=== PATIENT | male | born 1935 | race Two or more races ===

== ENCOUNTER → 2016-11-05 | Outpatient (CLI) | payer MEDICARE, BC ==
[2016-09-16 08:30] VITALS: BP 146/71
[~2016-11-05] MED LIST: ASPI81TA9 PO; ATOR10TA60 PO; CELE200C PO; DULO60CA44 PO; GLIM4TAB2 PO; INSU100V8 SQ; METF500T4 PO; METO25TA4 PO; MIDO2.5T PO; TAMS0.4C2 PO
== END | disposition home or self-care (01) ==
LOC: LAB 15:57
PROVIDERS: ATTEND Nurse Practitioner Occupational Health
DX: N40.0 Benign prostatic hyperplasia without lower urinary tract symptoms (principal)
CPT/HCPCS: 36415; G0103

== ENCOUNTER 2017-01-03 19:43 | Inpatient (IN) | payer MEDICARE, BC ==
[~2017-01-03] VITALS: Ht 175.3 cm; Wt 64.1 kg
[2017-01-03 21:55] LABS: BASO % 0 % (0-3); EOS % 2 % (0-3); HEMATOCRIT 37.6 % (39.0-53.0); HEMOGLOBIN 12.2 g/dL (13.0-17.5); LYMPH # 1.5 x10^3/uL (1.0-4.8); LYMPH % 16 % (24-48); MEAN CORPUSCULAR HEMOGLOBIN 28 pg (25-35); MEAN CORPUSCULAR HGB CONC 33 g/dL (31-37); MEAN CORPUSCULAR VOLUME 86 fL (79-100); MONO % 10 % (0-9); NEUT % 73 % (31-73); PLATELET COUNT 259 x10^3/uL (140-400); RED BLOOD COUNT 4.36 x10^6/uL (4.30-5.70); RED CELL DISTRIBUTION WIDTH 13.6 % (11.5-14.5); WHITE BLOOD COUNT 9.2 x10^3/uL (4.0-11.0)
[2017-01-03] MEDS ORDERED: IV NORMAL SALINE 500ML BAG 500 ML IV SCH (22:00)
[2017-01-03 22:03] LABS: INR 1.2 (0.8-1.1); PROTHROMBIN TIME PATIENT 14.1 SEC (11.7-14.0)
[2017-01-03 22:05] LABS: CALCIUM 9.5 mg/dL (8.5-10.1); CREATININE 1.5 mg/dL (0.7-1.3); POTASSIUM 4.2 mmol/L (3.5-5.1)
[2017-01-03 22:11] LABS: ALBUMIN 2.9 g/dL (3.4-5.0); ALBUMIN/GLOBULIN RATIO 0.5 (1.0-1.7); DIRECT BILIRUBIN 0.2 mg/dL (0.0-0.2); TOTAL BILIRUBIN 0.8 mg/dL (0.2-1.0); TOTAL PROTEIN 8.4 g/dL (6.4-8.2)
--- NOTE | 2017-01-03 22:28 | RAD ---
PROCEDURE CT ABDOMEN AND PELVIS HISTORY rectal bleed; abd pain TECHNIQUE AXIAL IMAGES THROUGH THE THE ABDOMEN AND PELVIS WERE OBTAINED. NO IV CONTRAST WAS ADMINISTERED. THERE IS SOME CONTRAST AND PART OF THE GASTROINTESTINAL SYSTEM. COMPARISON NONE FINDINGS THE LUNG BASES ARE CLEAR. THE LIVER AND SPLEEN APPEAR UNREMARKABLE. THERE IS CHOLELITHIASIS THE PANCREAS APPEARS UNREMARKABLE. THERE ARE NO ADRENAL MASSES. THERE IS CONSIDERABLE STRANDING SURROUNDING THE LEFT KIDNEY. THE ETIOLOGY IS UNCLEAR. UNDERLYING INFECTION, PYELONEPHRITIS, ACCOUNTING FOR THE APPEARANCE SHOULD BE CONSIDERED. THERE IS NO HYDRONEPHROSIS THERE IS NO HYDROURETER. AN ADDITIONAL FINDING IN THE ABDOMEN IS NOT SEEN. IN THE PELVIS THERE IS SLIGHT THICKENING OF THE URINARY BLADDER. THIS MAY REFLECT A CHRONIC OUTLET OBSTRUCTIVE PROCESS. UNDERLYING CYSTITIS IS NOT EXCLUDED. AN ADDITIONAL FINDING IN THE PELVIS IS NOT SEEN. IMPRESSION Cholelithiasis. Stranding surrounding the left kidney. Infection, pyelonephritis, not excluded. Mild diffuse thickening of the urinary bladder wall suggesting possible chronic outlet obstructive process or cystitis Electronically signed by: Josesito Alvarez (Jan 03, 2017 22:27:15)
[2017-01-03] MEDS ORDERED: IV NORMAL SALINE 500ML BAG 500 ML IV ONE (23:12)
--- NOTE | 2017-01-03 23:15 | PHYS DOC ---
Past Medical History Past Medical History: Diabetes-Type II, Prostatitis, URI, Other Additional Past Medical Histor: enlarged prostate Past Surgical History: Other Additional Past Surgical Histo: R eye sx, Alcohol Use: None Drug Use: None Adult General Chief Complaint Chief Complaint: RECTAL BLEED HPI HPI 81-year-old male presenting the emergency department today to the emergency department with dark black stools for the past few days. He denies abdominal pain. He denies fevers or chills. He is not on anticoagulants. He has a history of type 2 diabetes. Location GI tract. Duration intermittent. Associated with defecation. Review of systems is negative for chest pain shortness of breath fevers chills. He denies nausea or vomiting. All other review of systems is negative unless otherwise noted in history of present illness. Review of Systems Review of Systems SEE ABOVE. Current Medications Current Medications Current Medications Medications (Trade) Dose Ordered Sig/Chay Start Time Stop Time Status Last Admin Dose Admin Sodium Chloride (Iv Sodium Chloride 0.9% 500ml Bag) 500 ml @ 500 mls/hr Q1H 01/03/17 22:00 Allergies Allergies Allergies Coded Allergies Type Severity Reaction Last Updated Verified No Known Drug Allergies 05/31/15 No Physical Exam Physical Exam Constitutional: Well developed, well nourished, no acute distress, non-toxic appearance. HENT: Normocephalic, atraumatic, bilateral external ears normal, oropharynx moist, no oral exudates, nose normal. [] Eyes: PERRLA, EOMI, conjunctiva normal, no discharge. [] Neck: Normal range of motion, no tenderness, supple, no stridor. Cardiovascular:mild tachy heart rate with regular rhythm, no murmur [] Lungs & Thorax: Bilateral breath sounds clear to auscultation Abdomen: Bowel sounds normal, soft, no tenderness, no masses, no pulsatile masses. Rectal exam showed mildly dark stool. Fecal occult testing sent. Skin: Warm, dry, no erythema, no rash. [] Back: No tenderness, no CVA tenderness. Extremities: No tenderness, no cyanosis, no clubbing, ROM intact, no edema. [] Neurologic: Alert and oriented X 3, normal motor function, normal sensory function, no focal deficits noted. [] Psychologic: Affect normal, judgement normal, mood normal. [] Current Patient Data Vital Signs Vital Signs Date Time Temp Pulse Resp B/P Pulse Ox O2 Delivery O2 Flow Rate FiO2 01/03/17 19:43 98.4 113 18 129/66 97 Room Air 98.4 Lab Values Laboratory Tests Test 01/03/17 20:14 White Blood Count 9.2x10^3/uL (4.0-11.0) Red Blood Count 4.36x10^6/uL (4.30-5.70) Hemoglobin 12.2g/dL (13.0-17.5) L Hematocrit 37.6% (39.0-53.0) L Mean Corpuscular Volume 86fL (79-100) Mean Corpuscular Hemoglobin 28pg (25-35) Mean Corpuscular Hemoglobin Concent 33g/dL (31-37) Red Cell Distribution Width 13.6% (11.5-14.5) Platelet Count 259x10^3/uL (140-400) # Neutrophils (%) (Auto) 73% (31-73) Lymphocytes (%) (Auto) 16% (24-48) L Monocytes (%) (Auto) 10% (0-9) H Eosinophils (%) (Auto) 2% (0-3) Basophils (%) (Auto) 0% (0-3) Neutrophils # (Auto) 6.7x10^3uL (1.8-7.7) Lymphocytes # (Auto) 1.5x10^3/uL (1.0-4.8) Monocytes # (Auto) 0.9x10^3/uL (0.0-1.1) Eosinophils # (Auto) 0.2x10^3/uL (0.0-0.7) Basophils # (Auto) 0.0x10^3/uL (0.0-0.2) Prothrombin Time 14.1SEC (11.7-14.0) H Prothrombin Time INR 1.2 (0.8-1.1) H PTT 40SEC (24-38) H Sodium Level 136mmol/L (136-145) Potassium Level 4.2mmol/L (3.5-5.1) Chloride Level 94mmol/L (98-107) L Carbon Dioxide Level 26mmol/L (21-32) Anion Gap 16 (6-14) H Blood Urea Nitrogen 32mg/dL (8-26) H Creatinine 1.5mg/dL (0.7-1.3) H Estimated GFR (Cockcroft-Gault) 45.0 BUN/Creatinine Ratio 21 (6-20) H Glucose Level 332mg/dL (70-99) H Calcium Level 9.5mg/dL (8.5-10.1) Total Bilirubin 0.8mg/dL (0.2-1.0) Direct Bilirubin 0.2mg/dL (0.0-0.2) Aspartate Amino Transferase (AST) 17U/L (15-37) Alanine Aminotransferase (ALT) 16U/L (16-63) Alkaline Phosphatase 152U/L (46-116) H Total Protein 8.4g/dL (6.4-8.2) H Albumin 2.9g/dL (3.4-5.0) L Albumin/Globulin Ratio 0.5 (1.0-1.7) L Laboratory Tests 01/03/17 20:14 Laboratory Tests 01/03/17 20:14 EKG EKG [] Radiology/Procedures Radiology/Procedures [] Course & Med Decision Making Course & Med Decision Making Pertinent Labs and Imaging studies reviewed. (See chart for details) [] 81-year-old male presenting to the emergency department today after having dark stool consistent with blood in his stool. Vital signs showed tachycardia otherwise unremarkable. Physical exam showed nontender abdomen. Blood work sent which showed stable anemia. Coags normal. Chemistry panel shows uremia with elevation in creatinine. Hyperglycemia as well. Otherwise unremarkable. Rectal exam showed dark stool fecal occult blood sent. Patient was given IV fluids protonic sent admitted to our hospital for GI consultation. Dragon Disclaimer Dragon Disclaimer This electronic medical record was generated, in whole or in part, using a voice recognition dictation system. Departure Departure Impression: Primary Impression: Melena Disposition: ADMITTED INPATIENT Condition: STABLE Referrals: LUISITO RUSSELL MD (PCP) ILENE LOMBARDI MD Jan 03, 2017 23:15
[2017-01-03 23:18] LABS: NEG OBC FOB NEG; POS OBC FOB POS
[2017-01-03] MEDS ORDERED: PANTOPRAZOLE IV PUSH 40 MG VIAL. IVP ONE (23:30)
[2017-01-03 23:41] LABS: BILIRUBIN,URINE NEGATIVE (NEG); GLUCOSE,URINE >=1000 mg/dL (NEG); NITRITE,URINE NEGATIVE (NEG); PROTEIN,URINE 30 mg/dL (NEG-TRACE)
[2017-01-03 23:49] LABS: BACTERIA,URINE MANY /HPF (0-FEW); RBC,URINE 20-40 /HPF (0-2); SQUAMOUS EPITHELIAL CELL,UR FEW /LPF; WBC,URINE TNTC /HPF (0-4)
[2017-01-04] VITALS (7 sets, daily range): BP systolic 102–168; BP diastolic 59–76
[2017-01-04] MEDS ORDERED: IV NORMAL SALINE 1000ML BAG 1,000 ML IV ONE (00:15)
[2017-01-04 04:48] LABS: BASO % 1 % (0-3); EOS % 2 % (0-3); HEMATOCRIT 36.5 % (39.0-53.0); HEMOGLOBIN 11.8 g/dL (13.0-17.5); LYMPH # 1.4 x10^3/uL (1.0-4.8); LYMPH % 18 % (24-48); MEAN CORPUSCULAR HEMOGLOBIN 28 pg (25-35); MEAN CORPUSCULAR HGB CONC 32 g/dL (31-37); MEAN CORPUSCULAR VOLUME 86 fL (79-100); MONO % 11 % (0-9); NEUT % 69 % (31-73); PLATELET COUNT 229 x10^3/uL (140-400); RED BLOOD COUNT 4.24 x10^6/uL (4.30-5.70); RED CELL DISTRIBUTION WIDTH 13.6 % (11.5-14.5)
[2017-01-04 05:16] LABS: CALCIUM 8.9 mg/dL (8.5-10.1); CREATININE 1.3 mg/dL (0.7-1.3); GFR 53.1; POTASSIUM 4.2 mmol/L (3.5-5.1)
[2017-01-04] MEDS ORDERED: DEXTROSE 50% 25 GM / 50ML DISP.SYRIN. IV PRN (08:30)
--- NOTE | 2017-01-04 08:44 | PDOC ---
Provider Note Provider Note [id number] RADHA WILL MD Jan 04, 2017 08:44
[2017-01-04] MEDS ORDERED: PANTOPRAZOLE 40 MG TABLET. PO SCH (09:30)
[2017-01-04] MEDS: CEFTRIAXONE SODIUM 1 GM in IV NORMAL SALINE 50ML 50 ML IV SCH (09:34)
[2017-01-04] MEDS: IV 1/2 NORMAL SALINE 1,000 ML IV SCH ×2 (09:35→23:26)
[2017-01-04] MEDS: DULOXETINE HCL 30 MG CAPSULE.DR. PO SCH (09:36)
[2017-01-04] MEDS: METOPROLOL TART IMMED RELEASE 25 MG TABLET PO SCH ×2 (09:40→20:53)
[2017-01-04] MEDS: TAMSULOSIN 0.4 MG CAP.ER.24H. PO SCH (09:40)
--- NOTE | 2017-01-04 10:17 | PDOC2 ---
CONSULT Date of Consult Date of Consult DATE: 01/04/17 TIME: 10:03 Reason for Consult Reason for Consult: "Melena" Referring Physician Referring Physician: ER physician Source Source: Chart review, Patient History of Present Illness Reason for Visit: 81 y/o male we were asked to see for "melena". Patient denies any black stools or overt hematochezia, but does admit to hematuria (urology has been consulted) . Denies abdominal pain, nausea, vomiting, diarrhea or constipation. When we saw him last September, he had been having diarrhea from his metformin; this stopped with stopping the med. Wt/appetite stable. No prior endoscopies of any kind. Denies heartburn, dysphagia, PUD, liver or pancreatic history. On imaging this admission, gallstones noted. No tobacco or alcohol use currently. Per "summary" taking ASA and Celebrex at home. Past Medical History Cardiovascular: CAD (NSTEMI last September), HTN, Hyperlipidemia Psych: Anxiety, Depression Musculoskeletal: Osteoarthritis Renal/: Benign prostatic enlarg., Hematuria Endocrine: Diabetes Past Surgical History Past Surgical History: Tonsillectomy, Other (some surgery on right eye) Family History Family History Non-contributory due to age. Family History: Other Social History No ALCOHOL: none Drugs: None Lives: with Family Current Problem List Problem List Problems Medical Problems: (1) Melena Status: Acute Current Medications Current Medications Current Medications Sodium Chloride (Iv Sodium Chloride 0.9% 500ml Bag) 500 ml @ 500 mls/hr Q1H IV ; Start 01/03/17 at 22:00; Stop 01/03/17 at 23:12; Status DC Pantoprazole Sodium 40 mg 40 mg 1X ONCE IVP Last administered on 01/03/17 23: 20; Start 01/03/17 at 23:30; Stop 01/03/17 at 23:31; Status DC Sodium Chloride 500 ml @ 500 mls/hr 1X ONCE IV Last administered on 01/03/17 22:12; Start 01/03/17 at 23:12; Stop 01/04/17 at 00:11; Status DC Sodium Chloride (Iv Sodium Chloride 0.9% 1000ml Bag) 1,000 ml @ 125 mls/hr 1X ONCE IV Last administered on 01/04/17 00:57; Start 01/04/17 at 00:15; Stop at 08:14; Status DC Metoprolol Tartrate (Lopressor) 25 mg BID PO Last administered on 01/04/17 09: 40; Start 01/04/17 at 09:00 Tamsulosin HCl (Flomax) 0.4 mg DAILY PO Last administered on 01/04/17 09:40; Start 01/04/17 at 09:00 Duloxetine HCl (Cymbalta) 60 mg DAILY PO Last administered on 01/04/17 09:36; Start 01/04/17 at 09:00 Sucralfate (Carafate) 1 gm QIDACHS PO ; Start 01/04/17 at 11:30 Pantoprazole Sodium 40 mg 40 mg DAILYAC PO Last administered on 01/04/17 09:40 ; Start 01/04/17 at 09:30 Ceftriaxone Sodium/Sodium Chloride (Rocephin/Iv Sodium Chloride 0.9% 50ml) 50 ml @ 100 mls/hr Q24H IV Last administered on 01/04/17 09:34; Start 01/04/17 at 08:30 Insulin Aspart (Novolog) 0-9 UNITS TIDWMEALS SQ ; Start 01/04/17 at 12:00 Dextrose 12.5 gm 12.5 gm PRN Q15MIN PRN IV SEE COMMENTS; Start 01/04/17 at 08:30 Sodium Chloride (Iv Sodium Chloride 0.45%) 1,000 ml @ 75 mls/hr [id number] IV Last administered on 01/04/17 09:35; Start 01/04/17 at 08:45 Insulin Detemir (Levemir) 15 units [id number] SQ ; Start 01/04/17 at 12:00 Active Scripts Active Aspirin Ec (Aspirin) 81 Mg Tablet. 324 Mg PO [id number] Atorvastatin Calcium 10 Mg Tablet 10 Mg PO QHS Metoprolol Tartrate 25 Mg Tablet 25 Mg PO BID Midodrine Hcl 2.5 Mg Tablet 2.5 Mg PO [id number] Reported Lantus (Insulin Glargine,Hum.rec.anlog) 100 Unit/1 Ml Vial 1 Unit SQ Glimepiride 4 Mg Tablet 4 Mg PO DAILY Celebrex (Celecoxib) 200 Mg Capsule 200 Mg PO BID 30 Days Duloxetine Hcl 60 Mg Capsule. 60 Mg PO DAILY Tamsulosin Hcl 0.4 Mg Cap.er.24h 0.4 Mg PO DAILY Allergies Allergies: Coded Allergies: No Known Drug Allergies (Unverified , 05/31/15) ROS Review of System Except for hematuria, 10-point review otherwise negative. Physical Exam General: Oriented X3, Cooperative, No acute distress Lungs: Clear to auscultation Heart: Regular rate, Normal S1, Normal S2, No murmurs Abdomen: Normal bowel sounds, Soft, No tenderness, No hepatosplenomegaly, No masses Extremities: No cyanosis, No edema Skin: No significant lesion Neuro: Normal speech, Strength at 5/5 X4 ext, Normal tone, Sensation intact, Cranial nerves 3-12 NL, Reflexes 2+ Psych/Mental Status: Mental status NL, Mood NL MUSCULOSKELETAL: No deformity, No swelling Vitals VITALS Vital Signs Date Time Temp Pulse Resp B/P Pulse Ox O2 Delivery O2 Flow Rate FiO2 01/04/17 09:40 105 139/76 01/04/17 07:00 97.6 18 96 Room Air 97.6 Labs Labs Laboratory Tests Test 01/03/17 20:14 01/03/17 23:00 01/03/17 23:23 01/04/17 03:50 White Blood Count 9.2x10^3/uL (4.0-11.0) 8.0x10^3/uL (4.0-11.0) Red Blood Count 4.36x10^6/uL (4.30-5.70) 4.24x10^6/uL (4.30-5.70) Hemoglobin 12.2g/dL (13.0-17.5) 11.8g/dL (13.0-17.5) Hematocrit 37.6% (39.0-53.0) 36.5% (39.0-53.0) Mean Corpuscular Volume 86fL (79-100) 86fL (79-100) Mean Corpuscular Hemoglobin 28pg (25-35) 28pg (25-35) Mean Corpuscular Hemoglobin Concent 33g/dL (31-37) 32g/dL (31-37) Red Cell Distribution Width 13.6% (11.5-14.5) 13.6% (11.5-14.5) Platelet Count 259x10^3/uL (140-400) 229x10^3/uL (140-400) Neutrophils (%) (Auto) 73% (31-73) 69% (31-73) Lymphocytes (%) (Auto) 16% (24-48) 18% (24-48) Monocytes (%) (Auto) 10% (0-9) 11% (0-9) Eosinophils (%) (Auto) 2% (0-3) 2% (0-3) Basophils (%) (Auto) 0% (0-3) 1% (0-3) Neutrophils # (Auto) 6.7x10^3uL (1.8-7.7) 5.5x10^3uL (1.8-7.7) Lymphocytes # (Auto) 1.5x10^3/uL (1.0-4.8) 1.4x10^3/uL (1.0-4.8) Monocytes # (Auto) 0.9x10^3/uL (0.0-1.1) 0.9x10^3/uL (0.0-1.1) Eosinophils # (Auto) 0.2x10^3/uL (0.0-0.7) 0.2x10^3/uL (0.0-0.7) Basophils # (Auto) 0.0x10^3/uL (0.0-0.2) 0.0x10^3/uL (0.0-0.2) Prothrombin Time 14.1SEC (11.7-14.0) Prothromb Time International Ratio 1.2 (0.8-1.1) Activated Partial Thromboplast Time 40SEC (24-38) Sodium Level 136mmol/L (136-145) 139mmol/L (136-145) Potassium Level 4.2mmol/L (3.5-5.1) 4.2mmol/L (3.5-5.1) Chloride Level 94mmol/L (98-107) 102mmol/L (98-107) Carbon Dioxide Level 26mmol/L (21-32) 26mmol/L (21-32) Anion Gap 16 (6-14) 11 (6-14) Blood Urea Nitrogen 32mg/dL (8-26) 28mg/dL (8-26) Creatinine 1.5mg/dL (0.7-1.3) 1.3mg/dL (0.7-1.3) Estimated GFR (Cockcroft-Gault) 45.0 53.1 BUN/Creatinine Ratio 21 (6-20) Glucose Level 332mg/dL (70-99) 215mg/dL (70-99) Calcium Level 9.5mg/dL (8.5-10.1) 8.9mg/dL (8.5-10.1) Total Bilirubin 0.8mg/dL (0.2-1.0) Direct Bilirubin 0.2mg/dL (0.0-0.2) Aspartate Amino Transf (AST/SGOT) 17U/L (15-37) Alanine Aminotransferase (ALT/SGPT) 16U/L (16-63) Alkaline Phosphatase 152U/L (46-116) Total Protein 8.4g/dL (6.4-8.2) Albumin 2.9g/dL (3.4-5.0) Albumin/Globulin Ratio 0.5 (1.0-1.7) Stool Occult Blood Negative (NEG) Urine Collection Type Unknown Urine Color Yellow Urine Clarity Cloudy Urine pH 5.0 Urine Specific [place] 1.025 Urine Protein 30mg/dL (NEG-TRACE) Urine Glucose (UA) >=1000mg/dL (NEG) Urine Ketones (Stick) 15mg/dL (NEG) Urine Blood Large (NEG) Urine Nitrite Negative (NEG) Urine Bilirubin Negative (NEG) Urine Urobilinogen Dipstick 1.0mg/dL (0.2 mg/dL) Urine Leukocyte Esterase Moderate (NEG) Urine RBC 20-40/HPF (0-2) Urine WBC Tntc/HPF (0-4) Urine Squamous Epithelial Cells Few/LPF Urine Bacteria Many/HPF (0-FEW) Urine Mucus Slight/LPF Test 01/04/17 07:04 Glucose (Fingerstick) 175mg/dL (70-99) Laboratory Tests Test 01/03/17 20:14 01/03/17 23:00 01/03/17 23:23 01/04/17 03:50 White Blood Count 9.2x10^3/uL (4.0-11.0) 8.0x10^3/uL (4.0-11.0) Red Blood Count 4.36x10^6/uL (4.30-5.70) 4.24x10^6/uL (4.30-5.70) Hemoglobin 12.2g/dL (13.0-17.5) 11.8g/dL (13.0-17.5) Hematocrit 37.6% (39.0-53.0) 36.5% (39.0-53.0) Mean Corpuscular Volume 86fL (79-100) 86fL (79-100) Mean Corpuscular Hemoglobin 28pg (25-35) 28pg (25-35) Mean Corpuscular Hemoglobin Concent 33g/dL (31-37) 32g/dL (31-37) Red Cell Distribution Width 13.6% (11.5-14.5) 13.6% (11.5-14.5) Platelet Count 259x10^3/uL (140-400) 229x10^3/uL (140-400) Neutrophils (%) (Auto) 73% (31-73) 69% (31-73) Lymphocytes (%) (Auto) 16% (24-48) 18% (24-48) Monocytes (%) (Auto) 10% (0-9) 11% (0-9) Eosinophils (%) (Auto) 2% (0-3) 2% (0-3) Basophils (%) (Auto) 0% (0-3) 1% (0-3) Neutrophils # (Auto) 6.7x10^3uL (1.8-7.7) 5.5x10^3uL (1.8-7.7) Lymphocytes # (Auto) 1.5x10^3/uL (1.0-4.8) 1.4x10^3/uL (1.0-4.8) Monocytes # (Auto) 0.9x10^3/uL (0.0-1.1) 0.9x10^3/uL (0.0-1.1) Eosinophils # (Auto) 0.2x10^3/uL (0.0-0.7) 0.2x10^3/uL (0.0-0.7) Basophils # (Auto) 0.0x10^3/uL (0.0-0.2) 0.0x10^3/uL (0.0-0.2) Prothrombin Time 14.1SEC (11.7-14.0) Prothromb Time International Ratio 1.2 (0.8-1.1) Activated Partial Thromboplast Time 40SEC (24-38) Sodium Level 136mmol/L (136-145) 139mmol/L (136-145) Potassium Level 4.2mmol/L (3.5-5.1) 4.2mmol/L (3.5-5.1) Chloride Level 94mmol/L (98-107) 102mmol/L (98-107) Carbon Dioxide Level 26mmol/L (21-32) 26mmol/L (21-32) Anion Gap 16 (6-14) 11 (6-14) Blood Urea Nitrogen 32mg/dL (8-26) 28mg/dL (8-26) Creatinine 1.5mg/dL (0.7-1.3) 1.3mg/dL (0.7-1.3) Estimated GFR (Cockcroft-Gault) 45.0 53.1 BUN/Creatinine Ratio 21 (6-20) Glucose Level 332mg/dL (70-99) 215mg/dL (70-99) Calcium Level 9.5mg/dL (8.5-10.1) 8.9mg/dL (8.5-10.1) Total Bilirubin 0.8mg/dL (0.2-1.0) Direct Bilirubin 0.2mg/dL (0.0-0.2) Aspartate Amino Transf (AST/SGOT) 17U/L (15-37) Alanine Aminotransferase (ALT/SGPT) 16U/L (16-63) Alkaline Phosphatase 152U/L (46-116) Total Protein 8.4g/dL (6.4-8.2) Albumin 2.9g/dL (3.4-5.0) Albumin/Globulin Ratio 0.5 (1.0-1.7) Stool Occult Blood Negative (NEG) Urine Collection Type Unknown Urine Color Yellow Urine Clarity Cloudy Urine pH 5.0 Urine Specific [place] 1.025 Urine Protein 30mg/dL (NEG-TRACE) Urine Glucose (UA) >=1000mg/dL (NEG) Urine Ketones (Stick) 15mg/dL (NEG) Urine Blood Large (NEG) Urine Nitrite Negative (NEG) Urine Bilirubin Negative (NEG) Urine Urobilinogen Dipstick 1.0mg/dL (0.2 mg/dL) Urine Leukocyte Esterase Moderate (NEG) Urine RBC 20-40/HPF (0-2) Urine WBC Tntc/HPF (0-4) Urine Squamous Epithelial Cells Few/LPF Urine Bacteria Many/HPF (0-FEW) Urine Mucus Slight/LPF Test 01/04/17 07:04 Glucose (Fingerstick) 175mg/dL (70-99) Hemoglobin stable and about at recent historical levels. BUN/creatinine not markedly elevated. Apparent hyperglobulinemia; has been present for some time. UA c/w UTI. Stool heme negative. Images Images On CT: IMPRESSION Cholelithiasis. Stranding surrounding the left kidney. Infection, pyelonephritis, not excluded. Mild diffuse thickening of the urinary bladder wall suggesting possible chronic outlet obstructive process or cystitis Electronically signed by: Josesito Alvarez (Jan 03, 2017 22:27:15) Have reviewed study and agree. Assessment/Plan Assessment/Plan IMP: 1. "Melena"--patient denies and heme negative stool. While it would be theoretically possible to have heme negative melena, it's not likely. No evidence for any GI bleeding. 2. 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 Urologic opinion surely needed. 3. Apparent hyperglobulinemia. If not previously evaluated, consider SPEP and/or quantitative Ig's. 4. Asymptomatic cholelithiasis. REC: We will stand by, but no indication for GI investigation at this point. Probably does not need any anti-secretory. Thank you for allowing us to assist in the care of this patient. Please call if questions. BENITO BELTRÁN MD Jan 04, 2017 10:17
--- NOTE | 2017-01-04 11:09 | HP ---
ADMIT DATE: 01/04/2017 CHIEF COMPLAINT: Melena. HISTORY OF PRESENT ILLNESS: An 81-year-old male, patient of Dr. Prater, who is a poorly-controlled diabetic and with a history of hypertension. He apparently was doing self-catheterization at home well, but it was not clear who his urologist is. He has noticed some "blood in his urine" lately and also saw some "red stools at home," but the stool was heme negative in the ER. He has been on aspirin for about the last 3 months for peripheral arterial disease, which he takes once or twice a day according to him. He denies nausea, vomiting, dysphagia, heartburn, dysuria, odor in his urine, fever, chills, or other complaints. PAST MEDICAL HISTORY: Documented in the old records, poorly-controlled diabetic with hemoglobin A1c of over 10, apparently is taking only glimepiride at home. MEDICATIONS: Other medications are listed per the chart. SOCIAL HISTORY: Nonsmoker, nondrinker, lives with family who takes care of him. Apparently, he is . FAMILY HISTORY: Unremarkable. REVIEW OF SYSTEMS: No other known problems. OBJECTIVE: ENT: He is nearly edentulous. Otherwise, all within normal limits. His mouth is dry. NECK: Revealed no carotid bruits. NODES: Masses or thyroid enlargement. LUNGS: Clear without tachypnea. CARDIOVASCULAR: Regular rate. No irregular beat or murmur. ABDOMEN: Soft, benign, nontender. Flanks nontender. RECTAL: Deferred. EXTREMITIES: Poor pedal and radial pulses. Skin turgor decreased. NEUROLOGIC: Physiologic, nonfocal, oriented x 4. ASSESSMENT: 1. History of either melena or hematochezia with the patient taking aspirin, most likely source would be aspirin-induced gastritis. He states he had "normal colonoscopy" 2 to 3 years ago at [facility]. 2. Possible hematuria, apparently history of self-catheterization, and he does have evidence of urinary tract infection per the urine tests. 3. Poorly-controlled diabetes mellitus. 4. Peripheral arterial disease. PLAN: Rocephin pending urine culture. We will continue with some IV fluids, add Carafate and Protonix and let him eat. We will certainly hold the aspirin, just follow the evidence of GI bleeding clinically, but his hemoglobin is still around 11.8. We will institute insulin therapy at this point as well to control hyperglycemia and dehydration. RADHA WILL MD DR: VICENTE/vielka JOB#: [id number] / [id number]
[2017-01-04] MEDS ORDERED: SUCRALFATE 1 GM/10 ML ORAL.SUSP. PO SCH (11:30)
[2017-01-04] MEDS: INSULIN ASPART 300 UNITS/3 ML INSULN.PEN SQ SCH ×2 (13:28→17:00)
[2017-01-04] MEDS: INSULIN DETEMIR 300 UNITS/3 ML INSULN.PEN. SQ SCH ×2 (13:29→17:58)
[2017-01-05 03:00] VITALS: BP 107/73
[2017-01-05 05:13] LABS: HEMATOCRIT 32.5 % (39.0-53.0); HEMOGLOBIN 10.6 g/dL (13.0-17.5); RED BLOOD COUNT 3.82 x10^6/uL (4.30-5.70); RED CELL DISTRIBUTION WIDTH 13.6 % (11.5-14.5); WHITE BLOOD COUNT 7.9 x10^3/uL (4.0-11.0)
[2017-01-05 07:00] VITALS: BP 166/89
[2017-01-05] MEDS: INSULIN ASPART 300 UNITS/3 ML INSULN.PEN SQ SCH ×3 (08:00→17:00)
--- NOTE | 2017-01-05 08:15 | PDOC ---
Provider Note Provider Note vss, no temp, exam same - gluc ose better w/ insulin, urine cult pending- hb down a little- cont rocephin pending cult and uro consult RADHA WILL MD Jan 05, 2017 08:15
[2017-01-05] MEDS: METOPROLOL TART IMMED RELEASE 25 MG TABLET PO SCH ×2 (08:44→21:00)
[2017-01-05] MEDS: DULOXETINE HCL 30 MG CAPSULE.DR. PO SCH (08:44)
[2017-01-05] MEDS: TAMSULOSIN 0.4 MG CAP.ER.24H. PO SCH (08:44)
[2017-01-05] MEDS: CEFTRIAXONE SODIUM 1 GM in IV NORMAL SALINE 50ML 50 ML IV SCH (08:45)
--- NOTE | 2017-01-05 09:16 | PDOC ---
SUBJECTIVE Subjective Pt. admitted with UTI OBJECTIVE Objective Pt. with hx. of BPH and urinary retention Vital Signs Vital Signs Date Time Temp Pulse Resp B/P Pulse Ox O2 Delivery O2 Flow Rate FiO2 01/05/17 08:44 91 166/89 01/05/17 07:00 97.9 91 19 166/89 97 Room Air 97.9 01/05/17 03:00 97.5 82 18 107/73 96 Room Air 97.5 01/04/17 23:00 98.6 86 20 102/66 97 Room Air 98.6 01/04/17 20:53 95 108/69 01/04/17 19:18 Room Air 01/04/17 19:00 98.1 95 20 108/69 98 Room Air 98.1 01/04/17 15:00 98.6 96 20 110/60 96 Room Air 98.6 01/04/17 11:00 97.6 101 24 155/59 97 Room Air 97.6 01/04/17 09:40 105 139/76 I & O Intake and Output 01/05/17 07:00 Intake Total 1816 ml Output Total 1000 ml Balance 816 ml Intake Oral 1040 ml IV Total 776 ml Output Urine Total 1000 ml # Voids 2 # Bowel Movements 6 PHYSICAL EXAM Physical Exam UA-pos for UTI On rocephin PVR-500 cc ASSESSMENT/PLAN Assessment/Plan alcaraz continue flomax and proscar F/U in urology office with urology [employer] Sondra Gibbs for voiding trial and to get back on ISC in 1-2 weeks Problems: COMMENT Lab Laboratory Tests Test 01/04/17 12:07 01/04/17 17:54 01/04/17 21:00 01/05/17 05:00 Glucose (Fingerstick) 271mg/dL (70-99) 70mg/dL (70-99) 139mg/dL (70-99) White Blood Count 7.9x10^3/uL (4.0-11.0) Red Blood Count 3.82x10^6/uL (4.30-5.70) Hemoglobin 10.6g/dL (13.0-17.5) Hematocrit 32.5% (39.0-53.0) Mean Corpuscular Volume 85fL (79-100) Mean Corpuscular Hemoglobin 28pg (25-35) Mean Corpuscular Hemoglobin Concent 33g/dL (31-37) Red Cell Distribution Width 13.6% (11.5-14.5) Platelet Count 213x10^3/uL (140-400) Test 01/05/17 07:49 01/05/17 08:20 01/05/17 08:56 Glucose (Fingerstick) 52mg/dL (70-99) 54mg/dL (70-99) 86mg/dL (70-99) CARMEN MORSE MD Jan 05, 2017 09:16
[2017-01-05 10:41] VITALS: BP_SYST 108; BP_SYST 112; BP_DIAS 54; BP_DIAS 55
[2017-01-05] MEDS: IV 1/2 NORMAL SALINE 1,000 ML IV SCH (11:25)
--- NOTE | 2017-01-05 11:27 | PDOC ---
Subjective: Subjective: Pt denies bleeding and pain. Per daughter - saw dark red blood in stool at home prior to admission - tells me no previous colonoscopy, asks about scheduling this. Asks about gallstones. Objective: Objective: Per RN - normal stool yesterday. Vital Signs: Vital Signs Date Time Temp Pulse Resp B/P Pulse Ox O2 Delivery O2 Flow Rate FiO2 01/05/17 10:41 97.6 64 19 108/55 91 Room Air 97.6 Labs: Laboratory Tests Test 01/04/17 12:07 01/04/17 17:54 01/04/17 21:00 01/05/17 07:49 Glucose (Fingerstick) 271mg/dL (70-99) 70mg/dL (70-99) 139mg/dL (70-99) 52mg/dL (70-99) Test 01/05/17 08:20 01/05/17 08:56 Glucose (Fingerstick) 54mg/dL (70-99) 86mg/dL (70-99) PE: GEN: NAD LUNGS: clear anteriorly HEART: S1S2 ABD: S/ND/NT NEURO/PSYCH: A & O 3 OTHER: daughter present A/P: Blood in stool -heme neg in ER, Hgb 12.2 to 10.6 -RN reports normal-colored BM yesterday, daughter saw dark red blood in stool at home -no previous colonoscopy per daughter Cholelithiasis -asymptomatic UTI, urinary retention, hematuria -urology following, plans for Marley -- Will review w/ Dr. Solitario. HAILEE AGUILAR Jan 05, 2017 11:27
[2017-01-05 15:00] VITALS: BP 103/56
[2017-01-05] MEDS: INSULIN DETEMIR 300 UNITS/3 ML INSULN.PEN. SQ SCH (18:00)
[2017-01-05 19:00] VITALS: BP 94/45
[2017-01-05 23:00] VITALS: BP 104/52
[2017-01-06] MEDS: IV 1/2 NORMAL SALINE 1,000 ML IV SCH (00:40)
--- NOTE | 2017-01-06 01:05 | CONS ---
DATE OF CONSULTATION: 01/05/2017 LOCATION: The patient's room 500. HISTORY OF PRESENT ILLNESS: The patient is a very pleasant 81-year-old male with history of BPH, elevated postvoid residuals. He has been on both Proscar and Flomax. He was voiding spontaneously on his own last year and had residual in the 160 mL range, then he started having some increased residuals and was started on intermittent self-catheterization here in the past couple of months by nurse practitioner, Sondra Gibbs of Urology. The patient came in the hospital with urinary tract infection and started on Rocephin. He had a CT scan which showed no hydronephrosis, but some perinephric stranding on the left side. Creatinine 1.3. The patient is able to void. He voided 300 mL, but had 500 mL residual. PHYSICAL EXAMINATION: GENITOURINARY: Testes are descended bilaterally. The patient has hypospadiac meatus. RECTAL: Good sphincter tone. Prostate smooth, nontender, without nodules, overall size 30 grams. The patient had previous cystoscopy, which showed BPH. The patient has a PSA from this past year, was less than 1. We will plan on placing Marley catheter to gravity drainage to ____ urinary tract infection to clear completely and then have the patient continue with his Flomax and Proscar and then follow up with Urology nurse practitioner Sondra Gibbs in the next 1-2 weeks in the office to do voiding trial and get him back on intermittent self-catheterization depending on his residuals. I certainly appreciate being allowed to participate in this patient's care. CARMEN MORSE MD DR: GLENROY/vielka JOB#: [id number] / [id number]
[2017-01-06 03:00] VITALS: BP_SYST 108; BP_SYST 138; BP_DIAS 52; BP_DIAS 55
[2017-01-06 03:02] LABS: HEMOGLOBIN 10.8 g/dL (13.0-17.5); RED BLOOD COUNT 3.87 x10^6/uL (4.30-5.70); RED CELL DISTRIBUTION WIDTH 13.5 % (11.5-14.5); WHITE BLOOD COUNT 6.4 x10^3/uL (4.0-11.0)
[2017-01-06] MEDS: INSULIN DETEMIR 300 UNITS/3 ML INSULN.PEN. SQ SCH ×2 (06:08→17:00)
[2017-01-06 07:10] VITALS: BP 137/71
[2017-01-06] MEDS: INSULIN ASPART 300 UNITS/3 ML INSULN.PEN SQ SCH (08:00)
[2017-01-06] MEDS: TAMSULOSIN 0.4 MG CAP.ER.24H. PO SCH (08:06)
[2017-01-06] MEDS: METOPROLOL TART IMMED RELEASE 25 MG TABLET PO SCH ×2 (08:06→20:52)
[2017-01-06] MEDS: DULOXETINE HCL 30 MG CAPSULE.DR. PO SCH (08:06)
[2017-01-06] MEDS: CEFTRIAXONE SODIUM 1 GM in IV NORMAL SALINE 50ML 50 ML IV SCH (08:07)
--- NOTE | 2017-01-06 08:14 | PDOC ---
Provider Note Provider Note no temp, feels well, has alcaraz in now re retention- glucose better but a little low at times- urine cult pending, gram neg rods so far- will reduce ron regalado iv fluid, cont rocephin for now- endoscopy prn but no more blood seen, hb stable RADHA WILL MD Jan 06, 2017 08:14
--- NOTE | 2017-01-06 08:52 | PDOC ---
SUBJECTIVE Subjective Pt. feeling ok OBJECTIVE Objective alcaraz in place Vital Signs Vital Signs Date Time Temp Pulse Resp B/P Pulse Ox O2 Delivery O2 Flow Rate FiO2 01/06/17 08:06 74 137/71 01/06/17 03:00 96.1 76 20 108/52 95 Room Air 96.1 01/05/17 23:00 97.7 80 20 104/52 96 Room Air 97.7 01/05/17 21:00 57 94/45 01/05/17 20:00 Room Air 01/05/17 19:00 98.8 57 20 94/45 92 Room Air 98.8 01/05/17 15:00 97.8 82 19 103/56 99 Room Air 97.8 01/05/17 10:41 97.6 64 19 108/55 91 Room Air 97.6 01/05/17 10:41 112/54 I & O Intake and Output 01/06/17 07:00 Intake Total 2640 ml Output Total 4350 ml Balance -1710 ml Intake Oral 1690 ml IV Total 950 ml Output Urine Total 4350 ml PHYSICAL EXAM Physical Exam urine yellow-bhaskar in tubing ASSESSMENT/PLAN Assessment/Plan alcaraz flomax abs f/u urology UPSETTER renetta Gibbs in 1-2 weeks for voiding trial Problems: COMMENT Lab Laboratory Tests Test 01/05/17 08:56 01/05/17 11:25 01/05/17 16:19 01/05/17 20:48 Glucose (Fingerstick) 86mg/dL (70-99) 188mg/dL (70-99) 67mg/dL (70-99) 188mg/dL (70-99) Test 01/06/17 02:45 01/06/17 07:11 White Blood Count 6.4x10^3/uL (4.0-11.0) Red Blood Count 3.87x10^6/uL (4.30-5.70) Hemoglobin 10.8g/dL (13.0-17.5) Hematocrit 33.0% (39.0-53.0) Mean Corpuscular Volume 85fL (79-100) Mean Corpuscular Hemoglobin 28pg (25-35) Mean Corpuscular Hemoglobin Concent 33g/dL (31-37) Red Cell Distribution Width 13.5% (11.5-14.5) Platelet Count 203x10^3/uL (140-400) Glucose (Fingerstick) 199mg/dL (70-99) CARMEN MORSE MD Jan 06, 2017 08:52
[2017-01-06 10:12] VITALS: BP_SYST 103; BP_SYST 78; BP_DIAS 43; BP_DIAS 53
--- NOTE | 2017-01-06 11:12 | PDOC ---
Subjective: Subjective: Feeling okay. Had BM this morning, no blood that he saw. Objective: Objective: No bleeding per RN. Per PT had hypotension earlier. Vital Signs: Vital Signs Date Time Temp Pulse Resp B/P Pulse Ox O2 Delivery O2 Flow Rate FiO2 01/06/17 10:12 97.9 80 20 103/53 96 Room Air 97.9 Labs: Laboratory Tests Test 01/05/17 11:25 01/05/17 16:19 01/05/17 20:48 01/06/17 02:45 Glucose (Fingerstick) 188mg/dL 67mg/dL 188mg/dL White Blood Count 6.4x10^3/uL Red Blood Count 3.87x10^6/uL Hemoglobin 10.8g/dL Hematocrit 33.0% Mean Corpuscular Volume 85fL Mean Corpuscular Hemoglobin 28pg Mean Corpuscular Hemoglobin Concent 33g/dL Red Cell Distribution Width 13.5% Platelet Count 203x10^3/uL Test 01/06/17 07:11 Glucose (Fingerstick) 199mg/dL PE: GEN: NAD, up to chair, working w/ PT LUNGS: clear anteriorly HEART: S1S2 ABD: S/ND/NT NEURO/PSYCH: A & O 3 A/P: Blood in stool - no recurrence -heme neg in ER, Hgb stable -no previous colonoscopy per daughter UTI, urinary retention, hematuria -urology following, now w/ Marley -- Consider colonoscopy when urologic issues resolved. HAILEE AGUILAR Jan 06, 2017 11:12
[2017-01-06 14:20] VITALS: BP 107/61
[2017-01-06 19:00] VITALS: BP 144/86
[2017-01-06 23:00] VITALS: BP 122/65
[2017-01-07 03:00] VITALS: BP 125/69
[2017-01-07] MEDS: INSULIN DETEMIR 300 UNITS/3 ML INSULN.PEN. SQ SCH (05:44)
[2017-01-07 07:15] VITALS: BP 142/69
--- NOTE | 2017-01-07 07:58 | DISCH ---
DISCHARGE INSTRUCTIONS Condition on Discharge Condition on Discharge: Stable Activity After Discharge Activity Instructions for Disc: No restrictions Diet after Discharge Diet after Discharge: Diabetic No Calorie Level Follow-Up Follow up with: dr ramos 1 w RADHA WILL MD Jan 07, 2017 07:58
--- NOTE | 2017-01-07 08:02 | PDOC ---
Provider Note Provider Note [id number] RADHA WILL MD Jan 07, 2017 08:02
[2017-01-07] MEDS ORDERED: CIPROFLOXACIN HCL 250 MG TABLET PO ONE (08:15)
[2017-01-07] MEDS: TAMSULOSIN 0.4 MG CAP.ER.24H. PO SCH (08:31)
[2017-01-07 08:32] VITALS: BP 142/69
[2017-01-07] MEDS: METOPROLOL TART IMMED RELEASE 25 MG TABLET PO SCH (08:32)
[2017-01-07] MEDS: DULOXETINE HCL 30 MG CAPSULE.DR. PO SCH (08:32)
--- NOTE | 2017-01-07 09:41 | PDOC ---
Subjective: Subjective: Says DC today, denies bleeding, eating okay. Objective: Vital Signs: Vital Signs Date Time Temp Pulse Resp B/P Pulse Ox O2 Delivery O2 Flow Rate FiO2 01/07/17 08:32 78 142/69 01/07/17 08:11 Room Air 01/07/17 07:15 97.7 18 95 97.7 Labs: Laboratory Tests Test 01/06/17 11:25 01/06/17 16:35 01/06/17 20:51 01/07/17 05:43 Glucose (Fingerstick) 268mg/dL (70-99) 319mg/dL (70-99) 219mg/dL (70-99) 115mg/dL (70-99) Test 01/07/17 07:16 Glucose (Fingerstick) 130mg/dL (70-99) PE: GEN: NAD, sitting on edge of bed getting dressed LUNGS: CTAB HEART: RRR ABD: S/ND/NT NEURO/PSYCH: A & O 3 A/P: Blood in stool - no recurrence -heme neg in ER, Hgb stable -no previous colonoscopy per daughter -- Consider colonoscopy as outpt when urinary issues resolved - d/w daughter. HAILEE AGUILAR Jan 07, 2017 09:41
== END 2017-01-07 09:50 | disposition home or self-care (01) | DRG 378 ==
LOC: ER 19:43 → 5 NORTH 23:46 → OBSVTOIN 01-05 08:00
PROVIDERS: ADMIT Family Medicine; ATTEND Family Medicine
DX: K92.1 Melena (principal); N39.0 Urinary tract infection, site not specified; K80.20 Calculus of gallbladder without cholecystitis without obstruction; E11.65 Type 2 diabetes mellitus with hyperglycemia; E78.5 Hyperlipidemia, unspecified; I10 Essential (primary) hypertension; I25.10 Atherosclerotic heart disease of native coronary artery without angina pectoris; I73.9 Peripheral vascular disease, unspecified; N40.0 Benign prostatic hyperplasia without lower urinary tract symptoms; R31.9 Hematuria, unspecified; F32.9 Major depressive disorder, single episode, unspecified; F41.9 Anxiety disorder, unspecified; M19.90 Unspecified osteoarthritis, unspecified site; Z79.899 Other long term (current) drug therapy; I25.2 Old myocardial infarction; Z79.82 Long term (current) use of aspirin
CPT/HCPCS: 36415; 74176; 80048; 80053; 80076; 81001; 82274; 82947; 85027; 85610; 85730; 86850; 86900; 86901; 87086; 87186; C9113; G0378; G0379; J0696; J1815; J7030; J7040; 97110; 97530; 97535

== ENCOUNTER 2017-02-04 13:13 | Inpatient (IN) | payer MEDICARE, BC ==
[~2017-02-04] VITALS: Ht 175.3 cm; Wt 68.1 kg
[2017-02-04] MEDS ORDERED: ASPI81TA9 PO (14:42)
[2017-02-04 15:00] VITALS: BP 103/45
[2017-02-04 15:57] LABS: BASO # 0.1 x10^3/uL (0.0-0.2); BASO % 1 % (0-3); EOS % 3 % (0-3); HEMATOCRIT 34.3 % (39.0-53.0); HEMOGLOBIN 11.1 g/dL (13.0-17.5); LYMPH # 1.9 x10^3/uL (1.0-4.8); LYMPH % 22 % (24-48); MEAN CORPUSCULAR HEMOGLOBIN 28 pg (25-35); MEAN CORPUSCULAR HGB CONC 32 g/dL (31-37); MEAN CORPUSCULAR VOLUME 85 fL (79-100); MONO % 8 % (0-9); NEUT % 67 % (31-73); PLATELET COUNT 241 x10^3/uL (140-400); RED BLOOD COUNT 4.01 x10^6/uL (4.30-5.70); RED CELL DISTRIBUTION WIDTH 13.7 % (11.5-14.5); WHITE BLOOD COUNT 8.9 x10^3/uL (4.0-11.0)
[2017-02-04] MEDS ORDERED: VANCOMYCIN 1.5 GM in IV NORMAL SALINE 500ML BAG 500 ML IV ONE (16:00)
[2017-02-04 16:12] LABS: ALBUMIN 2.7 g/dL (3.4-5.0); ALBUMIN/GLOBULIN RATIO 0.5 (1.0-1.7); CALCIUM 8.8 mg/dL (8.5-10.1); CREATININE 1.1 mg/dL (0.7-1.3); GFR 64.4; POTASSIUM 3.8 mmol/L (3.5-5.1); TOTAL BILIRUBIN 0.4 mg/dL (0.2-1.0); TOTAL PROTEIN 7.7 g/dL (6.4-8.2)
[2017-02-04] MEDS: PIPERACILLIN/TAZOBACTAM 3.375 GM in IV NORMAL SALINE 50ML 50 ML IV SCH (16:16)
[2017-02-04] MEDS: INSULIN ASPART 300 UNITS/3 ML INSULN.PEN SQ SCH (17:00)
[2017-02-04 17:06] LABS: BILIRUBIN,URINE NEGATIVE (NEG); GLUCOSE,URINE >=1000 mg/dL (NEG); NITRITE,URINE NEGATIVE (NEG); PH,URINE 5.5; PROTEIN,URINE NEGATIVE (NEG-TRACE); UROBILINOGEN,URINE 0.2 mg/dL (0.2 mg/dL)
[2017-02-04 17:08] LABS: BACTERIA,URINE 0 /HPF (0-FEW); RBC,URINE 0 /HPF (0-2); WBC,URINE >40 /HPF (0-4); YEAST,URINE PRESENT /HPF
[2017-02-04] MEDS: VANCOMYCIN PER PHARMACY MC PRN (17:21)
[2017-02-04] MEDS ORDERED: INSULIN ASPART 300 UNITS/3 ML INSULN.PEN SQ ONE (17:45)
[2017-02-04] MEDS: MIDODRINE 2.5 MG TABLET PO SCH (18:03)
[2017-02-04 19:00] VITALS: BP 125/61
[2017-02-04] MEDS ORDERED: CELECOXIB 200 MG CAPSULE PO SCH (21:00)
[2017-02-04] MEDS: INSULIN DETEMIR 300 UNITS/3 ML INSULN.PEN. SQ SCH (21:18)
[2017-02-04] MEDS: CELECOXIB 200 MG CAPSULE. PO SCH (21:19)
[2017-02-04] MEDS: METOPROLOL TART IMMED RELEASE 25 MG TABLET. PO SCH (21:19)
[2017-02-04] MEDS: ATORVASTATIN CALCIUM 10 MG TABLET. PO SCH (21:19)
[2017-02-04 22:58] VITALS: BP 131/70
[2017-02-05] MEDS: PIPERACILLIN/TAZOBACTAM 3.375 GM in IV NORMAL SALINE 50ML 50 ML IV SCH ×4 (00:22→23:47)
[2017-02-05 03:00] VITALS: BP 124/71
[2017-02-05] MEDS: DEXTROSE 50% 25 GM / 50ML DISP.SYRIN. IV PRN (04:58)
[2017-02-05] MEDS ORDERED: CEFAZOLIN 2GM PREMIX 50 ML IV PRN (06:00)
[2017-02-05 06:48] VITALS: BP 115/66
[2017-02-05] MEDS: MIDODRINE 2.5 MG TABLET PO SCH ×3 (06:48→17:01)
[2017-02-05] MEDS: INSULIN ASPART 300 UNITS/3 ML INSULN.PEN SQ SCH ×3 (08:00→17:07)
[2017-02-05] MEDS: TAMSULOSIN 0.4 MG CAP.ER.24H. PO SCH (08:30)
[2017-02-05] MEDS: GLIMEPIRIDE 2 MG TABLET. PO SCH (08:30)
[2017-02-05] MEDS: ASPIRIN ENTERIC COATED 81 MG TABLET.DR. PO SCH (08:30)
[2017-02-05] MEDS: METOPROLOL TART IMMED RELEASE 25 MG TABLET. PO SCH ×2 (08:30→20:54)
[2017-02-05] MEDS: CELECOXIB 200 MG CAPSULE. PO SCH ×2 (08:30→20:55)
[2017-02-05] MEDS: DULOXETINE HCL 30 MG CAPSULE.DR. PO SCH (08:30)
--- NOTE | 2017-02-05 08:36 | PDOC ---
Infectious Disease Note ROS ROS GEN: Denies fevers, chills, sweats HEENT: Denies blurred vision, sore throat CV: Denies chest pain RESP: Denies shortness of air, cough GI: Denies n/v/d NEURO: Denies confusion, dizziness MSK: Denies weakness, joint pain/swelling Vital Sign Vital Signs Vital Signs Date Time Temp Pulse Resp B/P Pulse Ox O2 Delivery O2 Flow Rate FiO2 02/05/17 06:48 96.3 69 16 115/66 98 Room Air 96.3 Physical Exam PHYSICAL EXAM GENERAL: NAD, Alert HEENT: PERRL, OC/OP NECK: Supple, no JVD, no LN LUNGS: Clear HEART: S1S2, no gallop, no murmur ABD: Soft, NT, no organomegaly, no rebound EXT: No edema, no cyanosis TYPESETTING MACHINE TENDER: Alert, oriented x 3, no focal neurologic deficit SKIN: No rash IV: ok Labs Lab Laboratory Tests Test 02/04/17 15:45 02/04/17 15:54 02/04/17 16:07 02/05/17 04:53 White Blood Count 8.9x10^3/uL (4.0-11.0) Red Blood Count 4.01x10^6/uL (4.30-5.70) Hemoglobin 11.1g/dL (13.0-17.5) Hematocrit 34.3% (39.0-53.0) Mean Corpuscular Volume 85fL (79-100) Mean Corpuscular Hemoglobin 28pg (25-35) Mean Corpuscular Hemoglobin Concent 32g/dL (31-37) Red Cell Distribution Width 13.7% (11.5-14.5) Platelet Count 241x10^3/uL (140-400) Neutrophils (%) (Auto) 67% (31-73) Lymphocytes (%) (Auto) 22% (24-48) Monocytes (%) (Auto) 8% (0-9) Eosinophils (%) (Auto) 3% (0-3) Basophils (%) (Auto) 1% (0-3) Neutrophils # (Auto) 6.0x10^3uL (1.8-7.7) Lymphocytes # (Auto) 1.9x10^3/uL (1.0-4.8) Monocytes # (Auto) 0.7x10^3/uL (0.0-1.1) Eosinophils # (Auto) 0.2x10^3/uL (0.0-0.7) Basophils # (Auto) 0.1x10^3/uL (0.0-0.2) Erythrocyte Sedimentation Rate 83 (0-15) Sodium Level 135mmol/L (136-145) Potassium Level 3.8mmol/L (3.5-5.1) Chloride Level 97mmol/L (98-107) Carbon Dioxide Level 30mmol/L (21-32) Anion Gap 8 (6-14) Blood Urea Nitrogen 17mg/dL (8-26) Creatinine 1.1mg/dL (0.7-1.3) Estimated GFR (Cockcroft-Gault) 64.4 BUN/Creatinine Ratio 15 (6-20) Glucose Level 426mg/dL (70-99) Calcium Level 8.8mg/dL (8.5-10.1) Total Bilirubin 0.4mg/dL (0.2-1.0) Aspartate Amino Transf (AST/SGOT) 10U/L (15-37) Alanine Aminotransferase (ALT/SGPT) 12U/L (16-63) Alkaline Phosphatase 138U/L (46-116) Total Protein 7.7g/dL (6.4-8.2) Albumin 2.7g/dL (3.4-5.0) Albumin/Globulin Ratio 0.5 (1.0-1.7) Urine Color Yellow Urine Clarity Clear Urine pH 5.5 Urine Specific [place] >=1.030 Urine Protein Negativemg/dL (NEG-TRACE) Urine Glucose (UA) >=1000mg/dL (NEG) Urine Ketones (Stick) Negativemg/dL (NEG) Urine Blood Negative (NEG) Urine Nitrite Negative (NEG) Urine Bilirubin Negative (NEG) Urine Urobilinogen Dipstick 0.2mg/dL (0.2 mg/dL) Urine Leukocyte Esterase Small (NEG) Urine RBC 0/HPF (0-2) Urine WBC >40/HPF (0-4) Urine Bacteria 0/HPF (0-FEW) Urine Mucus Mod/LPF Urine Yeast Present/HPF Glucose (Fingerstick) 413mg/dL (70-99) 59mg/dL (70-99) Test 02/05/17 05:34 4/6/17 07:24 Glucose (Fingerstick) 161mg/dL (70-99) 151mg/dL (70-99) Objective Assessment Right plantar foot ulcer DM PAD Tinea Plan Plan of Care Cont Vanc/Zosyn Add Fluconazole Right Foot Xray Needs Vascular eval F/u labs/cults Thank you D/w Dr. Prater # [id number] TOYA MAI MD Feb 05, 2017 08:36
[2017-02-05] MEDS: FLUCONAZOLE 100 MG TABLET. PO SCH (09:19)
--- NOTE | 2017-02-05 10:31 | PDOC ---
PROGRESS NOTES Subjective Subjective Pt awake and alert. Denies pain. States he is eating and drinking well with good output. Objective Objective Vital Signs Date Time Temp Pulse Resp B/P Pulse Ox O2 Delivery O2 Flow Rate FiO2 02/05/17 08:30 69 115/66 02/05/17 06:48 96.3 16 98 Room Air 96.3 Intake and Output 02/05/17 07:00 Intake Total 440 ml Output Total 1425 ml Balance -985 ml Intake Oral 390 ml IV Total 50 ml Output Urine Total 1425 ml Plan Plan of Care 1. Right plantar foot ulcer with underlying DM and PAD -ID consulting -cxs pending -Right foot x-ray series pending -Abx: Vanc and Zosyn -Antifungal: Diflucan -Vascular consulted Comment Review of Relevant I have reviewed the following items dayron (where applicable) has been applied. Labs Laboratory Tests Test 02/04/17 15:45 02/04/17 15:54 02/04/17 16:07 02/05/17 04:53 White Blood Count 8.9x10^3/uL (4.0-11.0) Red Blood Count 4.01x10^6/uL (4.30-5.70) Hemoglobin 11.1g/dL (13.0-17.5) Hematocrit 34.3% (39.0-53.0) Mean Corpuscular Volume 85fL (79-100) Mean Corpuscular Hemoglobin 28pg (25-35) Mean Corpuscular Hemoglobin Concent 32g/dL (31-37) Red Cell Distribution Width 13.7% (11.5-14.5) Platelet Count 241x10^3/uL (140-400) Neutrophils (%) (Auto) 67% (31-73) Lymphocytes (%) (Auto) 22% (24-48) Monocytes (%) (Auto) 8% (0-9) Eosinophils (%) (Auto) 3% (0-3) Basophils (%) (Auto) 1% (0-3) Neutrophils # (Auto) 6.0x10^3uL (1.8-7.7) Lymphocytes # (Auto) 1.9x10^3/uL (1.0-4.8) Monocytes # (Auto) 0.7x10^3/uL (0.0-1.1) Eosinophils # (Auto) 0.2x10^3/uL (0.0-0.7) Basophils # (Auto) 0.1x10^3/uL (0.0-0.2) Erythrocyte Sedimentation Rate 83 (0-15) Sodium Level 135mmol/L (136-145) Potassium Level 3.8mmol/L (3.5-5.1) Chloride Level 97mmol/L (98-107) Carbon Dioxide Level 30mmol/L (21-32) Anion Gap 8 (6-14) Blood Urea Nitrogen 17mg/dL (8-26) Creatinine 1.1mg/dL (0.7-1.3) Estimated GFR (Cockcroft-Gault) 64.4 BUN/Creatinine Ratio 15 (6-20) Glucose Level 426mg/dL (70-99) Calcium Level 8.8mg/dL (8.5-10.1) Total Bilirubin 0.4mg/dL (0.2-1.0) Aspartate Amino Transf (AST/SGOT) 10U/L (15-37) Alanine Aminotransferase (ALT/SGPT) 12U/L (16-63) Alkaline Phosphatase 138U/L (46-116) Total Protein 7.7g/dL (6.4-8.2) Albumin 2.7g/dL (3.4-5.0) Albumin/Globulin Ratio 0.5 (1.0-1.7) Urine Color Yellow Urine Clarity Clear Urine pH 5.5 Urine Specific [place] >=1.030 Urine Protein Negativemg/dL (NEG-TRACE) Urine Glucose (UA) >=1000mg/dL (NEG) Urine Ketones (Stick) Negativemg/dL (NEG) Urine Blood Negative (NEG) Urine Nitrite Negative (NEG) Urine Bilirubin Negative (NEG) Urine Urobilinogen Dipstick 0.2mg/dL (0.2 mg/dL) Urine Leukocyte Esterase Small (NEG) Urine RBC 0/HPF (0-2) Urine WBC >40/HPF (0-4) Urine Bacteria 0/HPF (0-FEW) Urine Mucus Mod/LPF Urine Yeast Present/HPF Glucose (Fingerstick) 413mg/dL (70-99) 59mg/dL (70-99) Test 02/05/17 05:34 02/05/17 07:24 Glucose (Fingerstick) 161mg/dL (70-99) 151mg/dL (70-99) Laboratory Tests Test 02/04/17 15:45 02/04/17 15:54 02/04/17 16:07 02/05/17 04:53 White Blood Count 8.9x10^3/uL (4.0-11.0) Red Blood Count 4.01x10^6/uL (4.30-5.70) Hemoglobin 11.1g/dL (13.0-17.5) Hematocrit 34.3% (39.0-53.0) Mean Corpuscular Volume 85fL (79-100) Mean Corpuscular Hemoglobin 28pg (25-35) Mean Corpuscular Hemoglobin Concent 32g/dL (31-37) Red Cell Distribution Width 13.7% (11.5-14.5) Platelet Count 241x10^3/uL (140-400) Neutrophils (%) (Auto) 67% (31-73) Lymphocytes (%) (Auto) 22% (24-48) Monocytes (%) (Auto) 8% (0-9) Eosinophils (%) (Auto) 3% (0-3) Basophils (%) (Auto) 1% (0-3) Neutrophils # (Auto) 6.0x10^3uL (1.8-7.7) Lymphocytes # (Auto) 1.9x10^3/uL (1.0-4.8) Monocytes # (Auto) 0.7x10^3/uL (0.0-1.1) Eosinophils # (Auto) 0.2x10^3/uL (0.0-0.7) Basophils # (Auto) 0.1x10^3/uL (0.0-0.2) Erythrocyte Sedimentation Rate 83 (0-15) Sodium Level 135mmol/L (136-145) Potassium Level 3.8mmol/L (3.5-5.1) Chloride Level 97mmol/L (98-107) Carbon Dioxide Level 30mmol/L (21-32) Anion Gap 8 (6-14) Blood Urea Nitrogen 17mg/dL (8-26) Creatinine 1.1mg/dL (0.7-1.3) Estimated GFR (Cockcroft-Gault) 64.4 BUN/Creatinine Ratio 15 (6-20) Glucose Level 426mg/dL (70-99) Calcium Level 8.8mg/dL (8.5-10.1) Total Bilirubin 0.4mg/dL (0.2-1.0) Aspartate Amino Transf (AST/SGOT) 10U/L (15-37) Alanine Aminotransferase (ALT/SGPT) 12U/L (16-63) Alkaline Phosphatase 138U/L (46-116) Total Protein 7.7g/dL (6.4-8.2) Albumin 2.7g/dL (3.4-5.0) Albumin/Globulin Ratio 0.5 (1.0-1.7) Urine Color Yellow Urine Clarity Clear Urine pH 5.5 Urine Specific [place] >=1.030 Urine Protein Negativemg/dL (NEG-TRACE) Urine Glucose (UA) >=1000mg/dL (NEG) Urine Ketones (Stick) Negativemg/dL (NEG) Urine Blood Negative (NEG) Urine Nitrite Negative (NEG) Urine Bilirubin Negative (NEG) Urine Urobilinogen Dipstick 0.2mg/dL (0.2 mg/dL) Urine Leukocyte Esterase Small (NEG) Urine RBC 0/HPF (0-2) Urine WBC >40/HPF (0-4) Urine Bacteria 0/HPF (0-FEW) Urine Mucus Mod/LPF Urine Yeast Present/HPF Glucose (Fingerstick) 413mg/dL (70-99) 59mg/dL (70-99) Test 02/05/17 05:34 02/05/17 07:24 Glucose (Fingerstick) 161mg/dL (70-99) 151mg/dL (70-99) Medications Current Medications Insulin Aspart (Novolog) 0-5 UNITS TIDWMEALS SQ ; Start 02/04/17 at 17:00 Dextrose (Dextrose 50%-Water Syringe) 12.5 gm PRN Q15MIN PRN IV SEE COMMENTS Last administered on 02/05/17 04:58; Start 02/04/17 at 15:15 Vancomycin HCl 1 each 1 each PRN DAILY PRN MC SEE COMMENTS Last administered on 02/04/17 17:21; Start 02/04/17 at 15:15 Piperacillin Sod/ Tazobactam Sod/ Sodium Chloride (Zosyn/Iv Sodium Chloride 0.9 % 50ml) 50 ml @ 100 mls/hr Q8H IV Last administered on 02/05/17 08:29; Start 02/04/17 at 16:00 Aspirin (Ecotrin) 81 mg DAILY PO Last administered on 02/05/17 08:30; Start 02/05/17 at 09:00 Atorvastatin Calcium (Lipitor) 10 mg QHS PO Last administered on 02/04/17 21:19 ; Start 02/04/17 at 21:00 Celecoxib (Celebrex) 200 mg BID PO ; Start 02/04/17 at 21:00; Stop 02/04/17 at 21: 00; Status DC Metoprolol Tartrate (Lopressor) 25 mg BID PO Last administered on 02/05/17 08: 30; Start 02/04/17 at 21:00 Midodrine (Proamatine) 2.5 mg [id number] PO Last administered on 02/05/17 06:48; Start 02/04/17 at 18:00 Tamsulosin HCl (Flomax) 0.4 mg DAILY PO Last administered on 02/05/17 08:30; Start 02/05/17 at 09:00 Duloxetine HCl (Cymbalta) 60 mg DAILY PO Last administered on 02/05/17 08:30; Start 02/05/17 at 09:00 Glimepiride (Amaryl) 4 mg DAILY PO Last administered on 02/05/17 08:30; Start 02/05/17 at 09:00 Insulin Detemir 20 units 20 units QHS SQ Last administered on 02/04/17 21:18; Start 02/04/17 at 21:00 Vancomycin HCl/ Sodium Chloride (Iv Sodium Chloride 0.9% 500ml Bag) 500 ml @ 250 mls/hr 1X ONCE IV Last administered on 02/04/17 17:14; Start 02/04/17 at 16 :00; Stop 02/04/17 at 17:59; Status DC Celecoxib 200 mg 200 mg BID PO Last administered on 02/05/17 08:30; Start at 21:00 Vancomycin HCl/ Sodium Chloride (Iv Sodium Chloride 0.9% 250ml) 250 ml @ 250 mls/hr Q24H IV ; Start 02/05/17 at 17:00 Vancomycin HCl 1 each 1X ONCE MC ; Start 02/05/17 at 16:30; Stop 02/05/17 at 16: 31 Insulin Aspart 7 units 7 units 1X ONCE SQ Last administered on 02/04/17 18:07 ; Start 02/04/17 at 17:45; Stop 02/04/17 at 17:46; Status DC Cefazolin Sodium/ Dextrose (Ancef 2gm Premix) 50 ml @ 100 mls/hr 1X PREOP PRN IV PRIOR TO PROCEDURE; Start 02/05/17 at 06:00; Stop 02/05/17 at 18:00; Status Cancel Fluconazole (Diflucan) 100 mg DAILY PO Last administered on 02/05/17 09:19; Start 02/05/17 at 09:00 Active Scripts Active Atorvastatin Calcium 10 Mg Tablet 10 Mg PO QHS Metoprolol Tartrate 25 Mg Tablet 25 Mg PO BID Midodrine Hcl 2.5 Mg Tablet 2.5 Mg PO [id number] Reported Aspirin Ec (Aspirin) 81 Mg Tablet. 1 Tab PO DAILY Lantus (Insulin Glargine,Hum.rec.anlog) 100 Unit/1 Ml Vial 20 Unit SQ HS Glimepiride 4 Mg Tablet 4 Mg PO DAILY Celebrex (Celecoxib) 200 Mg Capsule 200 Mg PO BID 30 Days Duloxetine Hcl 60 Mg Capsule. 60 Mg PO DAILY Tamsulosin Hcl 0.4 Mg Cap.er.24h 0.4 Mg PO DAILY Vitals/I & O Vital Sign - Last 24 Hours 02/04/17 02/04/17 02/04/17 02/04/17 15:00 16:25 18:03 19:00 Temp 96.6 98.8 96.6 98.8 Pulse 47 47 95 Resp 14 18 B/P 103/45 103/45 125/61 Pulse Ox 95 98 O2 Delivery Room Air Room Air Room Air 02/04/17 02/04/17 02/04/17 02/05/17 20:00 21:19 22:58 03:00 Temp 98.1 98.6 98.1 98.6 Pulse 89 85 72 Resp 18 18 B/P 119/60 131/70 124/71 Pulse Ox 98 98 O2 Delivery Room Air Room Air Room Air 02/05/17 02/05/17 02/05/17 06:48 06:48 08:30 Temp 96.3 96.3 Pulse 69 69 69 Resp 16 B/P 115/66 115/66 115/66 Pulse Ox 98 O2 Delivery Room Air Intake and Output 02/04/17 02/04/17 02/05/17 15:00 23:00 07:00 Intake Total 390 ml 50 ml Output Total 300 ml 1125 ml Balance 90 ml -1075 ml LUISITO RUSSELL MD Feb 05, 2017 10:31
[2017-02-05 10:40] VITALS: BP 114/76
--- NOTE | 2017-02-05 11:47 | PDOC ---
Provider Note Provider Note Vascular Consult dictated Imp: Necrotic ulcers plantar rt. foot Plan:Debride in OR tomorrow afternoon BENITO MORAES MD Feb 05, 2017 11:47
[2017-02-05 14:35] VITALS: BP 113/66
--- NOTE | 2017-02-05 15:12 | RAD ---
Right foot radiographs History: Ulcer on the bottom of the foot. Comparison: None. Findings: AP and lateral views of the right foot. Small-moderate plantar calcaneal enthesophyte is seen. Arterial calcifications are present. No definite acute fracture or dislocation is identified given limitation of lack of third view. Appearance of the toes raises possibility of hammertoe deformities. No osteolysis to suggest radiographic evidence of osteomyelitis is identified. No radiopaque foreign body is seen. Impression: No definite evidence of osteomyelitis, although radiographic evidence of such would be a relatively late finding.
--- NOTE | 2017-02-05 16:43 | CONS ---
DATE OF CONSULTATION: 02/05/2017 LOCATION: The patient is in room 506. REQUESTING PHYSICIAN: Dr. Prater. REASON FOR CONSULTATION: Diabetic foot ulcer. HISTORY OF PRESENT ILLNESS: The patient is a very pleasant 81-year-old gentleman with, he states, a 4-year history of diabetes that he has known of. He has not changed any shoes recently, but presented to Dr. Prater's office on the secondary to right foot pain. He states this developed over several days. He has not been on any antimicrobials, but on evaluation, he was found to have a right plantar foot ulcer. He has not had any fevers, chills or sweats. No headaches, sore throat, cough or chest pain. Has occasional diarrhea. He has had chronic complications with urinary retention and was admitted with pyelonephritis back in December. Cultures at that time had grown E. coli, was intermediate to cefazolin, but otherwise sensitive. Currently, the patient is sitting upright in bed and eating breakfast. PAST MEDICAL HISTORY: Again is positive for E. coli, UTI, history of BPH, history of pyelonephritis, history of diabetes, urinary retention, hyperlipidemia, peripheral arterial and peripheral vascular disease. History of non-STEMI. PAST SURGICAL HISTORY: Positive for tonsillectomy as well as eye surgery. REVIEW OF SYSTEMS: Otherwise negative except for mentioned above. ALLERGIES: No known drug allergies. SOCIAL HISTORY: Does have a distant history of smoking, but quit 20 years ago. No alcohol. Good family support. FAMILY HISTORY: Positive for congestive heart failure, Parkinson's disease as well as dementia. CURRENT MEDICATIONS: Included vancomycin, Zosyn, Lipitor, Ecotrin, Celebrex, Cymbalta, Amaryl, insulin, ProAmatine, metoprolol. Other meds are available, have been reviewed in the chart. PHYSICAL EXAMINATION: VITAL SIGNS: He has been afebrile since his admission, temperature is 96.3, pulse 69, respirations 16, blood pressure 115/66, satting 98% on room air. CONSTITUTIONAL: He is a pleasant gentleman. He is cooperative, in no acute distress. He is sitting upright in bed. HEENT: Pupils equal and reactive. He is normocephalic. NECK: Supple, no JVD. LUNGS: Clear to auscultation. HEART: S1, S2. ABDOMEN: Soft, nontender, nondistended, positive bowel sounds. Marley is in place. EXTREMITIES: Thin, no clubbing or cyanosis. No gross edema. SKIN: Warm to touch without signs of rash. He has a plantar wound that is scabbed over the first and second metatarsal heads. There is no gross purulence or surrounding erythema. It does not appear to be too deep, but he does have decreased pulses. He has some tenia on his feet NEUROLOGIC: He moves extremities without complications. Affect is appropriate. LABORATORY DATA: White count 8.9, hemoglobin 11.1, platelets of 241, neutrophils 67, lymphs are 22 with sed rate of 83. Glucose this morning was 151. It was 426 at presentation. Creatinine 1.1 with essentially normal liver function study tests. Urinalysis is clean. There are no images. IMPRESSION: 1. Right plantar foot ulcer. 2. Diabetes. 3. Peripheral arterial disease. He has had an ultrasound performed on 09/12/2016, which showed occlusion of the posterior tibial artery and stenosis in the anterior tibial artery with occlusion of the right dorsalis pedis. 4. Tenia. RECOMMENDATIONS: For now, continue the vancomycin and Zosyn. We will add fluconazole p.o. Obtain a right foot x-ray. Consult Vascular Surgery. Follow up on labs and cultures. This was discussed with Dr. Prater. Thank you for allowing me to participate in this patient's care. If you have any questions, please do not hesitate to contact me. TOYA MAI MD DR: ARELIS/vielka JOB#: [id number] / [id number]
[2017-02-05] MEDS ORDERED: VANCOMYCIN 1 GM in IV NORMAL SALINE 250ML 250 ML IV SCH (17:00)
[2017-02-05] MEDS: VANCOMYCIN PER PHARMACY MC PRN (17:41)
[2017-02-05] MEDS: VANCOMYCIN 1 GM in IV NORMAL SALINE 250ML 250 ML IV SCH (17:58)
[2017-02-05 19:00] VITALS: BP 118/40
[2017-02-05] MEDS: ATORVASTATIN CALCIUM 10 MG TABLET. PO SCH (20:54)
[2017-02-05] MEDS: INSULIN DETEMIR 300 UNITS/3 ML INSULN.PEN. SQ SCH (20:59)
[2017-02-05 23:00] VITALS: BP 121/76
[2017-02-06] VITALS (10 sets, daily range): BP systolic 99–134; BP diastolic 51–73
--- NOTE | 2017-02-06 01:46 | CONS ---
DATE OF CONSULTATION: 02/05/2017 REASON FOR CONSULTATION: Ulcers, right foot. HISTORY OF PRESENT ILLNESS: This is an 81-year-old diabetic male who states that he developed some ulcers in his right foot this past week when he was walking in some shoes and left them ____ apparently. He has never had any arterial interventions or any types of vascular procedures. PAST MEDICAL HISTORY: He is a chronic diabetic. MEDICATIONS: Include insulin and aspirin and he is also on an antibiotic at the present time. ALLERGIES: He has no allergies. REVIEW OF SYSTEMS: Again, no history of stroke. No history of claudication or coronary artery disease. I do not think he is a smoker either. PHYSICAL EXAMINATION: GENERAL: Pleasant male in no acute distress. NECK: 2+ carotids, 2+ radial pulses. CARDIOVASCULAR: Heart rate is regular. LUNGS: Nonlabored respirations. ABDOMEN: Flat, soft, nontender. GENITOURINARY: He has got a Marley catheter in place. EXTREMITIES: He has got strong femoral pulses, strong popliteal pulses and dorsalis pedis pulses are also palpable bilaterally. No problems or sores on the left foot. On the right foot, he has got two angry looking necrotic ulcers about nickel size on the plantar aspect of the right forefoot. IMPRESSION: Necrotic pressure ulcers, plantar right foot. PLAN: Debridement in the operating room tomorrow. He should have enough arterial circulation to heal. We will order a half shoe. If it does involve the bone prominence, we may eventually wind up with a transmetatarsal amputation, but hopefully that would not be necessary. Again, we will debride him tomorrow in the operating room. Thanks for allowing us to see him. BENITO MORAES MD DR: MAGED/vielka JOB#: [id number] / [id number]
[2017-02-06] MEDS: VANCOMYCIN 1 GM in IV NORMAL SALINE 250ML 250 ML IV SCH ×2 (05:53→18:41)
[2017-02-06 06:37] LABS: CALCIUM 8.3 mg/dL (8.5-10.1); CREATININE 1.1 mg/dL (0.7-1.3); GFR 64.4; POTASSIUM 4.1 mmol/L (3.5-5.1)
[2017-02-06] MEDS ORDERED: HYDROMORPHONE 2 MG/ML VIAL. IV PRN (07:00)
[2017-02-06] MEDS ORDERED: PROCHLORPERAZINE 10 MG/2 ML VIAL. IV PRN (07:00)
[2017-02-06] MEDS ORDERED: IV RINGERS,LACTATED 1000ML 1,000 ML IV SCH (07:00)
[2017-02-06] MEDS ORDERED: LIDOCAINE 1% 1 ML SYRINGE. ID PRN (07:00)
[2017-02-06] MEDS ORDERED: MORPHINE SULFATE 2 MG/ML DISP.SYRIN. IV PRN (07:00)
[2017-02-06] MEDS ORDERED: LIDOCAINE 1% PF 30 ML VIAL. ONE (07:15)
[2017-02-06] MEDS ORDERED: silver sulfADIAZINE 1% CREAM 25GM TUBE. TP ONE (07:15)
[2017-02-06] MEDS: INSULIN ASPART 300 UNITS/3 ML INSULN.PEN SQ SCH ×3 (08:00→17:08)
[2017-02-06] MEDS: PIPERACILLIN/TAZOBACTAM 3.375 GM in IV NORMAL SALINE 50ML 50 ML IV SCH ×3 (08:08→23:43)
[2017-02-06] MEDS ORDERED: PROPOFOL 20 ML IV ONE (08:32)
[2017-02-06] MEDS ORDERED: FENTANYL PF 100 MCG/2 ML VIAL. ONE (08:32)
[2017-02-06] MEDS ORDERED: ONDANSETRON PF 4 MG/2 ML VIAL. ONE (08:32)
[2017-02-06] MEDS ORDERED: LIDOCAINE 2% 100 MG/5 ML SYRINGE. ONE (08:32)
--- NOTE | 2017-02-06 08:40 | PDOC ---
GENERAL General: vss and afebrile. sugars good. plain films foot without obvious osteomyelitis. for debridement of foot today. continue antibiotics. exam stable. Problems: VITAL SIGNS Vital Signs: Vital Signs Date Time Temp Pulse Resp B/P Pulse Ox O2 Delivery O2 Flow Rate FiO2 02/06/17 08:00 97.5 74 15 134/73 97 Room Air 97.5 I & O I & O Intake and Output 02/06/17 07:00 Intake Total 1420 ml Output Total 3000 ml Balance -1580 ml Intake Oral 1320 ml IV Total 100 ml Output Urine Total 3000 ml # Bowel Movements 4 ALLERGIES Allergies: Allergies Coded Allergies Type Severity Reaction Last Updated Verified No Known Drug Allergies 05/31/15 No MEDS Medications: Current Medications Medications (Trade) Dose Ordered Sig/Chay Start Time Stop Time Status Last Admin Dose Admin Aspirin (Ecotrin) 81 mg DAILY 02/05/17 09:00 02/05/17 08:30 81 MG Atorvastatin Calcium (Lipitor) 10 mg QHS 02/04/17 21:00 02/05/17 20:54 10 MG Cefazolin Sodium/ Dextrose (Ancef 2gm Premix) 50 ml @ 100 mls/hr 1X PREOP PRN 02/05/17 06:00 02/05/17 18:00 Cancel Celecoxib (Celebrex) 200 mg BID 02/04/17 21:00 02/05/17 20:55 200 MG Dextrose (Dextrose 50%-Water Syringe) 12.5 gm PRN Q15MIN PRN 02/04/17 15:15 02/05/17 04:58 12.5 GM Duloxetine HCl (Cymbalta) 60 mg DAILY 02/05/17 09:00 02/05/17 08:30 60 MG Fentanyl Citrate (Fentanyl 2ml Vial) 100 mcg STK-MED ONCE 02/06/17 08:32 02/06/17 08:33 DC Fluconazole (Diflucan) 100 mg DAILY 02/05/17 09:00 02/05/17 09:19 100 MG Glimepiride (Amaryl) 4 mg DAILY 02/05/17 09:00 02/05/17 08:30 4 MG Hydromorphone HCl (Dilaudid) 0.5 mg PRN Q10MIN PRN 02/06/17 07:00 02/07/17 06:59 Insulin Aspart (Novolog) 0-5 UNITS TIDWMEALS 02/04/17 17:00 02/05/17 17:07 2 UNITS Insulin Aspart 7 units 7 units 1X ONCE 02/04/17 17:45 02/04/17 17:46 DC 02/04/17 18:07 7 UNITS Insulin Detemir 20 units 20 units QHS 02/04/17 21:00 02/05/17 20:59 10 UNITS Lactated Ringer's (Iv Lactated Ringers) 1,000 ml @ 0 mls/hr Q0M 02/06/17 07:00 02/06/17 18:59 Lidocaine HCl (Lidocaine HCl 2% Abboject) 100 mg STK-MED ONCE 02/06/17 08:32 02/06/17 08:33 DC Lidocaine HCl 30 ml 30 ml STK-MED ONCE 02/06/17 07:15 02/06/17 07:16 DC Metoprolol Tartrate (Lopressor) 25 mg BID 02/04/17 21:00 02/05/17 20:54 25 MG Midodrine (Proamatine) 2.5 mg [id number] 02/04/17 18:00 02/05/17 15:11 DC 02/05/17 12:14 2.5 MG Midodrine 2.5 mg 2.5 mg TIDWMEALS 02/05/17 17:00 02/05/17 17:01 2.5 MG Morphine Sulfate 1 mg 1 mg PRN Q10MIN PRN 02/06/17 07:00 02/07/17 06:59 Ondansetron HCl (Zofran) 4 mg STK-MED ONCE 02/06/17 08:32 02/06/17 08:33 DC Piperacillin Sod/ Tazobactam Sod/ Sodium Chloride (Zosyn/Iv Sodium Chloride 0.9% 50ml) 50 ml @ 100 mls/hr Q8H 02/04/17 16:00 02/06/17 08:08 100 MLS/HR Prochlorperazine Edisylate (Compazine) 5 mg PACU PRN PRN 02/06/17 07:00 02/07/17 06:59 Propofol (Diprivan) 20 ml @ As Directed STK-MED ONCE 02/06/17 08:32 02/06/17 08:33 DC Silver Sulfadiazine (Silvadene) 25 kimberly STK-MED ONCE 02/06/17 07:15 02/06/17 07:16 DC Tamsulosin HCl (Flomax) 0.4 mg DAILY 02/05/17 09:00 02/05/17 08:30 0.4 MG Vancomycin HCl 1 each 1X ONCE 02/07/17 05:30 02/07/17 05:31 Vancomycin HCl 1 each 1 each PRN DAILY PRN 02/04/17 15:15 02/05/17 17:41 1 EACH Vancomycin HCl/ Sodium Chloride (Iv Sodium Chloride 0.9% 250ml) 250 ml @ 250 mls/hr Q12H 02/05/17 18:00 02/06/17 05:53 250 MLS/HR Vancomycin HCl/ Sodium Chloride (Iv Sodium Chloride 0.9% 500ml Bag) 500 ml @ 250 mls/hr 1X ONCE 02/04/17 16:00 02/04/17 17:59 DC 02/04/17 17:14 250 MLS/HR LAB Lab: Laboratory Tests Test 02/05/17 11:07 02/05/17 16:24 02/05/17 16:30 02/05/17 20:28 Glucose (Fingerstick) 209mg/dL (70-99) 192mg/dL (70-99) 271mg/dL (70-99) Vancomycin Level Trough 7.0mcg/mL (10.0-20.0) Vancomycin Last Dose Date 02/05/17 Vancomycin Last Dose Time 0500 Test 02/06/17 04:29 02/06/17 05:45 02/06/17 07:12 Glucose (Fingerstick) 101mg/dL (70-99) 96mg/dL (70-99) Sodium Level 142mmol/L (136-145) Potassium Level 4.1mmol/L (3.5-5.1) Chloride Level 106mmol/L (98-107) Carbon Dioxide Level 31mmol/L (21-32) Anion Gap 5 (6-14) Blood Urea Nitrogen 23mg/dL (8-26) Creatinine 1.1mg/dL (0.7-1.3) Estimated GFR (Cockcroft-Gault) 64.4 Glucose Level 65mg/dL (70-99) Calcium Level 8.3mg/dL (8.5-10.1) Nutrition Consultation Dietary Evaluation: Recommendations by RD: Increase Calorie Intake, Protein supplementation Comments: continue boost glucose control tid REC MVI, vit c for wound healing Expected Outcomes/Goals: to meet > 75% est nutr needs Malnutrition Findings: Reduced Division Controller Strength: N/A Weight Status: Appropriate Fluid Accumulation (N/A): N/A LUISITO RUSSELL MD Feb 06, 2017 08:40
[2017-02-06] MEDS: METOPROLOL TART IMMED RELEASE 25 MG TABLET. PO SCH ×2 (08:45→21:32)
[2017-02-06] MEDS ORDERED: EPHEDRINE SULFATE 50 MG/ML VIAL. ONE (10:40)
--- NOTE | 2017-02-06 10:41 | PDOC ---
Infectious Disease Note ROS ROS GEN: Denies fevers, chills, sweats HEENT: Denies blurred vision, sore throat CV: Denies chest pain RESP: Denies shortness of air, cough GI: Denies n/v/d NEURO: Denies confusion, dizziness MSK: Denies weakness, joint pain/swelling Vital Sign Vital Signs Vital Signs Date Time Temp Pulse Resp B/P Pulse Ox O2 Delivery O2 Flow Rate FiO2 02/06/17 10:03 97.5 70 18 145/71 94 Room Air 97.5 Physical Exam PHYSICAL EXAM GENERAL: NAD, Alert HEENT: PERRL, OC/OP NECK: Supple, no JVD, no LN LUNGS: Clear HEART: S1S2, no gallop, no murmur ABD: Soft, NT, no organomegaly, no rebound EXT: No edema, no cyanosis BASS FISHER: Alert, oriented x 3, no focal neurologic deficit SKIN: No rash IV: ok Labs Lab Laboratory Tests Test 02/05/17 11:07 02/05/17 16:24 02/05/17 16:30 02/05/17 20:28 Glucose (Fingerstick) 209mg/dL (70-99) 192mg/dL (70-99) 271mg/dL (70-99) Vancomycin Level Trough 7.0mcg/mL (10.0-20.0) Vancomycin Last Dose Date 02/05/17 Vancomycin Last Dose Time 0500 Test 02/06/17 04:29 02/06/17 05:45 02/06/17 07:12 Glucose (Fingerstick) 101mg/dL (70-99) 96mg/dL (70-99) Sodium Level 142mmol/L (136-145) Potassium Level 4.1mmol/L (3.5-5.1) Chloride Level 106mmol/L (98-107) Carbon Dioxide Level 31mmol/L (21-32) Anion Gap 5 (6-14) Blood Urea Nitrogen 23mg/dL (8-26) Creatinine 1.1mg/dL (0.7-1.3) Estimated GFR (Cockcroft-Gault) 64.4 Glucose Level 65mg/dL (70-99) Calcium Level 8.3mg/dL (8.5-10.1) Objective Assessment Right plantar foot ulcer DM PAD Tinea Plan Plan of Care DID NOT SEE in SURGERY Cont Vanc/Zosyn Add Fluconazole Right Foot Xray Needs Vascular eval F/u labs/cults TOYA MAI MD Feb 06, 2017 10:41
--- NOTE | 2017-02-06 11:01 | PDOC ---
BRIEF OPERATIVE NOTE Date: Feb 06, 2017 Pre-Op Diagnosis Right foot ulcers Post-Op Diagnosis same Procedure Performed Debridement right foot ulcers x2, excision subcutaneous tissue, tendon and bone Surgeon Dr. Martins Hadoop Java Developer Rickey Peacock NP Anesthesia Type: MAC, Local Blood Loss minimal Specimens Obtained cultures Findings uclers lateral 3x2x1/2 medial 2x11/2x1 Complications none RICKEY PEACOCK DRILL PRESS OPERATOR NUMERICAL CONTROL Feb 06, 2017 11:01
[2017-02-06] MEDS ORDERED: HYDROCODONE/APAP 5/325MG TABLET. PO PRN (11:15)
--- NOTE | 2017-02-06 11:31 | OP ---
DATE OF SURGERY: 02/06/2017 PREOPERATIVE DIAGNOSIS: Necrotic ulcers, plantar right foot. POSTOPERATIVE DIAGNOSIS: Necrotic ulcers, plantar right foot. PROCEDURE PERFORMED: Excision of necrotic skin, subcutaneous tissue, and on the medial ulcer fascia, tendon, and bone. SURGEON: Oscar Martins MD. DIRECTOR FUNDRAISING: Mally Soliman. ANESTHETIC: 1% lidocaine plus sedation. DESCRIPTION OF PROCEDURE: After adequate preparation and draping, lidocaine was used to infiltrate into the ulcers on the plantar aspect of the right foot. The lateral one appeared to be more superficial. Some purulence was found under the eschar as it was cut off, and this was cultured for both aerobic and anaerobic. The lateral wound was carried down through the skin into the subcutaneous tissue until we got bleeding. Bleeding was controlled with the cautery. There was no marquis prominence on the lateral wound. On the medial wound, the incision was made through the eschar. Cultures were taken. The dissection was continued deep because there was a protruding first metatarsal head there, and once we excised the tendon to the first toe and some fascia, the bone was protruding into the wound, and this was cut back with a rongeur. There was considerable bleeding, controlled with cautery. The wounds were then packed with gauze. Sterile dressings were applied. The patient tolerated the procedure well. Total measurements, lateral wound 3 cm x 2 cm x 1.5 cm, the medial ulcer 2 cm x 1.5 cm x 1 cm deep. He tolerated the procedure well. Minimal blood loss. OSCAR MARTINS MD DR: MAGED/vielka JOB#: [id number] / [id number]
[2017-02-06] MEDS: MIDODRINE 2.5 MG TABLET PO SCH ×3 (12:00→17:06)
[2017-02-06] MEDS: ASPIRIN ENTERIC COATED 81 MG TABLET.DR. PO SCH (12:53)
[2017-02-06] MEDS: DULOXETINE HCL 30 MG CAPSULE.DR. PO SCH (12:53)
[2017-02-06] MEDS: CELECOXIB 200 MG CAPSULE. PO SCH ×2 (12:53→21:31)
[2017-02-06] MEDS: TAMSULOSIN 0.4 MG CAP.ER.24H. PO SCH (12:53)
[2017-02-06] MEDS: GLIMEPIRIDE 2 MG TABLET. PO SCH (12:53)
[2017-02-06] MEDS: FLUCONAZOLE 100 MG TABLET. PO SCH (12:53)
[2017-02-06] MEDS: VANCOMYCIN PER PHARMACY MC PRN ×2 (13:59→18:31)
[2017-02-06] MEDS: ATORVASTATIN CALCIUM 10 MG TABLET. PO SCH (21:31)
--- NOTE | 2017-02-06 22:20 | HP ---
ADMIT DATE: 02/04/2017 CHIEF COMPLAINT AND HISTORY OF PRESENT ILLNESS: This 81-year-old male who is well known to me from followup in the office. The patient was seen in the office on the day of admission with his daughter having found sores on the bottom of his right foot. It had been smelling and stinky and that is how she had actually . He has been having couple of 3 days with loss of appetite, was not getting up and around or getting dressed or shaved and generally not feeling well and it was felt to have diabetic foot infection with severe constitutional symptoms and was admitted for the same. PAST MEDICAL HISTORY: Remarkable for diabetes. He may have some ____ dementia, has a history of some depression, has a history of BPH, hyperlipidemia, some orthostatic hypotension. MEDICATIONS: Brought with the patient, listed on the computer have been addressed. ALLERGIES: HE IS ALLERGIC TO ZETIA AND LIPITOR. SOCIAL HISTORY: He is a nonsmoker, nondrinker, does not use drugs. He is , lives at home alone with his daughter living with him and helps to take care of him. REVIEW OF SYSTEMS: As mentioned above. PHYSICAL EXAMINATION: GENERAL: He is a well-developed, well-nourished male who appears disheveled compared to his normal state of grooming. VITAL SIGNS: Stable. He is afebrile. HEENT: Remarkable for glasses. NECK: Supple without adenopathy or thyromegaly. CHEST: Clear to auscultation and percussion. HEART: Regular rate and rhythm without S3, S4, or murmur. ABDOMEN: Soft, nontender, without hepatosplenomegaly or masses. EXTREMITIES: Reveal 2 open ulcers on the plantar surface of the right foot with some mild drainage and smelling consistent with infection. NEUROLOGIC: He is intact. IMPRESSION: Diabetic foot infection as noted above with other problems above. PLAN: The patient has been admitted, antibiotics have been started. ID and Ortho will be asked to see him and the patient will be monitored, managed and treated appropriately. LUISITO RUSSELL MD DR: CORINNE/vielka JOB#: [id number] / [id number]
[2017-02-06] MEDS: INSULIN DETEMIR 300 UNITS/3 ML INSULN.PEN. SQ SCH (23:07)
[2017-02-07 03:00] VITALS: BP 133/71
[2017-02-07] MEDS: VANCOMYCIN 1 GM in IV NORMAL SALINE 250ML 250 ML IV SCH ×2 (05:58→17:22)
[2017-02-07 07:00] VITALS: BP 133/78
[2017-02-07] MEDS: INSULIN ASPART 300 UNITS/3 ML INSULN.PEN SQ SCH ×3 (08:00→17:24)
[2017-02-07] MEDS: DULOXETINE HCL 30 MG CAPSULE.DR. PO SCH (08:12)
[2017-02-07] MEDS: CELECOXIB 200 MG CAPSULE. PO SCH ×2 (08:12→21:32)
[2017-02-07] MEDS: TAMSULOSIN 0.4 MG CAP.ER.24H. PO SCH (08:12)
[2017-02-07] MEDS: MIDODRINE 2.5 MG TABLET PO SCH ×3 (08:13→17:21)
[2017-02-07] MEDS: FLUCONAZOLE 100 MG TABLET. PO SCH (08:13)
[2017-02-07] MEDS: ASPIRIN ENTERIC COATED 81 MG TABLET.DR. PO SCH (08:14)
[2017-02-07] MEDS: GLIMEPIRIDE 2 MG TABLET. PO SCH (08:14)
[2017-02-07] MEDS: METOPROLOL TART IMMED RELEASE 25 MG TABLET. PO SCH ×2 (08:15→21:34)
[2017-02-07] MEDS: PIPERACILLIN/TAZOBACTAM 3.375 GM in IV NORMAL SALINE 50ML 50 ML IV SCH ×2 (08:15→15:35)
--- NOTE | 2017-02-07 10:00 | PDOC ---
GENERAL General: vss and afebrile. awake and alert. sugars decent. surgery note reviewed. awaiting cultures from same. chest clear and heart regular and foot bandaged. continue antibiotics. Problems: VITAL SIGNS Vital Signs: Vital Signs Date Time Temp Pulse Resp B/P Pulse Ox O2 Delivery O2 Flow Rate FiO2 02/07/17 08:15 70 133/78 02/07/17 08:00 Room Air 02/07/17 07:00 97.5 16 97.5 02/07/17 03:00 93 02/06/17 11:02 10 I & O I & O Intake and Output 02/07/17 07:00 Intake Total 2600 ml Output Total 4375 ml Balance -1775 ml Intake Oral 2100 ml IV Total 500 ml Output Urine Total 4375 ml ALLERGIES Allergies: Allergies Coded Allergies Type Severity Reaction Last Updated Verified No Known Drug Allergies 02/06/17 No MEDS Medications: Current Medications Medications (Trade) Dose Ordered Sig/Chay Start Time Stop Time Status Last Admin Dose Admin Acetaminophen/ Hydrocodone Bitart (Lortab 5/325) 1 tab PRN Q4HRS PRN 02/06/17 11:15 02/06/17 21:34 1 TAB Aspirin (Ecotrin) 81 mg DAILY 02/05/17 09:00 02/07/17 08:14 81 MG Atorvastatin Calcium (Lipitor) 10 mg QHS 02/04/17 21:00 02/06/17 21:31 10 MG Cefazolin Sodium/ Dextrose (Ancef 2gm Premix) 50 ml @ 100 mls/hr 1X PREOP PRN 02/05/17 06:00 02/05/17 18:00 Cancel Celecoxib (Celebrex) 200 mg BID 02/04/17 21:00 02/07/17 08:12 200 MG Dextrose (Dextrose 50%-Water Syringe) 12.5 gm PRN Q15MIN PRN 02/04/17 15:15 02/05/17 04:58 12.5 GM Duloxetine HCl (Cymbalta) 60 mg DAILY 02/05/17 09:00 02/07/17 08:12 60 MG Ephedrine Sulfate (Akovaz) 50 mg STK-MED ONCE 02/06/17 10:40 02/06/17 10:41 DC Fentanyl Citrate (Fentanyl 2ml Vial) 100 mcg STK-MED ONCE 02/06/17 08:32 4/7/17 08:33 DC Fluconazole (Diflucan) 100 mg DAILY 02/05/17 09:00 02/07/17 08:13 100 MG Glimepiride (Amaryl) 4 mg DAILY 02/05/17 09:00 02/07/17 08:14 4 MG Hydromorphone HCl (Dilaudid) 0.5 mg PRN Q10MIN PRN 02/06/17 07:00 02/07/17 06:59 DC Insulin Aspart (Novolog) 0-5 UNITS TIDWMEALS 02/04/17 17:00 02/06/17 17:08 4 UNITS Insulin Aspart 7 units 7 units 1X ONCE 02/04/17 17:45 02/04/17 17:46 DC 02/04/17 18:07 7 UNITS Insulin Detemir 20 units 20 units QHS 02/04/17 21:00 02/06/17 23:07 20 UNITS Lactated Ringer's (Iv Lactated Ringers) 1,000 ml @ 0 mls/hr Q0M 02/06/17 07:00 02/06/17 18:59 DC 02/06/17 10:32 30 MLS/HR Lidocaine HCl (Lidocaine HCl 2% Abboject) 100 mg STK-MED ONCE 02/06/17 08:32 02/06/17 08:33 DC Lidocaine HCl 30 ml 30 ml STK-MED ONCE 02/06/17 07:15 02/06/17 07:16 DC 02/06/17 10:44 4 ML Metoprolol Tartrate (Lopressor) 25 mg BID 02/04/17 21:00 02/07/17 08:15 25 MG Midodrine (Proamatine) 2.5 mg [id number] 02/04/17 18:00 02/05/17 15:11 DC 02/05/17 12:14 2.5 MG Midodrine 2.5 mg 2.5 mg TIDWMEALS 02/05/17 17:00 02/07/17 08:13 2.5 MG Morphine Sulfate 1 mg 1 mg PRN Q10MIN PRN 02/06/17 07:00 02/07/17 06:59 DC Ondansetron HCl (Zofran) 4 mg STK-MED ONCE 02/06/17 08:32 02/06/17 08:33 DC Piperacillin Sod/ Tazobactam Sod/ Sodium Chloride (Zosyn/Iv Sodium Chloride 0.9% 50ml) 50 ml @ 100 mls/hr Q8H 02/04/17 16:00 02/07/17 08:15 100 MLS/HR Prochlorperazine Edisylate (Compazine) 5 mg PACU PRN PRN 02/06/17 07:00 02/07/17 06:59 DC Propofol (Diprivan) 20 ml @ As Directed STK-MED ONCE 02/06/17 08:32 02/06/17 08:33 DC Silver Sulfadiazine (Silvadene) 25 kimberly STK-MED ONCE 02/06/17 07:15 02/06/17 07:16 DC Tamsulosin HCl (Flomax) 0.4 mg DAILY 02/05/17 09:00 02/07/17 08:12 0.4 MG Vancomycin HCl 1 each 1X ONCE 02/06/17 17:30 02/06/17 17:31 DC Vancomycin HCl 1 each 1 each PRN DAILY PRN 02/04/17 15:15 02/06/17 18:31 1 EACH Vancomycin HCl/ Sodium Chloride (Iv Sodium Chloride 0.9% 250ml) 250 ml @ 250 mls/hr Q12H 02/05/17 18:00 02/07/17 05:58 250 MLS/HR Vancomycin HCl/ Sodium Chloride (Iv Sodium Chloride 0.9% 500ml Bag) 500 ml @ 250 mls/hr 1X ONCE 02/04/17 16:00 02/04/17 17:59 DC 02/04/17 17:14 250 MLS/HR LAB Lab: Laboratory Tests Test 02/06/17 11:13 02/06/17 12:26 02/06/17 16:55 02/06/17 17:30 Glucose (Fingerstick) 63mg/dL (70-99) 132mg/dL (70-99) 264mg/dL (70-99) Vancomycin Level Trough 15.3mcg/mL (10.0-20.0) Vancomycin Last Dose Date 02/06/17 Vancomycin Last Dose Time 0555 Test 02/06/17 22:53 02/07/17 07:24 02/07/17 07:58 Glucose (Fingerstick) 236mg/dL (70-99) 57mg/dL (70-99) 65mg/dL (70-99) Nutrition Consultation Dietary Evaluation: Recommendations by RD: Increase Calorie Intake, Protein supplementation Comments: continue boost glucose control tid REC MVI, vit c for wound healing Expected Outcomes/Goals: to meet > 75% est nutr needs Malnutrition Findings: Reduced Cone Cleaner Strength: N/A Weight Status: Appropriate Fluid Accumulation (N/A): N/A LUISITO RUSSELL MD Feb 07, 2017 10:00
[2017-02-07] MEDS: VANCOMYCIN PER PHARMACY MC PRN (10:59)
[2017-02-07 11:00] VITALS: BP 139/64
--- NOTE | 2017-02-07 11:14 | PDOC ---
Provider Note Provider Note AF VSS awake and alert right foot with open wound on the plantar surface is clean A/P s/p right foot debridement - VAC dressing to the foot wound SHIREEN NICOLAS MD Feb 07, 2017 11:14
--- NOTE | 2017-02-07 13:50 | PDOC ---
Infectious Disease Note Subjective Subjective Comfortable, denies pain + loose stools with urgency and incontinence, 1-2 times a day Appetite good ROS ROS GEN: Denies fevers, chills, sweats HEENT: Denies sore throat CV: Denies chest pain RESP: Denies shortness of air, cough GI: Denies n/v NEURO: Denies confusion, dizziness MSK: Denies weakness, joint pain/swelling Vital Sign Vital Signs Vital Signs Date Time Temp Pulse Resp B/P Pulse Ox O2 Delivery O2 Flow Rate FiO2 02/07/17 12:12 66 139/64 02/07/17 11:00 96.6 100 Room Air 96.6 02/07/17 07:00 16 02/06/17 11:02 10 Physical Exam PHYSICAL EXAM GENERAL: Propped up in bed, eating LUNGS: Clear HEART: S1S2, no gallop, no murmur ABD: Soft, NT, BS present : Marley EXT: No edema, no cyanosis. Wound vac in place right plantar foot CONTINUOUS MINING OPERATOR: Alert, oriented x 3, no focal neurologic deficit SKIN: No rash IV: ok Labs Lab Laboratory Tests Test 02/06/17 16:55 02/06/17 17:30 02/06/17 22:53 02/07/17 07:24 Glucose (Fingerstick) 264mg/dL (70-99) 236mg/dL (70-99) 57mg/dL (70-99) Vancomycin Level Trough 15.3mcg/mL (10.0-20.0) Vancomycin Last Dose Date 02/06/17 Vancomycin Last Dose Time 0555 Test 02/07/17 07:58 02/07/17 11:45 Glucose (Fingerstick) 65mg/dL (70-99) 191mg/dL (70-99) Micro Intra-op cultures right foot GRAM STAIN Final WBCS NONE SEEN GRAM POSITIVE COCCI FEW Objective Assessment Right plantar foot ulcer. s/p excision of necrotic skin, subcutaneous tissue, and on the medial ulcer fascia, tendon, and bone. 02/06. Intra-op cx: GPC DM PAD Tinea Plan Plan of Care Cont Vanc, Zosyn and Fluconazole Await GPC ID am labs Attending Co-Sign The patient was seen and interviewed as well as examined at the bedside. The chart was reviewed. The case was discussed. Agree with the plan of care. SANDRA FRANCISCO APPRENTICE EMBALMER Feb 07, 2017 13:50 ARLET ARANDA MD Feb 07, 2017 16:01
[2017-02-07 15:00] VITALS: BP 125/61
[2017-02-07 19:00] VITALS: BP 138/68
[2017-02-07] MEDS: ATORVASTATIN CALCIUM 10 MG TABLET. PO SCH (21:32)
[2017-02-07] MEDS: INSULIN DETEMIR 300 UNITS/3 ML INSULN.PEN. SQ SCH (21:39)
[2017-02-07 23:00] VITALS: BP 146/67
[2017-02-08] MEDS: PIPERACILLIN/TAZOBACTAM 3.375 GM in IV NORMAL SALINE 50ML 50 ML IV SCH ×4 (00:10→17:35)
[2017-02-08 03:22] VITALS: BP 135/65
[2017-02-08 05:33] LABS: BASO % 1 % (0-3); EOS % 6 % (0-3); HEMATOCRIT 28.7 % (39.0-53.0); HEMOGLOBIN 9.3 g/dL (13.0-17.5); LYMPH # 2.1 x10^3/uL (1.0-4.8); LYMPH % 29 % (24-48); MEAN CORPUSCULAR HEMOGLOBIN 28 pg (25-35); MEAN CORPUSCULAR HGB CONC 33 g/dL (31-37); MEAN CORPUSCULAR VOLUME 85 fL (79-100); MONO % 11 % (0-9); NEUT % 53 % (31-73); PLATELET COUNT 210 x10^3/uL (140-400); RED BLOOD COUNT 3.36 x10^6/uL (4.30-5.70); RED CELL DISTRIBUTION WIDTH 13.6 % (11.5-14.5); WHITE BLOOD COUNT 7.2 x10^3/uL (4.0-11.0)
[2017-02-08 06:05] LABS: CALCIUM 8.5 mg/dL (8.5-10.1); CREATININE 0.9 mg/dL (0.7-1.3); GFR 81.2; POTASSIUM 3.9 mmol/L (3.5-5.1)
[2017-02-08] MEDS: VANCOMYCIN 1 GM in IV NORMAL SALINE 250ML 250 ML IV SCH ×2 (06:32→16:26)
[2017-02-08] MEDS: DEXTROSE 50% 25 GM / 50ML DISP.SYRIN. IV PRN ×2 (06:40→06:41)
[2017-02-08 07:37] VITALS: BP 148/73
[2017-02-08] MEDS: INSULIN ASPART 300 UNITS/3 ML INSULN.PEN SQ SCH ×3 (08:00→16:34)
[2017-02-08] MEDS: TAMSULOSIN 0.4 MG CAP.ER.24H. PO SCH (08:23)
[2017-02-08] MEDS: ASPIRIN ENTERIC COATED 81 MG TABLET.DR. PO SCH (08:23)
[2017-02-08] MEDS: FLUCONAZOLE 100 MG TABLET. PO SCH (08:23)
[2017-02-08] MEDS: DULOXETINE HCL 30 MG CAPSULE.DR. PO SCH (08:23)
[2017-02-08] MEDS: METOPROLOL TART IMMED RELEASE 25 MG TABLET. PO SCH ×2 (08:24→21:45)
[2017-02-08] MEDS: GLIMEPIRIDE 2 MG TABLET. PO SCH (08:24)
[2017-02-08] MEDS: MIDODRINE 2.5 MG TABLET PO SCH ×3 (08:24→16:25)
[2017-02-08] MEDS: CELECOXIB 200 MG CAPSULE. PO SCH ×2 (08:25→21:44)
[2017-02-08 11:10] VITALS: BP 144/77
--- NOTE | 2017-02-08 12:06 | PDOC ---
Infectious Disease Note Subjective Subjective dizzy earlier, low glucose Feeling better now Denies pain ROS ROS GEN: Denies fevers, chills, sweats CV: Denies chest pain RESP: Denies shortness of air, cough GI: Denies n/v Vital Sign Vital Signs Vital Signs Date Time Temp Pulse Resp B/P Pulse Ox O2 Delivery O2 Flow Rate FiO2 02/08/17 08:24 67 135/65 02/08/17 08:00 Room Air 02/08/17 07:37 97.5 18 98 97.5 Physical Exam PHYSICAL EXAM GENERAL: reclining in the chair, relaxed appearance LUNGS: Clear HEART: S1S2, no gallop, no murmur ABD: Soft, NT, BS present : Marley EXT: No edema, no cyanosis. Wound vac in place right plantar foot RULING TECHNICIAN: Alert, oriented x 3, no focal neurologic deficit SKIN: No rash IV: ok Labs Lab Laboratory Tests Test 02/07/17 17:03 02/07/17 20:11 02/08/17 05:05 02/08/17 06:36 Glucose (Fingerstick) 248mg/dL (70-99) 291mg/dL (70-99) 41mg/dL (70-99) White Blood Count 7.2x10^3/uL (4.0-11.0) Red Blood Count 3.36x10^6/uL (4.30-5.70) Hemoglobin 9.3g/dL (13.0-17.5) Hematocrit 28.7% (39.0-53.0) Mean Corpuscular Volume 85fL (79-100) Mean Corpuscular Hemoglobin 28pg (25-35) Mean Corpuscular Hemoglobin Concent 33g/dL (31-37) Red Cell Distribution Width 13.6% (11.5-14.5) Platelet Count 210x10^3/uL (140-400) Neutrophils (%) (Auto) 53% (31-73) Lymphocytes (%) (Auto) 29% (24-48) Monocytes (%) (Auto) 11% (0-9) Eosinophils (%) (Auto) 6% (0-3) Basophils (%) (Auto) 1% (0-3) Neutrophils # (Auto) 3.8x10^3uL (1.8-7.7) Lymphocytes # (Auto) 2.1x10^3/uL (1.0-4.8) Monocytes # (Auto) 0.8x10^3/uL (0.0-1.1) Eosinophils # (Auto) 0.4x10^3/uL (0.0-0.7) Basophils # (Auto) 0.0x10^3/uL (0.0-0.2) Sodium Level 142mmol/L (136-145) Potassium Level 3.9mmol/L (3.5-5.1) Chloride Level 107mmol/L (98-107) Carbon Dioxide Level 29mmol/L (21-32) Anion Gap 6 (6-14) Blood Urea Nitrogen 15mg/dL (8-26) Creatinine 0.9mg/dL (0.7-1.3) Estimated GFR (Cockcroft-Gault) 81.2 Glucose Level 85mg/dL (70-99) Calcium Level 8.5mg/dL (8.5-10.1) Test 02/08/17 07:40 Glucose (Fingerstick) 115mg/dL (70-99) Micro Intra-op cultures right foot GRAM STAIN Final WBCS NONE SEEN GRAM POSITIVE COCCI FEW Objective Assessment Right plantar foot ulcer. s/p excision of necrotic skin, subcutaneous tissue, and on the medial ulcer fascia, tendon, and bone. 02/06. Intra-op cx: GPC DM PAD Tinea Plan Plan of Care Cont Vanc, Zosyn and Fluconazole Await GPC ID Attending Co-Sign The patient was seen and interviewed as well as examined at the bedside. The chart was reviewed. The case was discussed. Agree with the plan of care. SANDRA FRANCISCO APRN Feb 08, 2017 12:06 ARLET ARANDA MD Feb 08, 2017 14:37
--- NOTE | 2017-02-08 13:07 | PDOC ---
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 OBJECTIVE Vital Signs Vital Signs Date Time Temp Pulse Resp B/P Pulse Ox O2 Delivery O2 Flow Rate FiO2 02/08/17 12:06 67 135/65 02/08/17 11:10 97.7 66 18 144/77 94 Room Air 97.7 02/08/17 08:24 67 135/65 02/08/17 08:24 67 135/65 02/08/17 08:00 Room Air 02/08/17 07:37 97.5 69 18 148/73 98 Room Air 97.5 02/08/17 03:22 97.7 67 20 135/65 98 Room Air 97.7 02/07/17 23:00 98.1 77 20 146/67 95 Room Air 98.1 02/07/17 21:34 81 144/71 02/07/17 20:00 Room Air 02/07/17 19:00 97.7 78 20 138/68 98 Room Air 97.7 02/07/17 17:21 72 125/61 02/07/17 15:00 97.7 72 125/61 100 Room Air 97.7 I & O Intake and Output 02/08/17 07:00 Intake Total 290 ml Output Total 2850 ml Balance -2560 ml Intake Oral 240 ml IV Total 50 ml Output Urine Total 2850 ml # Bowel Movements 1 PHYSICAL EXAM Physical Exam plantar ulcer covered with wound vac, no erythema or warmness heart RRR abd soft lungs fairly clear ASSESSMENT/PLAN Assessment/Plan 1- hypoglycemia this Am decreased Levemir dose at HS 2- Right plantar foot ulcer. s/p excision of necrotic skin, subcutaneous tissue , and on the medial ulcer fascia, tendon, and bone. 02/06. wound vac in place 3- DM 4-PAD 5- Tinea Dr. Hunt will resume care in AM Problems: COMMENT Lab Laboratory Tests Test 02/07/17 17:03 02/07/17 20:11 02/08/17 05:05 02/08/17 06:36 Glucose (Fingerstick) 248mg/dL (70-99) 291mg/dL (70-99) 41mg/dL (70-99) White Blood Count 7.2x10^3/uL (4.0-11.0) Red Blood Count 3.36x10^6/uL (4.30-5.70) Hemoglobin 9.3g/dL (13.0-17.5) Hematocrit 28.7% (39.0-53.0) Mean Corpuscular Volume 85fL (79-100) Mean Corpuscular Hemoglobin 28pg (25-35) Mean Corpuscular Hemoglobin Concent 33g/dL (31-37) Red Cell Distribution Width 13.6% (11.5-14.5) Platelet Count 210x10^3/uL (140-400) Neutrophils (%) (Auto) 53% (31-73) Lymphocytes (%) (Auto) 29% (24-48) Monocytes (%) (Auto) 11% (0-9) Eosinophils (%) (Auto) 6% (0-3) Basophils (%) (Auto) 1% (0-3) Neutrophils # (Auto) 3.8x10^3uL (1.8-7.7) Lymphocytes # (Auto) 2.1x10^3/uL (1.0-4.8) Monocytes # (Auto) 0.8x10^3/uL (0.0-1.1) Eosinophils # (Auto) 0.4x10^3/uL (0.0-0.7) Basophils # (Auto) 0.0x10^3/uL (0.0-0.2) Sodium Level 142mmol/L (136-145) Potassium Level 3.9mmol/L (3.5-5.1) Chloride Level 107mmol/L (98-107) Carbon Dioxide Level 29mmol/L (21-32) Anion Gap 6 (6-14) Blood Urea Nitrogen 15mg/dL (8-26) Creatinine 0.9mg/dL (0.7-1.3) Estimated GFR (Cockcroft-Gault) 81.2 Glucose Level 85mg/dL (70-99) Calcium Level 8.5mg/dL (8.5-10.1) Test 02/08/17 07:40 02/08/17 11:08 Glucose (Fingerstick) 115mg/dL (70-99) 205mg/dL (70-99) ARTEMIO BRICENO MD Feb 08, 2017 13:07
[2017-02-08 14:34] VITALS: BP 83/65
[2017-02-08] MEDS: VANCOMYCIN PER PHARMACY MC PRN (15:47)
[2017-02-08 19:00] VITALS: BP 124/61
[2017-02-08] MEDS: ATORVASTATIN CALCIUM 10 MG TABLET. PO SCH (21:44)
[2017-02-08] MEDS: INSULIN DETEMIR 300 UNITS/3 ML INSULN.PEN. SQ SCH (21:49)
[2017-02-08 23:00] VITALS: BP 154/78
[2017-02-09] MEDS: PIPERACILLIN/TAZOBACTAM 3.375 GM in IV NORMAL SALINE 50ML 50 ML IV SCH ×2 (00:14→05:41)
[2017-02-09 03:00] VITALS: BP 149/78
[2017-02-09] MEDS: VANCOMYCIN 1 GM in IV NORMAL SALINE 250ML 250 ML IV SCH (06:33)
[2017-02-09 07:00] VITALS: BP 140/74
[2017-02-09] MEDS: INSULIN ASPART 300 UNITS/3 ML INSULN.PEN SQ SCH ×3 (08:00→17:00)
[2017-02-09] MEDS: MIDODRINE 2.5 MG TABLET PO SCH ×3 (08:00→15:50)
[2017-02-09] MEDS: GLIMEPIRIDE 2 MG TABLET. PO SCH (08:44)
[2017-02-09] MEDS: METOPROLOL TART IMMED RELEASE 25 MG TABLET. PO SCH ×2 (08:44→21:01)
[2017-02-09] MEDS: TAMSULOSIN 0.4 MG CAP.ER.24H. PO SCH (08:44)
[2017-02-09] MEDS: ASPIRIN ENTERIC COATED 81 MG TABLET.DR. PO SCH (08:45)
[2017-02-09] MEDS: FLUCONAZOLE 100 MG TABLET. PO SCH (08:45)
[2017-02-09] MEDS: CELECOXIB 200 MG CAPSULE. PO SCH ×2 (08:45→21:01)
[2017-02-09] MEDS: DULOXETINE HCL 30 MG CAPSULE.DR. PO SCH (08:45)
--- NOTE | 2017-02-09 09:10 | PDOC ---
Provider Note Provider Note Vascular S: Patient without complaints AF VSS awake and alert Right foot with wound vac in place, skin edges clean A/P s/p right foot debridement - 1/2 shoe in room, non-weight bearing on forefoot, ambulate with heel touch or 1/2 shoe only -f/u in [facility] weekly RICKEY PEACOCK APRN Feb 09, 2017 09:10
--- NOTE | 2017-02-09 09:12 | PDOC ---
Infectious Disease Note Subjective Subjective feeling good ROS ROS GEN: Denies fevers, chills, sweats HEENT: Denies blurred vision, sore throat CV: Denies chest pain RESP: Denies shortness of air, cough GI: Denies n/v/d NEURO: Denies confusion, dizziness Vital Sign Vital Signs Vital Signs Date Time Temp Pulse Resp B/P Pulse Ox O2 Delivery O2 Flow Rate FiO2 02/09/17 08:44 65 140/74 02/09/17 07:00 97.9 18 98 Room Air 97.9 Physical Exam PHYSICAL EXAM GENERAL: NAD, Alert HEENT: PERRL, OC/OP NECK: Supple, no JVD, no LN LUNGS: Clear HEART: S1S2, no gallop, no murmur ABD: Soft, NT, no organomegaly, no rebound EXT: No edema, no cyanosis 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 s/p excision of necrotic skin, subcutaneous tissue, and on the medial ulcer fascia, tendon, and bone. 02/06. Intra-op cx: GPC DM PAD Tinea Plan Plan of Care change antibiotics to po augmentin wound vac d/c henry d/c ARLET Leiva MD Feb 09, 2017 09:12
[2017-02-09 11:00] VITALS: BP 138/68
[2017-02-09] MEDS: AMOXICILLIN/K CLAV 875/125MG TABLET. PO SCH ×2 (12:07→21:01)
[2017-02-09 15:00] VITALS: BP 159/62
[2017-02-09] MEDS ORDERED: INSULIN ASPART 300 UNITS/3 ML INSULN.PEN SQ ONE (17:30)
[2017-02-09 19:00] VITALS: BP_SYST 101; BP_SYST 152; BP_DIAS 60; BP_DIAS 79
[2017-02-09] MEDS: ATORVASTATIN CALCIUM 10 MG TABLET. PO SCH (21:01)
[2017-02-09] MEDS: INSULIN DETEMIR 300 UNITS/3 ML INSULN.PEN. SQ SCH (21:05)
--- NOTE | 2017-02-09 21:17 | PDOC ---
GENERAL General: vss and afebrile. awake and alert and no severe pain. wound vac in place. snu eval ordered. sugars up and down. continue antibiotics and await final cultures. Problems: VITAL SIGNS Vital Signs: Vital Signs Date Time Temp Pulse Resp B/P Pulse Ox O2 Delivery O2 Flow Rate FiO2 02/09/17 21:01 79 152/79 02/09/17 19:00 98.1 20 97 Room Air 98.1 I & O I & O Intake and Output 02/09/17 07:00 Intake Total 2020 ml Output Total 5975 ml Balance -3955 ml Intake Oral 2020 ml Output Urine Total 5975 ml # Bowel Movements 5 ALLERGIES Allergies: Allergies Coded Allergies Type Severity Reaction Last Updated Verified No Known Drug Allergies 02/06/17 No MEDS Medications: Current Medications Medications (Trade) Dose Ordered Sig/Cahy Start Time Stop Time Status Last Admin Dose Admin Acetaminophen/ Hydrocodone Bitart 1 tab 1 tab PRN Q4HRS PRN 02/06/17 11:15 02/06/17 21:34 1 TAB Amoxicillin/ Clavulanate Potassium (Augmentin 875/ 125mg) 1 tab BID 02/09/17 11:00 02/09/17 21:01 1 TAB Aspirin (Ecotrin) 81 mg DAILY 02/05/17 09:00 02/09/17 08:45 81 MG Atorvastatin Calcium (Lipitor) 10 mg QHS 02/04/17 21:00 02/09/17 21:01 10 MG Cefazolin Sodium/ Dextrose (Ancef 2gm Premix) 50 ml @ 100 mls/hr 1X PREOP PRN 02/05/17 06:00 02/05/17 18:00 Cancel Celecoxib (Celebrex) 200 mg BID 02/04/17 21:00 02/09/17 21:01 200 MG Dextrose (Dextrose 50%-Water Syringe) 12.5 gm PRN Q15MIN PRN 02/04/17 15:15 02/08/17 06:41 12.5 GM Duloxetine HCl (Cymbalta) 60 mg DAILY 02/05/17 09:00 02/09/17 08:45 60 MG Ephedrine Sulfate (Akovaz) 50 mg STK-MED ONCE 02/06/17 10:40 02/06/17 10:41 DC Fentanyl Citrate (Fentanyl 2ml Vial) 100 mcg STK-MED ONCE 02/06/17 08:32 02/06/17 08:33 DC Fluconazole (Diflucan) 100 mg DAILY 02/05/17 09:00 02/09/17 09:13 DC 02/09/17 08:45 100 MG Glimepiride (Amaryl) 4 mg DAILY 02/05/17 09:00 02/09/17 08:44 4 MG Hydromorphone HCl (Dilaudid) 0.5 mg PRN Q10MIN PRN 02/06/17 07:00 02/07/17 06:59 DC Insulin Aspart (Novolog) 7 units ONCE ONCE 02/09/17 17:30 02/09/17 17:31 DC 02/09/17 17:21 7 UNITS Insulin Aspart 7 units 7 units 1X ONCE 02/04/17 17:45 02/04/17 17:46 DC 02/04/17 18:07 7 UNITS Insulin Detemir (Levemir) 15 units QHS 02/08/17 21:00 02/09/17 21:05 15 UNITS Insulin Detemir 20 units 20 units QHS 02/04/17 21:00 02/08/17 13:04 DC 02/07/17 21:39 20 UNITS Lactated Ringer's (Iv Lactated Ringers) 1,000 ml @ 0 mls/hr Q0M 02/06/17 07:00 02/06/17 18:59 DC 02/06/17 10:32 30 MLS/HR Lidocaine HCl (Lidocaine HCl 2% Abboject) 100 mg STK-MED ONCE 02/06/17 08:32 02/06/17 08:33 DC Lidocaine HCl 30 ml 30 ml STK-MED ONCE 02/06/17 07:15 02/06/17 07:16 DC 02/06/17 10:44 4 ML Metoprolol Tartrate (Lopressor) 25 mg BID 02/04/17 21:00 02/09/17 21:01 25 MG Midodrine (Proamatine) 2.5 mg [id number] 02/04/17 18:00 02/05/17 15:11 DC 02/05/17 12:14 2.5 MG Midodrine 2.5 mg 2.5 mg TIDWMEALS 02/05/17 17:00 02/08/17 16:25 2.5 MG Morphine Sulfate 1 mg 1 mg PRN Q10MIN PRN 02/06/17 07:00 02/07/17 06:59 DC Ondansetron HCl (Zofran) 4 mg STK-MED ONCE 02/06/17 08:32 02/06/17 08:33 DC Piperacillin Sod/ Tazobactam Sod/ Sodium Chloride (Zosyn/Iv Sodium Chloride 0.9% 50ml) 50 ml @ 100 mls/hr Q6HRS 02/08/17 00:00 02/09/17 09:13 DC 02/09/17 05:41 100 MLS/HR Prochlorperazine Edisylate (Compazine) 5 mg PACU PRN PRN 02/06/17 07:00 02/07/17 06:59 DC Propofol (Diprivan) 20 ml @ As Directed STK-MED ONCE 02/06/17 08:32 02/06/17 08:33 DC Silver Sulfadiazine (Silvadene) 25 kimberly STK-MED ONCE 02/06/17 07:15 02/06/17 07:16 DC Tamsulosin HCl (Flomax) 0.4 mg DAILY 02/05/17 09:00 02/09/17 08:44 0.4 MG Vancomycin HCl 1 each 1X ONCE 02/06/17 17:30 02/06/17 17:31 DC Vancomycin HCl (Vanco Per Pharmacy) 1 each PRN DAILY PRN 02/04/17 15:15 02/09/17 09:22 DC 02/08/17 15:47 1 EACH Vancomycin HCl/ Sodium Chloride (Iv Sodium Chloride 0.9% 250ml) 250 ml @ 250 mls/hr Q12H 02/05/17 18:00 02/09/17 09:13 DC 02/09/17 06:33 250 MLS/HR Vancomycin HCl/ Sodium Chloride (Iv Sodium Chloride 0.9% 500ml Bag) 500 ml @ 250 mls/hr 1X ONCE 02/04/17 16:00 02/04/17 17:59 DC 02/04/17 17:14 250 MLS/HR LAB Lab: Laboratory Tests Test 02/09/17 04:30 02/09/17 07:28 02/09/17 16:52 02/09/17 20:32 Clostridium difficile Toxin (PCR) Negative (Negative) Glucose (Fingerstick) 91mg/dL (70-99) 385mg/dL (70-99) 264mg/dL (70-99) Nutrition Consultation Dietary Evaluation: Recommendations by RD: Increase Calorie Intake, Protein supplementation Comments: continue boost glucose control tid REC MVI, vit c for wound healing Expected Outcomes/Goals: to meet > 75% est nutr needs Malnutrition Findings: Reduced Methods Specialist Strength: N/A Weight Status: Appropriate Fluid Accumulation (N/A): N/A LUISITO RUSSELL MD Feb 09, 2017 21:17
[2017-02-09 23:00] VITALS: BP 154/68
[2017-02-10 03:05] VITALS: BP 138/66
--- NOTE | 2017-02-10 06:31 | PDOC ---
Provider Note Provider Note POD # 4 Post op rt foot debridement VAC in place Plan: Ambulate with half shoe BENITO MORAES MD Feb 10, 2017 06:31
[2017-02-10 07:00] VITALS: BP 126/67
[2017-02-10] MEDS: INSULIN ASPART 300 UNITS/3 ML INSULN.PEN SQ SCH ×2 (07:46→12:07)
--- NOTE | 2017-02-10 08:11 | PDOC ---
GENERAL General: see discharge summary. Problems: VITAL SIGNS Vital Signs: Vital Signs Date Time Temp Pulse Resp B/P Pulse Ox O2 Delivery O2 Flow Rate FiO2 02/10/17 03:05 97.7 68 20 138/66 97 Room Air 97.7 I & O I & O Intake and Output 02/10/17 07:00 Intake Total 980 ml Output Total 2650 ml Balance -1670 ml Intake Oral 980 ml Output Urine Total 2650 ml # Bowel Movements 1 ALLERGIES Allergies: Allergies Coded Allergies Type Severity Reaction Last Updated Verified No Known Drug Allergies 02/06/17 No MEDS Medications: Current Medications Medications (Trade) Dose Ordered Sig/Chay Start Time Stop Time Status Last Admin Dose Admin Acetaminophen/ Hydrocodone Bitart 1 tab 1 tab PRN Q4HRS PRN 02/06/17 11:15 02/06/17 21:34 1 TAB Amoxicillin/ Clavulanate Potassium (Augmentin 875/ 125mg) 1 tab BID 02/09/17 11:00 02/09/17 21:01 1 TAB Aspirin (Ecotrin) 81 mg DAILY 02/05/17 09:00 02/09/17 08:45 81 MG Atorvastatin Calcium (Lipitor) 10 mg QHS 02/04/17 21:00 02/09/17 21:01 10 MG Cefazolin Sodium/ Dextrose (Ancef 2gm Premix) 50 ml @ 100 mls/hr 1X PREOP PRN 02/05/17 06:00 02/05/17 18:00 Cancel Celecoxib (Celebrex) 200 mg BID 02/04/17 21:00 02/09/17 21:01 200 MG Dextrose (Dextrose 50%-Water Syringe) 12.5 gm PRN Q15MIN PRN 02/04/17 15:15 02/08/17 06:41 12.5 GM Duloxetine HCl (Cymbalta) 60 mg DAILY 02/05/17 09:00 02/09/17 08:45 60 MG Ephedrine Sulfate (Akovaz) 50 mg STK-MED ONCE 02/06/17 10:40 02/06/17 10:41 DC Fentanyl Citrate (Fentanyl 2ml Vial) 100 mcg STK-MED ONCE 02/06/17 08:32 02/06/17 08:33 DC Fluconazole (Diflucan) 100 mg DAILY 02/05/17 09:00 02/09/17 09:13 DC 02/09/17 08:45 100 MG Glimepiride (Amaryl) 4 mg DAILY 02/05/17 09:00 02/09/17 08:44 4 MG Hydromorphone HCl (Dilaudid) 0.5 mg PRN Q10MIN PRN 02/06/17 07:00 02/07/17 06:59 DC Insulin Aspart (Novolog) 7 units ONCE ONCE 02/09/17 17:30 02/09/17 17:31 DC 02/09/17 17:21 7 UNITS Insulin Aspart 7 units 7 units 1X ONCE 02/04/17 17:45 02/04/17 17:46 DC 02/04/17 18:07 7 UNITS Insulin Detemir (Levemir) 15 units QHS 02/08/17 21:00 02/09/17 21:05 15 UNITS Insulin Detemir 20 units 20 units QHS 02/04/17 21:00 02/08/17 13:04 DC 02/07/17 21:39 20 UNITS Lactated Ringer's (Iv Lactated Ringers) 1,000 ml @ 0 mls/hr Q0M 02/06/17 07:00 02/06/17 18:59 DC 02/06/17 10:32 30 MLS/HR Lidocaine HCl (Lidocaine HCl 2% Abboject) 100 mg STK-MED ONCE 02/06/17 08:32 02/06/17 08:33 DC Lidocaine HCl 30 ml 30 ml STK-MED ONCE 02/06/17 07:15 02/06/17 07:16 DC 02/06/17 10:44 4 ML Metoprolol Tartrate (Lopressor) 25 mg BID 02/04/17 21:00 02/09/17 21:01 25 MG Midodrine (Proamatine) 2.5 mg [id number] 02/04/17 18:00 02/05/17 15:11 DC 02/05/17 12:14 2.5 MG Midodrine 2.5 mg 2.5 mg TIDWMEALS 02/05/17 17:00 02/08/17 16:25 2.5 MG Morphine Sulfate 1 mg 1 mg PRN Q10MIN PRN 02/06/17 07:00 02/07/17 06:59 DC Ondansetron HCl (Zofran) 4 mg STK-MED ONCE 02/06/17 08:32 02/06/17 08:33 DC Piperacillin Sod/ Tazobactam Sod/ Sodium Chloride (Zosyn/Iv Sodium Chloride 0.9% 50ml) 50 ml @ 100 mls/hr Q6HRS 02/08/17 00:00 02/09/17 09:13 DC 02/09/17 05:41 100 MLS/HR Prochlorperazine Edisylate (Compazine) 5 mg PACU PRN PRN 02/06/17 07:00 02/07/17 06:59 DC Propofol (Diprivan) 20 ml @ As Directed STK-MED ONCE 02/06/17 08:32 02/06/17 08:33 DC Silver Sulfadiazine (Silvadene) 25 kimberly STK-MED ONCE 02/06/17 07:15 02/06/17 07:16 DC Tamsulosin HCl (Flomax) 0.4 mg DAILY 02/05/17 09:00 02/09/17 08:44 0.4 MG Vancomycin HCl 1 each 1X ONCE 02/06/17 17:30 02/06/17 17:31 DC Vancomycin HCl (Vanco Per Pharmacy) 1 each PRN DAILY PRN 02/04/17 15:15 02/09/17 09:22 DC 02/08/17 15:47 1 EACH Vancomycin HCl/ Sodium Chloride (Iv Sodium Chloride 0.9% 250ml) 250 ml @ 250 mls/hr Q12H 02/05/17 18:00 02/09/17 09:13 DC 02/09/17 06:33 250 MLS/HR Vancomycin HCl/ Sodium Chloride (Iv Sodium Chloride 0.9% 500ml Bag) 500 ml @ 250 mls/hr 1X ONCE 02/04/17 16:00 02/04/17 17:59 DC 02/04/17 17:14 250 MLS/HR LAB Lab: Laboratory Tests Test 02/09/17 11:46 02/09/17 16:52 02/09/17 20:32 02/10/17 07:21 Glucose (Fingerstick) 186mg/dL (70-99) 385mg/dL (70-99) 264mg/dL (70-99) 82mg/dL (70-99) Nutrition Consultation Dietary Evaluation: Recommendations by RD: Increase Calorie Intake, Protein supplementation Comments: continue boost glucose control tid REC MVI, vit c for wound healing Expected Outcomes/Goals: to meet > 75% est nutr needs Malnutrition Findings: Reduced 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
[2017-02-10] MEDS: MIDODRINE 2.5 MG TABLET PO SCH ×2 (08:13→12:05)
[2017-02-10] MEDS: DULOXETINE HCL 30 MG CAPSULE.DR. PO SCH (08:13)
[2017-02-10] MEDS: CELECOXIB 200 MG CAPSULE. PO SCH (08:14)
[2017-02-10] MEDS: AMOXICILLIN/K CLAV 875/125MG TABLET. PO SCH (08:14)
[2017-02-10] MEDS: TAMSULOSIN 0.4 MG CAP.ER.24H. PO SCH (08:14)
[2017-02-10] MEDS: ASPIRIN ENTERIC COATED 81 MG TABLET.DR. PO SCH (08:14)
[2017-02-10] MEDS: GLIMEPIRIDE 2 MG TABLET. PO SCH (08:14)
[2017-02-10] MEDS: METOPROLOL TART IMMED RELEASE 25 MG TABLET. PO SCH (08:15)
[2017-02-10 10:43] VITALS: BP 117/54
--- NOTE | 2017-02-10 11:10 | PDOC ---
Infectious Disease Note Subjective Subjective feeling good ROS ROS GEN: Denies fevers, chills, sweats HEENT: Denies blurred vision, sore throat CV: Denies chest pain RESP: Denies shortness of air, cough GI: Denies n/v/d NEURO: Denies confusion, dizziness MSK: Denies weakness, joint pain/swelling Vital Sign Vital Signs Vital Signs Date Time Temp Pulse Resp B/P Pulse Ox O2 Delivery O2 Flow Rate FiO2 02/10/17 10:43 97.6 69 18 117/54 99 Room Air 97.6 Physical Exam PHYSICAL EXAM GENERAL: NAD, Alert HEENT: PERRL, OC/OP NECK: Supple, no JVD, no LN LUNGS: Clear HEART: S1S2, no gallop, no murmur ABD: Soft, NT, no organomegaly, no rebound EXT: No edema, no cyanosis 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 s/p excision of necrotic skin, subcutaneous tissue, and on the medial ulcer fascia, tendon, and bone. 02/06. Intra-op cx: GPC DM PAD Tinea Plan Plan of Care po augmentin d/c ARLET Peraza MD Feb 10, 2017 11:09
[2017-02-10 12:05] VITALS: BP 117/54
--- NOTE | 2017-02-11 00:03 | DS ---
DATE OF DISCHARGE: 02/10/2017 PRIMARY DIAGNOSES: Diabetic foot infection with right plantar foot ulcers x 2 with excision of necrotic skin, subcutaneous tissue and on the medial ulcer fascial tendon and some bone were resected with intraoperative cultures growing out gram-positive cocci, still was not final ____ by transfer to shelter, diabetes, peripheral arterial disease, tinea, hyperlipidemia, orthostatic hypertension. CHIEF COMPLAINT AND HISTORY OF PRESENT ILLNESS: This 81-year-old male who is well known to me from followup in the office. He was seen in the office on the day of admission with his daughter after she had found sores on the bottom of his right foot. He had been smelling and stinky and that is how she had actually found it. He had been having 2-3 days loss of appetite, was not getting up and around or dressed or shaved and generally is not feeling well. The patient was admitted for the same. SUMMARY OF STAY: The patient was admitted, white count was normal, sed rate was 83. Plain films of the foot show no evidence of osteomyelitis. Surgery was undertaken by Vascular Surgery with debridement of the ulcer as discussed above on the present diagnoses. Sugars were low in the morning, was then elevated during the days and insulin was adjusted throughout the stay. He was actually comfortable, not really needing much in the way of any pain control. ID followed along and thought he was ready to go to shelter on p.o. Augmentin on the day of discharge and this was accomplished. DISPOSITION: The patient is discharged to shelter. DISCHARGE MEDICATIONS: Please see orders regarding medication, activity, etc. We will continue to follow him ____. LUISITO RUSSELL MD DR: CORINNE/vielka JOB#: [id number] / [id number]
== END 2017-02-10 12:58 | DRG 629 ==
LOC: 5 NORTH 13:52
PROVIDERS: ADMIT Family Medicine; ATTEND Family Medicine
PROC: 0QBN0ZZ Excision of Right Metatarsal, Open Approach (ICD-10-PCS; principal; 2017-02-06 11:00)
DX: E11.621 Type 2 diabetes mellitus with foot ulcer (principal); E44.0 Moderate protein-calorie malnutrition; B35.9 Dermatophytosis, unspecified; E11.51 Type 2 diabetes mellitus with diabetic peripheral angiopathy without gangrene; E11.649 Type 2 diabetes mellitus with hypoglycemia without coma; E78.5 Hyperlipidemia, unspecified; L89.90 Pressure ulcer of unspecified site, unspecified stage; L97.519 Non-pressure chronic ulcer of other part of right foot with unspecified severity; N40.1 Benign prostatic hyperplasia with lower urinary tract symptoms; R32 Unspecified urinary incontinence; Z82.0 Family history of epilepsy and other diseases of the nervous system; Z82.49 Family history of ischemic heart disease and other diseases of the circulatory system; Z87.891 Personal history of nicotine dependence; I25.2 Old myocardial infarction; Z68.22 Body mass index [BMI] 22.0-22.9, adult; Z88.8 Allergy status to other drugs, medicaments and biological substances
CPT/HCPCS: 36415; 73620; 80048; 80053; 80202; 81001; 82947; 85027; 85651; 87071; 87075; 87086; 87205; 87324; C1769; J1815; J2405; J2543; J2704; J3010; J3370; J7040; J7042; J7050; J7120; 97605; J7030

== ENCOUNTER 2017-02-13 22:31 | Emergency (ER) | payer MEDICARE, BC ==
[~2017-02-13] VITALS: Ht 175.3 cm; Wt 88.9 kg
[2017-02-13 22:42] VITALS: BP 153/81
[2017-02-13] MEDS ORDERED: LIDOCAINE 2% JELLY 6ML IN APPLICATOR. ONE (23:01)
--- NOTE | 2017-02-14 00:43 | PHYS DOC ---
Past Medical History Past Medical History: Diabetes-Type II, Prostatitis, URI, Other Additional Past Medical Histor: enlarged prostate Past Surgical History: Other Additional Past Surgical Histo: R eye sx, Alcohol Use: None Drug Use: None Adult General Chief Complaint Chief Complaint: URINE CATHETER PROBLEM HPI HPI Patient is a 81 year old gentleman who presents here today secondary his Marley catheter falling out onto the long-term. Patient denies any other complaints at this time. Patient does not know how the Marley catheter fell out. Patient reports he was eating breakfast today when it fell out. Patient reports he has not made any urine throughout the day. Patient reports he feels significant amount of fullness in his suprapubic region. Patient appears upset because he says the nurses at the nursing facility and accusive appointment out and he adamantly denies pulling it out. Patient's physical exam is unremarkable except for some suprapubic fullness to palpation. Patient's other than was soft non-tender otherwise with no rebound or guarding with normal active bowel sounds. Patient not exhibiting any signs or symptoms of be consistent with an acute surgical abdomen. ER hospital course was significant for a 14 Lithuanian coud catheter being inserted. Multiple Tensilon initially been tried. Utilizing a lidocaine Urojet to numb up his urethra was able to pass a 14-fr coud catheter in his urethra. After passing his catheter we obtained clear yellow urine. No clots. No significant hematuria was appreciated. A/P Marley catheter placement. Patient would likely BPH and difficult passage of a Marley catheter. After multiple attempts at catheter was passed. Patient tolerated the procedure well be discharged back to the facility in stable condition. Review of Systems Review of Systems Constitutional: Denies fever or chills [] Eyes: Denies change in visual acuity, redness, or eye pain [] HENT: Denies nasal congestion or sore throat [] All other review systems are negative except as documented in the history of present illness portion. Current Medications Current Medications Current Medications Medications (Trade) Dose Ordered Sig/Chay Start Time Stop Time Status Last Admin Dose Admin Lidocaine HCl (Glydo (Lidocaine) Jelly) 6 kimberly REscour-MED ONCE 02/13/17 23:01 02/13/17 23:02 DC Allergies Allergies Allergies Coded Allergies Type Severity Reaction Last Updated Verified No Known Drug Allergies 02/06/17 No Physical Exam Physical Exam Constitutional: Well developed, well nourished, no acute distress, non-toxic appearance. [] HENT: Normocephalic, atraumatic, b Eyes: PERRLA, EOMI, conjunctiva normal, no discharge. [] Neck: Normal range of motion, no tenderness, Cardiovascular:Heart rate regular rhythm Lungs & Thorax: Bilateral breath sounds clear to auscultation [] Abdomen: Bowel sounds normal, soft, no tenderness, no masses, no pulsatile masses. [] Back: No tenderness, no CVA tenderness. [] . [] Neurologic: Alert and oriented X 3, Psychologic: Affect normal, judgement normal, mood normal. [] Current Patient Data Vital Signs Vital Signs Date Time Temp Pulse Resp B/P Pulse Ox O2 Delivery O2 Flow Rate FiO2 02/13/17 22:42 98.5 85 16 153/81 98 Room Air 98.5 EKG EKG [] Radiology/Procedures Radiology/Procedures [] Course & Med Decision Making Course & Med Decision Making Pertinent Labs and Imaging studies reviewed. (See chart for details) [] Dragon Disclaimer Dragon Disclaimer This electronic medical record was generated, in whole or in part, using a voice recognition dictation system. Departure Departure Impression: Primary Impression: Marley catheter problem Additional Impression: Dislodged Marley catheter Disposition: 05 TRANSFER OTHER Condition: IMPROVED Referrals: LUISITO RUSSELL MD (PCP) Patient Instructions: Marley Catheter Care, Adult Problem Qualifiers ALKA AMADO MD Feb 14, 2017 00:43
[2017-02-14] MEDS ORDERED: CIPROFLOXACIN HCL 250 MG TABLET. PO ONE (01:00)
== END 2017-02-14 01:50 | disposition short-term general hospital (02) ==
LOC: ER 22:31
DX: T83.028A Displacement of other urinary catheter, initial encounter (principal); E11.9 Type 2 diabetes mellitus without complications
CPT/HCPCS: 51702; 99284-25

== ENCOUNTER 2017-03-14 12:08 | Inpatient (IN) | payer MEDICARE, BC ==
[~2017-03-14] VITALS: Ht 176.5 cm; Wt 76.7 kg
[2017-03-14] MEDS ORDERED: IV NORMAL SALINE 1000ML BAG 1,000 ML IV SCH (12:38)
[2017-03-14 12:52] LABS: BASO # 0.1 x10^3/uL (0.0-0.2); BASO % 1 % (0-3); EOS % 3 % (0-3); HEMATOCRIT 31.4 % (39.0-53.0); HEMOGLOBIN 10.5 g/dL (13.0-17.5); LYMPH # 1.4 x10^3/uL (1.0-4.8); LYMPH % 15 % (24-48); MEAN CORPUSCULAR HEMOGLOBIN 28 pg (25-35); MEAN CORPUSCULAR HGB CONC 34 g/dL (31-37); MEAN CORPUSCULAR VOLUME 84 fL (79-100); MONO % 10 % (0-9); NEUT % 72 % (31-73); PLATELET COUNT 181 x10^3/uL (140-400); RED BLOOD COUNT 3.75 x10^6/uL (4.30-5.70); RED CELL DISTRIBUTION WIDTH 14.7 % (11.5-14.5); WHITE BLOOD COUNT 9.2 x10^3/uL (4.0-11.0)
[2017-03-14 12:59] LABS: CALCIUM 8.8 mg/dL (8.5-10.1); GFR 71.9; POTASSIUM 4.3 mmol/L (3.5-5.1)
[2017-03-14 13:03] LABS: INR 1.1 (0.8-1.1); PROTHROMBIN TIME PATIENT 13.5 SEC (11.7-14.0)
[2017-03-14 13:14] LABS: ALBUMIN 3.2 g/dL (3.4-5.0); ALBUMIN/GLOBULIN RATIO 0.6 (1.0-1.7); TOTAL BILIRUBIN 0.5 mg/dL (0.2-1.0); TOTAL PROTEIN 8.2 g/dL (6.4-8.2)
--- NOTE | 2017-03-14 13:34 | RAD ---
EXAM: CHEST 1 VIEW History: Fever COMPARISON: 09/12/2016 TECHNIQUE: Single portable radiograph of the chest FINDINGS: The cardiac silhouette is unremarkable. The lungs are clear bilaterally. The costophrenic sulci are clear and well demarcated. IMPRESSION: No radiographic evidence of an acute cardiopulmonary process.
[2017-03-14 13:43] LABS: BILIRUBIN,URINE NEGATIVE (NEG); GLUCOSE,URINE >=1000 mg/dL (NEG); NITRITE,URINE NEGATIVE (NEG); PROTEIN,URINE NEGATIVE (NEG-TRACE); UROBILINOGEN,URINE 0.2 mg/dL (0.2 mg/dL)
[2017-03-14 14:02] LABS: BACTERIA,URINE 0 /HPF (0-FEW); RBC,URINE OCC /HPF (0-2); WBC,URINE 20-40 /HPF (0-4); YEAST,URINE PRESENT /HPF
--- NOTE | 2017-03-14 14:38 | PHYS DOC ---
Past Medical History Past Medical History: Diabetes-Type II, Prostatitis, URI, Other Additional Past Medical Histor: enlarged prostate Past Surgical History: Other Additional Past Surgical Histo: R eye sx, Alcohol Use: None Drug Use: None Adult General Chief Complaint Chief Complaint: ALTERED MENTAL STATUS HPI HPI Patient is a 81 year old male brought to the ED by his daughter with the complaint of altered mental status. The patient does have dementia but usually is not this altered. The patient had been hospitalized and [facility], discharged 1-1/2 weeks ago to home. He was getting care for a right foot ulcer. There was some delay in getting the wound VAC placed once he got home but he has been getting care of that ulcer. He is on Augmentin for it. Thursday, 4 days ago, he was confused but he had a sugar of 59. He did have a little bit of a fall that day where he was eased down to the floor, he got a bruise on his leg from a but they state he did not hit his head. Then today, he is much less with that than usual, he is not acting like himself at all. He does have an indwelling Marley catheter. They had seen Dr. Barajas in the office and had discussed the possibility of the suprapubic catheter because of UTIs. He has not eaten well today at all, they think he doesn't have a good appetite. Also he has a loose tooth that is bothering him. PCP Urology Dr. Barajas Review of Systems Review of Systems Constitutional: Family Denies fever or chills to their knowledge GI: Family denies vomiting or diarrhea Review of systems is limited because the patient has dementia and altered mental status, above information is from the family Current Medications Current Medications Current Medications Medications (Trade) Dose Ordered Sig/Chay Start Time Stop Time Status Last Admin Dose Admin Sodium Chloride 1,000 ml @ 1,000 mls/hr Q1H 03/14/17 12:38 03/14/17 13:37 DC 03/14/17 13:18 1,000 MLS/HR Allergies Allergies Allergies Coded Allergies Type Severity Reaction Last Updated Verified No Known Drug Allergies 02/06/17 No Physical Exam Physical Exam Constitutional: Elderly 81-year-old man who is alert but not answering questions , cooperative, does not appear to be in distress, is not dyspneic HENT: Normocephalic, atraumatic, bilateral external ears normal, nose normal. [] Eyes: conjunctiva normal, no discharge. [] Neck: Normal range of motion, no stridor. [] Cardiovascular:Heart rate regular rhythm, tachycardic at about 110, no murmur [] Lungs & Thorax: Bilateral breath sounds clear to auscultation [] Abdomen: Bowel sounds normal, soft, no tenderness, no masses, no pulsatile masses. Abdomen is benign Skin: Warm, dry, no erythema, no rash. [] Extremities: Right foot is bandaged and in a postop shoe and has a wound VAC attached, visualized skin does not appear red or swollen Neurologic: Alert, normal motor function, normal sensory function, no focal deficits noted. [] Current Patient Data Vital Signs Vital Signs Date Time Temp Pulse Resp B/P (MAP) Pulse Ox O2 Delivery O2 Flow Rate FiO2 03/14/17 12:20 98.1 108 17 161/84 (109) 97 Room Air 98.1 Lab Values Laboratory Tests Test 03/14/17 11:31 03/14/17 12:23 03/14/17 13:30 White Blood Count 9.2 x10^3/uL (4.0-11.0) Red Blood Count 3.75 x10^6/uL (4.30-5.70) L Hemoglobin 10.5 g/dL (13.0-17.5) L Hematocrit 31.4 % (39.0-53.0) L Mean Corpuscular Volume 84 fL (79-100) Mean Corpuscular Hemoglobin 28 pg (25-35) Mean Corpuscular Hemoglobin Concent 34 g/dL (31-37) Red Cell Distribution Width 14.7 % (11.5-14.5) H Platelet Count 181 x10^3/uL (140-400) Neutrophils (%) (Auto) 72 % (31-73) Lymphocytes (%) (Auto) 15 % (24-48) L Monocytes (%) (Auto) 10 % (0-9) H Eosinophils (%) (Auto) 3 % (0-3) Basophils (%) (Auto) 1 % (0-3) Neutrophils # (Auto) 6.6 x10^3uL (1.8-7.7) Lymphocytes # (Auto) 1.4 x10^3/uL (1.0-4.8) Monocytes # (Auto) 0.9 x10^3/uL (0.0-1.1) Eosinophils # (Auto) 0.2 x10^3/uL (0.0-0.7) Basophils # (Auto) 0.1 x10^3/uL (0.0-0.2) Prothrombin Time 13.5 SEC (11.7-14.0) Prothrombin Time INR 1.1 (0.8-1.1) PTT 32 SEC (24-38) Sodium Level 134 mmol/L (136-145) L Potassium Level 4.3 mmol/L (3.5-5.1) Chloride Level 97 mmol/L (98-107) L Carbon Dioxide Level 28 mmol/L (21-32) Anion Gap 9 (6-14) Blood Urea Nitrogen 17 mg/dL (8-26) Creatinine 1.0 mg/dL (0.7-1.3) Estimated GFR (Cockcroft-Gault) 71.9 BUN/Creatinine Ratio 17 (6-20) Glucose Level 321 mg/dL (70-99) H Lactic Acid Level 2.7 mmol/L (0.4-2.0) H Calcium Level 8.8 mg/dL (8.5-10.1) Total Bilirubin 0.5 mg/dL (0.2-1.0) Aspartate Amino Transferase (AST) 21 U/L (15-37) Alanine Aminotransferase (ALT) 16 U/L (16-63) Alkaline Phosphatase 155 U/L (46-116) H Total Protein 8.2 g/dL (6.4-8.2) Albumin 3.2 g/dL (3.4-5.0) L Albumin/Globulin Ratio 0.6 (1.0-1.7) L Glucose (Fingerstick) 303 mg/dL (70-99) H Urine Collection Type U cath Urine Color Yellow Urine Clarity Clear Urine pH 6.0 Urine Specific [place] 1.020 Urine Protein Negative mg/dL (NEG-TRACE) Urine Glucose (UA) >=1000 mg/dL (NEG) Urine Ketones (Stick) Negative mg/dL (NEG) Urine Blood Small (NEG) Urine Nitrite Negative (NEG) Urine Bilirubin Negative (NEG) Urine Urobilinogen Dipstick 0.2 mg/dL (0.2 mg/dL) Urine Leukocyte Esterase Large (NEG) Urine RBC Occ /HPF (0-2) Urine WBC 20-40 /HPF (0-4) Urine Bacteria 0 /HPF (0-FEW) Urine Yeast Present /HPF Laboratory Tests 03/14/17 11:31 Laboratory Tests 03/14/17 11:31 EKG EKG [] Radiology/Procedures Radiology/Procedures One view portable chest x-ray obtained and read by me. Heart size is normal. Lung angel are clear. No acute cardio pulmonary abnormality [] Course & Med Decision Making Course & Med Decision Making Pertinent Labs and Imaging studies reviewed. (See chart for details) 81-year-old male presents with altered mental status and tachycardia, he is not febrile but I'm concerned that he may be septic. He has a couple of potential sources. He has a wound VAC on an active diabetic foot ulcer on the right foot although the family states that is looking better than it was. He also has an indwelling Marley catheter and the urine does appear to be purulent. Discussed with the family working him up but also admitting him for likely sepsis, there agreeable to that. Chest x-ray is clear, urinalysis does show UTI, culture was ordered. She was given a liter IV fluids for likely sepsis. He remained stable in the emergency department. I discussed the case with who will admit the patient. I wrote bridge orders. He requested a consult with infectious disease about antibiotic choice. I did speak with the infectious disease specialist education program manager and we discussed the case. She recommended IV Vanco and IV Zosyn which I started. [] Dragon Disclaimer Dragon Disclaimer This electronic medical record was generated, in whole or in part, using a voice recognition dictation system. Departure Departure Impression: Primary Impression: Altered mental status Additional Impression: Sepsis Disposition: 09 ADMITTED INPATIENT Admitting Physician: Luisito Prater Condition: GUARDED Referrals: LUISITO PRATER MD (PCP) Problem Qualifiers DEREK RAZA MD March 14, 2017 14:38
--- NOTE | 2017-03-14 14:58 | ACF ---
Admission Forms Criteria MENTAL STATUS CHANGE Clinical Indications for Inpatient Care (Place 'X' for any and all applicable criteria): Ongoing inpatient care may be needed for 1 or more of the following(1)(2)(3)(5)( 6): [X]I. Suspected serious etiology (eg, medical disorder, DEMOLITION HAMMER OPERATOR event) of altered mental status [ ]II. Danger to self or others not manageable at lower level of care [ ]III. Grave disability (eg, inability to perform self care necessary at lower level of care) [ ]IV. Agitation or inappropriate behavior interfering with care for primary condition (eg, attempting to discontinue lines or drains prematurely, unable to cooperate with respiratory care) [ ]V. Delirium [A] [D][E] as described by 1 or more of the following(26): [ ]a) Delirium due to alcohol or sedative [F] withdrawal [ ]b) Delirium of uncertain etiology that has not responded to appropriate empiric treatment [ ]c) Delirium that prevents performance of a life-sustaining function (eg, feeding or hydrating oneself) [ ]. General contraindications and/or Inappropriate clinical situations for Observational Care in patients with Mental Status Change, when ANY ONE of the following is required: [ ]a) Prediction of prolongation of LOS based on ANY ONE of the following may be considered as a contraindication for observational care 2, 3, 4, 5, 6, 7, 8, 9, 10, 11 [ ]i) Age > 65 yrs. [ ]ii) Patient arriving by ambulance [ ]iii) Patient with high acuity [ ]iv) Patient requiring vital sign monitoring [ ]v) Patient on IV medication [ ]b) Systolic blood pressures greater than or equal to 180mmHg 3, 12 [ ]c) Patient with altered mental status including delirium and other alteration of consciousness, (3) [ ]d) Patient whose discharge disposition will be to a group home home or rehabilitation home should not be managed in Emergency Department Observation Unit. CMS rule requires 3 days hospital stay before such placement.3,13 [ ]e) Patient with failure to thrive due to broad array of etiologies 3,16,17 [ ]f) Inability to ambulate 3,14 Extended stay beyond goal length of stay for the primary condition may be needed until ALL of the following are present(3)(5): [ ]a) Underlying medical etiology of mental status change is absent, or has been established and adequately treated [ ]b) Danger to self or others is absent or manageable at lower level of care. [ ]c) Behavior crisis management, including physical or chemical restraints, is not required or available at lower level of car [ ]d) Substance or alcohol withdrawal is absent or manageable at lower level of care. [ ]e) Behavioral symptoms (eg, agitation, somnolence, inappropriate behavior) are absent, or are manageable at lower level of care. The original [facility] content created by [facility] has been revised. The portions of the content which have been revised are identified through the use of italic text or in bold, and [facility] has neither reviewed nor approved the modified material. All other unmodified content is copyright [facility] [employer]. Please see references footnoted in the original [facility] edition 2016 Admission Criteria Met?: Yes CHRISTINE HAAS March 14, 2017 14:58
--- NOTE | 2017-03-14 14:59 | RAD ---
Examination: 2 views of the right foot History: History of right foot ulcer Comparison: 02/05/2017 Findings: The alignment of the tarsal bones grossly appears unremarkable. Mild degenerative changes identified in the tarsometatarsal joints. Moderate degenerative disease identified in the metatarsophalangeal joints and interphalangeal joints. A wound VAC identified in the dorsal aspect of the midfoot. Questionable small ulcer identified in the plantar aspect of the foot, seen on the lateral view at the level of the head of the first metatarsal Impression: 1. Questionable small ulcer identified in the plantar aspect of the foot, seen on the lateral view at the level of the head of the first metatarsal, 2. Degenerative changes right foot
[2017-03-14 15:35] VITALS: BP 170/79
[2017-03-14] MEDS: VANCOMYCIN PER PHARMACY MC PRN (15:55)
[2017-03-14] MEDS ORDERED: VANCOMYCIN 1.5 GM in IV NORMAL SALINE 500ML BAG 500 ML IV ONE (16:00)
[2017-03-14] MEDS ORDERED: DEXTROSE 50% 25 GM / 50ML DISP.SYRIN. IV PRN (17:30)
[2017-03-14] MEDS: MIDODRINE 2.5 MG TABLET PO SCH (17:47)
[2017-03-14] MEDS: INSULIN ASPART 300 UNITS/3 ML INSULN.PEN SQ SCH (17:54)
[2017-03-14 19:00] VITALS: BP 156/84
[2017-03-14] MEDS: PIPERACILLIN/TAZOBACTAM 3.375 GM in IV NORMAL SALINE 50ML 50 ML IV SCH ×2 (19:39→23:41)
[2017-03-14] MEDS: CELECOXIB 200 MG CAPSULE. PO SCH (20:38)
[2017-03-14] MEDS: METOPROLOL TART IMMED RELEASE 25 MG TABLET. PO SCH (20:39)
[2017-03-14] MEDS: ATORVASTATIN CALCIUM 10 MG TABLET. PO SCH (20:39)
[2017-03-14] MEDS: INSULIN DETEMIR 300 UNITS/3 ML INSULN.PEN. SQ SCH (20:44)
[2017-03-14 23:14] VITALS: BP 122/44
[2017-03-15 03:00] VITALS: BP 123/70
[2017-03-15] MEDS: VANCOMYCIN 1.25 GM in IV NORMAL SALINE 250ML 250 ML IV SCH ×2 (04:07→16:19)
[2017-03-15] MEDS: PIPERACILLIN/TAZOBACTAM 3.375 GM in IV NORMAL SALINE 50ML 50 ML IV SCH ×4 (06:06→23:59)
[2017-03-15] MEDS: MIDODRINE 2.5 MG TABLET PO SCH ×3 (06:36→17:32)
[2017-03-15 07:00] VITALS: BP 138/67
[2017-03-15] MEDS: GLIMEPIRIDE 2 MG TABLET. PO SCH (07:54)
[2017-03-15] MEDS: INSULIN ASPART 300 UNITS/3 ML INSULN.PEN SQ SCH ×3 (07:55→16:33)
[2017-03-15] MEDS: METOPROLOL TART IMMED RELEASE 25 MG TABLET. PO SCH ×2 (09:41→20:31)
[2017-03-15] MEDS: DULoxetine HCL 30 MG CAPSULE.DR PO SCH (09:41)
[2017-03-15] MEDS: ASPIRIN ENTERIC COATED 81 MG TABLET.DR. PO SCH (09:41)
[2017-03-15] MEDS: CELECOXIB 200 MG CAPSULE. PO SCH ×2 (09:41→20:31)
[2017-03-15] MEDS: TAMSULOSIN 0.4 MG CAP.ER.24H. PO SCH (09:41)
--- NOTE | 2017-03-15 09:50 | PDOC ---
GENERAL General: see dictated H&P. Problems: VITAL SIGNS Vital Signs: Vital Signs Date Time Temp Pulse Resp B/P (MAP) Pulse Ox O2 Delivery O2 Flow Rate FiO2 03/15/17 09:41 79 138/67 03/15/17 08:00 Room Air 03/15/17 07:00 98.9 16 96 98.9 I & O I & O Intake and Output 03/15/17 07:00 Intake Total 1000 ml Output Total 2150 ml Balance -1150 ml Intake IV Total 1000 ml Output Urine Total 2150 ml ALLERGIES Allergies: Allergies Coded Allergies Type Severity Reaction Last Updated Verified No Known Drug Allergies 02/06/17 No MEDS Medications: Current Medications Medications (Trade) Dose Ordered Sig/Chay Start Time Stop Time Status Last Admin Dose Admin Aspirin (Ecotrin) 81 mg DAILY08 03/15/17 08:00 03/15/17 09:41 81 MG Atorvastatin Calcium (Lipitor) 10 mg QHS 03/14/17 21:00 03/14/17 20:39 10 MG Celecoxib (CeleBREX) 200 mg BID 03/14/17 21:00 03/15/17 09:41 200 MG Dextrose (Dextrose 50%-Water Syringe) 12.5 gm PRN Q15MIN PRN 03/14/17 17:30 Duloxetine HCl (Cymbalta) 60 mg DAILY 03/15/17 09:00 03/15/17 09:41 60 MG Glimepiride (Amaryl) 4 mg DAILY08 03/15/17 08:00 Insulin Aspart (NovoLOG) 0-5 UNITS TIDWMEALS 03/14/17 18:00 03/14/17 17:54 4 UNITS Insulin Detemir (Levemir) 20 units QHS 03/14/17 21:00 03/14/17 20:44 20 UNITS Metoprolol Tartrate (Lopressor) 25 mg BID 03/14/17 21:00 03/15/17 09:41 25 MG Midodrine (Proamatine) 2.5 mg [id number] 03/14/17 18:00 03/15/17 06:36 2.5 MG Piperacillin Sod/ Tazobactam Sod 3.375 gm/Sodium Chloride 50 ml @ 100 mls/hr Q6HRS 03/14/17 16:00 03/15/17 06:06 100 MLS/HR Sodium Chloride 1,000 ml @ 1,000 mls/hr Q1H 03/14/17 12:38 03/14/17 13:37 DC 03/14/17 13:18 1,000 MLS/HR Tamsulosin HCl (Flomax) 0.4 mg DAILY 03/15/17 09:00 03/15/17 09:41 0.4 MG Vancomycin HCl 1 each 1X ONCE 03/16/17 03:30 03/16/17 03:31 Vancomycin HCl (Vanco Per Pharmacy) 1 each PRN DAILY PRN 03/14/17 15:15 03/14/17 15:55 1 EACH Vancomycin HCl 1.25 gm/Sodium Chloride 250 ml @ 167 mls/hr Q12H 03/15/17 04:00 03/15/17 04:07 167 MLS/HR Vancomycin HCl 1.5 gm/Sodium Chloride 500 ml @ 250 mls/hr 1X ONCE 03/14/17 16:00 03/14/17 17:59 DC 03/14/17 16:48 250 MLS/HR LAB Lab: Laboratory Tests Test 03/14/17 11:31 03/14/17 12:23 03/14/17 13:30 03/14/17 16:02 White Blood Count 9.2 x10^3/uL (4.0-11.0) Red Blood Count 3.75 x10^6/uL (4.30-5.70) Hemoglobin 10.5 g/dL (13.0-17.5) Hematocrit 31.4 % (39.0-53.0) Mean Corpuscular Volume 84 fL (79-100) Mean Corpuscular Hemoglobin 28 pg (25-35) Mean Corpuscular Hemoglobin Concent 34 g/dL (31-37) Red Cell Distribution Width 14.7 % (11.5-14.5) Platelet Count 181 x10^3/uL (140-400) Neutrophils (%) (Auto) 72 % (31-73) Lymphocytes (%) (Auto) 15 % (24-48) Monocytes (%) (Auto) 10 % (0-9) Eosinophils (%) (Auto) 3 % (0-3) Basophils (%) (Auto) 1 % (0-3) Neutrophils # (Auto) 6.6 x10^3uL (1.8-7.7) Lymphocytes # (Auto) 1.4 x10^3/uL (1.0-4.8) Monocytes # (Auto) 0.9 x10^3/uL (0.0-1.1) Eosinophils # (Auto) 0.2 x10^3/uL (0.0-0.7) Basophils # (Auto) 0.1 x10^3/uL (0.0-0.2) Erythrocyte Sedimentation Rate 79 (0-15) Prothrombin Time 13.5 SEC (11.7-14.0) Prothromb Time International Ratio 1.1 (0.8-1.1) Activated Partial Thromboplast Time 32 SEC (24-38) Sodium Level 134 mmol/L (136-145) Potassium Level 4.3 mmol/L (3.5-5.1) Chloride Level 97 mmol/L (98-107) Carbon Dioxide Level 28 mmol/L (21-32) Anion Gap 9 (6-14) Blood Urea Nitrogen 17 mg/dL (8-26) Creatinine 1.0 mg/dL (0.7-1.3) Estimated GFR (Cockcroft-Gault) 71.9 BUN/Creatinine Ratio 17 (6-20) Glucose Level 321 mg/dL (70-99) Lactic Acid Level 2.7 mmol/L (0.4-2.0) Calcium Level 8.8 mg/dL (8.5-10.1) Total Bilirubin 0.5 mg/dL (0.2-1.0) Aspartate Amino Transf (AST/SGOT) 21 U/L (15-37) Alanine Aminotransferase (ALT/SGPT) 16 U/L (16-63) Alkaline Phosphatase 155 U/L (46-116) Total Protein 8.2 g/dL (6.4-8.2) Albumin 3.2 g/dL (3.4-5.0) Albumin/Globulin Ratio 0.6 (1.0-1.7) Glucose (Fingerstick) 303 mg/dL (70-99) 258 mg/dL (70-99) Urine Collection Type U cath Urine Color Yellow Urine Clarity Clear Urine pH 6.0 Urine Specific [place] 1.020 Urine Protein Negative mg/dL (NEG-TRACE) Urine Glucose (UA) >=1000 mg/dL (NEG) Urine Ketones (Stick) Negative mg/dL (NEG) Urine Blood Small (NEG) Urine Nitrite Negative (NEG) Urine Bilirubin Negative (NEG) Urine Urobilinogen Dipstick 0.2 mg/dL (0.2 mg/dL) Urine Leukocyte Esterase Large (NEG) Urine RBC Occ /HPF (0-2) Urine WBC 20-40 /HPF (0-4) Urine Bacteria 0 /HPF (0-FEW) Urine Yeast Present /HPF Test 03/14/17 20:33 03/15/17 07:36 03/15/17 07:57 Glucose (Fingerstick) 137 mg/dL (70-99) 49 mg/dL (70-99) 72 mg/dL (70-99) LUISITO RUSSELL MD March 15, 2017 09:50
[2017-03-15 11:00] VITALS: BP 130/72
--- NOTE | 2017-03-15 11:32 | HP ---
ADMIT DATE: 03/14/2017 CHIEF COMPLAINT AND HISTORY OF PRESENT ILLNESS: This is an 81-year-old male who is well known to me from followup in the office. The patient has recently been in [place] with foot ulcers and urinary retention. He has a chronic indwelling Marley since that stay and has been to care home on a wound VAC with foot with improvement and then to home with Home Health, although they were unable somehow to get the wound VAC out for a week after discharge but apparently restarted within the last couple of days prior to this admission. He was found to have altered mental status, weak, confused on the day of admission, brought to the Emergency Room where he was found to have evidence of urinary tract infection and admitted for the same. PAST MEDICAL HISTORY: Remarkable for diabetes with the urinary retention and enlarged prostate. MEDICATIONS: Brought with the patient, listed on the computer and have been addressed. ALLERGIES: He has no known drug allergies. SOCIAL HISTORY: , nonsmoker, nondrinker, does not use drugs. He lives at home with the daughter. FAMILY HISTORY: Noncontributory. REVIEW OF SYSTEMS: As for him stating he just overall does not feel well but nothing specific, but he is obviously not at his baseline mental status with some confusion and much less interactive than his usual. PHYSICAL EXAMINATION: GENERAL: He is a well-developed and well-nourished male, in no acute distress at rest. VITAL SIGNS: Stable. He is afebrile. HEAD, EYES, EARS, NOSE, AND THROAT: Remarkable for glasses. NECK: Supple without adenopathy or thyromegaly. CHEST: Clear to auscultation and percussion. HEART: Regular rate and rhythm without S3, S4, or murmur. ABDOMEN: Soft, nontender without hepatosplenomegaly or masses. EXTREMITIES: Reveal the right foot ulcers x2 with the medial being deeper but both appearing quite healthy and clean without evidence of infection. NEUROLOGIC: Remarkable for the encephalopathic changes. LABORATORY DATA: Initial white count is 9200. Hemoglobin was 10.5. He does have a left shift on his differential. CMP is essentially unremarkable. Lactic acid is slightly elevated to 2.7. Initial blood sugars are 303. Urine does appear consistent with urinary tract infection. IMPRESSION: Encephalopathy likely due to urinary tract infection with probable sepsis with encephalopathy as well as the evidence of urinary tract infection in a patient with multiple other problems listed above. PLAN: The patient has been admitted. IV antibiotics have been started. Infectious Disease will be consulted as well as the Wound Care team, and the patient will be monitored, managed, and treated appropriately. LUISITO RUSSELL MD DR: CORINNE/vielka JOB#: [id number] / [id number]
--- NOTE | 2017-03-15 12:15 | PDOC ---
Infectious Disease Note Vital Sign Vital Signs Vital Signs Date Time Temp Pulse Resp B/P (MAP) Pulse Ox O2 Delivery O2 Flow Rate FiO2 03/15/17 11:00 98.1 70 16 130/72 (91) 95 Room Air 98.1 Labs Lab Laboratory Tests Test 03/14/17 12:23 03/14/17 13:30 03/14/17 16:02 03/14/17 20:33 Glucose (Fingerstick) 303 mg/dL (70-99) 258 mg/dL (70-99) 137 mg/dL (70-99) Urine Collection Type U cath Urine Color Yellow Urine Clarity Clear Urine pH 6.0 Urine Specific [place] 1.020 Urine Protein Negative mg/dL (NEG-TRACE) Urine Glucose (UA) >=1000 mg/dL (NEG) Urine Ketones (Stick) Negative mg/dL (NEG) Urine Blood Small (NEG) Urine Nitrite Negative (NEG) Urine Bilirubin Negative (NEG) Urine Urobilinogen Dipstick 0.2 mg/dL (0.2 mg/dL) Urine Leukocyte Esterase Large (NEG) Urine RBC Occ /HPF (0-2) Urine WBC 20-40 /HPF (0-4) Urine Bacteria 0 /HPF (0-FEW) Urine Yeast Present /HPF Test 03/15/17 07:36 03/15/17 07:57 Glucose (Fingerstick) 49 mg/dL (70-99) 72 mg/dL (70-99) Objective Assessment Acute delirium superimposed on dementia. ?hypoglycemia vs infection Lactic acidosis Urinary retention requiring chronic indwelling Marley. ? CAUTI -Last changed by Dr. Barajas, on the 8th Right plantar ulcers-clean DM with episodes of hypoglycemia Plan Plan of Care Continue vanc and Zosyn Monitor WBC count, renal funtion and temp Await urine and blood culture results Local wound care D/w daughter Thank you [id number] Patient seen and examined. Chart reviewed. Case discussed with FILLER SHREDDER HELPER. Agree with above plan SANDRA FRANCISCO APRN March 15, 2017 12:14 EDI DELGADO MD March 15, 2017 16:01
[2017-03-15] MEDS: VANCOMYCIN PER PHARMACY MC PRN (14:18)
[2017-03-15 15:00] VITALS: BP 126/60
[2017-03-15 19:00] VITALS: BP 91/47
[2017-03-15] MEDS: ATORVASTATIN CALCIUM 10 MG TABLET. PO SCH (20:31)
[2017-03-15] MEDS: INSULIN DETEMIR 300 UNITS/3 ML INSULN.PEN. SQ SCH (20:37)
[2017-03-15 22:55] VITALS: BP 100/53
[2017-03-16 04:22] LABS: BASO % 0 % (0-3); EOS % 3 % (0-3); HEMATOCRIT 27.6 % (39.0-53.0); HEMOGLOBIN 9.4 g/dL (13.0-17.5); LYMPH % 18 % (24-48); MEAN CORPUSCULAR HEMOGLOBIN 28 pg (25-35); MEAN CORPUSCULAR HGB CONC 34 g/dL (31-37); MEAN CORPUSCULAR VOLUME 84 fL (79-100); MONO % 14 % (0-9); NEUT % 65 % (31-73); PLATELET COUNT 147 x10^3/uL (140-400); RED BLOOD COUNT 3.31 x10^6/uL (4.30-5.70); RED CELL DISTRIBUTION WIDTH 15.6 % (11.5-14.5); WHITE BLOOD COUNT 11.3 x10^3/uL (4.0-11.0)
[2017-03-16 04:32] LABS: CALCIUM 8.4 mg/dL (8.5-10.1); CREATININE 1.7 mg/dL (0.7-1.3); POTASSIUM 3.3 mmol/L (3.5-5.1)
[2017-03-16] MEDS ORDERED: VANCOMYCIN 1 GM in IV NORMAL SALINE 250ML 250 ML IV SCH ×2 (05:00→23:00)
[2017-03-16] MEDS: VANCOMYCIN PER PHARMACY MC PRN ×2 (05:37→15:05)
[2017-03-16] MEDS: PIPERACILLIN/TAZOBACTAM 3.375 GM in IV NORMAL SALINE 50ML 50 ML IV SCH ×3 (05:56→17:53)
[2017-03-16] MEDS: MIDODRINE 2.5 MG TABLET PO SCH ×3 (05:59→18:00)
[2017-03-16 07:00] VITALS: BP 142/62
[2017-03-16] MEDS: INSULIN ASPART 300 UNITS/3 ML INSULN.PEN SQ SCH ×3 (08:00→18:00)
[2017-03-16] MEDS: GLIMEPIRIDE 2 MG TABLET. PO SCH (08:12)
[2017-03-16] MEDS: CELECOXIB 200 MG CAPSULE. PO SCH ×2 (08:12→20:59)
[2017-03-16] MEDS: DULoxetine HCL 30 MG CAPSULE.DR PO SCH (08:13)
[2017-03-16] MEDS: TAMSULOSIN 0.4 MG CAP.ER.24H. PO SCH (08:13)
[2017-03-16] MEDS: ASPIRIN ENTERIC COATED 81 MG TABLET.DR. PO SCH (08:13)
[2017-03-16] MEDS: METOPROLOL TART IMMED RELEASE 25 MG TABLET. PO SCH ×2 (08:15→21:00)
--- NOTE | 2017-03-16 09:18 | CONS ---
DATE OF CONSULTATION: 03/15/2017 REFERRING PHYSICIAN: Dr. Bosch REASON FOR CONSULTATION: Urinary tract infection with indwelling Marley. HISTORY OF PRESENT ILLNESS: Last month, this 81-year-old male with a history of peripheral arterial disease and diabetes mellitus type 2 was hospitalized here at [facility] for right foot plantar necrotic ulcers. He had undergone excisional debridement of necrotic skin, subcutaneous tissue, fascia, tendon and bone on 02/06/2017. Intraoperative cultures grew mixed skin beau. [facility] with a wound VAC and Augmentin. According to the patient's daughter, Maegan, his foot wounds were looking good and getting smaller. He was eventually discharged home about a week and a half ago. Initially, he was doing quite well. He was walking with a walker, eating and acting fine. His daughter was very pleased with his ____ EDI DELGADO MD DR: MARIAH/vielka JOB#: [id number] / [id number]
--- NOTE | 2017-03-16 09:20 | CONS ---
DATE OF CONSULTATION: 03/15/2017 ADDENDUM DICTATED BY: Jorge Cote HISTORY OF PRESENT ILLNESS: His daughter was quite pleased with his progress. However, about 4 days ago, he was found lying on the floor between the chair and his bed, yelling, screaming and acting more confused. He had a low glucose reading of 59, which responded to a drink of pop. Since that time, he has been increasingly confused, paranoid as well as complaining of lower back pain. His daughter recalls that he had similar symptoms in the past when he developed a urinary tract infection. He has a history of benign prostate hypertrophy and urinary retention requiring indwelling Marley catheter. He has had frequent urinary tract infections occurring almost monthly. She noticed he was having hot and cold sweats without fever. His urine color was more cloudy than usual. He did not want to eat, drink, or get out of bed. He even refused his coffee something that he enjoyed very much. Recent urinalysis showed WBCs 20-40, leukocyte esterase large, nitrites negative with yeast present. Urine culture is pending. There was a concern for a recurrent UTI and was started on vancomycin and Zosyn. PAST MEDICAL HISTORY: History of E. coli urinary tract infection, benign prostate hypertrophy, urinary retention requiring indwelling Marley catheter, history of pyelonephritis, hyperlipidemia, peripheral arterial and peripheral vascular disease, history of non-STEMI, osteoarthritis, anxiety, depression, tremors, diabetes mellitus type 2 and dementia. PAST SURGICAL HISTORY: Positive for tonsillectomy as well as eye surgery. FAMILY HISTORY: Positive for congestive heart failure, Parkinson's disease and dementia. SOCIAL HISTORY: The patient is a . He is a former smoker who quit about 20 years ago. He lives at home with his daughter who is his primary care provider. ALLERGIES: No known drug allergies. MEDICATIONS: Reviewed on the DEC. Include vancomycin, Zosyn, and recent Augmentin. REVIEW OF SYSTEMS: The patient denies pain. Other review of systems is limited due to confusion. PHYSICAL EXAMINATION: GENERAL: Well-appearing male, propped up in bed, in no apparent distress. VITAL SIGNS: Temperature is 98.1, blood pressure 130/72, heart rate 70, respiratory rate 16, pulse oximetry is 95% on room air. Weight is 162 pounds. HEENT: Pupils equally round. Normal conjunctivae. Oral mucosa is pink and moist. He has missing teeth. NECK: Supple, no adenopathy present. LUNGS: Clear to auscultation. HEART: Normal S1, S2. ABDOMEN: Nondistended. Bowel sounds are present, soft, nontender. GENITOURINARY: He has a Marley in place. EXTREMITIES: No gross edema or cyanosis. SKIN: Without rash. Warm to touch. He has two plantar wounds on the right foot that appear clean without signs of infection. Refer to the chart for pictures. NEUROLOGIC: Alert, cooperative, poor historian. LABORATORY DATA: Recent WBC 9.2, hemoglobin 10.5, platelet count 181,000. Sed rate 79 from 83 on 02/04/2017. Sodium 134, potassium 4.3, creatinine 1.0, BUN 17, lactic acid 2.7, total bilirubin 0.5, AST 21, ALT 16, albumin 3.2 and recent glucose 253. Urinalysis per HPI. Urine and blood cultures are pending. Chest x-ray showed clear lungs. Right foot x-ray shows degenerative changes and a small ulcer identified in the plantar aspect of the foot. IMPRESSION: 1. Acute delirium superimposed on dementia. 2. Lactic acidosis. 3. Urinary retention requiring chronic indwelling Marley, possible catheter associated urinary tract infection present on admission. 4. Right plantar ulcers, status post debridement on 02/06/2017. 5. Diabetes mellitus type 2 with episodes of hypoglycemia. PLAN: Continue the vancomycin and Zosyn for now. Monitor WBC count, renal function and temperature. Await urine and blood culture results. Local wound care. I discussed with the patient's daughter, Maegan. Thank you, Dr. Prater for asking us to participate in this patient's care. Should you have further questions or concerns, please call. EDI DELGADO MD DR: MARIAH/vielka JOB#: [id number] / [id number]
--- NOTE | 2017-03-16 09:33 | PDOC ---
Infectious Disease Note Subjective Subjective States ol. Eating. mild pain in foot ROS ROS GEN: Denies fevers, chills, sweats HEENT: Denies blurred vision, sore throat CV: Denies chest pain RESP: Denies shortness of air, cough GI: Denies n/v/d NEURO: Denies confusion, dizziness MSK: Denies weakness Vital Sign Vital Signs Vital Signs Date Time Temp Pulse Resp B/P (MAP) Pulse Ox O2 Delivery O2 Flow Rate FiO2 03/16/17 08:15 100/53 03/16/17 07:00 97.7 92 20 97 Room Air 97.7 Physical Exam PHYSICAL EXAM GENERAL: Well-appearing male, propped up in bed, in no apparent distress. Eating. HEENT: Pupils equally round. Normal conjunctivae. Oral mucosa is pink and moist. He has missing teeth. NECK: Supple, no adenopathy present. LUNGS: Clear to auscultation. HEART: Normal S1, S2. ABDOMEN: Nondistended. Bowel sounds are present, soft, nontender. GENITOURINARY: He has a Marley in place. EXTREMITIES: No gross edema or cyanosis. SKIN: Without rash. Warm to touch. He has two plantar wounds on the right foot that appear clean without signs of infection. Refer to the chart for pictures. NEUROLOGIC: Alert, cooperative, poor historian. Labs Lab Laboratory Tests Test 03/15/17 11:31 03/15/17 16:26 03/15/17 20:10 03/16/17 03:30 Glucose (Fingerstick) 253 mg/dL (70-99) 255 mg/dL (70-99) 248 mg/dL (70-99) White Blood Count 11.3 x10^3/uL (4.0-11.0) Red Blood Count 3.31 x10^6/uL (4.30-5.70) Hemoglobin 9.4 g/dL (13.0-17.5) Hematocrit 27.6 % (39.0-53.0) Mean Corpuscular Volume 84 fL (79-100) Mean Corpuscular Hemoglobin 28 pg (25-35) Mean Corpuscular Hemoglobin Concent 34 g/dL (31-37) Red Cell Distribution Width 15.6 % (11.5-14.5) Platelet Count 147 x10^3/uL (140-400) Neutrophils (%) (Auto) 65 % (31-73) Lymphocytes (%) (Auto) 18 % (24-48) Monocytes (%) (Auto) 14 % (0-9) Eosinophils (%) (Auto) 3 % (0-3) Basophils (%) (Auto) 0 % (0-3) Neutrophils # (Auto) 7.4 x10^3uL (1.8-7.7) Lymphocytes # (Auto) 2.0 x10^3/uL (1.0-4.8) Monocytes # (Auto) 1.6 x10^3/uL (0.0-1.1) Eosinophils # (Auto) 0.3 x10^3/uL (0.0-0.7) Basophils # (Auto) 0.0 x10^3/uL (0.0-0.2) Sodium Level 133 mmol/L (136-145) Potassium Level 3.3 mmol/L (3.5-5.1) Chloride Level 99 mmol/L (98-107) Carbon Dioxide Level 25 mmol/L (21-32) Anion Gap 9 (6-14) Blood Urea Nitrogen 33 mg/dL (8-26) Creatinine 1.7 mg/dL (0.7-1.3) Estimated GFR (Cockcroft-Gault) 39.0 Glucose Level 191 mg/dL (70-99) Calcium Level 8.4 mg/dL (8.5-10.1) Vancomycin Level Trough 20.8 mcg/mL (10.0-20.0) Vancomycin Last Dose Date Unk Vancomycin Last Dose Time Unk Test 03/16/17 07:46 Glucose (Fingerstick) 82 mg/dL (70-99) Objective Assessment Acute delirium superimposed on dementia. ?hypoglycemia vs infection. Better Mild leukocytosis today ? reactive with hypoglycemia Lactic acidosis Urinary retention requiring chronic indwelling Marley. ? CAUTI -Last changed by Dr. Barajas, on the 8th Right plantar ulcers-clean DM with episodes of hypoglycemia Plan Plan of Care Continue vanc and Zosyn Monitor WBC count, renal function and temp in am Await urine and blood culture results Local wound care TOYA MAI MD March 16, 2017 09:32
[2017-03-16 11:03] VITALS: BP 134/49
[2017-03-16 15:04] VITALS: BP 132/51
--- NOTE | 2017-03-16 17:40 | PDOC ---
GENERAL General: vss and afebrile. more awake and alert today. exam stable. creatinine increased to 1.7. some hypoglycemia. await cultures with plans to follow.wound vac back on foot per wound care team oked. Problems: VITAL SIGNS Vital Signs: Vital Signs Date Time Temp Pulse Resp B/P (MAP) Pulse Ox O2 Delivery O2 Flow Rate FiO2 03/16/17 15:59 92 132/51 03/16/17 15:04 97.7 18 97 Room Air 97.7 I & O I & O Intake and Output 03/16/17 07:00 Intake Total 1640 ml Output Total 1700 ml Balance -60 ml Intake Oral 1290 ml IV Total 350 ml Output Urine Total 1700 ml # Bowel Movements 3 ALLERGIES Allergies: Allergies Coded Allergies Type Severity Reaction Last Updated Verified No Known Drug Allergies 02/06/17 No MEDS Medications: Current Medications Medications (Trade) Dose Ordered Sig/Chay Start Time Stop Time Status Last Admin Dose Admin Aspirin (Ecotrin) 81 mg DAILY08 03/15/17 08:00 03/16/17 08:13 81 MG Atorvastatin Calcium (Lipitor) 10 mg QHS 03/14/17 21:00 03/15/17 20:31 10 MG Celecoxib (CeleBREX) 200 mg BID 03/14/17 21:00 03/16/17 08:12 200 MG Dextrose (Dextrose 50%-Water Syringe) 12.5 gm PRN Q15MIN PRN 03/14/17 17:30 Duloxetine HCl (Cymbalta) 60 mg DAILY 03/15/17 09:00 03/16/17 08:13 60 MG Glimepiride (Amaryl) 4 mg DAILY08 03/15/17 08:00 03/16/17 08:12 4 MG Insulin Aspart (NovoLOG) 0-5 UNITS TIDWMEALS 03/14/17 18:00 03/15/17 16:33 4 UNITS Insulin Detemir (Levemir) 20 units QHS 03/14/17 21:00 03/15/17 20:37 20 UNITS Metoprolol Tartrate (Lopressor) 25 mg BID 03/14/17 21:00 03/15/17 09:41 25 MG Midodrine (Proamatine) 2.5 mg [id number] 03/14/17 18:00 03/16/17 15:59 2.5 MG Piperacillin Sod/ Tazobactam Sod 3.375 gm/Sodium Chloride 50 ml @ 100 mls/hr Q6HRS 03/14/17 16:00 03/16/17 11:56 100 MLS/HR Sodium Chloride 1,000 ml @ 1,000 mls/hr Q1H 03/14/17 12:38 03/14/17 13:37 DC 03/14/17 13:18 1,000 MLS/HR Tamsulosin HCl (Flomax) 0.4 mg DAILY 03/15/17 09:00 03/16/17 08:13 0.4 MG Vancomycin HCl 1 each 1X ONCE 03/17/17 16:30 03/17/17 16:31 Vancomycin HCl (Vanco Per Pharmacy) 1 each PRN DAILY PRN 03/14/17 15:15 03/16/17 15:05 1 EACH Vancomycin HCl 1.25 gm/Sodium Chloride 250 ml @ 167 mls/hr Q12H 03/15/17 04:00 03/16/17 04:46 DC 03/15/17 16:19 167 MLS/HR Vancomycin HCl 1.5 gm/Sodium Chloride 500 ml @ 250 mls/hr 1X ONCE 03/14/17 16:00 03/14/17 17:59 DC 03/14/17 16:48 250 MLS/HR Vancomycin HCl 1 gm/Sodium Chloride 250 ml @ 250 mls/hr Q18H 03/16/17 23:00 LAB Lab: Laboratory Tests Test 03/15/17 20:10 03/16/17 03:30 03/16/17 07:46 03/16/17 10:44 Glucose (Fingerstick) 248 mg/dL (70-99) 82 mg/dL (70-99) 144 mg/dL (70-99) White Blood Count 11.3 x10^3/uL (4.0-11.0) Red Blood Count 3.31 x10^6/uL (4.30-5.70) Hemoglobin 9.4 g/dL (13.0-17.5) Hematocrit 27.6 % (39.0-53.0) Mean Corpuscular Volume 84 fL (79-100) Mean Corpuscular Hemoglobin 28 pg (25-35) Mean Corpuscular Hemoglobin Concent 34 g/dL (31-37) Red Cell Distribution Width 15.6 % (11.5-14.5) Platelet Count 147 x10^3/uL (140-400) Neutrophils (%) (Auto) 65 % (31-73) Lymphocytes (%) (Auto) 18 % (24-48) Monocytes (%) (Auto) 14 % (0-9) Eosinophils (%) (Auto) 3 % (0-3) Basophils (%) (Auto) 0 % (0-3) Neutrophils # (Auto) 7.4 x10^3uL (1.8-7.7) Lymphocytes # (Auto) 2.0 x10^3/uL (1.0-4.8) Monocytes # (Auto) 1.6 x10^3/uL (0.0-1.1) Eosinophils # (Auto) 0.3 x10^3/uL (0.0-0.7) Basophils # (Auto) 0.0 x10^3/uL (0.0-0.2) Sodium Level 133 mmol/L (136-145) Potassium Level 3.3 mmol/L (3.5-5.1) Chloride Level 99 mmol/L (98-107) Carbon Dioxide Level 25 mmol/L (21-32) Anion Gap 9 (6-14) Blood Urea Nitrogen 33 mg/dL (8-26) Creatinine 1.7 mg/dL (0.7-1.3) Estimated GFR (Cockcroft-Gault) 39.0 Glucose Level 191 mg/dL (70-99) Calcium Level 8.4 mg/dL (8.5-10.1) Vancomycin Level Trough 20.8 mcg/mL (10.0-20.0) Vancomycin Last Dose Date Unk Vancomycin Last Dose Time Unk Test 03/16/17 16:44 Glucose (Fingerstick) 230 mg/dL (70-99) LUISITO RUSSELL MD March 16, 2017 17:40
[2017-03-16 19:00] VITALS: BP 106/53
[2017-03-16] MEDS: ATORVASTATIN CALCIUM 10 MG TABLET. PO SCH (20:59)
[2017-03-16] MEDS: INSULIN DETEMIR 300 UNITS/3 ML INSULN.PEN. SQ SCH (21:04)
[2017-03-16 23:00] VITALS: BP 115/60
[2017-03-17] VITALS (7 sets, daily range): BP systolic 116–145; BP diastolic 64–72
[2017-03-17] MEDS: PIPERACILLIN/TAZOBACTAM 3.375 GM in IV NORMAL SALINE 50ML 50 ML IV SCH ×2 (01:25→06:11)
[2017-03-17 04:36] LABS: BASO % 0 % (0-3); EOS % 3 % (0-3); HEMATOCRIT 26.8 % (39.0-53.0); HEMOGLOBIN 9.1 g/dL (13.0-17.5); LYMPH # 1.9 x10^3/uL (1.0-4.8); LYMPH % 19 % (24-48); MEAN CORPUSCULAR HEMOGLOBIN 29 pg (25-35); MEAN CORPUSCULAR HGB CONC 34 g/dL (31-37); MEAN CORPUSCULAR VOLUME 84 fL (79-100); MONO % 17 % (0-9); NEUT % 60 % (31-73); PLATELET COUNT 149 x10^3/uL (140-400); RED CELL DISTRIBUTION WIDTH 14.8 % (11.5-14.5); WHITE BLOOD COUNT 10.1 x10^3/uL (4.0-11.0)
[2017-03-17 05:10] LABS: CALCIUM 8.7 mg/dL (8.5-10.1); CREATININE 1.4 mg/dL (0.7-1.3); GFR 48.8; POTASSIUM 3.7 mmol/L (3.5-5.1)
[2017-03-17] MEDS: MIDODRINE 2.5 MG TABLET PO SCH ×3 (06:17→17:03)
[2017-03-17] MEDS: GLIMEPIRIDE 2 MG TABLET. PO SCH (08:00)
[2017-03-17] MEDS: INSULIN ASPART 300 UNITS/3 ML INSULN.PEN SQ SCH ×3 (08:00→16:49)
--- NOTE | 2017-03-17 08:37 | PDOC ---
Infectious Disease Note Subjective Subjective States dong well and back to normal except for loose stool Eating. Tolerating wound vac ROS ROS GEN: Denies fevers, chills, sweats HEENT: Denies blurred vision, sore throat CV: Denies chest pain RESP: Denies shortness of air, cough GI: Denies n/v/d NEURO: Denies confusion, dizziness MSK: Denies weakness, joint pain/swelling Vital Sign Vital Signs Vital Signs Date Time Temp Pulse Resp B/P (MAP) Pulse Ox O2 Delivery O2 Flow Rate FiO2 03/17/17 06:18 84 126/72 (90) 03/17/17 03:00 97.9 18 97 97.9 03/16/17 20:00 Room Air Physical Exam PHYSICAL EXAM GENERAL: Well-appearing male, propped up in bed, in no apparent distress. Eating. HEENT: Pupils equally round. Normal conjunctivae. Oral mucosa is pink and moist. He has missing teeth. NECK: Supple, no adenopathy present. LUNGS: Clear to auscultation. HEART: Normal S1, S2. ABDOMEN: Nondistended. Bowel sounds are present, soft, nontender. GENITOURINARY: He has a Marley in place. EXTREMITIES: No gross edema or cyanosis. SKIN: Without rash. Warm to touch. He has two plantar wounds on the right foot that appear clean without signs of infection. Vac NEUROLOGIC: Alert, cooperative, poor historian Labs Lab Laboratory Tests Test 03/16/17 10:44 03/16/17 16:44 03/16/17 20:37 03/17/17 04:00 Glucose (Fingerstick) 144 mg/dL (70-99) 230 mg/dL (70-99) 290 mg/dL (70-99) White Blood Count 10.1 x10^3/uL (4.0-11.0) Red Blood Count 3.20 x10^6/uL (4.30-5.70) Hemoglobin 9.1 g/dL (13.0-17.5) Hematocrit 26.8 % (39.0-53.0) Mean Corpuscular Volume 84 fL (79-100) Mean Corpuscular Hemoglobin 29 pg (25-35) Mean Corpuscular Hemoglobin Concent 34 g/dL (31-37) Red Cell Distribution Width 14.8 % (11.5-14.5) Platelet Count 149 x10^3/uL (140-400) Neutrophils (%) (Auto) 60 % (31-73) Lymphocytes (%) (Auto) 19 % (24-48) Monocytes (%) (Auto) 17 % (0-9) Eosinophils (%) (Auto) 3 % (0-3) Basophils (%) (Auto) 0 % (0-3) Neutrophils # (Auto) 6.1 x10^3uL (1.8-7.7) Lymphocytes # (Auto) 1.9 x10^3/uL (1.0-4.8) Monocytes # (Auto) 1.8 x10^3/uL (0.0-1.1) Eosinophils # (Auto) 0.3 x10^3/uL (0.0-0.7) Basophils # (Auto) 0.0 x10^3/uL (0.0-0.2) Sodium Level 139 mmol/L (136-145) Potassium Level 3.7 mmol/L (3.5-5.1) Chloride Level 104 mmol/L (98-107) Carbon Dioxide Level 26 mmol/L (21-32) Anion Gap 9 (6-14) Blood Urea Nitrogen 31 mg/dL (8-26) Creatinine 1.4 mg/dL (0.7-1.3) Estimated GFR (Cockcroft-Gault) 48.8 Glucose Level 130 mg/dL (70-99) Calcium Level 8.7 mg/dL (8.5-10.1) Test 03/17/17 07:52 Glucose (Fingerstick) 49 mg/dL (70-99) Objective Assessment Acute delirium superimposed on dementia. ?hypoglycemia vs infection. Better Mild leukocytosis today ? reactive with hypoglycemia Lactic acidosis Urinary retention requiring chronic indwelling Marley. ? CAUTI -Last changed by Dr. Barajas, on the . yeast in urine Right plantar ulcers-clean DM with episodes of hypoglycemia Plan Plan of Care Discontinue vanc and Zosyn Augmentin/Fluconazole Probiotics Monitor WBC count, renal function and temp in am Local wound care/vac D/w TOYA Coley MD March 17, 2017 08:37
--- NOTE | 2017-03-17 08:45 | PDOC ---
GENERAL General: vss and afebrile. about at mental baseline today. exam stable. ID managing antimicrobials. wound vac on foot. continue same. sugars labile which is his baseline. Problems: VITAL SIGNS Vital Signs: Vital Signs Date Time Temp Pulse Resp B/P (MAP) Pulse Ox O2 Delivery O2 Flow Rate FiO2 03/17/17 07:00 97.7 90 18 145/64 (91) 97 Room Air 97.7 I & O I & O Intake and Output 03/17/17 07:00 Intake Total 2120 ml Output Total 3300 ml Balance -1180 ml Intake Oral 1770 ml IV Total 350 ml Output Urine Total 3300 ml # Bowel Movements 5 ALLERGIES Allergies: Allergies Coded Allergies Type Severity Reaction Last Updated Verified No Known Drug Allergies 02/06/17 No MEDS Medications: Current Medications Medications (Trade) Dose Ordered Sig/Chay Start Time Stop Time Status Last Admin Dose Admin Amoxicillin/ Clavulanate Potassium (Augmentin 500/ 125mg) 1 tab BID 03/17/17 09:00 UNV Aspirin (Ecotrin) 81 mg DAILY08 03/15/17 08:00 03/16/17 08:13 81 MG Atorvastatin Calcium (Lipitor) 10 mg QHS 03/14/17 21:00 03/16/17 20:59 10 MG Celecoxib (CeleBREX) 200 mg BID 03/14/17 21:00 03/16/17 20:59 200 MG Dextrose (Dextrose 50%-Water Syringe) 12.5 gm PRN Q15MIN PRN 03/14/17 17:30 Duloxetine HCl (Cymbalta) 60 mg DAILY 03/15/17 09:00 03/16/17 08:13 60 MG Fluconazole (Diflucan) 100 mg DAILY 03/17/17 09:00 UNV Glimepiride (Amaryl) 4 mg DAILY08 03/15/17 08:00 03/16/17 08:12 4 MG Insulin Aspart (NovoLOG) 0-5 UNITS TIDWMEALS 03/14/17 18:00 03/16/17 18:00 3 UNITS Insulin Detemir (Levemir) 20 units QHS 03/14/17 21:00 03/16/17 21:04 20 UNITS Lactobacillus Acidophilus (Bacid, Emperatriz-Bid) 1 tab TIDWMEALS 03/17/17 12:00 UNV Metoprolol Tartrate (Lopressor) 25 mg BID 03/14/17 21:00 03/15/17 09:41 25 MG Midodrine (Proamatine) 2.5 mg [id number] 03/14/17 18:00 03/16/17 15:59 2.5 MG Piperacillin Sod/ Tazobactam Sod 3.375 gm/Sodium Chloride 50 ml @ 100 mls/hr Q6HRS 03/14/17 16:00 03/17/17 08:43 DC 03/17/17 06:11 100 MLS/HR Sodium Chloride 1,000 ml @ 1,000 mls/hr Q1H 03/14/17 12:38 03/14/17 13:37 DC 03/14/17 13:18 1,000 MLS/HR Tamsulosin HCl (Flomax) 0.4 mg DAILY 03/15/17 09:00 03/16/17 08:13 0.4 MG Vancomycin HCl 1 each 1X ONCE 03/17/17 16:30 03/17/17 16:31 Cancel Vancomycin HCl (Vanco Per Pharmacy) 1 each PRN DAILY PRN 03/14/17 15:15 03/17/17 08:37 DC 03/16/17 15:05 1 EACH Vancomycin HCl 1.25 gm/Sodium Chloride 250 ml @ 167 mls/hr Q12H 03/15/17 04:00 03/16/17 04:46 DC 03/15/17 16:19 167 MLS/HR Vancomycin HCl 1.5 gm/Sodium Chloride 500 ml @ 250 mls/hr 1X ONCE 03/14/17 16:00 03/14/17 17:59 DC 03/14/17 16:48 250 MLS/HR Vancomycin HCl 1 gm/Sodium Chloride 250 ml @ 250 mls/hr Q18H 03/16/17 23:00 03/17/17 08:37 DC 03/16/17 23:57 250 MLS/HR LAB Lab: Laboratory Tests Test 03/16/17 10:44 03/16/17 16:44 03/16/17 20:37 03/17/17 04:00 Glucose (Fingerstick) 144 mg/dL (70-99) 230 mg/dL (70-99) 290 mg/dL (70-99) White Blood Count 10.1 x10^3/uL (4.0-11.0) Red Blood Count 3.20 x10^6/uL (4.30-5.70) Hemoglobin 9.1 g/dL (13.0-17.5) Hematocrit 26.8 % (39.0-53.0) Mean Corpuscular Volume 84 fL (79-100) Mean Corpuscular Hemoglobin 29 pg (25-35) Mean Corpuscular Hemoglobin Concent 34 g/dL (31-37) Red Cell Distribution Width 14.8 % (11.5-14.5) Platelet Count 149 x10^3/uL (140-400) Neutrophils (%) (Auto) 60 % (31-73) Lymphocytes (%) (Auto) 19 % (24-48) Monocytes (%) (Auto) 17 % (0-9) Eosinophils (%) (Auto) 3 % (0-3) Basophils (%) (Auto) 0 % (0-3) Neutrophils # (Auto) 6.1 x10^3uL (1.8-7.7) Lymphocytes # (Auto) 1.9 x10^3/uL (1.0-4.8) Monocytes # (Auto) 1.8 x10^3/uL (0.0-1.1) Eosinophils # (Auto) 0.3 x10^3/uL (0.0-0.7) Basophils # (Auto) 0.0 x10^3/uL (0.0-0.2) Sodium Level 139 mmol/L (136-145) Potassium Level 3.7 mmol/L (3.5-5.1) Chloride Level 104 mmol/L (98-107) Carbon Dioxide Level 26 mmol/L (21-32) Anion Gap 9 (6-14) Blood Urea Nitrogen 31 mg/dL (8-26) Creatinine 1.4 mg/dL (0.7-1.3) Estimated GFR (Cockcroft-Gault) 48.8 Glucose Level 130 mg/dL (70-99) Calcium Level 8.7 mg/dL (8.5-10.1) Test 03/17/17 07:52 Glucose (Fingerstick) 49 mg/dL (70-99) LUISITO RUSSELL MD March 17, 2017 08:45
[2017-03-17] MEDS: FLUCONAZOLE 100 MG TABLET. PO SCH (09:24)
[2017-03-17] MEDS: CELECOXIB 200 MG CAPSULE. PO SCH ×2 (09:25→21:23)
[2017-03-17] MEDS: METOPROLOL TART IMMED RELEASE 25 MG TABLET. PO SCH ×2 (09:25→21:26)
[2017-03-17] MEDS: TAMSULOSIN 0.4 MG CAP.ER.24H. PO SCH (09:25)
[2017-03-17] MEDS: DULoxetine HCL 30 MG CAPSULE.DR PO SCH (09:25)
[2017-03-17] MEDS: AMOXICILLIN/K CLAV 500/125MG TABLET. PO SCH ×2 (09:25→21:22)
[2017-03-17] MEDS: ASPIRIN ENTERIC COATED 81 MG TABLET.DR. PO SCH (09:25)
[2017-03-17] MEDS: LACTOBACILLUS ACIDOPH & BULGAR 1 TABLET. PO SCH ×2 (12:23→17:03)
[2017-03-17] MEDS: ATORVASTATIN CALCIUM 10 MG TABLET. PO SCH (21:22)
[2017-03-17] MEDS: INSULIN DETEMIR 300 UNITS/3 ML INSULN.PEN. SQ SCH (21:24)
[2017-03-18] VITALS (7 sets, daily range): BP systolic 120–131; BP diastolic 59–73
[2017-03-18 04:57] LABS: BASO % 0 % (0-3); EOS % 3 % (0-3); HEMOGLOBIN 9.1 g/dL (13.0-17.5); LYMPH # 2.5 x10^3/uL (1.0-4.8); LYMPH % 25 % (24-48); MEAN CORPUSCULAR HEMOGLOBIN 28 pg (25-35); MEAN CORPUSCULAR HGB CONC 33 g/dL (31-37); MEAN CORPUSCULAR VOLUME 85 fL (79-100); MONO % 18 % (0-9); NEUT % 53 % (31-73); PLATELET COUNT 173 x10^3/uL (140-400); WHITE BLOOD COUNT 9.8 x10^3/uL (4.0-11.0)
[2017-03-18 05:12] LABS: CALCIUM 8.7 mg/dL (8.5-10.1); GFR 71.9; POTASSIUM 3.3 mmol/L (3.5-5.1)
[2017-03-18] MEDS: MIDODRINE 2.5 MG TABLET PO SCH ×3 (06:19→17:09)
[2017-03-18 07:01] LABS: % EOS 2 % (0-5)
[2017-03-18 07:02] LABS: PLT ESTIMATE ADEQUATE (ADEQUATE)
[2017-03-18] MEDS: INSULIN ASPART 300 UNITS/3 ML INSULN.PEN SQ SCH ×3 (08:00→17:00)
[2017-03-18] MEDS: FLUCONAZOLE 100 MG TABLET. PO SCH (08:51)
[2017-03-18] MEDS: LACTOBACILLUS ACIDOPH & BULGAR 1 TABLET. PO SCH ×3 (08:51→17:09)
[2017-03-18] MEDS: AMOXICILLIN/K CLAV 500/125MG TABLET. PO SCH ×2 (08:51→21:54)
[2017-03-18] MEDS: ASPIRIN ENTERIC COATED 81 MG TABLET.DR. PO SCH (08:51)
[2017-03-18] MEDS: CELECOXIB 200 MG CAPSULE. PO SCH ×2 (08:51→21:54)
[2017-03-18] MEDS: METOPROLOL TART IMMED RELEASE 25 MG TABLET. PO SCH ×2 (08:52→21:54)
[2017-03-18] MEDS: DULoxetine HCL 30 MG CAPSULE.DR PO SCH (08:52)
[2017-03-18] MEDS: TAMSULOSIN 0.4 MG CAP.ER.24H. PO SCH (08:52)
[2017-03-18] MEDS: GLIMEPIRIDE 2 MG TABLET. PO SCH (08:52)
--- NOTE | 2017-03-18 08:53 | PDOC ---
Infectious Disease Note Subjective Subjective States dong well and back to normal Stools are better ROS ROS GEN: Denies fevers, chills, sweats HEENT: Denies blurred vision, sore throat CV: Denies chest pain RESP: Denies shortness of air, cough GI: Denies n/v/d NEURO: Denies confusion, dizziness MSK: Denies weakness, joint pain/swelling Vital Sign Vital Signs Vital Signs Date Time Temp Pulse Resp B/P (MAP) Pulse Ox O2 Delivery O2 Flow Rate FiO2 03/18/17 06:19 88 128/73 03/18/17 03:00 98.2 16 96 98.2 03/17/17 20:00 Room Air Physical Exam PHYSICAL EXAM GENERAL: Well-appearing male, propped up on side of bed, in no apparent distress. Getting ready to eat HEENT: Pupils equally round. Normal conjunctivae. Oral mucosa is pink and moist. He has missing teeth. NECK: Supple, no adenopathy present. LUNGS: Clear to auscultation. HEART: Normal S1, S2. ABDOMEN: Nondistended. Bowel sounds are present, soft, nontender. GENITOURINARY: He has a Marley in place. EXTREMITIES: No gross edema or cyanosis. SKIN: Without rash. Warm to touch. He has Vac to foot and is clean NEUROLOGIC: Alert, cooperative, poor historian Labs Lab Laboratory Tests Test 03/17/17 10:52 03/17/17 16:12 03/17/17 21:16 03/18/17 04:00 Glucose (Fingerstick) 141 mg/dL (70-99) 144 mg/dL (70-99) 178 mg/dL (70-99) White Blood Count 9.8 x10^3/uL (4.0-11.0) Red Blood Count 3.30 x10^6/uL (4.30-5.70) Hemoglobin 9.1 g/dL (13.0-17.5) Hematocrit 28.0 % (39.0-53.0) Mean Corpuscular Volume 85 fL (79-100) Mean Corpuscular Hemoglobin 28 pg (25-35) Mean Corpuscular Hemoglobin Concent 33 g/dL (31-37) Red Cell Distribution Width 15.0 % (11.5-14.5) Platelet Count 173 x10^3/uL (140-400) Neutrophils (%) (Auto) 53 % (31-73) Lymphocytes (%) (Auto) 25 % (24-48) Monocytes (%) (Auto) 18 % (0-9) Eosinophils (%) (Auto) 3 % (0-3) Basophils (%) (Auto) 0 % (0-3) Neutrophils # (Auto) 5.2 x10^3uL (1.8-7.7) Lymphocytes # (Auto) 2.5 x10^3/uL (1.0-4.8) Monocytes # (Auto) 1.8 x10^3/uL (0.0-1.1) Eosinophils # (Auto) 0.3 x10^3/uL (0.0-0.7) Basophils # (Auto) 0.0 x10^3/uL (0.0-0.2) Segmented Neutrophils % 41 % (35-66) Band Neutrophils % 7 % (0-9) Lymphocytes % 34 % (24-48) Monocytes % 16 % (0-10) Eosinophils % 2 % (0-5) Platelet Estimate Adequate (ADEQUATE) Sodium Level 138 mmol/L (136-145) Potassium Level 3.3 mmol/L (3.5-5.1) Chloride Level 104 mmol/L (98-107) Carbon Dioxide Level 27 mmol/L (21-32) Anion Gap 7 (6-14) Blood Urea Nitrogen 22 mg/dL (8-26) Creatinine 1.0 mg/dL (0.7-1.3) Estimated GFR (Cockcroft-Gault) 71.9 Glucose Level 49 mg/dL (70-99) Calcium Level 8.7 mg/dL (8.5-10.1) Test 03/18/17 04:16 03/18/17 04:28 03/18/17 04:59 03/18/17 07:55 Glucose (Fingerstick) 49 mg/dL (70-99) 53 mg/dL (70-99) 93 mg/dL (70-99) 141 mg/dL (70-99) Objective Assessment Acute delirium superimposed on dementia. ?hypoglycemia vs infection. Better Mild leukocytosis today ? reactive with hypoglycemia Lactic acidosis Urinary retention requiring chronic indwelling Marley. ? CAUTI -Last changed by Dr. Barajas, on the . yeast in urine Right plantar ulcers-clean DM with episodes of hypoglycemia Plan Plan of Care Cont Augmentin/Fluconazole for 6 more days Probiotics Ok to d/c home TOYA MAI MD March 18, 2017 08:53
--- NOTE | 2017-03-18 16:58 | PDOC ---
GENERAL General: vss and afebrile. much more lucid when I saw this am but just got call from daughter saying he was more confused this pm. ID help appreciated and plans noted. creatinine back down to 1.0 with ARF resolved. K+ 3.3. hypoglycemic again this am and will decrease dose long acting insulin a little. Snu eval if appropriate. Problems: VITAL SIGNS Vital Signs: Vital Signs Date Time Temp Pulse Resp B/P (MAP) Pulse Ox O2 Delivery O2 Flow Rate FiO2 03/18/17 13:37 80 131/69 03/18/17 09:44 97.8 20 99 Room Air 97.8 I & O I & O Intake and Output 03/18/17 07:00 Intake Total 740 ml Output Total 1250 ml Balance -510 ml Intake Oral 740 ml Output Urine Total 1250 ml # Voids 1 # Bowel Movements 5 ALLERGIES Allergies: Allergies Coded Allergies Type Severity Reaction Last Updated Verified No Known Drug Allergies 02/06/17 No MEDS Medications: Current Medications Medications (Trade) Dose Ordered Sig/Chay Start Time Stop Time Status Last Admin Dose Admin Amoxicillin/ Clavulanate Potassium (Augmentin 500/ 125mg) 1 tab BID 03/17/17 09:00 03/18/17 08:51 1 TAB Aspirin (Ecotrin) 81 mg DAILY08 03/15/17 08:00 03/18/17 08:51 81 MG Atorvastatin Calcium (Lipitor) 10 mg QHS 03/14/17 21:00 03/17/17 21:22 10 MG Celecoxib (CeleBREX) 200 mg BID 03/14/17 21:00 03/18/17 08:51 200 MG Dextrose (Dextrose 50%-Water Syringe) 12.5 gm PRN Q15MIN PRN 03/14/17 17:30 Duloxetine HCl (Cymbalta) 60 mg DAILY 03/15/17 09:00 03/18/17 08:52 60 MG Fluconazole (Diflucan) 100 mg DAILY 03/17/17 09:00 03/18/17 08:51 100 MG Glimepiride (Amaryl) 4 mg DAILY08 03/15/17 08:00 03/18/17 08:52 4 MG Insulin Aspart (NovoLOG) 0-5 UNITS TIDWMEALS 03/14/17 18:00 03/16/17 18:00 3 UNITS Insulin Detemir (Levemir) 20 units QHS 03/14/17 21:00 03/17/17 21:24 20 UNITS Lactobacillus Acidophilus (Bacid, Emperatriz-Bid) 1 tab TIDWMEALS 03/17/17 12:00 03/18/17 13:37 1 TAB Metoprolol Tartrate (Lopressor) 25 mg BID 03/14/17 21:00 03/18/17 08:52 25 MG Midodrine (Proamatine) 2.5 mg [id number] 03/14/17 18:00 03/18/17 13:37 2.5 MG Piperacillin Sod/ Tazobactam Sod 3.375 gm/Sodium Chloride 50 ml @ 100 mls/hr Q6HRS 03/14/17 16:00 03/17/17 08:43 DC 03/17/17 06:11 100 MLS/HR Sodium Chloride 1,000 ml @ 1,000 mls/hr Q1H 03/14/17 12:38 03/14/17 13:37 DC 03/14/17 13:18 1,000 MLS/HR Tamsulosin HCl (Flomax) 0.4 mg DAILY 03/15/17 09:00 03/18/17 08:52 0.4 MG Vancomycin HCl 1 each 1X ONCE 03/17/17 16:30 03/17/17 16:31 Cancel Vancomycin HCl (Vanco Per Pharmacy) 1 each PRN DAILY PRN 03/14/17 15:15 03/17/17 08:37 DC 03/16/17 15:05 1 EACH Vancomycin HCl 1.25 gm/Sodium Chloride 250 ml @ 167 mls/hr Q12H 03/15/17 04:00 03/16/17 04:46 DC 03/15/17 16:19 167 MLS/HR Vancomycin HCl 1.5 gm/Sodium Chloride 500 ml @ 250 mls/hr 1X ONCE 03/14/17 16:00 03/14/17 17:59 DC 03/14/17 16:48 250 MLS/HR Vancomycin HCl 1 gm/Sodium Chloride 250 ml @ 250 mls/hr Q18H 03/16/17 23:00 03/17/17 08:37 DC 03/16/17 23:57 250 MLS/HR LAB Lab: Laboratory Tests Test 03/17/17 21:16 03/18/17 04:00 03/18/17 04:16 03/18/17 04:28 Glucose (Fingerstick) 178 mg/dL (70-99) 49 mg/dL (70-99) 53 mg/dL (70-99) White Blood Count 9.8 x10^3/uL (4.0-11.0) Red Blood Count 3.30 x10^6/uL (4.30-5.70) Hemoglobin 9.1 g/dL (13.0-17.5) Hematocrit 28.0 % (39.0-53.0) Mean Corpuscular Volume 85 fL (79-100) Mean Corpuscular Hemoglobin 28 pg (25-35) Mean Corpuscular Hemoglobin Concent 33 g/dL (31-37) Red Cell Distribution Width 15.0 % (11.5-14.5) Platelet Count 173 x10^3/uL (140-400) Neutrophils (%) (Auto) 53 % (31-73) Lymphocytes (%) (Auto) 25 % (24-48) Monocytes (%) (Auto) 18 % (0-9) Eosinophils (%) (Auto) 3 % (0-3) Basophils (%) (Auto) 0 % (0-3) Neutrophils # (Auto) 5.2 x10^3uL (1.8-7.7) Lymphocytes # (Auto) 2.5 x10^3/uL (1.0-4.8) Monocytes # (Auto) 1.8 x10^3/uL (0.0-1.1) Eosinophils # (Auto) 0.3 x10^3/uL (0.0-0.7) Basophils # (Auto) 0.0 x10^3/uL (0.0-0.2) Segmented Neutrophils % 41 % (35-66) Band Neutrophils % 7 % (0-9) Lymphocytes % 34 % (24-48) Monocytes % 16 % (0-10) Eosinophils % 2 % (0-5) Platelet Estimate Adequate (ADEQUATE) Sodium Level 138 mmol/L (136-145) Potassium Level 3.3 mmol/L (3.5-5.1) Chloride Level 104 mmol/L (98-107) Carbon Dioxide Level 27 mmol/L (21-32) Anion Gap 7 (6-14) Blood Urea Nitrogen 22 mg/dL (8-26) Creatinine 1.0 mg/dL (0.7-1.3) Estimated GFR (Cockcroft-Gault) 71.9 Glucose Level 49 mg/dL (70-99) Calcium Level 8.7 mg/dL (8.5-10.1) Test 03/18/17 04:59 03/18/17 07:55 03/18/17 11:27 Glucose (Fingerstick) 93 mg/dL (70-99) 141 mg/dL (70-99) 126 mg/dL (70-99) LUISITO RUSSELL MD March 18, 2017 16:58
[2017-03-18] MEDS: ATORVASTATIN CALCIUM 10 MG TABLET. PO SCH (21:54)
[2017-03-18] MEDS: INSULIN DETEMIR 300 UNITS/3 ML INSULN.PEN. SQ SCH (22:07)
[2017-03-19 07:00] VITALS: BP 131/69
[2017-03-19] MEDS: INSULIN ASPART 300 UNITS/3 ML INSULN.PEN SQ SCH ×3 (08:00→16:46)
[2017-03-19] MEDS: TAMSULOSIN 0.4 MG CAP.ER.24H. PO SCH (08:23)
[2017-03-19] MEDS: AMOXICILLIN/K CLAV 500/125MG TABLET. PO SCH ×2 (08:23→20:49)
[2017-03-19] MEDS: METOPROLOL TART IMMED RELEASE 25 MG TABLET. PO SCH ×2 (08:24→20:50)
[2017-03-19] MEDS: GLIMEPIRIDE 2 MG TABLET. PO SCH (08:24)
[2017-03-19] MEDS: FLUCONAZOLE 100 MG TABLET. PO SCH (08:24)
[2017-03-19] MEDS: ASPIRIN ENTERIC COATED 81 MG TABLET.DR. PO SCH (08:24)
[2017-03-19] MEDS: DULoxetine HCL 30 MG CAPSULE.DR PO SCH (08:24)
[2017-03-19] MEDS: CELECOXIB 200 MG CAPSULE. PO SCH ×2 (08:24→20:49)
[2017-03-19] MEDS: MIDODRINE 2.5 MG TABLET PO SCH ×3 (08:25→17:42)
[2017-03-19] MEDS: LACTOBACILLUS ACIDOPH & BULGAR 1 TABLET. PO SCH ×3 (08:25→16:42)
[2017-03-19 11:00] VITALS: BP 114/60
--- NOTE | 2017-03-19 14:57 | PDOC ---
GENERAL General: vss and afebrile. awake and alert and not at his baseline this am with some confusion. sugars better with adjustment of insulin. ESR>70. exam stable. believe he is better served at snu at ut with wound care needed, weakness, and confusion. Problems: VITAL SIGNS Vital Signs: Vital Signs Date Time Temp Pulse Resp B/P (MAP) Pulse Ox O2 Delivery O2 Flow Rate FiO2 03/19/17 11:47 79 131/69 03/19/17 11:00 97.4 20 97 97.4 03/19/17 07:00 Room Air I & O I & O Intake and Output 03/19/17 07:00 Intake Total 440 ml Output Total 900 ml Balance -460 ml Intake Oral 440 ml Output Urine Total 900 ml # Bowel Movements 3 ALLERGIES Allergies: Allergies Coded Allergies Type Severity Reaction Last Updated Verified No Known Drug Allergies 02/06/17 No MEDS Medications: Current Medications Medications (Trade) Dose Ordered Sig/Chay Start Time Stop Time Status Last Admin Dose Admin Amoxicillin/ Clavulanate Potassium (Augmentin 500/ 125mg) 1 tab BID 03/17/17 09:00 03/19/17 08:23 1 TAB Aspirin (Ecotrin) 81 mg DAILY08 03/15/17 08:00 03/19/17 08:24 81 MG Atorvastatin Calcium (Lipitor) 10 mg QHS 03/14/17 21:00 03/18/17 21:54 10 MG Celecoxib (CeleBREX) 200 mg BID 03/14/17 21:00 03/19/17 08:24 200 MG Dextrose (Dextrose 50%-Water Syringe) 12.5 gm PRN Q15MIN PRN 03/14/17 17:30 Duloxetine HCl (Cymbalta) 60 mg DAILY 03/15/17 09:00 03/19/17 08:24 60 MG Fluconazole (Diflucan) 100 mg DAILY 03/17/17 09:00 03/19/17 08:24 100 MG Glimepiride (Amaryl) 4 mg DAILY08 03/15/17 08:00 03/19/17 08:24 4 MG Insulin Aspart (NovoLOG) 0-5 UNITS TIDWMEALS 03/14/17 18:00 03/19/17 11:53 3 UNITS Insulin Detemir (Levemir) 15 units QHS 03/18/17 21:00 03/18/17 22:07 15 UNITS Lactobacillus Acidophilus (Bacid, Emperatriz-Bid) 1 tab TIDWMEALS 03/17/17 12:00 03/19/17 11:46 1 TAB Metoprolol Tartrate (Lopressor) 25 mg BID 03/14/17 21:00 03/19/17 08:24 25 MG Midodrine (Proamatine) 2.5 mg [id number] 03/14/17 18:00 03/19/17 11:47 2.5 MG Piperacillin Sod/ Tazobactam Sod 3.375 gm/Sodium Chloride 50 ml @ 100 mls/hr Q6HRS 03/14/17 16:00 03/17/17 08:43 DC 03/17/17 06:11 100 MLS/HR Sodium Chloride 1,000 ml @ 1,000 mls/hr Q1H 03/14/17 12:38 03/14/17 13:37 DC 03/14/17 13:18 1,000 MLS/HR Tamsulosin HCl (Flomax) 0.4 mg DAILY 03/15/17 09:00 03/19/17 08:23 0.4 MG Vancomycin HCl 1 each 1X ONCE 03/17/17 16:30 03/17/17 16:31 Cancel Vancomycin HCl (Vanco Per Pharmacy) 1 each PRN DAILY PRN 03/14/17 15:15 03/17/17 08:37 DC 03/16/17 15:05 1 EACH Vancomycin HCl 1.25 gm/Sodium Chloride 250 ml @ 167 mls/hr Q12H 03/15/17 04:00 03/16/17 04:46 DC 03/15/17 16:19 167 MLS/HR Vancomycin HCl 1.5 gm/Sodium Chloride 500 ml @ 250 mls/hr 1X ONCE 03/14/17 16:00 03/14/17 17:59 DC 03/14/17 16:48 250 MLS/HR Vancomycin HCl 1 gm/Sodium Chloride 250 ml @ 250 mls/hr Q18H 03/16/17 23:00 03/17/17 08:37 DC 03/16/17 23:57 250 MLS/HR LAB Lab: Laboratory Tests Test 03/18/17 17:01 03/18/17 20:35 03/19/17 07:08 5/18/17 11:13 Glucose (Fingerstick) 140 mg/dL (70-99) 209 mg/dL (70-99) 111 mg/dL (70-99) 233 mg/dL (70-99) Test 03/19/17 11:18 Glucose (Fingerstick) 240 mg/dL (70-99) LUISITO RUSSELL MD March 19, 2017 14:57
[2017-03-19 15:00] VITALS: BP 116/70
[2017-03-19 19:00] VITALS: BP 129/75
[2017-03-19] MEDS: ATORVASTATIN CALCIUM 10 MG TABLET. PO SCH (20:49)
[2017-03-19] MEDS: INSULIN DETEMIR 300 UNITS/3 ML INSULN.PEN. SQ SCH (20:54)
[2017-03-19 22:50] VITALS: BP 132/69
[2017-03-20 02:46] VITALS: BP 140/75
[2017-03-20] MEDS: MIDODRINE 2.5 MG TABLET PO SCH ×3 (05:55→18:14)
[2017-03-20 07:00] VITALS: BP 115/64
[2017-03-20] MEDS: INSULIN ASPART 300 UNITS/3 ML INSULN.PEN SQ SCH ×3 (08:00→17:50)
--- NOTE | 2017-03-20 08:20 | PDOC ---
GENERAL General: vss and afebrile. hypoglycemia again this am with decreased insulin doses. chest clear and heart regular. still not mentally at baseline but better. foot with wound vac in place. therapy eval today with snu later if approved. otherwise same. Problems: VITAL SIGNS Vital Signs: Vital Signs Date Time Temp Pulse Resp B/P (MAP) Pulse Ox O2 Delivery O2 Flow Rate FiO2 03/20/17 05:55 75 119/81 03/20/17 02:46 98.7 16 96 Room Air 98.7 I & O I & O Intake and Output 03/20/17 07:00 Intake Total 2400 ml Output Total 2700 ml Balance -300 ml Intake Oral 2400 ml Output Urine Total 2700 ml # Bowel Movements 3 ALLERGIES Allergies: Allergies Coded Allergies Type Severity Reaction Last Updated Verified No Known Drug Allergies 02/06/17 No MEDS Medications: Current Medications Medications (Trade) Dose Ordered Sig/Chay Start Time Stop Time Status Last Admin Dose Admin Amoxicillin/ Clavulanate Potassium (Augmentin 500/ 125mg) 1 tab BID 03/17/17 09:00 03/19/17 20:49 1 TAB Aspirin (Ecotrin) 81 mg DAILY08 03/15/17 08:00 03/19/17 08:24 81 MG Atorvastatin Calcium (Lipitor) 10 mg QHS 03/14/17 21:00 03/19/17 20:49 10 MG Celecoxib (CeleBREX) 200 mg BID 03/14/17 21:00 03/19/17 20:49 200 MG Dextrose (Dextrose 50%-Water Syringe) 12.5 gm PRN Q15MIN PRN 03/14/17 17:30 Duloxetine HCl (Cymbalta) 60 mg DAILY 03/15/17 09:00 03/19/17 08:24 60 MG Fluconazole (Diflucan) 100 mg DAILY 03/17/17 09:00 03/19/17 08:24 100 MG Glimepiride (Amaryl) 4 mg DAILY08 03/15/17 08:00 03/19/17 08:24 4 MG Insulin Aspart (NovoLOG) 0-5 UNITS TIDWMEALS 03/14/17 18:00 03/19/17 16:46 2 UNITS Insulin Detemir (Levemir) 15 units QHS 03/18/17 21:00 03/19/17 20:54 15 UNITS Lactobacillus Acidophilus (Bacid, Emperatriz-Bid) 1 tab TIDWMEALS 03/17/17 12:00 03/19/17 16:42 1 TAB Metoprolol Tartrate (Lopressor) 25 mg BID 03/14/17 21:00 03/19/17 20:50 25 MG Midodrine (Proamatine) 2.5 mg [id number] 03/14/17 18:00 03/20/17 05:55 2.5 MG Piperacillin Sod/ Tazobactam Sod 3.375 gm/Sodium Chloride 50 ml @ 100 mls/hr Q6HRS 03/14/17 16:00 03/17/17 08:43 DC 03/17/17 06:11 100 MLS/HR Sodium Chloride 1,000 ml @ 1,000 mls/hr Q1H 03/14/17 12:38 03/14/17 13:37 DC 03/14/17 13:18 1,000 MLS/HR Tamsulosin HCl (Flomax) 0.4 mg DAILY 03/15/17 09:00 03/19/17 08:23 0.4 MG Vancomycin HCl 1 each 1X ONCE 03/17/17 16:30 03/17/17 16:31 Cancel Vancomycin HCl (Vanco Per Pharmacy) 1 each PRN DAILY PRN 03/14/17 15:15 03/17/17 08:37 DC 03/16/17 15:05 1 EACH Vancomycin HCl 1.25 gm/Sodium Chloride 250 ml @ 167 mls/hr Q12H 03/15/17 04:00 03/16/17 04:46 DC 03/15/17 16:19 167 MLS/HR Vancomycin HCl 1.5 gm/Sodium Chloride 500 ml @ 250 mls/hr 1X ONCE 03/14/17 16:00 03/14/17 17:59 DC 03/14/17 16:48 250 MLS/HR Vancomycin HCl 1 gm/Sodium Chloride 250 ml @ 250 mls/hr Q18H 03/16/17 23:00 03/17/17 08:37 DC 03/16/17 23:57 250 MLS/HR LAB Lab: Laboratory Tests Test 03/19/17 11:13 03/19/17 11:18 03/19/17 16:05 03/19/17 20:42 Glucose (Fingerstick) 233 mg/dL (70-99) 240 mg/dL (70-99) 180 mg/dL (70-99) 238 mg/dL (70-99) Test 03/20/17 05:47 03/20/17 06:23 03/20/17 06:55 Glucose (Fingerstick) 36 mg/dL (70-99) 52 mg/dL (70-99) 108 mg/dL (70-99) LUISITO RUSSELL MD March 20, 2017 08:20
[2017-03-20] MEDS: CELECOXIB 200 MG CAPSULE. PO SCH ×2 (09:57→22:02)
[2017-03-20] MEDS: DULoxetine HCL 30 MG CAPSULE.DR PO SCH (09:58)
[2017-03-20] MEDS: METOPROLOL TART IMMED RELEASE 25 MG TABLET. PO SCH ×2 (09:58→22:03)
[2017-03-20] MEDS: LACTOBACILLUS ACIDOPH & BULGAR 1 TABLET. PO SCH ×3 (09:58→17:46)
[2017-03-20] MEDS: ASPIRIN ENTERIC COATED 81 MG TABLET.DR. PO SCH (09:58)
[2017-03-20] MEDS: TAMSULOSIN 0.4 MG CAP.ER.24H. PO SCH (09:58)
[2017-03-20] MEDS: GLIMEPIRIDE 2 MG TABLET. PO SCH (09:59)
[2017-03-20] MEDS: FLUCONAZOLE 100 MG TABLET. PO SCH (09:59)
[2017-03-20] MEDS: AMOXICILLIN/K CLAV 500/125MG TABLET. PO SCH ×2 (09:59→22:02)
[2017-03-20 11:00] VITALS: BP 126/70
[2017-03-20 14:59] VITALS: BP 134/72
[2017-03-20 19:00] VITALS: BP 129/72
[2017-03-20] MEDS: ATORVASTATIN CALCIUM 10 MG TABLET. PO SCH (22:02)
[2017-03-20] MEDS: INSULIN DETEMIR 300 UNITS/3 ML INSULN.PEN. SQ SCH (22:07)
[2017-03-20 23:00] VITALS: BP 139/76
[2017-03-21 03:00] VITALS: BP 129/73
[2017-03-21] MEDS: MIDODRINE 2.5 MG TABLET PO SCH ×3 (06:45→17:13)
[2017-03-21 07:00] VITALS: BP 140/76
[2017-03-21] MEDS ORDERED: IV DEXTROSE 5% 250 ML IV ONE (07:45)
[2017-03-21] MEDS: INSULIN ASPART 300 UNITS/3 ML INSULN.PEN SQ SCH ×3 (08:00→17:14)
[2017-03-21] MEDS: AMOXICILLIN/K CLAV 500/125MG TABLET. PO SCH (09:35)
[2017-03-21] MEDS: LACTOBACILLUS ACIDOPH & BULGAR 1 TABLET. PO SCH ×3 (09:35→17:13)
[2017-03-21] MEDS: FLUCONAZOLE 100 MG TABLET. PO SCH (09:35)
[2017-03-21] MEDS: ASPIRIN ENTERIC COATED 81 MG TABLET.DR. PO SCH (09:35)
[2017-03-21] MEDS: CELECOXIB 200 MG CAPSULE. PO SCH ×2 (09:36→20:38)
[2017-03-21] MEDS: GLIMEPIRIDE 2 MG TABLET. PO SCH (09:36)
[2017-03-21] MEDS: TAMSULOSIN 0.4 MG CAP.ER.24H. PO SCH (09:36)
[2017-03-21] MEDS: DULoxetine HCL 30 MG CAPSULE.DR PO SCH (09:36)
[2017-03-21] MEDS: METOPROLOL TART IMMED RELEASE 25 MG TABLET. PO SCH ×3 (09:37→21:00)
[2017-03-21 11:00] VITALS: BP 130/74
--- NOTE | 2017-03-21 11:16 | PDOC ---
SUBJECTIVE Subjective having diarrhea , suspect C.Diff sample was sent off, more hypoglycemia this AM will stop glimipiride OBJECTIVE Vital Signs Vital Signs Date Time Temp Pulse Resp B/P (MAP) Pulse Ox O2 Delivery O2 Flow Rate FiO2 03/21/17 09:37 77 140/76 03/21/17 08:00 Room Air 03/21/17 07:00 98.2 77 22 140/76 (97) 96 Room Air 98.2 03/21/17 06:45 95 129/73 03/21/17 03:00 98.1 95 21 129/73 (91) 95 Room Air 98.1 03/20/17 23:00 98.4 96 17 139/76 (97) 97 Room Air 98.4 03/20/17 22:03 88 129/72 03/20/17 20:12 Room Air 03/20/17 19:00 98.4 88 17 129/72 (91) 96 Room Air 98.4 03/20/17 18:14 91 142/69 03/20/17 14:59 98.4 76 22 134/72 (92) 98 Room Air 98.4 03/20/17 12:29 72 126/70 I & O Intake and Output 03/21/17 07:00 Intake Total 2880 ml Output Total 1450 ml Balance 1430 ml Intake Oral 2880 ml Output Urine Total 1450 ml # Voids 2 # Bowel Movements 3 PHYSICAL EXAM Physical Exam lungs clear heart RRR abd soft ext no edema alcaraz in place ASSESSMENT/PLAN Assessment/Plan 1- Diarrhea possible c.diff agg flagyl , stop Augmentin, sample pending 2-hypogl;ycemia will D/C glimipiride check kidney function again 3-Acute delirium superimposed on dementia. Better 4- Urinary retention requiring chronic indwelling Alcaraz. ? CAUTI -Last changed by Dr. Barajas, on the . yeast in urine 5- Right plantar ulcers-clean wound vac in place discussed care with RN Problems: COMMENT Lab Laboratory Tests Test 03/20/17 16:52 03/20/17 21:13 03/21/17 07:20 03/21/17 07:21 Glucose (Fingerstick) 232 mg/dL (70-99) 255 mg/dL (70-99) 28 mg/dL (70-99) 32 mg/dL (70-99) Test 03/21/17 07:32 03/21/17 07:46 03/21/17 08:14 03/21/17 08:28 Glucose (Fingerstick) 32 mg/dL (70-99) 44 mg/dL (70-99) 75 mg/dL (70-99) 102 mg/dL (70-99) ARTEMIO BRICENO MD March 21, 2017 11:15
[2017-03-21] MEDS: metroNIDAZOLE 500 MG TABLET PO SCH ×2 (11:45→20:37)
[2017-03-21 15:00] VITALS: BP 138/79
[2017-03-21 19:49] VITALS: BP 124/23
[2017-03-21] MEDS: ATORVASTATIN CALCIUM 10 MG TABLET. PO SCH (20:37)
[2017-03-21] MEDS: INSULIN DETEMIR 300 UNITS/3 ML INSULN.PEN. SQ SCH (20:49)
[2017-03-21 23:13] VITALS: BP 128/72
[2017-03-22 03:17] VITALS: BP 105/53
[2017-03-22 05:17] LABS: HEMATOCRIT 26.6 % (39.0-53.0); HEMOGLOBIN 8.6 g/dL (13.0-17.5); RED BLOOD COUNT 3.2 x10^6/uL (4.30-5.70); RED CELL DISTRIBUTION WIDTH 15.2 % (11.5-14.5); WHITE BLOOD COUNT 13.6 x10^3/uL (4.0-11.0)
[2017-03-22 05:31] LABS: CALCIUM 8.4 mg/dL (8.5-10.1); CREATININE 0.9 mg/dL (0.7-1.3); GFR 81.2
[2017-03-22] MEDS: metroNIDAZOLE 500 MG TABLET PO SCH ×3 (06:22→21:51)
[2017-03-22] MEDS: MIDODRINE 2.5 MG TABLET PO SCH ×3 (06:23→17:30)
[2017-03-22 07:00] VITALS: BP 116/66
[2017-03-22] MEDS: INSULIN ASPART 300 UNITS/3 ML INSULN.PEN SQ SCH ×3 (08:00→17:29)
[2017-03-22] MEDS: ASPIRIN ENTERIC COATED 81 MG TABLET.DR. PO SCH (08:54)
[2017-03-22] MEDS: LACTOBACILLUS ACIDOPH & BULGAR 1 TABLET. PO SCH ×3 (08:54→17:28)
[2017-03-22] MEDS: DULoxetine HCL 30 MG CAPSULE.DR PO SCH (08:54)
[2017-03-22] MEDS: FLUCONAZOLE 100 MG TABLET. PO SCH (08:54)
[2017-03-22] MEDS: CELECOXIB 200 MG CAPSULE. PO SCH ×2 (08:54→21:51)
[2017-03-22] MEDS: TAMSULOSIN 0.4 MG CAP.ER.24H. PO SCH (08:56)
[2017-03-22] MEDS: METOPROLOL TART IMMED RELEASE 25 MG TABLET. PO SCH ×2 (08:56→21:51)
[2017-03-22 11:00] VITALS: BP 120/60
--- NOTE | 2017-03-22 12:31 | PDOC ---
SUBJECTIVE Subjective feels better BS better, C.Diff + on Tx OBJECTIVE Vital Signs Vital Signs Date Time Temp Pulse Resp B/P (MAP) Pulse Ox O2 Delivery O2 Flow Rate FiO2 03/22/17 12:12 120/60 03/22/17 11:00 98.4 90 16 120/60 (80) 98 Room Air 98.4 03/22/17 08:56 95 116/60 03/22/17 08:00 Room Air 03/22/17 07:00 98.4 95 16 116/66 (83) 99 Room Air 98.4 03/22/17 06:23 88 105/53 03/22/17 03:17 98.2 88 18 105/53 (70) 96 Room Air 98.2 03/21/17 23:13 97.5 89 18 128/72 (90) 99 Room Air 97.5 03/21/17 20:05 Room Air 03/21/17 19:49 97.9 80 18 124/23 (56) 96 Room Air 97.9 03/21/17 17:13 138/79 03/21/17 15:00 98.0 86 20 138/79 (98) 95 Room Air 98.0 I & O Intake and Output 03/22/17 07:00 Intake Total 2600 ml Output Total 2000 ml Balance 600 ml Intake Oral 2600 ml Output Urine Total 2000 ml # Bowel Movements 5 PHYSICAL EXAM Physical Exam not much change ASSESSMENT/PLAN Assessment/Plan 1- c.diff colitis on flagyl , stopped ABx 2-hypoglycemia better after D/C glimipiride 3-Acute delirium superimposed on dementia. Better 4- Urinary retention requiring chronic indwelling Marley. ? CAUTI -Last changed by Dr. Barajas, on the . yeast in urine on Diflucan 5- Right plantar ulcers-clean , wound vac in place continue plans Problems: COMMENT Lab Laboratory Tests Test 03/21/17 16:59 03/21/17 20:26 03/22/17 04:35 03/22/17 07:10 Glucose (Fingerstick) 397 mg/dL (70-99) 350 mg/dL (70-99) 66 mg/dL (70-99) White Blood Count 13.6 x10^3/uL (4.0-11.0) Red Blood Count 3.20 x10^6/uL (4.30-5.70) Hemoglobin 8.6 g/dL (13.0-17.5) Hematocrit 26.6 % (39.0-53.0) Mean Corpuscular Volume 83 fL (79-100) Mean Corpuscular Hemoglobin 27 pg (25-35) Mean Corpuscular Hemoglobin Concent 32 g/dL (31-37) Red Cell Distribution Width 15.2 % (11.5-14.5) Platelet Count 262 x10^3/uL (140-400) Sodium Level 139 mmol/L (136-145) Potassium Level 4.0 mmol/L (3.5-5.1) Chloride Level 105 mmol/L (98-107) Carbon Dioxide Level 28 mmol/L (21-32) Anion Gap 6 (6-14) Blood Urea Nitrogen 20 mg/dL (8-26) Creatinine 0.9 mg/dL (0.7-1.3) Estimated GFR (Cockcroft-Gault) 81.2 Glucose Level 114 mg/dL (70-99) Calcium Level 8.4 mg/dL (8.5-10.1) Test 03/22/17 08:11 03/22/17 11:17 Glucose (Fingerstick) 108 mg/dL (70-99) 215 mg/dL (70-99) ARTEMIO BRICENO MD March 22, 2017 12:31
[2017-03-22 15:00] VITALS: BP 124/80
[2017-03-22 19:30] VITALS: BP 135/63
[2017-03-22] MEDS: ATORVASTATIN CALCIUM 10 MG TABLET. PO SCH (21:50)
[2017-03-22] MEDS: INSULIN DETEMIR 300 UNITS/3 ML INSULN.PEN. SQ SCH (21:55)
[2017-03-22 23:00] VITALS: BP 134/75
[2017-03-23 04:03] LABS: HEMATOCRIT 26.5 % (39.0-53.0); HEMOGLOBIN 8.4 g/dL (13.0-17.5); RED BLOOD COUNT 3.16 x10^6/uL (4.30-5.70); RED CELL DISTRIBUTION WIDTH 15.1 % (11.5-14.5); WHITE BLOOD COUNT 12.6 x10^3/uL (4.0-11.0)
[2017-03-23 04:40] LABS: CALCIUM 8.4 mg/dL (8.5-10.1); CREATININE 1.1 mg/dL (0.7-1.3); GFR 64.4; POTASSIUM 4.4 mmol/L (3.5-5.1)
[2017-03-23] MEDS: metroNIDAZOLE 500 MG TABLET PO SCH (05:54)
[2017-03-23] MEDS: MIDODRINE 2.5 MG TABLET PO SCH ×2 (05:54→12:44)
[2017-03-23 07:00] VITALS: BP 107/67
[2017-03-23] MEDS: TAMSULOSIN 0.4 MG CAP.ER.24H. PO SCH (08:56)
[2017-03-23] MEDS: CELECOXIB 200 MG CAPSULE. PO SCH (08:56)
[2017-03-23] MEDS: ASPIRIN ENTERIC COATED 81 MG TABLET.DR. PO SCH (08:56)
[2017-03-23] MEDS: LACTOBACILLUS ACIDOPH & BULGAR 1 TABLET. PO SCH ×3 (08:56→16:29)
[2017-03-23] MEDS: DULoxetine HCL 30 MG CAPSULE.DR PO SCH (08:56)
[2017-03-23] MEDS: FLUCONAZOLE 100 MG TABLET. PO SCH (08:56)
[2017-03-23] MEDS: METOPROLOL TART IMMED RELEASE 25 MG TABLET. PO SCH (08:57)
[2017-03-23] MEDS: INSULIN ASPART 300 UNITS/3 ML INSULN.PEN SQ SCH ×2 (09:03→12:51)
--- NOTE | 2017-03-23 10:07 | PDOC ---
Infectious Disease Note Subjective Subjective States doing well and back to normal Stools are better ROS ROS GEN: Denies fevers, chills, sweats HEENT: Denies blurred vision, sore throat CV: Denies chest pain RESP: Denies shortness of air, cough GI: Denies n/v/ NEURO: Denies confusion, dizziness MSK: Denies weakness, joint pain/swelling Vital Sign Vital Signs Vital Signs Date Time Temp Pulse Resp B/P (MAP) Pulse Ox O2 Delivery O2 Flow Rate FiO2 03/23/17 08:57 87 107/67 03/23/17 07:00 97.6 18 99 Room Air 97.6 Physical Exam PHYSICAL EXAM GENERAL: NAD, Alert HEENT: PERRL, OC/OP NECK: Supple, no JVD, no LN LUNGS: Clear HEART: S1S2, no gallop, no murmur ABD: Soft, NT, no organomegaly, no rebound EXT: No edema, no cyanosis WELCOME HOSTESS: Alert, oriented x 3, no focal neurologic deficit SKIN: No rash IV: ok Labs Lab Laboratory Tests Test 03/22/17 11:17 03/22/17 16:14 03/22/17 21:17 03/23/17 03:22 Glucose (Fingerstick) 215 mg/dL (70-99) 218 mg/dL (70-99) 325 mg/dL (70-99) Sodium Level 136 mmol/L (136-145) Potassium Level 4.4 mmol/L (3.5-5.1) Chloride Level 102 mmol/L (98-107) Carbon Dioxide Level 27 mmol/L (21-32) Anion Gap 7 (6-14) Blood Urea Nitrogen 22 mg/dL (8-26) Creatinine 1.1 mg/dL (0.7-1.3) Estimated GFR (Cockcroft-Gault) 64.4 Glucose Level 268 mg/dL (70-99) Calcium Level 8.4 mg/dL (8.5-10.1) Test 03/23/17 03:38 03/23/17 07:34 White Blood Count 12.6 x10^3/uL (4.0-11.0) Red Blood Count 3.16 x10^6/uL (4.30-5.70) Hemoglobin 8.4 g/dL (13.0-17.5) Hematocrit 26.5 % (39.0-53.0) Mean Corpuscular Volume 84 fL (79-100) Mean Corpuscular Hemoglobin 27 pg (25-35) Mean Corpuscular Hemoglobin Concent 32 g/dL (31-37) Red Cell Distribution Width 15.1 % (11.5-14.5) Platelet Count 279 x10^3/uL (140-400) Glucose (Fingerstick) 168 mg/dL (70-99) Objective Assessment Acute delirium superimposed on dementia. ?hypoglycemia vs infection. Better Mild leukocytosis today ? reactive with hypoglycemia Lactic acidosis Urinary retention requiring chronic indwelling Marley. ? CAUTI -Last changed by Dr. Barajas, on the . yeast in urine Right plantar ulcers-clean DM with episodes of hypoglycemia C diff Plan Plan of Care change flagyl to po vanco f/u with us in 2-3 wks, on vanco, since he had c diff before, to discuss options mean while ku to decide on catheter ok to d/c to [facility] MD March 23, 2017 10:07
[2017-03-23 10:41] VITALS: BP 108/74
[2017-03-23] MEDS: VANCOMYCIN 125 MG/2.5 ML ORAL SOLUTION. PO SCH ×2 (12:43→16:29)
[2017-03-23 14:48] VITALS: BP 109/50
[2017-03-23] MEDS ORDERED: ACID1TAB14 PO (16:20)
--- NOTE | 2017-03-23 20:00 | PDOC ---
GENERAL General: see discharge summary. Problems: VITAL SIGNS Vital Signs: Vital Signs Date Time Temp Pulse Resp B/P (MAP) Pulse Ox O2 Delivery O2 Flow Rate FiO2 03/23/17 14:48 97.8 64 18 109/50 (69) 96 Room Air 97.8 I & O I & O Intake and Output 03/23/17 07:00 Intake Total 1680 ml Output Total 1602 ml Balance 78 ml Intake Oral 1680 ml Output Urine Total 1600 ml Stool Total 2 ml # Voids 2 # Bowel Movements 3 ALLERGIES Allergies: Allergies Coded Allergies Type Severity Reaction Last Updated Verified No Known Drug Allergies 02/06/17 No MEDS Medications: Current Medications Medications (Trade) Dose Ordered Sig/Chay Start Time Stop Time Status Last Admin Dose Admin Amoxicillin/ Clavulanate Potassium (Augmentin 500/ 125mg) 1 tab BID 03/17/17 09:00 03/21/17 11:12 DC 03/21/17 09:35 1 TAB Aspirin (Ecotrin) 81 mg DAILY08 03/15/17 08:00 03/23/17 17:40 DC 03/23/17 08:56 81 MG Atorvastatin Calcium (Lipitor) 10 mg QHS 03/14/17 21:00 03/23/17 17:40 DC 03/22/17 21:50 10 MG Celecoxib (CeleBREX) 200 mg BID 03/14/17 21:00 03/23/17 17:40 DC 03/23/17 08:56 200 MG Dextrose 250 ml @ 1,000 mls/hr 1X ONCE 03/21/17 07:45 03/21/17 07:59 DC Dextrose (Dextrose 50%-Water Syringe) 12.5 gm PRN Q15MIN PRN 03/14/17 17:30 03/23/17 17:40 DC Duloxetine HCl (Cymbalta) 60 mg DAILY 03/15/17 09:00 03/23/17 17:40 DC 03/23/17 08:56 60 MG Fluconazole (Diflucan) 100 mg DAILY 03/17/17 09:00 03/23/17 17:40 DC 03/23/17 08:56 100 MG Glimepiride (Amaryl) 4 mg DAILY08 03/15/17 08:00 03/21/17 10:49 DC 03/21/17 09:36 4 MG Insulin Aspart (NovoLOG) 0-5 UNITS TIDWMEALS 03/14/17 18:00 03/23/17 17:40 DC 03/23/17 12:51 3 UNITS Insulin Detemir (Levemir) 15 units QHS 03/18/17 21:00 03/23/17 17:40 DC 03/22/17 21:55 15 UNITS Lactobacillus Acidophilus (Bacid, Emperatriz-Bid) 1 tab TIDWMEALS 03/17/17 12:00 03/23/17 17:40 DC 03/23/17 16:29 1 TAB Metoprolol Tartrate (Lopressor) 25 mg BID 03/14/17 21:00 03/23/17 17:40 DC 03/23/17 08:57 25 MG Metronidazole (Flagyl) 500 mg Q8HRS 03/21/17 12:00 03/23/17 10:08 DC 03/23/17 05:54 500 MG Midodrine (Proamatine) 2.5 mg [id number] 03/14/17 18:00 03/23/17 17:40 DC 03/23/17 12:44 2.5 MG Piperacillin Sod/ Tazobactam Sod 3.375 gm/Sodium Chloride 50 ml @ 100 mls/hr Q6HRS 03/14/17 16:00 03/17/17 08:43 DC 03/17/17 06:11 100 MLS/HR Sodium Chloride 1,000 ml @ 1,000 mls/hr Q1H 03/14/17 12:38 03/14/17 13:37 DC 03/14/17 13:18 1,000 MLS/HR Tamsulosin HCl (Flomax) 0.4 mg DAILY 03/15/17 09:00 03/23/17 17:40 DC 03/23/17 08:56 0.4 MG Vancomycin HCl 125 mg [id number] 03/23/17 11:00 03/23/17 17:40 DC 03/23/17 16:29 125 MG Vancomycin HCl (Vanco Per Pharmacy) 1 each PRN DAILY PRN 03/14/17 15:15 03/17/17 08:37 DC 03/16/17 15:05 1 EACH Vancomycin HCl 1.25 gm/Sodium Chloride 250 ml @ 167 mls/hr Q12H 03/15/17 04:00 03/16/17 04:46 DC 03/15/17 16:19 167 MLS/HR Vancomycin HCl 1.5 gm/Sodium Chloride 500 ml @ 250 mls/hr 1X ONCE 03/14/17 16:00 03/14/17 17:59 DC 03/14/17 16:48 250 MLS/HR Vancomycin HCl 1 gm/Sodium Chloride 250 ml @ 250 mls/hr Q18H 03/16/17 23:00 03/17/17 08:37 DC 03/16/17 23:57 250 MLS/HR LAB Lab: Laboratory Tests Test 03/22/17 21:17 03/23/17 03:22 03/23/17 03:38 03/23/17 07:34 Glucose (Fingerstick) 325 mg/dL (70-99) 168 mg/dL (70-99) Sodium Level 136 mmol/L (136-145) Potassium Level 4.4 mmol/L (3.5-5.1) Chloride Level 102 mmol/L (98-107) Carbon Dioxide Level 27 mmol/L (21-32) Anion Gap 7 (6-14) Blood Urea Nitrogen 22 mg/dL (8-26) Creatinine 1.1 mg/dL (0.7-1.3) Estimated GFR (Cockcroft-Gault) 64.4 Glucose Level 268 mg/dL (70-99) Calcium Level 8.4 mg/dL (8.5-10.1) White Blood Count 12.6 x10^3/uL (4.0-11.0) Red Blood Count 3.16 x10^6/uL (4.30-5.70) Hemoglobin 8.4 g/dL (13.0-17.5) Hematocrit 26.5 % (39.0-53.0) Mean Corpuscular Volume 84 fL (79-100) Mean Corpuscular Hemoglobin 27 pg (25-35) Mean Corpuscular Hemoglobin Concent 32 g/dL (31-37) Red Cell Distribution Width 15.1 % (11.5-14.5) Platelet Count 279 x10^3/uL (140-400) Test 03/23/17 11:19 Glucose (Fingerstick) 231 mg/dL (70-99) LUISITO RUSSELL MD March 23, 2017 20:00
--- NOTE | 2017-03-24 06:09 | DS ---
DATE OF DISCHARGE: 03/23/2017 ____ CHIEF COMPLAINT AND HISTORY OF PRESENT ILLNESS: This 81-year-old male was admitted through the Emergency Room with increasing confusion and weakness on the day of admission. SUMMARY OF STAY: The patient was admitted. It was felt by ID ____ urine infection was causing the symptoms. Urine eventually grew out yeast, which was treated with Diflucan. He was also placed on Augmentin because of the foot ulcer, although it appeared to be relatively clean. He did improve and then became worse again after the development of some diarrhea and was found to have C. diff for which he was started on therapy for the same a couple of days prior to discharge, he did have acute renal dysfunction with resolution during the stay, his glimepiride was stopped because of the ongoing hypoglycemia. His mental status seemed back to his baseline and he was felt ready for SNF on the day of discharge. DISPOSITION: [facility]. Diabetic diet. Activity as tolerated. Continued wound care with the wound doctor and offloading of that foot. Meds were transferred with the patient. We will continue to follow him there. LUISITO RUSSELL MD DR: CORINNE/vielka JOB#: [id number] / [id number]
== END 2017-03-23 16:30 | DRG 371 ==
LOC: ER 13:27 → 5 SOUTH 14:36
PROVIDERS: ADMIT Family Medicine; ATTEND Family Medicine
DX: A04.7 Enterocolitis due to Clostridium difficile (principal); G93.40 Encephalopathy, unspecified; N39.0 Urinary tract infection, site not specified; T83.518A Infection and inflammatory reaction due to other urinary catheter, initial encounter; F03.90 Unspecified dementia, unspecified severity, without behavioral disturbance, psychotic disturbance, mood disturbance, and anxiety; L97.519 Non-pressure chronic ulcer of other part of right foot with unspecified severity; F32.9 Major depressive disorder, single episode, unspecified; M19.90 Unspecified osteoarthritis, unspecified site; F41.9 Anxiety disorder, unspecified; M54.5 Low back pain; E11.649 Type 2 diabetes mellitus with hypoglycemia without coma; E78.5 Hyperlipidemia, unspecified; E11.621 Type 2 diabetes mellitus with foot ulcer; N40.1 Benign prostatic hyperplasia with lower urinary tract symptoms; E11.51 Type 2 diabetes mellitus with diabetic peripheral angiopathy without gangrene; Z82.0 Family history of epilepsy and other diseases of the nervous system; Z82.49 Family history of ischemic heart disease and other diseases of the circulatory system; Z87.891 Personal history of nicotine dependence; I25.2 Old myocardial infarction; Z79.899 Other long term (current) drug therapy; Z79.1 Long term (current) use of non-steroidal anti-inflammatories (NSAID); Z79.2 Long term (current) use of antibiotics
CPT/HCPCS: 36415; 71010; 73620; 80048; 80053; 80202; 81001; 82947; 83605; 85007; 85027; 85610; 85651; 85730; 87040; 87086; 87324; 96360; J1815; J2543; J3370; J7030; J7040; J7050; 97110; 97116; 99285-25

== ENCOUNTER → 2017-04-17 | Outpatient (CLI) | payer MEDICARE, BC ==
[2017-03-23 14:48] VITALS: BP 109/50
[~2017-04-17] MED LIST changes: +ACID1TAB14 PO; +ASPI-612 PO; -ASPI81TA9 PO
[2017-04-17 15:53] LABS: BASO # 0.1 x10^3/uL (0.0-0.2); BASO % 1 % (0-3); EOS % 7 % (0-3); HEMOGLOBIN 11.7 g/dL (13.0-17.5); LYMPH # 2.5 x10^3/uL (1.0-4.8); LYMPH % 31 % (24-48); MEAN CORPUSCULAR HEMOGLOBIN 27 pg (25-35); MEAN CORPUSCULAR HGB CONC 33 g/dL (31-37); MEAN CORPUSCULAR VOLUME 84 fL (79-100); MONO % 8 % (0-9); NEUT % 52 % (31-73); PLATELET COUNT 202 x10^3/uL (140-400); RED CELL DISTRIBUTION WIDTH 15.8 % (11.5-14.5); WHITE BLOOD COUNT 7.8 x10^3/uL (4.0-11.0)
[2017-04-17 16:14] LABS: ALBUMIN 3.4 g/dL (3.4-5.0); ALBUMIN/GLOBULIN RATIO 0.7 (1.0-1.7); CALCIUM 9.2 mg/dL (8.5-10.1); CREATININE 0.9 mg/dL (0.7-1.3); GFR 81.2; POTASSIUM 4.6 mmol/L (3.5-5.1); TOTAL BILIRUBIN 0.3 mg/dL (0.2-1.0); TOTAL PROTEIN 8.1 g/dL (6.4-8.2)
== END | disposition home or self-care (01) ==
LOC: SPEC 15:43
PROVIDERS: ATTEND Family Medicine
DX: E11.51 Type 2 diabetes mellitus with diabetic peripheral angiopathy without gangrene (principal); R79.89 Other specified abnormal findings of blood chemistry
CPT/HCPCS: 36415; 80053; 85027

== ENCOUNTER → 2017-04-27 | Outpatient (CLI) | payer MEDICARE, BC | END | disposition home or self-care (01) | LOC: PMGWOUND 12:05 | PROVIDERS: ATTEND Emergency Medicine Undersea and Hyperbaric Medicine | DX: E11.621 Type 2 diabetes mellitus with foot ulcer (principal); L97.513 Non-pressure chronic ulcer of other part of right foot with necrosis of muscle; F32.9 Major depressive disorder, single episode, unspecified; I25.2 Old myocardial infarction; E11.51 Type 2 diabetes mellitus with diabetic peripheral angiopathy without gangrene; F41.9 Anxiety disorder, unspecified; E78.5 Hyperlipidemia, unspecified; M19.90 Unspecified osteoarthritis, unspecified site; F03.90 Unspecified dementia, unspecified severity, without behavioral disturbance, psychotic disturbance, mood disturbance, and anxiety; Z87.891 Personal history of nicotine dependence | CPT/HCPCS: 99214 ==

== ENCOUNTER → 2017-05-04 | Outpatient (CLI) | payer MEDICARE, BC | END | disposition home or self-care (01) | LOC: PMGWOUND 11:57 | PROVIDERS: ATTEND Emergency Medicine Undersea and Hyperbaric Medicine | DX: E11.621 Type 2 diabetes mellitus with foot ulcer (principal); L97.513 Non-pressure chronic ulcer of other part of right foot with necrosis of muscle; F32.9 Major depressive disorder, single episode, unspecified; I25.2 Old myocardial infarction; F41.9 Anxiety disorder, unspecified; E78.5 Hyperlipidemia, unspecified; E11.51 Type 2 diabetes mellitus with diabetic peripheral angiopathy without gangrene; F03.90 Unspecified dementia, unspecified severity, without behavioral disturbance, psychotic disturbance, mood disturbance, and anxiety; M19.90 Unspecified osteoarthritis, unspecified site; Z87.891 Personal history of nicotine dependence | CPT/HCPCS: 99214 ==

== ENCOUNTER 2017-05-07 11:08 | Inpatient (IN) | payer MEDICARE, BC ==
[~2017-05-07] VITALS: Ht 175.3 cm; Wt 72.6 kg
[2017-05-07 11:36] LABS: BASO # 0.1 x10^3/uL (0.0-0.2); BASO % 1 % (0-3); EOS % 1 % (0-3); HEMOGLOBIN 12.2 g/dL (13.0-17.5); LYMPH # 1.8 x10^3/uL (1.0-4.8); LYMPH % 14 % (24-48); MEAN CORPUSCULAR HEMOGLOBIN 27 pg (25-35); MEAN CORPUSCULAR HGB CONC 33 g/dL (31-37); MEAN CORPUSCULAR VOLUME 81 fL (79-100); MONO % 6 % (0-9); NEUT % 78 % (31-73); PLATELET COUNT 329 x10^3/uL (140-400); RED BLOOD COUNT 4.57 x10^6/uL (4.30-5.70); RED CELL DISTRIBUTION WIDTH 15.3 % (11.5-14.5); WHITE BLOOD COUNT 12.9 x10^3/uL (4.0-11.0)
--- NOTE | 2017-05-07 11:48 | RAD ---
Portable chest, 05/07/2017: History: Confusion Comparison is made to a study from 03/14/2017. The heart size and pulmonary vascularity are normal. No pulmonary infiltrates are seen. There is no evidence of pleural fluid. IMPRESSION: No acute cardiopulmonary abnormality is detected.
[2017-05-07 11:53] LABS: ALBUMIN 3.3 g/dL (3.4-5.0); CALCIUM 9.1 mg/dL (8.5-10.1); CREATININE 1.1 mg/dL (0.7-1.3); DIRECT BILIRUBIN 0.1 mg/dL (0.0-0.2); GFR 64.4; POTASSIUM 3.8 mmol/L (3.5-5.1); TOTAL BILIRUBIN 0.3 mg/dL (0.2-1.0); TOTAL PROTEIN 8.9 g/dL (6.4-8.2)
[2017-05-07 12:24] LABS: BILIRUBIN,URINE NEGATIVE (NEG); GLUCOSE,URINE 500 mg/dL (NEG); NITRITE,URINE POSITIVE (NEG); PROTEIN,URINE 100 mg/dL (NEG-TRACE); UROBILINOGEN,URINE 0.2 mg/dL (0.2 mg/dL)
--- NOTE | 2017-05-07 12:32 | PHYS DOC ---
Past Medical History Past Medical History: Diabetes-Type II, Prostatitis, URI, UTI, Other Additional Past Medical Histor: enlarged prostate Past Surgical History: Other Additional Past Surgical Histo: R eye sx Alcohol Use: None Drug Use: None Adult General Chief Complaint Chief Complaint: ALTERED MENTAL STATUS HPI HPI 81-year-old male presenting to the emergency department today after becoming confused. This confusion started today. He is currently being treated for a wound on his right foot. He was supposed to get an MRI of his foot to evaluate for osteomyelitis today. He's been treated at the wound center currently. His daughter is here with him today. He denies any pain and is only oriented to person. Onset today. Location generalized. duration constant. no alleviating or exacerbating factors. His daughter denies him having a cough recently. He has a Marley in place by Dr. Barajas who follows his Marley catheter for urinary retention. Review of systems is negative for chest pain shortness of breath abdominal pain nausea vomiting fevers or chills. All other review of systems is negative unless otherwise noted in history of present illness. ED course: 81-year-old male presenting to the emergency department today with confusion suggestive of delirium. Patient's vital signs afebrile with a normal heart rate. Saturating well on room air. Pertinent physical exam findings lungs are clear to auscultation bilaterally. Heart sounds are normal. Abdomen is soft and nontender. The patient has a wound on his right lower extremity that is chronic and draining green yellow discharge. Urinary tract infection noted on urinalysis. Otherwise patient has a leukocytosis. The patient was given antibiotics after blood cultures were drawn and then admitted to our hospital for further evaluation workup and care. Review of Systems Review of Systems SEE ABOVE. Current Medications Current Medications Current Medications Medications (Trade) Dose Ordered Sig/Chay Start Time Stop Time Status Last Admin Dose Admin Morphine Sulfate 2 mg PRN Q2HR PRN 05/07/17 12:45 05/08/17 12:44 Ondansetron HCl (Zofran) 4 mg PRN Q8HRS PRN 05/07/17 12:45 05/08/17 12:44 Piperacillin Sod/ Tazobactam Sod (Zosyn Per Pharmacy) 1 each PRN DAILY PRN 05/07/17 12:45 UNV Piperacillin Sod/ Tazobactam Sod 3.375 gm/Sodium Chloride 50 ml @ 100 mls/hr 1X ONCE 05/07/17 13:00 05/07/17 13:29 05/07/17 13:09 100 MLS/HR Sodium Chloride 1,000 ml @ 100 mls/hr 1X ONCE 05/07/17 12:45 05/07/17 22:44 Vancomycin HCl (Vanco Per Pharmacy) 1 each PRN DAILY PRN 05/07/17 12:45 UNV Vancomycin HCl 1.75 gm/Sodium Chloride 500 ml @ 250 mls/hr 1X ONCE 05/07/17 13:00 05/07/17 14:59 Allergies Allergies Allergies Coded Allergies Type Severity Reaction Last Updated Verified No Known Drug Allergies 02/06/17 No Physical Exam Physical Exam SEE ABOVE Constitutional: Well developed, well nourished, no acute distress, non-toxic appearance. [] HENT: Normocephalic, atraumatic, bilateral external ears normal, oropharynx moist, no oral exudates, nose normal. [] Eyes: PERRLA, EOMI, conjunctiva normal, no discharge. [] Neck: Normal range of motion, no tenderness, supple, no stridor. [] Cardiovascular:Heart rate regular rhythm, no murmur [] Lungs & Thorax: Bilateral breath sounds clear to auscultation [] Abdomen: Bowel sounds normal, soft, no tenderness, no masses, no pulsatile masses. [] Skin: SEE ABOVE Back: No tenderness, no CVA tenderness. [] Extremities: No tenderness, no cyanosis, no clubbing, ROM intact, no edema. [] Neurologic: Alert and oriented X 1, normal motor function, normal sensory function, no focal deficits noted. [] Psychologic: Affect normal, judgement normal, mood normal. [] Current Patient Data Vital Signs Vital Signs Date Time Temp Pulse Resp B/P (MAP) Pulse Ox O2 Delivery O2 Flow Rate FiO2 05/07/17 12:21 82 16 138/74 (95) 99 Room Air 05/07/17 11:20 97.6 97.6 Lab Values Laboratory Tests Test 05/07/17 11:25 05/07/17 12:08 White Blood Count 12.9 x10^3/uL (4.0-11.0) H Red Blood Count 4.57 x10^6/uL (4.30-5.70) Hemoglobin 12.2 g/dL (13.0-17.5) L Hematocrit 37.0 % (39.0-53.0) L Mean Corpuscular Volume 81 fL (79-100) Mean Corpuscular Hemoglobin 27 pg (25-35) Mean Corpuscular Hemoglobin Concent 33 g/dL (31-37) Red Cell Distribution Width 15.3 % (11.5-14.5) H Platelet Count 329 x10^3/uL (140-400) Neutrophils (%) (Auto) 78 % (31-73) H Lymphocytes (%) (Auto) 14 % (24-48) L Monocytes (%) (Auto) 6 % (0-9) Eosinophils (%) (Auto) 1 % (0-3) Basophils (%) (Auto) 1 % (0-3) Neutrophils # (Auto) 10.0 x10^3uL (1.8-7.7) H Lymphocytes # (Auto) 1.8 x10^3/uL (1.0-4.8) Monocytes # (Auto) 0.8 x10^3/uL (0.0-1.1) Eosinophils # (Auto) 0.2 x10^3/uL (0.0-0.7) Basophils # (Auto) 0.1 x10^3/uL (0.0-0.2) Sodium Level 142 mmol/L (136-145) Potassium Level 3.8 mmol/L (3.5-5.1) Chloride Level 101 mmol/L (98-107) Carbon Dioxide Level 30 mmol/L (21-32) Anion Gap 11 (6-14) Blood Urea Nitrogen 30 mg/dL (8-26) H Creatinine 1.1 mg/dL (0.7-1.3) Estimated GFR (Cockcroft-Gault) 64.4 Glucose Level 136 mg/dL (70-99) H Lactic Acid Level 2.0 mmol/L (0.4-2.0) Calcium Level 9.1 mg/dL (8.5-10.1) Total Bilirubin 0.3 mg/dL (0.2-1.0) Direct Bilirubin 0.1 mg/dL (0.0-0.2) Aspartate Amino Transferase (AST) 18 U/L (15-37) Alanine Aminotransferase (ALT) 15 U/L (16-63) L Alkaline Phosphatase 130 U/L (46-116) H Troponin I Quantitative 0.054 ng/mL (0.000-0.055) VX-Oku-M-Type Natriuretic Peptide 506 pg/mL (0-449) H Total Protein 8.9 g/dL (6.4-8.2) H Albumin 3.3 g/dL (3.4-5.0) L Lipase 129 U/L (73-393) Urine Collection Type Unknown Urine Color Yellow Urine Clarity Turbid Urine pH 8.0 Urine Specific [place] 1.025 Urine Protein 100 mg/dL (NEG-TRACE) Urine Glucose (UA) 500 mg/dL (NEG) Urine Ketones (Stick) Trace mg/dL (NEG) Urine Blood Moderate (NEG) Urine Nitrite Positive (NEG) Urine Bilirubin Negative (NEG) Urine Urobilinogen Dipstick 0.2 mg/dL (0.2 mg/dL) Urine Leukocyte Esterase Large (NEG) Urine RBC Fobs /HPF (0-2) Urine WBC Tntc /HPF (0-4) Urine Bacteria 0 /HPF (0-FEW) Laboratory Tests 05/07/17 11:25 Laboratory Tests 05/07/17 11:25 EKG EKG [] Radiology/Procedures Radiology/Procedures [] Course & Med Decision Making Course & Med Decision Making Pertinent Labs and Imaging studies reviewed. (See chart for details) [] Dragon Disclaimer Dragon Disclaimer This electronic medical record was generated, in whole or in part, using a voice recognition dictation system. Departure Departure Impression: Primary Impression: Delirium Disposition: ADMITTED INPATIENT Admitting Physician: Luisito Prater Condition: STABLE Referrals: LUISITO PRATER MD (PCP) ILENE LOMBARDI MD May 07, 2017 12:32
[2017-05-07 12:36] LABS: BACTERIA,URINE 0 /HPF (0-FEW); RBC,URINE FOBS /HPF (0-2); WBC,URINE TNTC /HPF (0-4)
[2017-05-07] MEDS ORDERED: MORPHINE SULFATE 2 MG/ML DISP.SYRIN. IV PRN (12:45)
[2017-05-07] MEDS ORDERED: IV NORMAL SALINE 500ML BAG 500 ML IV ONE (12:45)
[2017-05-07] MEDS ORDERED: ONDANSETRON PF 4 MG/2 ML VIAL. IV PRN (12:45)
[2017-05-07] MEDS ORDERED: IV NORMAL SALINE 1000ML BAG 1,000 ML IV ONE (12:45)
[2017-05-07] MEDS ORDERED: PIP/TAZO PER PHARMACY MC PRN (12:45)
--- NOTE | 2017-05-07 12:47 | EKG ---
[facility] [address] [place] [address] Test Date: 2017-05-07 Test Time: 11:24:14 Pat Name: MICKY SAAVEDRA Department: Room: Gender: M [employer] Hel[employer]: : [phone] Requested By: ILENE LOMBARDI Order Number: [id number] Reading MD: Measurements Intervals [place] Rate: 90 P: 48 MA: 170 QRS: -32 QRSD: 114 T: 41 QT: 408 QTc: 504 Interpretive Statements SINUS RHYTHM ABNORMAL LEFT AXIS DEVIATION LEFT ANTERIOR FASCICULAR BLOCK INCOMPLETE RIGHT BUNDLE BRANCH BLOCK PROLONGED QT ABNORMAL ECG RI6.01 No previous ECG available for comparison
[2017-05-07] MEDS ORDERED: VANCOMYCIN 1.75 GM in IV NORMAL SALINE 500ML BAG 500 ML IV ONE (13:00)
[2017-05-07] MEDS ORDERED: PIPERACILLIN/TAZOBACTAM 3.375 GM in IV NORMAL SALINE 50ML 50 ML IV ONE (13:00)
[2017-05-07] MEDS: VANCOMYCIN PER PHARMACY MC PRN (13:59)
[2017-05-07 14:15] VITALS: BP 143/80
[2017-05-07] MEDS ORDERED: DEXTROSE 50% 25 GM / 50ML DISP.SYRIN. IV PRN (17:30)
[2017-05-07] MEDS: PIPERACILLIN/TAZOBACTAM 3.375 GM in IV NORMAL SALINE 50ML 50 ML IV SCH (19:00)
[2017-05-07 19:10] VITALS: BP 157/78
[2017-05-07 23:10] VITALS: BP 143/73
[2017-05-08] VITALS (12 sets, daily range): BP systolic 107–144; BP diastolic 47–76
[2017-05-08] MEDS: PIPERACILLIN/TAZOBACTAM 3.375 GM in IV NORMAL SALINE 50ML 50 ML IV SCH ×5 (00:50→23:55)
[2017-05-08 06:56] LABS: BASO # 0.1 x10^3/uL (0.0-0.2); BASO % 1 % (0-3); EOS % 3 % (0-3); HEMATOCRIT 32.3 % (39.0-53.0); HEMOGLOBIN 10.5 g/dL (13.0-17.5); LYMPH # 2.3 x10^3/uL (1.0-4.8); LYMPH % 22 % (24-48); MEAN CORPUSCULAR HEMOGLOBIN 27 pg (25-35); MEAN CORPUSCULAR HGB CONC 32 g/dL (31-37); MEAN CORPUSCULAR VOLUME 82 fL (79-100); MONO % 9 % (0-9); NEUT % 66 % (31-73); PLATELET COUNT 236 x10^3/uL (140-400); RED BLOOD COUNT 3.93 x10^6/uL (4.30-5.70); RED CELL DISTRIBUTION WIDTH 15.2 % (11.5-14.5); WHITE BLOOD COUNT 10.5 x10^3/uL (4.0-11.0)
[2017-05-08 07:06] LABS: CALCIUM 8.2 mg/dL (8.5-10.1); CREATININE 0.8 mg/dL (0.7-1.3); POTASSIUM 3.5 mmol/L (3.5-5.1)
[2017-05-08] MEDS ORDERED: INSULIN GLARGINE HUM REC ANLOG 20 UNIT SQ PRN (07:30)
[2017-05-08] MEDS: LACTOBACILLUS ACIDOPH & BULGAR 1 TABLET. PO SCH ×3 (07:30→19:26)
--- NOTE | 2017-05-08 07:57 | PDOC ---
GENERAL General: vss and afebrile. admitted with delirium due to infection(uti and osteomyelitis) . on iv vanco and zosyn. will consult ortho and ID and await culture results. unable to dictate H&P due to system still being down. Problems: VITAL SIGNS Vital Signs: Vital Signs Date Time Temp Pulse Resp B/P (MAP) Pulse Ox O2 Delivery O2 Flow Rate FiO2 05/08/17 03:15 97.9 98 16 141/76 (97) 95 Room Air 97.9 I & O I & O Intake and Output 05/08/17 07:00 Intake Total 1110 ml Output Total 1600 ml Balance -490 ml Intake Oral 560 ml IV Total 550 ml Output Urine Total 1600 ml # Voids 2 ALLERGIES Allergies: Allergies Coded Allergies Type Severity Reaction Last Updated Verified No Known Drug Allergies 02/06/17 No MEDS Medications: Current Medications Medications (Trade) Dose Ordered Sig/Chay Start Time Stop Time Status Last Admin Dose Admin Aspirin (Ecotrin) 81 mg DAILY 05/08/17 09:00 Atorvastatin Calcium (Lipitor) 10 mg QHS 05/08/17 21:00 Celecoxib (CeleBREX) 200 mg BID 05/08/17 09:00 Dextrose (Dextrose 50%-Water Syringe) 25 gm PRN Q15MIN PRN 05/07/17 17:30 Duloxetine HCl (Cymbalta) 60 mg DAILY 05/08/17 09:00 Glimepiride (Amaryl) 4 mg DAILY 05/08/17 09:00 Lactobacillus Acidophilus (Bacid, Emperatriz-Bid) 1 tab TIDAC 05/08/17 07:30 Metoprolol Tartrate (Lopressor) 25 mg BID 05/08/17 09:00 Midodrine (Proamatine) 2.5 mg [id number] 05/08/17 08:00 Morphine Sulfate 2 mg PRN Q2HR PRN 05/07/17 12:45 05/08/17 12:44 Non-Formulary Medication 20 unit PRN DAILY PRN 05/08/17 07:30 Ondansetron HCl (Zofran) 4 mg PRN Q8HRS PRN 05/07/17 12:45 05/08/17 12:44 Piperacillin Sod/ Tazobactam Sod (Zosyn Per Pharmacy) 1 each PRN DAILY PRN 05/07/17 12:45 Piperacillin Sod/ Tazobactam Sod 3.375 gm/Sodium Chloride 50 ml @ 100 mls/hr Q6HRS 05/07/17 18:00 05/08/17 06:17 100 MLS/HR Sodium Chloride 1,000 ml @ 100 mls/hr 1X ONCE 05/07/17 12:45 05/07/17 22:44 DC 05/07/17 16:25 100 MLS/HR Tamsulosin HCl (Flomax) 0.4 mg DAILY 05/08/17 09:00 Vancomycin HCl 1 each 1X ONCE 05/09/17 13:30 05/09/17 13:31 Vancomycin HCl (Vanco Per Pharmacy) 1 each PRN DAILY PRN 05/07/17 12:45 05/07/17 13:59 1 EACH Vancomycin HCl 1.5 gm/Sodium Chloride 500 ml @ 250 mls/hr Q24H 05/08/17 14:00 Vancomycin HCl 1.75 gm/Sodium Chloride 500 ml @ 250 mls/hr 1X ONCE 05/07/17 13:00 05/07/17 14:59 DC 05/07/17 13:48 250 MLS/HR LAB Lab: Laboratory Tests Test 05/07/17 11:25 05/07/17 12:08 05/07/17 16:59 05/07/17 17:20 White Blood Count 12.9 x10^3/uL (4.0-11.0) Red Blood Count 4.57 x10^6/uL (4.30-5.70) Hemoglobin 12.2 g/dL (13.0-17.5) Hematocrit 37.0 % (39.0-53.0) Mean Corpuscular Volume 81 fL (79-100) Mean Corpuscular Hemoglobin 27 pg (25-35) Mean Corpuscular Hemoglobin Concent 33 g/dL (31-37) Red Cell Distribution Width 15.3 % (11.5-14.5) Platelet Count 329 x10^3/uL (140-400) Neutrophils (%) (Auto) 78 % (31-73) Lymphocytes (%) (Auto) 14 % (24-48) Monocytes (%) (Auto) 6 % (0-9) Eosinophils (%) (Auto) 1 % (0-3) Basophils (%) (Auto) 1 % (0-3) Neutrophils # (Auto) 10.0 x10^3uL (1.8-7.7) Lymphocytes # (Auto) 1.8 x10^3/uL (1.0-4.8) Monocytes # (Auto) 0.8 x10^3/uL (0.0-1.1) Eosinophils # (Auto) 0.2 x10^3/uL (0.0-0.7) Basophils # (Auto) 0.1 x10^3/uL (0.0-0.2) Sodium Level 142 mmol/L (136-145) Potassium Level 3.8 mmol/L (3.5-5.1) Chloride Level 101 mmol/L (98-107) Carbon Dioxide Level 30 mmol/L (21-32) Anion Gap 11 (6-14) Blood Urea Nitrogen 30 mg/dL (8-26) Creatinine 1.1 mg/dL (0.7-1.3) Estimated GFR (Cockcroft-Gault) 64.4 Glucose Level 136 mg/dL (70-99) Lactic Acid Level 2.0 mmol/L (0.4-2.0) Calcium Level 9.1 mg/dL (8.5-10.1) Total Bilirubin 0.3 mg/dL (0.2-1.0) Direct Bilirubin 0.1 mg/dL (0.0-0.2) Aspartate Amino Transf (AST/SGOT) 18 U/L (15-37) Alanine Aminotransferase (ALT/SGPT) 15 U/L (16-63) Alkaline Phosphatase 130 U/L (46-116) Troponin I Quantitative 0.054 ng/mL (0.000-0.055) BL-Epy-U-Type Natriuretic Peptide 506 pg/mL (0-449) Total Protein 8.9 g/dL (6.4-8.2) Albumin 3.3 g/dL (3.4-5.0) Lipase 129 U/L (73-393) Urine Collection Type Unknown Urine Color Yellow Urine Clarity Turbid Urine pH 8.0 Urine Specific [place] 1.025 Urine Protein 100 mg/dL (NEG-TRACE) Urine Glucose (UA) 500 mg/dL (NEG) Urine Ketones (Stick) Trace mg/dL (NEG) Urine Blood Moderate (NEG) Urine Nitrite Positive (NEG) Urine Bilirubin Negative (NEG) Urine Urobilinogen Dipstick 0.2 mg/dL (0.2 mg/dL) Urine Leukocyte Esterase Large (NEG) Urine RBC Fobs /HPF (0-2) Urine WBC Tntc /HPF (0-4) Urine Bacteria 0 /HPF (0-FEW) Glucose (Fingerstick) 51 mg/dL (70-99) 51 mg/dL (70-99) Test 05/07/17 17:43 05/07/17 20:33 05/08/17 06:40 05/08/17 07:21 Glucose (Fingerstick) 102 mg/dL (70-99) 317 mg/dL (70-99) 152 mg/dL (70-99) White Blood Count 10.5 x10^3/uL (4.0-11.0) Red Blood Count 3.93 x10^6/uL (4.30-5.70) Hemoglobin 10.5 g/dL (13.0-17.5) Hematocrit 32.3 % (39.0-53.0) Mean Corpuscular Volume 82 fL (79-100) Mean Corpuscular Hemoglobin 27 pg (25-35) Mean Corpuscular Hemoglobin Concent 32 g/dL (31-37) Red Cell Distribution Width 15.2 % (11.5-14.5) Platelet Count 236 x10^3/uL (140-400) Neutrophils (%) (Auto) 66 % (31-73) Lymphocytes (%) (Auto) 22 % (24-48) Monocytes (%) (Auto) 9 % (0-9) Eosinophils (%) (Auto) 3 % (0-3) Basophils (%) (Auto) 1 % (0-3) Neutrophils # (Auto) 6.9 x10^3uL (1.8-7.7) Lymphocytes # (Auto) 2.3 x10^3/uL (1.0-4.8) Monocytes # (Auto) 1.0 x10^3/uL (0.0-1.1) Eosinophils # (Auto) 0.3 x10^3/uL (0.0-0.7) Basophils # (Auto) 0.1 x10^3/uL (0.0-0.2) Sodium Level 142 mmol/L (136-145) Potassium Level 3.5 mmol/L (3.5-5.1) Chloride Level 105 mmol/L (98-107) Carbon Dioxide Level 29 mmol/L (21-32) Anion Gap 8 (6-14) Blood Urea Nitrogen 11 mg/dL (8-26) Creatinine 0.8 mg/dL (0.7-1.3) Estimated GFR (Cockcroft-Gault) 93.0 Glucose Level 166 mg/dL (70-99) Calcium Level 8.2 mg/dL (8.5-10.1) APPL,LUISITO Patel MD May 08, 2017 07:57
[2017-05-08] MEDS: MIDODRINE 2.5 MG TABLET PO SCH ×3 (08:00→18:00)
[2017-05-08] MEDS: TAMSULOSIN 0.4 MG CAP.ER.24H. PO SCH (09:00)
[2017-05-08] MEDS: ASPIRIN ENTERIC COATED 81 MG TABLET.DR. PO SCH (09:00)
[2017-05-08] MEDS: CELECOXIB 200 MG CAPSULE. PO SCH ×2 (09:00→20:02)
[2017-05-08] MEDS: GLIMEPIRIDE 2 MG TABLET. PO SCH (09:00)
[2017-05-08] MEDS: DULoxetine HCL 30 MG CAPSULE.DR PO SCH (09:00)
[2017-05-08] MEDS: METOPROLOL TART IMMED RELEASE 25 MG TABLET. PO SCH ×3 (09:00→20:03)
--- NOTE | 2017-05-08 09:56 | PDOC2 ---
CONSULT Date of Consult Date of Consult DATE: 05/08/17 TIME: 09:52 Reason for Consult Reason for Consult: Right foot wounds Referring Physician Referring Physician: Josi Identification/Chief Complaint Chief Complaint Right foot wounds Problems: History of Present Illness Reason for Visit: Patient has had right foot. Wounds that were atraumatic in onset for a couple of months. He has been seen by another doctor and has had some wound care, unfortunately the wounds have progressed. He has been trying to stay off of these. He tells me that they are sore the pain is worse with weightbearing. The pain does go up his leg a little bit, but not much radiation. He denies any fevers or chills. He has not noticed any sudden change in odor or appearance, there is been hurting more Past Medical History Cardiovascular: CAD, HTN, Hyperlipidemia Psych: Anxiety, Depression Musculoskeletal: Osteoarthritis Renal/: Benign prostatic enlarg., Hematuria Endocrine: Diabetes Past Surgical History Past Surgical History: Tonsillectomy, Other Family History Family History: Diabetes, Hypertension, Other Social History ALCOHOL: none Drugs: None Lives: with Family Current Problem List Problem List Problems Medical Problems: (1) Delirium Status: Acute Current Medications Current Medications Current Medications Vancomycin HCl (Vanco Per Pharmacy) 1 each PRN DAILY PRN MC SEE COMMENTS Last administered on 05/07/17 13:59; Start 05/07/17 at 12:45 Piperacillin Sod/ Tazobactam Sod (Zosyn Per Pharmacy) 1 each PRN DAILY PRN MC SEE COMMENTS; Start 05/07/17 at 12:45 Sodium Chloride 500 ml @ 500 mls/hr 1X ONCE IV Last administered on 05/07/17 13:11; Start 05/07/17 at 12:45; Stop 05/07/17 at 13:44; Status DC Ondansetron HCl (Zofran) 4 mg PRN Q8HRS PRN IV NAUSEA/VOMITING; Start 05/07/17 at 12:45; Stop 05/08/17 at 12:44 Morphine Sulfate 2 mg PRN Q2HR PRN IV PAIN; Start 05/07/17 at 12:45; Stop at 12:44 Sodium Chloride 1,000 ml @ 100 mls/hr 1X ONCE IV Last administered on 16:25; Start 05/07/17 at 12:45; Stop 05/07/17 at 22:44; Status DC Vancomycin HCl 1.75 gm/Sodium Chloride 500 ml @ 250 mls/hr 1X ONCE IV Last administered on 05/07/17 13:48; Start 05/07/17 at 13:00; Stop 05/07/17 at 14:59; Status DC Piperacillin Sod/ Tazobactam Sod 3.375 gm/Sodium Chloride 50 ml @ 100 mls/hr 1X ONCE IV Last administered on 05/07/17 13:09; Start 05/07/17 at 13:00; Stop 05/07/17 at 13:29; Status DC Piperacillin Sod/ Tazobactam Sod 3.375 gm/Sodium Chloride 50 ml @ 100 mls/hr Q6HRS IV Last administered on 05/08/17 06:17; Start 05/07/17 at 18:00 Vancomycin HCl 1.5 gm/Sodium Chloride 500 ml @ 250 mls/hr Q24H IV ; Start at 14:00 Vancomycin HCl 1 each 1X ONCE MC ; Start 05/09/17 at 13:30; Stop 05/09/17 at 13: 31 Dextrose (Dextrose 50%-Water Syringe) 25 gm PRN Q15MIN PRN IV hypoglycemia; Start 05/07/17 at 17:30 Lactobacillus Acidophilus (Bacid, Emperatriz-Bid) 1 tab TIDAC PO ; Start 05/08/17 at 07 :30 Aspirin (Ecotrin) 81 mg DAILY PO ; Start 05/08/17 at 09:00 Atorvastatin Calcium (Lipitor) 10 mg QHS PO ; Start 05/08/17 at 21:00 Celecoxib (CeleBREX) 200 mg BID PO ; Start 05/08/17 at 09:00 Metoprolol Tartrate (Lopressor) 25 mg BID PO ; Start 05/08/17 at 09:00 Midodrine (Proamatine) 2.5 mg LPO296 PO ; Start 05/08/17 at 08:00 Tamsulosin HCl (Flomax) 0.4 mg DAILY PO ; Start 05/08/17 at 09:00 Duloxetine HCl (Cymbalta) 60 mg DAILY PO ; Start 05/08/17 at 09:00 Glimepiride (Amaryl) 4 mg DAILY PO ; Start 05/08/17 at 09:00 Non-Formulary Medication 20 unit PRN DAILY PRN SQ ONLY IF BS >200; Start at 07:30 Active Scripts Active Atorvastatin Calcium 10 Mg Tablet 10 Mg PO QHS Metoprolol Tartrate 25 Mg Tablet 25 Mg PO BID Midodrine Hcl 2.5 Mg Tablet 2.5 Mg PO [id number] Reported Emperatriz-Bid Caplet (Acidoph/L.bulg/Bif.b/S.thermop) 1 Each Tablet 1 Each PO TIDAC Aspirin Ec (Aspirin) 81 Mg Tablet.dr 1 Tab PO DAILY Lantus (Insulin Glargine,Hum.rec.anlog) 100 Unit/1 Ml Vial 20 Unit SQ PRN PRN ONLY IF BLOOD SUGAR GREATER THAN 200. Glimepiride 4 Mg Tablet 4 Mg PO DAILY Celebrex (Celecoxib) 200 Mg Capsule 200 Mg PO BID 30 Days Duloxetine Hcl 60 Mg Capsule.dr 60 Mg PO DAILY Tamsulosin Hcl 0.4 Mg Cap.er.24h 0.4 Mg PO DAILY Allergies Allergies: Coded Allergies: No Known Drug Allergies (Unverified , 02/06/17) ROS PSYCHOLOGICAL ROS: No: Anxiety, Behavioral Disorder, Concentration difficultie , Decreased libido, Depression, Disorientation, Hallucinations, Hostility, Irritablity, Memory difficulties, Mood Swings, Obsessive thoughts, Physical abuse, Sexual abuse, Sleep disturbances, Suicidal ideation, Other Eyes: No Blurry vision, No Decreased vision, No Double vision, No Dry eyes, No Excessive tearing, No Eye Pain, No Itchy Eyes, No Loss of vision, No Photophobia , No Scotomata, No Uses contacts, No Uses glasses, No Other ALLERGY AND IMMUNOLOGY: No: Hives, Insect Bite Sensitivity, Itchy/Watery Eyes, Nasal Congestion, Post Nasal Drip, Seasonal Allergies, Other Hematological and Lymphatic: No: Bleeding Problems, Blood Clots, Blood Transfusions, Brusing, Night Sweats, Pallor, Swollen Lymph Nodes, Other Respiratory: No: Cough, Hemoptysis, Orthopnea, Pleuritic Pain, Shortness of breath, SOB with excertion, Sputum Changes, Stridor, Tachypnea, Wheezing, Other Cardiovascular: No Chest Pain, No Palpitations, No Orthopnea, No Paroxysmal Noc. Dyspnea, No Edema, No Lt Headedness, No Other Gastrointestinal: No Nausea, No Vomiting, No Abdominal Pain, No Diarrhea, No Constipation, No Melena, No Hematochezia, No Other Genitourinary: No Dysuria, No Frequency, No Incontinence, No Hematuria, No Retention, No Discharge, No Urgency, No Pain, No Flank Pain, No Other, No , No , No , No , No , No , No Musculoskeletal: Yes Pain In: (r foot) Neurological: No Behavorial Changes, No Bowel/Bladder ControlChng, No Confusion , No Dizziness, No Gait Disturbance, No Headaches, No Impaired Coord/balance, No Memory Loss, No Numbness/Tingling, No Seizures, No Speech Problems, No Tremors, No Visual Changes, No Weakness, No Other Skin: Yes Pruritus Physical Exam General: Alert, Oriented X3 HEENT: Atraumatic, EOMI Lungs: Other (respirations unlabored with symmetric chest rise) Heart: Regular rate Abdomen: Normal bowel sounds, Soft Extremities: No clubbing, No cyanosis Neuro: Strength at 5/5 X4 ext, Sensation intact Psych/Mental Status: Mental status NL, Mood NL MUSCULOSKELETAL: Other (examination of his right lower extremity reveals dorsalis pedis 1+. No edema. He has a quarter-sized and a dime-sized area of full-thickness skin loss with granulation tissue and some necrotic debris in both wounds at the plantar forefoot. No surrounding fluctuance or erythema. Unable to probe bone.) Vitals VITALS Vital Signs Date Time Temp Pulse Resp B/P (MAP) Pulse Ox O2 Delivery O2 Flow Rate FiO2 05/08/17 08:00 88 138/69 05/08/17 07:00 98.5 18 97 Room Air 98.5 Labs Labs Laboratory Tests Test 05/07/17 11:25 05/07/17 12:08 05/07/17 16:59 05/07/17 17:20 White Blood Count 12.9 x10^3/uL (4.0-11.0) Red Blood Count 4.57 x10^6/uL (4.30-5.70) Hemoglobin 12.2 g/dL (13.0-17.5) Hematocrit 37.0 % (39.0-53.0) Mean Corpuscular Volume 81 fL (79-100) Mean Corpuscular Hemoglobin 27 pg (25-35) Mean Corpuscular Hemoglobin Concent 33 g/dL (31-37) Red Cell Distribution Width 15.3 % (11.5-14.5) Platelet Count 329 x10^3/uL (140-400) Neutrophils (%) (Auto) 78 % (31-73) Lymphocytes (%) (Auto) 14 % (24-48) Monocytes (%) (Auto) 6 % (0-9) Eosinophils (%) (Auto) 1 % (0-3) Basophils (%) (Auto) 1 % (0-3) Neutrophils # (Auto) 10.0 x10^3uL (1.8-7.7) Lymphocytes # (Auto) 1.8 x10^3/uL (1.0-4.8) Monocytes # (Auto) 0.8 x10^3/uL (0.0-1.1) Eosinophils # (Auto) 0.2 x10^3/uL (0.0-0.7) Basophils # (Auto) 0.1 x10^3/uL (0.0-0.2) Sodium Level 142 mmol/L (136-145) Potassium Level 3.8 mmol/L (3.5-5.1) Chloride Level 101 mmol/L (98-107) Carbon Dioxide Level 30 mmol/L (21-32) Anion Gap 11 (6-14) Blood Urea Nitrogen 30 mg/dL (8-26) Creatinine 1.1 mg/dL (0.7-1.3) Estimated GFR (Cockcroft-Gault) 64.4 Glucose Level 136 mg/dL (70-99) Lactic Acid Level 2.0 mmol/L (0.4-2.0) Calcium Level 9.1 mg/dL (8.5-10.1) Total Bilirubin 0.3 mg/dL (0.2-1.0) Direct Bilirubin 0.1 mg/dL (0.0-0.2) Aspartate Amino Transf (AST/SGOT) 18 U/L (15-37) Alanine Aminotransferase (ALT/SGPT) 15 U/L (16-63) Alkaline Phosphatase 130 U/L (46-116) Troponin I Quantitative 0.054 ng/mL (0.000-0.055) [id number]-Type Natriuretic Peptide 506 pg/mL (0-449) Total Protein 8.9 g/dL (6.4-8.2) Albumin 3.3 g/dL (3.4-5.0) Lipase 129 U/L (73-393) Urine Collection Type Unknown Urine Color Yellow Urine Clarity Turbid Urine pH 8.0 Urine Specific Warren 1.025 Urine Protein 100 mg/dL (NEG-TRACE) Urine Glucose (UA) 500 mg/dL (NEG) Urine Ketones (Stick) Trace mg/dL (NEG) Urine Blood Moderate (NEG) Urine Nitrite Positive (NEG) Urine Bilirubin Negative (NEG) Urine Urobilinogen Dipstick 0.2 mg/dL (0.2 mg/dL) Urine Leukocyte Esterase Large (NEG) Urine RBC Fobs /HPF (0-2) Urine WBC Tntc /HPF (0-4) Urine Bacteria 0 /HPF (0-FEW) Glucose (Fingerstick) 51 mg/dL (70-99) 51 mg/dL (70-99) Test 05/07/17 17:43 05/07/17 20:33 05/08/17 06:40 05/08/17 07:21 Glucose (Fingerstick) 102 mg/dL (70-99) 317 mg/dL (70-99) 152 mg/dL (70-99) White Blood Count 10.5 x10^3/uL (4.0-11.0) Red Blood Count 3.93 x10^6/uL (4.30-5.70) Hemoglobin 10.5 g/dL (13.0-17.5) Hematocrit 32.3 % (39.0-53.0) Mean Corpuscular Volume 82 fL (79-100) Mean Corpuscular Hemoglobin 27 pg (25-35) Mean Corpuscular Hemoglobin Concent 32 g/dL (31-37) Red Cell Distribution Width 15.2 % (11.5-14.5) Platelet Count 236 x10^3/uL (140-400) Neutrophils (%) (Auto) 66 % (31-73) Lymphocytes (%) (Auto) 22 % (24-48) Monocytes (%) (Auto) 9 % (0-9) Eosinophils (%) (Auto) 3 % (0-3) Basophils (%) (Auto) 1 % (0-3) Neutrophils # (Auto) 6.9 x10^3uL (1.8-7.7) Lymphocytes # (Auto) 2.3 x10^3/uL (1.0-4.8) Monocytes # (Auto) 1.0 x10^3/uL (0.0-1.1) Eosinophils # (Auto) 0.3 x10^3/uL (0.0-0.7) Basophils # (Auto) 0.1 x10^3/uL (0.0-0.2) Sodium Level 142 mmol/L (136-145) Potassium Level 3.5 mmol/L (3.5-5.1) Chloride Level 105 mmol/L (98-107) Carbon Dioxide Level 29 mmol/L (21-32) Anion Gap 8 (6-14) Blood Urea Nitrogen 11 mg/dL (8-26) Creatinine 0.8 mg/dL (0.7-1.3) Estimated GFR (Cockcroft-Gault) 93.0 Glucose Level 166 mg/dL (70-99) Calcium Level 8.2 mg/dL (8.5-10.1) Laboratory Tests Test 05/07/17 11:25 05/07/17 12:08 05/07/17 16:59 05/07/17 17:20 White Blood Count 12.9 x10^3/uL (4.0-11.0) Red Blood Count 4.57 x10^6/uL (4.30-5.70) Hemoglobin 12.2 g/dL (13.0-17.5) Hematocrit 37.0 % (39.0-53.0) Mean Corpuscular Volume 81 fL (79-100) Mean Corpuscular Hemoglobin 27 pg (25-35) Mean Corpuscular Hemoglobin Concent 33 g/dL (31-37) Red Cell Distribution Width 15.3 % (11.5-14.5) Platelet Count 329 x10^3/uL (140-400) Neutrophils (%) (Auto) 78 % (31-73) Lymphocytes (%) (Auto) 14 % (24-48) Monocytes (%) (Auto) 6 % (0-9) Eosinophils (%) (Auto) 1 % (0-3) Basophils (%) (Auto) 1 % (0-3) Neutrophils # (Auto) 10.0 x10^3uL (1.8-7.7) Lymphocytes # (Auto) 1.8 x10^3/uL (1.0-4.8) Monocytes # (Auto) 0.8 x10^3/uL (0.0-1.1) Eosinophils # (Auto) 0.2 x10^3/uL (0.0-0.7) Basophils # (Auto) 0.1 x10^3/uL (0.0-0.2) Sodium Level 142 mmol/L (136-145) Potassium Level 3.8 mmol/L (3.5-5.1) Chloride Level 101 mmol/L (98-107) Carbon Dioxide Level 30 mmol/L (21-32) Anion Gap 11 (6-14) Blood Urea Nitrogen 30 mg/dL (8-26) Creatinine 1.1 mg/dL (0.7-1.3) Estimated GFR (Cockcroft-Gault) 64.4 Glucose Level 136 mg/dL (70-99) Lactic Acid Level 2.0 mmol/L (0.4-2.0) Calcium Level 9.1 mg/dL (8.5-10.1) Total Bilirubin 0.3 mg/dL (0.2-1.0) Direct Bilirubin 0.1 mg/dL (0.0-0.2) Aspartate Amino Transf (AST/SGOT) 18 U/L (15-37) Alanine Aminotransferase (ALT/SGPT) 15 U/L (16-63) Alkaline Phosphatase 130 U/L (46-116) Troponin I Quantitative 0.054 ng/mL (0.000-0.055) KV-[id number]-R-Type Natriuretic Peptide 506 pg/mL (0-449) Total Protein 8.9 g/dL (6.4-8.2) Albumin 3.3 g/dL (3.4-5.0) Lipase 129 U/L (73-393) Urine Collection Type Unknown Urine Color Yellow Urine Clarity Turbid Urine pH 8.0 Urine Specific Warren 1.025 Urine Protein 100 mg/dL (NEG-TRACE) Urine Glucose (UA) 500 mg/dL (NEG) Urine Ketones (Stick) Trace mg/dL (NEG) Urine Blood Moderate (NEG) Urine Nitrite Positive (NEG) Urine Bilirubin Negative (NEG) Urine Urobilinogen Dipstick 0.2 mg/dL (0.2 mg/dL) Urine Leukocyte Esterase Large (NEG) Urine RBC Fobs /HPF (0-2) Urine WBC Tntc /HPF (0-4) Urine Bacteria 0 /HPF (0-FEW) Glucose (Fingerstick) 51 mg/dL (70-99) 51 mg/dL (70-99) Test 05/07/17 17:43 05/07/17 20:33 05/08/17 06:40 05/08/17 07:21 Glucose (Fingerstick) 102 mg/dL (70-99) 317 mg/dL (70-99) 152 mg/dL (70-99) White Blood Count 10.5 x10^3/uL (4.0-11.0) Red Blood Count 3.93 x10^6/uL (4.30-5.70) Hemoglobin 10.5 g/dL (13.0-17.5) Hematocrit 32.3 % (39.0-53.0) Mean Corpuscular Volume 82 fL (79-100) Mean Corpuscular Hemoglobin 27 pg (25-35) Mean Corpuscular Hemoglobin Concent 32 g/dL (31-37) Red Cell Distribution Width 15.2 % (11.5-14.5) Platelet Count 236 x10^3/uL (140-400) Neutrophils (%) (Auto) 66 % (31-73) Lymphocytes (%) (Auto) 22 % (24-48) Monocytes (%) (Auto) 9 % (0-9) Eosinophils (%) (Auto) 3 % (0-3) Basophils (%) (Auto) 1 % (0-3) Neutrophils # (Auto) 6.9 x10^3uL (1.8-7.7) Lymphocytes # (Auto) 2.3 x10^3/uL (1.0-4.8) Monocytes # (Auto) 1.0 x10^3/uL (0.0-1.1) Eosinophils # (Auto) 0.3 x10^3/uL (0.0-0.7) Basophils # (Auto) 0.1 x10^3/uL (0.0-0.2) Sodium Level 142 mmol/L (136-145) Potassium Level 3.5 mmol/L (3.5-5.1) Chloride Level 105 mmol/L (98-107) Carbon Dioxide Level 29 mmol/L (21-32) Anion Gap 8 (6-14) Blood Urea Nitrogen 11 mg/dL (8-26) Creatinine 0.8 mg/dL (0.7-1.3) Estimated GFR (Cockcroft-Gault) 93.0 Glucose Level 166 mg/dL (70-99) Calcium Level 8.2 mg/dL (8.5-10.1) Assessment/Plan Assessment/Plan Chronic right foot wounds. I did discuss the risk benefits alternatives to proceeding with irrigation and debridement of these wounds. I did also stress importance of staying off of his foot if he expects he is to heal. JUAN J LLOYD II, MD May 08, 2017 09:56
--- NOTE | 2017-05-08 10:40 | PDOC2 ---
IM Consult Referring physician Dr Prater, for Foot infection and UTI Date of Admission DATE: 05/08/17 TIME: 10:34 Chief Complaint Chief Complaint This year old male has been admitted with a chief complaint of .foot wound, 2 mths ago his daughter noticed a hole in foot, no trauma, no fever, no n/v/d does have chronic alcaraz for long time Problems: Past Medical History Cardiovascular: CAD, HTN, Hyperlipidemia Psych: Anxiety, Depression Musculoskeletal: Osteoarthritis Renal/: Benign prostatic enlarg., Hematuria Endocrine: Diabetes Past Surgical History Past Surgical History: Tonsillectomy, Other Past Family History Family History: Diabetes, Hypertension, Other Past Social History PSH neg for smoking, etoh and drugs Review of Symptoms Review of Symptoms General ROS: positive for - Psychological ROS: negative Ophthalmic ROS: negative ENT ROS: negative Allergy and Immunology ROS: negative Hematology and Lymphatic: negative Endocrine ROS: negative Respiratory ROS: no cold, cough, dyspnea. Cardiovascular ROS: no chest pain or dyspnea on exertion Gastrointestinal ROS: no abdominal pain, change in bowel habits, or black or bloody stools Genito-Urinary ROS: no dysuria, trouble voiding, or hematuria, has cath in place Musculoskeletal ROS: no pain Neurological ROS: negative Dermatological ROS: no rash Medications Current Medications Aspirin (Ecotrin) 81 mg DAILY PO ; Start 05/08/17 at 09:00 Atorvastatin Calcium (Lipitor) 10 mg QHS PO ; Start 05/08/17 at 21:00 Celecoxib (CeleBREX) 200 mg BID PO ; Start 05/08/17 at 09:00 Dextrose (Dextrose 50%-Water Syringe) 25 gm PRN Q15MIN PRN IV hypoglycemia; Start 05/07/17 at 17:30 Duloxetine HCl (Cymbalta) 60 mg DAILY PO ; Start 05/08/17 at 09:00 Glimepiride (Amaryl) 4 mg DAILY PO ; Start 05/08/17 at 09:00 Lactobacillus Acidophilus (Bacid, Emperatriz-Bid) 1 tab TIDAC PO ; Start 05/08/17 at 07 :30 Metoprolol Tartrate (Lopressor) 25 mg BID PO ; Start 05/08/17 at 09:00 Midodrine (Proamatine) 2.5 mg [id number] PO ; Start 05/08/17 at 08:00 Morphine Sulfate 2 mg PRN Q2HR PRN IV PAIN; Start 05/07/17 at 12:45; Stop at 12:44 Non-Formulary Medication 20 unit PRN DAILY PRN SQ ONLY IF BS >200; Start at 07:30 Ondansetron HCl (Zofran) 4 mg PRN Q8HRS PRN IV NAUSEA/VOMITING; Start 05/07/17 at 12:45; Stop 05/08/17 at 12:44 Piperacillin Sod/ Tazobactam Sod (Zosyn Per Pharmacy) 1 each PRN DAILY PRN MC SEE COMMENTS; Start 05/07/17 at 12:45 Piperacillin Sod/ Tazobactam Sod 3.375 gm/Sodium Chloride 50 ml @ 100 mls/hr 1X ONCE IV Last administered on 05/07/17 13:09; Start 05/07/17 at 13:00; Stop 05/07/17 at 13:29; Status DC Piperacillin Sod/ Tazobactam Sod 3.375 gm/Sodium Chloride 50 ml @ 100 mls/hr Q6HRS IV Last administered on 05/08/17 06:17; Start 05/07/17 at 18:00 Sodium Chloride 500 ml @ 500 mls/hr 1X ONCE IV Last administered on 05/07/17 13:11; Start 05/07/17 at 12:45; Stop 05/07/17 at 13:44; Status DC Sodium Chloride 1,000 ml @ 100 mls/hr 1X ONCE IV Last administered on 16:25; Start 05/07/17 at 12:45; Stop 05/07/17 at 22:44; Status DC Tamsulosin HCl (Flomax) 0.4 mg DAILY PO ; Start 05/08/17 at 09:00 Vancomycin HCl 1 each 1X ONCE MC ; Start 05/09/17 at 13:30; Stop 05/09/17 at 13: 31 Vancomycin HCl (Vanco Per Pharmacy) 1 each PRN DAILY PRN MC SEE COMMENTS Last administered on 05/07/17 13:59; Start 05/07/17 at 12:45 Vancomycin HCl 1.5 gm/Sodium Chloride 500 ml @ 250 mls/hr Q24H IV ; Start at 14:00 Vancomycin HCl 1.75 gm/Sodium Chloride 500 ml @ 250 mls/hr 1X ONCE IV Last administered on 7/6/17at 13:48; Start 05/07/17 at 13:00; Stop 05/07/17 at 14:59; Status DC Allergy Allergies Coded Allergies Type Severity Reaction Last Updated Verified No Known Drug Allergies 02/06/17 No Physical Exam Physical Exam General appearance - alert,well appearing, and in no distress and oriented to person, place, and time Mental Status - alert, oriented to person, place, and time, affect appropriate to mood Head - normal Chest - clear to auscultation, no wheezes, rales or rhonchi, symmetric air entry Heart - S1 and S2 normal Abdomen - soft, nontender, nondistended, no masses or organomegaly Neurological - alert and oriented Musculoskeletal - no muscular tenderness noted Extremities - no pedal edema Skin - warm and dry,, rt foot with two opening , one medial is very deep Labs Laboratory Tests Test 05/07/17 11:25 05/07/17 12:08 05/07/17 16:59 05/07/17 17:20 White Blood Count 12.9 x10^3/uL (4.0-11.0) Red Blood Count 4.57 x10^6/uL (4.30-5.70) Hemoglobin 12.2 g/dL (13.0-17.5) Hematocrit 37.0 % (39.0-53.0) Mean Corpuscular Volume 81 fL (79-100) Mean Corpuscular Hemoglobin 27 pg (25-35) Mean Corpuscular Hemoglobin Concent 33 g/dL (31-37) Red Cell Distribution Width 15.3 % (11.5-14.5) Platelet Count 329 x10^3/uL (140-400) Neutrophils (%) (Auto) 78 % (31-73) Lymphocytes (%) (Auto) 14 % (24-48) Monocytes (%) (Auto) 6 % (0-9) Eosinophils (%) (Auto) 1 % (0-3) Basophils (%) (Auto) 1 % (0-3) Neutrophils # (Auto) 10.0 x10^3uL (1.8-7.7) Lymphocytes # (Auto) 1.8 x10^3/uL (1.0-4.8) Monocytes # (Auto) 0.8 x10^3/uL (0.0-1.1) Eosinophils # (Auto) 0.2 x10^3/uL (0.0-0.7) Basophils # (Auto) 0.1 x10^3/uL (0.0-0.2) Sodium Level 142 mmol/L (136-145) Potassium Level 3.8 mmol/L (3.5-5.1) Chloride Level 101 mmol/L (98-107) Carbon Dioxide Level 30 mmol/L (21-32) Anion Gap 11 (6-14) Blood Urea Nitrogen 30 mg/dL (8-26) Creatinine 1.1 mg/dL (0.7-1.3) Estimated GFR (Cockcroft-Gault) 64.4 Glucose Level 136 mg/dL (70-99) Lactic Acid Level 2.0 mmol/L (0.4-2.0) Calcium Level 9.1 mg/dL (8.5-10.1) Total Bilirubin 0.3 mg/dL (0.2-1.0) Direct Bilirubin 0.1 mg/dL (0.0-0.2) Aspartate Amino Transf (AST/SGOT) 18 U/L (15-37) Alanine Aminotransferase (ALT/SGPT) 15 U/L (16-63) Alkaline Phosphatase 130 U/L (46-116) Troponin I Quantitative 0.054 ng/mL (0.000-0.055) ID-Bfg-Z-Type Natriuretic Peptide 506 pg/mL (0-449) Total Protein 8.9 g/dL (6.4-8.2) Albumin 3.3 g/dL (3.4-5.0) Lipase 129 U/L (73-393) Urine Collection Type Unknown Urine Color Yellow Urine Clarity Turbid Urine pH 8.0 Urine Specific [place] 1.025 Urine Protein 100 mg/dL (NEG-TRACE) Urine Glucose (UA) 500 mg/dL (NEG) Urine Ketones (Stick) Trace mg/dL (NEG) Urine Blood Moderate (NEG) Urine Nitrite Positive (NEG) Urine Bilirubin Negative (NEG) Urine Urobilinogen Dipstick 0.2 mg/dL (0.2 mg/dL) Urine Leukocyte Esterase Large (NEG) Urine RBC Fobs /HPF (0-2) Urine WBC Tntc /HPF (0-4) Urine Bacteria 0 /HPF (0-FEW) Glucose (Fingerstick) 51 mg/dL (70-99) 51 mg/dL (70-99) Test 05/07/17 17:43 05/07/17 20:33 05/08/17 06:40 05/08/17 07:21 Glucose (Fingerstick) 102 mg/dL (70-99) 317 mg/dL (70-99) 152 mg/dL (70-99) White Blood Count 10.5 x10^3/uL (4.0-11.0) Red Blood Count 3.93 x10^6/uL (4.30-5.70) Hemoglobin 10.5 g/dL (13.0-17.5) Hematocrit 32.3 % (39.0-53.0) Mean Corpuscular Volume 82 fL (79-100) Mean Corpuscular Hemoglobin 27 pg (25-35) Mean Corpuscular Hemoglobin Concent 32 g/dL (31-37) Red Cell Distribution Width 15.2 % (11.5-14.5) Platelet Count 236 x10^3/uL (140-400) Neutrophils (%) (Auto) 66 % (31-73) Lymphocytes (%) (Auto) 22 % (24-48) Monocytes (%) (Auto) 9 % (0-9) Eosinophils (%) (Auto) 3 % (0-3) Basophils (%) (Auto) 1 % (0-3) Neutrophils # (Auto) 6.9 x10^3uL (1.8-7.7) Lymphocytes # (Auto) 2.3 x10^3/uL (1.0-4.8) Monocytes # (Auto) 1.0 x10^3/uL (0.0-1.1) Eosinophils # (Auto) 0.3 x10^3/uL (0.0-0.7) Basophils # (Auto) 0.1 x10^3/uL (0.0-0.2) Sodium Level 142 mmol/L (136-145) Potassium Level 3.5 mmol/L (3.5-5.1) Chloride Level 105 mmol/L (98-107) Carbon Dioxide Level 29 mmol/L (21-32) Anion Gap 8 (6-14) Blood Urea Nitrogen 11 mg/dL (8-26) Creatinine 0.8 mg/dL (0.7-1.3) Estimated GFR (Cockcroft-Gault) 93.0 Glucose Level 166 mg/dL (70-99) Calcium Level 8.2 mg/dL (8.5-10.1) Laboratory Tests Test 05/07/17 11:25 05/07/17 12:08 05/07/17 16:59 05/07/17 17:20 White Blood Count 12.9 x10^3/uL (4.0-11.0) Red Blood Count 4.57 x10^6/uL (4.30-5.70) Hemoglobin 12.2 g/dL (13.0-17.5) Hematocrit 37.0 % (39.0-53.0) Mean Corpuscular Volume 81 fL (79-100) Mean Corpuscular Hemoglobin 27 pg (25-35) Mean Corpuscular Hemoglobin Concent 33 g/dL (31-37) Red Cell Distribution Width 15.3 % (11.5-14.5) Platelet Count 329 x10^3/uL (140-400) Neutrophils (%) (Auto) 78 % (31-73) Lymphocytes (%) (Auto) 14 % (24-48) Monocytes (%) (Auto) 6 % (0-9) Eosinophils (%) (Auto) 1 % (0-3) Basophils (%) (Auto) 1 % (0-3) Neutrophils # (Auto) 10.0 x10^3uL (1.8-7.7) Lymphocytes # (Auto) 1.8 x10^3/uL (1.0-4.8) Monocytes # (Auto) 0.8 x10^3/uL (0.0-1.1) Eosinophils # (Auto) 0.2 x10^3/uL (0.0-0.7) Basophils # (Auto) 0.1 x10^3/uL (0.0-0.2) Sodium Level 142 mmol/L (136-145) Potassium Level 3.8 mmol/L (3.5-5.1) Chloride Level 101 mmol/L (98-107) Carbon Dioxide Level 30 mmol/L (21-32) Anion Gap 11 (6-14) Blood Urea Nitrogen 30 mg/dL (8-26) Creatinine 1.1 mg/dL (0.7-1.3) Estimated GFR (Cockcroft-Gault) 64.4 Glucose Level 136 mg/dL (70-99) Lactic Acid Level 2.0 mmol/L (0.4-2.0) Calcium Level 9.1 mg/dL (8.5-10.1) Total Bilirubin 0.3 mg/dL (0.2-1.0) Direct Bilirubin 0.1 mg/dL (0.0-0.2) Aspartate Amino Transf (AST/SGOT) 18 U/L (15-37) Alanine Aminotransferase (ALT/SGPT) 15 U/L (16-63) Alkaline Phosphatase 130 U/L (46-116) Troponin I Quantitative 0.054 ng/mL (0.000-0.055) TH-Dir-M-Type Natriuretic Peptide 506 pg/mL (0-449) Total Protein 8.9 g/dL (6.4-8.2) Albumin 3.3 g/dL (3.4-5.0) Lipase 129 U/L (73-393) Urine Collection Type Unknown Urine Color Yellow Urine Clarity Turbid Urine pH 8.0 Urine Specific [place] 1.025 Urine Protein 100 mg/dL (NEG-TRACE) Urine Glucose (UA) 500 mg/dL (NEG) Urine Ketones (Stick) Trace mg/dL (NEG) Urine Blood Moderate (NEG) Urine Nitrite Positive (NEG) Urine Bilirubin Negative (NEG) Urine Urobilinogen Dipstick 0.2 mg/dL (0.2 mg/dL) Urine Leukocyte Esterase Large (NEG) Urine RBC Fobs /HPF (0-2) Urine WBC Tntc /HPF (0-4) Urine Bacteria 0 /HPF (0-FEW) Glucose (Fingerstick) 51 mg/dL (70-99) 51 mg/dL (70-99) Test 05/07/17 17:43 05/07/17 20:33 05/08/17 06:40 05/08/17 07:21 Glucose (Fingerstick) 102 mg/dL (70-99) 317 mg/dL (70-99) 152 mg/dL (70-99) White Blood Count 10.5 x10^3/uL (4.0-11.0) Red Blood Count 3.93 x10^6/uL (4.30-5.70) Hemoglobin 10.5 g/dL (13.0-17.5) Hematocrit 32.3 % (39.0-53.0) Mean Corpuscular Volume 82 fL (79-100) Mean Corpuscular Hemoglobin 27 pg (25-35) Mean Corpuscular Hemoglobin Concent 32 g/dL (31-37) Red Cell Distribution Width 15.2 % (11.5-14.5) Platelet Count 236 x10^3/uL (140-400) Neutrophils (%) (Auto) 66 % (31-73) Lymphocytes (%) (Auto) 22 % (24-48) Monocytes (%) (Auto) 9 % (0-9) Eosinophils (%) (Auto) 3 % (0-3) Basophils (%) (Auto) 1 % (0-3) Neutrophils # (Auto) 6.9 x10^3uL (1.8-7.7) Lymphocytes # (Auto) 2.3 x10^3/uL (1.0-4.8) Monocytes # (Auto) 1.0 x10^3/uL (0.0-1.1) Eosinophils # (Auto) 0.3 x10^3/uL (0.0-0.7) Basophils # (Auto) 0.1 x10^3/uL (0.0-0.2) Sodium Level 142 mmol/L (136-145) Potassium Level 3.5 mmol/L (3.5-5.1) Chloride Level 105 mmol/L (98-107) Carbon Dioxide Level 29 mmol/L (21-32) Anion Gap 8 (6-14) Blood Urea Nitrogen 11 mg/dL (8-26) Creatinine 0.8 mg/dL (0.7-1.3) Estimated GFR (Cockcroft-Gault) 93.0 Glucose Level 166 mg/dL (70-99) Calcium Level 8.2 mg/dL (8.5-10.1) Vitals Vital Signs Date Time Temp Pulse Resp B/P (MAP) Pulse Ox O2 Delivery O2 Flow Rate FiO2 05/08/17 08:00 88 138/69 05/08/17 07:00 98.5 18 97 Room Air 98.5 Assessment Assessment Rt foot diabetic wound with infection Cath associated UTI BPH Leukocytosis DM h/o C diff Plan Plan cont vanc and zosyn for now I and D today supportive care ARLET RAANDA MD May 08, 2017 10:40
[2017-05-08] MEDS ORDERED: IV RINGERS,LACTATED 1000ML 1,000 ML IV SCH (10:42)
[2017-05-08] MEDS ORDERED: ONDANSETRON PF 4 MG/2 ML VIAL. IV PRN (10:45)
[2017-05-08] MEDS ORDERED: fentaNYL PF VIAL 100 MCG/2 ML VIAL IV PRN ×2 (10:45)
[2017-05-08] MEDS ORDERED: MORPHINE SULFATE 2 MG/ML DISP.SYRIN. IV PRN (10:45)
[2017-05-08] MEDS ORDERED: LIDOCAINE 1% 1 ML SYRINGE. ID PRN (10:45)
[2017-05-08] MEDS ORDERED: HYDROmorphone 2 MG/ML VIAL IV PRN (10:45)
[2017-05-08] MEDS ORDERED: PROCHLORPERAZINE 10 MG/2 ML VIAL. IV PRN (10:45)
[2017-05-08] MEDS ORDERED: INSULIN ASPART 100 UNIT/ML 10ML VIAL. SQ ONE ×2 (10:51→11:00)
[2017-05-08] MEDS ORDERED: LIDOCAINE 2% PF Vial for OR 5 ML VIAL. ONE (11:04)
[2017-05-08] MEDS ORDERED: FAMOTIDINE 20 MG/2 ML VIAL ONE (11:04)
[2017-05-08] MEDS ORDERED: ONDANSETRON PF 4 MG/2 ML VIAL. ONE (11:04)
[2017-05-08] MEDS ORDERED: PROPOFOL 20 ML IV ONE (11:04)
[2017-05-08] MEDS ORDERED: fentaNYL PF VIAL 100 MCG/2 ML VIAL ONE (11:05)
[2017-05-08] MEDS: VANCOMYCIN PER PHARMACY MC PRN (11:25)
[2017-05-08] MEDS ORDERED: PROPOFOL 50 ML IV ONE (11:52)
[2017-05-08] MEDS ORDERED: MIDAZOLAM HCL/PF 2 MG/2 ML VIAL. ONE (11:52)
--- NOTE | 2017-05-08 11:52 | PDOC4 ---
Operative Note Operative Note Date of procedures: 05/08/2017 Surgeon: Dereje Lloyd MD Preoperative diagnosis: Chronic wounds right foot Postoperative diagnosis: Same Procedure performed: Irrigation and debridement of right foot wounds Blood loss: 25mL Findings: medial plantar wound communicates deeply with distal first metatarsal Complications: none Specimens: Cx obtained Reason for procedure: Kaveh is a very pleasant 9-year-old who noticed the development of 2 plantar foot wounds over the past couple months. No history of trauma. Having getting more painful. He also had a small wound develop on the dorsum of his foot. Please see my consult note for further details. We had a discussion of the risks, benefits, and alternatives to the above surgery and elected to proceed. Description of procedure: Patient was greeted in the preoperative area where the correct extremity was marked and verified. He was taken back to the operative suite. He was maintained on his scheduled antibiotics. Once in the OR , he was transferred gently supine to the OR table and had successful induction of a general anesthetic. He was secured to the bed with all pressure points padded. We then proceeded to prep and drape right lower extremity in our usual sterile fashion including Betadine. After this, we conducted a standard preoperative timeout. I then began the procedure by using a curette at the base and periphery of the wounds and a Rongeur to trim back the edges of the wound at the necrotic tissue. Cultures were obtained. After this, I inspected the wounds and felt that I had removed the necrotic tissue. The wounds were trimmed back to bleeding edges. I then irrigated out the wounds with a combination of 3000 mL of sterile fluid. Patient tolerated surgery well. At the conclusion of surgery the foot was cleansed and dried and a sterile dressing was applied. The patient was awakened from anesthesia and transferred gently supine to the recovery room cart and taken to PACU stable and extubated condition. Postop plan is to readmit the patient under the care of his primary care provider. Antibiotics per infectious disease. He shouldn't not bear weight other than through his heel. DEREJE LLOYD II, MD May 08, 2017 11:52
--- NOTE | 2017-05-08 13:39 | ACF ---
RENATE FUNG 05/08/17 1339: Admit Criteria Forms Admit Criteria Forms Admit Criteria Forms OSTEOMYELITIS Clinical Indications for Admission to Inpatient Care (Place 'X' for any and all applicable criteria) Admission is indicated by 1 or more of the following (1)(2)(3)(4)(5)(6): [ ] I. Significant systemic illness indicated by 2 or more of the following: [ ]a) Core (eg rectal) temperature greater or equal ey803J(37.8C) in an adult [ ]b) Oral temperature[A] greater than or equal to 99.3 degrees F ( 37.4 degrees C) in an adult [ ]c) Heart rate greater than 90 beats per minute [ ]d) Respiratory rate greater than 20 breaths per minute or PaCO2 less than 32 mm Hg (4.3 kPa) [ ]e) White blood cell count > 12,000/mm3 (12 x109/L) or < 4000/mm3 ( 4 x109/L) or > 10% band cells [ ] II. Hemodynamic instability [X ] III. Severe pain requiring acute inpatient management [ ] IV. Bacteremia [X ] V. Altered Mental status that is severe or persistent [ ] . Limb-threatening infection [ ] VII. Suspected necrotizing soft tissue infection (e.g., gas in tissue) [ ] VIII.Surgical intervention required (e.g., bone or soft tissue debridement, removal of foreign body, or revascularization procedure) not performable in outpatient or emergency department level of care(7) [ ] IX. Appropriate monitoring and therapy (IV antibiotics) cannot be immediately arranged for home or outpatient setting [ ] X. Failure of outpatient treatment [ ] XI. High-risk comorbid condition present including 1 or more of the following: [ ]a) Poorly controlled diabetes (e.g., HbA1c greater than 10% (0.1)) [ ]b) Vascular insufficiency to affected area [ ]c) Cirrhosis [ ]d) Neutropenia [ ]e) Asplenia [ ]f) Immunosuppression (e.g., chronic systemic corticosteroid use) [ ]g) Symptomatic heart failure [ ] XII. Joint involvement (e.g., septic arthritis) suspected [ ] XIII.Vertebral osteomyelitis [ ] XIV. Skull-base osteomyelitis (e.g.,"malignant external otitis")[A](8)(9)(10 ) Extended stay beyond goal length of stay may be needed for(1)(3)(4)(5)(24)(25): [ ]a) Inadequate clinical response to antibiotics (e.g., continued fever, hypotension) [ ]b) Bacteremia [ ]c) Surgical intervention needed (e.g., beyond superficial debridement)(26) [ ]d) Vertebral osteomyelitis with spinal cord compression, abscess formation, or mechanical instability [ ]e) Antibiotic-resistant organism identified (e.g., methicillin-resistant Staphylococcal aureus) [ ]f) Severe concomitant cellulitis [ ]g) Acute metabolic disorder [ ]h) Unstable comorbidities (e.g., heart failure, renal insufficiency, immunosuppressed state)(28) [ ]i) Clinically significant malnutrition [ ]j) Acute renal failure The original [facility] content created by [employer] has been revised. The portions of the content which have been revised are identified through the use of italic text or in bold, and [facility] [employer] has neither reviewed nor approved the modified material. All other unmodified content is copyright [facility] [employer]dition 2016. ILENE LOMBARDI MD 05/12/17 0357: Admit Criteria Forms Admit Criteria Forms Admit Criteria Forms I am unable to edit this form. This patient was placed as observation status. This is the only avenue in our electronic medical record for me to document this. All of the above information is not my professional medical opinion. RENATE FUNG May 08, 2017 13:39 ILENE LOMBARDI MD May 12, 2017 03:57
[2017-05-08] MEDS ORDERED: VANCOMYCIN 1.5 GM in IV NORMAL SALINE 500ML BAG 500 ML IV SCH (14:00)
[2017-05-08] MEDS: ATORVASTATIN CALCIUM 10 MG TABLET. PO SCH (20:02)
[2017-05-09 03:21] VITALS: BP 136/67
[2017-05-09] MEDS: MIDODRINE 2.5 MG TABLET PO SCH ×3 (04:58→17:45)
[2017-05-09] MEDS: LACTOBACILLUS ACIDOPH & BULGAR 1 TABLET. PO SCH ×3 (04:58→16:52)
[2017-05-09] MEDS: PIPERACILLIN/TAZOBACTAM 3.375 GM in IV NORMAL SALINE 50ML 50 ML IV SCH ×3 (04:59→17:45)
[2017-05-09 07:00] VITALS: BP 156/68
--- NOTE | 2017-05-09 07:45 | PDOC ---
ORTHO PROGRESS NOTES Subjective Doing ok, no new complaints Vitals Vital Signs Date Time Temp Pulse Resp B/P (MAP) Pulse Ox O2 Delivery O2 Flow Rate FiO2 05/09/17 04:58 74 136/67 05/09/17 03:21 97.6 18 94 Room Air 97.6 05/08/17 12:34 8 Labs Laboratory Tests Test 05/07/17 11:25 05/07/17 12:08 05/07/17 16:59 05/07/17 17:20 White Blood Count 12.9 x10^3/uL (4.0-11.0) Red Blood Count 4.57 x10^6/uL (4.30-5.70) Hemoglobin 12.2 g/dL (13.0-17.5) Hematocrit 37.0 % (39.0-53.0) Mean Corpuscular Volume 81 fL (79-100) Mean Corpuscular Hemoglobin 27 pg (25-35) Mean Corpuscular Hemoglobin Concent 33 g/dL (31-37) Red Cell Distribution Width 15.3 % (11.5-14.5) Platelet Count 329 x10^3/uL (140-400) Neutrophils (%) (Auto) 78 % (31-73) Lymphocytes (%) (Auto) 14 % (24-48) Monocytes (%) (Auto) 6 % (0-9) Eosinophils (%) (Auto) 1 % (0-3) Basophils (%) (Auto) 1 % (0-3) Neutrophils # (Auto) 10.0 x10^3uL (1.8-7.7) Lymphocytes # (Auto) 1.8 x10^3/uL (1.0-4.8) Monocytes # (Auto) 0.8 x10^3/uL (0.0-1.1) Eosinophils # (Auto) 0.2 x10^3/uL (0.0-0.7) Basophils # (Auto) 0.1 x10^3/uL (0.0-0.2) Sodium Level 142 mmol/L (136-145) Potassium Level 3.8 mmol/L (3.5-5.1) Chloride Level 101 mmol/L (98-107) Carbon Dioxide Level 30 mmol/L (21-32) Anion Gap 11 (6-14) Blood Urea Nitrogen 30 mg/dL (8-26) Creatinine 1.1 mg/dL (0.7-1.3) Estimated GFR (Cockcroft-Gault) 64.4 Glucose Level 136 mg/dL (70-99) Lactic Acid Level 2.0 mmol/L (0.4-2.0) Calcium Level 9.1 mg/dL (8.5-10.1) Total Bilirubin 0.3 mg/dL (0.2-1.0) Direct Bilirubin 0.1 mg/dL (0.0-0.2) Aspartate Amino Transf (AST/SGOT) 18 U/L (15-37) Alanine Aminotransferase (ALT/SGPT) 15 U/L (16-63) Alkaline Phosphatase 130 U/L (46-116) Troponin I Quantitative 0.054 ng/mL (0.000-0.055) ZH-Zvo-J-Type Natriuretic Peptide 506 pg/mL (0-449) Total Protein 8.9 g/dL (6.4-8.2) Albumin 3.3 g/dL (3.4-5.0) Lipase 129 U/L (73-393) Urine Collection Type Unknown Urine Color Yellow Urine Clarity Turbid Urine pH 8.0 Urine Specific [place] 1.025 Urine Protein 100 mg/dL (NEG-TRACE) Urine Glucose (UA) 500 mg/dL (NEG) Urine Ketones (Stick) Trace mg/dL (NEG) Urine Blood Moderate (NEG) Urine Nitrite Positive (NEG) Urine Bilirubin Negative (NEG) Urine Urobilinogen Dipstick 0.2 mg/dL (0.2 mg/dL) Urine Leukocyte Esterase Large (NEG) Urine RBC Fobs /HPF (0-2) Urine WBC Tntc /HPF (0-4) Urine Bacteria 0 /HPF (0-FEW) Glucose (Fingerstick) 51 mg/dL (70-99) 51 mg/dL (70-99) Test 05/07/17 17:43 05/07/17 20:33 05/08/17 06:40 05/08/17 07:21 Glucose (Fingerstick) 102 mg/dL (70-99) 317 mg/dL (70-99) 152 mg/dL (70-99) White Blood Count 10.5 x10^3/uL (4.0-11.0) Red Blood Count 3.93 x10^6/uL (4.30-5.70) Hemoglobin 10.5 g/dL (13.0-17.5) Hematocrit 32.3 % (39.0-53.0) Mean Corpuscular Volume 82 fL (79-100) Mean Corpuscular Hemoglobin 27 pg (25-35) Mean Corpuscular Hemoglobin Concent 32 g/dL (31-37) Red Cell Distribution Width 15.2 % (11.5-14.5) Platelet Count 236 x10^3/uL (140-400) Neutrophils (%) (Auto) 66 % (31-73) Lymphocytes (%) (Auto) 22 % (24-48) Monocytes (%) (Auto) 9 % (0-9) Eosinophils (%) (Auto) 3 % (0-3) Basophils (%) (Auto) 1 % (0-3) Neutrophils # (Auto) 6.9 x10^3uL (1.8-7.7) Lymphocytes # (Auto) 2.3 x10^3/uL (1.0-4.8) Monocytes # (Auto) 1.0 x10^3/uL (0.0-1.1) Eosinophils # (Auto) 0.3 x10^3/uL (0.0-0.7) Basophils # (Auto) 0.1 x10^3/uL (0.0-0.2) Sodium Level 142 mmol/L (136-145) Potassium Level 3.5 mmol/L (3.5-5.1) Chloride Level 105 mmol/L (98-107) Carbon Dioxide Level 29 mmol/L (21-32) Anion Gap 8 (6-14) Blood Urea Nitrogen 11 mg/dL (8-26) Creatinine 0.8 mg/dL (0.7-1.3) Estimated GFR (Cockcroft-Gault) 93.0 Glucose Level 166 mg/dL (70-99) Calcium Level 8.2 mg/dL (8.5-10.1) Test 05/08/17 10:45 05/08/17 11:00 05/08/17 14:06 05/08/17 16:12 Glucose (Fingerstick) 392 mg/dL (70-99) 104 mg/dL (70-99) 141 mg/dL (70-99) Clostridium difficile Toxin (PCR) Positive (Negative) Test 05/08/17 20:16 Glucose (Fingerstick) 273 mg/dL (70-99) Laboratory Tests Test 05/08/17 10:45 05/08/17 11:00 05/08/17 14:06 05/08/17 16:12 Glucose (Fingerstick) 392 mg/dL (70-99) 104 mg/dL (70-99) 141 mg/dL (70-99) Clostridium difficile Toxin (PCR) Positive (Negative) Test 05/08/17 20:16 Glucose (Fingerstick) 273 mg/dL (70-99) Notes A and A in bed RLE: some bloody drainage toes warm Assessment and Plan medial plantar wound with communication to bone small wound dorsal midfoot and lateral forefoot wound care abx PT to help mobilize JUAN J LLOYD II, MD May 09, 2017 07:45
--- NOTE | 2017-05-09 08:56 | PDOC ---
Infectious Disease Note Subjective Subjective feeling better ROS ROS GEN: Denies fevers, chills, sweats HEENT: Denies blurred vision, sore throat CV: Denies chest pain RESP: Denies shortness of air, cough GI: Denies n/v/d NEURO: Denies confusion, dizziness MSK: Denies weakness, joint pain/swelling Vital Sign Vital Signs Vital Signs Date Time Temp Pulse Resp B/P (MAP) Pulse Ox O2 Delivery O2 Flow Rate FiO2 05/09/17 07:00 97.3 71 20 156/68 (97) 97 Room Air 97.3 05/08/17 12:34 8 Physical Exam PHYSICAL EXAM GENERAL: NAD, Alert HEENT: PERRL, OC/OP NECK: Supple, no JVD, no LN LUNGS: Clear HEART: S1S2, no gallop, no murmur ABD: Soft, NT, no organomegaly, no rebound EXT: No edema, no cyanosis,, post surgical foot dressing not opened 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
[2017-05-09] MEDS: ASPIRIN ENTERIC COATED 81 MG TABLET.DR. PO SCH (09:05)
[2017-05-09] MEDS: CELECOXIB 200 MG CAPSULE. PO SCH ×2 (09:05→21:08)
[2017-05-09] MEDS: TAMSULOSIN 0.4 MG CAP.ER.24H. PO SCH (09:05)
[2017-05-09] MEDS: DULoxetine HCL 30 MG CAPSULE.DR PO SCH (09:06)
[2017-05-09] MEDS: VANCOMYCIN 250 MG/5 ML ORAL SOLUTION. PO SCH ×4 (09:06→21:09)
[2017-05-09] MEDS: METOPROLOL TART IMMED RELEASE 25 MG TABLET. PO SCH ×2 (09:06→21:09)
[2017-05-09] MEDS: GLIMEPIRIDE 2 MG TABLET. PO SCH (09:06)
[2017-05-09] MEDS: INSULIN DETEMIR 300 UNITS/3 ML INSULN.PEN. SQ PRN (09:36)
[2017-05-09 11:00] VITALS: BP 174/81
[2017-05-09] MEDS ORDERED: INSULIN ASPART 300 UNITS/3 ML INSULN.PEN SQ ONE (12:15)
[2017-05-09] MEDS ORDERED: DEXTROSE 50% 25 GM / 50ML DISP.SYRIN. IV PRN ×2 (12:30→12:45)
[2017-05-09] MEDS ORDERED: INSULIN ASPART 300 UNITS/3 ML INSULN.PEN SQ SCH (12:30)
[2017-05-09] MEDS: INSULIN ASPART 300 UNITS/3 ML INSULN.PEN SQ SCH ×2 (13:00→16:46)
--- NOTE | 2017-05-09 13:45 | PDOC ---
SUBJECTIVE Subjective Looks comfortable in his recliner chair, denies new complaints OBJECTIVE Objective Blood pressure slightly elevated Vital Signs Vital Signs Date Time Temp Pulse Resp B/P (MAP) Pulse Ox O2 Delivery O2 Flow Rate FiO2 05/09/17 11:00 96.6 68 20 174/81 (112) 98 Room Air 96.6 05/09/17 09:06 71 156/68 05/09/17 07:30 Room Air 05/09/17 07:00 97.3 71 20 156/68 (97) 97 Room Air 97.3 05/09/17 04:58 74 136/67 05/09/17 03:21 97.6 74 18 136/67 (90) 94 Room Air 97.6 05/08/17 23:28 97.9 81 18 139/60 (86) 97 Room Air 97.9 05/08/17 20:12 Room Air 05/08/17 20:03 94 143/75 05/08/17 19:42 97.9 94 18 143/75 (97) 98 Room Air 97.9 05/08/17 18:00 77 130/62 05/08/17 16:01 77 18 130/62 (84) Room Air 05/08/17 15:53 82 18 119/47 (71) Room Air 05/08/17 15:01 77 18 107/55 (72) Room Air 05/08/17 14:01 84 18 113/59 (77) Room Air 05/08/17 13:45 79 18 144/73 (96) Room Air I & O Intake and Output 05/09/17 07:00 Intake Total 910 ml Output Total 2650 ml Balance -1740 ml Intake Oral 560 ml IV Total 350 ml Output Urine Total 2650 ml # Bowel Movements 2 PHYSICAL EXAM Physical Exam Lungs fairly clear Heart regular rate and rhythm Abdomen is soft Diabetic foot ulcer, trace edema ASSESSMENT/PLAN Assessment/Plan 1-Rt foot diabetic wound with infection s/p I and D on Zosyn 2- Cath associated UTI 3-BPH 4-Leukocytosis 5- DM 6- C diff on vancomycin IV Problems: COMMENT Lab Laboratory Tests Test 05/08/17 14:06 05/08/17 16:12 05/08/17 20:16 05/09/17 07:20 Glucose (Fingerstick) 104 mg/dL (70-99) 141 mg/dL (70-99) 273 mg/dL (70-99) 397 mg/dL (70-99) Test 05/09/17 11:21 Glucose (Fingerstick) 443 mg/dL (70-99) ARTEMIO BRICENO MD May 09, 2017 13:45
[2017-05-09] MEDS: VANCOMYCIN PER PHARMACY MC PRN (14:14)
[2017-05-09] MEDS: LOSARTAN POTASSIUM 50 MG TABLET. PO SCH (14:35)
[2017-05-09] MEDS: VANCOMYCIN 1.5 GM in IV NORMAL SALINE 500ML BAG 500 ML IV SCH (14:37)
[2017-05-09 15:00] VITALS: BP 149/71
[2017-05-09 19:00] VITALS: BP 128/73
[2017-05-09] MEDS: ATORVASTATIN CALCIUM 10 MG TABLET. PO SCH (21:08)
[2017-05-09 23:00] VITALS: BP 135/75
[2017-05-10] MEDS: PIPERACILLIN/TAZOBACTAM 3.375 GM in IV NORMAL SALINE 50ML 50 ML IV SCH ×2 (00:06→05:30)
[2017-05-10 03:00] VITALS: BP 142/72
[2017-05-10 04:39] LABS: HEMATOCRIT 30.3 % (39.0-53.0); HEMOGLOBIN 9.9 g/dL (13.0-17.5); RED BLOOD COUNT 3.7 x10^6/uL (4.30-5.70); RED CELL DISTRIBUTION WIDTH 14.9 % (11.5-14.5); WHITE BLOOD COUNT 6.6 x10^3/uL (4.0-11.0)
[2017-05-10 05:58] LABS: CALCIUM 8.7 mg/dL (8.5-10.1); CREATININE 0.9 mg/dL (0.7-1.3); GFR 81.2; POTASSIUM 4.1 mmol/L (3.5-5.1)
[2017-05-10 07:00] VITALS: BP 154/76
[2017-05-10] MEDS: ASPIRIN ENTERIC COATED 81 MG TABLET.DR. PO SCH (07:49)
[2017-05-10] MEDS: TAMSULOSIN 0.4 MG CAP.ER.24H. PO SCH (07:49)
[2017-05-10] MEDS: VANCOMYCIN 250 MG/5 ML ORAL SOLUTION. PO SCH ×4 (07:49→21:13)
[2017-05-10] MEDS: LACTOBACILLUS ACIDOPH & BULGAR 1 TABLET. PO SCH ×3 (07:49→17:13)
[2017-05-10] MEDS: DULoxetine HCL 30 MG CAPSULE.DR PO SCH (07:49)
[2017-05-10] MEDS: GLIMEPIRIDE 2 MG TABLET. PO SCH (07:49)
[2017-05-10] MEDS: CELECOXIB 200 MG CAPSULE. PO SCH ×2 (07:49→21:13)
[2017-05-10] MEDS: VANCOMYCIN 1.5 GM in IV NORMAL SALINE 500ML BAG 500 ML IV SCH (07:50)
[2017-05-10] MEDS: LOSARTAN POTASSIUM 50 MG TABLET. PO SCH (07:53)
[2017-05-10] MEDS: MIDODRINE 2.5 MG TABLET PO SCH ×3 (07:54→17:14)
[2017-05-10] MEDS: METOPROLOL TART IMMED RELEASE 25 MG TABLET. PO SCH ×2 (07:54→21:14)
[2017-05-10] MEDS: INSULIN ASPART 300 UNITS/3 ML INSULN.PEN SQ SCH ×3 (08:03→17:18)
--- NOTE | 2017-05-10 08:22 | PDOC ---
Infectious Disease Note Subjective Subjective feeling better hungry ROS ROS GEN: Denies fevers, chills, sweats HEENT: Denies blurred vision, sore throat CV: Denies chest pain RESP: Denies shortness of air, cough GI: Denies n/v/d NEURO: Denies confusion, dizziness MSK: Denies weakness, joint pain/swelling Vital Sign Vital Signs Vital Signs Date Time Temp Pulse Resp B/P (MAP) Pulse Ox O2 Delivery O2 Flow Rate FiO2 05/10/17 07:54 75 154/76 05/10/17 03:00 97.6 18 98 Room Air 97.6 Physical Exam PHYSICAL EXAM GENERAL: NAD, Alert HEENT: PERRL, OC/OP- clear NECK: Supple, no JVD, no LN LUNGS: Clear HEART: S1S2, no gallop, no murmur ABD: Soft, NT, no organomegaly, no rebound Marley EXT: No edema, no cyanosis, Foot dressed GREASE BUFFER: Alert, oriented x 3, no focal neurologic deficit SKIN: No rash IV: ok Labs Lab Laboratory Tests Test 05/09/17 11:21 05/09/17 13:15 05/09/17 14:12 05/09/17 16:31 Glucose (Fingerstick) 443 mg/dL (70-99) 266 mg/dL (70-99) 147 mg/dL (70-99) Vancomycin Level Trough 8.6 mcg/mL (10.0-20.0) Vancomycin Last Dose Date 05/08/17 Vancomycin Last Dose Time 1400 Test 05/09/17 20:32 05/10/17 04:20 05/10/17 05:40 05/10/17 07:48 Glucose (Fingerstick) 187 mg/dL (70-99) 72 mg/dL (70-99) 200 mg/dL (70-99) White Blood Count 6.6 x10^3/uL (4.0-11.0) Red Blood Count 3.70 x10^6/uL (4.30-5.70) Hemoglobin 9.9 g/dL (13.0-17.5) Hematocrit 30.3 % (39.0-53.0) Mean Corpuscular Volume 82 fL (79-100) Mean Corpuscular Hemoglobin 27 pg (25-35) Mean Corpuscular Hemoglobin Concent 33 g/dL (31-37) Red Cell Distribution Width 14.9 % (11.5-14.5) Platelet Count 225 x10^3/uL (140-400) Sodium Level 143 mmol/L (136-145) Potassium Level 4.1 mmol/L (3.5-5.1) Chloride Level 105 mmol/L (98-107) Carbon Dioxide Level 32 mmol/L (21-32) Anion Gap 6 (6-14) Blood Urea Nitrogen 17 mg/dL (8-26) Creatinine 0.9 mg/dL (0.7-1.3) Estimated GFR (Cockcroft-Gault) 81.2 Glucose Level 58 mg/dL (70-99) Calcium Level 8.7 mg/dL (8.5-10.1) Micro Proteus mirabilis Scant growth AEROBIC RES 2 Preliminary Staphylococcus aureus Scant growth AEROBIC RES 3 Preliminary Enterococcus species Scant growth ANTIMICROBIAL SUSCEPTIBILITY Preliminary Comment S = Susceptible; I = Intermediate; R = Resistant P = Positive; N = Negative MICS are expressed in micrograms per mL Antibiotic RSLT#1 RSLT#2 RSLT#3 RSLT#4 Ampicillin R Cefazolin S Cefepime S Ceftriaxone S Cefuroxime S Ciprofloxacin S Ertapenem S Gentamicin R CONTINUED ON NEXT PAGE RUN DATE: 05/10/17 PAGE 2 RUN TIME: [address] [facility] [address] [place] [address] Rigoberto Hernandez M.D., [employer] Scientist SPEC: [id number] PATIENT: PABLO SAAVEDRAL [id number] ( Continued) Procedure Result ANTIMICROBIAL SUSCEPTIBILITY Preliminary (continued) Levofloxacin S Piperacillin R Tetracycline R Tobramycin S Trimethoprim/Sulfa S Objective Assessment Rt foot diabetic wound with infection s/p I and D 05/08 - Proteus/Staph Cath associated UTI BPH Leukocytosis DM C diff + 05/08 Plan Plan of Care cont antibiotics but Rocephin flagyl instead of Zosyn Cont IV Vanc and po vanc check cultures F/u labs TOYA MAI MD May 10, 2017 08:22
--- NOTE | 2017-05-10 09:51 | PDOC ---
ORTHO PROGRESS NOTES Subjective Feels hungry, not complaining of pain Vitals Vital Signs Date Time Temp Pulse Resp B/P (MAP) Pulse Ox O2 Delivery O2 Flow Rate FiO2 05/10/17 07:54 75 154/76 05/10/17 07:00 97.6 20 99 Room Air 97.6 Labs Laboratory Tests Test 05/08/17 10:45 05/08/17 11:00 05/08/17 14:06 05/08/17 16:12 Glucose (Fingerstick) 392 mg/dL (70-99) 104 mg/dL (70-99) 141 mg/dL (70-99) Clostridium difficile Toxin (PCR) Positive (Negative) Test 05/08/17 20:16 05/09/17 07:20 05/09/17 11:21 05/09/17 13:15 Glucose (Fingerstick) 273 mg/dL (70-99) 397 mg/dL (70-99) 443 mg/dL (70-99) Vancomycin Level Trough 8.6 mcg/mL (10.0-20.0) Vancomycin Last Dose Date 05/08/17 Vancomycin Last Dose Time 1400 Test 05/09/17 14:12 05/09/17 16:31 05/09/17 20:32 05/10/17 04:20 Glucose (Fingerstick) 266 mg/dL (70-99) 147 mg/dL (70-99) 187 mg/dL (70-99) White Blood Count 6.6 x10^3/uL (4.0-11.0) Red Blood Count 3.70 x10^6/uL (4.30-5.70) Hemoglobin 9.9 g/dL (13.0-17.5) Hematocrit 30.3 % (39.0-53.0) Mean Corpuscular Volume 82 fL (79-100) Mean Corpuscular Hemoglobin 27 pg (25-35) Mean Corpuscular Hemoglobin Concent 33 g/dL (31-37) Red Cell Distribution Width 14.9 % (11.5-14.5) Platelet Count 225 x10^3/uL (140-400) Sodium Level 143 mmol/L (136-145) Potassium Level 4.1 mmol/L (3.5-5.1) Chloride Level 105 mmol/L (98-107) Carbon Dioxide Level 32 mmol/L (21-32) Anion Gap 6 (6-14) Blood Urea Nitrogen 17 mg/dL (8-26) Creatinine 0.9 mg/dL (0.7-1.3) Estimated GFR (Cockcroft-Gault) 81.2 Glucose Level 58 mg/dL (70-99) Calcium Level 8.7 mg/dL (8.5-10.1) Test 05/10/17 05:40 05/10/17 07:48 Glucose (Fingerstick) 72 mg/dL (70-99) 200 mg/dL (70-99) Laboratory Tests Test 05/09/17 11:21 05/09/17 13:15 05/09/17 14:12 05/09/17 16:31 Glucose (Fingerstick) 443 mg/dL (70-99) 266 mg/dL (70-99) 147 mg/dL (70-99) Vancomycin Level Trough 8.6 mcg/mL (10.0-20.0) Vancomycin Last Dose Date 05/08/17 Vancomycin Last Dose Time 1400 Test 05/09/17 20:32 05/10/17 04:20 05/10/17 05:40 05/10/17 07:48 Glucose (Fingerstick) 187 mg/dL (70-99) 72 mg/dL (70-99) 200 mg/dL (70-99) White Blood Count 6.6 x10^3/uL (4.0-11.0) Red Blood Count 3.70 x10^6/uL (4.30-5.70) Hemoglobin 9.9 g/dL (13.0-17.5) Hematocrit 30.3 % (39.0-53.0) Mean Corpuscular Volume 82 fL (79-100) Mean Corpuscular Hemoglobin 27 pg (25-35) Mean Corpuscular Hemoglobin Concent 33 g/dL (31-37) Red Cell Distribution Width 14.9 % (11.5-14.5) Platelet Count 225 x10^3/uL (140-400) Sodium Level 143 mmol/L (136-145) Potassium Level 4.1 mmol/L (3.5-5.1) Chloride Level 105 mmol/L (98-107) Carbon Dioxide Level 32 mmol/L (21-32) Anion Gap 6 (6-14) Blood Urea Nitrogen 17 mg/dL (8-26) Creatinine 0.9 mg/dL (0.7-1.3) Estimated GFR (Cockcroft-Gault) 81.2 Glucose Level 58 mg/dL (70-99) Calcium Level 8.7 mg/dL (8.5-10.1) Notes A and A in bed RLE: dressing intact toes warm wounds with some dried bloody drainage, look fairly clean Assessment and Plan Deep wound with comm. to bone discussed with Dr. Alexsandra abel per primary, do not anticipate further surgery JUAN J LLOYD II, MD May 10, 2017 09:51
[2017-05-10] MEDS: metroNIDAZOLE 500 MG TABLET PO SCH ×2 (10:04→21:13)
[2017-05-10 11:00] VITALS: BP 147/76
--- NOTE | 2017-05-10 11:27 | PDOC ---
SUBJECTIVE Subjective looks comfortable , no new complaints, appetite ok OBJECTIVE Vital Signs Vital Signs Date Time Temp Pulse Resp B/P (MAP) Pulse Ox O2 Delivery O2 Flow Rate FiO2 05/10/17 07:54 75 154/76 05/10/17 07:54 75 154/76 05/10/17 07:53 75 154/76 05/10/17 07:00 97.6 75 20 154/76 (102) 99 Room Air 97.6 05/10/17 03:00 97.6 62 18 142/72 (95) 98 Room Air 97.6 05/09/17 23:00 98.0 60 18 135/75 (95) 91 Room Air 98.0 05/09/17 21:09 67 128/73 05/09/17 19:45 Room Air 05/09/17 19:00 97.8 67 18 128/73 (91) 96 Room Air 97.8 05/09/17 17:45 149/71 05/09/17 15:00 97.5 72 20 149/71 (97) 100 Room Air 97.5 05/09/17 14:35 68 174/81 05/09/17 14:35 174/81 I & O Intake and Output 05/10/17 07:00 Intake Total 1200 ml Output Total 1950 ml Balance -750 ml Intake Oral 600 ml IV Total 600 ml Output Urine Total 1950 ml # Bowel Movements 1 PHYSICAL EXAM Physical Exam no change in exam ASSESSMENT/PLAN Assessment/Plan 1-Rt foot diabetic wound with infection s/p I and D on Rocephin and flagyl now 2- Cath associated UTI 3-BPH 4-Leukocytosis improved 5- DM 6- C diff on vancomycin IV and P.O Problems: COMMENT Lab Laboratory Tests Test 05/09/17 13:15 05/09/17 14:12 05/09/17 16:31 05/09/17 20:32 Vancomycin Level Trough 8.6 mcg/mL (10.0-20.0) Vancomycin Last Dose Date 05/08/17 Vancomycin Last Dose Time 1400 Glucose (Fingerstick) 266 mg/dL (70-99) 147 mg/dL (70-99) 187 mg/dL (70-99) Test 05/10/17 04:20 05/10/17 05:40 05/10/17 07:48 White Blood Count 6.6 x10^3/uL (4.0-11.0) Red Blood Count 3.70 x10^6/uL (4.30-5.70) Hemoglobin 9.9 g/dL (13.0-17.5) Hematocrit 30.3 % (39.0-53.0) Mean Corpuscular Volume 82 fL (79-100) Mean Corpuscular Hemoglobin 27 pg (25-35) Mean Corpuscular Hemoglobin Concent 33 g/dL (31-37) Red Cell Distribution Width 14.9 % (11.5-14.5) Platelet Count 225 x10^3/uL (140-400) Sodium Level 143 mmol/L (136-145) Potassium Level 4.1 mmol/L (3.5-5.1) Chloride Level 105 mmol/L (98-107) Carbon Dioxide Level 32 mmol/L (21-32) Anion Gap 6 (6-14) Blood Urea Nitrogen 17 mg/dL (8-26) Creatinine 0.9 mg/dL (0.7-1.3) Estimated GFR (Cockcroft-Gault) 81.2 Glucose Level 58 mg/dL (70-99) Calcium Level 8.7 mg/dL (8.5-10.1) Glucose (Fingerstick) 72 mg/dL (70-99) 200 mg/dL (70-99) ARTEMIO BRICENO MD May 10, 2017 11:27
[2017-05-10 15:00] VITALS: BP 141/76
[2017-05-10 19:00] VITALS: BP 135/62
[2017-05-10] MEDS: ATORVASTATIN CALCIUM 10 MG TABLET. PO SCH (21:13)
[2017-05-10 23:00] VITALS: BP 116/60
[2017-05-11 03:00] VITALS: BP 121/62
[2017-05-11] MEDS: VANCOMYCIN 1.5 GM in IV NORMAL SALINE 500ML BAG 500 ML IV SCH ×2 (03:06→21:21)
[2017-05-11] MEDS: VANCOMYCIN PER PHARMACY MC PRN (03:44)
[2017-05-11 07:00] VITALS: BP 167/75
[2017-05-11] MEDS: LACTOBACILLUS ACIDOPH & BULGAR 1 TABLET. PO SCH ×3 (08:04→17:45)
[2017-05-11] MEDS: LOSARTAN POTASSIUM 50 MG TABLET. PO SCH (08:05)
[2017-05-11] MEDS: TAMSULOSIN 0.4 MG CAP.ER.24H. PO SCH (08:05)
[2017-05-11] MEDS: DULoxetine HCL 30 MG CAPSULE.DR PO SCH (08:05)
[2017-05-11] MEDS: metroNIDAZOLE 500 MG TABLET PO SCH ×2 (08:06→21:22)
[2017-05-11] MEDS: GLIMEPIRIDE 2 MG TABLET. PO SCH (08:06)
[2017-05-11] MEDS: CELECOXIB 200 MG CAPSULE. PO SCH ×2 (08:06→21:22)
[2017-05-11] MEDS: METOPROLOL TART IMMED RELEASE 25 MG TABLET. PO SCH ×2 (08:06→21:22)
[2017-05-11] MEDS: ASPIRIN ENTERIC COATED 81 MG TABLET.DR. PO SCH (08:06)
[2017-05-11] MEDS: MIDODRINE 2.5 MG TABLET PO SCH ×3 (08:06→17:45)
[2017-05-11] MEDS: VANCOMYCIN 250 MG/5 ML ORAL SOLUTION. PO SCH ×4 (08:14→21:22)
[2017-05-11] MEDS: INSULIN ASPART 300 UNITS/3 ML INSULN.PEN SQ SCH ×3 (08:17→17:49)
[2017-05-11] MEDS: INSULIN DETEMIR 300 UNITS/3 ML INSULN.PEN. SQ PRN (08:18)
--- NOTE | 2017-05-11 08:23 | PDOC ---
GENERAL General: vss and afebrile. awake and alert and hungry. sugars pretty good. multi organism foot infection by cultures and osteo on mri prior to admit. will continue present antibiotics and get wound care opinion on treatment options also. Problems: VITAL SIGNS Vital Signs: Vital Signs Date Time Temp Pulse Resp B/P (MAP) Pulse Ox O2 Delivery O2 Flow Rate FiO2 05/11/17 08:06 70 167/75 05/11/17 07:00 98.5 18 95 Room Air 98.5 I & O I & O Intake and Output 05/11/17 07:00 Intake Total 1555 ml Output Total 3600 ml Balance -2045 ml Intake Oral 1020 ml IV Total 535 ml Output Urine Total 3600 ml # Bowel Movements 5 ALLERGIES Allergies: Allergies Coded Allergies Type Severity Reaction Last Updated Verified Influenza Virus Vaccines Allergy Intermediate 05/09/17 Yes MEDS Medications: Current Medications Medications (Trade) Dose Ordered Sig/Chay Start Time Stop Time Status Last Admin Dose Admin Aspirin (Ecotrin) 81 mg DAILY 05/08/17 09:00 05/11/17 08:06 81 MG Atorvastatin Calcium (Lipitor) 10 mg QHS 05/08/17 21:00 05/10/17 21:13 10 MG Ceftriaxone Sodium 2 gm/ Sodium Chloride 100 ml @ 200 mls/hr Q24H 05/10/17 08:30 05/11/17 08:07 200 MLS/HR Celecoxib (CeleBREX) 200 mg BID 05/08/17 09:00 05/11/17 08:06 200 MG Dextrose (Dextrose 50%-Water Syringe) 12.5 gm PRN Q15MIN PRN 05/09/17 12:45 Duloxetine HCl (Cymbalta) 60 mg DAILY 05/08/17 09:00 05/11/17 08:05 60 MG Famotidine (Pepcid) 20 mg STK-MED ONCE 05/08/17 11:04 05/08/17 11:05 DC Fentanyl Citrate (Fentanyl 2ml Vial) 100 mcg STK-MED ONCE 05/08/17 11:05 05/08/17 11:06 DC Glimepiride (Amaryl) 4 mg DAILY 05/08/17 09:00 05/11/17 08:06 4 MG Hydromorphone HCl (Dilaudid) 0.5 mg PRN Q10MIN PRN 05/08/17 10:45 05/09/17 10:44 DC Insulin Aspart (NovoLOG VIAL) 10 unit 1X ONCE 05/08/17 11:00 05/08/17 11:01 DC 05/08/17 10:55 10 UNIT Insulin Aspart (NovoLOG) 0-7 UNITS TIDWMEALS 05/09/17 13:00 05/11/17 08:17 7 UNITS Insulin Detemir (Levemir) 20 units PRN DAILY PRN 05/08/17 11:09 05/11/17 08:18 20 UNITS Lactobacillus Acidophilus (Bacid, Emperatriz-Bid) 1 tab TIDAC 05/08/17 07:30 05/11/17 08:04 1 TAB Lidocaine HCl (Lidocaine Pf 2% Vial) 5 ml STK-MED ONCE 05/08/17 11:04 05/08/17 11:05 DC Losartan Potassium (Cozaar) 50 mg DAILY 05/09/17 14:30 05/11/17 08:05 50 MG Metoprolol Tartrate (Lopressor) 25 mg BID 05/08/17 09:00 05/11/17 08:06 25 MG Metronidazole (Flagyl) 500 mg Q12HR 05/10/17 09:00 05/11/17 08:06 500 MG Midazolam HCl (Versed) 2 mg STK-MED ONCE 05/08/17 11:52 05/08/17 11:53 DC Midodrine (Proamatine) 2.5 mg [id number] 05/08/17 08:00 05/11/17 08:06 2.5 MG Morphine Sulfate 1 mg PRN Q10MIN PRN 05/08/17 10:45 05/09/17 10:44 DC Non-Formulary Medication 20 unit PRN DAILY PRN 05/08/17 07:30 05/08/17 11:09 DC Ondansetron HCl (Zofran) 4 mg STK-MED ONCE 05/08/17 11:04 05/08/17 11:05 DC Piperacillin Sod/ Tazobactam Sod (Zosyn Per Pharmacy) 1 each PRN DAILY PRN 05/07/17 12:45 05/10/17 13:33 DC Piperacillin Sod/ Tazobactam Sod 3.375 gm/Sodium Chloride 50 ml @ 100 mls/hr Q6HRS 05/07/17 18:00 05/10/17 08:21 DC 05/10/17 05:30 100 MLS/HR Prochlorperazine Edisylate (Compazine) 5 mg PACU PRN PRN 05/08/17 10:45 05/09/17 10:44 DC Propofol 50 ml @ As Directed STK-MED ONCE 05/08/17 11:52 05/08/17 11:53 DC Ringer's Solution 1,000 ml @ 30 mls/hr Q24H 05/08/17 10:42 05/08/17 22:41 DC Sodium Chloride 1,000 ml @ 100 mls/hr 1X ONCE 05/07/17 12:45 05/07/17 22:44 DC 05/07/17 16:25 100 MLS/HR Tamsulosin HCl (Flomax) 0.4 mg DAILY 05/08/17 09:00 05/11/17 08:05 0.4 MG Vancomycin HCl 1 each 1X ONCE 05/11/17 01:30 05/11/17 01:31 DC 05/11/17 01:30 1 EACH Vancomycin HCl (Vanco Per Pharmacy) 1 each PRN DAILY PRN 05/07/17 12:45 05/11/17 03:44 1 EACH Vancomycin HCl 1.5 gm/Sodium Chloride 500 ml @ 250 mls/hr Q18H 05/09/17 14:00 05/11/17 03:06 250 MLS/HR Vancomycin HCl 1.75 gm/Sodium Chloride 500 ml @ 250 mls/hr 1X ONCE 05/07/17 13:00 05/07/17 14:59 DC 05/07/17 13:48 250 MLS/HR LAB Lab: Laboratory Tests Test 05/10/17 12:04 05/10/17 17:00 05/10/17 20:39 05/11/17 01:40 Glucose (Fingerstick) 200 mg/dL (70-99) 159 mg/dL (70-99) 195 mg/dL (70-99) Vancomycin Level Trough 14.4 mcg/mL (10.0-20.0) Vancomycin Last Dose Date Vancomycin Last Dose Time Test 05/11/17 07:38 Glucose (Fingerstick) 336 mg/dL (70-99) LUISITO RUSSELL MD May 11, 2017 08:23
[2017-05-11 11:00] VITALS: BP 125/60
--- NOTE | 2017-05-11 11:51 | PDOC ---
JAELYNGIO OLEARY Eren DIABETES PHYSICIAN 05/11/17 1151: ORTHO PROGRESS NOTES Subjective Patient reports that he is doing okay. No pain. He understands nonweightbearing status. He thought he was given a go home today but has been recently informed he isn't able to so he is a little discouraged. Post-op Day: 3 (I&D right foot wounds) Vitals Vital Signs Date Time Temp Pulse Resp B/P (MAP) Pulse Ox O2 Delivery O2 Flow Rate FiO2 05/11/17 11:00 97.8 71 18 125/60 (81) 95 Room Air 97.8 Labs Laboratory Tests Test 05/09/17 13:15 05/09/17 14:12 05/09/17 16:31 05/09/17 20:32 Vancomycin Level Trough 8.6 mcg/mL (10.0-20.0) Vancomycin Last Dose Date 05/08/17 Vancomycin Last Dose Time 1400 Glucose (Fingerstick) 266 mg/dL (70-99) 147 mg/dL (70-99) 187 mg/dL (70-99) Test 05/10/17 04:20 05/10/17 05:40 05/10/17 07:48 05/10/17 12:04 White Blood Count 6.6 x10^3/uL (4.0-11.0) Red Blood Count 3.70 x10^6/uL (4.30-5.70) Hemoglobin 9.9 g/dL (13.0-17.5) Hematocrit 30.3 % (39.0-53.0) Mean Corpuscular Volume 82 fL (79-100) Mean Corpuscular Hemoglobin 27 pg (25-35) Mean Corpuscular Hemoglobin Concent 33 g/dL (31-37) Red Cell Distribution Width 14.9 % (11.5-14.5) Platelet Count 225 x10^3/uL (140-400) Sodium Level 143 mmol/L (136-145) Potassium Level 4.1 mmol/L (3.5-5.1) Chloride Level 105 mmol/L (98-107) Carbon Dioxide Level 32 mmol/L (21-32) Anion Gap 6 (6-14) Blood Urea Nitrogen 17 mg/dL (8-26) Creatinine 0.9 mg/dL (0.7-1.3) Estimated GFR (Cockcroft-Gault) 81.2 Glucose Level 58 mg/dL (70-99) Calcium Level 8.7 mg/dL (8.5-10.1) Glucose (Fingerstick) 72 mg/dL (70-99) 200 mg/dL (70-99) 200 mg/dL (70-99) Test 05/10/17 17:00 05/10/17 20:39 05/11/17 01:40 05/11/17 07:38 Glucose (Fingerstick) 159 mg/dL (70-99) 195 mg/dL (70-99) 336 mg/dL (70-99) Vancomycin Level Trough 14.4 mcg/mL (10.0-20.0) Vancomycin Last Dose Date Vancomycin Last Dose Time Test 05/11/17 11:34 Glucose (Fingerstick) 222 mg/dL (70-99) Laboratory Tests Test 05/10/17 12:04 05/10/17 17:00 05/10/17 20:39 05/11/17 01:40 Glucose (Fingerstick) 200 mg/dL (70-99) 159 mg/dL (70-99) 195 mg/dL (70-99) Vancomycin Level Trough 14.4 mcg/mL (10.0-20.0) Vancomycin Last Dose Date Vancomycin Last Dose Time Test 05/11/17 07:38 05/11/17 11:34 Glucose (Fingerstick) 336 mg/dL (70-99) 222 mg/dL (70-99) Notes Wound noted on plantar aspect of foot as well as dorsal. Thick yellow drainage noted. Diminished sensation. No erythema. Palpable distal pulse Problems: (1) Diabetic foot infection Assessment and Plan Nonweightbearing right lower extremity Continue dressing changes per wound care Okay to discharge from orthopedic standpoint when medically stable JUAN J LLOYD II, MD 05/12/17 0853: GIO HAMILTON APRN May 11, 2017 11:51 JUAN J LLOYD II, MD May 12, 2017 08:53
--- NOTE | 2017-05-11 12:00 | PDOC ---
Infectious Disease Note Subjective Subjective feeling better hungry ROS ROS GEN: Denies fevers, chills, sweats HEENT: Denies blurred vision, sore throat CV: Denies chest pain RESP: Denies shortness of air, cough GI: Denies n/v/d NEURO: Denies confusion, dizziness MSK: Denies weakness, joint pain/swelling Vital Sign Vital Signs Vital Signs Date Time Temp Pulse Resp B/P (MAP) Pulse Ox O2 Delivery O2 Flow Rate FiO2 05/11/17 08:06 70 167/75 05/11/17 07:00 98.5 18 95 Room Air 98.5 Physical Exam PHYSICAL EXAM GENERAL: NAD, Alert HEENT: PERRL, OC/OP- clear NECK: Supple, no JVD, no LN LUNGS: Clear HEART: S1S2, no gallop, no murmur ABD: Soft, NT, no organomegaly, no rebound Marley EXT: No edema, no cyanosis, Foot wounds are granulating SHOOK SPLICER: Alert, oriented x 3, no focal neurologic deficit SKIN: No rash IV: ok Labs Lab Laboratory Tests Test 05/10/17 12:04 05/10/17 17:00 05/10/17 20:39 05/11/17 01:40 Glucose (Fingerstick) 200 mg/dL (70-99) 159 mg/dL (70-99) 195 mg/dL (70-99) Vancomycin Level Trough 14.4 mcg/mL (10.0-20.0) Vancomycin Last Dose Date Vancomycin Last Dose Time Test 05/11/17 07:38 05/11/17 11:34 Glucose (Fingerstick) 336 mg/dL (70-99) 222 mg/dL (70-99) Micro Proteus mirabilis Scant growth AEROBIC RES 2 Preliminary Staphylococcus aureus Scant growth AEROBIC RES 3 Preliminary Enterococcus species Scant growth ANTIMICROBIAL SUSCEPTIBILITY Preliminary Comment S = Susceptible; I = Intermediate; R = Resistant P = Positive; N = Negative MICS are expressed in micrograms per mL Antibiotic RSLT#1 RSLT#2 RSLT#3 RSLT#4 Ampicillin R Cefazolin S Cefepime S Ceftriaxone S Cefuroxime S Ciprofloxacin S Ertapenem S Gentamicin R CONTINUED ON NEXT PAGE RUN DATE: 05/10/17 PAGE 2 RUN TIME: [address] [facility] [address] [place] [address] Rigoberto Hernandez M.D., Wood Die Maker SPEC: [id number] PATIENT: MICKY SAAVEDRA [id number] ( Continued) Procedure Result ANTIMICROBIAL SUSCEPTIBILITY Preliminary (continued) Levofloxacin S Piperacillin R Tetracycline R Tobramycin S Trimethoprim/Sulfa S Objective Assessment Rt foot diabetic wound with infection s/p I and D 05/08 - Proteus/Staph so far Cath associated UTI Bacteremia BPH Leukocytosis DM C diff + 05/08 Plan Plan of Care cont antibiotics but Rocephin flagyl instead of Zosyn Cont IV Vanc and po vanc Cont probiotics check cultures F/u labs PICC D/w TOYA Dukes MD May 11, 2017 12:00
--- NOTE | 2017-05-11 12:43 | PDOC2 ---
CONSULT Date of Consult Date of Consult DATE: 05/11/17 TIME: 12:24 Reason for Consult Reason for Consult: Right diabetic foot ulcer Referring Physician Referring Physician: Dr. 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 Gradual progress was identified up until last week when increased redness prompted the need for magnetic resonance imaging. 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 Concomitant with this was the development of some altered mental status and patient was subsequently admitted to the hospital. He is currently receiving IV antibiotic therapy under the care of infectious disease and has undergone soft tissue debridement with Dr. Farnsworth. Patient is examined at the bedside today. He reports minimal discomfort, denies fever or chills and reports adequate appetite at this time. 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 Patient failed filament testing at 5 plantar surface locations on the right foot as well. Past Medical History Cardiovascular: CAD, HTN, Hyperlipidemia Psych: Anxiety, Depression Musculoskeletal: Osteoarthritis Renal/: Benign prostatic enlarg., Hematuria Endocrine: Diabetes Past Surgical History Past Surgical History: Tonsillectomy, Other Family History Family History: Diabetes, Hypertension, Other Social History ALCOHOL: none Drugs: None Lives: with Family Current Problem List Problem List Problems Medical Problems: (1) Delirium Status: Acute Right foot diabetic Sharma 3 ulceration with evidence of bone necrosis on imaging. Current Medications Current Medications Current Medications Vancomycin HCl (Vanco Per Pharmacy) 1 each PRN DAILY PRN MC SEE COMMENTS Last administered on 05/11/17 03:44; Start 05/07/17 at 12:45 Piperacillin Sod/ Tazobactam Sod (Zosyn Per Pharmacy) 1 each PRN DAILY PRN MC SEE COMMENTS; Start 05/07/17 at 12:45; Stop 05/10/17 at 13:33; Status DC Sodium Chloride 500 ml @ 500 mls/hr 1X ONCE IV Last administered on 05/07/17 13:11; Start 05/07/17 at 12:45; Stop 05/07/17 at 13:44; Status DC Ondansetron HCl (Zofran) 4 mg PRN Q8HRS PRN IV NAUSEA/VOMITING; Start 05/07/17 at 12:45; Stop 05/08/17 at 12:44; Status DC Morphine Sulfate 2 mg PRN Q2HR PRN IV PAIN; Start 05/07/17 at 12:45; Stop at 12:44; Status DC Sodium Chloride 1,000 ml @ 100 mls/hr 1X ONCE IV Last administered on 16:25; Start 05/07/17 at 12:45; Stop 05/07/17 at 22:44; Status DC Vancomycin HCl 1.75 gm/Sodium Chloride 500 ml @ 250 mls/hr 1X ONCE IV Last administered on 05/07/17 13:48; Start 05/07/17 at 13:00; Stop 05/07/17 at 14:59; Status DC Piperacillin Sod/ Tazobactam Sod 3.375 gm/Sodium Chloride 50 ml @ 100 mls/hr 1X ONCE IV Last administered on 05/07/17 13:09; Start 05/07/17 at 13:00; Stop 05/07/17 at 13:29; Status DC Piperacillin Sod/ Tazobactam Sod 3.375 gm/Sodium Chloride 50 ml @ 100 mls/hr Q6HRS IV Last administered on 05/10/17 05:30; Start 05/07/17 at 18:00; Stop 05/10 at 08:21; Status DC Vancomycin HCl 1.5 gm/Sodium Chloride 500 ml @ 250 mls/hr Q24H IV Last administered on 05/08/17 14:29; Start 05/08/17 at 14:00; Stop 05/09/17 at 14:01; Status DC Vancomycin HCl 1 each 1X ONCE MC Last administered on 05/09/17 13:15; Start at 13:30; Stop 05/09/17 at 13:31; Status DC Dextrose (Dextrose 50%-Water Syringe) 25 gm PRN Q15MIN PRN IV hypoglycemia; Start 05/07/17 at 17:30; Stop 05/09/17 at 12:21; Status DC Lactobacillus Acidophilus (Bacid, Emperatriz-Bid) 1 tab TIDAC PO Last administered on 05/11/17 08:04; Start 05/08/17 at 07:30 Aspirin (Ecotrin) 81 mg DAILY PO Last administered on 05/11/17 08:06; Start at 09:00 Atorvastatin Calcium (Lipitor) 10 mg QHS PO Last administered on 05/10/17 21:13 ; Start 05/08/17 at 21:00 Celecoxib (CeleBREX) 200 mg BID PO Last administered on 05/11/17 08:06; Start 05/08/17 at 09:00 Metoprolol Tartrate (Lopressor) 25 mg BID PO Last administered on 05/11/17 08: 06; Start 05/08/17 at 09:00 Midodrine (Proamatine) 2.5 mg [id number] PO Last administered on 05/11/17 08:06; Start 05/08/17 at 08:00 Tamsulosin HCl (Flomax) 0.4 mg DAILY PO Last administered on 05/11/17 08:05; Start 05/08/17 at 09:00 Duloxetine HCl (Cymbalta) 60 mg DAILY PO Last administered on 05/11/17 08:05; Start 05/08/17 at 09:00 Glimepiride (Amaryl) 4 mg DAILY PO Last administered on 05/11/17 08:06; Start 05/08/17 at 09:00 Non-Formulary Medication 20 unit PRN DAILY PRN SQ ONLY IF BS >200; Start at 07:30; Stop 05/08/17 at 11:09; Status DC Ondansetron HCl (Zofran) 4 mg PRN Q6HRS PRN IV NAUSEA/VOMITING; Start 05/08/17 at 10:45; Stop 05/09/17 at 10:44; Status DC Fentanyl Citrate (Fentanyl 2ml Vial) 25 mcg PRN Q5MIN PRN IV MILD PAIN; Start 05/08/17 at 10:45; Stop 05/09/17 at 10:44; Status DC Fentanyl Citrate (Fentanyl 2ml Vial) 50 mcg PRN Q5MIN PRN IV MODERATE PAIN; Start 05/08/17 at 10:45; Stop 05/09/17 at 10:44; Status DC Morphine Sulfate 1 mg PRN Q10MIN PRN IV SEVERE PAIN; Start 05/08/17 at 10:45; Stop 05/09/17 at 10:44; Status DC Ringer's Solution 1,000 ml @ 30 mls/hr Q24H IV ; Start 05/08/17 at 10:42; Stop 05/08/17 at 22:41; Status DC Lidocaine HCl 2 ml PRN 1X PRN ID PRIOR TO IV START; Start 05/08/17 at 10:45; Stop 05/09/17 at 10:44; Status DC Hydromorphone HCl (Dilaudid) 0.5 mg PRN Q10MIN PRN IV SEV PAIN, Second choice; Start 05/08/17 at 10:45; Stop 05/09/17 at 10:44; Status DC Prochlorperazine Edisylate (Compazine) 5 mg PACU PRN PRN IV NAUSEA, MRX1; Start 05/08/17 at 10:45; Stop 05/09/17 at 10:44; Status DC Insulin Aspart (NovoLOG VIAL) 100 unit STK-MED ONCE SQ ; Start 05/08/17 at 10:51 ; Stop 05/08/17 at 10:52; Status DC Insulin Aspart (NovoLOG VIAL) 10 unit 1X ONCE SQ Last administered on t 10:55; Start 05/08/17 at 11:00; Stop 05/08/17 at 11:01; Status DC Propofol 20 ml @ As Directed STK-MED ONCE IV ; Start 05/08/17 at 11:04; Stop 05/08 at 11:05; Status DC Lidocaine HCl (Lidocaine Pf 2% Vial) 5 ml STK-MED ONCE .ROUTE ; Start 05/08/17 at 11:04; Stop 05/08/17 at 11:05; Status DC Famotidine (Pepcid) 20 mg STK-MED ONCE .ROUTE ; Start 05/08/17 at 11:04; Stop 05/08/17 at 11:05; Status DC Ondansetron HCl (Zofran) 4 mg STK-MED ONCE .ROUTE ; Start 05/08/17 at 11:04; Stop 05/08/17 at 11:05; Status DC Fentanyl Citrate (Fentanyl 2ml Vial) 100 mcg STK-MED ONCE .ROUTE ; Start at 11:05; Stop 05/08/17 at 11:06; Status DC Insulin Detemir (Levemir) 20 units PRN DAILY PRN SQ ONLY IF BS >200 Last administered on 05/11/17 08:18; Start 05/08/17 at 11:09 Propofol 50 ml @ As Directed STK-MED ONCE IV ; Start 05/08/17 at 11:52; Stop 05/08 at 11:53; Status DC Midazolam HCl (Versed) 2 mg STK-MED ONCE .ROUTE ; Start 05/08/17 at 11:52; Stop 05/08/17 at 11:53; Status DC Vancomycin HCl 250 mg [id number] PO Last administered on 05/11/17 08:14; Start at 09:00 Insulin Aspart (NovoLOG) 10 units 1X ONCE SQ Last administered on 05/09/17 12: 25; Start 05/09/17 at 12:15; Stop 05/09/17 at 12:16; Status DC Insulin Aspart (NovoLOG) 0-9 UNITS TIDWMEALS SQ ; Start 05/09/17 at 12:30; Stop 05/09/17 at 12:47; Status DC Dextrose (Dextrose 50%-Water Syringe) 12.5 gm PRN Q15MIN PRN IV SEE COMMENTS; Start 05/09/17 at 12:30; Stop 05/09/17 at 12:47; Status DC Insulin Aspart (NovoLOG) 0-7 UNITS TIDWMEALS SQ Last administered on 05/11/17 08:17; Start 05/09/17 at 13:00 Dextrose (Dextrose 50%-Water Syringe) 12.5 gm PRN Q15MIN PRN IV SEE COMMENTS; Start 05/09/17 at 12:45 Losartan Potassium (Cozaar) 50 mg DAILY PO Last administered on 05/11/17 08:05 ; Start 05/09/17 at 14:30 Vancomycin HCl 1.5 gm/Sodium Chloride 500 ml @ 250 mls/hr Q18H IV Last administered on 05/11/17 03:06; Start 05/09/17 at 14:00 Vancomycin HCl 1 each 1X ONCE MC Last administered on 05/11/17 01:30; Start 05/11/17 at 01:30; Stop 05/11/17 at 01:31; Status DC Ceftriaxone Sodium 2 gm/ Sodium Chloride 100 ml @ 200 mls/hr Q24H IV Last administered on 05/11/17 08:07; Start 05/10/17 at 08:30 Metronidazole (Flagyl) 500 mg Q12HR PO Last administered on 05/11/17 08:06; Start 05/10/17 at 09:00 Active Scripts Active Atorvastatin Calcium 10 Mg Tablet 10 Mg PO QHS Metoprolol Tartrate 25 Mg Tablet 25 Mg PO BID Midodrine Hcl 2.5 Mg Tablet 2.5 Mg PO [id number] Reported Emperatriz-Bid Caplet (Acidoph/L.bulg/Bif.b/S.thermop) 1 Each Tablet 1 Each PO TIDAC Aspirin Ec (Aspirin) 81 Mg Tablet.dr 1 Tab PO DAILY Lantus (Insulin Glargine,Hum.rec.anlog) 100 Unit/1 Ml Vial 20 Unit SQ PRN PRN ONLY IF BLOOD SUGAR GREATER THAN 200. Glimepiride 4 Mg Tablet 4 Mg PO DAILY Celebrex (Celecoxib) 200 Mg Capsule 200 Mg PO BID 30 Days Duloxetine Hcl 60 Mg Capsule.dr 60 Mg PO DAILY Tamsulosin Hcl 0.4 Mg Cap.er.24h 0.4 Mg PO DAILY Allergies Allergies: Coded Allergies: Influenza Virus Vaccines (Verified Allergy, Intermediate, 05/09/17) ROS Respiratory: YES: SOB with excertion Musculoskeletal: Yes Gait Disturbance (related to diabetic foot changes) Neurological: Yes Numbness/Tingling (related to diabetic neuropathy) Physical Exam General: Alert, Oriented X3, Cooperative, No acute distress HEENT: Atraumatic, PERRLA, EOMI, Mucous membr. moist/pink Lungs: Clear to auscultation Heart: Regular rate Abdomen: Normal bowel sounds, No tenderness Extremities: No cyanosis, No edema Skin: Other (diabetic foot ulcers 2 to the plantar forefoot. These have demonstrated muscle necrosis on clinical exam and have suggested bone necrosis on MRI. At this time the medial plantar surface ulcer tunnels 1.8 cm.) Neuro: Normal speech, Cranial nerves 3-12 NL Psych/Mental Status: Mental status NL, Mood NL MUSCULOSKELETAL: Other (right foot demonstrates likely first metatarsal phalangeal subluxation with loss of flexor motion at the great toe.) Vitals VITALS Vital Signs Date Time Temp Pulse Resp B/P (MAP) Pulse Ox O2 Delivery O2 Flow Rate FiO2 05/11/17 11:00 97.8 71 18 125/60 (81) 95 Room Air 97.8 Labs Labs Laboratory Tests Test 05/09/17 13:15 05/09/17 14:12 05/09/17 16:31 05/09/17 20:32 Vancomycin Level Trough 8.6 mcg/mL (10.0-20.0) Vancomycin Last Dose Date 05/08/17 Vancomycin Last Dose Time 1400 Glucose (Fingerstick) 266 mg/dL (70-99) 147 mg/dL (70-99) 187 mg/dL (70-99) Test 05/10/17 04:20 05/10/17 05:40 05/10/17 07:48 05/10/17 12:04 White Blood Count 6.6 x10^3/uL (4.0-11.0) Red Blood Count 3.70 x10^6/uL (4.30-5.70) Hemoglobin 9.9 g/dL (13.0-17.5) Hematocrit 30.3 % (39.0-53.0) Mean Corpuscular Volume 82 fL (79-100) Mean Corpuscular Hemoglobin 27 pg (25-35) Mean Corpuscular Hemoglobin Concent 33 g/dL (31-37) Red Cell Distribution Width 14.9 % (11.5-14.5) Platelet Count 225 x10^3/uL (140-400) Sodium Level 143 mmol/L (136-145) Potassium Level 4.1 mmol/L (3.5-5.1) Chloride Level 105 mmol/L (98-107) Carbon Dioxide Level 32 mmol/L (21-32) Anion Gap 6 (6-14) Blood Urea Nitrogen 17 mg/dL (8-26) Creatinine 0.9 mg/dL (0.7-1.3) Estimated GFR (Cockcroft-Gault) 81.2 Glucose Level 58 mg/dL (70-99) Calcium Level 8.7 mg/dL (8.5-10.1) Glucose (Fingerstick) 72 mg/dL (70-99) 200 mg/dL (70-99) 200 mg/dL (70-99) Test 05/10/17 17:00 05/10/17 20:39 05/11/17 01:40 05/11/17 07:38 Glucose (Fingerstick) 159 mg/dL (70-99) 195 mg/dL (70-99) 336 mg/dL (70-99) Vancomycin Level Trough 14.4 mcg/mL (10.0-20.0) Vancomycin Last Dose Date Vancomycin Last Dose Time Test 05/11/17 11:34 Glucose (Fingerstick) 222 mg/dL (70-99) Laboratory Tests Test 05/10/17 17:00 05/10/17 20:39 05/11/17 01:40 05/11/17 07:38 Glucose (Fingerstick) 159 mg/dL (70-99) 195 mg/dL (70-99) 336 mg/dL (70-99) Vancomycin Level Trough 14.4 mcg/mL (10.0-20.0) Vancomycin Last Dose Date Vancomycin Last Dose Time Test 05/11/17 11:34 Glucose (Fingerstick) 222 mg/dL (70-99) Images Images MRI suggested distal first metatarsal and proximal first phalangeal osteomyelitis from 05/07/17. Assessment/Plan Assessment/Plan 1. Diabetic Sharma 3 ulceration of the right forefoot with imaging suggestive of osteomyelitis. Antibiotic therapy per infectious disease. Deep tunnel will be packed with aqua cell AG and overlying ulcer sites changed on a 3 time weekly basis. No weight bearing can be allowed at this time. 2. Peripheral vascular disease with previous arteriography suggesting significant disease and posterior tibial artery and dorsalis pedis arteries. Consultation with vascular surgery is warranted. Bedside transcutaneous oximetry assessment was carried out to assess tissue oxygenation at the periwound level. Leads 1,2 and 3 are closest to ulcer sites and demonstrate readings of 25 mmHg, 33 mm or mercury, and 34 mm or mercury. Leads 4 and 5 are proximal foot and distal right lower extremity leads and read 44 mm or mercury and 36 mm or mercury respectively. Values less than 40 mmHg particularly and diabetic patient suggest significant difficulty in healing wounds. Utilizing 100% oxygen at 1 nickolas all leads responded with values greater than 100 mm or mercury except lead #3. This is suggestive of benefit from hyperbaric oxygen therapy. In light of this patient' s significant difficulty healing current wound and particularly his recent worsening, would suggest follow-up treatment with HBOT will be beneficial. Thank you for the opportunity to participate in Mr. Gomes's care. MARY HODGES DO May 11, 2017 12:43
[2017-05-11 15:00] VITALS: BP 114/66
[2017-05-11 19:33] VITALS: BP 125/63
[2017-05-11] MEDS: ATORVASTATIN CALCIUM 10 MG TABLET. PO SCH (21:22)
[2017-05-11 23:15] VITALS: BP 156/59
[2017-05-12 03:19] VITALS: BP 149/71
[2017-05-12 07:00] VITALS: BP 155/71
--- NOTE | 2017-05-12 08:02 | PDOC ---
Infectious Disease Note Subjective Subjective feeling but but has some fecal incontinence at times ROS ROS GEN: Denies fevers, chills, sweats HEENT: Denies blurred vision, sore throat CV: Denies chest pain RESP: Denies shortness of air, cough GI: Denies n/v NEURO: Denies confusion, dizziness MSK: Denies weakness, joint pain/swelling Vital Sign Vital Signs Vital Signs Date Time Temp Pulse Resp B/P (MAP) Pulse Ox O2 Delivery O2 Flow Rate FiO2 05/12/17 03:19 97.5 69 18 149/71 (97) 96 Room Air 97.5 Physical Exam PHYSICAL EXAM GENERAL: NAD, Alert HEENT: PERRL, OC/OP- clear NECK: Supple, no JVD, no LN LUNGS: Clear HEART: S1S2, no gallop, no murmur ABD: Soft, NT, no organomegaly, no rebound Marley EXT: No edema, no cyanosis, Foot wounds are dressed ARCHAEOLOGY PROFESSOR: Alert, oriented x 3, no focal neurologic deficit SKIN: No rash IV: ok Labs Lab Laboratory Tests Test 05/11/17 11:34 05/11/17 16:18 05/11/17 20:48 Glucose (Fingerstick) 222 mg/dL (70-99) 229 mg/dL (70-99) 181 mg/dL (70-99) Micro Proteus mirabilis Scant growth AEROBIC RES 2 Final Comment Methicillin - resistant Staphylococcus aureus Scant growth Based on resistance to oxacillin this isolate would be resistant to all currently available beta-lactam antimicrobial agents, with the exception of the newer cephalosporins with anti-MRSA activity, such as Ceftaroline AEROBIC RES 3 Final Enterococcus faecalis Scant growth ANTIMICROBIAL SUSCEPTIBILITY Final Comment S = Susceptible; I = Intermediate; R = Resistant P = Positive; N = Negative MICS are expressed in micrograms per mL Antibiotic RSLT#1 RSLT#2 RSLT#3 RSLT#4 Ampicillin R CONTINUED ON NEXT PAGE RUN DATE: 05/11/17 PAGE 2 RUN TIME: 1212 [facility] [address] [place] [address] Rigoberto Hernandez M.D., Can Closing Machine Operator SPEC: [id number] PATIENT: MICKY SAAVEDRA [id number] ( Continued) Procedure Result ANTIMICROBIAL SUSCEPTIBILITY Final (continued) Cefazolin S Cefepime S Ceftriaxone S Cefuroxime S Ciprofloxacin S R Clindamycin S Ertapenem S Erythromycin S Gentamicin R S Levofloxacin S R Linezolid S Oxacillin R Penicillin R S Piperacillin R Rifampin S Tetracycline R S Tobramycin S Trimethoprim/Sulfa S S Vancomycin S S Objective Assessment 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 Collado 05/11 Cath associated UTI Bacteremia -ID pending d/w micro -anaerobe BPH Leukocytosis DM C diff + 05/08 Plan Plan of Care cont Rocephin/flagy/ IV Vanc and po vanc for 5 more weeks Cont probiotics check cultures - blood anaerobic GPR from 05/07 d/w micro ID hopefully today F/u labs Will need chest power PICC as unable to place in TOYA MAI MD May 12, 2017 08:02
--- NOTE | 2017-05-12 08:36 | PDOC ---
GENERAL General: vss and afebrile. awake and alert and eating breakfast. sugars variable. ongoing iv antibiotics for diabetic foot infection/osteo. PICC to be placed today for prolonged antibiotics. otherwise same. Problems: VITAL SIGNS Vital Signs: Vital Signs Date Time Temp Pulse Resp B/P (MAP) Pulse Ox O2 Delivery O2 Flow Rate FiO2 05/12/17 07:00 97.7 70 18 155/71 (99) 95 Room Air 97.7 I & O I & O Intake and Output 05/12/17 07:00 Intake Total 500 ml Output Total 2200 ml Balance -1700 ml IV Total 500 ml Output Urine Total 2200 ml # Bowel Movements 3 ALLERGIES Allergies: Allergies Coded Allergies Type Severity Reaction Last Updated Verified Influenza Virus Vaccines Allergy Intermediate 05/09/17 Yes MEDS Medications: Current Medications Medications (Trade) Dose Ordered Sig/Chay Start Time Stop Time Status Last Admin Dose Admin Aspirin (Ecotrin) 81 mg DAILY 05/08/17 09:00 05/11/17 08:06 81 MG Atorvastatin Calcium (Lipitor) 10 mg QHS 05/08/17 21:00 05/11/17 21:22 10 MG Ceftriaxone Sodium 2 gm/ Sodium Chloride 100 ml @ 200 mls/hr Q24H 05/10/17 08:30 05/11/17 08:07 200 MLS/HR Celecoxib (CeleBREX) 200 mg BID 05/08/17 09:00 05/11/17 21:22 200 MG Dextrose (Dextrose 50%-Water Syringe) 12.5 gm PRN Q15MIN PRN 05/09/17 12:45 Duloxetine HCl (Cymbalta) 60 mg DAILY 05/08/17 09:00 05/11/17 08:05 60 MG Famotidine (Pepcid) 20 mg STK-MED ONCE 05/08/17 11:04 05/08/17 11:05 DC Fentanyl Citrate (Fentanyl 2ml Vial) 100 mcg STK-MED ONCE 05/08/17 11:05 05/08/17 11:06 DC Glimepiride (Amaryl) 4 mg DAILY 05/08/17 09:00 05/11/17 08:06 4 MG Hydromorphone HCl (Dilaudid) 0.5 mg PRN Q10MIN PRN 05/08/17 10:45 05/09/17 10:44 DC Insulin Aspart (NovoLOG VIAL) 10 unit 1X ONCE 05/08/17 11:00 05/08/17 11:01 DC 05/08/17 10:55 10 UNIT Insulin Aspart (NovoLOG) 0-7 UNITS TIDWMEALS 05/09/17 13:00 05/11/17 17:49 4 UNITS Insulin Detemir (Levemir) 20 units PRN DAILY PRN 05/08/17 11:09 05/11/17 08:18 20 UNITS Lactobacillus Acidophilus (Bacid, Emperatriz-Bid) 1 tab TIDAC 05/08/17 07:30 05/11/17 17:45 1 TAB Lidocaine HCl (Lidocaine Pf 2% Vial) 5 ml STK-MED ONCE 05/08/17 11:04 05/08/17 11:05 DC Losartan Potassium (Cozaar) 50 mg DAILY 05/09/17 14:30 05/11/17 08:05 50 MG Metoprolol Tartrate (Lopressor) 25 mg BID 05/08/17 09:00 05/11/17 21:22 25 MG Metronidazole (Flagyl) 500 mg Q12HR 05/10/17 09:00 05/11/17 21:22 500 MG Midazolam HCl (Versed) 2 mg STK-MED ONCE 05/08/17 11:52 05/08/17 11:53 DC Midodrine (Proamatine) 2.5 mg [id number] 05/08/17 08:00 05/11/17 17:45 2.5 MG Morphine Sulfate 1 mg PRN Q10MIN PRN 05/08/17 10:45 05/09/17 10:44 DC Non-Formulary Medication 20 unit PRN DAILY PRN 05/08/17 07:30 05/08/17 11:09 DC Ondansetron HCl (Zofran) 4 mg STK-MED ONCE 05/08/17 11:04 05/08/17 11:05 DC Piperacillin Sod/ Tazobactam Sod (Zosyn Per Pharmacy) 1 each PRN DAILY PRN 05/07/17 12:45 05/10/17 13:33 DC Piperacillin Sod/ Tazobactam Sod 3.375 gm/Sodium Chloride 50 ml @ 100 mls/hr Q6HRS 05/07/17 18:00 05/10/17 08:21 DC 05/10/17 05:30 100 MLS/HR Prochlorperazine Edisylate (Compazine) 5 mg PACU PRN PRN 05/08/17 10:45 05/09/17 10:44 DC Propofol 50 ml @ As Directed STK-MED ONCE 05/08/17 11:52 05/08/17 11:53 DC Ringer's Solution 1,000 ml @ 30 mls/hr Q24H 05/08/17 10:42 05/08/17 22:41 DC Sodium Chloride 1,000 ml @ 100 mls/hr 1X ONCE 05/07/17 12:45 05/07/17 22:44 DC 05/07/17 16:25 100 MLS/HR Tamsulosin HCl (Flomax) 0.4 mg DAILY 05/08/17 09:00 05/11/17 08:05 0.4 MG Vancomycin HCl 1 each 1X ONCE 05/11/17 01:30 05/11/17 01:31 DC 05/11/17 01:30 1 EACH Vancomycin HCl (Vanco Per Pharmacy) 1 each PRN DAILY PRN 05/07/17 12:45 05/11/17 03:44 1 EACH Vancomycin HCl 1.5 gm/Sodium Chloride 500 ml @ 250 mls/hr Q18H 05/09/17 14:00 05/11/17 21:21 250 MLS/HR Vancomycin HCl 1.75 gm/Sodium Chloride 500 ml @ 250 mls/hr 1X ONCE 05/07/17 13:00 05/07/17 14:59 DC 05/07/17 13:48 250 MLS/HR LAB Lab: Laboratory Tests Test 05/11/17 11:34 05/11/17 16:18 05/11/17 20:48 05/12/17 07:39 Glucose (Fingerstick) 222 mg/dL (70-99) 229 mg/dL (70-99) 181 mg/dL (70-99) 311 mg/dL (70-99) LUISITO RUSSELL MD May 12, 2017 08:36
[2017-05-12] MEDS: LACTOBACILLUS ACIDOPH & BULGAR 1 TABLET. PO SCH ×3 (08:41→17:09)
[2017-05-12] MEDS: metroNIDAZOLE 500 MG TABLET PO SCH ×2 (08:42→21:16)
[2017-05-12] MEDS: DULoxetine HCL 30 MG CAPSULE.DR PO SCH (08:42)
[2017-05-12] MEDS: ASPIRIN ENTERIC COATED 81 MG TABLET.DR. PO SCH (08:42)
[2017-05-12] MEDS: TAMSULOSIN 0.4 MG CAP.ER.24H. PO SCH (08:42)
[2017-05-12] MEDS: CELECOXIB 200 MG CAPSULE. PO SCH ×2 (08:42→21:16)
[2017-05-12] MEDS: LOSARTAN POTASSIUM 50 MG TABLET. PO SCH (08:42)
[2017-05-12] MEDS: GLIMEPIRIDE 2 MG TABLET. PO SCH (08:43)
[2017-05-12] MEDS: VANCOMYCIN 250 MG/5 ML ORAL SOLUTION. PO SCH ×4 (08:43→21:16)
[2017-05-12] MEDS: METOPROLOL TART IMMED RELEASE 25 MG TABLET. PO SCH ×2 (08:43→21:16)
[2017-05-12] MEDS: MIDODRINE 2.5 MG TABLET PO SCH ×3 (08:43→17:09)
[2017-05-12] MEDS: INSULIN ASPART 300 UNITS/3 ML INSULN.PEN SQ SCH ×3 (08:57→17:14)
[2017-05-12] MEDS: INSULIN DETEMIR 300 UNITS/3 ML INSULN.PEN. SQ PRN (08:58)
--- NOTE | 2017-05-12 09:01 | PDOC ---
ORTHO PROGRESS NOTES Subjective He tells me he feels like he is doing well. He denies any pain. Vitals Vital Signs Date Time Temp Pulse Resp B/P (MAP) Pulse Ox O2 Delivery O2 Flow Rate FiO2 05/12/17 08:43 70 155/71 05/12/17 07:00 97.7 18 95 Room Air 97.7 Labs Laboratory Tests Test 05/10/17 12:04 05/10/17 17:00 05/10/17 20:39 05/11/17 01:40 Glucose (Fingerstick) 200 mg/dL (70-99) 159 mg/dL (70-99) 195 mg/dL (70-99) Vancomycin Level Trough 14.4 mcg/mL (10.0-20.0) Vancomycin Last Dose Date Vancomycin Last Dose Time Test 05/11/17 07:38 05/11/17 11:34 05/11/17 16:18 05/11/17 20:48 Glucose (Fingerstick) 336 mg/dL (70-99) 222 mg/dL (70-99) 229 mg/dL (70-99) 181 mg/dL (70-99) Test 05/12/17 07:39 Glucose (Fingerstick) 311 mg/dL (70-99) Laboratory Tests Test 05/11/17 11:34 05/11/17 16:18 05/11/17 20:48 05/12/17 07:39 Glucose (Fingerstick) 222 mg/dL (70-99) 229 mg/dL (70-99) 181 mg/dL (70-99) 311 mg/dL (70-99) X-Rays TCO M report was reviewed. Notes He is awake and alert and sitting at the edge of his bed. There is some bloody drainage but his wounds look fairly clean overall. Assessment and Plan It seems that he would benefit from hyperbaric treatment. I would recommend wound care continue therapy help with this Lanette. From my standpoint he can be discharged. JUAN J LLOYD II, MD May 12, 2017 09:01
[2017-05-12 11:00] VITALS: BP 118/54
[2017-05-12] MEDS: VANCOMYCIN PER PHARMACY MC PRN (11:16)
[2017-05-12] MEDS ORDERED: LIDOCAINE 1%/EPI 1:100,000 20 ML VIAL. ONE (11:19)
[2017-05-12] MEDS ORDERED: HEPARIN PF 500 UNIT/5 ML DISP.SYRIN. IV ONE ×2 (11:19→13:15)
[2017-05-12] MEDS ORDERED: LIDOCAINE 1%/EPI 1:100,000 20 ML VIAL. INJ ONE (13:15)
[2017-05-12] MEDS: VANCOMYCIN 1.5 GM in IV NORMAL SALINE 500ML BAG 500 ML IV SCH (13:58)
--- NOTE | 2017-05-12 14:03 | RAD ---
Procedure: Ultrasound and fluoroscopically guided placement of tunnel central venous catheter. 05/12/2017 Clinical Indication: FDC central venous access Sedation: Conscious sedation was administered for 30 minutes. The patient was monitored by a qualified independent observer throughout the time of sedation. Please refer to the medical record for exact doses of medications utilized to achieve moderate sedation. Fluoroscopy time: 0.4 minutes Dose area product: 4 Gycm2 Sterility: All elements of maximal sterile barrier technique including the use of a cap, mask, sterile gown, sterile gloves, large sterile sheet, appropriate hand hygiene, and 2% chlorhexidine for cutaneous antisepsis (or acceptable alternative antiseptic per current guidelines) were followed for this procedure. Consent: The procedure was explained in its entirety to the patient or the patients designated insurance verification representative by a member of the treatment team, including a discussion of the risks, benefits and commonly accepted alternatives to the procedure, as well as the expected consequences of no therapy whatsoever. Discussion of the risks included, but was not limited to, those that are most frequent and those that are rare but possibly severe or life-threatening, as well as the possibility of unforeseen complications. Technique and Findings: Following informed consent, the patient was prepped and draped in the usual sterile fashion. Ultrasound interrogation of the right neck revealed patency and compressibility of the right internal jugular vein. A 21-gauge micropuncture was then used to gain access to this vein under ultrasound guidance. A hard copy ultrasound image was recorded. The needle was exchanged over a wire for a 4 sheath. A small incision was made several centimeters inferior to the right clavicle. A power line was trimmed to length,, advanced from the small skin incision to the venotomy site, and then advanced through peel-away sheath to the level of the cavoatrial junction. Catheter was found to flush and aspirate normally. Catheter was secured in place with 2-0 Prolene suture and a sterile dressing was applied. Catheter was packed with heparin per protocol. The neck dermatotomy was closed with Dermabond. No immediate complications were identified. Impression: Successful ultrasound and fluoroscopically guided placement of a right internal jugular tunneled central venous catheter
[2017-05-12 15:00] VITALS: BP 142/63
[2017-05-12 19:00] VITALS: BP 168/78
[2017-05-12] MEDS: ATORVASTATIN CALCIUM 10 MG TABLET. PO SCH (21:16)
[2017-05-12 23:22] VITALS: BP 150/78
[2017-05-13 03:27] VITALS: BP 143/71
[2017-05-13 05:34] LABS: CALCIUM 8.4 mg/dL (8.5-10.1); CREATININE 0.8 mg/dL (0.7-1.3)
[2017-05-13 05:35] LABS: POTASSIUM 4.4 mmol/L (3.5-5.1)
[2017-05-13] MEDS: MIDODRINE 2.5 MG TABLET PO SCH ×3 (06:43→18:13)
[2017-05-13 07:00] VITALS: BP 150/81
[2017-05-13] MEDS: INSULIN ASPART 300 UNITS/3 ML INSULN.PEN SQ SCH ×3 (08:00→18:19)
--- NOTE | 2017-05-13 08:21 | PDOC ---
GENERAL General: vss and afebrile and eating breakfast. sugars variable with fbs 133 this am. need for hyperbaric O2 therapy on foot noted. chest clear and heart regular. case managment trying to arrange dc destination with need for ongoing iv antibiotics and the hyperbaric O2. Problems: VITAL SIGNS Vital Signs: Vital Signs Date Time Temp Pulse Resp B/P (MAP) Pulse Ox O2 Delivery O2 Flow Rate FiO2 05/13/17 07:00 97.5 69 16 150/81 (104) 100 Room Air 97.5 I & O I & O Intake and Output 05/13/17 07:00 Output Total 6650 ml Balance -6650 ml Output Urine Total 6650 ml ALLERGIES Allergies: Allergies Coded Allergies Type Severity Reaction Last Updated Verified Influenza Virus Vaccines Allergy Intermediate 05/09/17 Yes I S O L A T I O N *CONTACT* Allergy Unknown 05/12/17 Yes MEDS Medications: Current Medications Medications (Trade) Dose Ordered Sig/Chay Start Time Stop Time Status Last Admin Dose Admin Aspirin (Ecotrin) 81 mg DAILY 05/08/17 09:00 05/12/17 08:42 81 MG Atorvastatin Calcium (Lipitor) 10 mg QHS 05/08/17 21:00 05/12/17 21:16 10 MG Ceftriaxone Sodium 2 gm/ Sodium Chloride 100 ml @ 200 mls/hr Q24H 05/10/17 08:30 05/12/17 08:44 200 MLS/HR Celecoxib (CeleBREX) 200 mg BID 05/08/17 09:00 05/12/17 21:16 200 MG Dextrose (Dextrose 50%-Water Syringe) 12.5 gm PRN Q15MIN PRN 05/09/17 12:45 Duloxetine HCl (Cymbalta) 60 mg DAILY 05/08/17 09:00 05/12/17 08:42 60 MG Famotidine (Pepcid) 20 mg STK-MED ONCE 05/08/17 11:04 05/08/17 11:05 DC Fentanyl Citrate (Fentanyl 2ml Vial) 100 mcg STK-MED ONCE 05/08/17 11:05 05/08/17 11:06 DC Glimepiride (Amaryl) 4 mg DAILY 05/08/17 09:00 05/12/17 08:43 4 MG Heparin Sodium (Porcine) (Hep Lock Adult) 300 unit 1X ONCE 05/12/17 13:15 05/12/17 13:25 DC 05/12/17 13:34 300 UNIT Heparin Sodium/ Sodium Chloride 1,000 unit 1X ONCE 05/12/17 13:15 05/12/17 13:25 DC 05/12/17 13:33 1,000 UNIT Hydromorphone HCl (Dilaudid) 0.5 mg PRN Q10MIN PRN 05/08/17 10:45 05/09/17 10:44 DC Insulin Aspart (NovoLOG VIAL) 10 unit 1X ONCE 05/08/17 11:00 05/08/17 11:01 DC 05/08/17 10:55 10 UNIT Insulin Aspart (NovoLOG) 0-7 UNITS TIDWMEALS 05/09/17 13:00 05/12/17 17:14 3 UNITS Insulin Detemir (Levemir) 20 units PRN DAILY PRN 05/08/17 11:09 05/12/17 08:58 20 UNITS Lactobacillus Acidophilus (Bacid, Emperatriz-Bid) 1 tab TIDAC 05/08/17 07:30 05/12/17 17:09 1 TAB Lidocaine HCl (Lidocaine Pf 2% Vial) 5 ml STK-MED ONCE 05/08/17 11:04 05/08/17 11:05 DC Lidocaine/ Epinephrine (Xylocaine 1%-Epi 1:100,000) 20 ml 1X ONCE 05/12/17 13:15 05/12/17 13:25 DC 05/12/17 13:33 7 ML Losartan Potassium (Cozaar) 50 mg DAILY 05/09/17 14:30 05/12/17 08:42 50 MG Metoprolol Tartrate (Lopressor) 25 mg BID 05/08/17 09:00 05/12/17 21:16 25 MG Metronidazole (Flagyl) 500 mg Q12HR 05/10/17 09:00 05/12/17 21:16 500 MG Midazolam HCl (Versed) 2 mg STK-MED ONCE 05/08/17 11:52 05/08/17 11:53 DC Midodrine (Proamatine) 2.5 mg [id number] 05/08/17 08:00 05/13/17 06:43 2.5 MG Morphine Sulfate 1 mg PRN Q10MIN PRN 05/08/17 10:45 05/09/17 10:44 DC Non-Formulary Medication 20 unit PRN DAILY PRN 05/08/17 07:30 05/08/17 11:09 DC Ondansetron HCl (Zofran) 4 mg STK-MED ONCE 05/08/17 11:04 05/08/17 11:05 DC Piperacillin Sod/ Tazobactam Sod (Zosyn Per Pharmacy) 1 each PRN DAILY PRN 05/07/17 12:45 05/10/17 13:33 DC Piperacillin Sod/ Tazobactam Sod 3.375 gm/Sodium Chloride 50 ml @ 100 mls/hr Q6HRS 05/07/17 18:00 05/10/17 08:21 DC 05/10/17 05:30 100 MLS/HR Prochlorperazine Edisylate (Compazine) 5 mg PACU PRN PRN 05/08/17 10:45 05/09/17 10:44 DC Propofol 50 ml @ As Directed STK-MED ONCE 05/08/17 11:52 05/08/17 11:53 DC Ringer's Solution 1,000 ml @ 30 mls/hr Q24H 05/08/17 10:42 05/08/17 22:41 DC Sodium Chloride 1,000 ml @ 100 mls/hr 1X ONCE 05/07/17 12:45 05/07/17 22:44 DC 05/07/17 16:25 100 MLS/HR Tamsulosin HCl (Flomax) 0.4 mg DAILY 05/08/17 09:00 05/12/17 08:42 0.4 MG Vancomycin HCl 1 each 1X ONCE 05/11/17 01:30 05/11/17 01:31 DC 05/11/17 01:30 1 EACH Vancomycin HCl (Vanco Per Pharmacy) 1 each PRN DAILY PRN 05/07/17 12:45 05/12/17 11:16 1 EACH Vancomycin HCl 1.5 gm/Sodium Chloride 500 ml @ 250 mls/hr Q18H 05/09/17 14:00 05/12/17 13:58 250 MLS/HR Vancomycin HCl 1.75 gm/Sodium Chloride 500 ml @ 250 mls/hr 1X ONCE 05/07/17 13:00 05/07/17 14:59 DC 05/07/17 13:48 250 MLS/HR LAB Lab: Laboratory Tests Test 05/12/17 11:17 05/12/17 17:00 05/12/17 20:49 05/13/17 05:00 Glucose (Fingerstick) 235 mg/dL (70-99) 199 mg/dL (70-99) 206 mg/dL (70-99) Sodium Level 141 mmol/L (136-145) Potassium Level 4.4 mmol/L (3.5-5.1) Chloride Level 104 mmol/L (98-107) Carbon Dioxide Level 32 mmol/L (21-32) Anion Gap 5 (6-14) Blood Urea Nitrogen 20 mg/dL (8-26) Creatinine 0.8 mg/dL (0.7-1.3) Estimated GFR (Cockcroft-Gault) 93.0 Glucose Level 151 mg/dL (70-99) Calcium Level 8.4 mg/dL (8.5-10.1) Test 05/13/17 07:13 Glucose (Fingerstick) 133 mg/dL (70-99) LUISITO RUSSELL MD May 13, 2017 08:21
[2017-05-13] MEDS: GLIMEPIRIDE 2 MG TABLET. PO SCH (09:08)
[2017-05-13] MEDS: DULoxetine HCL 30 MG CAPSULE.DR PO SCH (09:08)
[2017-05-13] MEDS: CELECOXIB 200 MG CAPSULE. PO SCH ×2 (09:08→21:10)
[2017-05-13] MEDS: TAMSULOSIN 0.4 MG CAP.ER.24H. PO SCH (09:08)
[2017-05-13] MEDS: metroNIDAZOLE 500 MG TABLET PO SCH ×2 (09:08→21:09)
[2017-05-13] MEDS: LACTOBACILLUS ACIDOPH & BULGAR 1 TABLET. PO SCH ×3 (09:09→18:13)
[2017-05-13] MEDS: LOSARTAN POTASSIUM 50 MG TABLET. PO SCH (09:09)
[2017-05-13] MEDS: METOPROLOL TART IMMED RELEASE 25 MG TABLET. PO SCH ×2 (09:09→21:10)
[2017-05-13] MEDS: ASPIRIN ENTERIC COATED 81 MG TABLET.DR. PO SCH (09:10)
[2017-05-13] MEDS: VANCOMYCIN 250 MG/5 ML ORAL SOLUTION. PO SCH ×4 (09:10→21:10)
--- NOTE | 2017-05-13 09:20 | PDOC ---
Infectious Disease Note Subjective Subjective feeling well. Eating well. but but has some fecal incontinence at times still ROS ROS GEN: Denies fevers, chills, sweats HEENT: Denies blurred vision, sore throat CV: Denies chest pain RESP: Denies shortness of air, cough GI: Denies n/v NEURO: Denies confusion, dizziness MSK: Denies weakness, joint pain/swelling. foot ok Vital Sign Vital Signs Vital Signs Date Time Temp Pulse Resp B/P (MAP) Pulse Ox O2 Delivery O2 Flow Rate FiO2 05/13/17 09:09 69 150/81 05/13/17 07:00 97.5 16 100 Room Air 97.5 Physical Exam PHYSICAL EXAM GENERAL: NAD, Alert HEENT: PERRL, OC/OP -clear NECK: Supple, no JVD, no LN LUNGS: Clear HEART: S1S2, no gallop, no murmur ABD: Soft, NT, no organomegaly, no rebound Marley EXT: No edema, no cyanosis. 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 3, no focal neurologic deficit SKIN: No rash IV: Right chest PICC -clean Labs Lab Laboratory Tests Test 05/12/17 11:17 05/12/17 17:00 05/12/17 20:49 05/13/17 05:00 Glucose (Fingerstick) 235 mg/dL (70-99) 199 mg/dL (70-99) 206 mg/dL (70-99) Sodium Level 141 mmol/L (136-145) Potassium Level 4.4 mmol/L (3.5-5.1) Chloride Level 104 mmol/L (98-107) Carbon Dioxide Level 32 mmol/L (21-32) Anion Gap 5 (6-14) Blood Urea Nitrogen 20 mg/dL (8-26) Creatinine 0.8 mg/dL (0.7-1.3) Estimated GFR (Cockcroft-Gault) 93.0 Glucose Level 151 mg/dL (70-99) Calcium Level 8.4 mg/dL (8.5-10.1) Test 05/13/17 07:13 Glucose (Fingerstick) 133 mg/dL (70-99) Micro Proteus mirabilis Scant growth AEROBIC RES 2 Final Comment Methicillin - resistant Staphylococcus aureus Scant growth Based on resistance to oxacillin this isolate would be resistant to all currently available beta-lactam antimicrobial agents, with the exception of the newer cephalosporins with anti-MRSA activity, such as Ceftaroline AEROBIC RES 3 Final Enterococcus faecalis Scant growth ANTIMICROBIAL SUSCEPTIBILITY Final Comment S = Susceptible; I = Intermediate; R = Resistant P = Positive; N = Negative MICS are expressed in micrograms per mL Antibiotic RSLT#1 RSLT#2 RSLT#3 RSLT#4 Ampicillin R CONTINUED ON NEXT PAGE RUN DATE: 05/11/17 PAGE 2 RUN TIME: 1212 [facility] [address] [place] [address] Rigoberto Hernandez M.D., Geological Aide SPEC: [id number] PATIENT: MICKY SAAVEDRA [id number] ( Continued) Procedure Result ANTIMICROBIAL SUSCEPTIBILITY Final (continued) Cefazolin S Cefepime S Ceftriaxone S Cefuroxime S Ciprofloxacin S R Clindamycin S Ertapenem S Erythromycin S Gentamicin R S Levofloxacin S R Linezolid S Oxacillin R Penicillin R S Piperacillin R Rifampin S Tetracycline R S Tobramycin S Trimethoprim/Sulfa S S Vancomycin S S Objective Assessment 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 Collado 05/11. needs HBO Cath associated UTI Bacteremia -ID pending d/w micro -anaerobe. Clostridium species but not perfringens - ID not yet made BPH Leukocytosis DM C diff + 05/08 Plan Plan of Care cont Rocephin/flagy/ IV Vanc and po vanc for 5 more weeks Cont probiotics check cultures - blood anaerobic GPR from 05/07 d/w micro ID hopefully today again. F/u labs Awaiting placement TOYA MAI MD May 13, 2017 09:20
[2017-05-13] MEDS: VANCOMYCIN 1.5 GM in IV NORMAL SALINE 500ML BAG 500 ML IV SCH (09:21)
[2017-05-13 11:00] VITALS: BP 163/79
[2017-05-13 15:00] VITALS: BP 129/61
[2017-05-13] MEDS: VANCOMYCIN PER PHARMACY MC PRN (16:09)
[2017-05-13 19:12] VITALS: BP 155/77
[2017-05-13] MEDS: ATORVASTATIN CALCIUM 10 MG TABLET. PO SCH (21:09)
[2017-05-13] MEDS: INSULIN DETEMIR 300 UNITS/3 ML INSULN.PEN. SQ PRN (21:19)
[2017-05-13 23:15] VITALS: BP 139/56
[2017-05-14] MEDS: VANCOMYCIN 1.5 GM in IV NORMAL SALINE 500ML BAG 500 ML IV SCH ×2 (01:52→20:51)
[2017-05-14 03:00] VITALS: BP 169/81
[2017-05-14] MEDS: MIDODRINE 2.5 MG TABLET PO SCH ×3 (06:22→18:43)
[2017-05-14 07:00] VITALS: BP 162/80
--- NOTE | 2017-05-14 07:40 | PDOC ---
Infectious Disease Note Subjective Subjective feeling well. Eating well. Stools are some better ROS ROS GEN: Denies fevers, chills, sweats HEENT: Denies blurred vision, sore throat CV: Denies chest pain RESP: Denies shortness of air, cough GI: Denies n/v/d NEURO: Denies confusion, dizziness MSK: Denies weakness, joint pain/swelling Vital Sign Vital Signs Vital Signs Date Time Temp Pulse Resp B/P (MAP) Pulse Ox O2 Delivery O2 Flow Rate FiO2 05/14/17 06:22 70 169/81 05/14/17 03:00 98.9 16 100 Room Air 98.9 Physical Exam PHYSICAL EXAM GENERAL: NAD, Alert HEENT: PERRL, OC/OP -clear NECK: Supple, no JVD, no LN LUNGS: Clear HEART: S1S2, no gallop, no murmur ABD: Soft, NT, no organomegaly, no rebound Alcaraz EXT: No edema, no cyanosis. 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 3, no focal neurologic deficit SKIN: No rash IV: Right chest PICC -clean Labs Lab Laboratory Tests Test 05/13/17 11:11 05/13/17 16:31 05/13/17 20:45 Glucose (Fingerstick) 292 mg/dL (70-99) 361 mg/dL (70-99) 325 mg/dL (70-99) Micro Proteus mirabilis Scant growth AEROBIC RES 2 Final Comment Methicillin - resistant Staphylococcus aureus Scant growth Based on resistance to oxacillin this isolate would be resistant to all currently available beta-lactam antimicrobial agents, with the exception of the newer cephalosporins with anti-MRSA activity, such as Ceftaroline AEROBIC RES 3 Final Enterococcus faecalis Scant growth ANTIMICROBIAL SUSCEPTIBILITY Final Comment S = Susceptible; I = Intermediate; R = Resistant P = Positive; N = Negative MICS are expressed in micrograms per mL Antibiotic RSLT#1 RSLT#2 RSLT#3 RSLT#4 Ampicillin R CONTINUED ON NEXT PAGE RUN DATE: 05/11/17 PAGE 2 RUN TIME: 1212 [facility] [address] [place] [address] Rigoberto Hernandez M.D., Pet Sitting SPEC: [id number] PATIENT: MICKY SAAVEDRA [id number] ( Continued) Procedure Result ANTIMICROBIAL SUSCEPTIBILITY Final (continued) Cefazolin S Cefepime S Ceftriaxone S Cefuroxime S Ciprofloxacin S R Clindamycin S Ertapenem S Erythromycin S Gentamicin R S Levofloxacin S R Linezolid S Oxacillin R Penicillin R S Piperacillin R Rifampin S Tetracycline R S Tobramycin S Trimethoprim/Sulfa S S Vancomycin S S Objective Assessment 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 Collado 05/11. needs HBO Cath associated UTI Bacteremia -ID pending d/w micro -anaerobe. Clostridium species but not perfringens - ID not yet made BPH Leukocytosis DM C diff + 05/08 Plan Plan of Care ? Need for alcaraz - would d/c if possible. ? voiding trial cont Rocephin/flagy/ IV Vanc and po vanc for 5 more weeks Cont probiotics check cultures - blood anaerobic GPR from 05/07 d/w micro ID hopefully today again. F/u labs Awaiting placement TOYA MAI MD May 14, 2017 07:40
[2017-05-14] MEDS: INSULIN ASPART 300 UNITS/3 ML INSULN.PEN SQ SCH ×3 (08:00→12:30)
--- NOTE | 2017-05-14 08:30 | PDOC ---
GENERAL General: vss and afebrile. awake and alert and eating breakfast. sugars remain variable with fbs in 90's this am. chest clear and heart regular. foot bandaged. discussed with Dr. Collado and would like to see vascular opinion on patient prior to dc and will order same. otherwise same. Problems: VITAL SIGNS Vital Signs: Vital Signs Date Time Temp Pulse Resp B/P (MAP) Pulse Ox O2 Delivery O2 Flow Rate FiO2 05/14/17 07:00 97.9 66 18 162/80 (107) 99 Room Air 97.9 I & O I & O Intake and Output 05/14/17 07:00 Output Total 5150 ml Balance -5150 ml Output Urine Total 5150 ml # Bowel Movements 2 ALLERGIES Allergies: Allergies Coded Allergies Type Severity Reaction Last Updated Verified Influenza Virus Vaccines Allergy Intermediate 05/09/17 Yes I S O L A T I O N *CONTACT* Allergy Unknown 05/12/17 Yes MEDS Medications: Current Medications Medications (Trade) Dose Ordered Sig/Chay Start Time Stop Time Status Last Admin Dose Admin Aspirin (Ecotrin) 81 mg DAILY 05/08/17 09:00 05/13/17 09:10 81 MG Atorvastatin Calcium (Lipitor) 10 mg QHS 05/08/17 21:00 05/13/17 21:09 10 MG Ceftriaxone Sodium 2 gm/ Sodium Chloride 100 ml @ 200 mls/hr Q24H 05/10/17 08:30 05/13/17 11:52 200 MLS/HR Celecoxib (CeleBREX) 200 mg BID 05/08/17 09:00 05/13/17 21:10 200 MG Dextrose (Dextrose 50%-Water Syringe) 12.5 gm PRN Q15MIN PRN 05/09/17 12:45 Duloxetine HCl (Cymbalta) 60 mg DAILY 05/08/17 09:00 05/13/17 09:08 60 MG Famotidine (Pepcid) 20 mg STK-MED ONCE 05/08/17 11:04 05/08/17 11:05 DC Fentanyl Citrate (Fentanyl 2ml Vial) 100 mcg STK-MED ONCE 05/08/17 11:05 05/08/17 11:06 DC Glimepiride (Amaryl) 4 mg DAILY 05/08/17 09:00 05/13/17 09:08 4 MG Heparin Sodium (Porcine) (Hep Lock Adult) 300 unit 1X ONCE 05/12/17 13:15 05/12/17 13:25 DC 05/12/17 13:34 300 UNIT Heparin Sodium/ Sodium Chloride 1,000 unit 1X ONCE 05/12/17 13:15 05/12/17 13:25 DC 05/12/17 13:33 1,000 UNIT Hydromorphone HCl (Dilaudid) 0.5 mg PRN Q10MIN PRN 05/08/17 10:45 05/09/17 10:44 DC Insulin Aspart (NovoLOG VIAL) 10 unit 1X ONCE 05/08/17 11:00 05/08/17 11:01 DC 05/08/17 10:55 10 UNIT Insulin Aspart (NovoLOG) 0-7 UNITS TIDWMEALS 05/09/17 13:00 05/13/17 18:19 7 UNITS Insulin Detemir (Levemir) 20 units PRN DAILY PRN 05/08/17 11:09 05/13/17 21:19 20 UNITS Lactobacillus Acidophilus (Bacid, Emperatriz-Bid) 1 tab TIDAC 05/08/17 07:30 05/13/17 18:13 1 TAB Lidocaine HCl (Lidocaine Pf 2% Vial) 5 ml STK-MED ONCE 05/08/17 11:04 05/08/17 11:05 DC Lidocaine/ Epinephrine (Xylocaine 1%-Epi 1:100,000) 20 ml 1X ONCE 05/12/17 13:15 05/12/17 13:25 DC 05/12/17 13:33 7 ML Losartan Potassium (Cozaar) 50 mg DAILY 05/09/17 14:30 05/13/17 09:09 50 MG Metoprolol Tartrate (Lopressor) 25 mg BID 05/08/17 09:00 05/13/17 21:10 25 MG Metronidazole (Flagyl) 500 mg Q12HR 05/10/17 09:00 05/13/17 21:09 500 MG Midazolam HCl (Versed) 2 mg STK-MED ONCE 05/08/17 11:52 05/08/17 11:53 DC Midodrine (Proamatine) 2.5 mg [id number] 05/08/17 08:00 05/14/17 06:22 2.5 MG Morphine Sulfate 1 mg PRN Q10MIN PRN 05/08/17 10:45 05/09/17 10:44 DC Non-Formulary Medication 20 unit PRN DAILY PRN 05/08/17 07:30 05/08/17 11:09 DC Ondansetron HCl (Zofran) 4 mg STK-MED ONCE 05/08/17 11:04 05/08/17 11:05 DC Piperacillin Sod/ Tazobactam Sod (Zosyn Per Pharmacy) 1 each PRN DAILY PRN 05/07/17 12:45 05/10/17 13:33 DC Piperacillin Sod/ Tazobactam Sod 3.375 gm/Sodium Chloride 50 ml @ 100 mls/hr Q6HRS 05/07/17 18:00 05/10/17 08:21 DC 05/10/17 05:30 100 MLS/HR Prochlorperazine Edisylate (Compazine) 5 mg PACU PRN PRN 05/08/17 10:45 05/09/17 10:44 DC Propofol 50 ml @ As Directed STK-MED ONCE 05/08/17 11:52 05/08/17 11:53 DC Ringer's Solution 1,000 ml @ 30 mls/hr Q24H 05/08/17 10:42 05/08/17 22:41 DC Sodium Chloride 1,000 ml @ 100 mls/hr 1X ONCE 05/07/17 12:45 05/07/17 22:44 DC 05/07/17 16:25 100 MLS/HR Tamsulosin HCl (Flomax) 0.4 mg DAILY 05/08/17 09:00 05/13/17 09:08 0.4 MG Vancomycin HCl 1 each 1X ONCE 05/11/17 01:30 05/11/17 01:31 DC 05/11/17 01:30 1 EACH Vancomycin HCl (Vanco Per Pharmacy) 1 each PRN DAILY PRN 05/07/17 12:45 05/13/17 16:09 1 EACH Vancomycin HCl 1.5 gm/Sodium Chloride 500 ml @ 250 mls/hr Q18H 05/09/17 14:00 05/14/17 01:52 250 MLS/HR Vancomycin HCl 1.75 gm/Sodium Chloride 500 ml @ 250 mls/hr 1X ONCE 05/07/17 13:00 05/07/17 14:59 DC 05/07/17 13:48 250 MLS/HR LAB Lab: Laboratory Tests Test 05/13/17 11:11 05/13/17 16:31 05/13/17 20:45 05/14/17 07:16 Glucose (Fingerstick) 292 mg/dL (70-99) 361 mg/dL (70-99) 325 mg/dL (70-99) 96 mg/dL (70-99) LUISITO RUSSELL MD May 14, 2017 08:30
[2017-05-14 11:00] VITALS: BP 131/70
[2017-05-14] MEDS: metroNIDAZOLE 500 MG TABLET PO SCH ×2 (11:08→20:54)
[2017-05-14] MEDS: GLIMEPIRIDE 2 MG TABLET. PO SCH (11:08)
[2017-05-14] MEDS: LACTOBACILLUS ACIDOPH & BULGAR 1 TABLET. PO SCH ×3 (11:08→18:43)
[2017-05-14] MEDS: CELECOXIB 200 MG CAPSULE. PO SCH ×2 (11:08→20:54)
[2017-05-14] MEDS: VANCOMYCIN 250 MG/5 ML ORAL SOLUTION. PO SCH ×4 (11:08→20:54)
[2017-05-14] MEDS: TAMSULOSIN 0.4 MG CAP.ER.24H. PO SCH (11:09)
[2017-05-14] MEDS: LOSARTAN POTASSIUM 50 MG TABLET. PO SCH (11:09)
[2017-05-14] MEDS: DULoxetine HCL 30 MG CAPSULE.DR PO SCH (11:09)
[2017-05-14] MEDS: ASPIRIN ENTERIC COATED 81 MG TABLET.DR. PO SCH (11:09)
[2017-05-14] MEDS: METOPROLOL TART IMMED RELEASE 25 MG TABLET. PO SCH ×2 (11:10→20:54)
[2017-05-14] MEDS: VANCOMYCIN PER PHARMACY MC PRN (14:16)
[2017-05-14 15:00] VITALS: BP 135/71
--- NOTE | 2017-05-14 17:27 | PDOC2 ---
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 He has had some debridement. He was admitted for sepsis placed on IV antibiotics. Cultures are growing out resistant staph enterococcus. He also has apparently developed a C. difficile colitis following antibiotic therapy. Past consultation was requested. Patient did have noninvasive vascular studies performed in September 2016. These studies reported peroneal artery runoff on the right only. Posterior tibial artery was not visualized only poor flow seen in the anterior tibial artery. Flow noticed in the dorsalis pedis artery. Patient currently does walk with the help of walker. There is still weightbearing on this open ulcerative surface. No history of claudication. No history of ischemic rest pain. No history of TIAs or amaurosis fugax or stroke. Past Medical History Cardiovascular: CAD, HTN, Hyperlipidemia Psych: Anxiety, Depression Musculoskeletal: Osteoarthritis Renal/: Benign prostatic enlarg., Hematuria Endocrine: Diabetes Past Surgical History Past Surgical History: Tonsillectomy, Other Family History Family History: Diabetes, Hypertension, Other Social History No ALCOHOL: none Drugs: None Lives: with Family Current Problem List Problem List Problems Medical Problems: (1) Delirium Status: Acute Current Medications Current Medications Current Medications Vancomycin HCl (Vanco Per Pharmacy) 1 each PRN DAILY PRN MC SEE COMMENTS Last administered on 05/14/17 14:16; Start 05/07/17 at 12:45 Piperacillin Sod/ Tazobactam Sod (Zosyn Per Pharmacy) 1 each PRN DAILY PRN MC SEE COMMENTS; Start 05/07/17 at 12:45; Stop 05/10/17 at 13:33; Status DC Sodium Chloride 500 ml @ 500 mls/hr 1X ONCE IV Last administered on 05/07/17 13:11; Start 05/07/17 at 12:45; Stop 05/07/17 at 13:44; Status DC Ondansetron HCl (Zofran) 4 mg PRN Q8HRS PRN IV NAUSEA/VOMITING; Start 05/07/17 at 12:45; Stop 05/08/17 at 12:44; Status DC Morphine Sulfate 2 mg PRN Q2HR PRN IV PAIN; Start 05/07/17 at 12:45; Stop at 12:44; Status DC Sodium Chloride 1,000 ml @ 100 mls/hr 1X ONCE IV Last administered on 16:25; Start 05/07/17 at 12:45; Stop 05/07/17 at 22:44; Status DC Vancomycin HCl 1.75 gm/Sodium Chloride 500 ml @ 250 mls/hr 1X ONCE IV Last administered on 05/07/17 13:48; Start 05/07/17 at 13:00; Stop 05/07/17 at 14:59; Status DC Piperacillin Sod/ Tazobactam Sod 3.375 gm/Sodium Chloride 50 ml @ 100 mls/hr 1X ONCE IV Last administered on 05/07/17 13:09; Start 05/07/17 at 13:00; Stop 05/07/17 at 13:29; Status DC Piperacillin Sod/ Tazobactam Sod 3.375 gm/Sodium Chloride 50 ml @ 100 mls/hr Q6HRS IV Last administered on 05/10/17 05:30; Start 05/07/17 at 18:00; Stop 05/10 at 08:21; Status DC Vancomycin HCl 1.5 gm/Sodium Chloride 500 ml @ 250 mls/hr Q24H IV Last administered on 05/08/17 14:29; Start 05/08/17 at 14:00; Stop 05/09/17 at 14:01; Status DC Vancomycin HCl 1 each 1X ONCE MC Last administered on 05/09/17 13:15; Start at 13:30; Stop 05/09/17 at 13:31; Status DC Dextrose (Dextrose 50%-Water Syringe) 25 gm PRN Q15MIN PRN IV hypoglycemia; Start 05/07/17 at 17:30; Stop 05/09/17 at 12:21; Status DC Lactobacillus Acidophilus (Bacid, Emperatriz-Bid) 1 tab TIDAC PO Last administered on 05/14/17 11:28; Start 05/08/17 at 07:30 Aspirin (Ecotrin) 81 mg DAILY PO Last administered on 05/14/17 11:09; Start at 09:00 Atorvastatin Calcium (Lipitor) 10 mg QHS PO Last administered on 05/13/17 21: 09; Start 05/08/17 at 21:00 Celecoxib (CeleBREX) 200 mg BID PO Last administered on 05/14/17 11:08; Start 05/08/17 at 09:00 Metoprolol Tartrate (Lopressor) 25 mg BID PO Last administered on 05/14/17 11: 10; Start 05/08/17 at 09:00 Midodrine (Proamatine) 2.5 mg [id number] PO Last administered on 05/14/17 11:10; Start 05/08/17 at 08:00 Tamsulosin HCl (Flomax) 0.4 mg DAILY PO Last administered on 05/14/17 11:09; Start 05/08/17 at 09:00 Duloxetine HCl (Cymbalta) 60 mg DAILY PO Last administered on 05/14/17 11:09; Start 05/08/17 at 09:00 Glimepiride (Amaryl) 4 mg DAILY PO Last administered on 05/14/17 11:08; Start 05/08/17 at 09:00 Non-Formulary Medication 20 unit PRN DAILY PRN SQ ONLY IF BS >200; Start at 07:30; Stop 05/08/17 at 11:09; Status DC Ondansetron HCl (Zofran) 4 mg PRN Q6HRS PRN IV NAUSEA/VOMITING; Start 05/08/17 at 10:45; Stop 05/09/17 at 10:44; Status DC Fentanyl Citrate (Fentanyl 2ml Vial) 25 mcg PRN Q5MIN PRN IV MILD PAIN; Start 05/08/17 at 10:45; Stop 05/09/17 at 10:44; Status DC Fentanyl Citrate (Fentanyl 2ml Vial) 50 mcg PRN Q5MIN PRN IV MODERATE PAIN; Start 05/08/17 at 10:45; Stop 05/09/17 at 10:44; Status DC Morphine Sulfate 1 mg PRN Q10MIN PRN IV SEVERE PAIN; Start 05/08/17 at 10:45; Stop 05/09/17 at 10:44; Status DC Ringer's Solution 1,000 ml @ 30 mls/hr Q24H IV ; Start 05/08/17 at 10:42; Stop 05/08/17 at 22:41; Status DC Lidocaine HCl 2 ml PRN 1X PRN ID PRIOR TO IV START; Start 05/08/17 at 10:45; Stop 05/09/17 at 10:44; Status DC Hydromorphone HCl (Dilaudid) 0.5 mg PRN Q10MIN PRN IV SEV PAIN, Second choice; Start 05/08/17 at 10:45; Stop 05/09/17 at 10:44; Status DC Prochlorperazine Edisylate (Compazine) 5 mg PACU PRN PRN IV NAUSEA, MRX1; Start 05/08/17 at 10:45; Stop 05/09/17 at 10:44; Status DC Insulin Aspart (NovoLOG VIAL) 100 unit STK-MED ONCE SQ ; Start 05/08/17 at 10:51 ; Stop 05/08/17 at 10:52; Status DC Insulin Aspart (NovoLOG VIAL) 10 unit 1X ONCE SQ Last administered on t 10:55; Start 05/08/17 at 11:00; Stop 05/08/17 at 11:01; Status DC Propofol 20 ml @ As Directed STK-MED ONCE IV ; Start 05/08/17 at 11:04; Stop 05/08 at 11:05; Status DC Lidocaine HCl (Lidocaine Pf 2% Vial) 5 ml STK-MED ONCE .ROUTE ; Start 05/08/17 at 11:04; Stop 05/08/17 at 11:05; Status DC Famotidine (Pepcid) 20 mg STK-MED ONCE .ROUTE ; Start 05/08/17 at 11:04; Stop 05/08/17 at 11:05; Status DC Ondansetron HCl (Zofran) 4 mg STK-MED ONCE .ROUTE ; Start 05/08/17 at 11:04; Stop 05/08/17 at 11:05; Status DC Fentanyl Citrate (Fentanyl 2ml Vial) 100 mcg STK-MED ONCE .ROUTE ; Start at 11:05; Stop 05/08/17 at 11:06; Status DC Insulin Detemir (Levemir) 20 units PRN DAILY PRN SQ ONLY IF BS >200 Last administered on 05/13/17t 21:19; Start 05/08/17 at 11:09 Propofol 50 ml @ As Directed STK-MED ONCE IV ; Start 05/08/17 at 11:52; Stop 05/08 at 11:53; Status DC Midazolam HCl (Versed) 2 mg STK-MED ONCE .ROUTE ; Start 05/08/17 at 11:52; Stop 05/08/17 at 11:53; Status DC Vancomycin HCl 250 mg [id number] PO Last administered on 05/14/17 14:40; Start at 09:00 Insulin Aspart (NovoLOG) 10 units 1X ONCE SQ Last administered on 05/09/17 12: 25; Start 05/09/17 at 12:15; Stop 05/09/17 at 12:16; Status DC Insulin Aspart (NovoLOG) 0-9 UNITS TIDWMEALS SQ ; Start 05/09/17 at 12:30; Stop 05/09/17 at 12:47; Status DC Dextrose (Dextrose 50%-Water Syringe) 12.5 gm PRN Q15MIN PRN IV SEE COMMENTS; Start 05/09/17 at 12:30; Stop 05/09/17 at 12:47; Status DC Insulin Aspart (NovoLOG) 0-7 UNITS TIDWMEALS SQ Last administered on 05/14/17 11:31; Start 05/09/17 at 13:00 Dextrose (Dextrose 50%-Water Syringe) 12.5 gm PRN Q15MIN PRN IV SEE COMMENTS; Start 05/09/17 at 12:45 Losartan Potassium (Cozaar) 50 mg DAILY PO Last administered on 05/14/17 11:09 ; Start 05/09/17 at 14:30 Vancomycin HCl 1.5 gm/Sodium Chloride 500 ml @ 250 mls/hr Q18H IV Last administered on 05/14/17 01:52; Start 05/09/17 at 14:00 Vancomycin HCl 1 each 1X ONCE MC Last administered on 05/11/17 01:30; Start 05/11/17 at 01:30; Stop 05/11/17 at 01:31; Status DC Ceftriaxone Sodium 2 gm/ Sodium Chloride 100 ml @ 200 mls/hr Q24H IV Last administered on 05/14/17 11:06; Start 05/10/17 at 08:30 Metronidazole (Flagyl) 500 mg Q12HR PO Last administered on 05/14/17 11:08; Start 05/10/17 at 09:00 Heparin Sodium (Porcine) (Hep Lock Adult) 500 unit STK-MED ONCE IV ; Start 05/12 at 11:19; Stop 05/12/17 at 11:20; Status DC Lidocaine/ Epinephrine (Xylocaine 1%-Epi 1:100,000) 20 ml STK-MED ONCE .ROUTE ; Start 05/12/17 at 11:19; Stop 05/12/17 at 11:20; Status DC Heparin Sodium/ Sodium Chloride 500 ml @ As Directed STK-MED ONCE .ROUTE ; Start 05/12/17 at 11:19; Stop 05/12/17 at 11:20; Status DC Heparin Sodium/ Sodium Chloride 1,000 unit 1X ONCE IART Last administered on 13:33; Start 05/12/17 at 13:15; Stop 05/12/17 at 13:25; Status DC Lidocaine/ Epinephrine (Xylocaine 1%-Epi 1:100,000) 20 ml 1X ONCE INJ Last administered on 05/12/17 13:33; Start 05/12/17 at 13:15; Stop 05/12/17 at 13:25 ; Status DC Heparin Sodium (Porcine) (Hep Lock Adult) 300 unit 1X ONCE IV Last administered on 05/12/17 13:34; Start 05/12/17 at 13:15; Stop 05/12/17 at 13:25 ; Status DC Active Scripts Active Atorvastatin Calcium 10 Mg Tablet 10 Mg PO QHS Metoprolol Tartrate 25 Mg Tablet 25 Mg PO BID Midodrine Hcl 2.5 Mg Tablet 2.5 Mg PO [id number] Reported Emperatriz-Bid Caplet (Acidoph/L.bulg/Bif.b/S.thermop) 1 Each Tablet 1 Each PO TIDAC Aspirin Ec (Aspirin) 81 Mg Tablet.dr 1 Tab PO DAILY Lantus (Insulin Glargine,Hum.rec.anlog) 100 Unit/1 Ml Vial 20 Unit SQ PRN PRN ONLY IF BLOOD SUGAR GREATER THAN 200. Glimepiride 4 Mg Tablet 4 Mg PO DAILY Celebrex (Celecoxib) 200 Mg Capsule 200 Mg PO BID 30 Days Duloxetine Hcl 60 Mg Capsule.dr 60 Mg PO DAILY Tamsulosin Hcl 0.4 Mg Cap.er.24h 0.4 Mg PO DAILY Allergies Allergies: Coded Allergies: Influenza Virus Vaccines (Verified Allergy, Intermediate, 05/09/17) I S O L A T I O N *CONTACT* (Verified Allergy, Unknown, 05/12/17) mrsa Physical Exam General: Alert, Oriented X3 Extremities: Other (palpable femoral and popliteal pulses bilaterally. Absent pedal pulses bilaterally.) Neuro: Other (decreased sensation in both feet.) MUSCULOSKELETAL: Other (neuropathic deformity involving the digits of both feet.Severe deformity of the right first metatarsophalangeal joint partial subluxation. There was an ulceration on the plantar surface of the metatarsophalangeal joint which extends to bone. Cannot tell if the joint spaces directly involved or not) Vitals VITALS Vital Signs Date Time Temp Pulse Resp B/P (MAP) Pulse Ox O2 Delivery O2 Flow Rate FiO2 05/14/17 11:10 66 162/80 05/14/17 11:00 97.6 18 100 Room Air 97.6 05/14/17 08:22 8.0 Labs Labs Laboratory Tests Test 05/12/17 20:49 05/13/17 05:00 05/13/17 07:13 05/13/17 11:11 Glucose (Fingerstick) 206 mg/dL (70-99) 133 mg/dL (70-99) 292 mg/dL (70-99) Sodium Level 141 mmol/L (136-145) Potassium Level 4.4 mmol/L (3.5-5.1) Chloride Level 104 mmol/L (98-107) Carbon Dioxide Level 32 mmol/L (21-32) Anion Gap 5 (6-14) Blood Urea Nitrogen 20 mg/dL (8-26) Creatinine 0.8 mg/dL (0.7-1.3) Estimated GFR (Cockcroft-Gault) 93.0 Glucose Level 151 mg/dL (70-99) Calcium Level 8.4 mg/dL (8.5-10.1) Test 05/13/17 16:31 05/13/17 20:45 05/14/17 07:16 05/14/17 11:21 Glucose (Fingerstick) 361 mg/dL (70-99) 325 mg/dL (70-99) 96 mg/dL (70-99) 186 mg/dL (70-99) Test 05/14/17 16:32 Glucose (Fingerstick) 280 mg/dL (70-99) Laboratory Tests Test 05/13/17 20:45 05/14/17 07:16 05/14/17 11:21 05/14/17 16:32 Glucose (Fingerstick) 325 mg/dL (70-99) 96 mg/dL (70-99) 186 mg/dL (70-99) 280 mg/dL (70-99) Assessment/Plan Assessment/Plan 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 Impaired perfusion of the right foot based upon ultrasound examination performed in September 2016. I recommended arteriographic evaluation of the lower extremities to see if there is anything that can be done to improve forefoot perfusion. Once his arteriogram is available for review we'll make further recommendations. I suspect that he will need additional bone and soft tissue divided treatment of the first metatarsal phalangeal joint to achieve wound healing. This procedure after optimizing blood flow into his foot. Thank you for this consult. ELLA ABARCA MD May 14, 2017 17:27
[2017-05-14 19:00] VITALS: BP 154/73
[2017-05-14] MEDS: INSULIN DETEMIR 300 UNITS/3 ML INSULN.PEN. SQ PRN (19:50)
[2017-05-14] MEDS: ATORVASTATIN CALCIUM 10 MG TABLET. PO SCH (20:54)
[2017-05-14 23:00] VITALS: BP 128/58
[2017-05-15] VITALS (11 sets, daily range): BP systolic 118–157; BP diastolic 60–77
[2017-05-15] MEDS: LACTOBACILLUS ACIDOPH & BULGAR 1 TABLET. PO SCH ×3 (05:42→18:09)
[2017-05-15] MEDS: MIDODRINE 2.5 MG TABLET PO SCH ×3 (05:42→18:09)
[2017-05-15] MEDS: INSULIN ASPART 300 UNITS/3 ML INSULN.PEN SQ SCH ×3 (08:00→18:08)
--- NOTE | 2017-05-15 08:13 | PDOC ---
GENERAL General: vss and afebrile. sugars till variable with 300 yesterday pm and 54 this am. awake and alert. ongoing iv antibiotics for osteo. for arteriogram lower extremities this pm and revascularization hopefully so can get foot healed and may preclude need for hyperbaric O2 therapy which is holding up any kind of dc to another facility at present. Problems: VITAL SIGNS Vital Signs: Vital Signs Date Time Temp Pulse Resp B/P (MAP) Pulse Ox O2 Delivery O2 Flow Rate FiO2 05/15/17 07:00 97.7 78 20 157/77 (103) 97 Room Air 97.7 05/14/17 08:22 8.0 I & O I & O Intake and Output 05/15/17 07:00 Intake Total 360 ml Output Total 2400 ml Balance -2040 ml Intake Oral 360 ml Output Urine Total 2400 ml # Bowel Movements 5 ALLERGIES Allergies: Allergies Coded Allergies Type Severity Reaction Last Updated Verified Influenza Virus Vaccines Allergy Intermediate 05/09/17 Yes I S O L A T I O N *CONTACT* Allergy Unknown 05/12/17 Yes MEDS Medications: Current Medications Medications (Trade) Dose Ordered Sig/Chay Start Time Stop Time Status Last Admin Dose Admin Aspirin (Ecotrin) 81 mg DAILY 05/08/17 09:00 Future Hold 05/14/17 11:09 81 MG Atorvastatin Calcium (Lipitor) 10 mg QHS 05/08/17 21:00 05/14/17 20:54 10 MG Ceftriaxone Sodium 2 gm/ Sodium Chloride 100 ml @ 200 mls/hr Q24H 05/10/17 08:30 05/14/17 11:06 200 MLS/HR Celecoxib (CeleBREX) 200 mg BID 05/08/17 09:00 05/14/17 20:54 200 MG Dextrose (Dextrose 50%-Water Syringe) 12.5 gm PRN Q15MIN PRN 05/09/17 12:45 Duloxetine HCl (Cymbalta) 60 mg DAILY 05/08/17 09:00 05/14/17 11:09 60 MG Famotidine (Pepcid) 20 mg STK-MED ONCE 05/08/17 11:04 05/08/17 11:05 DC Fentanyl Citrate (Fentanyl 2ml Vial) 100 mcg STK-MED ONCE 05/08/17 11:05 05/08/17 11:06 DC Glimepiride (Amaryl) 4 mg DAILY 05/08/17 09:00 05/14/17 11:08 4 MG Heparin Sodium (Porcine) (Hep Lock Adult) 300 unit 1X ONCE 05/12/17 13:15 05/12/17 13:25 DC 05/12/17 13:34 300 UNIT Heparin Sodium/ Sodium Chloride 1,000 unit 1X ONCE 05/12/17 13:15 05/12/17 13:25 DC 05/12/17 13:33 1,000 UNIT Hydromorphone HCl (Dilaudid) 0.5 mg PRN Q10MIN PRN 05/08/17 10:45 05/09/17 10:44 DC Insulin Aspart (NovoLOG VIAL) 10 unit 1X ONCE 05/08/17 11:00 05/08/17 11:01 DC 05/08/17 10:55 10 UNIT Insulin Aspart (NovoLOG) 0-7 UNITS TIDWMEALS 05/09/17 13:00 05/14/17 11:31 3 UNITS Insulin Detemir (Levemir) 20 units PRN DAILY PRN 05/08/17 11:09 05/14/17 19:50 20 UNITS Lactobacillus Acidophilus (Bacid, Emperatriz-Bid) 1 tab TIDAC 05/08/17 07:30 05/15/17 05:42 1 TAB Lidocaine HCl (Lidocaine Pf 2% Vial) 5 ml STK-MED ONCE 05/08/17 11:04 05/08/17 11:05 DC Lidocaine/ Epinephrine (Xylocaine 1%-Epi 1:100,000) 20 ml 1X ONCE 05/12/17 13:15 05/12/17 13:25 DC 05/12/17 13:33 7 ML Losartan Potassium (Cozaar) 50 mg DAILY 05/09/17 14:30 05/14/17 11:09 50 MG Metoprolol Tartrate (Lopressor) 25 mg BID 05/08/17 09:00 05/14/17 20:54 25 MG Metronidazole (Flagyl) 500 mg Q12HR 05/10/17 09:00 05/14/17 20:54 500 MG Midazolam HCl (Versed) 2 mg STK-MED ONCE 05/08/17 11:52 05/08/17 11:53 DC Midodrine (Proamatine) 2.5 mg [id number] 05/08/17 08:00 05/15/17 05:42 2.5 MG Morphine Sulfate 1 mg PRN Q10MIN PRN 05/08/17 10:45 05/09/17 10:44 DC Non-Formulary Medication 20 unit PRN DAILY PRN 05/08/17 07:30 05/08/17 11:09 DC Ondansetron HCl (Zofran) 4 mg STK-MED ONCE 05/08/17 11:04 05/08/17 11:05 DC Piperacillin Sod/ Tazobactam Sod (Zosyn Per Pharmacy) 1 each PRN DAILY PRN 05/07/17 12:45 05/10/17 13:33 DC Piperacillin Sod/ Tazobactam Sod 3.375 gm/Sodium Chloride 50 ml @ 100 mls/hr Q6HRS 05/07/17 18:00 05/10/17 08:21 DC 05/10/17 05:30 100 MLS/HR Prochlorperazine Edisylate (Compazine) 5 mg PACU PRN PRN 05/08/17 10:45 05/09/17 10:44 DC Propofol 50 ml @ As Directed STK-MED ONCE 05/08/17 11:52 05/08/17 11:53 DC Ringer's Solution 1,000 ml @ 30 mls/hr Q24H 05/08/17 10:42 05/08/17 22:41 DC Sodium Chloride 1,000 ml @ 100 mls/hr 1X ONCE 05/07/17 12:45 05/07/17 22:44 DC 05/07/17 16:25 100 MLS/HR Tamsulosin HCl (Flomax) 0.4 mg DAILY 05/08/17 09:00 05/14/17 11:09 0.4 MG Vancomycin HCl 1 each 1X ONCE 05/11/17 01:30 05/11/17 01:31 DC 05/11/17 01:30 1 EACH Vancomycin HCl (Vanco Per Pharmacy) 1 each PRN DAILY PRN 05/07/17 12:45 05/14/17 14:16 1 EACH Vancomycin HCl 1.5 gm/Sodium Chloride 500 ml @ 250 mls/hr Q18H 05/09/17 14:00 05/14/17 20:51 250 MLS/HR Vancomycin HCl 1.75 gm/Sodium Chloride 500 ml @ 250 mls/hr 1X ONCE 05/07/17 13:00 05/07/17 14:59 DC 05/07/17 13:48 250 MLS/HR LAB Lab: Laboratory Tests Test 05/14/17 11:21 05/14/17 16:32 05/14/17 20:47 05/15/17 07:39 Glucose (Fingerstick) 186 mg/dL (70-99) 280 mg/dL (70-99) 322 mg/dL (70-99) 54 mg/dL (70-99) LUISITO RUSSELL MD May 15, 2017 08:13
--- NOTE | 2017-05-15 08:22 | PDOC ---
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 Impaired perfusion of the right foot based upon ultrasound examination performed in September 2016. Recommend arteriographic evaluation of the lower extremities to see if there is anything that can be done to improve forefoot perfusion. This is scheduled for later today. Once his arteriogram is available for review we'll make further recommendations. Patient may need additional bone and soft tissue divided treatment of the first metatarsal phalangeal joint to achieve wound healing. This procedure after optimizing blood flow into his foot. RICKEY PEACOCK APRN May 15, 2017 08:22
[2017-05-15] MEDS: CELECOXIB 200 MG CAPSULE. PO SCH ×2 (08:23→21:42)
[2017-05-15] MEDS: VANCOMYCIN 250 MG/5 ML ORAL SOLUTION. PO SCH ×4 (08:23→21:42)
[2017-05-15] MEDS: METOPROLOL TART IMMED RELEASE 25 MG TABLET. PO SCH ×2 (08:24→21:44)
[2017-05-15] MEDS: TAMSULOSIN 0.4 MG CAP.ER.24H. PO SCH (08:24)
[2017-05-15] MEDS: DULoxetine HCL 30 MG CAPSULE.DR PO SCH (08:24)
[2017-05-15] MEDS: metroNIDAZOLE 500 MG TABLET PO SCH ×2 (08:24→21:43)
[2017-05-15] MEDS: GLIMEPIRIDE 2 MG TABLET. PO SCH (08:25)
[2017-05-15] MEDS: LOSARTAN POTASSIUM 50 MG TABLET. PO SCH (08:25)
[2017-05-15 08:44] LABS: INR 1.1 (0.8-1.1); PROTHROMBIN TIME PATIENT 13.4 SEC (11.7-14.0)
--- NOTE | 2017-05-15 09:13 | PDOC ---
ORTHO PROGRESS NOTES Subjective He is scheduled to undergo an arteriogram today. He tells me feels like he is doing okay otherwise Vitals Vital Signs Date Time Temp Pulse Resp B/P (MAP) Pulse Ox O2 Delivery O2 Flow Rate FiO2 05/15/17 08:25 78 157/77 05/15/17 07:00 97.7 20 97 Room Air 97.7 05/14/17 08:22 8.0 Labs Laboratory Tests Test 05/13/17 11:11 05/13/17 16:31 05/13/17 20:45 05/14/17 07:16 Glucose (Fingerstick) 292 mg/dL (70-99) 361 mg/dL (70-99) 325 mg/dL (70-99) 96 mg/dL (70-99) Test 05/14/17 11:21 05/14/17 16:32 05/14/17 20:47 05/15/17 07:39 Glucose (Fingerstick) 186 mg/dL (70-99) 280 mg/dL (70-99) 322 mg/dL (70-99) 54 mg/dL (70-99) Test 05/15/17 08:15 Prothrombin Time 13.4 SEC (11.7-14.0) Prothromb Time International Ratio 1.1 (0.8-1.1) Laboratory Tests Test 05/14/17 11:21 05/14/17 16:32 05/14/17 20:47 05/15/17 07:39 Glucose (Fingerstick) 186 mg/dL (70-99) 280 mg/dL (70-99) 322 mg/dL (70-99) 54 mg/dL (70-99) Test 05/15/17 08:15 Prothrombin Time 13.4 SEC (11.7-14.0) Prothromb Time International Ratio 1.1 (0.8-1.1) Notes On examination, he is in bed. Examination of his foot reveals a small amount of necrotic debris at the base of the wounds. There is some serosanguineous drainage present as well. Assessment and Plan We will await vascular surgery recommendations to see if anything can be done to improve blood flow. He had initial debridement done with myself and will likely need future surgery for this as well. JUAN J LLOYD II, MD May 15, 2017 09:13
[2017-05-15] MEDS ORDERED: IOHEXOL 300 MG/ML 100ML VIAL. ONE (12:52)
[2017-05-15] MEDS ORDERED: IODIXANOL 320MG/ML 50ML VIAL. ONE (12:52)
[2017-05-15] MEDS ORDERED: IODIXANOL 320 MG/ML 100 ML VIAL. ONE (12:52)
[2017-05-15] MEDS ORDERED: HEPARIN for ARTERIAL LINE 1,500 ML ONE (12:52)
[2017-05-15] MEDS ORDERED: LIDOCAINE 1% / SOD BICARB 8.4% 20 ML VIAL. IJ ONE ×2 (12:52→13:45)
[2017-05-15] MEDS ORDERED: MIDAZOLAM HCL/PF 2 MG/2 ML VIAL. ONE (13:30)
[2017-05-15] MEDS ORDERED: fentaNYL PF VIAL 100 MCG/2 ML VIAL ONE (13:30)
[2017-05-15] MEDS ORDERED: IODIXANOL 320 MG/ML 100 ML VIAL. IART ONE (13:45)
[2017-05-15] MEDS ORDERED: MIDAZOLAM HCL/PF 2 MG/2 ML VIAL. IV ONE (13:45)
[2017-05-15] MEDS ORDERED: fentaNYL PF VIAL 100 MCG/2 ML VIAL IV ONE (13:45)
[2017-05-15] MEDS ORDERED: CONTRAST GIVEN MC PRN (14:00)
[2017-05-15] MEDS: VANCOMYCIN PER PHARMACY MC PRN (14:07)
[2017-05-15] MEDS ORDERED: IOHEXOL 300 MG/ML 100ML VIAL. IART ONE (14:15)
[2017-05-15] MEDS: VANCOMYCIN 1.5 GM in IV NORMAL SALINE 500ML BAG 500 ML IV SCH (15:16)
--- NOTE | 2017-05-15 15:54 | RAD ---
Abdominal aortogram, bilateral oblique pelvic angiography, right lower extremity angiography including selective angiography of the distal popliteal artery 05/15/2017 Indication: Nonhealing right foot wound. Osteomyelitis. Discussion: The risks and benefits of the procedure were discussed the patient. Informed consent was obtained. The patient was brought to the fluoroscopy suite placed supine position. A timeout procedure was performed. The left groin was prepped and draped using maximum sterile barrier technique. Using the combination of ultrasound and fluoroscopic guidance, the left common femoral artery is accessed using micropuncture technique. A 5 Mosotho vascular sheath was placed. An Omni flush catheter was advanced to the abdominal aorta. An aortogram, and pelvic angiography, including bilateral obliques, was performed. The Omni Flush catheter was used to cross the aortic bifurcation. Hilar trimmed angiography was performed. For more detailed angiography of the distal arteries of the right lower extremity, a OOTU wire was advanced into the below the knee popliteal artery. A a Galaviz catheter was advanced into the distal popliteal artery and angiography of the distal popliteal artery and tibial vessels was performed. No significant aortoiliac stenosis is identified. No abdominal aortic aneurysm or dissection is identified. Bilateral common femoral arteries are patent. The right superficial femoral artery popliteal artery are widely patent. Minimal atherosclerotic irregularity is seen in the [id number] popliteal artery on the right. There is occlusion of the anterior tibial artery approximately 10 cm beyond its origin. There is occlusion of the posterior tibial artery at its origin. The ostium of the posterior tibial artery is poorly visualized. The peroneal artery is widely patent to the level of the ankle. 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 The distal posterior tibial artery is also occluded. Severe distal small vessel disease noted. There is a collateral arising from the distal peroneal artery which appears to supply the median plantar artery however supply to the distal foot appears to be significantly compromised. All wires and catheters were removed. Angio-Seal device was deployed to achieve hemostasis in the left groin. Sterile dressing was applied. No immediate complications were identified. Fluoroscopy time: 6.1 minutes Dose area product 224 The procedure was performed under conscious sedation including continuous cardiopulmonary monitoring via a dedicated sedation nurse. Sedation time: One hour Impression: No significant aortoiliac or femoropopliteal stenosis is identified. Single vessel to the right foot via the peroneal artery, with severe distal small vessel disease
[2017-05-15] MEDS: ATORVASTATIN CALCIUM 10 MG TABLET. PO SCH (21:43)
[2017-05-15] MEDS: INSULIN DETEMIR 300 UNITS/3 ML INSULN.PEN. SQ PRN (22:09)
[2017-05-16 02:58] VITALS: BP 131/65
[2017-05-16] MEDS: MIDODRINE 2.5 MG TABLET PO SCH ×3 (06:55→17:18)
[2017-05-16] MEDS: LACTOBACILLUS ACIDOPH & BULGAR 1 TABLET. PO SCH ×3 (06:55→17:05)
[2017-05-16 07:00] VITALS: BP 172/80
[2017-05-16] MEDS: INSULIN ASPART 300 UNITS/3 ML INSULN.PEN SQ SCH ×3 (07:46→17:08)
[2017-05-16] MEDS: VANCOMYCIN PER PHARMACY MC PRN ×2 (08:25→11:07)
[2017-05-16] MEDS: VANCOMYCIN 1.25 GM in IV NORMAL SALINE 250ML 250 ML IV SCH (09:30)
[2017-05-16] MEDS: VANCOMYCIN 250 MG/5 ML ORAL SOLUTION. PO SCH ×4 (09:30→22:31)
[2017-05-16] MEDS: TAMSULOSIN 0.4 MG CAP.ER.24H. PO SCH (09:31)
[2017-05-16] MEDS: CELECOXIB 200 MG CAPSULE. PO SCH ×2 (09:31→22:31)
[2017-05-16] MEDS: GLIMEPIRIDE 2 MG TABLET. PO SCH (09:31)
[2017-05-16] MEDS: LOSARTAN POTASSIUM 50 MG TABLET. PO SCH (09:32)
[2017-05-16] MEDS: METOPROLOL TART IMMED RELEASE 25 MG TABLET. PO SCH ×2 (09:32→22:31)
[2017-05-16] MEDS: DULoxetine HCL 30 MG CAPSULE.DR PO SCH (09:32)
[2017-05-16] MEDS: metroNIDAZOLE 500 MG TABLET PO SCH ×2 (09:33→22:31)
--- NOTE | 2017-05-16 09:54 | PDOC ---
GENERAL General: vss and afebrile. awake and alert and without complaints. chest clear and heart regular. right foot bandaged. 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 sugars overall not bad. continue antibiotics. Problems: VITAL SIGNS Vital Signs: Vital Signs Date Time Temp Pulse Resp B/P (MAP) Pulse Ox O2 Delivery O2 Flow Rate FiO2 05/16/17 09:32 76 172/80 05/16/17 07:00 97.9 20 98 Room Air 97.9 I & O I & O Intake and Output 05/16/17 07:00 Intake Total 200 ml Output Total 2700 ml Balance -2500 ml Intake Oral 200 ml Output Urine Total 2700 ml # Bowel Movements 1 ALLERGIES Allergies: Allergies Coded Allergies Type Severity Reaction Last Updated Verified Influenza Virus Vaccines Allergy Intermediate 05/09/17 Yes I S O L A T I O N *CONTACT* Allergy Unknown 05/12/17 Yes MEDS Medications: Current Medications Medications (Trade) Dose Ordered Sig/Chay Start Time Stop Time Status Last Admin Dose Admin Aspirin (Ecotrin) 81 mg DAILY 05/08/17 09:00 Future Hold 05/14/17 11:09 81 MG Atorvastatin Calcium (Lipitor) 10 mg QHS 05/08/17 21:00 05/15/17 21:43 10 MG Ceftriaxone Sodium 2 gm/ Sodium Chloride 100 ml @ 200 mls/hr Q24H 05/10/17 08:30 05/15/17 12:15 200 MLS/HR Celecoxib (CeleBREX) 200 mg BID 05/08/17 09:00 05/16/17 09:31 200 MG Dextrose (Dextrose 50%-Water Syringe) 12.5 gm PRN Q15MIN PRN 05/09/17 12:45 05/15/17 12:51 12.5 GM Duloxetine HCl (Cymbalta) 60 mg DAILY 05/08/17 09:00 05/16/17 09:32 60 MG Famotidine (Pepcid) 20 mg STK-MED ONCE 05/08/17 11:04 05/08/17 11:05 DC Fentanyl Citrate (Fentanyl 2ml Vial) 100 mcg 1X ONCE 05/15/17 13:45 05/15/17 13:50 DC 05/15/17 14:23 50 MCG Glimepiride (Amaryl) 4 mg DAILY 05/08/17 09:00 05/16/17 09:31 4 MG Heparin Sodium (Porcine) (Hep Lock Adult) 300 unit 1X ONCE 05/12/17 13:15 05/12/17 13:25 DC 05/12/17 13:34 300 UNIT Heparin Sodium/ Sodium Chloride 1,000 unit 1X ONCE 05/15/17 13:45 05/15/17 13:50 DC 05/15/17 14:21 1,000 UNIT Hydromorphone HCl (Dilaudid) 0.5 mg PRN Q10MIN PRN 05/08/17 10:45 05/09/17 10:44 DC Info (Do NOT chart on this entry -- for MONITORING) 1 each PRN DAILY PRN 05/15/17 14:00 05/17/17 13:59 Insulin Aspart (NovoLOG VIAL) 10 unit 1X ONCE 05/08/17 11:00 05/08/17 11:01 DC 05/08/17 10:55 10 UNIT Insulin Aspart (NovoLOG) 0-7 UNITS TIDWMEALS 05/09/17 13:00 05/15/17 18:08 3 UNITS Insulin Detemir (Levemir) 20 units PRN DAILY PRN 05/08/17 11:09 05/15/17 22:09 20 UNITS Iodixanol (Visipaque 320) 100 ml 1X ONCE 05/15/17 13:45 05/15/17 13:50 DC 05/15/17 14:22 28 ML Iohexol (Omnipaque 300 Mg/ml) 100 ml 1X ONCE 05/15/17 14:15 05/15/17 14:16 DC 05/15/17 14:22 50 ML Lactobacillus Acidophilus (Bacid, Emperatriz-Bid) 1 tab TIDAC 05/08/17 07:30 05/16/17 06:55 1 TAB Lidocaine HCl (Lidocaine Pf 2% Vial) 5 ml STK-MED ONCE 05/08/17 11:04 05/08/17 11:05 DC Lidocaine/ Epinephrine (Xylocaine 1%-Epi 1:100,000) 20 ml 1X ONCE 05/12/17 13:15 05/12/17 13:25 DC 05/12/17 13:33 7 ML Lidocaine/Sodium Bicarbonate (Buffered Lidocaine 1%) 20 ml 1X ONCE 05/15/17 13:45 05/15/17 13:50 DC 05/15/17 14:21 4 ML Losartan Potassium (Cozaar) 50 mg DAILY 05/09/17 14:30 05/16/17 09:32 50 MG Metoprolol Tartrate (Lopressor) 25 mg BID 05/08/17 09:00 05/16/17 09:32 25 MG Metronidazole (Flagyl) 500 mg Q12HR 05/10/17 09:00 05/16/17 09:33 500 MG Midazolam HCl (Versed) 2 mg 1X ONCE 05/15/17 13:45 05/15/17 13:50 DC 05/15/17 14:22 1 MG Midodrine (Proamatine) 2.5 mg [id number] 05/08/17 08:00 05/16/17 06:55 2.5 MG Morphine Sulfate 1 mg PRN Q10MIN PRN 05/08/17 10:45 05/09/17 10:44 DC Non-Formulary Medication 20 unit PRN DAILY PRN 05/08/17 07:30 05/08/17 11:09 DC Ondansetron HCl (Zofran) 4 mg STK-MED ONCE 05/08/17 11:04 05/08/17 11:05 DC Piperacillin Sod/ Tazobactam Sod (Zosyn Per Pharmacy) 1 each PRN DAILY PRN 05/07/17 12:45 05/10/17 13:33 DC Piperacillin Sod/ Tazobactam Sod 3.375 gm/Sodium Chloride 50 ml @ 100 mls/hr Q6HRS 05/07/17 18:00 05/10/17 08:21 DC 05/10/17 05:30 100 MLS/HR Prochlorperazine Edisylate (Compazine) 5 mg PACU PRN PRN 05/08/17 10:45 05/09/17 10:44 DC Propofol 50 ml @ As Directed STK-MED ONCE 05/08/17 11:52 05/08/17 11:53 DC Ringer's Solution 1,000 ml @ 30 mls/hr Q24H 05/08/17 10:42 05/08/17 22:41 DC Sodium Chloride 1,000 ml @ 100 mls/hr 1X ONCE 05/07/17 12:45 05/07/17 22:44 DC 05/07/17 16:25 100 MLS/HR Tamsulosin HCl (Flomax) 0.4 mg DAILY 05/08/17 09:00 05/16/17 09:31 0.4 MG Vancomycin HCl (Vanco Per Pharmacy) 1 each PRN DAILY PRN 05/07/17 12:45 05/16/17 08:25 1 EACH Vancomycin HCl 1.25 gm/Sodium Chloride 250 ml @ 167 mls/hr Q18H 05/16/17 09:00 05/16/17 09:30 167 MLS/HR Vancomycin HCl 1.5 gm/Sodium Chloride 500 ml @ 250 mls/hr Q18H 05/09/17 14:00 05/16/17 08:22 DC 05/15/17 15:16 250 MLS/HR Vancomycin HCl 1.75 gm/Sodium Chloride 500 ml @ 250 mls/hr 1X ONCE 05/07/17 13:00 05/07/17 14:59 DC 05/07/17 13:48 250 MLS/HR LAB Lab: Laboratory Tests Test 05/15/17 12:00 05/15/17 13:06 05/15/17 16:36 05/15/17 20:46 Glucose (Fingerstick) 63 mg/dL (70-99) 100 mg/dL (70-99) 152 mg/dL (70-99) 306 mg/dL (70-99) Test 05/16/17 07:05 05/16/17 07:35 Glucose (Fingerstick) 111 mg/dL (70-99) Vancomycin Level Trough 20.3 mcg/mL (10.0-20.0) Vancomycin Last Dose Date 05/15/17 Vancomycin Last Dose Time 1400 LUISITO RUSSELL MD May 16, 2017 09:54
[2017-05-16 11:00] VITALS: BP 140/63
--- NOTE | 2017-05-16 13:45 | PDOC ---
SURGICAL PROGRESS NOTE Subjective no complaints Vital Signs Vital Signs Date Time Temp Pulse Resp B/P (MAP) Pulse Ox O2 Delivery O2 Flow Rate FiO2 05/16/17 11:00 98.6 76 20 140/63 (88) 99 Room Air 98.6 I&O Intake and Output 05/16/17 07:00 Intake Total 200 ml Output Total 2700 ml Balance -2500 ml Intake Oral 200 ml Output Urine Total 2700 ml # Bowel Movements 1 Extremities: Other (neuropathic ulcer plantar aspect of right 1st met head. Clean with good granulation) Labs Laboratory Tests Test 05/14/17 16:32 05/14/17 20:47 05/15/17 07:39 05/15/17 08:15 Glucose (Fingerstick) 280 mg/dL (70-99) 322 mg/dL (70-99) 54 mg/dL (70-99) Prothrombin Time 13.4 SEC (11.7-14.0) Prothromb Time International Ratio 1.1 (0.8-1.1) Test 05/15/17 12:00 05/15/17 13:06 05/15/17 16:36 05/15/17 20:46 Glucose (Fingerstick) 63 mg/dL (70-99) 100 mg/dL (70-99) 152 mg/dL (70-99) 306 mg/dL (70-99) Test 05/16/17 07:05 05/16/17 07:35 05/16/17 11:44 Glucose (Fingerstick) 111 mg/dL (70-99) 159 mg/dL (70-99) Vancomycin Level Trough 20.3 mcg/mL (10.0-20.0) Vancomycin Last Dose Date 05/15/17 Vancomycin Last Dose Time 1400 Laboratory Tests Test 05/15/17 16:36 05/15/17 20:46 05/16/17 07:05 05/16/17 07:35 Glucose (Fingerstick) 152 mg/dL (70-99) 306 mg/dL (70-99) 111 mg/dL (70-99) Vancomycin Level Trough 20.3 mcg/mL (10.0-20.0) Vancomycin Last Dose Date 05/15/17 Vancomycin Last Dose Time 1400 Test 05/16/17 11:44 Glucose (Fingerstick) 159 mg/dL (70-99) Problem List Problems Medical Problems: (1) Delirium Status: Acute Assessment/Plan Imp: 1. 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 Clean 2. angio report reviewed. Could not view films. 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 3. DM Rec: 1. no need at this time for further debridement, in my opinion 2. cont non weight bearing of the right forefoot, antibx and wound care. 3. revascularization is not necessary. Pt should heal with peroneal runoff. 4. f/u thursday. Problems: ARTI TRACY II, MD May 16, 2017 13:45
[2017-05-16 15:00] VITALS: BP 139/63
[2017-05-16 19:10] VITALS: BP 143/62
[2017-05-16] MEDS: ATORVASTATIN CALCIUM 10 MG TABLET. PO SCH (22:31)
[2017-05-16 22:50] VITALS: BP 154/75
[2017-05-17] MEDS: VANCOMYCIN 1.25 GM in IV NORMAL SALINE 250ML 250 ML IV SCH ×2 (02:55→21:45)
[2017-05-17 03:06] VITALS: BP 157/82
[2017-05-17] MEDS: MIDODRINE 2.5 MG TABLET PO SCH ×3 (06:10→17:44)
[2017-05-17 07:00] VITALS: BP 142/79
[2017-05-17 08:07] LABS: CALCIUM 8.8 mg/dL (8.5-10.1); CREATININE 0.8 mg/dL (0.7-1.3); POTASSIUM 4.2 mmol/L (3.5-5.1)
[2017-05-17] MEDS: LACTOBACILLUS ACIDOPH & BULGAR 1 TABLET. PO SCH ×3 (08:24→16:44)
[2017-05-17] MEDS: TAMSULOSIN 0.4 MG CAP.ER.24H. PO SCH (08:25)
[2017-05-17] MEDS: DULoxetine HCL 30 MG CAPSULE.DR PO SCH (08:25)
[2017-05-17] MEDS: metroNIDAZOLE 500 MG TABLET PO SCH ×2 (08:25→21:44)
[2017-05-17] MEDS: VANCOMYCIN 250 MG/5 ML ORAL SOLUTION. PO SCH ×4 (08:25→21:45)
[2017-05-17] MEDS: GLIMEPIRIDE 2 MG TABLET. PO SCH (08:25)
[2017-05-17] MEDS: LOSARTAN POTASSIUM 50 MG TABLET. PO SCH (08:26)
[2017-05-17] MEDS: CELECOXIB 200 MG CAPSULE. PO SCH ×2 (08:26→21:00)
[2017-05-17] MEDS: METOPROLOL TART IMMED RELEASE 25 MG TABLET. PO SCH ×2 (08:27→21:45)
[2017-05-17] MEDS: INSULIN ASPART 300 UNITS/3 ML INSULN.PEN SQ SCH ×3 (08:37→17:44)
[2017-05-17 11:00] VITALS: BP 160/77
[2017-05-17] MEDS: VANCOMYCIN PER PHARMACY MC PRN (11:31)
[2017-05-17] MEDS ORDERED: INSULIN ASPART 300 UNITS/3 ML INSULN.PEN SQ ONE (12:00)
--- NOTE | 2017-05-17 12:05 | PDOC ---
GENERAL General: vss and afebrile. awake and alert. sugars markedly increased today but levemir wasn't given last night? exam stable. no plans per vascular for revascularization. dc planning a nightmare with need for hyperbaric O2 on dc. Problems: VITAL SIGNS Vital Signs: Vital Signs Date Time Temp Pulse Resp B/P (MAP) Pulse Ox O2 Delivery O2 Flow Rate FiO2 05/17/17 11:00 98.0 78 16 160/77 (104) 91 Room Air 98.0 I & O I & O Intake and Output 05/17/17 07:00 Intake Total 600 ml Output Total 2400 ml Balance -1800 ml Intake Oral 600 ml Output Urine Total 2400 ml ALLERGIES Allergies: Allergies Coded Allergies Type Severity Reaction Last Updated Verified Influenza Virus Vaccines Allergy Intermediate 05/09/17 Yes I S O L A T I O N *CONTACT* Allergy Unknown 05/12/17 Yes MEDS Medications: Current Medications Medications (Trade) Dose Ordered Sig/Chay Start Time Stop Time Status Last Admin Dose Admin Aspirin (Ecotrin) 81 mg DAILY 05/08/17 09:00 05/17/17 11:15 DC 05/14/17 11:09 81 MG Atorvastatin Calcium (Lipitor) 10 mg QHS 05/08/17 21:00 05/16/17 22:31 10 MG Ceftriaxone Sodium 2 gm/ Sodium Chloride 100 ml @ 200 mls/hr Q24H 05/10/17 08:30 05/17/17 08:25 200 MLS/HR Celecoxib (CeleBREX) 200 mg BID 05/08/17 09:00 05/17/17 08:26 200 MG Dextrose (Dextrose 50%-Water Syringe) 12.5 gm PRN Q15MIN PRN 05/09/17 12:45 05/15/17 12:51 12.5 GM Duloxetine HCl (Cymbalta) 60 mg DAILY 05/08/17 09:00 05/17/17 08:25 60 MG Famotidine (Pepcid) 20 mg STK-MED ONCE 05/08/17 11:04 05/08/17 11:05 DC Fentanyl Citrate (Fentanyl 2ml Vial) 100 mcg 1X ONCE 05/15/17 13:45 05/15/17 13:50 DC 05/15/17 14:23 50 MCG Glimepiride (Amaryl) 4 mg DAILY 05/08/17 09:00 05/17/17 08:25 4 MG Heparin Sodium (Porcine) (Hep Lock Adult) 300 unit 1X ONCE 05/12/17 13:15 05/12/17 13:25 DC 05/12/17 13:34 300 UNIT Heparin Sodium/ Sodium Chloride 1,000 unit 1X ONCE 05/15/17 13:45 05/15/17 13:50 DC 05/15/17 14:21 1,000 UNIT Hydromorphone HCl (Dilaudid) 0.5 mg PRN Q10MIN PRN 05/08/17 10:45 05/09/17 10:44 DC Info (Do NOT chart on this entry -- for MONITORING) 1 each PRN DAILY PRN 05/15/17 14:00 05/17/17 13:59 Insulin Aspart (NovoLOG VIAL) 10 unit 1X ONCE 05/08/17 11:00 05/08/17 11:01 DC 05/08/17 10:55 10 UNIT Insulin Aspart (NovoLOG) 10 units 1X ONCE 05/17/17 12:00 05/17/17 12:01 DC Insulin Detemir (Levemir) 20 units HS 05/17/17 21:00 Iodixanol (Visipaque 320) 100 ml 1X ONCE 05/15/17 13:45 05/15/17 13:50 DC 05/15/17 14:22 28 ML Iohexol (Omnipaque 300 Mg/ml) 100 ml 1X ONCE 05/15/17 14:15 05/15/17 14:16 DC 05/15/17 14:22 50 ML Lactobacillus Acidophilus (Bacid, Emperatriz-Bid) 1 tab TIDAC 05/08/17 07:30 05/17/17 08:24 1 TAB Lidocaine HCl (Lidocaine Pf 2% Vial) 5 ml STK-MED ONCE 05/08/17 11:04 05/08/17 11:05 DC Lidocaine/ Epinephrine (Xylocaine 1%-Epi 1:100,000) 20 ml 1X ONCE 05/12/17 13:15 05/12/17 13:25 DC 05/12/17 13:33 7 ML Lidocaine/Sodium Bicarbonate (Buffered Lidocaine 1%) 20 ml 1X ONCE 05/15/17 13:45 05/15/17 13:50 DC 05/15/17 14:21 4 ML Losartan Potassium (Cozaar) 50 mg DAILY 05/09/17 14:30 05/17/17 08:26 50 MG Metoprolol Tartrate (Lopressor) 25 mg BID 05/08/17 09:00 05/17/17 08:27 25 MG Metronidazole (Flagyl) 500 mg Q12HR 05/10/17 09:00 05/17/17 08:25 500 MG Midazolam HCl (Versed) 2 mg 1X ONCE 05/15/17 13:45 05/15/17 13:50 DC 05/15/17 14:22 1 MG Midodrine (Proamatine) 2.5 mg [id number] 05/08/17 08:00 05/17/17 06:10 2.5 MG Morphine Sulfate 1 mg PRN Q10MIN PRN 05/08/17 10:45 05/09/17 10:44 DC Non-Formulary Medication 20 unit PRN DAILY PRN 05/08/17 07:30 05/08/17 11:09 DC Ondansetron HCl (Zofran) 4 mg STK-MED ONCE 05/08/17 11:04 05/08/17 11:05 DC Piperacillin Sod/ Tazobactam Sod (Zosyn Per Pharmacy) 1 each PRN DAILY PRN 05/07/17 12:45 05/10/17 13:33 DC Piperacillin Sod/ Tazobactam Sod 3.375 gm/Sodium Chloride 50 ml @ 100 mls/hr Q6HRS 05/07/17 18:00 05/10/17 08:21 DC 05/10/17 05:30 100 MLS/HR Prochlorperazine Edisylate (Compazine) 5 mg PACU PRN PRN 05/08/17 10:45 05/09/17 10:44 DC Propofol 50 ml @ As Directed STK-MED ONCE 05/08/17 11:52 05/08/17 11:53 DC Ringer's Solution 1,000 ml @ 30 mls/hr Q24H 05/08/17 10:42 05/08/17 22:41 DC Sodium Chloride 1,000 ml @ 100 mls/hr 1X ONCE 05/07/17 12:45 05/07/17 22:44 DC 05/07/17 16:25 100 MLS/HR Tamsulosin HCl (Flomax) 0.4 mg DAILY 05/08/17 09:00 05/17/17 08:25 0.4 MG Vancomycin HCl (Vanco Per Pharmacy) 1 each PRN DAILY PRN 05/07/17 12:45 05/17/17 11:31 1 EACH Vancomycin HCl 1.25 gm/Sodium Chloride 250 ml @ 167 mls/hr Q18H 05/16/17 09:00 05/17/17 02:55 167 MLS/HR Vancomycin HCl 1.5 gm/Sodium Chloride 500 ml @ 250 mls/hr Q18H 05/09/17 14:00 05/16/17 08:22 DC 05/15/17 15:16 250 MLS/HR Vancomycin HCl 1.75 gm/Sodium Chloride 500 ml @ 250 mls/hr 1X ONCE 05/07/17 13:00 05/07/17 14:59 DC 05/07/17 13:48 250 MLS/HR LAB Lab: Laboratory Tests Test 05/16/17 16:55 05/16/17 20:21 05/17/17 07:23 05/17/17 07:45 Glucose (Fingerstick) 228 mg/dL (70-99) 259 mg/dL (70-99) 245 mg/dL (70-99) Sodium Level 141 mmol/L (136-145) Potassium Level 4.2 mmol/L (3.5-5.1) Chloride Level 104 mmol/L (98-107) Carbon Dioxide Level 31 mmol/L (21-32) Anion Gap 6 (6-14) Blood Urea Nitrogen 17 mg/dL (8-26) Creatinine 0.8 mg/dL (0.7-1.3) Estimated GFR (Cockcroft-Gault) 93.0 Glucose Level 243 mg/dL (70-99) Calcium Level 8.8 mg/dL (8.5-10.1) Test 05/17/17 11:23 Glucose (Fingerstick) 417 mg/dL (70-99) LUIISTO RUSSELL MD May 17, 2017 12:05
[2017-05-17 15:00] VITALS: BP 132/79
[2017-05-17 19:15] VITALS: BP 132/76
[2017-05-17] MEDS ORDERED: INSULIN DETEMIR 300 UNITS/3 ML INSULN.PEN. SQ SCH (21:00)
[2017-05-17] MEDS: ATORVASTATIN CALCIUM 10 MG TABLET. PO SCH (21:44)
[2017-05-17 22:54] VITALS: BP 142/68
[2017-05-18 03:09] VITALS: BP 156/74
[2017-05-18] MEDS: MIDODRINE 2.5 MG TABLET PO SCH ×3 (07:00→16:57)
[2017-05-18 07:20] VITALS: BP 144/79
[2017-05-18] MEDS: INSULIN ASPART 300 UNITS/3 ML INSULN.PEN SQ SCH ×3 (08:00→17:01)
[2017-05-18] MEDS: LACTOBACILLUS ACIDOPH & BULGAR 1 TABLET. PO SCH ×3 (08:06→16:24)
--- NOTE | 2017-05-18 08:22 | PDOC ---
GENERAL General: vss and afebrile. awake and alert and without complaints. exam stable. sugar much better this am after getting evening insulin. dc planning nightmare continues based on payer problems. continue same. Problems: VITAL SIGNS Vital Signs: Vital Signs Date Time Temp Pulse Resp B/P (MAP) Pulse Ox O2 Delivery O2 Flow Rate FiO2 05/18/17 07:20 97.7 68 18 144/79 (100) 97 Room Air 97.7 I & O I & O Intake and Output 05/18/17 07:00 Intake Total 420 ml Output Total 4450 ml Balance -4030 ml Intake Oral 420 ml Output Urine Total 4450 ml # Bowel Movements 1 ALLERGIES Allergies: Allergies Coded Allergies Type Severity Reaction Last Updated Verified Influenza Virus Vaccines Allergy Intermediate 05/09/17 Yes I S O L A T I O N *CONTACT* Allergy Unknown 05/12/17 Yes MEDS Medications: Current Medications Medications (Trade) Dose Ordered Sig/Chay Start Time Stop Time Status Last Admin Dose Admin Aspirin (Ecotrin) 81 mg DAILY 05/08/17 09:00 05/17/17 11:15 DC 05/14/17 11:09 81 MG Atorvastatin Calcium (Lipitor) 10 mg QHS 05/08/17 21:00 05/17/17 21:44 10 MG Ceftriaxone Sodium 2 gm/ Sodium Chloride 100 ml @ 200 mls/hr Q24H 05/10/17 08:30 05/18/17 08:09 200 MLS/HR Celecoxib (CeleBREX) 200 mg BID 05/08/17 09:00 05/17/17 21:00 200 MG Dextrose (Dextrose 50%-Water Syringe) 12.5 gm PRN Q15MIN PRN 05/09/17 12:45 05/15/17 12:51 12.5 GM Duloxetine HCl (Cymbalta) 60 mg DAILY 05/08/17 09:00 05/17/17 08:25 60 MG Famotidine (Pepcid) 20 mg STK-MED ONCE 05/08/17 11:04 05/08/17 11:05 DC Fentanyl Citrate (Fentanyl 2ml Vial) 100 mcg 1X ONCE 05/15/17 13:45 05/15/17 13:50 DC 05/15/17 14:23 50 MCG Glimepiride (Amaryl) 4 mg DAILY 05/08/17 09:00 05/17/17 08:25 4 MG Heparin Sodium (Porcine) (Hep Lock Adult) 300 unit 1X ONCE 05/12/17 13:15 05/12/17 13:25 DC 05/12/17 13:34 300 UNIT Heparin Sodium/ Sodium Chloride 1,000 unit 1X ONCE 05/15/17 13:45 05/15/17 13:50 DC 05/15/17 14:21 1,000 UNIT Hydromorphone HCl (Dilaudid) 0.5 mg PRN Q10MIN PRN 05/08/17 10:45 05/09/17 10:44 DC Info (Do NOT chart on this entry -- for MONITORING) 1 each PRN DAILY PRN 05/15/17 14:00 05/17/17 13:59 DC Insulin Aspart (NovoLOG VIAL) 10 unit 1X ONCE 05/08/17 11:00 05/08/17 11:01 DC 05/08/17 10:55 10 UNIT Insulin Aspart (NovoLOG) 10 units 1X ONCE 05/17/17 12:00 05/17/17 12:01 DC 05/17/17 12:57 10 UNITS Insulin Detemir (Levemir) 20 units HS 05/17/17 21:00 05/17/17 21:55 20 UNITS Iodixanol (Visipaque 320) 100 ml 1X ONCE 05/15/17 13:45 05/15/17 13:50 DC 05/15/17 14:22 28 ML Iohexol (Omnipaque 300 Mg/ml) 100 ml 1X ONCE 05/15/17 14:15 05/15/17 14:16 DC 05/15/17 14:22 50 ML Lactobacillus Acidophilus (Bacid, Emperatriz-Bid) 1 tab TIDAC 05/08/17 07:30 05/18/17 08:06 1 TAB Lidocaine HCl (Lidocaine Pf 2% Vial) 5 ml STK-MED ONCE 05/08/17 11:04 05/08/17 11:05 DC Lidocaine/ Epinephrine (Xylocaine 1%-Epi 1:100,000) 20 ml 1X ONCE 05/12/17 13:15 05/12/17 13:25 DC 05/12/17 13:33 7 ML Lidocaine/Sodium Bicarbonate (Buffered Lidocaine 1%) 20 ml 1X ONCE 05/15/17 13:45 05/15/17 13:50 DC 05/15/17 14:21 4 ML Losartan Potassium (Cozaar) 50 mg DAILY 05/09/17 14:30 05/17/17 08:26 50 MG Metoprolol Tartrate (Lopressor) 25 mg BID 05/08/17 09:00 05/17/17 21:45 25 MG Metronidazole (Flagyl) 500 mg Q12HR 05/10/17 09:00 05/17/17 21:44 500 MG Midazolam HCl (Versed) 2 mg 1X ONCE 05/15/17 13:45 05/15/17 13:50 DC 05/15/17 14:22 1 MG Midodrine (Proamatine) 2.5 mg [id number] 05/08/17 08:00 05/17/17 06:10 2.5 MG Morphine Sulfate 1 mg PRN Q10MIN PRN 05/08/17 10:45 05/09/17 10:44 DC Non-Formulary Medication 20 unit PRN DAILY PRN 05/08/17 07:30 05/08/17 11:09 DC Ondansetron HCl (Zofran) 4 mg STK-MED ONCE 05/08/17 11:04 05/08/17 11:05 DC Piperacillin Sod/ Tazobactam Sod (Zosyn Per Pharmacy) 1 each PRN DAILY PRN 05/07/17 12:45 05/10/17 13:33 DC Piperacillin Sod/ Tazobactam Sod 3.375 gm/Sodium Chloride 50 ml @ 100 mls/hr Q6HRS 05/07/17 18:00 05/10/17 08:21 DC 05/10/17 05:30 100 MLS/HR Prochlorperazine Edisylate (Compazine) 5 mg PACU PRN PRN 05/08/17 10:45 05/09/17 10:44 DC Propofol 50 ml @ As Directed STK-MED ONCE 05/08/17 11:52 05/08/17 11:53 DC Ringer's Solution 1,000 ml @ 30 mls/hr Q24H 05/08/17 10:42 05/08/17 22:41 DC Sodium Chloride 1,000 ml @ 100 mls/hr 1X ONCE 05/07/17 12:45 05/07/17 22:44 DC 05/07/17 16:25 100 MLS/HR Tamsulosin HCl (Flomax) 0.4 mg DAILY 05/08/17 09:00 05/17/17 08:25 0.4 MG Vancomycin HCl (Vanco Per Pharmacy) 1 each PRN DAILY PRN 05/07/17 12:45 05/17/17 11:31 1 EACH Vancomycin HCl 1.25 gm/Sodium Chloride 250 ml @ 167 mls/hr Q18H 05/16/17 09:00 05/17/17 21:45 167 MLS/HR Vancomycin HCl 1.5 gm/Sodium Chloride 500 ml @ 250 mls/hr Q18H 05/09/17 14:00 05/16/17 08:22 DC 05/15/17 15:16 250 MLS/HR Vancomycin HCl 1.75 gm/Sodium Chloride 500 ml @ 250 mls/hr 1X ONCE 05/07/17 13:00 05/07/17 14:59 DC 05/07/17 13:48 250 MLS/HR LAB Lab: Laboratory Tests Test 05/17/17 11:23 05/17/17 16:44 05/17/17 21:01 05/18/17 07:23 Glucose (Fingerstick) 417 mg/dL (70-99) 192 mg/dL (70-99) 257 mg/dL (70-99) 107 mg/dL (70-99) LUISITO RUSSELL MD May 18, 2017 08:22
[2017-05-18] MEDS: VANCOMYCIN 250 MG/5 ML ORAL SOLUTION. PO SCH ×3 (09:34→16:25)
[2017-05-18] MEDS: GLIMEPIRIDE 2 MG TABLET. PO SCH (09:34)
[2017-05-18] MEDS: DULoxetine HCL 30 MG CAPSULE.DR PO SCH (09:34)
[2017-05-18] MEDS: CELECOXIB 200 MG CAPSULE. PO SCH (09:34)
[2017-05-18] MEDS: TAMSULOSIN 0.4 MG CAP.ER.24H. PO SCH (09:34)
[2017-05-18] MEDS: metroNIDAZOLE 500 MG TABLET PO SCH (09:35)
[2017-05-18] MEDS: METOPROLOL TART IMMED RELEASE 25 MG TABLET. PO SCH (09:35)
[2017-05-18] MEDS: LOSARTAN POTASSIUM 50 MG TABLET. PO SCH (09:36)
[2017-05-18 11:13] VITALS: BP 145/79
[2017-05-18] MEDS: VANCOMYCIN PER PHARMACY MC PRN (12:23)
[2017-05-18] MEDS: VANCOMYCIN 1.25 GM in IV NORMAL SALINE 250ML 250 ML IV SCH (15:01)
[2017-05-18 15:22] VITALS: BP 91/66
[2017-05-18 16:57] VITALS: BP 91/66
== END 2017-05-18 18:53 | DRG 853 ==
LOC: ER 11:08 → 4 NORTH 12:36 → OBSVTOIN 05-08 08:30
PROVIDERS: ADMIT Family Medicine; ATTEND Family Medicine
PROC: 0KBV0ZZ Excision of Right Foot Muscle, Open Approach (ICD-10-PCS; 2017-05-08)
PROC: 02HV33Z Insertion of Infusion Device into Superior Vena Cava, Percutaneous Approach (ICD-10-PCS; principal; 2017-05-12)
PROC: B548ZZA Ultrasonography of Superior Vena Cava, Guidance (ICD-10-PCS; 2017-05-12)
PROC: B5181ZA Fluoroscopy of Superior Vena Cava using Low Osmolar Contrast, Guidance (ICD-10-PCS; 2017-05-12)
PROC: B4101ZZ Fluoroscopy of Abdominal Aorta using Low Osmolar Contrast (ICD-10-PCS; 2017-05-14)
DX: A41.9 Sepsis, unspecified organism (principal); G92 Toxic encephalopathy; T83.518A Infection and inflammatory reaction due to other urinary catheter, initial encounter; M86.9 Osteomyelitis, unspecified; N39.0 Urinary tract infection, site not specified; E78.5 Hyperlipidemia, unspecified; I10 Essential (primary) hypertension; I25.10 Atherosclerotic heart disease of native coronary artery without angina pectoris; N40.0 Benign prostatic hyperplasia without lower urinary tract symptoms; E11.51 Type 2 diabetes mellitus with diabetic peripheral angiopathy without gangrene; F32.9 Major depressive disorder, single episode, unspecified; B96.4 Proteus (mirabilis) (morganii) as the cause of diseases classified elsewhere; B95.8 Unspecified staphylococcus as the cause of diseases classified elsewhere; F41.9 Anxiety disorder, unspecified; M19.90 Unspecified osteoarthritis, unspecified site; R41.0 Disorientation, unspecified; L97.519 Non-pressure chronic ulcer of other part of right foot with unspecified severity; E11.628 Type 2 diabetes mellitus with other skin complications; E11.621 Type 2 diabetes mellitus with foot ulcer; Y84.6 Urinary catheterization as the cause of abnormal reaction of the patient, or of later complication, without mention of misadventure at the time of the procedure; B96.89 Other specified bacterial agents as the cause of diseases classified elsewhere; Z88.7 Allergy status to serum and vaccine; Z82.49 Family history of ischemic heart disease and other diseases of the circulatory system; Z83.3 Family history of diabetes mellitus
CPT/HCPCS: 36247; 36415; 36558; 51702; 71010; 73720; 75625; 75710; 76937; 77001; 80048; 80076; 80202; 81001; 82962; 83605; 83690; 83880; 84484; 85027; 85610; 87040; 87071; 87075; 87086; 87186; 87205; 87324; 93005; 96365; 96368; 99152; 99153; A6539; A9585; C1751; C1760; C1769; C1892; C1894; G0269; G0378; G0379; J0696; J1644; J1815; J2001; J2250; J2405; J2543; J2704; J3010; J3370; J3490; J7030; J7040; J7042; J7050; Q9967; S0028; 97110; 97116; 97530; 99285-25

== ENCOUNTER → 2017-05-07 | Outpatient (CLI) | payer MEDICARE, BC ==
[2017-05-07] MEDS: GADOBUTROL 7.5 MMOL/7.5 ML VIAL IV ONE (10:41)
--- NOTE | 2017-05-07 11:35 | RAD ---
MR of the right forefoot with and without contrast HISTORY: Open ulcer under right first MTP joint. Noticed 2 months ago. History of debridement. TECHNIQUE: Routine multiplanar sequences before and after intravenous contrast. FINDINGS: Moderate motion degradation. Diffuse abnormal marrow signal with edema and enhancement throughout the shaft and head of the first metatarsal. There is loss of fatty marrow signal, particularly within the first metatarsal head, compatible with osteomyelitis. Similar abnormal marrow changes are seen within the proximal first phalanx, greater at its proximal aspect, also compatible with osteomyelitis. There is a plantar foot ulcer, located plantar to the first metatarsal head. The ulcer channel extends to the subchondral aspect of the first metatarsal head. Surrounding soft tissue edema and enhancement. The ulcer channel itself measures about 7 mm wide. No separate soft tissue abscess or drainable fluid collection is identified. No other definite area of bone destruction is identified. Small first metatarsophalangeal joint effusion, communicates with the ulcer channel and is presumed infected. Generalized soft tissue edema or cellulitis. Generalized muscle atrophy and abnormal signal with enhancement. Flexor pollicis tendon is poorly visualized at the level of the first metatarsophalangeal joint. IMPRESSION: 1. Findings are compatible with osteomyelitis of the distal first metatarsal and proximal first phalanx. 2. There is a soft tissue ulcer plantar to the first metatarsal head which communicates with a first metatarsophalangeal joint effusion, which is presumed infected (septic joint). 3. Generalized cellulitis/myositis. No evidence of organized abscess. Electronically signed by: Oscar Alcazra MD (05/07/2017 11:32 AM) [facility]
== END | disposition home or self-care (01) ==
LOC: MRI 09:25
PROVIDERS: ATTEND Emergency Medicine Undersea and Hyperbaric Medicine
DX: S91.301A Unspecified open wound, right foot, initial encounter (principal); M00.872 Arthritis due to other bacteria, left ankle and foot; M86.8X7 Other osteomyelitis, ankle and foot; X58.XXXA Exposure to other specified factors, initial encounter; Y93.89 Activity, other specified; Y92.89 Other specified places as the place of occurrence of the external cause; Y99.8 Other external cause status
CPT/HCPCS: 73720; 82962; A9585

== ENCOUNTER 2017-09-12 12:40 | Inpatient (IN) | payer MEDICARE, BC ==
[~2017-09-12] VITALS: Ht 175.3 cm; Wt 68.9 kg
[2017-09-12 13:14] LABS: BASO % 0 % (0-3); EOS % 2 % (0-3); HEMOGLOBIN 12.5 g/dL (13.0-17.5); LYMPH # 1.1 x10^3/uL (1.0-4.8); LYMPH % 10 % (24-48); MEAN CORPUSCULAR HEMOGLOBIN 28 pg (25-35); MEAN CORPUSCULAR HGB CONC 33 g/dL (31-37); MEAN CORPUSCULAR VOLUME 85 fL (79-100); MONO % 9 % (0-9); NEUT % 79 % (31-73); PLATELET COUNT 171 x10^3/uL (140-400); RED BLOOD COUNT 4.45 x10^6/uL (4.30-5.70); RED CELL DISTRIBUTION WIDTH 13.8 % (11.5-14.5); WHITE BLOOD COUNT 11.1 x10^3/uL (4.0-11.0)
[2017-09-12 13:16] LABS: CALCIUM 9.2 mg/dL (8.5-10.1); CREATININE 1.4 mg/dL (0.7-1.3); GFR 48.8; POTASSIUM 3.8 mmol/L (3.5-5.1)
[2017-09-12 13:22] LABS: ALBUMIN/GLOBULIN RATIO 0.6 (1.0-1.7); MAGNESIUM 1.7 mg/dL (1.8-2.4); TOTAL BILIRUBIN 1.1 mg/dL (0.2-1.0)
[2017-09-12 13:25] LABS: INR 1.4 (0.8-1.1); PROTHROMBIN TIME PATIENT 16.1 SEC (11.7-14.0)
[2017-09-12 13:27] LABS: BILIRUBIN,URINE MODERATE (NEG); GLUCOSE,URINE >=1000 mg/dL (NEG); NITRITE,URINE NEGATIVE (NEG); PROTEIN,URINE 100 mg/dL (NEG-TRACE)
[2017-09-12 13:30] LABS: CKMB MASS 1.3 ng/mL (0.0-3.6)
[2017-09-12] MEDS ORDERED: IV NORMAL SALINE 1000ML BAG 1,000 ML IV ONE (13:30)
[2017-09-12 13:40] LABS: BACTERIA,URINE MANY /HPF (0-FEW)
--- NOTE | 2017-09-12 13:42 | RAD ---
EXAM: Chest, single view. HISTORY: Weakness. COMPARISON: 05/07/2017. FINDINGS: A frontal view of the chest is obtained. There is no infiltrate, effusion or pneumothorax. The heart is normal in size. IMPRESSION: No acute pulmonary finding.
[2017-09-12] MEDS: NYSTATIN TOPICAL POWDER 15GM BOTTLE. TP SCH ×2 (13:48→22:32)
[2017-09-12] MEDS: NYSTATIN 100,000 UNIT/GM TOPICAL CREAM 15GM TUBE. TP SCH ×2 (13:49→22:32)
--- NOTE | 2017-09-12 14:41 | PHYS DOC ---
Past Medical History Past Medical History: Dementia, Diabetes-Type II, Hypertension, MRSA, Prostatitis, URI, UTI, Other Additional Past Medical Histor: enlarged prostate Past Surgical History: Other Additional Past Surgical Histo: R eye sx Alcohol Use: None Drug Use: None Adult General Chief Complaint Chief Complaint: ALTERED MENTAL STATUS HPI HPI Patient is a 81 year old male brought to the ED by family members with the complaint of altered/confused for 1-2 days. Patient lives at home with family. He does have an indwelling Marley and they state that they recently saw the urologist at who was talking about possibly putting in a suprapubic. He also has a right foot diabetic foot ulcer that has been being cared for and they believe is improving. Recently they have noted some episodes of weakness that sounds generalized. Yesterday and today he has been somewhat confused, not acting right, not talking like he usually does. "Usually he can carry on a conversation". Patient had been hospitalized for osteomyelitis a few months ago as well as UTI , he had recovered well from that and was back at home. The patient is alert and cooperative but he does not really carry on a conversation. He was able to say that he has a headache but not a lot of other specific contribution. History was mostly from family members who accompanied him. PCP Dr. Prater Review of Systems Review of Systems Review of systems limited by the fact that the patient has altered mental status Constitutional: Family Denies fever or chills to their knowledge Endocrine: Family states his blood sugars have been running high All other systems were reviewed and found to be within normal limits, except as documented in this note. Current Medications Current Medications Current Medications Medications (Trade) Dose Ordered Sig/Chay Start Time Stop Time Status Last Admin Dose Admin Nystatin (Mycostatin) 1 kimberly BID 09/12/17 13:30 09/12/17 13:49 1 KIMBERLY Nystatin (Nystop) 1 kimberly BID 09/12/17 13:00 09/12/17 13:48 1 KIMBERLY Sodium Chloride 1,000 ml @ 1,000 mls/hr 1X ONCE 09/12/17 13:30 09/12/17 14:29 DC 09/12/17 13:36 1,000 MLS/HR Allergies Allergies Allergies Coded Allergies Type Severity Reaction Last Updated Verified Influenza Virus Vaccines Allergy Intermediate 05/09/17 Yes I S O L A T I O N *CONTACT* Allergy Unknown 05/12/17 Yes Physical Exam Physical Exam Constitutional: Well developed, well nourished, no acute distress, non-toxic appearance. Alert, he is a little vague, vital signs stable, warm and dry, axillary temp 98.7. HENT: Normocephalic, atraumatic, bilateral external ears normal, nose normal. [ ] Eyes: conjunctiva normal, no discharge. [] Neck: Normal range of motion, no stridor. [] Cardiovascular:Heart rate regular rhythm, no murmur [] Lungs & Thorax: Bilateral breath sounds clear to auscultation [] Abdomen: Bowel sounds normal, soft, no tenderness, no masses, no pulsatile masses. : An indwelling Marley catheter is present. There is purulent discharge present from the urethra. The urethra exhibits erosion on the glans due to the indwelling Marley. There is also erosion of the urethra on the underside of the penis, where the Marley is visible through the skin. The glans and distal penis are reddened and swollen with an appearance consistent with cellulitis. There is some skin breakdown on the penis and the scrotum. Skin: Warm, dry, no erythema, no rash. [] Extremities: No tenderness, no cyanosis, no clubbing, ROM intact, no edema. Left foot without evidence of ulceration or other abnormality. Right foot: There is a bandage on the plantar aspect approximately the MTP. The bandage was removed and there is a very small foot ulcer that has had a very small amount of drainage. There is no evidence of surrounding cellulitis. It appears to be a healing diabetic foot ulcer without complication at this time. Neurologic: Alert and oriented but he is a little slow, seems to be global/toxic /metabolic type of mentation, normal symmetric motor function, no focal deficits noted. No facial assymmetry noted. He does not have an aphasia- type of speech disturbance. Current Patient Data Vital Signs Vital Signs Date Time Temp Pulse Resp B/P (MAP) Pulse Ox O2 Delivery O2 Flow Rate FiO2 09/12/17 13:34 88 96 09/12/17 13:04 18 09/12/17 12:42 98.2 110/54 (72) Room Air 98.2 Lab Values Laboratory Tests Test 09/12/17 12:55 09/12/17 13:20 White Blood Count 11.1 x10^3/uL (4.0-11.0) H Red Blood Count 4.45 x10^6/uL (4.30-5.70) Hemoglobin 12.5 g/dL (13.0-17.5) L Hematocrit 38.0 % (39.0-53.0) L Mean Corpuscular Volume 85 fL (79-100) Mean Corpuscular Hemoglobin 28 pg (25-35) Mean Corpuscular Hemoglobin Concent 33 g/dL (31-37) Red Cell Distribution Width 13.8 % (11.5-14.5) Platelet Count 171 x10^3/uL (140-400) Neutrophils (%) (Auto) 79 % (31-73) H Lymphocytes (%) (Auto) 10 % (24-48) L Monocytes (%) (Auto) 9 % (0-9) Eosinophils (%) (Auto) 2 % (0-3) Basophils (%) (Auto) 0 % (0-3) Neutrophils # (Auto) 8.8 x10^3uL (1.8-7.7) H Lymphocytes # (Auto) 1.1 x10^3/uL (1.0-4.8) Monocytes # (Auto) 1.0 x10^3/uL (0.0-1.1) Eosinophils # (Auto) 0.2 x10^3/uL (0.0-0.7) Basophils # (Auto) 0.0 x10^3/uL (0.0-0.2) Prothrombin Time 16.1 SEC (11.7-14.0) H Prothrombin Time INR 1.4 (0.8-1.1) H PTT 33 SEC (24-38) Sodium Level 138 mmol/L (136-145) Potassium Level 3.8 mmol/L (3.5-5.1) Chloride Level 97 mmol/L (98-107) L Carbon Dioxide Level 31 mmol/L (21-32) Anion Gap 10 (6-14) Blood Urea Nitrogen 22 mg/dL (8-26) Creatinine 1.4 mg/dL (0.7-1.3) H Estimated GFR (Cockcroft-Gault) 48.8 BUN/Creatinine Ratio 16 (6-20) Glucose Level 415 mg/dL (70-99) H Calcium Level 9.2 mg/dL (8.5-10.1) Magnesium Level 1.7 mg/dL (1.8-2.4) L Total Bilirubin 1.1 mg/dL (0.2-1.0) H Aspartate Amino Transferase (AST) 18 U/L (15-37) Alanine Aminotransferase (ALT) 15 U/L (16-63) L Alkaline Phosphatase 137 U/L (46-116) H Creatine Kinase 145 U/L (39-308) Creatine Kinase MB (Mass) 1.3 ng/mL (0.0-3.6) Creatine Kinase MB Relative Index 0.9 % (0-4) Troponin I Quantitative 0.071 ng/mL (0.000-0.055) QH-Puw-Z-Type Natriuretic Peptide 913 pg/mL (0-449) H Total Protein 8.0 g/dL (6.4-8.2) Albumin 3.0 g/dL (3.4-5.0) L Albumin/Globulin Ratio 0.6 (1.0-1.7) L Urine Collection Type Unknown Urine Color Hillary Urine Clarity Cloudy Urine pH 6.0 Urine Specific [place] 1.025 Urine Protein 100 mg/dL (NEG-TRACE) Urine Glucose (UA) >=1000 mg/dL (NEG) Urine Ketones (Stick) Trace mg/dL (NEG) Urine Blood Small (NEG) Urine Nitrite Negative (NEG) Urine Bilirubin Moderate (NEG) Urine Urobilinogen Dipstick 1.0 mg/dL (0.2 mg/dL) Urine Leukocyte Esterase Moderate (NEG) Urine RBC 1-2 /HPF (0-2) Urine WBC 11-20 /HPF (0-4) Urine Bacteria Many /HPF (0-FEW) Urine Hyaline Casts Moderate /HPF Urine Mucus Mod /LPF Laboratory Tests 09/12/17 12:55 Laboratory Tests 09/12/17 12:55 EKG EKG [] Radiology/Procedures Radiology/Procedures One view portable chest x-ray read by the radiologist. No acute infiltrate.[] Course & Med Decision Making Course & Med Decision Making Pertinent Labs and Imaging studies reviewed. (See chart for details) 81-year-old male with a history of UTI, indwelling Marley due to urinary retention, history of osteomyelitis from a diabetic foot ulcer, brought by family members with confusion and altered mental status for about 1-2 days. He is right foot diabetic foot ulcer does not appear to be the source. He does have bacteria and leukocytes in his urine. Culture was ordered. His blood sugar is high and he is dehydrated. ED nursing staff discovered significant issues with his Marley with some urethral erosion, purulent discharge around the Marley, and what appears to be cellulitis of the penis and scrotum area. It is primarily the penis and does not appear to be significant scrotal cellulitis and certainly not scrotal gangrene. The patient was given IV fluids for dehydration and hyperglycemia. Cultures were ordered. Patient was given IV antibiotics. I believe the patient's altered mental status is consistent with a toxic/metabolic type of alteration and does not appear to be focal. I don't believe he presents with acute CVA. He has symmetrical strength and there was certainly no history of an acute onset of a focal neurologic deficit. Patient needs to be hospitalized for IV antibiotics, IV fluids, treatment of hyperglycemia. Pt And his family are agreeable to that. I spoke with Dr. Prater who will admit the patient. I wrote bridge orders. [] Dragon Disclaimer Dragon Disclaimer This electronic medical record was generated, in whole or in part, using a voice recognition dictation system. Departure Departure Impression: Primary Impression: Altered mental status Additional Impressions: Urinary tract infection Urethral erosion by catheter Hyperglycemia Dehydration Diabetic foot ulcer Disposition: ADMITTED INPATIENT Admitting Physician: Luisito Prater Condition: STABLE Referrals: LUISITO PRATER MD (PCP) Problem Qualifiers DEREK RAZA MD Sep 12, 2017 14:41
[2017-09-12] MEDS ORDERED: PIP/TAZO PER PHARMACY MC PRN (14:45)
[2017-09-12] MEDS ORDERED: ONDANSETRON PF 4 MG/2 ML VIAL. IV PRN (14:45)
[2017-09-12] MEDS ORDERED: FLUCONAZOLE 100 MG TABLET. PO ONE (15:00)
[2017-09-12] MEDS ORDERED: VANCOMYCIN 1.5 GM in IV DEXTROSE 5% 500 ML IV ONE (15:30)
[2017-09-12] MEDS ORDERED: DULA1.5P SQ (16:04)
[2017-09-12] MEDS ORDERED: INSU100V13 SQ (16:04)
[2017-09-12] MEDS: IV NORMAL SALINE 1000ML BAG 1,000 ML IV SCH (17:54)
[2017-09-12] MEDS: VANCOMYCIN PER PHARMACY MC PRN (18:20)
[2017-09-12 19:50] VITALS: BP 142/75
[2017-09-12] MEDS: METOPROLOL TART IMMED RELEASE 25 MG TABLET. PO SCH (21:00)
[2017-09-12] MEDS: CELECOXIB 200 MG CAPSULE. PO SCH (21:00)
[2017-09-12] MEDS: PIPERACILLIN/TAZO IV Push 3.375 GM VIAL. IVP SCH (21:00)
[2017-09-12] MEDS: ATORVASTATIN CALCIUM 10 MG TABLET. PO SCH (21:00)
[2017-09-12] MEDS: LACTOBACILLUS RHAMNOSUS GG 1 CAPSULE. PO SCH (21:00)
[2017-09-12] MEDS ORDERED: INSULIN DETEMIR 300 UNITS/3 ML INSULN.PEN. SQ SCH (21:00)
[2017-09-12] MEDS ORDERED: PNEUMOC CONJ VACC 23-VALENT 0.5 ML VIAL. VAX IM ONE (21:00)
[2017-09-12 23:19] VITALS: BP 105/53
[2017-09-13] MEDS: IV NORMAL SALINE 1000ML BAG 1,000 ML IV SCH ×2 (00:48→07:00)
[2017-09-13] MEDS: PIPERACILLIN/TAZO IV Push 3.375 GM VIAL. IVP SCH ×5 (00:48→23:50)
[2017-09-13 03:45] VITALS: BP 101/56
[2017-09-13 07:22] VITALS: BP 142/74
[2017-09-13] MEDS ORDERED: DEXTROSE 50% 25 GM / 50ML DISP.SYRIN. IV ONE ×2 (07:27→07:45)
[2017-09-13] MEDS: CELECOXIB 200 MG CAPSULE. PO SCH (08:51)
[2017-09-13] MEDS: METOPROLOL TART IMMED RELEASE 25 MG TABLET. PO SCH ×2 (08:51→21:10)
[2017-09-13] MEDS: LACTOBACILLUS RHAMNOSUS GG 1 CAPSULE. PO SCH ×2 (08:51→21:15)
[2017-09-13] MEDS: DULoxetine HCL 30 MG CAPSULE.DR PO SCH (08:51)
[2017-09-13] MEDS: NYSTATIN 100,000 UNIT/GM TOPICAL CREAM 15GM TUBE. TP SCH ×2 (09:00→21:11)
[2017-09-13] MEDS ORDERED: PNEUMOC CONJ VACC 23-VALENT 0.5 ML VIAL. VAX IM ONE (09:00)
[2017-09-13] MEDS ORDERED: GLIMEPIRIDE 2 MG TABLET. PO SCH (09:00)
[2017-09-13] MEDS: NYSTATIN TOPICAL POWDER 15GM BOTTLE. TP SCH ×2 (09:00→21:11)
[2017-09-13 11:27] VITALS: BP 141/82
[2017-09-13] MEDS ORDERED: DEXTROSE 50% 25 GM / 50ML DISP.SYRIN. IV PRN (11:45)
--- NOTE | 2017-09-13 11:50 | PDOC1 ---
History and Physical Date of Admission Date of Admission 09/12/17 Identification/Chief Complaint Chief Complaint change mental status Problems: Source Source: Chart review, Patient History of Present Illness History of Present Illness Patient is a 81 year old male brought to the ED by family members with the complaint of altered/confused for 1-2 days. Patient lives at home with family. He does have an indwelling Alcaraz and they state that they recently saw the urologist at who was talking about possibly putting in a suprapubic. He also has a right foot diabetic foot ulcer that has been being cared for and they believe is improving. Recently they have noted some episodes of weakness that sounds generalized. Yesterday and today he has been somewhat confused, not acting right, not talking like he usually does. "Usually he can carry on a conversation". Patient had been hospitalized for osteomyelitis a few months ago as well as UTI , he had recovered well from that and was back at home. Past Medical History Cardiovascular: CAD, HTN, Hyperlipidemia CENTRAL NERVOUS SYSTEM: Dementia Psych: Anxiety, Depression Rheumatologic: Other (DJD) Infectious disease: Other (C.Diff , MRSA) Renal/: UTI, Benign prostatic enlarg., Hematuria, Other (prostatitis) Endocrine: Diabetes Past Surgical History Past Surgical History: Tonsillectomy, Other Family History Family History: Diabetes, Hypertension, Other Social History Smoke: No ALCOHOL: none Drugs: None Current Problem List Problem List Problems Medical Problems: (1) Altered mental status Status: Acute (2) Dehydration Status: Acute (3) Diabetic foot ulcer Status: Acute (4) Urethral erosion by catheter Status: Acute (5) Urinary tract infection Status: Acute Current Medications Current Medications Current Medications Medications (Trade) Dose Ordered Sig/Chay Start Time Stop Time Status Last Admin Dose Admin Atorvastatin Calcium (Lipitor) 10 mg QHS 09/12/17 21:00 09/12/17 21:00 10 MG Celecoxib (CeleBREX) 200 mg BID 09/12/17 21:00 09/13/17 11:16 DC 09/13/17 08:51 200 MG Dextrose (Dextrose 50%-Water Syringe) 25 gm 1X ONCE 09/13/17 07:45 09/13/17 07:46 DC 09/13/17 07:39 25 GM Duloxetine HCl (Cymbalta) 60 mg DAILY 09/13/17 09:00 09/13/17 08:51 60 MG Fluconazole (Diflucan) 100 mg 1X ONCE 09/12/17 15:00 09/12/17 15:01 DC 09/12/17 17:55 100 MG Glimepiride (Amaryl) 4 mg DAILY 09/13/17 09:00 09/13/17 11:16 DC 09/13/17 08:51 4 MG Insulin Detemir (Levemir) 60 units QHS 09/12/17 21:00 09/12/17 21:10 60 UNITS Lactobacillus Rhamnosus (Culturelle) 1 cap BID 09/12/17 21:00 09/13/17 08:51 1 CAP Metoprolol Tartrate (Lopressor) 25 mg BID 09/12/17 21:00 09/13/17 08:51 25 MG Nystatin (Mycostatin) 1 kimberly BID 09/12/17 13:30 09/13/17 09:00 1 KIMBERLY Nystatin (Nystop) 1 kimberly BID 09/12/17 13:00 09/13/17 09:00 1 KIMBERLY Ondansetron HCl (Zofran) 4 mg PRN Q8HRS PRN 09/12/17 14:45 09/13/17 11:16 DC Piperacillin Sod/ Tazobactam Sod (Zosyn Per Pharmacy) 1 each PRN DAILY PRN 09/12/17 14:45 Piperacillin Sod/ Tazobactam Sod (Zosyn) 3.375 gm Q6HRS 09/12/17 18:00 09/13/17 06:18 3.375 GM Pneumococcal Polyvalent Vaccine (Pneumovax 23) 0.5 ml ONCE ONCE 09/13/17 09:00 09/13/17 09:01 DC 09/13/17 08:54 0.5 ML Sodium Chloride 1,000 ml @ 125 mls/hr Q8H 09/12/17 15:00 09/13/17 11:16 DC 09/13/17 07:00 125 MLS/HR Vancomycin HCl 1 each 1X ONCE 09/14/17 05:30 09/14/17 05:31 Vancomycin HCl (Vanco Per Pharmacy) 1 each PRN DAILY PRN 09/12/17 14:45 09/12/17 18:20 1 EACH Vancomycin HCl 1.25 gm/Dextrose 250 ml @ 167 mls/hr Q18H 09/13/17 12:00 Vancomycin HCl 1.5 gm/Dextrose 500 ml @ 250 mls/hr 1X ONCE 09/12/17 15:30 09/12/17 17:29 DC 09/12/17 17:55 250 MLS/HR Allergies Allergies Allergies Coded Allergies Type Severity Reaction Last Updated Verified Influenza Virus Vaccines Allergy Intermediate 05/09/17 Yes I S O L A T I O N *CONTACT* Allergy Unknown 05/12/17 Yes ROS Review of System CONSTITUTIONAL: No fever or chills EYES: No recent changes SKIN: No rash or itching CARDIOVASCULAR: No chest pain, syncope, palpitations, or edema RESPIRATORY: No SOB or cough GASTROINTESTINAL: No nausea, vomiting or abdominal pain NEUROLOGICAL: No headaches + weakness mostly generalized and fatigue with increase confusion ENDOCRINE: No cold or heat intolerance GENITOURINARY: has alcaraz catheter MUSCULOSKELETAL: has arthritis pain LYMPHATICS: No enlarged lymph nodes PSYCHIATRIC: + depression Physical Exam Physical Exam GEN.: No apparent distress. was not oriented to place or time today HEENT: Head is normocephalic, atraumatic NECK: Supple. LUNGS: Clear to auscultation. HEART: RRR, S1, S2 present. Peripheral pulses intact ABDOMEN: Soft, nontender. Positive bowel sounds. EXTREMITIES: Without any cyanosis.uler left foot on top NEUROLOGIC: slower than usual follow command but not carrying on conversation , no focal weakness PSYCHIATRIC: depressed SKIN: diabetic foot ulcer ,R foot, and ulcer genital area seems due to alcaraz catheter Vitals Vitals Vital Signs Date Time Temp Pulse Resp B/P (MAP) Pulse Ox O2 Delivery O2 Flow Rate FiO2 09/13/17 11:27 98.4 55 18 141/82 (101) 99 Room Air 98.4 Labs Labs Laboratory Tests Test 09/12/17 12:55 09/12/17 13:20 09/12/17 18:49 09/12/17 19:50 White Blood Count 11.1 x10^3/uL (4.0-11.0) Red Blood Count 4.45 x10^6/uL (4.30-5.70) Hemoglobin 12.5 g/dL (13.0-17.5) Hematocrit 38.0 % (39.0-53.0) Mean Corpuscular Volume 85 fL (79-100) Mean Corpuscular Hemoglobin 28 pg (25-35) Mean Corpuscular Hemoglobin Concent 33 g/dL (31-37) Red Cell Distribution Width 13.8 % (11.5-14.5) Platelet Count 171 x10^3/uL (140-400) Neutrophils (%) (Auto) 79 % (31-73) Lymphocytes (%) (Auto) 10 % (24-48) Monocytes (%) (Auto) 9 % (0-9) Eosinophils (%) (Auto) 2 % (0-3) Basophils (%) (Auto) 0 % (0-3) Neutrophils # (Auto) 8.8 x10^3uL (1.8-7.7) Lymphocytes # (Auto) 1.1 x10^3/uL (1.0-4.8) Monocytes # (Auto) 1.0 x10^3/uL (0.0-1.1) Eosinophils # (Auto) 0.2 x10^3/uL (0.0-0.7) Basophils # (Auto) 0.0 x10^3/uL (0.0-0.2) Prothrombin Time 16.1 SEC (11.7-14.0) Prothromb Time International Ratio 1.4 (0.8-1.1) Activated Partial Thromboplast Time 33 SEC (24-38) Sodium Level 138 mmol/L (136-145) Potassium Level 3.8 mmol/L (3.5-5.1) Chloride Level 97 mmol/L (98-107) Carbon Dioxide Level 31 mmol/L (21-32) Anion Gap 10 (6-14) Blood Urea Nitrogen 22 mg/dL (8-26) Creatinine 1.4 mg/dL (0.7-1.3) Estimated GFR (Cockcroft-Gault) 48.8 BUN/Creatinine Ratio 16 (6-20) Glucose Level 415 mg/dL (70-99) Calcium Level 9.2 mg/dL (8.5-10.1) Magnesium Level 1.7 mg/dL (1.8-2.4) Total Bilirubin 1.1 mg/dL (0.2-1.0) Aspartate Amino Transf (AST/SGOT) 18 U/L (15-37) Alanine Aminotransferase (ALT/SGPT) 15 U/L (16-63) Alkaline Phosphatase 137 U/L (46-116) Creatine Kinase 145 U/L (39-308) Creatine Kinase MB (Mass) 1.3 ng/mL (0.0-3.6) Creatine Kinase MB Relative Index 0.9 % (0-4) Troponin I Quantitative 0.071 ng/mL (0.000-0.055) 0.059 ng/mL (0.000-0.055) LO-Wmr-D-Type Natriuretic Peptide 913 pg/mL (0-449) Total Protein 8.0 g/dL (6.4-8.2) Albumin 3.0 g/dL (3.4-5.0) Albumin/Globulin Ratio 0.6 (1.0-1.7) Urine Collection Type Unknown Urine Color Hillary Urine Clarity Cloudy Urine pH 6.0 Urine Specific [place] 1.025 Urine Protein 100 mg/dL (NEG-TRACE) Urine Glucose (UA) >=1000 mg/dL (NEG) Urine Ketones (Stick) Trace mg/dL (NEG) Urine Blood Small (NEG) Urine Nitrite Negative (NEG) Urine Bilirubin Moderate (NEG) Urine Urobilinogen Dipstick 1.0 mg/dL (0.2 mg/dL) Urine Leukocyte Esterase Moderate (NEG) Urine RBC 1-2 /HPF (0-2) Urine WBC 11-20 /HPF (0-4) Urine Bacteria Many /HPF (0-FEW) Urine Hyaline Casts Moderate /HPF Urine Mucus Mod /LPF Glucose (Fingerstick) 334 mg/dL (70-99) Test 09/12/17 21:00 09/13/17 03:00 09/13/17 07:25 Glucose (Fingerstick) 318 mg/dL (70-99) 33 mg/dL (70-99) Troponin I Quantitative 0.060 ng/mL (0.000-0.055) Laboratory Tests Test 09/12/17 12:55 09/12/17 13:20 09/12/17 18:49 09/12/17 19:50 White Blood Count 11.1 x10^3/uL (4.0-11.0) Red Blood Count 4.45 x10^6/uL (4.30-5.70) Hemoglobin 12.5 g/dL (13.0-17.5) Hematocrit 38.0 % (39.0-53.0) Mean Corpuscular Volume 85 fL (79-100) Mean Corpuscular Hemoglobin 28 pg (25-35) Mean Corpuscular Hemoglobin Concent 33 g/dL (31-37) Red Cell Distribution Width 13.8 % (11.5-14.5) Platelet Count 171 x10^3/uL (140-400) Neutrophils (%) (Auto) 79 % (31-73) Lymphocytes (%) (Auto) 10 % (24-48) Monocytes (%) (Auto) 9 % (0-9) Eosinophils (%) (Auto) 2 % (0-3) Basophils (%) (Auto) 0 % (0-3) Neutrophils # (Auto) 8.8 x10^3uL (1.8-7.7) Lymphocytes # (Auto) 1.1 x10^3/uL (1.0-4.8) Monocytes # (Auto) 1.0 x10^3/uL (0.0-1.1) Eosinophils # (Auto) 0.2 x10^3/uL (0.0-0.7) Basophils # (Auto) 0.0 x10^3/uL (0.0-0.2) Prothrombin Time 16.1 SEC (11.7-14.0) Prothromb Time International Ratio 1.4 (0.8-1.1) Activated Partial Thromboplast Time 33 SEC (24-38) Sodium Level 138 mmol/L (136-145) Potassium Level 3.8 mmol/L (3.5-5.1) Chloride Level 97 mmol/L (98-107) Carbon Dioxide Level 31 mmol/L (21-32) Anion Gap 10 (6-14) Blood Urea Nitrogen 22 mg/dL (8-26) Creatinine 1.4 mg/dL (0.7-1.3) Estimated GFR (Cockcroft-Gault) 48.8 BUN/Creatinine Ratio 16 (6-20) Glucose Level 415 mg/dL (70-99) Calcium Level 9.2 mg/dL (8.5-10.1) Magnesium Level 1.7 mg/dL (1.8-2.4) Total Bilirubin 1.1 mg/dL (0.2-1.0) Aspartate Amino Transf (AST/SGOT) 18 U/L (15-37) Alanine Aminotransferase (ALT/SGPT) 15 U/L (16-63) Alkaline Phosphatase 137 U/L (46-116) Creatine Kinase 145 U/L (39-308) Creatine Kinase MB (Mass) 1.3 ng/mL (0.0-3.6) Creatine Kinase MB Relative Index 0.9 % (0-4) Troponin I Quantitative 0.071 ng/mL (0.000-0.055) 0.059 ng/mL (0.000-0.055) MI-Azd-V-Type Natriuretic Peptide 913 pg/mL (0-449) Total Protein 8.0 g/dL (6.4-8.2) Albumin 3.0 g/dL (3.4-5.0) Albumin/Globulin Ratio 0.6 (1.0-1.7) Urine Collection Type Unknown Urine Color Hillary Urine Clarity Cloudy Urine pH 6.0 Urine Specific [place] 1.025 Urine Protein 100 mg/dL (NEG-TRACE) Urine Glucose (UA) >=1000 mg/dL (NEG) Urine Ketones (Stick) Trace mg/dL (NEG) Urine Blood Small (NEG) Urine Nitrite Negative (NEG) Urine Bilirubin Moderate (NEG) Urine Urobilinogen Dipstick 1.0 mg/dL (0.2 mg/dL) Urine Leukocyte Esterase Moderate (NEG) Urine RBC 1-2 /HPF (0-2) Urine WBC 11-20 /HPF (0-4) Urine Bacteria Many /HPF (0-FEW) Urine Hyaline Casts Moderate /HPF Urine Mucus Mod /LPF Glucose (Fingerstick) 334 mg/dL (70-99) Test 09/12/17 21:00 09/13/17 03:00 09/13/17 07:25 Glucose (Fingerstick) 318 mg/dL (70-99) 33 mg/dL (70-99) Troponin I Quantitative 0.060 ng/mL (0.000-0.055) VTE Prophylaxis Ordered VTE Prophylaxis Devices: Yes VTE Pharmacological Prophylaxi: Yes Assessment/Plan Assessment/Plan 1-Metabolic encephalopathy 2-Hypoglycemia: stop Amaryl and decrease Levemir 3-diabetic foot infection , 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 Appl will rsume care in AM ARTEMIO BRICENO MD Sep 13, 2017 11:50
[2017-09-13] MEDS: INSULIN ASPART 300 UNITS/3 ML INSULN.PEN SQ SCH ×2 (12:00→16:52)
[2017-09-13] MEDS: VANCOMYCIN 1.25 GM in IV DEXTROSE 5% 250 ML IV SCH (12:45)
[2017-09-13] MEDS: VANCOMYCIN PER PHARMACY MC PRN (12:52)
[2017-09-13] MEDS: POTASSIUM CL 20MEQ-0.45% NACL 1,000 ML IV SCH ×2 (13:05→23:51)
--- NOTE | 2017-09-13 13:13 | RAD ---
EXAM: Head CT without contrast. HISTORY: Mental status change. TECHNIQUE: Computed tomographic images of the head were obtained without contrast. COMPARISON: 09/12/2006. FINDINGS: There is no acute or subacute hemorrhage. There is no mass effect or midline shift. There is no hydrocephalus. There is stable ventricular enlargement due to cerebral atrophy. There is stable increased bifrontal extra-axial space likely due to cerebral atrophy. There are scattered areas of hypodensity within the cerebral white matter, likely due to chronic small vessel disease. There may be superimposed chronic infarct within the right frontal white matter. There is also suggestion of a chronic lacunar infarct within the right thalamus. There is paranasal sinus mucosal thickening. There is fluid within the right greater and left mastoid air cells. No calvarial lesion is seen. IMPRESSION: 1. No acute intracranial finding. Note is made that MRI is more sensitive for acute infarction. 2. Scattered areas of hypodensity within the cerebral white matter, likely due to chronic small disease. 3. 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 4. Cerebral atrophy. PQRS Compliance Statement: One or more of the following individualized dose reduction techniques were utilized for this examination: 1. Automated exposure control 2. Adjustment of the mA and/or kV according to patient size 3. Use of iterative reconstruction technique
[2017-09-13 15:40] VITALS: BP 170/84
[2017-09-13 19:48] VITALS: BP 101/51
[2017-09-13] MEDS ORDERED: INSULIN DETEMIR 300 UNITS/3 ML INSULN.PEN. SQ SCH (21:00)
[2017-09-13] MEDS ORDERED: ENOXAPARIN 30 MG/0.3 ML SYRINGE. SQ SCH (21:00)
[2017-09-13] MEDS: ATORVASTATIN CALCIUM 10 MG TABLET. PO SCH (21:10)
[2017-09-13 23:17] VITALS: BP 115/69
[2017-09-14] VITALS (8 sets, daily range): BP systolic 135–177; BP diastolic 67–82
[2017-09-14 06:07] LABS: HEMOGLOBIN 11.8 g/dL (13.0-17.5); RED BLOOD COUNT 4.22 x10^6/uL (4.30-5.70); RED CELL DISTRIBUTION WIDTH 13.6 % (11.5-14.5); WHITE BLOOD COUNT 7.9 x10^3/uL (4.0-11.0)
[2017-09-14] MEDS: PIPERACILLIN/TAZO IV Push 3.375 GM VIAL. IVP SCH ×4 (06:10→23:39)
[2017-09-14] MEDS: VANCOMYCIN 1.25 GM in IV DEXTROSE 5% 250 ML IV SCH ×2 (06:11→23:40)
[2017-09-14 06:35] LABS: ALBUMIN 2.2 g/dL (3.4-5.0); ALBUMIN/GLOBULIN RATIO 0.5 (1.0-1.7); CALCIUM 8.8 mg/dL (8.5-10.1); CREATININE 0.9 mg/dL (0.7-1.3); GFR 81.2; TOTAL BILIRUBIN 0.4 mg/dL (0.2-1.0); TOTAL PROTEIN 6.5 g/dL (6.4-8.2)
[2017-09-14 06:44] LABS: POTASSIUM 2.9 mmol/L (3.5-5.1)
[2017-09-14] MEDS: VANCOMYCIN PER PHARMACY MC PRN (06:49)
[2017-09-14] MEDS ORDERED: POTASSIUM CHLORIDE 20 MEQ TABLET.ER. PO ONE ×2 (07:15→14:00)
[2017-09-14] MEDS: INSULIN ASPART 300 UNITS/3 ML INSULN.PEN SQ SCH ×3 (08:00→18:10)
--- NOTE | 2017-09-14 08:40 | PDOC ---
GENERAL General: vss and afebrile. awake and alert. hypoglycemic this am and will decrease levemir dose accordingly. his diet is much more regulated here than he does at home despite his daughter's attempt to modulate same and will likely need less insulin while here. chest clear and heart regular. blood cultures negative to date and no results on urine culture to date. will continue antibiotics and start therapy. K+ 2.9 this am and replacement ordered for same. Problems: VITAL SIGNS Vital Signs: Vital Signs Date Time Temp Pulse Resp B/P (MAP) Pulse Ox O2 Delivery O2 Flow Rate FiO2 09/14/17 07:10 97.5 70 16 177/81 (113) 98 Room Air 97.5 I & O I & O Intake and Output 09/15/17 07:00 Output Total 900 ml Balance -900 ml Output Urine Total 900 ml ALLERGIES Allergies: Allergies Coded Allergies Type Severity Reaction Last Updated Verified Influenza Virus Vaccines Allergy Intermediate 05/09/17 Yes I S O L A T I O N *CONTACT* Allergy Unknown 05/12/17 Yes MEDS Medications: Current Medications Medications (Trade) Dose Ordered Sig/Chay Start Time Stop Time Status Last Admin Dose Admin Atorvastatin Calcium (Lipitor) 10 mg QHS 09/12/17 21:00 09/13/17 21:10 10 MG Celecoxib (CeleBREX) 200 mg BID 09/12/17 21:00 09/13/17 11:16 DC 09/13/17 08:51 200 MG Dextrose (Dextrose 50%-Water Syringe) 12.5 gm PRN Q15MIN PRN 09/13/17 11:45 Duloxetine HCl (Cymbalta) 60 mg DAILY 09/13/17 09:00 09/13/17 08:51 60 MG Enoxaparin Sodium (Lovenox 30mg Syringe) 30 mg Q24H 09/13/17 21:00 09/13/17 21:14 30 MG Fluconazole (Diflucan) 100 mg 1X ONCE 09/12/17 15:00 09/12/17 15:01 DC 09/12/17 17:55 100 MG Glimepiride (Amaryl) 4 mg DAILY 09/13/17 09:00 09/13/17 11:16 DC 09/13/17 08:51 4 MG Insulin Aspart (NovoLOG) 0-5 UNITS TIDWMEALS 09/13/17 12:00 Insulin Detemir (Levemir) 50 units QHS 09/13/17 21:00 Lactobacillus Rhamnosus (Culturelle) 1 cap BID 09/12/17 21:00 09/13/17 21:15 1 CAP Metoprolol Tartrate (Lopressor) 25 mg BID 09/12/17 21:00 09/13/17 21:10 25 MG Nystatin (Mycostatin) 1 kimberly BID 09/12/17 13:30 09/13/17 21:11 1 KIMBERLY Nystatin (Nystop) 1 kimberly BID 09/12/17 13:00 09/13/17 21:11 1 KIMBERLY Ondansetron HCl (Zofran) 4 mg PRN Q8HRS PRN 09/12/17 14:45 09/13/17 11:16 DC Piperacillin Sod/ Tazobactam Sod (Zosyn Per Pharmacy) 1 each PRN DAILY PRN 09/12/17 14:45 Piperacillin Sod/ Tazobactam Sod (Zosyn) 3.375 gm Q6HRS 09/12/17 18:00 09/14/17 06:10 3.375 GM Pneumococcal Polyvalent Vaccine (Pneumovax 23) 0.5 ml ONCE ONCE 09/13/17 09:00 09/13/17 09:01 DC 09/13/17 08:54 0.5 ML Potassium Chloride/Sodium Chloride 1,000 ml @ 100 mls/hr Q10H 09/13/17 13:00 09/13/17 23:51 100 MLS/HR Potassium Chloride (Klor-Con) 40 meq 1X ONCE 09/14/17 07:15 09/14/17 07:16 DC Sodium Chloride 1,000 ml @ 125 mls/hr Q8H 09/12/17 15:00 09/13/17 11:16 DC 09/13/17 07:00 125 MLS/HR Vancomycin HCl 1 each 1X ONCE 09/14/17 05:30 09/14/17 05:31 DC 09/14/17 05:30 1 EACH Vancomycin HCl (Vanco Per Pharmacy) 1 each PRN DAILY PRN 09/12/17 14:45 09/14/17 06:49 1 EACH Vancomycin HCl 1.25 gm/Dextrose 250 ml @ 167 mls/hr Q18H 09/13/17 12:00 09/14/17 06:11 167 MLS/HR Vancomycin HCl 1.5 gm/Dextrose 500 ml @ 250 mls/hr 1X ONCE 09/12/17 15:30 09/12/17 17:29 DC 09/12/17 17:55 250 MLS/HR LAB Lab: Laboratory Tests Test 09/13/17 11:43 09/13/17 21:12 09/14/17 05:35 09/14/17 07:23 Glucose (Fingerstick) 96 mg/dL (70-99) 107 mg/dL (70-99) 107 mg/dL (70-99) White Blood Count 7.9 x10^3/uL (4.0-11.0) Red Blood Count 4.22 x10^6/uL (4.30-5.70) Hemoglobin 11.8 g/dL (13.0-17.5) Hematocrit 36.0 % (39.0-53.0) Mean Corpuscular Volume 85 fL (79-100) Mean Corpuscular Hemoglobin 28 pg (25-35) Mean Corpuscular Hemoglobin Concent 33 g/dL (31-37) Red Cell Distribution Width 13.6 % (11.5-14.5) Platelet Count 144 x10^3/uL (140-400) Sodium Level 139 mmol/L (136-145) Potassium Level 2.9 mmol/L (3.5-5.1) Chloride Level 102 mmol/L (98-107) Carbon Dioxide Level 32 mmol/L (21-32) Anion Gap 5 (6-14) Blood Urea Nitrogen 17 mg/dL (8-26) Creatinine 0.9 mg/dL (0.7-1.3) Estimated GFR (Cockcroft-Gault) 81.2 BUN/Creatinine Ratio 19 (6-20) Glucose Level 64 mg/dL (70-99) Calcium Level 8.8 mg/dL (8.5-10.1) Total Bilirubin 0.4 mg/dL (0.2-1.0) Aspartate Amino Transf (AST/SGOT) 26 U/L (15-37) Alanine Aminotransferase (ALT/SGPT) 17 U/L (16-63) Alkaline Phosphatase 115 U/L (46-116) Total Protein 6.5 g/dL (6.4-8.2) Albumin 2.2 g/dL (3.4-5.0) Albumin/Globulin Ratio 0.5 (1.0-1.7) Vancomycin Level Trough 13.3 mcg/mL (10.0-20.0) Vancomycin Last Dose Date 09/13/17 Vancomycin Last Dose Time 1200 LUISITO RUSSELL MD Sep 14, 2017 08:40
[2017-09-14] MEDS: METOPROLOL TART IMMED RELEASE 25 MG TABLET. PO SCH ×2 (08:57→20:47)
[2017-09-14] MEDS: DULoxetine HCL 30 MG CAPSULE.DR PO SCH (08:57)
[2017-09-14] MEDS: LACTOBACILLUS RHAMNOSUS GG 1 CAPSULE. PO SCH ×2 (08:57→20:57)
[2017-09-14] MEDS: POTASSIUM CL 20MEQ-0.45% NACL 1,000 ML IV SCH ×2 (08:58→20:46)
[2017-09-14] MEDS: NYSTATIN 100,000 UNIT/GM TOPICAL CREAM 15GM TUBE. TP SCH ×2 (09:00→20:48)
[2017-09-14] MEDS: NYSTATIN TOPICAL POWDER 15GM BOTTLE. TP SCH ×2 (09:00→20:48)
--- NOTE | 2017-09-14 09:59 | PDOC2 ---
CARDIAC CONSULT DATE OF CONSULT Date of Consult DATE: 09/14/17 TIME: 09:42 REASON FOR CONSULT Reason for Consult: Abnormal troponin REFERRING PHYSICIAN Referring Physician: Diana SOURCE Source: Chart review, Patient HISTORY OF PRESENT ILLNESS HISTORY OF PRESENT ILLNESS This is a pleasant 81 male admitted for noted increasing confusion in the last 2 days. Because of this confusion he was brought to ED. There was no notable complains of chest pain nor SOA nor palpiations. He uses walker typically and denies any MARCUM. Upon admission he has been noted with hypoglycemia and dehydration and also hx of PAD with noted chronic neuropathic ulcer which accdg to family it is healing. Denies any significant RLE leg pains and neurovascular status to right foot is intact. Presently he is back to his baseline mentation. 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; chronic UTI) Endocrine: Diabetes (2) Dermatology: Other (right foot neuropathic ulcer) PAST SURGICAL HISTORY Past Surgical History Tonsillectomy, Other (eye surgery after injury), I & D right foot FAMILY HISTORY Family History CHF and Parkinsons' disease, dementia SOCIAL HISTORY Smoke: No ALCOHOL: none Drugs: None CURRENT MEDICATIONS CURRENT MEDICATIONS Current Medications Medications (Trade) Dose Ordered Sig/Chay Route PRN Reason Start Time Stop Time Status Last Admin Dose Admin Vancomycin HCl 1.25 gm/Dextrose 250 ml @ 167 mls/hr Q18H IV 09/13/17 12:00 09/14/17 06:11 Vancomycin HCl 1 each 1X ONCE MC 09/14/17 05:30 09/14/17 05:31 DC 09/14/17 05:30 Potassium Chloride/Sodium Chloride 1,000 ml @ 100 mls/hr Q10H IV 09/13/17 13:00 09/14/17 08:58 Enoxaparin Sodium (Lovenox 30mg Syringe) 30 mg Q24H SQ 09/13/17 21:00 09/13/17 21:14 Potassium Chloride (Klor-Con) 40 meq 1X ONCE PO 09/14/17 07:15 09/14/17 07:16 DC 09/14/17 08:57 ALLERGIES ALLERGIES: Coded Allergies: Influenza Virus Vaccines (Verified Allergy, Intermediate, 05/09/17) I S O L A T I O N *CONTACT* (Verified Allergy, Unknown, 05/12/17) mrsa ROS Review of System 14 point ROS evaluated with pertinent positives noted per HPI PHYSICAL EXAM General: Alert, Oriented X3, Cooperative, No acute distress HEENT: Atraumatic, Mucous membr. moist/pink Lungs: Clear to auscultation, Normal air movement Heart: Regular rate (SR), Normal S1, Normal S2, No murmurs Abdomen: Soft, No tenderness Extremities: No cyanosis, No edema Skin: No breakdown, Other (right plantar healing ulcer with intact dressing; right foot is pink positive for sensation and warm to touch. ) Neuro: Normal speech, Sensation intact Psych/Mental Status: Mental status NL, Mood NL MUSCULOSKELETAL: Osteoarthritic changes both hands VITALS VITALS Vital Signs Date Time Temp Pulse Resp B/P (MAP) Pulse Ox O2 Delivery O2 Flow Rate FiO2 09/14/17 08:57 70 177/81 09/14/17 07:10 97.5 16 98 Room Air 97.5 LABS Lab: Laboratory Tests Test 09/13/17 11:43 09/13/17 21:12 09/14/17 05:35 09/14/17 07:23 Glucose (Fingerstick) 96 mg/dL (70-99) 107 mg/dL (70-99) 107 mg/dL (70-99) White Blood Count 7.9 x10^3/uL (4.0-11.0) Red Blood Count 4.22 x10^6/uL (4.30-5.70) Hemoglobin 11.8 g/dL (13.0-17.5) Hematocrit 36.0 % (39.0-53.0) Mean Corpuscular Volume 85 fL (79-100) Mean Corpuscular Hemoglobin 28 pg (25-35) Mean Corpuscular Hemoglobin Concent 33 g/dL (31-37) Red Cell Distribution Width 13.6 % (11.5-14.5) Platelet Count 144 x10^3/uL (140-400) Erythrocyte Sedimentation Rate 62 (0-15) Sodium Level 139 mmol/L (136-145) Potassium Level 2.9 mmol/L (3.5-5.1) Chloride Level 102 mmol/L (98-107) Carbon Dioxide Level 32 mmol/L (21-32) Anion Gap 5 (6-14) Blood Urea Nitrogen 17 mg/dL (8-26) Creatinine 0.9 mg/dL (0.7-1.3) Estimated GFR (Cockcroft-Gault) 81.2 BUN/Creatinine Ratio 19 (6-20) Glucose Level 64 mg/dL (70-99) Calcium Level 8.8 mg/dL (8.5-10.1) Total Bilirubin 0.4 mg/dL (0.2-1.0) Aspartate Amino Transf (AST/SGOT) 26 U/L (15-37) Alanine Aminotransferase (ALT/SGPT) 17 U/L (16-63) Alkaline Phosphatase 115 U/L (46-116) Total Protein 6.5 g/dL (6.4-8.2) Albumin 2.2 g/dL (3.4-5.0) Albumin/Globulin Ratio 0.5 (1.0-1.7) Vancomycin Level Trough 13.3 mcg/mL (10.0-20.0) Vancomycin Last Dose Date 09/13/17 Vancomycin Last Dose Time 1200 IMAGES IMAGES Impression: No significant aortoiliac or femoropopliteal stenosis is identified. Single vessel to the right foot via the peroneal artery, with severe distal small vessel disease DATE: 05/15/17 1544 ECHOCARDIOGRAM ECHOCARDIOGRAM <Conclusion> The left ventricle is normal size. The left ventricular systolic function is normal and the ejection fraction is within normal range. The Ejection Fraction is 55-60%. There is mild concentric left ventricular hypertrophy. There is no significant aortic valvular stenosis. Doppler and Color Flow revealed no significant aortic regurgitation. Doppler and Color Flow revealed trace mitral valve regurgitation. Doppler and Color Flow revealed trace tricuspid regurgitation. The PA pressure was estimated at 30 mmHg. DATE: 09/12/16 1739 STRESS TEST STRESS TEST Conclusion 1. No EKG evidence of stressed induced ischemia. 2. Nuclear imaging shows no reversible ischemia or infarct. 3. Normal left ventricular systolic function with an ejection fraction of 68%. 4. Low risk Lexiscan nuclear stress test. DATE: 09/13/16 1533 ASSESSMENT/PLAN ASSESSMENT/PLAN 1. Metabolic encephalopathy: likely from chronic UTI and hypoglycemic episodes. Better per PCP 2. Elevated troponin: Peaked at 0.07. EKG SR with likely mild Asymmetrical T wave inversion to anterolateral leads. No cardiac symptoms. Suspecting demand mediated with underlying AMANUEL, hypoglycemic episodes and HTN. 3. PAD with noted right foot neuropathic ulcer: aziza rivera, evaluated by vascular surgery in 05/2017 and no revascularization warranted at that time 4. HTN: erratic but otherwise controlled 5. HLP 6. DM2 with hypoglycemic episodes. 7. Hx of orthostasis 8. Globus sensation: complains of food getting stuck with swallowing. Defer to PCP Recommendations 1. TTE 2. Ischemic w/u prior to DC likely as an MPI pending TTE report. 3. Continue with BB and statin. Will add ASA. 4. Check lipids and TSH. And check orthostatic readings. 5. Replace K, Check Mg and replace if low. Problems: KAITLYNN DUKE APRN Sep 14, 2017 09:59
[2017-09-14 10:18] LABS: MAGNESIUM 1.8 mg/dL (1.8-2.4)
[2017-09-14 10:19] LABS: CHOLESTEROL/HDL RATIO 2.5
[2017-09-14] MEDS: ASPIRIN ENTERIC COATED 81 MG TABLET.DR. PO SCH (12:30)
--- NOTE | 2017-09-14 16:14 | CARD ---
APPROVED REPORT EXAM: Two-dimensional and M-mode echocardiogram with Doppler and color Doppler. Other Information Quality : Good INDICATION Chest Pain dx elevated troponins 2D DIMENSIONS Left Atrium(2D)3.8 (1.6-4.0cm)IVSd1.2 (0.7-1.1cm) Aortic Root(2D)3.6 (2.0-3.7cm)LVDd4.4 (3.9-5.9cm) LVOT Diameter2.0 (1.8-2.4cm)PWd1.2 (0.7-1.1cm) LVDs3.1 (2.5-4.0cm)FS (%) 28.4 % SV47.8 mlLVEF(%)55.1 (>50%) Aortic Valve AoV Peak Khanh.114.4cm/sAoV VTI21.9cm AO Peak GR.5.2mmHgLVOT Peak Khanh.83.0cm/s AO Mean GR.2mmHgAVA (VMAX)2.33cm2 PREET (VTI)2.20cm2 Mitral Valve MV E Ubzevowz84.6cm/sMV DECEL [id number] MV A Khupczlo95.1cm/sE/A Ratio0.6 Tricuspid Valve TR P. Wfaqtsjk075ko/sRAP VBWKYZZV3mbPa TR Peak Gr.25thZqWMJU74vnRx LEFT VENTRICLE The left ventricle is normal size. There is mild concentric left ventricular hypertrophy. Left ventri valdo systolic function is low normal. The Ejection Fraction is 50-55%. There is grossly normal LV segm ental wall motion. Transmitral Doppler flow pattern is Grade I-abnormal relaxation pattern. RIGHT VENTRICLE The right ventricle is normal size. The right ventricular systolic function is normal. ATRIA The left atrium size is normal. The right atrium size is normal. The interatrial septum is intact wit h no evidence for an atrial septal defect or patent foramen ovale as noted on 2-D or Doppler imaging. AORTIC VALVE The aortic valve is sclerotic and not well visualized. Doppler and Color Flow revealed no significant aortic regurgitation. There is no significant aortic valvular stenosis. MITRAL VALVE The mitral valve is normal in structure and function. There is no evidence of mitral valve prolapse. There is no mitral valve stenosis. Doppler and Color Flow revealed no mitral valve regurgitation note d. TRICUSPID VALVE The tricuspid valve is normal in structure. Doppler and Color Flow revealed no tricuspid valve regurg itation noted. The PA pressure was estimated at 35 mmHg. There is no tricuspid valve prolapse or vege tation. There is no tricuspid valve stenosis. PULMONIC VALVE Doppler and Color Flow revealed no pulmonic valvular regurgitation. There is no pulmonic valvular vicente nosis. GREAT VESSELS The aortic root is normal in size. The ascending aorta is normal in size. The IVC is normal in size a nd collapses >50% with inspiration. PERICARDIAL EFFUSION There is no pleural effusion. There is no evidence of significant pericardial effusion. Critical Notification Critical Value: No <Conclusion> Left ventricle systolic function is low normal. The Ejection Fraction is 50-55%. There is grossly normal LV segmental wall motion. Doppler and Color Flow revealed no tricuspid valve regurgitation noted. The PA pressure was estimated at 35 mmHg.
[2017-09-14] MEDS: ATORVASTATIN CALCIUM 10 MG TABLET. PO SCH (20:46)
[2017-09-14] MEDS: ENOXAPARIN 40 MG/0.4 ML SYRINGE. SQ SCH (20:46)
[2017-09-14] MEDS: INSULIN DETEMIR 300 UNITS/3 ML INSULN.PEN. SQ SCH (20:53)
[2017-09-15 03:20] VITALS: BP 178/96
[2017-09-15] MEDS: PIPERACILLIN/TAZO IV Push 3.375 GM VIAL. IVP SCH ×3 (05:48→17:40)
[2017-09-15] MEDS: POTASSIUM CL 20MEQ-0.45% NACL 1,000 ML IV SCH ×2 (05:49→20:48)
[2017-09-15 06:08] LABS: CALCIUM 9.2 mg/dL (8.5-10.1); CREATININE 0.9 mg/dL (0.7-1.3); GFR 81.2; POTASSIUM 4.5 mmol/L (3.5-5.1)
[2017-09-15 07:36] VITALS: BP 180/91
[2017-09-15] MEDS: INSULIN ASPART 300 UNITS/3 ML INSULN.PEN SQ SCH ×3 (08:00→17:40)
[2017-09-15] MEDS ORDERED: ASPIRIN ENTERIC COATED 81 MG TABLET.DR. PO SCH (08:00)
--- NOTE | 2017-09-15 08:45 | PDOC ---
GENERAL General: vss and afebrile. awake and alert. sugars pretty good. chest clear and heart regular. abdomen benign and extremities same. ongoing iv antibiotics for uti. therapy has started. continue present and await culture results. mental status is back to his baseline. Problems: VITAL SIGNS Vital Signs: Vital Signs Date Time Temp Pulse Resp B/P (MAP) Pulse Ox O2 Delivery O2 Flow Rate FiO2 09/15/17 03:20 97.6 76 20 178/96 (123) 99 Room Air 97.6 I & O I & O Intake and Output 09/15/17 06:59 Intake Total 1800 ml Output Total 4500 ml Balance -2700 ml Intake Oral 1800 ml Output Urine Total 4500 ml # Bowel Movements 2 ALLERGIES Allergies: Allergies Coded Allergies Type Severity Reaction Last Updated Verified Influenza Virus Vaccines Allergy Intermediate 05/09/17 Yes I S O L A T I O N *CONTACT* Allergy Unknown 05/12/17 Yes MEDS Medications: Current Medications Medications (Trade) Dose Ordered Sig/Chay Start Time Stop Time Status Last Admin Dose Admin Aspirin (Ecotrin) 81 mg [id number] 09/15/17 08:00 UNV Atorvastatin Calcium (Lipitor) 10 mg QHS 09/12/17 21:00 09/14/17 20:46 10 MG Celecoxib (CeleBREX) 200 mg BID 09/12/17 21:00 09/13/17 11:16 DC 09/13/17 08:51 200 MG Dextrose (Dextrose 50%-Water Syringe) 12.5 gm PRN Q15MIN PRN 09/13/17 11:45 Duloxetine HCl (Cymbalta) 60 mg DAILY 09/13/17 09:00 09/14/17 08:57 60 MG Enoxaparin Sodium (Lovenox 30mg Syringe) 30 mg Q24H 09/13/17 21:00 09/14/17 11:07 DC 09/13/17 21:14 30 MG Enoxaparin Sodium (Lovenox 40mg Syringe) 40 mg Q24H 09/14/17 21:00 09/14/17 20:46 40 MG Fluconazole (Diflucan) 100 mg 1X ONCE 09/12/17 15:00 09/12/17 15:01 DC 09/12/17 17:55 100 MG Glimepiride (Amaryl) 4 mg DAILY 09/13/17 09:00 09/13/17 11:16 DC 09/13/17 08:51 4 MG Insulin Aspart (NovoLOG) 0-5 UNITS TIDWMEALS 09/13/17 12:00 09/14/17 18:10 3 UNITS Insulin Detemir (Levemir) 30 units QHS 09/14/17 21:00 09/14/17 20:53 30 UNITS Lactobacillus Rhamnosus (Culturelle) 1 cap BID 09/12/17 21:00 09/14/17 20:57 1 CAP Metoprolol Tartrate (Lopressor) 25 mg BID 09/12/17 21:00 09/14/17 20:47 25 MG Nystatin (Mycostatin) 1 kimberly BID 09/12/17 13:30 09/14/17 20:48 1 KIMBERLY Nystatin (Nystop) 1 kimberly BID 09/12/17 13:00 09/14/17 20:48 1 KIMBERLY Ondansetron HCl (Zofran) 4 mg PRN Q8HRS PRN 09/12/17 14:45 09/13/17 11:16 DC Piperacillin Sod/ Tazobactam Sod (Zosyn Per Pharmacy) 1 each PRN DAILY PRN 09/12/17 14:45 Piperacillin Sod/ Tazobactam Sod (Zosyn) 3.375 gm Q6HRS 09/12/17 18:00 09/15/17 05:48 3.375 GM Pneumococcal Polyvalent Vaccine (Pneumovax 23) 0.5 ml ONCE ONCE 09/13/17 09:00 09/13/17 09:01 DC 09/13/17 08:54 0.5 ML Potassium Chloride/Sodium Chloride 1,000 ml @ 100 mls/hr Q10H 09/13/17 13:00 09/15/17 05:49 100 MLS/HR Potassium Chloride (Klor-Con) 40 meq 1X ONCE 09/14/17 14:00 09/14/17 14:01 DC Sodium Chloride 1,000 ml @ 125 mls/hr Q8H 09/12/17 15:00 09/13/17 11:16 DC 09/13/17 07:00 125 MLS/HR Vancomycin HCl 1 each 1X ONCE 09/14/17 05:30 09/14/17 05:31 DC 09/14/17 05:30 1 EACH Vancomycin HCl (Vanco Per Pharmacy) 1 each PRN DAILY PRN 09/12/17 14:45 09/14/17 06:49 1 EACH Vancomycin HCl 1.25 gm/Dextrose 250 ml @ 167 mls/hr Q18H 09/13/17 12:00 09/14/17 23:40 167 MLS/HR Vancomycin HCl 1.5 gm/Dextrose 500 ml @ 250 mls/hr 1X ONCE 09/12/17 15:30 09/12/17 17:29 DC 09/12/17 17:55 250 MLS/HR LAB Lab: Laboratory Tests Test 09/14/17 11:29 09/14/17 13:55 09/15/17 04:45 Glucose (Fingerstick) 197 mg/dL (70-99) Potassium Level 4.1 mmol/L (3.5-5.1) 4.5 mmol/L (3.5-5.1) Sodium Level 142 mmol/L (136-145) Chloride Level 104 mmol/L (98-107) Carbon Dioxide Level 35 mmol/L (21-32) Anion Gap 3 (6-14) Blood Urea Nitrogen 13 mg/dL (8-26) Creatinine 0.9 mg/dL (0.7-1.3) Estimated GFR (Cockcroft-Gault) 81.2 Glucose Level 126 mg/dL (70-99) Calcium Level 9.2 mg/dL (8.5-10.1) LUISITO RUSSELL MD Sep 15, 2017 08:45
[2017-09-15] MEDS: LACTOBACILLUS RHAMNOSUS GG 1 CAPSULE. PO SCH ×2 (09:00→20:49)
[2017-09-15] MEDS: NYSTATIN 100,000 UNIT/GM TOPICAL CREAM 15GM TUBE. TP SCH ×2 (09:00→20:51)
[2017-09-15] MEDS: NYSTATIN TOPICAL POWDER 15GM BOTTLE. TP SCH ×2 (09:00→20:51)
[2017-09-15] MEDS ORDERED: REGADENOSON 0.4 MG/5 ML DISP.SYRIN. IV ONE (11:00)
[2017-09-15] MEDS: ASPIRIN ENTERIC COATED 81 MG TABLET.DR. PO SCH (11:51)
[2017-09-15] MEDS: DULoxetine HCL 30 MG CAPSULE.DR PO SCH (11:51)
[2017-09-15] MEDS: METOPROLOL TART IMMED RELEASE 25 MG TABLET. PO SCH ×2 (11:51→20:49)
--- NOTE | 2017-09-15 12:20 | PDOC ---
CARDIO Progress Notes Date and Time Date of Service 09/15/17 Time of Evaluation 1125 Subjective Subjective: No Chest Pain, No shortness of breath Vitals Vitals Vital Signs Date Time Temp Pulse Resp B/P (MAP) Pulse Ox O2 Delivery O2 Flow Rate FiO2 09/15/17 11:51 74 180/91 09/15/17 08:00 Room Air 09/15/17 07:36 98.1 20 99 98.1 Weight Weight [ ] Input and Output Intake and Output Intake and Output 09/15/17 07:00 Intake Total 1800 ml Output Total 4500 ml Balance -2700 ml Intake Oral 1800 ml Output Urine Total 4500 ml # Bowel Movements 2 Laboratory Labs Laboratory Tests Test 09/14/17 13:55 09/15/17 04:45 Potassium Level 4.1 mmol/L (3.5-5.1) 4.5 mmol/L (3.5-5.1) Sodium Level 142 mmol/L (136-145) Chloride Level 104 mmol/L (98-107) Carbon Dioxide Level 35 mmol/L (21-32) Anion Gap 3 (6-14) Blood Urea Nitrogen 13 mg/dL (8-26) Creatinine 0.9 mg/dL (0.7-1.3) Estimated GFR (Cockcroft-Gault) 81.2 Glucose Level 126 mg/dL (70-99) Calcium Level 9.2 mg/dL (8.5-10.1) Microbiology Micro Microbiology 09/12/17 Blood Culture - Preliminary, Resulted NO GROWTH AFTER 2 DAYS Physical Exam HEENT: Neck Supple W Full Motion Chest: Symmetric LUNGS: Clear to Auscultation Heart: S1S2, RRR Abdomen: Soft N/T Extremities: Other (DRSG intact to right plantar ulcer; right foot neurovascular status intact ) Neurology: alert, oriented, follow commands Assessment Assessment 1. Metabolic encephalopathy: likely secondary to UTI and hypoglycemic episodes. Improved, mental status now at baseline 2. Elevated troponin: Peaked at 0.07. EKG SR with T wave inversion of anterolateral leads. Most probably type II demand ischemia secondary to AMANUEL, hypoglycemic episodes, and HTN. Echo with low-normal systolic function with normal wall motion. MPI underway today to r/o ischemia 3. PAD with noted right foot neuropathic ulcer; healing, evaluated by vascular surgery in 05/2017 and no revascularization warranted at that time 4. Hypertension; labile 5. Hyperlipidemia; statin 6. DM2 with hypoglycemic episodes; as per PCP 7. Hx of orthostasis; none noted with recent readings Recommendations 1. Continue ASA, BB, and statin. 2. Add ACEi for better BP control 3. If MPI without evidence of ischemia, may discharge from a CV standpoint. JOBY JAMIL APRN Sep 15, 2017 12:20
[2017-09-15] MEDS: LISINOPRIL 5 MG TABLET. PO SCH (13:08)
--- NOTE | 2017-09-15 14:33 | RAD ---
APPROVED REPORT Test Type: Pharmacological Stress Nurse/Tech: Chhaya Hathaway R.N. Test Indications: elevated troponin Cardiac History: Nstemi 03/18, htn, smoker, dm Medications: see ehr Medical History: see ehr Resting ECG: SR see readout Resting Heart Rate: 80 bpm Resting Blood Pressure: 149/89mmHg Pretest Chest Pain: No chest pain Nurse/Tech Notes lungs cta, heart tones regular Consent: The procedure was explained to the patient in lay terms. Informed consent was witnessed. Temo eout was entered into [employer]. History and Stress Test performed by RT Sheila Sneed) (N) Pharm. Details Pharmacologic stress testing was performed using 0.4mg per 5ml of regadenoson given intravenously ove r 7-10 seconds. Stress Symptoms No chest pain or symptoms. POST EXERCISE Reason for Termination: Infusion complete Target HR: No Max HR: 98 bpm Max Blood Pressure: 140/86mmHg Chest Pain: No. Arrhythmia: Yes. unifocal pvcs noted ST Change: No. INTERPRETATION Stress EKG Conclusion: No evidence of vasodilator induced EKG changes. Imaging Protocol IMAGE PROTOCOL: Rest Tc-99m/stress Tc-99m 1 day Rest: Stress: Viability: Radiopharm.Tc99m KkrlzyxvrEi04g Sestamibi Epda25vZy 33mCi Duration 15min. 10min. Img Date 09/15/2017 09/15/2017 Inj-Img Ihsc91pmd. 60min. Rest Admin Site:IV - Left AntecubitalAdministrator:RT Naren (R)(N) Stress Admin Site: IV - Left AntecubitalAdministrator: RT Tejal (R)(N) STRESS DATA End Diast. Vol.103.0mlAv. Heart Rate75.0bpm End Syst. Vol.45.0mlCO Index BSA0.0L/min Myocardial Zidj616.0gEject. Wdvwnheg19.0% Stress Rates Pk. Fill Rate0.75EDV/secLVtime Pk. Fill 108.74msec Pk. Empty Rate3.01ESV/secLVtime Pk. Kquug056.69msec 11/04 Pk. Fill0.58EDV/sec Stress Scores Regional WT0.00Summed WT17.00 Regional WM0.00Summed WM5.00 The rest and stress images show normal perfusion, normal contraction and thickening. LV Perf. Quant 17 Seg. SSS6.00 17 Seg. SRS5.00 17 Seg. SDS2.00 Stress Defect Extent (% LAD)10.00Rest Defect Extent (% LAD)4.40Rev. Defect Extent (% LAD)0.00 Stress Defect Extent (% LCX) 15.00Rest Defect Extent (% LCX)22.50Rev. Defect Extent (% LCX)0.00 Stress Defect Extent (% RCA)0.00Rest Defect Extent (% RCA)8.90Rev. Defect Extent (% RCA)0.00 Stress Defect Extent (% ROMA)8.70Rest Defect Extent (% ROMA)10.70Rev. Defect Extent (% ROMA)0.00 Other Information Quality:Good Risk Assessment: Low Risk Conclusion 1. No evidence of EKG changes with stress testing. 2. Normal perfusion at stress/rest. 3. Diaphragmatic attenuation artifact. 4. Low risk study. 5. Normal EF at 55%.
[2017-09-15 15:01] VITALS: BP 160/82
[2017-09-15] MEDS: VANCOMYCIN 1.25 GM in IV DEXTROSE 5% 250 ML IV SCH (17:41)
[2017-09-15 19:39] VITALS: BP 141/74
[2017-09-15] MEDS: ENOXAPARIN 40 MG/0.4 ML SYRINGE. SQ SCH (20:48)
[2017-09-15] MEDS: ATORVASTATIN CALCIUM 10 MG TABLET. PO SCH (20:49)
[2017-09-15] MEDS: INSULIN DETEMIR 300 UNITS/3 ML INSULN.PEN. SQ SCH (20:59)
[2017-09-15 23:15] VITALS: BP 135/72
[2017-09-16] MEDS: PIPERACILLIN/TAZO IV Push 3.375 GM VIAL. IVP SCH ×2 (00:26→05:37)
[2017-09-16] MEDS: POTASSIUM CL 20MEQ-0.45% NACL 1,000 ML IV SCH ×2 (01:00→11:00)
[2017-09-16 03:20] VITALS: BP 173/88
[2017-09-16 07:20] VITALS: BP 191/94
[2017-09-16] MEDS: INSULIN ASPART 300 UNITS/3 ML INSULN.PEN SQ SCH ×3 (08:00→18:17)
--- NOTE | 2017-09-16 08:42 | PDOC ---
GENERAL General: vss and afebrile. awake and alert. mrsa on urine culture and today day 4 iv antibiotics. sugars decent. therapy recommends snu. chest clear and heart regular and abdomen benign. cardiac workup negative with echo essentially ok and stress test negative. will get snu eval for tomorrow and continue same. will dc zosyn and likely start bactrim tomorrow. Problems: VITAL SIGNS Vital Signs: Vital Signs Date Time Temp Pulse Resp B/P (MAP) Pulse Ox O2 Delivery O2 Flow Rate FiO2 09/16/17 07:20 98.1 75 16 191/94 (126) 99 Room Air 98.1 I & O I & O Intake and Output 09/16/17 07:00 Intake Total 930 ml Output Total 4650 ml Balance -3720 ml Intake Oral 930 ml Output Urine Total 4650 ml # Bowel Movements 1 ALLERGIES Allergies: Allergies Coded Allergies Type Severity Reaction Last Updated Verified Influenza Virus Vaccines Allergy Intermediate 05/09/17 Yes I S O L A T I O N *CONTACT* Allergy Unknown 05/12/17 Yes MEDS Medications: Current Medications Medications (Trade) Dose Ordered Sig/Chay Start Time Stop Time Status Last Admin Dose Admin Aspirin (Ecotrin) 81 mg DAILYWBKFT 09/15/17 08:00 UNV Atorvastatin Calcium (Lipitor) 10 mg QHS 09/12/17 21:00 09/15/17 20:49 10 MG Celecoxib (CeleBREX) 200 mg BID 09/12/17 21:00 09/13/17 11:16 DC 09/13/17 08:51 200 MG Dextrose (Dextrose 50%-Water Syringe) 12.5 gm PRN Q15MIN PRN 09/13/17 11:45 Duloxetine HCl (Cymbalta) 60 mg DAILY 09/13/17 09:00 09/15/17 11:51 60 MG Enoxaparin Sodium (Lovenox 30mg Syringe) 30 mg Q24H 09/13/17 21:00 09/14/17 11:07 DC 09/13/17 21:14 30 MG Enoxaparin Sodium (Lovenox 40mg Syringe) 40 mg Q24H 09/14/17 21:00 09/15/17 20:48 40 MG Fluconazole (Diflucan) 100 mg 1X ONCE 09/12/17 15:00 11/11/17 15:01 DC 09/12/17 17:55 100 MG Glimepiride (Amaryl) 4 mg DAILY 09/13/17 09:00 09/13/17 11:16 DC 09/13/17 08:51 4 MG Insulin Aspart (NovoLOG) 0-5 UNITS TIDWMEALS 09/13/17 12:00 09/15/17 17:40 4 UNITS Insulin Detemir (Levemir) 30 units QHS 09/14/17 21:00 09/15/17 20:59 30 UNITS Lactobacillus Rhamnosus (Culturelle) 1 cap BID 09/12/17 21:00 09/15/17 20:49 1 CAP Lisinopril (Prinivil) 5 mg DAILY 09/15/17 12:30 09/15/17 13:08 5 MG Metoprolol Tartrate (Lopressor) 25 mg BID 09/12/17 21:00 09/15/17 20:49 25 MG Nystatin (Mycostatin) 1 kimberly BID 09/12/17 13:30 09/15/17 20:51 1 KIMBERLY Nystatin (Nystop) 1 kimberly BID 09/12/17 13:00 09/15/17 20:51 1 KIMBERLY Ondansetron HCl (Zofran) 4 mg PRN Q8HRS PRN 09/12/17 14:45 09/13/17 11:16 DC Piperacillin Sod/ Tazobactam Sod (Zosyn Per Pharmacy) 1 each PRN DAILY PRN 09/12/17 14:45 Piperacillin Sod/ Tazobactam Sod (Zosyn) 3.375 gm Q6HRS 09/12/17 18:00 09/16/17 05:37 3.375 GM Pneumococcal Polyvalent Vaccine (Pneumovax 23) 0.5 ml ONCE ONCE 09/13/17 09:00 09/13/17 09:01 DC 09/13/17 08:54 0.5 ML Potassium Chloride/Sodium Chloride 1,000 ml @ 100 mls/hr Q10H 09/13/17 13:00 09/15/17 20:48 100 MLS/HR Potassium Chloride (Klor-Con) 40 meq 1X ONCE 09/14/17 14:00 09/14/17 14:01 DC Regadenoson (Lexiscan) 0.4 mg 1X ONCE 09/15/17 11:00 09/15/17 11:01 DC 09/15/17 11:14 0.4 MG Sodium Chloride 1,000 ml @ 125 mls/hr Q8H 09/12/17 15:00 09/13/17 11:16 DC 09/13/17 07:00 125 MLS/HR Vancomycin HCl 1 each 1X ONCE 09/14/17 05:30 09/14/17 05:31 DC 09/14/17 05:30 1 EACH Vancomycin HCl (Vanco Per Pharmacy) 1 each PRN DAILY PRN 09/12/17 14:45 09/14/17 06:49 1 EACH Vancomycin HCl 1.25 gm/Dextrose 250 ml @ 167 mls/hr Q18H 09/13/17 12:00 09/15/17 17:41 167 MLS/HR Vancomycin HCl 1.5 gm/Dextrose 500 ml @ 250 mls/hr 1X ONCE 09/12/17 15:30 09/12/17 17:29 DC 09/12/17 17:55 250 MLS/HR LAB Lab: Laboratory Tests Test 09/15/17 12:17 09/15/17 16:10 09/15/17 20:47 09/16/17 07:23 Glucose (Fingerstick) 58 mg/dL (70-99) 261 mg/dL (70-99) 252 mg/dL (70-99) 68 mg/dL (70-99) Test 09/16/17 08:03 Glucose (Fingerstick) 89 mg/dL (70-99) LUISITO RUSSELL MD Sep 16, 2017 08:42
[2017-09-16] MEDS: LACTOBACILLUS RHAMNOSUS GG 1 CAPSULE. PO SCH ×2 (09:51→20:25)
[2017-09-16] MEDS: ASPIRIN ENTERIC COATED 81 MG TABLET.DR. PO SCH (09:51)
[2017-09-16] MEDS: DULoxetine HCL 30 MG CAPSULE.DR PO SCH (09:51)
[2017-09-16] MEDS: LISINOPRIL 5 MG TABLET. PO SCH (09:51)
[2017-09-16] MEDS: METOPROLOL TART IMMED RELEASE 25 MG TABLET. PO SCH ×2 (09:52→20:24)
[2017-09-16] MEDS: NYSTATIN TOPICAL POWDER 15GM BOTTLE. TP SCH ×2 (09:53→20:32)
[2017-09-16] MEDS: NYSTATIN 100,000 UNIT/GM TOPICAL CREAM 15GM TUBE. TP SCH ×2 (09:53→20:32)
[2017-09-16 11:30] VITALS: BP 153/83
[2017-09-16] MEDS: VANCOMYCIN 1.25 GM in IV DEXTROSE 5% 250 ML IV SCH (13:09)
[2017-09-16 15:55] VITALS: BP 143/78
[2017-09-16 19:41] VITALS: BP 121/70
[2017-09-16] MEDS: ATORVASTATIN CALCIUM 10 MG TABLET. PO SCH (20:25)
[2017-09-16] MEDS: SMZ/TMP 800/160MG TABLET. PO SCH (20:25)
[2017-09-16] MEDS: ENOXAPARIN 40 MG/0.4 ML SYRINGE. SQ SCH (20:25)
[2017-09-16] MEDS: INSULIN DETEMIR 300 UNITS/3 ML INSULN.PEN. SQ SCH (20:30)
[2017-09-16 23:41] VITALS: BP 133/65
[2017-09-17 03:35] VITALS: BP 163/97
[2017-09-17 07:12] VITALS: BP 141/87
[2017-09-17] MEDS: INSULIN ASPART 300 UNITS/3 ML INSULN.PEN SQ SCH ×2 (08:00→12:17)
--- NOTE | 2017-09-17 08:52 | PDOC ---
GENERAL General: see discharge summary. Problems: VITAL SIGNS Vital Signs: Vital Signs Date Time Temp Pulse Resp B/P (MAP) Pulse Ox O2 Delivery O2 Flow Rate FiO2 09/17/17 07:12 98.6 74 18 141/87 (105) 99 Room Air 98.6 I & O I & O Intake and Output 09/17/17 07:00 Intake Total 450 ml Output Total 2001 ml Balance -1551 ml Intake Oral 450 ml Output Urine Total 2001 ml ALLERGIES Allergies: Allergies Coded Allergies Type Severity Reaction Last Updated Verified Influenza Virus Vaccines Allergy Intermediate 05/09/17 Yes I S O L A T I O N *CONTACT* Allergy Unknown 05/12/17 Yes MEDS Medications: Current Medications Medications (Trade) Dose Ordered Sig/Chay Start Time Stop Time Status Last Admin Dose Admin Aspirin (Ecotrin) 81 mg DAILYWBKFT 09/15/17 08:00 UNV Atorvastatin Calcium (Lipitor) 10 mg QHS 09/12/17 21:00 09/16/17 20:25 10 MG Celecoxib (CeleBREX) 200 mg BID 09/12/17 21:00 09/13/17 11:16 DC 09/13/17 08:51 200 MG Dextrose (Dextrose 50%-Water Syringe) 12.5 gm PRN Q15MIN PRN 09/13/17 11:45 Duloxetine HCl (Cymbalta) 60 mg DAILY 09/13/17 09:00 09/16/17 09:51 60 MG Enoxaparin Sodium (Lovenox 30mg Syringe) 30 mg Q24H 09/13/17 21:00 09/14/17 11:07 DC 09/13/17 21:14 30 MG Enoxaparin Sodium (Lovenox 40mg Syringe) 40 mg Q24H 09/14/17 21:00 09/16/17 20:25 40 MG Fluconazole (Diflucan) 100 mg 1X ONCE 09/12/17 15:00 09/12/17 15:01 DC 09/12/17 17:55 100 MG Glimepiride (Amaryl) 4 mg DAILY 09/13/17 09:00 09/13/17 11:16 DC 09/13/17 08:51 4 MG Insulin Aspart (NovoLOG) 0-5 UNITS TIDWMEALS 09/13/17 12:00 09/16/17 18:17 3 UNITS Insulin Detemir (Levemir) 30 units QHS 09/14/17 21:00 09/16/17 20:30 30 UNITS Lactobacillus Rhamnosus (Culturelle) 1 cap BID 09/12/17 21:00 09/16/17 20:25 1 CAP Lisinopril (Prinivil) 5 mg DAILY 09/15/17 12:30 09/16/17 09:51 5 MG Metoprolol Tartrate (Lopressor) 25 mg BID 09/12/17 21:00 09/16/17 20:24 25 MG Nystatin (Mycostatin) 1 kimberly BID 09/12/17 13:30 09/16/17 20:32 1 KIMBERLY Nystatin (Nystop) 1 kimberly BID 09/12/17 13:00 09/16/17 20:32 1 KIMBERLY Ondansetron HCl (Zofran) 4 mg PRN Q8HRS PRN 09/12/17 14:45 09/13/17 11:16 DC Piperacillin Sod/ Tazobactam Sod (Zosyn Per Pharmacy) 1 each PRN DAILY PRN 09/12/17 14:45 09/16/17 15:23 DC Piperacillin Sod/ Tazobactam Sod (Zosyn) 3.375 gm Q6HRS 09/12/17 18:00 09/16/17 08:43 DC 09/16/17 05:37 3.375 GM Pneumococcal Polyvalent Vaccine (Pneumovax 23) 0.5 ml ONCE ONCE 09/13/17 09:00 09/13/17 09:01 DC 09/13/17 08:54 0.5 ML Potassium Chloride/Sodium Chloride 1,000 ml @ 100 mls/hr Q10H 09/13/17 13:00 09/16/17 19:42 DC 09/15/17 20:48 100 MLS/HR Potassium Chloride (Klor-Con) 40 meq 1X ONCE 09/14/17 14:00 09/14/17 14:01 DC Regadenoson (Lexiscan) 0.4 mg 1X ONCE 09/15/17 11:00 09/15/17 11:01 DC 09/15/17 11:14 0.4 MG Sodium Chloride 1,000 ml @ 125 mls/hr Q8H 09/12/17 15:00 09/13/17 11:16 DC 09/13/17 07:00 125 MLS/HR Trimethoprim/ Sulfamethoxazole (Bactrim Ds) 1 tab BID 09/16/17 21:00 09/16/17 20:25 1 TAB Vancomycin HCl 1 each 1X ONCE 09/14/17 05:30 09/14/17 05:31 DC 09/14/17 05:30 1 EACH Vancomycin HCl (Vanco Per Pharmacy) 1 each PRN DAILY PRN 09/12/17 14:45 09/16/17 19:47 DC 09/14/17 06:49 1 EACH Vancomycin HCl 1.25 gm/Dextrose 250 ml @ 167 mls/hr Q18H 09/13/17 12:00 09/16/17 19:42 DC 09/16/17 13:09 167 MLS/HR Vancomycin HCl 1.5 gm/Dextrose 500 ml @ 250 mls/hr 1X ONCE 09/12/17 15:30 09/12/17 17:29 DC 09/12/17 17:55 250 MLS/HR LAB Lab: Laboratory Tests Test 09/17/17 08:33 Glucose (Fingerstick) 92 mg/dL (70-99) LUISITO RUSSELL MD Sep 17, 2017 08:52
[2017-09-17] MEDS: ASPIRIN ENTERIC COATED 81 MG TABLET.DR. PO SCH (09:30)
[2017-09-17] MEDS: SMZ/TMP 800/160MG TABLET. PO SCH (09:30)
[2017-09-17] MEDS: LACTOBACILLUS RHAMNOSUS GG 1 CAPSULE. PO SCH (09:30)
[2017-09-17] MEDS: LISINOPRIL 5 MG TABLET. PO SCH (09:31)
[2017-09-17] MEDS: METOPROLOL TART IMMED RELEASE 25 MG TABLET. PO SCH (09:31)
[2017-09-17] MEDS: DULoxetine HCL 30 MG CAPSULE.DR PO SCH (09:31)
[2017-09-17] MEDS: NYSTATIN 100,000 UNIT/GM TOPICAL CREAM 15GM TUBE. TP SCH (09:32)
[2017-09-17] MEDS: NYSTATIN TOPICAL POWDER 15GM BOTTLE. TP SCH (09:32)
[2017-09-17 10:39] VITALS: BP 123/76
[2017-09-17 14:51] VITALS: BP 120/79
--- NOTE | 2017-10-10 18:16 | DS ---
DATE OF DISCHARGE: 09/17/2017 PRIMARY DIAGNOSES: Toxic encephalopathy due to urinary tract infection with methicillin-resistant Staphylococcus aureus, diabetic foot ulcer, hypoglycemia, hypokalemia, chronic kidney disease, peripheral arterial disease, elevated troponin, felt due to demand ischemia with a normal echo and stress testing during the stay. CHIEF COMPLAINT AND HISTORY OF PRESENT ILLNESS: This 81-year-old male admitted through the Emergency Room with change in mental status. SUMMARY OF STAY: The patient was found to have a urinary tract infection, stable right diabetic foot ulcer that looks clean. He was treated with IV antibiotics throughout the stay, transitioned to Bactrim at the time of discharge after it was apparent MRSA was the offending agent. He did have an echocardiogram and stress testing that were normal during the stay, did have some hypokalemia, which was replaced; hypoglycemia, which was likely due to poor intake due to being sick. His peripheral arterial disease was stable through the stay and it was felt he could go to [facility] for rehab as well as ongoing monitoring at the time of discharge and this was accomplished. DISPOSITION: The patient is discharged to SNU. DIET: Diabetic diet. ACTIVITY: With help. Therapy to evaluate, wound care to continue. Ongoing meds as listed on the med rec. We will continue to follow him there. LUISITO RUSSELL MD DR: CORINNE/vielka JOB#: [id number] / [id number]
== END 2017-09-17 15:59 | DRG 682 ==
LOC: ER 12:40 → 6 SOUTH 13:55
PROVIDERS: ADMIT Family Medicine; ATTEND Family Medicine
DX: N17.9 Acute kidney failure, unspecified (principal); G93.41 Metabolic encephalopathy; E11.22 Type 2 diabetes mellitus with diabetic chronic kidney disease; E11.51 Type 2 diabetes mellitus with diabetic peripheral angiopathy without gangrene; N39.0 Urinary tract infection, site not specified; E11.621 Type 2 diabetes mellitus with foot ulcer; E11.65 Type 2 diabetes mellitus with hyperglycemia; E78.5 Hyperlipidemia, unspecified; E86.0 Dehydration; E87.6 Hypokalemia; F03.90 Unspecified dementia, unspecified severity, without behavioral disturbance, psychotic disturbance, mood disturbance, and anxiety; F45.8 Other somatoform disorders; I12.9 Hypertensive chronic kidney disease with stage 1 through stage 4 chronic kidney disease, or unspecified chronic kidney disease; I25.10 Atherosclerotic heart disease of native coronary artery without angina pectoris; L97.519 Non-pressure chronic ulcer of other part of right foot with unspecified severity; N18.9 Chronic kidney disease, unspecified; N36.8 Other specified disorders of urethra; N40.0 Benign prostatic hyperplasia without lower urinary tract symptoms; F32.9 Major depressive disorder, single episode, unspecified; F41.9 Anxiety disorder, unspecified; M19.90 Unspecified osteoarthritis, unspecified site; Z82.0 Family history of epilepsy and other diseases of the nervous system; Z82.49 Family history of ischemic heart disease and other diseases of the circulatory system; Z83.3 Family history of diabetes mellitus; Z90.89 Acquired absence of other organs
CPT/HCPCS: 36415; 70450; 71010; 78452; 80048; 80053; 80061; 80202; 81001; 82553; 82962; 83735; 83880; 84132; 84443; 84484; 85025; 85027; 85610; 85651; 85730; 87040; 87086; 87186; 87491; 87591; 90732; 93017; 93306; 96374; 96375; 96376; A9500; J1650; J1815; J2543; J2785; J3370; J7030; J7042; P9612; 97110; 97116; 97530; 97535; 99285-25

== ENCOUNTER → 2017-09-22 | Outpatient (CLI) | payer MEDICARE, BC ==
[2017-09-17 14:51] VITALS: BP 120/79
[~2017-09-22] MED LIST changes: +DULA1.5P SQ; +INSU100V13 SQ
== END | disposition home or self-care (01) ==
LOC: PMGWOUND 09:07
PROVIDERS: ATTEND Emergency Medicine Undersea and Hyperbaric Medicine
DX: E11.621 Type 2 diabetes mellitus with foot ulcer (principal); L97.513 Non-pressure chronic ulcer of other part of right foot with necrosis of muscle; F41.9 Anxiety disorder, unspecified; I25.10 Atherosclerotic heart disease of native coronary artery without angina pectoris; E78.5 Hyperlipidemia, unspecified; F32.9 Major depressive disorder, single episode, unspecified; M19.90 Unspecified osteoarthritis, unspecified site; E11.22 Type 2 diabetes mellitus with diabetic chronic kidney disease; I12.9 Hypertensive chronic kidney disease with stage 1 through stage 4 chronic kidney disease, or unspecified chronic kidney disease; N18.9 Chronic kidney disease, unspecified; E11.51 Type 2 diabetes mellitus with diabetic peripheral angiopathy without gangrene; F03.90 Unspecified dementia, unspecified severity, without behavioral disturbance, psychotic disturbance, mood disturbance, and anxiety
CPT/HCPCS: 11042

== ENCOUNTER → 2017-09-29 | Outpatient (CLI) | payer MEDICARE, BC ==
[2017-09-17 14:51] VITALS: BP 120/79
== END | disposition home or self-care (01) ==
LOC: PMGWOUND 09:17
PROVIDERS: ATTEND Emergency Medicine Undersea and Hyperbaric Medicine
DX: E11.621 Type 2 diabetes mellitus with foot ulcer (principal); L97.513 Non-pressure chronic ulcer of other part of right foot with necrosis of muscle; F32.9 Major depressive disorder, single episode, unspecified; I25.2 Old myocardial infarction; F41.9 Anxiety disorder, unspecified; E78.5 Hyperlipidemia, unspecified; E11.22 Type 2 diabetes mellitus with diabetic chronic kidney disease; I12.9 Hypertensive chronic kidney disease with stage 1 through stage 4 chronic kidney disease, or unspecified chronic kidney disease; N18.9 Chronic kidney disease, unspecified; E11.51 Type 2 diabetes mellitus with diabetic peripheral angiopathy without gangrene; M19.90 Unspecified osteoarthritis, unspecified site; Z87.891 Personal history of nicotine dependence
CPT/HCPCS: 99214

== ENCOUNTER → 2017-10-06 | Outpatient (CLI) | payer MEDICARE, BC ==
[2017-09-17 14:51] VITALS: BP 120/79
== END | disposition home or self-care (01) ==
LOC: PMGWOUND 09:21
PROVIDERS: ATTEND Emergency Medicine Undersea and Hyperbaric Medicine
DX: E11.621 Type 2 diabetes mellitus with foot ulcer (principal); L97.514 Non-pressure chronic ulcer of other part of right foot with necrosis of bone; F41.9 Anxiety disorder, unspecified; E78.5 Hyperlipidemia, unspecified; F32.9 Major depressive disorder, single episode, unspecified; E11.65 Type 2 diabetes mellitus with hyperglycemia; G93.41 Metabolic encephalopathy; F03.90 Unspecified dementia, unspecified severity, without behavioral disturbance, psychotic disturbance, mood disturbance, and anxiety; I25.10 Atherosclerotic heart disease of native coronary artery without angina pectoris; M19.90 Unspecified osteoarthritis, unspecified site; E11.51 Type 2 diabetes mellitus with diabetic peripheral angiopathy without gangrene; I25.2 Old myocardial infarction; E11.22 Type 2 diabetes mellitus with diabetic chronic kidney disease; I12.9 Hypertensive chronic kidney disease with stage 1 through stage 4 chronic kidney disease, or unspecified chronic kidney disease; N18.9 Chronic kidney disease, unspecified; Z87.891 Personal history of nicotine dependence
CPT/HCPCS: 87071; 87075; 87205; 99215

== ENCOUNTER 2017-12-07 13:37 | Inpatient (IN) | payer MEDICARE, BC ==
[2017-12-07] MEDS ORDERED: VANCOMYCIN 1 GM in IV DEXTROSE 5% 250 ML IV (16:45)
[2017-12-07] MEDS: DULoxetine HCL 30 MG CAPSULE.DR PO (17:30)
[2017-12-07] MEDS: GLIMEPIRIDE 2 MG TABLET. PO (17:30)
[2017-12-07 17:31] LABS: POC GLUCOSE 330 mg/dL (70-99)
[2017-12-07 17:37] LABS: ADD MAN DIFF? NO
[2017-12-07 17:39] LABS: BASO % 0 % (0-3); EOS # 0.2 x10^3/uL (0.0-0.7); EOS % 2 % (0-3); HEMATOCRIT 32.5 % (39.0-53.0); LYMPH # 1.5 x10^3/uL (1.0-4.8); LYMPH % 17 % (24-48); MEAN CORPUSCULAR HEMOGLOBIN 29 pg (25-35); MEAN CORPUSCULAR HGB CONC 34 g/dL (31-37); MEAN CORPUSCULAR VOLUME 86 fL (79-100); MONO % 11 % (0-9); NEUT # 6.4 x10^3uL (1.8-7.7); NEUT % 71 % (31-73); PLATELET COUNT 210 x10^3/uL (140-400); RED CELL DISTRIBUTION WIDTH 14.6 % (11.5-14.5); WHITE BLOOD COUNT 9.1 x10^3/uL (4.0-11.0)
[2017-12-07 17:49] LABS: ANION GAP 7 (6-14); BLOOD UREA NITROGEN 28 mg/dL (8-26); CALCIUM 9.1 mg/dL (8.5-10.1); CARBON DIOXIDE 31 mmol/L (21-32); CHLORIDE 94 mmol/L (98-107); CREATININE 0.9 mg/dL (0.7-1.3); GFR 81.2; GLUCOSE 324 mg/dL (70-99); POTASSIUM 4.1 mmol/L (3.5-5.1); SODIUM 132 mmol/L (136-145)
[2017-12-07] MEDS: POTASSIUM CL 20MEQ-0.45% NACL 1,000 ML IV (18:02)
[2017-12-07] MEDS: VANCOMYCIN 1.75 GM in IV DEXTROSE 5% 500 ML IV (18:02)
[2017-12-07] MEDS: INSULIN ASPART 300 UNITS/3 ML INSULN.PEN SQ (18:08)
[2017-12-07] MEDS: MIDODRINE 2.5 MG TABLET PO (18:11)
[2017-12-07 19:17] LABS: BILIRUBIN,URINE NEGATIVE (NEG); CLARITY,URINE CLEAR; COLOR,URINE YELLOW; GLUCOSE,URINE >=1000 mg/dL (NEG); NITRITE,URINE NEGATIVE (NEG); PH,URINE 5.5; PROTEIN,URINE NEGATIVE (NEG-TRACE); UROBILINOGEN,URINE 0.2 mg/dL (0.2 mg/dL)
[2017-12-07 19:37] LABS: BACTERIA,URINE MANY /HPF (0-FEW); RBC,URINE 0 /HPF (0-2)
[2017-12-07 19:38] LABS: HYALINE CASTS, URINE FEW /HPF
[2017-12-07] MEDS: LACTOBACILLUS RHAMNOSUS GG 1 CAPSULE. PO (20:54)
[2017-12-07] MEDS: METOPROLOL TART IMMED RELEASE 25 MG TABLET. PO (20:54)
[2017-12-07] MEDS: HYDROcodone/APAP 5/325MG 1 TAB TABLET PO (20:54)
[2017-12-07] MEDS: ATORVASTATIN CALCIUM 10 MG TABLET. PO (20:54)
[2017-12-07 21:10] LABS: POC GLUCOSE 277 mg/dL (70-99)
[2017-12-07] MEDS: INSULIN DETEMIR 300 UNITS/3 ML INSULN.PEN. SQ (21:21)
[2017-12-08] MEDS: MIDODRINE 2.5 MG TABLET PO ×3 (07:00→17:48)
[2017-12-08] MEDS: INSULIN ASPART 300 UNITS/3 ML INSULN.PEN SQ ×4 (08:00→21:58)
[2017-12-08] MEDS: DEXTROSE 50% 25 GM / 50ML DISP.SYRIN. IV (08:48)
[2017-12-08] MEDS: LACTOBACILLUS RHAMNOSUS GG 1 CAPSULE. PO ×3 (10:05→21:51)
[2017-12-08] MEDS: DULoxetine HCL 30 MG CAPSULE.DR PO (10:06)
[2017-12-08] MEDS: METOPROLOL TART IMMED RELEASE 25 MG TABLET. PO ×2 (10:07→21:51)
[2017-12-08 10:42] LABS: POC GLUCOSE 71 mg/dL (70-99)
[2017-12-08] MEDS: POTASSIUM CHLORIDE IV (11:49)
[2017-12-08] MEDS: DEXTROSE 10% IV (11:49)
[2017-12-08] MEDS: PIPERACILLIN/TAZOBACTAM 3.375 GM in IV NORMAL SALINE 50ML 50 ML IV ×2 (11:50→17:50)
[2017-12-08 13:11] LABS: POC GLUCOSE 241 mg/dL (70-99)
[2017-12-08 13:14] LABS: POC GLUCOSE 25 mg/dL (70-99)
[2017-12-08 13:14] LABS: POC GLUCOSE 88 mg/dL (70-99)
[2017-12-08 17:05] LABS: POC GLUCOSE 362 mg/dL (70-99)
[2017-12-08] MEDS: ENOXAPARIN 40 MG/0.4 ML SYRINGE. SQ (21:00)
[2017-12-08 21:27] LABS: POC GLUCOSE 476 mg/dL (70-99)
[2017-12-08] MEDS: HYDROcodone/APAP 5/325MG 1 TAB TABLET PO (21:51)
[2017-12-08] MEDS: ATORVASTATIN CALCIUM 10 MG TABLET. PO (21:51)
[2017-12-08 22:20] LABS: MRSA BY PCR Negative (Negative)
[2017-12-09] MEDS: PIPERACILLIN/TAZOBACTAM 3.375 GM in IV NORMAL SALINE 50ML 50 ML IV ×4 (00:25→17:19)
[2017-12-09 05:18] LABS: HEMATOCRIT 29.3 % (39.0-53.0); HEMOGLOBIN 9.8 g/dL (13.0-17.5); MEAN CORPUSCULAR HEMOGLOBIN 29 pg (25-35); MEAN CORPUSCULAR HGB CONC 33 g/dL (31-37); MEAN CORPUSCULAR VOLUME 86 fL (79-100); PLATELET COUNT 203 x10^3/uL (140-400); RED BLOOD COUNT 3.41 x10^6/uL (4.30-5.70); RED CELL DISTRIBUTION WIDTH 14.9 % (11.5-14.5); WHITE BLOOD COUNT 7.8 x10^3/uL (4.0-11.0)
[2017-12-09 05:57] LABS: ANION GAP 5 (6-14); BLOOD UREA NITROGEN 28 mg/dL (8-26); CALCIUM 8.6 mg/dL (8.5-10.1); CARBON DIOXIDE 33 mmol/L (21-32); CHLORIDE 98 mmol/L (98-107); CREATININE 0.9 mg/dL (0.7-1.3); GFR 81.2; GLUCOSE 213 mg/dL (70-99); SODIUM 136 mmol/L (136-145)
[2017-12-09] MEDS ORDERED: LIDOCAINE 1% PF 2 ML VIAL. ID (07:00)
[2017-12-09] MEDS: IV RINGERS,LACTATED 1000ML 1,000 ML IV (07:00)
[2017-12-09] MEDS ORDERED: fentaNYL PF VIAL 100 MCG/2 ML VIAL IV ×2 (07:00)
[2017-12-09] MEDS ORDERED: PROCHLORPERAZINE 10 MG/2 ML VIAL. IV (07:00)
[2017-12-09] MEDS ORDERED: MORPHINE SULFATE 2 MG/ML DISP.SYRIN. IV (07:00)
[2017-12-09] MEDS ORDERED: ONDANSETRON PF 4 MG/2 ML VIAL. IV (07:00)
[2017-12-09] MEDS ORDERED: HYDROmorphone 2 MG/ML VIAL IV (07:00)
[2017-12-09] MEDS ORDERED: BACITRACIN 50,000 UNIT VIAL. IRR (07:11)
[2017-12-09 07:57] LABS: POC GLUCOSE 156 mg/dL (70-99)
[2017-12-09] MEDS: ASPIRIN ENTERIC COATED 81 MG TABLET.DR. PO (09:24)
[2017-12-09] MEDS: DULoxetine HCL 30 MG CAPSULE.DR PO (09:24)
[2017-12-09] MEDS: LACTOBACILLUS RHAMNOSUS GG 1 CAPSULE. PO ×3 (09:24→21:11)
[2017-12-09] MEDS: METOPROLOL TART IMMED RELEASE 25 MG TABLET. PO ×2 (09:25→21:11)
[2017-12-09] MEDS: MIDODRINE 2.5 MG TABLET PO ×3 (09:25→17:19)
[2017-12-09] MEDS: INSULIN ASPART 300 UNITS/3 ML INSULN.PEN SQ ×4 (09:36→21:20)
[2017-12-09 09:54] LABS: SEDIMENTATION RATE 97 (0-15)
[2017-12-09 11:00] LABS: POC GLUCOSE 193 mg/dL (70-99)
[2017-12-09] MEDS: HYDROcodone/APAP 5/325MG 1 TAB TABLET PO (13:59)
[2017-12-09 16:26] LABS: POC GLUCOSE 311 mg/dL (70-99)
[2017-12-09] MEDS: DIPHENHYDRAMINE/ZINC ACETATE 2%/0.1% TOPICAL CREAM 28GM TUBE. TP (17:19)
[2017-12-09] MEDS: ENOXAPARIN 40 MG/0.4 ML SYRINGE. SQ (21:00)
[2017-12-09] MEDS: ATORVASTATIN CALCIUM 10 MG TABLET. PO (21:11)
[2017-12-09 21:17] LABS: POC GLUCOSE 349 mg/dL (70-99)
[2017-12-10] MEDS: PIPERACILLIN/TAZOBACTAM 3.375 GM in IV NORMAL SALINE 50ML 50 ML IV ×4 (00:07→17:48)
[2017-12-10] MEDS: MIDODRINE 2.5 MG TABLET PO ×3 (06:30→17:49)
[2017-12-10 08:00] LABS: POC GLUCOSE 248 mg/dL (70-99)
[2017-12-10] MEDS: ASPIRIN ENTERIC COATED 81 MG TABLET.DR. PO (10:02)
[2017-12-10] MEDS: DULoxetine HCL 30 MG CAPSULE.DR PO (10:02)
[2017-12-10] MEDS: METOPROLOL TART IMMED RELEASE 25 MG TABLET. PO ×2 (10:04→22:34)
[2017-12-10] MEDS: LACTOBACILLUS RHAMNOSUS GG 1 CAPSULE. PO ×3 (10:04→22:33)
[2017-12-10] MEDS: INSULIN ASPART 300 UNITS/3 ML INSULN.PEN SQ ×3 (10:13→17:53)
[2017-12-10] MEDS: VANCOMYCIN 1.75 GM in IV NORMAL SALINE 500ML BAG 500 ML IV (15:22)
[2017-12-10] MEDS: VANCOMYCIN PER PHARMACY MC (16:28)
[2017-12-10 17:06] LABS: POC GLUCOSE 385 mg/dL (70-99)
[2017-12-10 20:42] LABS: POC GLUCOSE 436 mg/dL (70-99)
[2017-12-10] MEDS: ATORVASTATIN CALCIUM 10 MG TABLET. PO (22:33)
[2017-12-10] MEDS: ENOXAPARIN 40 MG/0.4 ML SYRINGE. SQ (22:35)
[2017-12-10] MEDS: INSULIN DETEMIR 300 UNITS/3 ML INSULN.PEN. SQ (22:40)
[2017-12-11] MEDS: PIPERACILLIN/TAZOBACTAM 3.375 GM in IV NORMAL SALINE 50ML 50 ML IV ×4 (00:03→18:32)
[2017-12-11] MEDS: VANCOMYCIN 1 GM in IV NORMAL SALINE 250ML 250 ML IV ×2 (02:58→13:46)
[2017-12-11] MEDS: MIDODRINE 2.5 MG TABLET PO ×3 (06:32→18:32)
[2017-12-11] MEDS: ASPIRIN ENTERIC COATED 81 MG TABLET.DR. PO (08:49)
[2017-12-11] MEDS: METOPROLOL TART IMMED RELEASE 25 MG TABLET. PO ×2 (08:49→21:27)
[2017-12-11] MEDS: DULoxetine HCL 30 MG CAPSULE.DR PO (08:49)
[2017-12-11] MEDS: LACTOBACILLUS RHAMNOSUS GG 1 CAPSULE. PO ×3 (08:49→21:24)
[2017-12-11] MEDS: INSULIN ASPART 300 UNITS/3 ML INSULN.PEN SQ ×3 (08:59→18:37)
[2017-12-11 12:10] LABS: POC GLUCOSE 289 mg/dL (70-99)
[2017-12-11] MEDS: VANCOMYCIN PER PHARMACY MC (14:45)
[2017-12-11 18:39] LABS: POC GLUCOSE 421 mg/dL (70-99)
[2017-12-11 20:24] LABS: POC GLUCOSE 293 mg/dL (70-99)
[2017-12-11] MEDS: ATORVASTATIN CALCIUM 10 MG TABLET. PO (21:24)
[2017-12-11] MEDS: ENOXAPARIN 40 MG/0.4 ML SYRINGE. SQ (21:27)
[2017-12-11] MEDS: INSULIN DETEMIR 300 UNITS/3 ML INSULN.PEN. SQ (21:32)
[2017-12-12] MEDS: PIPERACILLIN/TAZOBACTAM 3.375 GM in IV NORMAL SALINE 50ML 50 ML IV ×5 (00:36→23:49)
[2017-12-12 03:40] LABS: VANC TR 15.8 mcg/mL (10.0-20.0)
[2017-12-12] MEDS: VANCOMYCIN PER PHARMACY MC ×2 (04:01→04:02)
[2017-12-12] MEDS: VANCOMYCIN 1 GM in IV NORMAL SALINE 250ML 250 ML IV ×2 (04:21→17:45)
[2017-12-12] MEDS: MIDODRINE 2.5 MG TABLET PO ×3 (06:33→17:46)
[2017-12-12 06:56] LABS: ADD MAN DIFF? NO
[2017-12-12 07:16] LABS: BASO # 0.1 x10^3/uL (0.0-0.2); BASO % 1 % (0-3); EOS # 0.2 x10^3/uL (0.0-0.7); EOS % 2 % (0-3); HEMATOCRIT 28.8 % (39.0-53.0); HEMOGLOBIN 9.7 g/dL (13.0-17.5); LYMPH % 24 % (24-48); MEAN CORPUSCULAR HEMOGLOBIN 29 pg (25-35); MEAN CORPUSCULAR HGB CONC 34 g/dL (31-37); MEAN CORPUSCULAR VOLUME 86 fL (79-100); MONO # 0.9 x10^3/uL (0.0-1.1); MONO % 11 % (0-9); NEUT # 5.1 x10^3uL (1.8-7.7); NEUT % 62 % (31-73); PLATELET COUNT 205 x10^3/uL (140-400); RED BLOOD COUNT 3.35 x10^6/uL (4.30-5.70); RED CELL DISTRIBUTION WIDTH 14.3 % (11.5-14.5); WHITE BLOOD COUNT 8.3 x10^3/uL (4.0-11.0)
[2017-12-12 07:32] LABS: ALBUMIN 2.2 g/dL (3.4-5.0); ALBUMIN/GLOBULIN RATIO 0.5 (1.0-1.7); ALK PHOS 178 U/L (46-116); ALT (SGPT) 10 U/L (16-63); ANION GAP 6 (6-14); AST (SGOT) 14 U/L (15-37); BLOOD UREA NITROGEN 19 mg/dL (8-26); BUN/CREATININE RATIO 21 (6-20); CALCIUM 8.9 mg/dL (8.5-10.1); CARBON DIOXIDE 31 mmol/L (21-32); CHLORIDE 98 mmol/L (98-107); CREATININE 0.9 mg/dL (0.7-1.3); GFR 81.2; GLUCOSE 295 mg/dL (70-99); POTASSIUM 4.1 mmol/L (3.5-5.1); SODIUM 135 mmol/L (136-145); TOTAL BILIRUBIN 0.3 mg/dL (0.2-1.0); TOTAL PROTEIN 6.9 g/dL (6.4-8.2)
[2017-12-12] MEDS: LACTOBACILLUS RHAMNOSUS GG 1 CAPSULE. PO ×3 (08:04→21:04)
[2017-12-12] MEDS: DULoxetine HCL 30 MG CAPSULE.DR PO (08:04)
[2017-12-12] MEDS: METOPROLOL TART IMMED RELEASE 25 MG TABLET. PO ×2 (08:04→21:04)
[2017-12-12] MEDS: ASPIRIN ENTERIC COATED 81 MG TABLET.DR. PO (08:05)
[2017-12-12] MEDS: INSULIN ASPART 300 UNITS/3 ML INSULN.PEN SQ ×4 (08:12→18:15)
[2017-12-12 12:25] LABS: POC GLUCOSE 480 mg/dL (70-99)
[2017-12-12 12:25] LABS: POC GLUCOSE 275 mg/dL (70-99)
[2017-12-12] MEDS: LISINOPRIL 5 MG TABLET. PO (13:10)
[2017-12-12] MEDS: INSULIN DETEMIR 300 UNITS/3 ML INSULN.PEN. SQ ×2 (13:17→21:12)
[2017-12-12 16:03] LABS: POC GLUCOSE 443 mg/dL (70-99)
[2017-12-12 19:15] LABS: C DIFF BY PCR Negative (Negative)
[2017-12-12 20:20] LABS: POC GLUCOSE 326 mg/dL (70-99)
[2017-12-12] MEDS ORDERED: INSULIN DETEMIR 300 UNITS/3 ML INSULN.PEN. SQ (21:00)
[2017-12-12] MEDS: ATORVASTATIN CALCIUM 10 MG TABLET. PO (21:04)
[2017-12-12] MEDS: ENOXAPARIN 40 MG/0.4 ML SYRINGE. SQ (21:05)
[2017-12-12] MEDS: ZOLPIDEM 5 MG TABLET. PO (23:51)
[2017-12-12] MEDS: HYDROcodone/APAP 5/325MG 1 TAB TABLET PO (23:52)
[2017-12-13] MEDS: VANCOMYCIN 1 GM in IV NORMAL SALINE 250ML 250 ML IV ×2 (03:12→15:38)
[2017-12-13] MEDS: PIPERACILLIN/TAZOBACTAM 3.375 GM in IV NORMAL SALINE 50ML 50 ML IV ×3 (05:46→17:17)
[2017-12-13] MEDS: MIDODRINE 2.5 MG TABLET PO ×3 (08:00→17:18)
[2017-12-13] MEDS: DEXTROSE 50% 25 GM / 50ML DISP.SYRIN. IV (08:13)
[2017-12-13 08:20] LABS: POC GLUCOSE 33 mg/dL (70-99)
[2017-12-13] MEDS: INSULIN ASPART 300 UNITS/3 ML INSULN.PEN SQ ×4 (09:09→22:07)
[2017-12-13] MEDS: DULoxetine HCL 30 MG CAPSULE.DR PO (09:20)
[2017-12-13] MEDS: LACTOBACILLUS RHAMNOSUS GG 1 CAPSULE. PO ×3 (09:20→22:02)
[2017-12-13] MEDS: LISINOPRIL 5 MG TABLET. PO (09:20)
[2017-12-13] MEDS: ASPIRIN ENTERIC COATED 81 MG TABLET.DR. PO (09:20)
[2017-12-13] MEDS: METOPROLOL TART IMMED RELEASE 25 MG TABLET. PO ×2 (09:21→22:03)
[2017-12-13 10:58] LABS: POC GLUCOSE 238 mg/dL (70-99)
[2017-12-13] MEDS: ALTEPLASE 2 MG VIAL INT CAT (11:15)
[2017-12-13] MEDS: VANCOMYCIN PER PHARMACY MC (11:34)
[2017-12-13 13:08] LABS: POC GLUCOSE 152 mg/dL (70-99)
[2017-12-13 16:05] LABS: POC GLUCOSE 417 mg/dL (70-99)
[2017-12-13] MEDS: INSULIN DETEMIR 300 UNITS/3 ML INSULN.PEN. SQ ×2 (17:19→22:08)
[2017-12-13 21:30] LABS: POC GLUCOSE 487 mg/dL (70-99)
[2017-12-13] MEDS: ATORVASTATIN CALCIUM 10 MG TABLET. PO (22:02)
[2017-12-13] MEDS: ENOXAPARIN 40 MG/0.4 ML SYRINGE. SQ (22:02)
[2017-12-13] MEDS: ZOLPIDEM 5 MG TABLET. PO (22:02)
[2017-12-13] MEDS: HYDROcodone/APAP 5/325MG 1 TAB TABLET PO (22:02)
[2017-12-14] MEDS: VANCOMYCIN 1 GM in IV NORMAL SALINE 250ML 250 ML IV ×2 (02:43→15:25)
[2017-12-14 03:39] LABS: POC GLUCOSE 301 mg/dL (70-99)
[2017-12-14] MEDS: PIPERACILLIN/TAZOBACTAM 3.375 GM in IV NORMAL SALINE 50ML 50 ML IV ×4 (06:19→17:22)
[2017-12-14] MEDS: MIDODRINE 2.5 MG TABLET PO ×3 (06:24→17:21)
[2017-12-14] MEDS: INSULIN ASPART 300 UNITS/3 ML INSULN.PEN SQ ×3 (07:59→17:35)
[2017-12-14] MEDS: LISINOPRIL 10 MG TABLET PO (08:30)
[2017-12-14] MEDS: METOPROLOL TART IMMED RELEASE 25 MG TABLET. PO ×2 (08:31→21:09)
[2017-12-14] MEDS: ASPIRIN ENTERIC COATED 81 MG TABLET.DR. PO (08:31)
[2017-12-14] MEDS: LACTOBACILLUS RHAMNOSUS GG 1 CAPSULE. PO ×3 (08:31→21:08)
[2017-12-14] MEDS: DULoxetine HCL 30 MG CAPSULE.DR PO (08:32)
[2017-12-14] MEDS: HYDROcodone/APAP 5/325MG 1 TAB TABLET PO ×3 (08:33→17:21)
[2017-12-14] MEDS: INSULIN DETEMIR 300 UNITS/3 ML INSULN.PEN. SQ ×2 (09:00→17:32)
[2017-12-14 09:44] LABS: POC GLUCOSE 91 mg/dL (70-99)
[2017-12-14] MEDS: VANCOMYCIN PER PHARMACY MC (11:02)
[2017-12-14 17:35] LABS: POC GLUCOSE 326 mg/dL (70-99)
[2017-12-14 20:41] LABS: POC GLUCOSE 349 mg/dL (70-99)
[2017-12-14] MEDS: ENOXAPARIN 40 MG/0.4 ML SYRINGE. SQ (21:08)
[2017-12-14] MEDS: ATORVASTATIN CALCIUM 10 MG TABLET. PO (21:08)
[2017-12-15] MEDS: PIPERACILLIN/TAZOBACTAM 3.375 GM in IV NORMAL SALINE 50ML 50 ML IV ×5 (00:24→23:59)
[2017-12-15 02:17] LABS: HEMOGLOBIN A1C 10.7 % (4.8-5.6)
[2017-12-15] MEDS: VANCOMYCIN 1 GM in IV NORMAL SALINE 250ML 250 ML IV ×2 (02:34→16:16)
[2017-12-15] MEDS: INSULIN DETEMIR 300 UNITS/3 ML INSULN.PEN. SQ ×2 (06:00→18:34)
[2017-12-15] MEDS: MIDODRINE 2.5 MG TABLET PO ×3 (06:35→16:24)
[2017-12-15 06:46] LABS: POC GLUCOSE 70 mg/dL (70-99)
[2017-12-15 07:04] LABS: BLOOD UREA NITROGEN 21 mg/dL (8-26)
[2017-12-15 07:04] LABS: CREATININE 0.8 mg/dL (0.7-1.3)
[2017-12-15] MEDS: INSULIN ASPART 300 UNITS/3 ML INSULN.PEN SQ ×3 (08:00→18:33)
[2017-12-15 09:03] LABS: POC GLUCOSE 105 mg/dL (70-99)
[2017-12-15] MEDS: LACTOBACILLUS RHAMNOSUS GG 1 CAPSULE. PO ×3 (12:00→20:39)
[2017-12-15] MEDS: LISINOPRIL 10 MG TABLET PO (12:01)
[2017-12-15] MEDS: DULoxetine HCL 30 MG CAPSULE.DR PO (12:01)
[2017-12-15] MEDS: ASPIRIN ENTERIC COATED 81 MG TABLET.DR. PO (12:01)
[2017-12-15] MEDS: METOPROLOL TART IMMED RELEASE 25 MG TABLET. PO ×2 (12:02→20:40)
[2017-12-15 12:44] LABS: POC GLUCOSE 226 mg/dL (70-99)
[2017-12-15] MEDS: VANCOMYCIN PER PHARMACY MC (16:08)
[2017-12-15 18:20] LABS: POC GLUCOSE 358 mg/dL (70-99)
[2017-12-15] MEDS: ATORVASTATIN CALCIUM 10 MG TABLET. PO (20:39)
[2017-12-15] MEDS: ENOXAPARIN 40 MG/0.4 ML SYRINGE. SQ (20:40)
[2017-12-15 21:06] LABS: POC GLUCOSE 340 mg/dL (70-99)
[2017-12-15] MEDS: ALBUTEROL SULFATE 2.5 MG/3 ML NEBU. NEB (21:10)
[2017-12-15] MEDS: HYDROcodone/APAP 5/325MG 1 TAB TABLET PO (22:21)
[2017-12-16] MEDS: VANCOMYCIN 1 GM in IV NORMAL SALINE 250ML 250 ML IV ×2 (03:03→14:36)
[2017-12-16] MEDS: fentaNYL PF VIAL 100 MCG/2 ML VIAL IV ×6 (03:04→17:27)
[2017-12-16] MEDS: PIPERACILLIN/TAZOBACTAM 3.375 GM in IV NORMAL SALINE 50ML 50 ML IV ×3 (05:38→17:24)
[2017-12-16] MEDS: INSULIN DETEMIR 300 UNITS/3 ML INSULN.PEN. SQ ×2 (05:46→21:21)
[2017-12-16 06:47] LABS: POC GLUCOSE 60 mg/dL (70-99)
[2017-12-16] MEDS ORDERED: LIDOCAINE 1% PF 2 ML VIAL. ID (07:00)
[2017-12-16] MEDS ORDERED: fentaNYL PF VIAL 100 MCG/2 ML VIAL IV (07:00)
[2017-12-16] MEDS: MIDODRINE 2.5 MG TABLET PO ×3 (07:00→17:24)
[2017-12-16] MEDS ORDERED: ONDANSETRON PF 4 MG/2 ML VIAL. IV (07:00)
[2017-12-16] MEDS ORDERED: PROCHLORPERAZINE 10 MG/2 ML VIAL. IV (07:00)
[2017-12-16] MEDS: BACITRACIN 50,000 UNIT in IV NORMAL SALINE 500ML BAG 500 ML IRR (07:00)
[2017-12-16] MEDS: ASPIRIN ENTERIC COATED 81 MG TABLET.DR. PO (07:05)
[2017-12-16] MEDS: INSULIN ASPART 300 UNITS/3 ML INSULN.PEN SQ ×4 (07:06→22:00)
[2017-12-16] MEDS: LACTOBACILLUS RHAMNOSUS GG 1 CAPSULE. PO ×3 (07:08→21:17)
[2017-12-16] MEDS: IV RINGERS,LACTATED 1000ML 1,000 ML IV (07:08)
[2017-12-16] MEDS: LISINOPRIL 10 MG TABLET PO (07:09)
[2017-12-16] MEDS: METOPROLOL TART IMMED RELEASE 25 MG TABLET. PO ×2 (07:09→17:25)
[2017-12-16] MEDS: DULoxetine HCL 30 MG CAPSULE.DR PO (07:09)
[2017-12-16] MEDS ORDERED: PROPOFOL 20 ML IV (07:18)
[2017-12-16] MEDS ORDERED: LIDOCAINE 2% PF Vial for OR 5 ML VIAL. (07:18)
[2017-12-16] MEDS ORDERED: ONDANSETRON PF 4 MG/2 ML VIAL. (07:18)
[2017-12-16] MEDS ORDERED: fentaNYL PF VIAL 100 MCG/2 ML VIAL ×2 (07:18→09:53)
[2017-12-16] MEDS ORDERED: DEXAMETHASONE SOD PHOS 20 MG/5 ML VIAL. (07:18)
[2017-12-16] MEDS ORDERED: PHENYLEPHRINE in 0.9% NACL PF 1 MG/10 ML SYRINGE. IV (07:39)
[2017-12-16] MEDS ORDERED: SEVOFLURANE 61 TO 120 MINUTES. IH (08:44)
[2017-12-16 09:08] LABS: POC GLUCOSE 56 mg/dL (70-99)
[2017-12-16 09:26] LABS: POC GLUCOSE 76 mg/dL (70-99)
[2017-12-16] MEDS ORDERED: MORPHINE SULFATE 2 MG/ML DISP.SYRIN. (09:45)
[2017-12-16] MEDS: MORPHINE SULFATE 2 MG/ML DISP.SYRIN. IV ×2 (09:47→09:57)
[2017-12-16] MEDS ORDERED: HYDROmorphone 2 MG/ML VIAL (10:15)
[2017-12-16] MEDS: HYDROmorphone 2 MG/ML VIAL IV (10:17)
[2017-12-16 12:01] LABS: POC GLUCOSE 123 mg/dL (70-99)
[2017-12-16 12:01] LABS: POC GLUCOSE 143 mg/dL (70-99)
[2017-12-16] MEDS: VANCOMYCIN PER PHARMACY MC (12:58)
[2017-12-16] MEDS: HYDROcodone/APAP 5/325MG 1 TAB TABLET PO ×2 (14:36→21:18)
[2017-12-16 16:55] LABS: POC GLUCOSE 267 mg/dL (70-99)
[2017-12-16] MEDS: ENOXAPARIN 40 MG/0.4 ML SYRINGE. SQ (21:00)
[2017-12-16] MEDS: ATORVASTATIN CALCIUM 10 MG TABLET. PO (21:17)
[2017-12-16 22:58] LABS: POC GLUCOSE 387 mg/dL (70-99)
[2017-12-17] MEDS: PIPERACILLIN/TAZOBACTAM 3.375 GM in IV NORMAL SALINE 50ML 50 ML IV ×2 (00:30→06:15)
[2017-12-17] MEDS: VANCOMYCIN 1 GM in IV NORMAL SALINE 250ML 250 ML IV (03:07)
[2017-12-17] MEDS: HYDROcodone/APAP 5/325MG 1 TAB TABLET PO ×4 (06:15→17:22)
[2017-12-17 06:58] LABS: MEAN CORPUSCULAR HEMOGLOBIN 29 pg (25-35); MEAN CORPUSCULAR HGB CONC 34 g/dL (31-37); MEAN CORPUSCULAR VOLUME 87 fL (79-100); PLATELET COUNT 289 x10^3/uL (140-400); RED BLOOD COUNT 2.17 x10^6/uL (4.30-5.70); RED CELL DISTRIBUTION WIDTH 14.9 % (11.5-14.5); WHITE BLOOD COUNT 14.7 x10^3/uL (4.0-11.0)
[2017-12-17 07:11] LABS: ANION GAP 4 (6-14); BLOOD UREA NITROGEN 24 mg/dL (8-26); CARBON DIOXIDE 31 mmol/L (21-32); CHLORIDE 103 mmol/L (98-107); GFR 71.9; GLUCOSE 355 mg/dL (70-99); SODIUM 138 mmol/L (136-145)
[2017-12-17 07:29] LABS: HEMATOCRIT 18.8 % (39.0-53.0); HEMOGLOBIN 6.3 g/dL (13.0-17.5)
[2017-12-17 07:31] LABS: POC GLUCOSE 272 mg/dL (70-99)
[2017-12-17] MEDS: ASPIRIN ENTERIC COATED 81 MG TABLET.DR. PO (08:34)
[2017-12-17] MEDS: LACTOBACILLUS RHAMNOSUS GG 1 CAPSULE. PO ×3 (08:34→22:17)
[2017-12-17] MEDS: DULoxetine HCL 30 MG CAPSULE.DR PO (08:34)
[2017-12-17] MEDS: MIDODRINE 2.5 MG TABLET PO ×3 (08:35→17:21)
[2017-12-17] MEDS: METOPROLOL TART IMMED RELEASE 25 MG TABLET. PO ×2 (08:35→22:18)
[2017-12-17] MEDS: LISINOPRIL 10 MG TABLET PO (08:38)
[2017-12-17] MEDS: INSULIN ASPART 300 UNITS/3 ML INSULN.PEN SQ ×3 (08:47→17:24)
[2017-12-17] MEDS: INSULIN DETEMIR 300 UNITS/3 ML INSULN.PEN. SQ ×2 (08:54→22:23)
[2017-12-17 11:08] LABS: POC GLUCOSE 294 mg/dL (70-99)
[2017-12-17 11:44] LABS: IMMEDIATE SPIN CROSSMATCH 1 1
[2017-12-17] MEDS: fentaNYL PF VIAL 100 MCG/2 ML VIAL IV (14:00)
[2017-12-17 17:01] LABS: POC GLUCOSE 244 mg/dL (70-99)
[2017-12-17 20:52] LABS: POC GLUCOSE 269 mg/dL (70-99)
[2017-12-17] MEDS: ATORVASTATIN CALCIUM 10 MG TABLET. PO (22:17)
[2017-12-17] MEDS: ENOXAPARIN 40 MG/0.4 ML SYRINGE. SQ (22:20)
[2017-12-18 07:53] LABS: POC GLUCOSE 59 mg/dL (70-99)
[2017-12-18] MEDS: INSULIN DETEMIR 300 UNITS/3 ML INSULN.PEN. SQ ×3 (08:00→21:46)
[2017-12-18] MEDS: INSULIN ASPART 300 UNITS/3 ML INSULN.PEN SQ ×3 (08:34→17:49)
[2017-12-18] MEDS: HYDROcodone/APAP 5/325MG 1 TAB TABLET PO ×2 (08:35→14:48)
[2017-12-18] MEDS: ASPIRIN ENTERIC COATED 81 MG TABLET.DR. PO (08:36)
[2017-12-18] MEDS: DULoxetine HCL 30 MG CAPSULE.DR PO (08:36)
[2017-12-18] MEDS: LACTOBACILLUS RHAMNOSUS GG 1 CAPSULE. PO ×3 (08:36→21:00)
[2017-12-18] MEDS: MIDODRINE 2.5 MG TABLET PO ×3 (08:36→17:46)
[2017-12-18] MEDS: METOPROLOL TART IMMED RELEASE 25 MG TABLET. PO ×2 (08:37→21:35)
[2017-12-18] MEDS: LISINOPRIL 10 MG TABLET PO (08:37)
[2017-12-18 08:45] LABS: POC GLUCOSE 124 mg/dL (70-99)
[2017-12-18 10:51] LABS: ADD MAN DIFF? NO
[2017-12-18 10:58] LABS: BASO % 0 % (0-3); EOS # 0.2 x10^3/uL (0.0-0.7); EOS % 2 % (0-3); HEMOGLOBIN 8.4 g/dL (13.0-17.5); LYMPH # 1.8 x10^3/uL (1.0-4.8); LYMPH % 16 % (24-48); MEAN CORPUSCULAR HEMOGLOBIN 29 pg (25-35); MEAN CORPUSCULAR HGB CONC 34 g/dL (31-37); MEAN CORPUSCULAR VOLUME 88 fL (79-100); MONO # 1.2 x10^3/uL (0.0-1.1); MONO % 11 % (0-9); NEUT # 7.8 x10^3uL (1.8-7.7); NEUT % 71 % (31-73); PLATELET COUNT 240 x10^3/uL (140-400); RED BLOOD COUNT 2.85 x10^6/uL (4.30-5.70); RED CELL DISTRIBUTION WIDTH 14.7 % (11.5-14.5)
[2017-12-18 11:47] LABS: POC GLUCOSE 366 mg/dL (70-99)
[2017-12-18 17:29] LABS: POC GLUCOSE 386 mg/dL (70-99)
[2017-12-18 21:09] LABS: POC GLUCOSE 342 mg/dL (70-99)
[2017-12-18] MEDS: ATORVASTATIN CALCIUM 10 MG TABLET. PO (21:35)
[2017-12-18] MEDS: ENOXAPARIN 40 MG/0.4 ML SYRINGE. SQ (21:37)
[2017-12-19 06:42] LABS: ADD MAN DIFF? NO
[2017-12-19 06:56] LABS: BASO # 0.1 x10^3/uL (0.0-0.2); BASO % 1 % (0-3); EOS # 0.2 x10^3/uL (0.0-0.7); EOS % 3 % (0-3); HEMOGLOBIN 8.4 g/dL (13.0-17.5); LYMPH % 23 % (24-48); MEAN CORPUSCULAR HEMOGLOBIN 29 pg (25-35); MEAN CORPUSCULAR HGB CONC 32 g/dL (31-37); MEAN CORPUSCULAR VOLUME 89 fL (79-100); MONO % 12 % (0-9); NEUT # 5.3 x10^3uL (1.8-7.7); NEUT % 62 % (31-73); PLATELET COUNT 265 x10^3/uL (140-400); RED BLOOD COUNT 2.91 x10^6/uL (4.30-5.70); RED CELL DISTRIBUTION WIDTH 14.7 % (11.5-14.5); WHITE BLOOD COUNT 8.5 x10^3/uL (4.0-11.0)
[2017-12-19 08:39] LABS: POC GLUCOSE 151 mg/dL (70-99)
[2017-12-19] MEDS: LACTOBACILLUS RHAMNOSUS GG 1 CAPSULE. PO ×3 (08:46→21:38)
[2017-12-19] MEDS: ASPIRIN ENTERIC COATED 81 MG TABLET.DR. PO (08:46)
[2017-12-19] MEDS: DULoxetine HCL 30 MG CAPSULE.DR PO (08:46)
[2017-12-19] MEDS: LISINOPRIL 10 MG TABLET PO (08:47)
[2017-12-19] MEDS: METOPROLOL TART IMMED RELEASE 25 MG TABLET. PO ×2 (08:47→21:39)
[2017-12-19] MEDS: MIDODRINE 2.5 MG TABLET PO ×3 (08:48→17:46)
[2017-12-19] MEDS: INSULIN DETEMIR 300 UNITS/3 ML INSULN.PEN. SQ ×2 (09:02→21:49)
[2017-12-19] MEDS: INSULIN ASPART 300 UNITS/3 ML INSULN.PEN SQ ×5 (09:03→18:15)
[2017-12-19 12:00] LABS: POC GLUCOSE 237 mg/dL (70-99)
[2017-12-19] MEDS: HYDROcodone/APAP 5/325MG 1 TAB TABLET PO ×3 (12:59→21:55)
[2017-12-19] MEDS: fentaNYL PF VIAL 100 MCG/2 ML VIAL IV (14:28)
[2017-12-19 16:16] LABS: POC GLUCOSE 436 mg/dL (70-99)
[2017-12-19] MEDS: ATORVASTATIN CALCIUM 10 MG TABLET. PO (21:38)
[2017-12-19] MEDS: ENOXAPARIN 40 MG/0.4 ML SYRINGE. SQ (21:40)
[2017-12-19 21:49] LABS: POC GLUCOSE 291 mg/dL (70-99)
[2017-12-20] MEDS: MIDODRINE 2.5 MG TABLET PO ×3 (08:09→17:44)
[2017-12-20] MEDS: ASPIRIN ENTERIC COATED 81 MG TABLET.DR. PO (08:09)
[2017-12-20] MEDS: METOPROLOL TART IMMED RELEASE 25 MG TABLET. PO ×2 (08:09→23:00)
[2017-12-20] MEDS: DULoxetine HCL 30 MG CAPSULE.DR PO (08:09)
[2017-12-20] MEDS: LISINOPRIL 10 MG TABLET PO (08:10)
[2017-12-20] MEDS: LACTOBACILLUS RHAMNOSUS GG 1 CAPSULE. PO ×3 (08:10→22:59)
[2017-12-20] MEDS: HYDROcodone/APAP 5/325MG 1 TAB TABLET PO ×3 (08:11→23:00)
[2017-12-20] MEDS: INSULIN DETEMIR 300 UNITS/3 ML INSULN.PEN. SQ ×2 (08:18→23:10)
[2017-12-20 08:46] LABS: POC GLUCOSE 91 mg/dL (70-99)
[2017-12-20 12:26] LABS: POC GLUCOSE 289 mg/dL (70-99)
[2017-12-20] MEDS: INSULIN ASPART 300 UNITS/3 ML INSULN.PEN SQ ×3 (13:19→23:11)
[2017-12-20 16:21] LABS: POC GLUCOSE 253 mg/dL (70-99)
[2017-12-20 21:54] LABS: POC GLUCOSE 392 mg/dL (70-99)
[2017-12-20] MEDS: ATORVASTATIN CALCIUM 10 MG TABLET. PO (23:00)
[2017-12-20] MEDS: ENOXAPARIN 40 MG/0.4 ML SYRINGE. SQ (23:01)
[2017-12-21 03:36] LABS: POC GLUCOSE 315 mg/dL (70-99)
[2017-12-21 08:12] LABS: POC GLUCOSE 211 mg/dL (70-99)
[2017-12-21] MEDS: LACTOBACILLUS RHAMNOSUS GG 1 CAPSULE. PO ×3 (09:00→21:05)
[2017-12-21] MEDS: LISINOPRIL 10 MG TABLET PO (09:15)
[2017-12-21] MEDS: DULoxetine HCL 30 MG CAPSULE.DR PO (09:15)
[2017-12-21] MEDS: ASPIRIN ENTERIC COATED 81 MG TABLET.DR. PO (09:16)
[2017-12-21] MEDS: MIDODRINE 2.5 MG TABLET PO ×3 (09:16→18:07)
[2017-12-21] MEDS: METOPROLOL TART IMMED RELEASE 25 MG TABLET. PO ×2 (09:17→21:07)
[2017-12-21] MEDS: INSULIN DETEMIR 300 UNITS/3 ML INSULN.PEN. SQ ×2 (09:23→21:58)
[2017-12-21] MEDS: INSULIN ASPART 300 UNITS/3 ML INSULN.PEN SQ ×5 (09:25→18:10)
[2017-12-21 11:38] LABS: POC GLUCOSE 332 mg/dL (70-99)
[2017-12-21 17:53] LABS: POC GLUCOSE 217 mg/dL (70-99)
[2017-12-21] MEDS: ATORVASTATIN CALCIUM 10 MG TABLET. PO (21:07)
[2017-12-21] MEDS: ENOXAPARIN 40 MG/0.4 ML SYRINGE. SQ (21:08)
[2017-12-21 21:51] LABS: POC GLUCOSE 248 mg/dL (70-99)
[2017-12-22] MEDS: HYDROcodone/APAP 5/325MG 1 TAB TABLET PO ×3 (02:00→21:49)
[2017-12-22] MEDS: fentaNYL PF VIAL 100 MCG/2 ML VIAL IV ×2 (02:07→05:36)
[2017-12-22] MEDS: INSULIN ASPART 300 UNITS/3 ML INSULN.PEN SQ ×5 (08:00→17:22)
[2017-12-22 09:19] LABS: POC GLUCOSE 204 mg/dL (70-99)
[2017-12-22] MEDS: IOHEXOL 240 MG/ML 50ML VIAL. PO (09:30)
[2017-12-22] MEDS: LISINOPRIL 10 MG TABLET PO (09:31)
[2017-12-22] MEDS: MIDODRINE 2.5 MG TABLET PO ×3 (09:31→17:16)
[2017-12-22] MEDS: DULoxetine HCL 30 MG CAPSULE.DR PO (09:31)
[2017-12-22] MEDS: ASPIRIN ENTERIC COATED 81 MG TABLET.DR. PO (09:31)
[2017-12-22] MEDS: LACTOBACILLUS RHAMNOSUS GG 1 CAPSULE. PO ×3 (09:31→21:47)
[2017-12-22] MEDS: METOPROLOL TART IMMED RELEASE 25 MG TABLET. PO ×2 (09:39→21:48)
[2017-12-22] MEDS: INSULIN DETEMIR 300 UNITS/3 ML INSULN.PEN. SQ ×2 (09:45→21:56)
[2017-12-22] MEDS ORDERED: CONTRAST GIVEN MC (09:45)
[2017-12-22 13:42] LABS: POC GLUCOSE 239 mg/dL (70-99)
[2017-12-22 18:29] LABS: POC GLUCOSE 182 mg/dL (70-99)
[2017-12-22 21:19] LABS: POC GLUCOSE 203 mg/dL (70-99)
[2017-12-22] MEDS: ATORVASTATIN CALCIUM 10 MG TABLET. PO (21:48)
[2017-12-22] MEDS: ENOXAPARIN 40 MG/0.4 ML SYRINGE. SQ (21:50)
[2017-12-23] MEDS: MIDODRINE 2.5 MG TABLET PO (06:51)
[2017-12-23] MEDS: INSULIN ASPART 300 UNITS/3 ML INSULN.PEN SQ ×3 (08:00→12:57)
[2017-12-23 08:42] LABS: POC GLUCOSE 51 mg/dL (70-99)
[2017-12-23] MEDS: ASPIRIN ENTERIC COATED 81 MG TABLET.DR. PO (09:05)
[2017-12-23] MEDS: LACTOBACILLUS RHAMNOSUS GG 1 CAPSULE. PO (09:05)
[2017-12-23] MEDS: DULoxetine HCL 30 MG CAPSULE.DR PO (09:05)
[2017-12-23] MEDS: METOPROLOL TART IMMED RELEASE 25 MG TABLET. PO (09:09)
[2017-12-23] MEDS: HYDROcodone/APAP 5/325MG 1 TAB TABLET PO (09:10)
[2017-12-23] MEDS: LISINOPRIL 10 MG TABLET PO (09:10)
[2017-12-23] MEDS: INSULIN DETEMIR 300 UNITS/3 ML INSULN.PEN. SQ (09:17)
[2017-12-23 12:23] LABS: POC GLUCOSE 182 mg/dL (70-99)
== END 2017-12-23 14:19 | DRG 239 ==
LOC: 4 NORTH 13:37
PROVIDERS: Family Medicine
PROC: 0Y6H0Z1 Detachment at Right Lower Leg, High, Open Approach (ICD-10-PCS; principal; 2017-12-16 07:24)
PROC: 05H533Z Insertion of Infusion Device into Right Subclavian Vein, Percutaneous Approach (ICD-10-PCS; 2017-12-16 07:24)
PROC: 30233N1 Transfusion of Nonautologous Red Blood Cells into Peripheral Vein, Percutaneous Approach (ICD-10-PCS; 2017-12-16 07:24)
DX: E11.52 Type 2 diabetes mellitus with diabetic peripheral angiopathy with gangrene (principal); G92 Toxic encephalopathy; E11.40 Type 2 diabetes mellitus with diabetic neuropathy, unspecified; E11.621 Type 2 diabetes mellitus with foot ulcer; D62 Acute posthemorrhagic anemia; E11.622 Type 2 diabetes mellitus with other skin ulcer; L03.90 Cellulitis, unspecified; N39.0 Urinary tract infection, site not specified; M86.8X7 Other osteomyelitis, ankle and foot; E11.69 Type 2 diabetes mellitus with other specified complication; B96.89 Other specified bacterial agents as the cause of diseases classified elsewhere; E11.649 Type 2 diabetes mellitus with hypoglycemia without coma; E11.65 Type 2 diabetes mellitus with hyperglycemia; E78.00 Pure hypercholesterolemia, unspecified; E78.5 Hyperlipidemia, unspecified; F03.90 Unspecified dementia, unspecified severity, without behavioral disturbance, psychotic disturbance, mood disturbance, and anxiety; F32.9 Major depressive disorder, single episode, unspecified; I10 Essential (primary) hypertension; K21.9 Gastro-esophageal reflux disease without esophagitis; K57.90 Diverticulosis of intestine, part unspecified, without perforation or abscess without bleeding; M19.90 Unspecified osteoarthritis, unspecified site; N40.0 Benign prostatic hyperplasia without lower urinary tract symptoms; Z79.4 Long term (current) use of insulin; Z82.0 Family history of epilepsy and other diseases of the nervous system; Z82.49 Family history of ischemic heart disease and other diseases of the circulatory system; Z83.3 Family history of diabetes mellitus; Z86.14 Personal history of Methicillin resistant Staphylococcus aureus infection; Z87.440 Personal history of urinary (tract) infections; Z88.0 Allergy status to penicillin; Z90.49 Acquired absence of other specified parts of digestive tract; F41.9 Anxiety disorder, unspecified; Z88.7 Allergy status to serum and vaccine; Z91.041 Radiographic dye allergy status; D72.829 Elevated white blood cell count, unspecified
CPT/HCPCS: 36415; 36569; 71045; 74176; 80048; 80053; 80202; 81001; 82565; 82962; 83036; 84520; 85025; 85027; 85651; 86850; 86900; 86901; 86920; 87040; 87071; 87075; 87086; 87186; 87205; 87324; 87641; 88307; 88311; 93005; 94640; 94760; 97162-GP; 97166-GO; 97530-GO; 97535-GO; J0690; J1100; J1170; J1650; J1815; J2270; J2370; J2405; J2543; J2704; J2997; J3010; J3370; J3480; J3490; J7040; J7042; J7050; J7120; J7613; P9016; Q9966

== ENCOUNTER 2019-08-03 18:40 | Emergency (ER) | payer MEDICARE, BC ==
[~2019-08-03] VITALS: Ht 175.3 cm; Wt 81.6 kg
[~2019-08-03 18:40] MED LIST changes: -DULO60CA44 PO; +DULO60CA45 PO; -GLIM4TAB2 PO; +GLIM4TAB4 PO; +METF500T16 PO; -METF500T4 PO
--- NOTE | 2019-08-03 20:22 | PHYS DOC ---
Past Medical History Past Medical History: Dementia, Diabetes-Type II, Hypertension, MRSA, Prostatitis, URI, UTI, Other Additional Past Medical Histor: enlarged prostate Past Surgical History: Other Additional Past Surgical Histo: R eye sx Alcohol Use: None Drug Use: None Adult General Chief Complaint Chief Complaint: ALTERED MENTAL STATUS HPI HPI 83-year-old male presents to the emergency department with complaints of confusion, diarrhea, weakness. Patient's family history dementia, diabetes, hypertension, chronic indwelling catheter. Patient denies any chest pain, sumit rtness of breath, abdominal pain, nausea, vomiting. Daughter is at bedside was concerned with his confusion and weakness and wanted to make sure there was no acute infectious process. Nothing makes symptoms worse, nothing makes his symptoms better. Blood pressure 180/86, heart rate 85, afebrile. Review of Systems Review of Systems Constitutional: Denies fever or chills [] HENT: Denies nasal congestion or sore throat [] Respiratory: occassonial cough, no shortness of breath [] Cardiovascular: No additional information not addressed in HPI [] GI: Denies abdominal pain, nausea, vomiting, bloody stools, + diarrhea [] Musculoskeletal: Denies back pain or joint pain [] Neurologic: Denies headache, generalized weakness, no focal deficit All other systems were reviewed and found to be within normal limits, except as documented in this note. Current Medications Current Medications Current Medications Medications (Trade) Dose Ordered Sig/Chay Start Time Stop Time Status Last Admin Dose Admin Methylprednisolone Sodium Succinate (SOLU-Medrol 125MG VIAL) 125 mg 1X ONCE 08/03/19 20:30 08/03/19 20:31 DC Allergies Allergies Allergies Coded Allergies Type Severity Reaction Last Updated Verified Influenza Virus Vaccines Allergy Intermediate 05/09/17 Yes I S O L A T I O N *CONTACT* Allergy Unknown 05/12/17 Yes Physical Exam Physical Exam Constitutional: Well developed, well nourished, no acute distress, non-toxic appearance. [] HENT: Normocephalic, atraumatic, bilateral external ears normal, oropharynx moist, no oral exudates, nose normal. [] Eyes: PERRLA, EOMI, conjunctiva normal, no discharge. [] Neck: Normal range of motion, no tenderness, supple, no stridor. [] Cardiovascular:Heart rate regular rhythm, no murmur [] Lungs & Thorax: Bilateral breath sounds clear to auscultation [] Abdomen: Bowel sounds normal, soft, no tenderness, no masses, no pulsatile masses. [] Skin: Warm, dry, no erythema, no rash. [] Back: No tenderness, no CVA tenderness. [] Extremities: No tenderness, right BKA Neurologic: Alert and oriented X 3, no focal deficits noted. [] Psychologic: Affect normal, judgement normal, mood normal. [] Current Patient Data Vital Signs Vital Signs Date Time Temp Pulse Resp B/P (MAP) Pulse Ox O2 Delivery O2 Flow Rate FiO2 08/03/19 21:00 82 16 98 08/03/19 19:08 97.4 183/87 (119) Room Air 97.4 Lab Values Laboratory Tests Test 08/03/19 20:35 08/03/19 21:30 White Blood Count 7.1 x10^3/uL (4.0-11.0) Red Blood Count 4.99 x10^6/uL (4.30-5.70) Hemoglobin 13.6 g/dL (13.0-17.5) Hematocrit 41.7 % (39.0-53.0) Mean Corpuscular Volume 84 fL (79-100) Mean Corpuscular Hemoglobin 27 pg (25-35) Mean Corpuscular Hemoglobin Concent 33 g/dL (31-37) Red Cell Distribution Width 14.2 % (11.5-14.5) Platelet Count 217 x10^3/uL (140-400) Neutrophils (%) (Auto) 59 % (31-73) Lymphocytes (%) (Auto) 26 % (24-48) Monocytes (%) (Auto) 11 % (0-9) H Eosinophils (%) (Auto) 4 % (0-3) H Basophils (%) (Auto) 1 % (0-3) Neutrophils # (Auto) 4.2 x10^3/uL (1.8-7.7) Lymphocytes # (Auto) 1.8 x10^3/uL (1.0-4.8) Monocytes # (Auto) 0.8 x10^3/uL (0.0-1.1) Eosinophils # (Auto) 0.3 x10^3/uL (0.0-0.7) Basophils # (Auto) 0.1 x10^3/uL (0.0-0.2) Urine Collection Type U cath Urine Color Yellow Urine Clarity Clear Urine pH 7.0 Urine Specific [place] 1.020 Urine Protein Negative mg/dL (NEG-TRACE) Urine Glucose (UA) >=1000 mg/dL (NEG) Urine Ketones (Stick) Negative mg/dL (NEG) Urine Blood Small (NEG) Urine Nitrite Negative (NEG) Urine Bilirubin Negative (NEG) Urine Urobilinogen Dipstick 1.0 mg/dL (0.2 mg/dL) Urine Leukocyte Esterase Moderate (NEG) Urine RBC 6-10 /HPF (0-2) Urine WBC >40 /HPF (0-4) Urine Squamous Epithelial Cells Few /LPF Urine Bacteria Many /HPF (0-FEW) Sodium Level 139 mmol/L (136-145) Potassium Level 3.6 mmol/L (3.5-5.1) Chloride Level 99 mmol/L (98-107) Carbon Dioxide Level 33 mmol/L (21-32) H Anion Gap 7 (6-14) Blood Urea Nitrogen 14 mg/dL (8-26) Creatinine 1.1 mg/dL (0.7-1.3) Estimated GFR (Cockcroft-Gault) 64.1 BUN/Creatinine Ratio 13 (6-20) Glucose Level 384 mg/dL (70-99) H Calcium Level 9.2 mg/dL (8.5-10.1) Total Bilirubin 0.6 mg/dL (0.2-1.0) Aspartate Amino Transferase (AST) 13 U/L (15-37) L Alanine Aminotransferase (ALT) 12 U/L (16-63) L Alkaline Phosphatase 110 U/L (46-116) Total Protein 8.3 g/dL (6.4-8.2) H Albumin 3.1 g/dL (3.4-5.0) L Albumin/Globulin Ratio 0.6 (1.0-1.7) L Lactic Acid Level 1.3 mmol/L (0.4-2.0) Laboratory Tests 08/03/19 20:35 Laboratory Tests 08/03/19 20:35 EKG EKG [] Radiology/Procedures Radiology/Procedures [] Course & Med Decision Making Course & Med Decision Making Pertinent Labs and Imaging studies reviewed. (See chart for details) []83-year-old male presents to the emergency department with complaints of confusion, diarrhea, weakness. Patient's family history dementia, diabetes, hypertension, chronic indwelling catheter. Patient denies any chest pain, shortness of breath, abdominal pain, nausea, vomiting. Daughter is at bedside was concerned with his confusion and weakness and wanted to make sure there was no acute infectious process. Nothing makes symptoms worse, nothing makes his symptoms better. Blood pressure 180/86, heart rate 85, afebrile. Labs reviewed, lactic acid within normal limits, CBC, CMP unremarkable. Chest x- ray reveals no evidence of acute consolidation. Urine is reviewed he likely has chronic colonization however we'll treat with by mouth antibiotic therapy. Discu ssed discharge plans with patient and family at bedside. Discharge return precautions provided Dragon Disclaimer Dragon Disclaimer This electronic medical record was generated, in whole or in part, using a voice recognition dictation system. Departure Departure Impression: Primary Impression: Weakness Additional Impressions: Diarrhea UTI (urinary tract infection) Disposition: HOME, SELF-CARE Condition: STABLE Referrals: LUISITO RUSSELL MD (PCP) Patient Instructions: Catheter-Associated Urinary Tract Infection FAQs - GENTILE, Urinary Tract Infection, [id number], Weakness, [id number] Additional Instructions: Recommend follow up with PCP 3 - 5 days Return to the ER with worsening symptoms, intractable pain, fever, altered mental status Tylenol/Motrin as needed for pain Take antibioitics as directed Scripts Cephalexin (KEFLEX) 500 Mg Capsule 2 CAP PO Q12HR for 7 Days, #28 CAP Prov: MATT GRADY MD 08/03/19 Problem Qualifiers Additional Impressions: Diarrhea Diarrhea type: unspecified type Qualified Codes: R19.7 - Diarrhea, unspecified UTI (urinary tract infection) Urinary tract infection type: catheter-associated UTI Indwelling urinary catheter type: indwelling urethral catheter Encounter type: initial encounter Qualified Codes: T83.511A - Infection and inflammatory reaction due to indwelling urethral catheter, initial encounter; N39.0 - Urinary tract infection, site not specified MATT GRADY MD Aug 03, 2019 20:22
[2019-08-03] MEDS ORDERED: methylPREDNISolone SOD SUCC PF 125 MG/2 ML VIAL. IV ONE (20:30)
[2019-08-03 20:54] LABS: BILIRUBIN,URINE NEGATIVE (NEG); CLARITY,URINE CLEAR; COLOR,URINE YELLOW; NITRITE,URINE NEGATIVE (NEG); PROTEIN,URINE NEGATIVE (NEG-TRACE)
[2019-08-03 20:55] LABS: BASO # 0.1 x10^3/uL (0.0-0.2); BASO % 1 % (0-3); EOS # 0.3 x10^3/uL (0.0-0.7); EOS % 4 % (0-3); HEMATOCRIT 41.7 % (39.0-53.0); HEMOGLOBIN 13.6 g/dL (13.0-17.5); LYMPH # 1.8 x10^3/uL (1.0-4.8); LYMPH % 26 % (24-48); MEAN CORPUSCULAR HEMOGLOBIN 27 pg (25-35); MEAN CORPUSCULAR HGB CONC 33 g/dL (31-37); MEAN CORPUSCULAR VOLUME 84 fL (79-100); MONO # 0.8 x10^3/uL (0.0-1.1); MONO % 11 % (0-9); NEUT # 4.2 x10^3/uL (1.8-7.7); NEUT % 59 % (31-73); PLATELET COUNT 217 x10^3/uL (140-400); RED BLOOD COUNT 4.99 x10^6/uL (4.30-5.70); RED CELL DISTRIBUTION WIDTH 14.2 % (11.5-14.5); WHITE BLOOD COUNT 7.1 x10^3/uL (4.0-11.0)
[2019-08-03 21:06] LABS: BACTERIA,URINE MANY /HPF (0-FEW); CALCIUM 9.2 mg/dL (8.5-10.1); CREATININE 1.1 mg/dL (0.7-1.3); GFR 64.1; POTASSIUM 3.6 mmol/L (3.5-5.1); WBC,URINE >40 /HPF (0-4)
[2019-08-03 21:07] LABS: SQUAMOUS EPITHELIAL CELL,UR FEW /LPF
[2019-08-03 21:20] LABS: ALBUMIN 3.1 g/dL (3.4-5.0); ALBUMIN/GLOBULIN RATIO 0.6 (1.0-1.7); TOTAL BILIRUBIN 0.6 mg/dL (0.2-1.0); TOTAL PROTEIN 8.3 g/dL (6.4-8.2)
--- NOTE | 2019-08-03 21:26 | RAD ---
Exam: Chest one view INDICATION: Cough TECHNIQUE: Frontal view of the chest Comparisons: 12/18/2017 FINDINGS: The cardiomediastinal silhouette and pulmonary vessels are within normal limits. The lung and pleural spaces are clear. IMPRESSION: No acute cardiopulmonary process. Electronically signed by: Oscar Smart MD (08/03/2019 9:22 PM) [facility]
[2019-08-03 22:00] VITALS: BP 172/86
[2019-08-03] MEDS ORDERED: CEPH-264 PO (22:10)
[2019-09-05] MEDS ORDERED: GABA600T7 PO (17:39)
[2019-09-05] MEDS ORDERED: CARV25TA2 PO (17:47)
[2019-09-05] MEDS ORDERED: LISI40TA2 PO (17:47)
[2019-09-05] MEDS ORDERED: ALBU2.5V8 IH (17:47)
[2019-09-05] MEDS ORDERED: ASPI-630 PO (17:47)
[2019-09-05] MEDS ORDERED: ERGO500027 PO (17:47)
== END 2019-08-03 22:35 | disposition home or self-care (01) ==
LOC: ER 18:40
DX: T83.511A Infection and inflammatory reaction due to indwelling urethral catheter, initial encounter (principal); N39.0 Urinary tract infection, site not specified; R19.7 Diarrhea, unspecified; R53.1 Weakness; E11.9 Type 2 diabetes mellitus without complications; I10 Essential (primary) hypertension; Z86.14 Personal history of Methicillin resistant Staphylococcus aureus infection; Z87.440 Personal history of urinary (tract) infections; Z88.7 Allergy status to serum and vaccine; Z91.041 Radiographic dye allergy status
CPT/HCPCS: 36415; 71045; 80053; 81001; 83605; 85025; 87086; 99285; P9612

== ENCOUNTER 2019-09-04 11:33 | Emergency (ER) | payer MEDICARE, BC ==
[~2019-09-04] VITALS: Ht 177.8 cm; Wt 81.6 kg
[~2019-09-04 11:33] MED LIST changes: +CEPH-264 PO
--- NOTE | 2019-09-04 11:57 | PHYS DOC ---
Past Medical History Past Medical History: Dementia, Diabetes-Type II, Hypertension, MRSA, Prostatitis, URI, UTI, Other Additional Past Medical Histor: enlarged prostate Past Surgical History: Other Additional Past Surgical Histo: R eye sx, R BKA Alcohol Use: None Drug Use: None Adult General Chief Complaint Chief Complaint: OTHER COMPLAINTS HPI HPI Patient is an 83-year-old male who presents to the emergency department along with his daughter. The patient has a history of diabetes. His daughter noticed an ulcer on the plantar aspect of his left foot on Thursday, and thought she would wait to Thursday to get it evaluated but is anxious about it and presented to the emergency department for evaluation. The patient himself denies any pain. He has not had any fevers or chills. There has not been any purulent drainage from the wound. 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 The patient's daughter states the appearance of the Left foot wound today is about the same as it was on Thursday. She thinks she saw his foot this past Thursday and also was not present, but is uncertain when his foot was last normal. The patient otherwise has no complaints at this time. Review of Systems Review of Systems Constitutional: Denies fever or chills [] Eyes: Denies change in visual acuity, redness, or eye pain [] HENT: Denies nasal congestion or sore throat [] Respiratory: Denies cough or shortness of breath [] Cardiovascular: The patient denies any shortness of breath, chest pain, palpitations, or orthopnea [] GI: Denies abdominal pain, nausea, vomiting, bloody stools or diarrhea [] : Denies dysuria or hematuria [] Musculoskeletal: Denies back pain or joint pain [] Integument: Denies rash or skin lesions [] Neurologic: Denies headache, focal weakness or sensory changes [] Endocrine: Denies polyuria or polydipsia [] All other systems were reviewed and found to be within normal limits, except as documented in this note. Current Medications Current Medications Current Medications Medications (Trade) Dose Ordered Sig/Chay Start Time Stop Time Status Last Admin Dose Admin Doxycycline Hyclate (Vibra-Tab) 100 mg 1X ONCE 09/04/19 14:30 09/04/19 14:31 UNV Insulin Human Regular (HumuLIN R VIAL) 10 unit 1X ONCE 09/04/19 14:00 09/04/19 14:03 DC 09/04/19 14:08 10 UNIT Sodium Chloride 1,000 ml @ 1,000 mls/hr 1X ONCE 09/04/19 13:00 09/04/19 13:59 DC 09/04/19 13:05 1,000 MLS/HR Allergies Allergies Allergies Coded Allergies Type Severity Reaction Last Updated Verified Influenza Virus Vaccines Allergy Intermediate 05/09/17 Yes I S O L A T I O N *CONTACT* Allergy Unknown 05/12/17 Yes Physical Exam Physical Exam PHYSICAL EXAM: CONSTITUTIONAL: Well developed, well nourished HEAD: normocephalic, atraumatic EENT: PERRL, EOMI. Conjunctivae normal color, sclerae non-icteric; moist mucous membranes. NECK: Supple, non-tender; no meningismus. LUNGS: Lungs CTA, breathing even and unlabored. Normal air movement. HEART: Regular rate and rhythm, no murmur CHEST: No deformity; non-tender ABDOMEN: The abdomen is soft, and non-tender, no masses or bruits. EXTREM: Normal ROM; no deformity, no calf tenderness. Normal pulses palpable in all extremities. There is trace left-sided pedal edema. 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 On the plantar aspect of the left foot, there is a superficial ulcer, approximately shu size, with some mild scarring at the base of the wound, with some mild surrounding erythema. There is also some breakdown of the review the skin on the smaller area just medial to the main wound. The wound does not appear to be particularly deep. The foot is nontender.. SKIN: No rash; no diaphoresis NEURO: Alert; normal speech and cognition; CN's grossly intact; strength grossly intact without focal deficit. BACK: No CVA TTP. Current Patient Data Vital Signs Vital Signs Date Time Temp Pulse Resp B/P (MAP) Pulse Ox O2 Delivery O2 Flow Rate FiO2 09/04/19 11:57 97.7 91 17 150/70 (96) 95 Room Air 97.7 Lab Values Laboratory Tests Test 09/04/19 12:00 09/04/19 13:57 White Blood Count 5.9 x10^3/uL (4.0-11.0) Red Blood Count 4.76 x10^6/uL (4.30-5.70) Hemoglobin 13.0 g/dL (13.0-17.5) Hematocrit 40.4 % (39.0-53.0) Mean Corpuscular Volume 85 fL (79-100) Mean Corpuscular Hemoglobin 27 pg (25-35) Mean Corpuscular Hemoglobin Concent 32 g/dL (31-37) Red Cell Distribution Width 14.7 % (11.5-14.5) H Platelet Count 203 x10^3/uL (140-400) Neutrophils (%) (Auto) 59 % (31-73) Lymphocytes (%) (Auto) 29 % (24-48) Monocytes (%) (Auto) 8 % (0-9) Eosinophils (%) (Auto) 3 % (0-3) Basophils (%) (Auto) 1 % (0-3) Neutrophils # (Auto) 3.5 x10^3/uL (1.8-7.7) Lymphocytes # (Auto) 1.7 x10^3/uL (1.0-4.8) Monocytes # (Auto) 0.5 x10^3/uL (0.0-1.1) Eosinophils # (Auto) 0.2 x10^3/uL (0.0-0.7) Basophils # (Auto) 0.0 x10^3/uL (0.0-0.2) Erythrocyte Sedimentation Rate 50 (0-15) H Sodium Level 135 mmol/L (136-145) L Potassium Level 3.1 mmol/L (3.5-5.1) L Chloride Level 96 mmol/L (98-107) L Carbon Dioxide Level 33 mmol/L (21-32) H Anion Gap 6 (6-14) Blood Urea Nitrogen 16 mg/dL (8-26) Creatinine 1.2 mg/dL (0.7-1.3) Estimated GFR (Cockcroft-Gault) 58.0 Glucose Level 470 mg/dL (70-99) H Lactic Acid Level 2.5 mmol/L (0.4-2.0) H Calcium Level 8.6 mg/dL (8.5-10.1) C-Reactive Protein, Quantitative 74.7 mg/L (0-3.3) H Glucose (Fingerstick) 390 mg/dL (70-99) H Laboratory Tests 09/04/19 12:00 Laboratory Tests 09/04/19 12:00 EKG EKG [] Radiology/Procedures Radiology/Procedures PROCEDURE: FOOT LEFT 3V Left foot x-rays 3 views HISTORY: Left foot ulcer. FINDINGS: Ulceration and soft tissue swelling along the plantar foot overlying the MTP joints. There is no periosteal reaction or lytic bone destruction to localize a site of osteomyelitis. There is a fracture of the fourth toe proximal phalanx shaft with mild bony scarring margins of indeterminate age. Spur the plantar calcaneus. MR imaging has greater sensitivity for detecting osteomyelitis. IMPRESSION: Ulcer of the plantar foot overlying the MTP joints. No radiographic changes of osteomyelitis. Age-indeterminate fracture of the fourth toe proximal phalanx.[] Course & Med Decision Making Course & Med Decision Making Pertinent Labs and Imaging studies reviewed. (See chart for details) [] 2:25 PM: The patient's condition remains stable. He'll be given a second dose of insulin, after his first 10 units of insulin his blood sugar remains 391. The patient's daughter states she lives with the patient and does help care for him and monitor his blood sugar regularly. I discussed with the patient's daughter the importance of close glycemic monitoring, and using the insulin sliding scale which she states she has at home as needed. I discussed the case with the patient's PCP, Dr. Russell. The patient certainly is at risk for osteomyelitis, but other than his elevated CRP there is no significant evidence of deep wound of bony infection at this time. He certainly warrants further evaluation, but both myself and the patient's PCP, as well as his daughter feel that this can be done as an outpatient. I discussed importance of close follow-up with his PCP tomorrow, and the daughter is to call for further outpatient appointments tomorrow, he has been seen in the wound care center in the past and I also encouraged the patient's daughter to have the patient followed up there as well. Return precautions were discussed in detail. Dragon Disclaimer Dragon Disclaimer This electronic medical record was generated, in whole or in part, using a voice recognition dictation system. Departure Departure Impression: Primary Impression: Diabetic foot infection Additional Impression: Hyperglycemia Disposition: 01 HOME, SELF-CARE Referrals: LUISITO RUSSELL MD (PCP) Patient Instructions: Diabetes and Foot Care, Hyperglycemia Additional Instructions: Contact Dr. Russell tomorrow to arrange further outpatient evaluation. Further testing and treatment is warranted for further evaluation and treatment of the foot infection and wound. Scripts Doxycycline Hyclate (DOXYCYCLINE HYCLATE) 100 Mg Tablet 1 TAB PO BID, #20 TAB Prov: RADHA DURHAM MD 09/04/19 Problem Qualifiers RADHA DURHAM MD Sep 04, 2019 11:57
[2019-09-04 12:15] LABS: BASO % 1 % (0-3); EOS # 0.2 x10^3/uL (0.0-0.7); EOS % 3 % (0-3); HEMATOCRIT 40.4 % (39.0-53.0); LYMPH # 1.7 x10^3/uL (1.0-4.8); LYMPH % 29 % (24-48); MEAN CORPUSCULAR HEMOGLOBIN 27 pg (25-35); MEAN CORPUSCULAR HGB CONC 32 g/dL (31-37); MEAN CORPUSCULAR VOLUME 85 fL (79-100); MONO # 0.5 x10^3/uL (0.0-1.1); MONO % 8 % (0-9); NEUT # 3.5 x10^3/uL (1.8-7.7); NEUT % 59 % (31-73); PLATELET COUNT 203 x10^3/uL (140-400); RED BLOOD COUNT 4.76 x10^6/uL (4.30-5.70); RED CELL DISTRIBUTION WIDTH 14.7 % (11.5-14.5); WHITE BLOOD COUNT 5.9 x10^3/uL (4.0-11.0)
[2019-09-04 12:20] LABS: CALCIUM 8.6 mg/dL (8.5-10.1); CREATININE 1.2 mg/dL (0.7-1.3); POTASSIUM 3.1 mmol/L (3.5-5.1)
[2019-09-04 12:23] LABS: C-REACTIVE PROTEIN 74.7 mg/L (0-3.3)
--- NOTE | 2019-09-04 12:35 | RAD ---
Left foot x-rays 3 views HISTORY: Left foot ulcer. FINDINGS: Ulceration and soft tissue swelling along the plantar foot overlying the MTP joints. There is no periosteal reaction or lytic bone destruction to localize a site of osteomyelitis. There is a fracture of the fourth toe proximal phalanx shaft with mild bony scarring margins of indeterminate age. Spur the plantar calcaneus. MR imaging has greater sensitivity for detecting osteomyelitis. IMPRESSION: Ulcer of the plantar foot overlying the MTP joints. No radiographic changes of osteomyelitis. Age-indeterminate fracture of the fourth toe proximal phalanx. Electronically signed by: Andrea Gallego MD (09/04/2019 12:32 PM) [facility]
[2019-09-04] MEDS ORDERED: IV NORMAL SALINE 1000ML BAG 1,000 ML IV ONE (13:00)
[2019-09-04] MEDS ORDERED: INSULIN REGULAR 100 UNIT/ML 3ML VIAL. IV ONE ×2 (13:00→14:00)
[2019-09-04 14:15] VITALS: BP 129/66
[2019-09-04] MEDS ORDERED: DOXYCYCLINE HYCLATE 100 MG TABLET PO ONE (14:30)
[2019-09-04] MEDS ORDERED: DOXY100T PO (14:35)
[2019-09-05] MEDS ORDERED: GABA600T7 PO (17:39)
[2019-09-05] MEDS ORDERED: ALBU2.5V8 IH (17:47)
[2019-09-05] MEDS ORDERED: CARV25TA2 PO (17:47)
[2019-09-05] MEDS ORDERED: ERGO500027 PO (17:47)
[2019-09-05] MEDS ORDERED: LISI40TA2 PO (17:47)
[2019-09-05] MEDS ORDERED: ASPI-630 PO (17:47)
== END 2019-09-04 14:52 | disposition home or self-care (01) ==
LOC: ER 11:33
DX: E11.621 Type 2 diabetes mellitus with foot ulcer (principal); E11.65 Type 2 diabetes mellitus with hyperglycemia; L97.521 Non-pressure chronic ulcer of other part of left foot limited to breakdown of skin; Z79.4 Long term (current) use of insulin; I10 Essential (primary) hypertension; E11.9 Type 2 diabetes mellitus without complications; F03.90 Unspecified dementia, unspecified severity, without behavioral disturbance, psychotic disturbance, mood disturbance, and anxiety; N40.0 Benign prostatic hyperplasia without lower urinary tract symptoms; Z87.440 Personal history of urinary (tract) infections; Z88.7 Allergy status to serum and vaccine; Z91.041 Radiographic dye allergy status
CPT/HCPCS: 99285; J1815; J7030; 36415; 73630; 80048; 82962; 83605; 85025; 85651; 86140; 87040; 87070; 87205; 96361; 96374; 96376

== ENCOUNTER 2019-09-24 11:07 | Emergency (ER) | payer MEDICARE, BC ==
[~2019-09-24] VITALS: Ht 172.7 cm; Wt 72.6 kg
[~2019-09-24 11:07] MED LIST changes: +ALBU2.5V8 IH; +ASPI-630 PO; +CARV25TA2 PO; +DOXY100T PO; +ERGO500027 PO; +GABA600T7 PO; +LISI40TA2 PO
[2019-09-24 11:48] LABS: BASO # 0.1 x10^3/uL (0.0-0.2); BASO % 1 % (0-3); EOS # 0.3 x10^3/uL (0.0-0.7); EOS % 4 % (0-3); HEMATOCRIT 43.3 % (39.0-53.0); HEMOGLOBIN 14.2 g/dL (13.0-17.5); LYMPH # 2.4 x10^3/uL (1.0-4.8); LYMPH % 28 % (24-48); MEAN CORPUSCULAR HEMOGLOBIN 28 pg (25-35); MEAN CORPUSCULAR HGB CONC 33 g/dL (31-37); MEAN CORPUSCULAR VOLUME 84 fL (79-100); MONO # 0.7 x10^3/uL (0.0-1.1); MONO % 8 % (0-9); NEUT # 5.2 x10^3/uL (1.8-7.7); NEUT % 60 % (31-73); PLATELET COUNT 215 x10^3/uL (140-400); RED BLOOD COUNT 5.15 x10^6/uL (4.30-5.70); RED CELL DISTRIBUTION WIDTH 15.7 % (11.5-14.5); WHITE BLOOD COUNT 8.7 x10^3/uL (4.0-11.0)
[2019-09-24 11:57] LABS: GFR 71.5; POTASSIUM 4.6 mmol/L (3.5-5.1)
[2019-09-24 12:03] LABS: ALBUMIN 3.5 g/dL (3.4-5.0); ALBUMIN/GLOBULIN RATIO 0.7 (1.0-1.7); MAGNESIUM 2.1 mg/dL (1.8-2.4); TOTAL BILIRUBIN 0.4 mg/dL (0.2-1.0); TOTAL PROTEIN 8.2 g/dL (6.4-8.2)
--- NOTE | 2019-09-24 12:40 | PHYS DOC ---
Past Medical History Past Medical History: Dementia, Diabetes-Type II, Hypertension, MRSA, Prostatitis, URI, UTI, Other Additional Past Medical Histor: enlarged prostate Past Surgical History: Other Additional Past Surgical Histo: R eye sx Alcohol Use: None Drug Use: None Adult General Chief Complaint Chief Complaint: HYPOGLYCEMIA HPI HPI Patient is an 83-year-old male who presents with report of hypoglycemic episode. Patient was found to be 27 at the nursing facility and patient was given glucose and ultimately blood sugar had come up. Ultimately blood sugar had come up to 121. Patient reportedly had initially been a bit combative. EMS state that nursing facility had reported that patient was unresponsive but when they were asked why they didn't check a blood sugar on patient, they stated that patient wouldn't let them. They further indicate that when patient's blood sugar had returned to normal that initially the plan was to keep patient at nursing facility but then they found that patient had defecated in his depend and at that point they decided they needed to have patient sent to ER for further evaluation.[] Review of Systems Review of Systems Constitutional: Denies fever or chills [] Respiratory: Denies cough or shortness of breath [] Cardiovascular: No additional information not addressed in HPI [] GI: Denies abdominal pain, nausea, vomiting or diarrhea [] Musculoskeletal: Denies back pain or joint pain [] Integument: Denies rash or skin lesions [] Neurologic: Denies headache, focal weakness or sensory changes [] All other systems were reviewed and found to be within normal limits, except as documented in this note. Current Medications Current Medications Current Medications Medications (Trade) Dose Ordered Sig/[facility] Start Time Stop Time Status Last Admin Dose Admin Ceftriaxone Sodium (Rocephin) 1 gm 1X ONCE 09/24/19 14:00 09/24/19 14:01 DC Allergies Allergies Allergies Coded Allergies Type Severity Reaction Last Updated Verified Influenza Virus Vaccines Allergy Intermediate 05/09/17 Yes I S O L A T I O N *CONTACT* Allergy Unknown 05/12/17 Yes Physical Exam Physical Exam Constitutional: Well developed, well nourished, no acute distress, non-toxic appearance. [] HENT: Normocephalic, atraumatic, bilateral external ears normal, oropharynx moist, no oral exudates, nose normal. [] Eyes: PERRLA, EOMI, conjunctiva normal, no discharge. [] Neck: Normal range of motion, no tenderness, supple, no stridor. [] Cardiovascular: Regular rate and rhythm[] Lungs & Thorax: Bilateral breath sounds clear to auscultation [] Abdomen: Bowel sounds normal, soft, no tenderness. [] Skin: Warm, dry, no erythema, no rash. [] Extremities: No tenderness, no cyanosis, no clubbing. There is a right below the knee amputation noted. [] Neurologic: Awake and alert, no focal deficits noted. [] Current Patient Data Vital Signs Vital Signs Date Time Temp Pulse Resp B/P (MAP) Pulse Ox O2 Delivery O2 Flow Rate FiO2 09/24/19 11:20 97.0 70 18 162/76 (104) 96 Room Air 97.0 Lab Values Laboratory Tests Test 09/24/19 11:38 09/24/19 12:20 09/24/19 13:00 09/24/19 13:23 White Blood Count 8.7 x10^3/uL (4.0-11.0) Red Blood Count 5.15 x10^6/uL (4.30-5.70) Hemoglobin 14.2 g/dL (13.0-17.5) Hematocrit 43.3 % (39.0-53.0) Mean Corpuscular Volume 84 fL (79-100) Mean Corpuscular Hemoglobin 28 pg (25-35) Mean Corpuscular Hemoglobin Concent 33 g/dL (31-37) Red Cell Distribution Width 15.7 % (11.5-14.5) H Platelet Count 215 x10^3/uL (140-400) Neutrophils (%) (Auto) 60 % (31-73) Lymphocytes (%) (Auto) 28 % (24-48) Monocytes (%) (Auto) 8 % (0-9) Eosinophils (%) (Auto) 4 % (0-3) H Basophils (%) (Auto) 1 % (0-3) Neutrophils # (Auto) 5.2 x10^3/uL (1.8-7.7) Lymphocytes # (Auto) 2.4 x10^3/uL (1.0-4.8) Monocytes # (Auto) 0.7 x10^3/uL (0.0-1.1) Eosinophils # (Auto) 0.3 x10^3/uL (0.0-0.7) Basophils # (Auto) 0.1 x10^3/uL (0.0-0.2) Sodium Level 141 mmol/L (136-145) Potassium Level 4.6 mmol/L (3.5-5.1) Chloride Level 102 mmol/L (98-107) Carbon Dioxide Level 30 mmol/L (21-32) Anion Gap 9 (6-14) Blood Urea Nitrogen 27 mg/dL (8-26) H Creatinine 1.0 mg/dL (0.7-1.3) Estimated GFR (Cockcroft-Gault) 71.5 BUN/Creatinine Ratio 27 (6-20) H Glucose Level 66 mg/dL (70-99) L Calcium Level 9.0 mg/dL (8.5-10.1) Magnesium Level 2.1 mg/dL (1.8-2.4) Total Bilirubin 0.4 mg/dL (0.2-1.0) Aspartate Amino Transferase (AST) 27 U/L (15-37) Alanine Aminotransferase (ALT) 15 U/L (16-63) L Alkaline Phosphatase 137 U/L (46-116) H Troponin I Quantitative 0.040 ng/mL (0.000-0.055) 0.031 ng/mL (0.000-0.055) Total Protein 8.2 g/dL (6.4-8.2) Albumin 3.5 g/dL (3.4-5.0) Albumin/Globulin Ratio 0.7 (1.0-1.7) L Ammonia < 10 mcmol/L (11-34) L Urine Collection Type Unknown Urine Color Yellow Urine Clarity Clear Urine pH 7.0 Urine Specific Manter 1.010 Urine Protein Negative mg/dL (NEG-TRACE) Urine Glucose (UA) 100 mg/dL (NEG) Urine Ketones (Stick) Negative mg/dL (NEG) Urine Blood Trace (NEG) Urine Nitrite Negative (NEG) Urine Bilirubin Negative (NEG) Urine Urobilinogen Dipstick 0.2 mg/dL (0.2 mg/dL) Urine Leukocyte Esterase Large (NEG) Urine RBC 0 /HPF (0-2) Urine WBC Tntc /HPF (0-4) Urine Bacteria 0 /HPF (0-FEW) Urine Yeast Present /HPF Laboratory Tests 09/24/19 11:38 Laboratory Tests 09/24/19 11:38 EKG EKG [] Radiology/Procedures Radiology/Procedures [] Course & Med Decision Making Course & Med Decision Making Pertinent Labs and Imaging studies reviewed. (See chart for details) [] Dragon Disclaimer Dragon Disclaimer This electronic medical record was generated, in whole or in part, using a voice recognition dictation system. Departure Departure Impression: Primary Impression: Hypoglycemia Additional Impression: UTI (urinary tract infection) Disposition: HOME, SELF-CARE Condition: STABLE Referrals: LUISITO RUSSELL MD (PCP) Patient Instructions: Hypoglycemia (Low Blood Sugar), Urinary Tract Infection Scripts Nitrofurantoin Monohyd/M-Cryst (MACROBID 100 MG CAPSULE) 100 Mg Capsule 1 CAP PO BID for 7 Days, #14 CAP 0 Refills Prov: RYLAN DAWN Jr., DO 09/24/19 Problem Qualifiers Additional Impression: UTI (urinary tract infection) Urinary tract infection type: site unspecified Hematuria presence: without hematuria Qualified Codes: N39.0 - Urinary tract infection, site not specified RYLAN DAWN Jr. DO Sep 24, 2019 12:40
[2019-09-24 13:15] LABS: BILIRUBIN,URINE NEGATIVE (NEG); CLARITY,URINE CLEAR; COLOR,URINE YELLOW; NITRITE,URINE NEGATIVE (NEG); PROTEIN,URINE NEGATIVE (NEG-TRACE); UROBILINOGEN,URINE 0.2 mg/dL (0.2 mg/dL)
[2019-09-24 13:22] LABS: BACTERIA,URINE 0 /HPF (0-FEW); RBC,URINE 0 /HPF (0-2); WBC,URINE TNTC /HPF (0-4); YEAST,URINE PRESENT /HPF
[2019-09-24] MEDS ORDERED: cefTRIAXone IV Push 1 GM VIAL. IVP ONE (14:00)
[2019-09-24] MEDS ORDERED: NITR100C62 PO (14:24)
[2019-09-24 18:36] VITALS: BP 180/84
--- NOTE | 2019-09-25 06:34 | EKG ---
[facility] [address] [place] [address] Test Date: 2019-09-24 Test Time: 11:32:50 Pat Name: MICKY SAAVEDRA Department: Room: Gender: M Pattern Changer: : 1935 Requested By: RYLAN DAWN Order Number: [id number] Reading MD: Vinod Gaona Measurements Intervals [place] Rate: 68 P: AK: QRS: -26 QRSD: 106 T: 156 QT: 410 QTc: 436 Interpretive Statements SINUS RHYTHM LEFTWARD AXIS QRS(T) CONTOUR ABNORMALITY CONSIDER ANTEROLATERAL MYOCARDIAL DAMAGE POSSIBLY ABNORMAL ECG Electronically Signed On 09-26-2019 14:30:46 [employer] by Vinod Gaona
== END 2019-09-24 18:56 | disposition home or self-care (01) ==
LOC: ER 11:07
DX: E11.649 Type 2 diabetes mellitus with hypoglycemia without coma (principal); N39.0 Urinary tract infection, site not specified; I10 Essential (primary) hypertension; F03.90 Unspecified dementia, unspecified severity, without behavioral disturbance, psychotic disturbance, mood disturbance, and anxiety; Z91.041 Radiographic dye allergy status; Z88.7 Allergy status to serum and vaccine
CPT/HCPCS: 36415; 80053; 81001; 82140; 83735; 84484; 85025; 87086; 93005; 96374; 99285; J0696

== ENCOUNTER 2020-03-20 17:36 | Emergency (ER) | payer MEDICARE, BC ==
[~2020-03-20] VITALS: Ht 175.3 cm; Wt 72.7 kg
[~2020-03-20 17:36] MED LIST changes: +CEFTRIAXONE SODIUM IVP; +CEPH250C PO; -GLIM4TAB4 PO; +GLIM4TAB8 PO; +INSU100V6 SQ; +ISOS30TA4 PO; +NITR100C62 PO
[2020-03-20] MEDS ORDERED: IV NORMAL SALINE 500ML BAG 500 ML IV ONE (18:15)
--- NOTE | 2020-03-20 18:16 | PHYS DOC ---
Past Medical History Past Medical History: Dementia, Diabetes-Type II, Hypertension, MRSA, Pro statitis, URI, UTI, Other Additional Past Medical Histor: enlarged prostate Past Surgical History: Other Additional Past Surgical Histo: R eye sx Smoking Status: Former Smoker Alcohol Use: None Drug Use: None General Adult EDM: Chief Complaint: ABDOMINAL PAIN HPI: HPI: 84-year-old male significant history of hypertension, diabetes mellitus, dementia, BPH, who presents for evaluation of lower abdominal pain of unclear duration. He however states that his lower abdominal discomfort has somewhat improved by time of my evaluation. No nausea vomiting, diarrhea. He has a indwelling Marley catheter in the setting of known BPH. Review of Systems: Review of Systems: Gen: No fever, chills. ENT: No nasal congestion, sore throat. CV: No CP. Resp. No SOB, cough. GI: No N/V. Reports abdominal pain. : No dysuria, hematuria. Neuro: No HODGE, dizziness MSK: No myalgia, arthralgia, back pain. Heart Score: Risk Factors: Risk Factors: DM, Current or recent (<one month) smoker, HTN, HLP, family history of CAD, obesity. Risk Scores: Score 0 - 3: 2.5% MACE over next 6 weeks - Discharge Home Score 4 - 6: 20.3% MACE over next 6 weeks - Admit for Clinical Observation Score 7 - 10: 72.7% MACE over next 6 weeks - Early Invasive Strategies Allergies: Allergies: Allergies Coded Allergies Type Severity Reaction Last Updated Verified Influenza Virus Vaccines Allergy Intermediate 05/09/17 Yes I S O L A T I O N *CONTACT* Allergy Unknown 05/12/17 Yes Physical Exam: PE: Gen: NAD. Head: NC/AT. Eyes: No scleral icterus. No conjunctival injection. ENT: MMM. Posterior OP clear. Neck: Supple. NT. CV: RRR. Peripheral pulses intact. Resp: CTAB. Abd: Soft. ND. No focal tenderness. No rebound, guarding, rigidity. : Indwelling Marley catheter with chronic appearing horizontal opening at meatus through distal body of glans. MSK: No peripheral cyanosis. Neuro: Awake and alert. Skin. Warm. Dry. Psych: Appropriate mood & affect. EKG: EKG: [] Radiology/Procedures: Radiology/Procedures: Exam: CT of abdomen and pelvis with contrast INDICATION: Lower abdominal pain TECHNIQUE: Sequential axial images through the abdomen and pelvis obtained following the administration of 75 mL of Omni 300 IV contrast. Sagittal and coronal reformatted images were reconstructed from the axial data and reviewed. Comparisons: 12/25/2019 FINDINGS: Heart size is normal. No pericardial effusion. Visualized lung bases are clear. No pleural effusion. Liver, spleen, pancreas, and adrenals are unremarkable. Gallbladder is distended with gallstones. Kidneys demonstrate symmetric enhancement. No perinephric inflammation or hydronephrosis. No renal or ureteral calculi are identified. Bladder is decompressed not well evaluated. Marley balloon noted within the bladder. There is mild perivesicular fat stranding is noted. Large and small bowel are unremarkable. Appendix is normal. No free intra-abdominal air or fluid. No obstruction. Abdominal aorta has a normal course and caliber. Abdominal vasculature is patent. Several enlarged retroperitoneal lymph nodes are noted, largest is a left periaortic lymph node measuring approximately 2.8 cm. No suspicious osseous lesions or acute fractures. IMPRESSION: 1. Diffuse wall thickening of the bladder, correlate with urinalysis. 2. Numerous enlarged intraperitoneal lymph nodes which are uncertain in etiology. Correlate with malignancy history. Short-term follow-up CT is recommended in 2-3 months to reassess. Course & Med Decision Making: Course & Med Decision Making Pertinent Labs and Imaging studies reviewed. (See chart for details) In summary, 84-year-old male who presents for evaluation of lower abdominal discomfort, found to have a urinary tract infection and a minimally contaminated sample, with the presence of funguria, receiving IV Rocephin 1 g as well as oral Diflucan 150 mg. Remains well-appearing and nontoxic. The patient does have a horizontal chronic appearing opening to the penis at the meatus and through the glans, confirmed to be an old finding. Currently awaiting CT abdomen/pelvis to evaluate for alternative pathology as well. 1941: CTAP with bladder thickening and peritoneal lymph nodes that will require outpatient evaluation. Remains well appearing and nontoxic. Will DC with vantin 100 mg BID x10 days. Edilson Disclaimer: Edilson Disclaimer: This electronic medical record was generated, in whole or in part, using a voice recognition dictation system. Departure Departure Impression: Primary Impression: UTI (urinary tract infection) Additional Impression: Fungus present in urine Disposition: HOME, SELF-CARE Condition: STABLE Referrals: LUISITO RUSSELL MD (PCP) Patient Instructions: Urinary Tract Infection Additional Instructions: You have a urinary tract infection. You received an antibiotic in the ER today. Your urine also have yeast, for which you received a one time dose of a yeast medication in the ER. Please fill the prescriptions and take all of the prescribed antibiotic. Please follow up with your doctor. Your CT abdomen/pelvis today had some enlarge lymph nodes, which may be cause by your urine infection, but please follow up with your doctor regarding this finding for further monitoring and/or investigation. Return to the ER if you develop new or worsening symptoms. Scripts Ondansetron (ONDANSETRON ODT) 4 Mg Tab.rapdis 1 TAB PO PRN Q6-8HRS, #12 TAB Prov: LE,BAR H DO 03/20/20 Cefpodoxime Proxetil (CEFPODOXIME PROXETIL) 100 Mg Tablet 100 MG PO BID for UTI for 10 Days, #20 TAB Prov: LE,BAR H DO 03/20/20 LE,BAR H DO March 20, 2020 18:16
[2020-03-20 18:28] LABS: BASO # 0.1 x10^3/uL (0.0-0.2); BASO % 1 % (0-3); EOS # 0.4 x10^3/uL (0.0-0.7); EOS % 5 % (0-3); HEMATOCRIT 39.2 % (39.0-53.0); HEMOGLOBIN 12.9 g/dL (13.0-17.5); LYMPH # 1.9 x10^3/uL (1.0-4.8); LYMPH % 24 % (24-48); MEAN CORPUSCULAR HEMOGLOBIN 27 pg (25-35); MEAN CORPUSCULAR HGB CONC 33 g/dL (31-37); MEAN CORPUSCULAR VOLUME 83 fL (79-100); MONO # 0.8 x10^3/uL (0.0-1.1); MONO % 11 % (0-9); NEUT # 4.7 x10^3/uL (1.8-7.7); NEUT % 59 % (31-73); PLATELET COUNT 223 x10^3/uL (140-400); RED BLOOD COUNT 4.71 x10^6/uL (4.30-5.70); RED CELL DISTRIBUTION WIDTH 14.9 % (11.5-14.5); WHITE BLOOD COUNT 7.9 x10^3/uL (4.0-11.0)
[2020-03-20 18:37] LABS: PROTHROMBIN TIME PATIENT 13.4 SEC (11.7-14.0)
[2020-03-20 18:40] LABS: CALCIUM 8.9 mg/dL (8.5-10.1); CREATININE 1.1 mg/dL (0.7-1.3); GFR 63.9; POTASSIUM 4.1 mmol/L (3.5-5.1)
[2020-03-20 18:45] LABS: ALBUMIN 3.3 g/dL (3.4-5.0); ALBUMIN/GLOBULIN RATIO 0.6 (1.0-1.7); TOTAL BILIRUBIN 0.4 mg/dL (0.2-1.0); TOTAL PROTEIN 9.1 g/dL (6.4-8.2)
[2020-03-20 18:50] LABS: BILIRUBIN,URINE NEGATIVE (NEG); CLARITY,URINE CLOUDY; COLOR,URINE YELLOW; NITRITE,URINE POSITIVE (NEG); PH,URINE 8.5 (<5.0-8.0); PROTEIN,URINE NEGATIVE (NEG-TRACE); UROBILINOGEN,URINE 0.2 mg/dL (0.2 mg/dL)
[2020-03-20 18:58] LABS: BACTERIA,URINE MANY /HPF (0-FEW); RBC,URINE 0 /HPF (0-2); YEAST,URINE PRESENT /HPF
[2020-03-20] MEDS ORDERED: IOHEXOL 300 MG/ML 100ML VIAL. IV ONE (19:00)
[2020-03-20] MEDS ORDERED: CONTRAST GIVEN. MC PRN (19:00)
[2020-03-20] MEDS ORDERED: cefTRIAXone IV Push 1 GM VIAL. IVP ONE (19:15)
[2020-03-20] MEDS ORDERED: FLUCONAZOLE 100 MG TABLET. PO ONE (19:15)
[2020-03-20 19:30] VITALS: BP 114/56
--- NOTE | 2020-03-20 19:39 | RAD ---
Exam: CT of abdomen and pelvis with contrast INDICATION: Lower abdominal pain TECHNIQUE: Sequential axial images through the abdomen and pelvis obtained following the administration of 75 mL of Omni 300 IV contrast. Sagittal and coronal reformatted images were reconstructed from the axial data and reviewed. Comparisons: 12/25/2019 FINDINGS: Heart size is normal. No pericardial effusion. Visualized lung bases are clear. No pleural effusion. Liver, spleen, pancreas, and adrenals are unremarkable. Gallbladder is distended with gallstones. Kidneys demonstrate symmetric enhancement. No perinephric inflammation or hydronephrosis. No renal or ureteral calculi are identified. Bladder is decompressed not well evaluated. Marley balloon noted within the bladder. There is mild perivesicular fat stranding is noted. Large and small bowel are unremarkable. Appendix is normal. No free intra-abdominal air or fluid. No obstruction. Abdominal aorta has a normal course and caliber. Abdominal vasculature is patent. Several enlarged retroperitoneal lymph nodes are noted, largest is a left periaortic lymph node measuring approximately 2.8 cm. No suspicious osseous lesions or acute fractures. IMPRESSION: 1. Diffuse wall thickening of the bladder, correlate with urinalysis. 2. Numerous enlarged intraperitoneal lymph nodes which are uncertain in etiology. Correlate with malignancy history. Short-term follow-up CT is recommended in 2-3 months to reassess. Exposure: One or more of the following in the visualized dose reduction techniques were utilized for this examination: 1. Automated exposure control 2. Adjustment of the MA and/or KV according to patient size 3. Use of iterative of reconstructive technique Electronically signed by: Oscar Smart MD (03/20/2020 7:36 PM) [id number]
[2020-03-20] MEDS ORDERED: ONDA4TAB12 PO (19:47)
[2020-03-20] MEDS ORDERED: CEFP100T PO (19:47)
== END 2020-03-20 20:10 | disposition home or self-care (01) ==
LOC: ER 17:36
DX: N39.0 Urinary tract infection, site not specified (principal); B48.8 Other specified mycoses; R10.30 Lower abdominal pain, unspecified; E11.9 Type 2 diabetes mellitus without complications; I10 Essential (primary) hypertension; Z86.14 Personal history of Methicillin resistant Staphylococcus aureus infection; N41.1 Chronic prostatitis; Z87.891 Personal history of nicotine dependence; Z98.890 Other specified postprocedural states; Z88.7 Allergy status to serum and vaccine; Z88.8 Allergy status to other drugs, medicaments and biological substances
CPT/HCPCS: 36415; 74177; 80053; 81001; 83690; 85025; 85610; 85730; 96374; 99285; J0696; J7040; Q9967

== ENCOUNTER 2020-04-08 16:58 | Inpatient (IN) | payer MEDICARE, BC ==
[~2020-04-08] VITALS: Ht 170.2 cm; Wt 88.7 kg
[~2020-04-08 16:58] MED LIST changes: +CEFP100T PO; +ONDA4TAB12 PO
[2020-04-08 17:42] LABS: BASO % 1 % (0-3); EOS # 0.3 x10^3/uL (0.0-0.7); EOS % 4 % (0-3); HEMATOCRIT 34.7 % (39.0-53.0); HEMOGLOBIN 11.5 g/dL (13.0-17.5); LYMPH # 1.8 x10^3/uL (1.0-4.8); LYMPH % 21 % (24-48); MEAN CORPUSCULAR HEMOGLOBIN 28 pg (25-35); MEAN CORPUSCULAR HGB CONC 33 g/dL (31-37); MEAN CORPUSCULAR VOLUME 84 fL (79-100); MONO # 0.9 x10^3/uL (0.0-1.1); MONO % 11 % (0-9); NEUT # 5.5 x10^3/uL (1.8-7.7); NEUT % 64 % (31-73); PLATELET COUNT 146 x10^3/uL (140-400); RED BLOOD COUNT 4.13 x10^6/uL (4.30-5.70); RED CELL DISTRIBUTION WIDTH 15.4 % (11.5-14.5); WHITE BLOOD COUNT 8.6 x10^3/uL (4.0-11.0)
[2020-04-08 17:43] LABS: BILIRUBIN,URINE NEGATIVE (NEG); CLARITY,URINE CLOUDY; COLOR,URINE YELLOW; NITRITE,URINE POSITIVE (NEG); PH,URINE 7.5 (<5.0-8.0); PROTEIN,URINE 30 mg/dL (NEG-TRACE); UROBILINOGEN,URINE 0.2 mg/dL (0.2 mg/dL)
[2020-04-08 17:48] LABS: BACTERIA,URINE MANY /HPF (0-FEW); RBC,URINE OCC /HPF (0-2); WBC,URINE >40 /HPF (0-4); YEAST,URINE PRESENT /HPF
[2020-04-08 17:50] LABS: CALCIUM 8.1 mg/dL (8.5-10.1); CREATININE 1.1 mg/dL (0.7-1.3); GFR 63.9; POTASSIUM 4.4 mmol/L (3.5-5.1)
--- NOTE | 2020-04-08 17:51 | RAD ---
Exam: Chest one view INDICATION: Short of air TECHNIQUE: Frontal view of the chest Comparisons: None FINDINGS: The cardiomediastinal silhouette and pulmonary vessels are within normal limits. The lung and pleural spaces are clear. IMPRESSION: No acute cardiopulmonary process. Electronically signed by: Oscar Smart MD (04/08/2020 5:48 PM) [id number]
[2020-04-08 17:52] LABS: PROTHROMBIN TIME PATIENT 14.2 SEC (11.7-14.0)
[2020-04-08 17:56] LABS: ALBUMIN 3.1 g/dL (3.4-5.0); ALBUMIN/GLOBULIN RATIO 0.8 (1.0-1.7); TOTAL BILIRUBIN 0.5 mg/dL (0.2-1.0); TOTAL PROTEIN 7.2 g/dL (6.4-8.2)
--- NOTE | 2020-04-08 17:58 | PHYS DOC ---
Past Medical History Past Medical History: Dementia, Diabetes-Type II, Hypertension, MRSA, Prostatitis, URI, UTI, Other Additional Past Medical Histor: enlarged prostate Past Surgical History: Other Additional Past Surgical Histo: R eye sx, R BKA Smoking Status: Former Smoker Alcohol Use: None Drug Use: None General Adult EDM: Chief Complaint: ALTERED MENTAL STATUS HPI: HPI: Patient is a 84 year old male who was brought here by his family due to con fusion. Symptoms have been going on since yesterday. His family report that he not acting himself, not talking much. They said today every time they asked him a question he was just mumbling. They said he normally walks around with a walker but he appeared to be very weak. They said whenever he acted like this he had a UTI. While in Taveras catheter, he also had BKA on the right side. Upon arrival to room, patient was not able to get out of the wheelchair himself, took several nurses to take him out of the wheelchair and brought him in stretcher. Patient was able to answer some basic questions but confused. Patient denies any headache, no chest pain, no cough, no fever. Patient admi tted being weak. Patient denies any abdominal pain, no nausea vomiting. Review of Systems: Review of Systems: Constitutional: Denies fever or chills. [] Eyes: Denies change in visual acuity. [] HENT: Denies nasal congestion or sore throat. [] Respiratory: Denies cough or shortness of breath. [] Cardiovascular: Denies chest pain or edema. [] GI: Denies abdominal pain, nausea, vomiting, bloody stools or diarrhea. [] : Denies dysuria. [] Musculoskeletal: Denies back pain or joint pain. [] Integument: Denies rash. [] Neurologic: Positive for confusion, no focal weakness or sensory changes. Positive for generalized weakness Endocrine: Denies polyuria or polydipsia. [] Lymphatic: Denies swollen glands. [] Psychiatric: Denies depression or anxiety. [] Heart Score: Risk Factors: Risk Factors: DM, Current or recent (<one month) smoker, HTN, HLP, family history of CAD, obesity. Risk Scores: Score 0 - 3: 2.5% MACE over next 6 weeks - Discharge Home Score 4 - 6: 20.3% MACE over next 6 weeks - Admit for Clinical Observation Score 7 - 10: 72.7% MACE over next 6 weeks - Early Invasive Strategies Allergies: Allergies: Allergies Coded Allergies Type Severity Reaction Last Updated Verified Influenza Virus Vaccines Allergy Intermediate 05/09/17 Yes I S O L A T I O N *CONTACT* Allergy Unknown 05/12/17 Yes Physical Exam: PE: Constitutional: Well developed, well nourished, no acute distress, non-toxic appearance. [] HENT: Normocephalic, atraumatic, bilateral external ears normal, oropharynx is dried, no oral exudates, nose normal. [] Eyes: PERRLA, EOMI, conjunctiva normal, no discharge. [] Neck: Normal range of motion, no tenderness, supple, no stridor. [] Cardiovascular:Heart rate regular rhythm, no murmur [] Lungs & Thorax: Bilateral breath sounds clear to auscultation [] Abdomen: Bowel sounds normal, soft, no tenderness, no masses, no pulsatile masses. IN DWELLING TAVERAS CATHETER IN PLACE. Skin: Warm, dry, no erythema, no rash. [] Back: No tenderness, no CVA tenderness. [] Extremities: No tenderness, no cyanosis, no clubbing, ROM intact, no edema. [] Neurologic: Alert, AWAKE BUT DISORIENTED TO TIME AND PLACE, normal motor function, normal sensory function, no focal deficits noted. [] Psychologic: Affect normal, judgement normal, mood normal. [] Current Patient Data: Labs: Laboratory Tests Test 04/08/20 17:21 04/08/20 17:31 White Blood Count 8.6 x10^3/uL (4.0-11.0) Red Blood Count 4.13 x10^6/uL (4.30-5.70) L Hemoglobin 11.5 g/dL (13.0-17.5) L Hematocrit 34.7 % (39.0-53.0) L Mean Corpuscular Volume 84 fL (79-100) Mean Corpuscular Hemoglobin 28 pg (25-35) Mean Corpuscular Hemoglobin Concent 33 g/dL (31-37) Red Cell Distribution Width 15.4 % (11.5-14.5) H Platelet Count 146 x10^3/uL (140-400) Neutrophils (%) (Auto) 64 % (31-73) Lymphocytes (%) (Auto) 21 % (24-48) L Monocytes (%) (Auto) 11 % (0-9) H Eosinophils (%) (Auto) 4 % (0-3) H Basophils (%) (Auto) 1 % (0-3) Neutrophils # (Auto) 5.5 x10^3/uL (1.8-7.7) Lymphocytes # (Auto) 1.8 x10^3/uL (1.0-4.8) Monocytes # (Auto) 0.9 x10^3/uL (0.0-1.1) Eosinophils # (Auto) 0.3 x10^3/uL (0.0-0.7) Basophils # (Auto) 0.0 x10^3/uL (0.0-0.2) Urine Collection Type Unknown Urine Color Yellow Urine Clarity Cloudy Urine pH 7.5 (<5.0-8.0) Urine Specific [place] 1.020 (1.000-1.030) Urine Protein 30 mg/dL (NEG-TRACE) Urine Glucose (UA) 500 mg/dL (NEG) Urine Ketones (Stick) Negative mg/dL (NEG) Urine Blood Negative (NEG) Urine Nitrite Positive (NEG) Urine Bilirubin Negative (NEG) Urine Urobilinogen Dipstick 0.2 mg/dL (0.2 mg/dL) Urine Leukocyte Esterase Large (NEG) Urine RBC Occ /HPF (0-2) Urine WBC >40 /HPF (0-4) Urine Bacteria Many /HPF (0-FEW) Urine Yeast Present /HPF Glucose (Fingerstick) 311 mg/dL (70-99) H Laboratory Tests 04/08/20 17:21 Vital Signs: Vital Signs Date Time Temp Pulse Resp B/P (MAP) Pulse Ox O2 Delivery O2 Flow Rate FiO2 04/08/20 17:03 98.2 100 16 133/63 (86) 97 Room Air 98.2 EKG: EKG: EKG was done at 1719, heart rate 98 beats per minutes, sinus rhythm, no ST segment elevation, normal QT interval. [] Radiology/Procedures: Radiology/Procedures: [][facility] [address] [place], [place] [id number] IMAGING REPORT Signed PATIENT: MICKY SAAVEDRA ACCOUNT: [id number] : 1935 LOCATION: ER AGE: 84 SEX: M EXAM STATUS: REG ER ORD. PHYSICIAN: MARIANNE CLARKE DO REASON: altered mental status since yesterday PROCEDURE: CT HEAD WO CONTRAST Exam: CT head INDICATION: Altered mental status TECHNIQUE: Sequential axial images through the head were obtained without the administration of IV contrast. Comparisons: None FINDINGS: No focal parenchymal lesion or hemorrhage is identified. There is no midline shift or sulcal effacement. No acute vascular territory infarction is identified. Delacruz-white distinction is preserved. The ventricular system is within normal limits without compression hydrocephalus. The basal cisterns are well maintained. Mild mucosal thickening in the axilla sinuses and ethmoid air cells with frothy secretions noted in the left sphenoid sinus. No acute fractures. IMPRESSION: No acute intracranial abnormality. Sinus disease as described above. Exposure: One or more of the following in the visualized dose reduction techniques were utilized for this examination: 1. Automated exposure control 2. Adjustment of the MA and/or KV according to patient size Use of iterative of reconstructive technique Electronically signed by: Oscar Berkowitz MD (04/08/2020 6:36 PM) [id number] DICTATED and SIGNED BY: OSCAR BERKOWITZ MD DATE: 04/08/201835 Course & Med Decision Making: Course & Med Decision Making Pertinent Labs and Imaging studies reviewed. (See chart for details) Patient is a 84-year-old male who was evaluated in the ER due to confusion, increased general weakness. Patient has UTI, he was septic, he was given IV fluid and IV Rocephin in the ER, he will be admitted to hospital under the service of Dr. Bosch. Edilson Disclaimer: Edilson Disclaimer: This electronic medical record was generated, in whole or in part, using a voice recognition dictation system. Departure Departure Impression: Primary Impression: Altered mental status Additional Impressions: Dehydration UTI (urinary tract infection) Sepsis Disposition: ADMITTED INPATIENT Admitting Physician: Luisito Prater Condition: IMPROVED Referrals: LUISITO PRATER MD (PCP) Justicifation of Admission Dx: Justifications for Admission: Justification of Admission Dx: Yes Sepsis: Altered Mental Status MARIANNE CLARKE DO Apr 08, 2020 17:58
[2020-04-08] MEDS ORDERED: IV NORMAL SALINE 1000ML BAG 1,000 ML IV ONE ×2 (18:00→19:00)
[2020-04-08] MEDS ORDERED: cefTRIAXone IV Push 1 GM VIAL. IVP ONE (18:30)
[2020-04-08] MEDS ORDERED: FLUCONAZOLE 100 MG TABLET. PO ONE (18:30)
[2020-04-08] MEDS ORDERED: ONDANSETRON PF 4 MG/2 ML VIAL. IV PRN (18:30)
--- NOTE | 2020-04-08 18:39 | RAD ---
Exam: CT head INDICATION: Altered mental status TECHNIQUE: Sequential axial images through the head were obtained without the administration of IV contrast. Comparisons: None FINDINGS: No focal parenchymal lesion or hemorrhage is identified. There is no midline shift or sulcal effacement. No acute vascular territory infarction is identified. Delacruz-white distinction is preserved. The ventricular system is within normal limits without compression hydrocephalus. The basal cisterns are well maintained. Mild mucosal thickening in the axilla sinuses and ethmoid air cells with frothy secretions noted in the left sphenoid sinus. No acute fractures. IMPRESSION: No acute intracranial abnormality. Sinus disease as described above. Exposure: One or more of the following in the visualized dose reduction techniques were utilized for this examination: 1. Automated exposure control 2. Adjustment of the MA and/or KV according to patient size Use of iterative of reconstructive technique Electronically signed by: Oscar Smart MD (04/08/2020 6:36 PM) [id number]
[2020-04-08] MEDS: IV NORMAL SALINE 1000ML BAG 1,000 ML IV SCH (20:14)
[2020-04-08 21:10] VITALS: BP 174/73
[2020-04-08 22:30] VITALS: BP 139/57
[2020-04-09] VITALS (7 sets, daily range): BP systolic 119–150; BP diastolic 62–101
--- NOTE | 2020-04-09 | NUR ---
Pt admitted to CVC room 210 at 2110. Pt brought on bed by ED nurse. Pt transferred to CVC bed with 4x assist. Pt alert and oriented only to self upon admission. Pt does follow commands. SBP slightly elevated, all other VSS. Pt afebrile. Sepsis protocol started in ED. Pt received fluid boluses, continuing to receive 125 mls/hr of NS at this time. Pt also drinking fluids and is on an ADA diet. VIDA AGRAWAL. Multiple wounds noted- diabetic left foot wound, sacrum pressure ulcer, scrotal/penile maceration and pressure wound. Pt has chronic alcaraz at home. See wound assessment. Repeat lactic came back at 1.2. Pt is being repositioned and reassessed frequently. Fall prevention in place per protocol. Pt is currently resting with eyes closed and call light within reach. Will pass on and continue to monitor.
[2020-04-09] MEDS: IV NORMAL SALINE 1000ML BAG 1,000 ML IV SCH ×2 (04:36→13:04)
--- NOTE | 2020-04-09 07:44 | NUR ---
IP: Pt has a hx of (R) Moganella in urine on 10/18/19. Pt adm with UTI. Pt to be in contact until urine culture verified.
[2020-04-09] MEDS ORDERED: ONDANSETRON ODT 4 MG TAB.RAPDIS. PO SCH (08:30)
[2020-04-09] MEDS ORDERED: ALBUTEROL SULFATE 2.5 MG/3 ML NEBU. INH PRN (08:30)
--- NOTE | 2020-04-09 08:42 | HP ---
ADMIT DATE: 04/08/2020 CHIEF COMPLAINT AND HISTORY OF PRESENT ILLNESS: This 84-year-old male well known to me from followup in the office. He lives with his daughter who takes care of him due to his pycrf-fyr-jjiq amputation, diabetes and dementia. The patient has been more confused over the last several days. He was brought to the Emergency Room where he was found to have a urinary tract infection, admitted for the same. 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 MEDICATIONS: Brought with the patient, listed on the computer and have been addressed. ALLERGIES: HE IS ALLERGIC TO INFLUENZA VACCINE. SOCIAL HISTORY: Nonsmoker, former beer drinker, , again lives with the daughter. FAMILY HISTORY: Noncontributory. REVIEW OF SYSTEMS: Without significant complaints. However, the patient is obviously more confused than his baseline. PHYSICAL EXAMINATION: GENERAL: He is well-developed, well-nourished male in no acute distress, lying in bed. VITAL SIGNS: Stable. He is afebrile. HEAD, EYES, EARS, NOSE AND THROAT: Unremarkable. NECK: Supple, without adenopathy or thyromegaly. CHEST: Clear to auscultation and percussion. HEART: Regular rate and rhythm without S3, S4 or murmur. ABDOMEN: Soft, nontender, without hepatosplenomegaly or masses. He does have a Marley in place draining clear yellow urine. EXTREMITIES: Remarkable for the right dbouv-lcl-cjwl amputation. NEUROLOGIC: He is nonfocal. LABORATORY DATA: Initial laboratory is remarkable for a normal white count of 8600. Initial lactic acid is elevated at 3.4 and has come down to 1.2 this morning. Troponin is 0.058. On a chem panel, his alk phos is 172 and glucose 329 on admission. INR is within normal limits. Urine is positive for nitrite, large leukocyte esterase, greater than 40 white cells, many bacteria and some yeast. IMPRESSION: Sepsis due to urinary tract source with lactic acidosis. ADDITIONAL DIAGNOSES: Dehydration, diabetes, dementia, encephalopathy. PLAN: The patient has been admitted. Hydration is ongoing. Home meds will be restarted. The patient will also be treated with Rocephin pending cultures and the patient will be monitored, managed and treated appropriately. LUISITO RUSSELL MD DR: Tamiko JOB#: [id number] / [id number]
--- NOTE | 2020-04-09 09:04 | EKG ---
[facility] [address] [place] [address] Test Date: 2020-04-08 Test Time: 17:19:52 Pat Name: MICKY SAAVEDRA Department: Room: 210 1 Gender: M [employer]: : 1935 Requested By: MARIANNE CLARKE Order Number: [id number] Reading MD: Yuri Mitchell MD Measurements Intervals [place] Rate: 98 P: 51 MA: 190 QRS: -29 QRSD: 110 T: 90 QT: 362 QTc: 464 Interpretive Statements SINUS RHYTHM LAD NON-SPECIFIC ST/T CHANGES Electronically Signed On 04-12-2020 12:04:02 CDT by Yuri Mitchell MD
[2020-04-09] MEDS: ERGOCALCIFEROL (VITAMIN D2) 50,000 UNIT CAPSULE. PO SCH (09:56)
[2020-04-09] MEDS: ASPIRIN CHEWABLE 81 MG TABLET. PO SCH (09:56)
[2020-04-09] MEDS: DULoxetine HCL 30 MG CAPSULE.DR PO SCH (09:57)
[2020-04-09] MEDS: CARVEDILOL 12.5 MG TABLET. PO SCH ×2 (09:58→17:53)
[2020-04-09] MEDS: ISOSORBIDE MONONITRATE ER 30 MG TAB.ER.24H PO SCH (09:58)
[2020-04-09] MEDS: LACTOBACILLUS RHAMNOSUS GG 1 CAPSULE. PO SCH ×3 (11:30→17:50)
--- NOTE | 2020-04-09 11:38 | NUR ---
SS following for discharge planning. SS reviewed pt chart and discussed with pt RN. Pt is from home with daughter and is currently on room air. Pt on IV Rocephin. Pt was discharged from [facility] on 01/20/2020 and was sent home with [facility], ; fax [phone]. SS contacted pt's daughter, Maegan, , and discussed discharge planning. Pt's daughter requesting longterm unit at discharge at [facility], ; fax [phone]. PT/OT ordered. SS will continue to follow for discharge planning.
[2020-04-09] MEDS: MIDODRINE 2.5 MG TABLET PO SCH ×2 (13:07→18:00)
--- NOTE | 2020-04-09 16:16 | NUR ---
Wound Care Wound Type/Assessment: coccyx healed, penis has scar tissue and new skin from catheter. Left foot wound is purulent Treatment Recommendations/Plan: Calazime to coccyx, penis is not a wound, Left foot dressed with iodoflex and foam dressing, change every 3 days Education provided: Pt educated on PU prevention, will need reinforcement of teaching due to mental status Offloading surface/device: P500 bed, WC cushion ordered Recommended Referrals/Tests: culture of left foot, will page Dr Prater for order Discharge Recommendations for dressings: continue as above
[2020-04-09] MEDS: cefTRIAXone IV Push 1 GM VIAL. IVP SCH (17:41)
[2020-04-09] MEDS: LORazepam 0.5 MG TABLET PO PRN (22:33)
[2020-04-09] MEDS: GABAPENTIN 300 MG CAPSULE. PO SCH (22:33)
[2020-04-09] MEDS: ATORVASTATIN CALCIUM 10 MG TABLET. PO SCH (22:33)
[2020-04-09] MEDS: INSULIN GLARGINE SYRINGE. SQ SCH (22:42)
[2020-04-10] VITALS (7 sets, daily range): BP systolic 112–152; BP diastolic 54–99
[2020-04-10] MEDS: MIDODRINE 2.5 MG TABLET PO SCH ×3 (07:00→19:10)
--- NOTE | 2020-04-10 07:34 | PDOC ---
GENERAL General: vss and afebrile. awake and confused more so than his baseline. exam stable. on going iv rocephin. will ask ID for possible adjustments antibiotics with no improvement on current. otherwise same. VITAL SIGNS/I&O Vital Signs/I&O: Vital Signs Date Time Temp Pulse Resp B/P (MAP) Pulse Ox O2 Delivery O2 Flow Rate FiO2 04/10/20 03:29 98.3 71 19 137/83 (101) 97 Room Air 98.3 I & O 04/09/20 04/09/20 04/10/20 15:00 23:00 07:00 Intake Total 150 ml 50 ml 1500 ml Output Total 1500 ml Balance 150 ml 50 ml 0 ml ALLERGIES Allergies: Allergies Coded Allergies Type Severity Reaction Last Updated Verified Influenza Virus Vaccines Allergy Intermediate 05/09/17 Yes I S O L A T I O N *CONTACT* Allergy Unknown 05/12/17 Yes MEDS Medications: Current Medications Medications (Trade) Dose Ordered Sig/Chay Route PRN Reason Start Time Stop Time Status Last Admin Dose Admin Aspirin (Aspirin Chewable) 81 mg DAILY PO 04/09/20 10:00 04/09/20 09:56 Atorvastatin Calcium (Lipitor) 10 mg QHS PO 04/09/20 21:00 04/09/20 22:33 Ergocalciferol (Vitamin D2) 50,000 unit WEEKLY PO 04/09/20 10:00 04/09/20 09:56 Insulin Glargine (Lantus Syringe) 10 unit QHS SQ 04/09/20 21:00 04/09/20 22:42 Isosorbide Mononitrate (Imdur) 30 mg DAILY PO 04/09/20 10:00 04/09/20 09:58 Midodrine (Proamatine) 2.5 mg [id number] PO 04/09/20 13:00 04/09/20 13:07 Lactobacillus Rhamnosus (Culturelle) 1 cap TIDAC PO 04/09/20 11:30 04/09/20 17:50 Carvedilol (Coreg) 12.5 mg BIDWMEALS PO 04/09/20 10:00 04/09/20 17:53 Duloxetine HCl (Cymbalta) 60 mg DAILY PO 04/09/20 10:00 04/09/20 09:57 Gabapentin (Neurontin) 300 mg QHS PO 04/09/20 21:00 04/09/20 22:33 Ceftriaxone Sodium (Rocephin) 1 gm Q24H IVP 04/09/20 18:00 04/09/20 17:41 Lorazepam (Ativan) 0.5 mg PRN Q6HRS PRN PO ANXIETY / AGITATION 04/09/20 21:00 04/09/20 22:33 LAB Lab: Laboratory Tests Test 04/09/20 08:18 04/09/20 12:08 04/09/20 17:03 04/09/20 22:38 Glucose (Fingerstick) 179 mg/dL (70-99) H 237 mg/dL (70-99) H 239 mg/dL (70-99) H 240 mg/dL (70-99) H Justicifation of Admission Dx: Justifications for Admission: Justification of Admission Dx: Yes Sepsis: Infection APPLLUISITO MD Apr 10, 2020 07:34
[2020-04-10] MEDS ORDERED: MULTIVITAMIN with MINERAL TABLET. PO SCH (10:00)
[2020-04-10] MEDS: CARVEDILOL 12.5 MG TABLET. PO SCH ×2 (10:47→17:59)
[2020-04-10] MEDS: DULoxetine HCL 30 MG CAPSULE.DR PO SCH (10:48)
[2020-04-10] MEDS: LACTOBACILLUS RHAMNOSUS GG 1 CAPSULE. PO SCH ×3 (10:48→17:58)
[2020-04-10] MEDS: ASCORBIC ACID 500 MG TABLET PO SCH (10:48)
[2020-04-10] MEDS: ASPIRIN CHEWABLE 81 MG TABLET. PO SCH (10:48)
[2020-04-10] MEDS: ISOSORBIDE MONONITRATE ER 30 MG TAB.ER.24H PO SCH (10:56)
[2020-04-10] MEDS: MULTIVITAMINS,THERAPEUTIC 5 ML ORAL LIQUID. PO SCH (12:00)
[2020-04-10] MEDS: cefTRIAXone IV Push 1 GM VIAL. IVP SCH (17:58)
[2020-04-10] MEDS: IV NORMAL SALINE 1000ML BAG 1,000 ML IV SCH (18:07)
[2020-04-10] MEDS: GABAPENTIN 300 MG CAPSULE. PO SCH (20:50)
[2020-04-10] MEDS: ATORVASTATIN CALCIUM 10 MG TABLET. PO SCH (20:50)
[2020-04-10] MEDS: LORazepam 0.5 MG TABLET PO PRN (20:50)
[2020-04-10] MEDS: INSULIN GLARGINE SYRINGE. SQ SCH (20:54)
[2020-04-11 02:48] VITALS: BP 112/58
[2020-04-11] MEDS: IV NORMAL SALINE 1000ML BAG 1,000 ML IV SCH ×2 (05:10→13:31)
[2020-04-11 06:39] VITALS: BP 127/45
--- NOTE | 2020-04-11 07:40 | PDOC ---
GENERAL General: vss and afebrile. awake and alert and remains more confused than usual. will ask ID for help on choice of antibiotics given contaminated culture results. chest clear, heart regular, abdomen benign, sugars variable. VITAL SIGNS/I&O Vital Signs/I&O: Vital Signs Date Time Temp Pulse Resp B/P (MAP) Pulse Ox O2 Delivery O2 Flow Rate FiO2 04/11/20 06:39 97.8 65 18 127/45 (72) 99 Room Air 97.8 I & O 04/10/20 04/10/20 04/11/20 15:00 23:00 07:00 Intake Total 240 ml 1000 ml Output Total 2900 ml 300 ml Balance -2900 ml 240 ml 700 ml ALLERGIES Allergies: Allergies Coded Allergies Type Severity Reaction Last Updated Verified Influenza Virus Vaccines Allergy Intermediate 05/09/17 Yes I S O L A T I O N *CONTACT* Allergy Unknown 05/12/17 Yes MEDS Medications: Current Medications Medications (Trade) Dose Ordered Sig/Chay Route PRN Reason Start Time Stop Time Status Last Admin Dose Admin Multivitamins (Thera M Plus) 1 tab DAILY PO 04/10/20 10:00 04/10/20 11:14 DC 04/10/20 10:48 Ascorbic Acid (Vitamin C) 500 mg DAILY PO 04/10/20 10:00 04/10/20 10:48 Sodium Chloride 1,000 ml @ 60 mls/hr [id number] IV 04/10/20 12:30 04/10/20 18:07 LAB Lab: Laboratory Tests Test 04/10/20 07:52 04/10/20 11:47 04/10/20 16:39 04/10/20 20:50 Glucose (Fingerstick) 159 mg/dL (70-99) H 194 mg/dL (70-99) H 261 mg/dL (70-99) H 289 mg/dL (70-99) H Test 04/11/20 07:05 Glucose (Fingerstick) 146 mg/dL (70-99) H Justicifation of Admission Dx: Justifications for Admission: Justification of Admission Dx: Yes Sepsis: Infection LUISITO RUSSELL MD Apr 11, 2020 07:40
[2020-04-11] MEDS: DULoxetine HCL 30 MG CAPSULE.DR PO SCH (10:09)
[2020-04-11] MEDS: ASCORBIC ACID 500 MG TABLET PO SCH (10:09)
[2020-04-11] MEDS: ASPIRIN CHEWABLE 81 MG TABLET. PO SCH (10:09)
[2020-04-11] MEDS: ISOSORBIDE MONONITRATE ER 30 MG TAB.ER.24H PO SCH (10:09)
[2020-04-11] MEDS: LACTOBACILLUS RHAMNOSUS GG 1 CAPSULE. PO SCH ×3 (10:09→17:30)
[2020-04-11] MEDS: CARVEDILOL 12.5 MG TABLET. PO SCH ×2 (10:10→17:32)
[2020-04-11] MEDS: MIDODRINE 2.5 MG TABLET PO SCH ×3 (10:10→17:32)
[2020-04-11] MEDS: LISINOPRIL 20 MG TABLET PO PRN (10:10)
[2020-04-11] MEDS: MULTIVITAMINS,THERAPEUTIC 5 ML ORAL LIQUID. PO SCH (10:11)
[2020-04-11 10:26] VITALS: BP 150/83
[2020-04-11 10:48] LABS: BILIRUBIN,URINE NEGATIVE (NEG); CLARITY,URINE CLOUDY; COLOR,URINE YELLOW; NITRITE,URINE POSITIVE (NEG); PROTEIN,URINE 30 mg/dL (NEG-TRACE)
[2020-04-11 10:58] LABS: BACTERIA,URINE MODERATE /HPF (0-FEW); RBC,URINE RARE /HPF (0-2); SQUAMOUS EPITHELIAL CELL,UR FEW /LPF; WBC,URINE TNTC /HPF (0-4)
--- NOTE | 2020-04-11 12:26 | PDOC ---
Infectious Disease Note Vital Signs: Vital Signs Vital Signs Date Time Temp Pulse Resp B/P (MAP) Pulse Ox O2 Delivery O2 Flow Rate FiO2 04/11/20 10:26 97.4 68 18 150/83 (105) 98 Room Air 97.4 Medications: Inpatient Meds: Current Medications Medications (Trade) Dose Ordered Sig/Chay Start Time Stop Time Status Last Admin Dose Admin Albuterol Sulfate (Ventolin Neb Soln) 3 mg PRN Q4HRS PRN 04/09/20 08:30 Ascorbic Acid (Vitamin C) 500 mg DAILY 04/10/20 10:00 04/11/20 10:09 500 MG Aspirin (Aspirin Chewable) 81 mg DAILY 04/09/20 10:00 04/11/20 10:09 81 MG Atorvastatin Calcium (Lipitor) 10 mg QHS 04/09/20 21:00 04/10/20 20:50 10 MG Carvedilol (Coreg) 12.5 mg BIDWMEALS 04/09/20 10:00 04/11/20 10:10 12.5 MG Ceftriaxone Sodium (Rocephin) 1 gm Q24H 04/09/20 18:00 04/10/20 17:58 1 GM Duloxetine HCl (Cymbalta) 60 mg DAILY 04/09/20 10:00 04/11/20 10:09 60 MG Ergocalciferol (Vitamin D2) 50,000 unit WEEKLY 04/09/20 10:00 04/09/20 09:56 50,000 UNIT Fluconazole (Diflucan) 100 mg 1X ONCE 04/08/20 18:30 04/08/20 18:31 DC 04/08/20 18:50 100 MG Gabapentin (Neurontin) 300 mg QHS 04/09/20 21:00 04/10/20 20:50 300 MG Insulin Glargine (Lantus Syringe) 10 unit QHS 04/09/20 21:00 04/10/20 20:54 10 UNIT Isosorbide Mononitrate (Imdur) 30 mg DAILY 04/09/20 10:00 04/11/20 10:09 30 MG Lactobacillus Rhamnosus (Culturelle) 1 cap TIDAC 04/09/20 11:30 04/11/20 10:09 1 CAP Lisinopril (Prinivil) 20 mg PRN DAILY PRN 04/09/20 09:00 04/11/20 10:10 20 MG Lorazepam (Ativan) 0.5 mg PRN Q6HRS PRN 04/09/20 21:00 04/10/20 20:50 0.5 MG Midodrine (Proamatine) 2.5 mg [id number] 04/09/20 13:00 04/11/20 10:10 2.5 MG Multivitamins (Thera M Plus) 1 tab DAILY 04/10/20 10:00 04/10/20 11:14 DC 04/10/20 10:48 1 TAB Multivitamins/ Minerals Therapeutic (Centrum Multivit-Mineral Liq) 5 ml DAILY 04/10/20 12:00 04/11/20 10:11 5 ML Ondansetron HCl (Zofran Odt) 4 mg PRN Q6HRS 04/09/20 08:30 Ondansetron HCl (Zofran) 4 mg PRN Q8HRS PRN 04/08/20 18:30 04/09/20 18:29 DC Sodium Chloride 1,000 ml @ 60 mls/hr [id number] 04/10/20 12:30 04/10/20 18:07 60 MLS/HR Labs: Lab Laboratory Tests Test 04/10/20 16:39 04/10/20 20:50 04/11/20 07:05 04/11/20 10:20 Glucose (Fingerstick) 261 mg/dL (70-99) 289 mg/dL (70-99) 146 mg/dL (70-99) Urine Collection Type Unknown Urine Color Yellow Urine Clarity Cloudy Urine pH 7.0 (<5.0-8.0) Urine Specific [place] 1.020 (1.000-1.030) Urine Protein 30 mg/dL (NEG-TRACE) Urine Glucose (UA) Negative mg/dL (NEG) Urine Ketones (Stick) Negative mg/dL (NEG) Urine Blood Trace (NEG) Urine Nitrite Positive (NEG) Urine Bilirubin Negative (NEG) Urine Urobilinogen Dipstick 1.0 mg/dL (0.2 mg/dL) Urine Leukocyte Esterase Large (NEG) Urine RBC Rare /HPF (0-2) Urine WBC Tntc /HPF (0-4) Urine Squamous Epithelial Cells Few /LPF Urine Bacteria Moderate /HPF (0-FEW) Urine Mucus Slight /LPF Test 04/11/20 11:22 Glucose (Fingerstick) 190 mg/dL (70-99) Objective: Assessment: Patient seen and examined ID consult dictated Plan: Plan of Care Thank you [id number] VONNIE ARANDA MD Apr 11, 2020 12:26
[2020-04-11] MEDS: CEFEPIME HCL IV Push 1 GM VIAL. IVP SCH ×2 (13:22→20:16)
[2020-04-11 14:19] VITALS: BP 98/52
--- NOTE | 2020-04-11 14:21 | CONS ---
DATE OF CONSULTATION: 04/11/2020 REFERRING PHYSICIAN: Lew Prater MD REASON FOR CONSULTATION: Antibiotic management. HISTORY OF PRESENT ILLNESS: An 84-year-old male who lives with his daughter with history of right below knee amputation, diabetes, dementia, chronic indwelling Marley was admitted with confusion over the last few days. He was found to have pyuria this morning. He had hematuria from the Marley catheter. The patient is little more alert today, but not able to answer all the questions. He has been afebrile since admission. White count is normal, hemoglobin of 11.5, platelets of 146, creatinine of 1.1 with lactate of 3.4. UA on 04/08 showed large leukocyte esterase, positive nitrite. Urine culture showed more than 3 organisms consistent with contamination. Blood cultures were negative. Repeat UA shows Pseudomonas aeruginosa. ID consult has been requested for antibiotic management. The patient is currently on Rocephin. REVIEW OF SYSTEMS: Limited, but denies any fevers, chills, nausea, vomiting, diarrhea, abdominal pain, rash, shortness of breath or cough. 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 CURRENT MEDICATIONS: Rocephin. Other medications reviewed in medication list. ALLERGIES: ALLERGIC TO INFLUENZA VACCINE. SOCIAL HISTORY: Nonsmoker. Former beer drinker. , lives with his daughter. FAMILY HISTORY: As per HPI. PHYSICAL EXAMINATION: VITAL SIGNS: Temperature 97.4, pulse 68, respiratory rate 18, blood pressure 150/83, oxygen saturation 98% on room air. GENERAL: Well-developed, well-nourished male lying in bed, alert, awake, answers only few questions. HEENT: Normocephalic, atraumatic. No thrush. Poor dentition. NECK: Supple. LUNGS: Clear to auscultation. HEART: S1, S2, no murmurs. ABDOMEN: Soft, nontender, nondistended, no rebound, no guarding. GENITOURINARY: Marley in place with blood stained drainage from the surrounding area. EXTREMITIES: Right below-knee amputation. Left lower extremity callus with superficial wound on the left foot plantar aspect. No erythema. NEUROLOGIC: Alert, awake. Communication is somewhat limited. Moves all 4 extremities. LABORATORY DATA: WBC 8.6, hemoglobin 11.5, hematocrit 34.7, platelets 146. Sodium 135, potassium 4.4, chloride 98, bicarbonate 29, BUN 24, creatinine 1.1, glucose 329. Lactate 3.4, repeat is 1.2. Troponin 0.058. Albumin 3.1. UA / shows positive nitrite, large leukocyte esterase, greater than 40 wbc's. Left foot wound Pseudomonas aeruginosa. Urine multiple organisms. Repeat is pending at this time. Blood culture negative. IMAGING: Chest x-ray, no acute cardiopulmonary process. Head CT, no acute intracranial process. Sinus disease as described. IMPRESSION: 1. Catheter-associated urinary tract infection with chronic indwelling Marley in place with blood stained drainage from the penile area. Urine cultures shows multiple organisms, likely contaminant. 2. Left plantar chronic wound with cultures positive for Pseudomonas. 3. Right below-knee amputation. 4. Dementia. 5. Diabetes. 6. Lactic acidosis, improving. RECOMMENDATIONS: 1. Discontinue ceftriaxone, start cefepime. 2. Follow up repeat urine cultures. 3. Follow up cultures and lab. 4. Continue local wound care of left foot. 5. Continue supportive care. Thank you, Dr. Parter for consulting Infectious Disease to participate in this patient's care. If you have any questions, do not hesitate to contact me. VONNIE ARANDA MD DR: LYNNE/vielka JOB#: [id number] / [id number] LUDIVINA
[2020-04-11 19:30] VITALS: BP 144/77
[2020-04-11] MEDS: GABAPENTIN 300 MG CAPSULE. PO SCH (20:16)
[2020-04-11] MEDS: ATORVASTATIN CALCIUM 10 MG TABLET. PO SCH (20:16)
[2020-04-11] MEDS: LORazepam 0.5 MG TABLET PO PRN (20:33)
[2020-04-11] MEDS: INSULIN GLARGINE SYRINGE. SQ SCH (20:43)
[2020-04-11 23:12] VITALS: BP 146/75
[2020-04-12] VITALS (7 sets, daily range): BP systolic 100–159; BP diastolic 51–84
[2020-04-12] MEDS: MIDODRINE 2.5 MG TABLET PO SCH ×3 (06:03→17:24)
[2020-04-12] MEDS: IV NORMAL SALINE 1000ML BAG 1,000 ML IV SCH ×2 (06:04→20:50)
--- NOTE | 2020-04-12 08:14 | PDOC ---
GENERAL General: vss and afebrile. awake and much more alert today likely due to change to cefep cj. chest clear, heart regular, abdomen benign. repeat urine culture pending. likely to snu when can choose appropriate antibiotics. VITAL SIGNS/I&O Vital Signs/I&O: Vital Signs Date Time Temp Pulse Resp B/P (MAP) Pulse Ox O2 Delivery O2 Flow Rate FiO2 04/12/20 07:50 Room Air 04/12/20 07:00 97.6 70 135/81 (99) 95 97.6 04/11/20 23:12 18 I & O 04/11/20 04/11/20 04/12/20 15:00 23:00 07:00 Intake Total 60 ml 1000 ml Output Total 400 ml 750 ml Balance -340 ml 250 ml ALLERGIES Allergies: Allergies Coded Allergies Type Severity Reaction Last Updated Verified Influenza Virus Vaccines Allergy Intermediate 05/09/17 Yes I S O L A T I O N *CONTACT* Allergy Unknown 05/12/17 Yes MEDS Medications: Current Medications Medications (Trade) Dose Ordered Sig/Chay Route PRN Reason Start Time Stop Time Status Last Admin Dose Admin Cefepime HCl (Maxipime) 1 gm Q12HR IVP 04/11/20 13:00 04/11/20 20:16 LAB Lab: Laboratory Tests Test 04/11/20 10:20 04/11/20 11:22 04/11/20 16:34 04/11/20 20:42 Urine Collection Type Unknown Urine Color Yellow Urine Clarity Cloudy Urine pH 7.0 (<5.0-8.0) Urine Specific [place] 1.020 (1.000-1.030) Urine Protein 30 mg/dL (NEG-TRACE) Urine Glucose (UA) Negative mg/dL (NEG) Urine Ketones (Stick) Negative mg/dL (NEG) Urine Blood Trace (NEG) Urine Nitrite Positive (NEG) Urine Bilirubin Negative (NEG) Urine Urobilinogen Dipstick 1.0 mg/dL (0.2 mg/dL) Urine Leukocyte Esterase Large (NEG) Urine RBC Rare /HPF (0-2) Urine WBC Tntc /HPF (0-4) Urine Squamous Epithelial Cells Few /LPF Urine Bacteria Moderate /HPF (0-FEW) Urine Mucus Slight /LPF Glucose (Fingerstick) 190 mg/dL (70-99) H 253 mg/dL (70-99) H 251 mg/dL (70-99) H Test 04/12/20 07:43 Glucose (Fingerstick) 117 mg/dL (70-99) H Justicifation of Admission Dx: Justifications for Admission: Justification of Admission Dx: Yes Sepsis: Infection LUISITO RUSSELL MD Apr 12, 2020 08:14
--- NOTE | 2020-04-12 08:37 | PDOC ---
Infectious Disease Note Subjective: Subjective Patient more alert Denies any complaints Discussed with RN No more bleeding from penile area Vital Signs: Vital Signs Vital Signs Date Time Temp Pulse Resp B/P (MAP) Pulse Ox O2 Delivery O2 Flow Rate FiO2 04/12/20 07:50 Room Air 04/12/20 07:00 97.6 70 135/81 (99) 95 97.6 04/11/20 23:12 18 Physical Exam: PHYSICAL EXAM GENERAL: Well-developed, well-nourished male lying in bed, alert, awake, answers only few questions. HEENT: Normocephalic, atraumatic. No thrush. Poor dentition. NECK: Supple. LUNGS: Clear to auscultation. HEART: S1, S2, no murmurs. ABDOMEN: Soft, nontender, nondistended, no rebound, no guarding. GENITOURINARY: Marley in place with blood stained drainage from the surrounding area. EXTREMITIES: Right below-knee amputation. Left lower extremity callus with superficial wound on the left foot plantar aspect. No erythema. No underlying abscess NEUROLOGIC: Alert, awake. Communication is somewhat limited. Moves all 4 extremities. Medications: Inpatient Meds: Current Medications Medications (Trade) Dose Ordered Sig/Chay Start Time Stop Time Status Last Admin Dose Admin Albuterol Sulfate (Ventolin Neb Soln) 3 mg PRN Q4HRS PRN 04/09/20 08:30 Ascorbic Acid (Vitamin C) 500 mg DAILY 04/10/20 10:00 04/11/20 10:09 500 MG Aspirin (Aspirin Chewable) 81 mg DAILY 04/09/20 10:00 04/11/20 10:09 81 MG Atorvastatin Calcium (Lipitor) 10 mg QHS 04/09/20 21:00 04/11/20 20:16 10 MG Carvedilol (Coreg) 12.5 mg BIDWMEALS 04/09/20 10:00 04/11/20 17:32 12.5 MG Cefepime HCl (Maxipime) 1 gm Q12HR 04/11/20 13:00 04/11/20 20:16 1 GM Ceftriaxone Sodium (Rocephin) 1 gm Q24H 04/09/20 18:00 04/11/20 12:25 DC 04/10/20 17:58 1 GM Duloxetine HCl (Cymbalta) 60 mg DAILY 04/09/20 10:00 04/11/20 10:09 60 MG Ergocalciferol (Vitamin D2) 50,000 unit WEEKLY 04/09/20 10:00 04/09/20 09:56 50,000 UNIT Fluconazole (Diflucan) 100 mg 1X ONCE 04/08/20 18:30 04/08/20 18:31 DC 04/08/20 18:50 100 MG Gabapentin (Neurontin) 300 mg QHS 04/09/20 21:00 04/11/20 20:16 300 MG Insulin Glargine (Lantus Syringe) 10 unit QHS 04/09/20 21:00 04/11/20 20:43 10 UNIT Isosorbide Mononitrate (Imdur) 30 mg DAILY 04/09/20 10:00 04/11/20 10:09 30 MG Lactobacillus Rhamnosus (Culturelle) 1 cap TIDAC 04/09/20 11:30 04/11/20 17:30 1 CAP Lisinopril (Prinivil) 20 mg PRN DAILY PRN 04/09/20 09:00 04/11/20 10:10 20 MG Lorazepam (Ativan) 0.5 mg PRN Q6HRS PRN 04/09/20 21:00 04/11/20 20:33 0.5 MG Midodrine (Proamatine) 2.5 mg [id number] 04/09/20 13:00 04/11/20 17:32 2.5 MG Multivitamins (Thera M Plus) 1 tab DAILY 04/10/20 10:00 04/10/20 11:14 DC 04/10/20 10:48 1 TAB Multivitamins/ Minerals Therapeutic (Centrum Multivit-Mineral Liq) 5 ml DAILY 04/10/20 12:00 04/11/20 10:11 5 ML Ondansetron HCl (Zofran Odt) 4 mg PRN Q6HRS 04/09/20 08:30 Ondansetron HCl (Zofran) 4 mg PRN Q8HRS PRN 04/08/20 18:30 04/09/20 18:29 DC Sodium Chloride 1,000 ml @ 60 mls/hr [id number] 04/10/20 12:30 04/12/20 06:04 60 MLS/HR Labs: Lab Laboratory Tests Test 04/11/20 10:20 04/11/20 11:22 04/11/20 16:34 04/11/20 20:42 Urine Collection Type Unknown Urine Color Yellow Urine Clarity Cloudy Urine pH 7.0 (<5.0-8.0) Urine Specific [place] 1.020 (1.000-1.030) Urine Protein 30 mg/dL (NEG-TRACE) Urine Glucose (UA) Negative mg/dL (NEG) Urine Ketones (Stick) Negative mg/dL (NEG) Urine Blood Trace (NEG) Urine Nitrite Positive (NEG) Urine Bilirubin Negative (NEG) Urine Urobilinogen Dipstick 1.0 mg/dL (0.2 mg/dL) Urine Leukocyte Esterase Large (NEG) Urine RBC Rare /HPF (0-2) Urine WBC Tntc /HPF (0-4) Urine Squamous Epithelial Cells Few /LPF Urine Bacteria Moderate /HPF (0-FEW) Urine Mucus Slight /LPF Glucose (Fingerstick) 190 mg/dL (70-99) 253 mg/dL (70-99) 251 mg/dL (70-99) Test 04/12/20 07:43 Glucose (Fingerstick) 117 mg/dL (70-99) Objective: Assessment: 1. Catheter-associated urinary tract infection with chronic indwelling Marley in place with blood stained drainage from the penile area. Urine cultures shows multiple organisms, likely contaminant. 2. Left plantar chronic superficial wound with cultures positive for Pseudomonas. No surrounding cellulitis or abscess; could be contaminant 3. Right below-knee amputation. 4. Dementia. 5. Diabetes. 6. Lactic acidosis, improving. 7. Penile bleeding, likely traumatic from Marley, now resolved Plan: Plan of Care Continue cefepime. Follow up repeat urine cultures. Follow up cultures and lab. Continue local wound care of left foot. Continue supportive care. VONNIE ARANDA MD Apr 12, 2020 08:36
[2020-04-12] MEDS: CARVEDILOL 12.5 MG TABLET. PO SCH ×2 (09:26→17:24)
[2020-04-12] MEDS: MULTIVITAMINS,THERAPEUTIC 5 ML ORAL LIQUID. PO SCH (09:26)
[2020-04-12] MEDS: ASCORBIC ACID 500 MG TABLET PO SCH (09:26)
[2020-04-12] MEDS: LACTOBACILLUS RHAMNOSUS GG 1 CAPSULE. PO SCH ×3 (09:26→17:24)
[2020-04-12] MEDS: ASPIRIN CHEWABLE 81 MG TABLET. PO SCH (09:27)
[2020-04-12] MEDS: ISOSORBIDE MONONITRATE ER 30 MG TAB.ER.24H PO SCH (09:27)
[2020-04-12] MEDS: DULoxetine HCL 30 MG CAPSULE.DR PO SCH (09:27)
[2020-04-12] MEDS: LISINOPRIL 20 MG TABLET PO PRN (09:27)
[2020-04-12] MEDS: CEFEPIME HCL IV Push 1 GM VIAL. IVP SCH ×2 (09:28→20:17)
[2020-04-12] MEDS: GABAPENTIN 300 MG CAPSULE. PO SCH (20:16)
[2020-04-12] MEDS: ATORVASTATIN CALCIUM 10 MG TABLET. PO SCH (20:16)
[2020-04-12] MEDS: LORazepam 0.5 MG TABLET PO PRN (20:16)
[2020-04-12] MEDS: INSULIN GLARGINE SYRINGE. SQ SCH (20:50)
[2020-04-13] VITALS (7 sets, daily range): BP systolic 112–197; BP diastolic 61–97
[2020-04-13] MEDS: MIDODRINE 2.5 MG TABLET PO SCH ×3 (06:30→18:03)
--- NOTE | 2020-04-13 08:30 | PDOC ---
Infectious Disease Note Subjective: Subjective Patient more alert Denies any complaints Discussed with RN No more bleeding from penile area Vital Signs: Vital Signs Vital Signs Date Time Temp Pulse Resp B/P (MAP) Pulse Ox O2 Delivery O2 Flow Rate FiO2 04/13/20 08:00 Room Air 04/13/20 07:00 97.4 74 16 190/97 (128 96 97.4 Physical Exam: PHYSICAL EXAM GENERAL: Well-developed, well-nourished male lying in bed, alert, awake, answers only few questions. HEENT: Normocephalic, atraumatic. No thrush. Poor dentition. NECK: Supple. LUNGS: Clear to auscultation. HEART: S1, S2, no murmurs. ABDOMEN: Soft, nontender, nondistended, no rebound, no guarding. GENITOURINARY: Marley in place with blood stained drainage from the surrounding area. EXTREMITIES: Right below-knee amputation. Left lower extremity callus with superficial wound on the left foot plantar aspect. No erythema. No underlying abscess NEUROLOGIC: Alert, awake. Communication is somewhat limited. Moves all 4 extremities. Medications: Inpatient Meds: Current Medications Medications (Trade) Dose Ordered Sig/Chay Start Time Stop Time Status Last Admin Dose Admin Albuterol Sulfate (Ventolin Neb Soln) 3 mg PRN Q4HRS PRN 04/09/20 08:30 Ascorbic Acid (Vitamin C) 500 mg DAILY 04/10/20 10:00 04/12/20 09:26 500 MG Aspirin (Aspirin Chewable) 81 mg DAILY 04/09/20 10:00 04/12/20 09:27 81 MG Atorvastatin Calcium (Lipitor) 10 mg QHS 04/09/20 21:00 04/12/20 20:16 10 MG Carvedilol (Coreg) 12.5 mg BIDWMEALS 04/09/20 10:00 04/12/20 17:24 12.5 MG Cefepime HCl (Maxipime) 1 gm Q12HR 04/11/20 13:00 04/12/20 20:17 1 GM Ceftriaxone Sodium (Rocephin) 1 gm Q24H 04/09/20 18:00 04/11/20 12:25 DC 04/10/20 17:58 1 GM Duloxetine HCl (Cymbalta) 60 mg DAILY 04/09/20 10:00 04/12/20 09:27 60 MG Ergocalciferol (Vitamin D2) 50,000 unit WEEKLY 04/09/20 10:00 04/09/20 09:56 50,000 UNIT Fluconazole (Diflucan) 100 mg 1X ONCE 04/08/20 18:30 04/08/20 18:31 DC 04/08/20 18:50 100 MG Gabapentin (Neurontin) 300 mg QHS 04/09/20 21:00 04/12/20 20:16 300 MG Insulin Glargine (Lantus Syringe) 10 unit QHS 04/09/20 21:00 04/12/20 20:50 10 UNIT Isosorbide Mononitrate (Imdur) 30 mg DAILY 04/09/20 10:00 04/12/20 09:27 30 MG Lactobacillus Rhamnosus (Culturelle) 1 cap TIDAC 04/09/20 11:30 04/12/20 17:24 1 CAP Lisinopril (Prinivil) 20 mg PRN DAILY PRN 04/09/20 09:00 04/12/20 09:27 20 MG Lorazepam (Ativan) 0.5 mg PRN Q6HRS PRN 04/09/20 21:00 04/12/20 20:16 0.5 MG Midodrine (Proamatine) 2.5 mg [id number] 04/09/20 13:00 04/12/20 17:24 2.5 MG Multivitamins (Thera M Plus) 1 tab DAILY 04/10/20 10:00 04/10/20 11:14 DC 04/10/20 10:48 1 TAB Multivitamins/ Minerals Therapeutic (Centrum Multivit-Mineral Liq) 5 ml DAILY 04/10/20 12:00 04/12/20 09:26 5 ML Ondansetron HCl (Zofran Odt) 4 mg PRN Q6HRS 04/09/20 08:30 Ondansetron HCl (Zofran) 4 mg PRN Q8HRS PRN 04/08/20 18:30 04/09/20 18:29 DC Sodium Chloride 1,000 ml @ 60 mls/hr [id number] 04/10/20 12:30 04/12/20 20:50 60 MLS/HR Labs: Lab Laboratory Tests Test 04/12/20 12:02 04/12/20 17:10 04/12/20 20:40 04/13/20 07:47 Glucose (Fingerstick) 188 mg/dL (70-99) 199 mg/dL (70-99) 304 mg/dL (70-99) 127 mg/dL (70-99) Micro GRAM STAIN Final Final GRAM NEGATIVE RODS:FEW GRAM POSITIVE COCCI:FEW SQUAMOUS EPI CELL:RARE PMN (WBCs):RARE Unless otherwise specified, Testing Performed by: [address] [address] For Inquires, the Physician may contact the Microbiology department at [phone] ANAEROBIC-AEROBIC CULTURE Preliminary Preliminary MANY GRAM NEGATIVE RODS on 04/11/20 at 1128 FINAL ID= [PSEUDOMONAS AERUGINOSA] MANY GRAM POSITIVE COCCI on 04/12/20 at 0956 FINAL ID= [STAPHYLOCOCCUS AUREUS] PSEUDOMONAS AERUGINOSA STAPHYLOCOCCUS AUREUS ANTIMICROBIAL SUSCEPTIBILITY Preliminary Comment NEG KAUR 56 PSEUDOMONAS AERUGINOSA ANTIBIOTIC RESULT INTERPRETATION AMIKACIN <=16 S AZTREONAM 16 I CEFTAZIDIME >16 R CIPROFLOXACIN <=0.25 S CEFEPIME 16 I CEFTAZIDIME/AVIBACTAM <=4 S GENTAMICIN <=2 S LEVOFLOXACIN <=0.5 S MEROPENEM <=1 S PIPERACILLIN/TAZOBACTAM 64 S TOBRAMYCIN <=2 S Unless otherwise specified, Testing Performed by: Objective: Assessment: 1. Catheter-associated urinary tract infection with chronic indwelling Marley in place with blood stained drainage from the penile area. Urine cultures shows multiple organisms, likely contaminant. 2. Left plantar chronic superficial wound with cultures positive for Pseudomonas (cefepime intermediate , Zosyn resistant )and staph aureus no surrounding cellulitis or abscess; could be contaminant 3. Right below-knee amputation. 4. Dementia. 5. Diabetes. 6. Lactic acidosis, improving. 7. Penile bleeding, likely traumatic from Marley, now resolved Plan: Plan of Care Discontinue cefepime Start Merrem and Dapto for now Follow-up staph aureus KAUR Follow up repeat urine cultures from April 11 Follow up cultures and lab. Continue local wound care of left foot. Continue supportive care. VONNIE ARANDA MD Apr 13, 2020 08:30
[2020-04-13] MEDS ORDERED: DAPTOmycin (GENERIC) IVPB 320 MG in IV NORMAL SALINE 50ML 50 ML IV SCH (09:00)
[2020-04-13] MEDS: LISINOPRIL 20 MG TABLET PO PRN (09:11)
[2020-04-13] MEDS: ASPIRIN CHEWABLE 81 MG TABLET. PO SCH (09:11)
[2020-04-13] MEDS: ISOSORBIDE MONONITRATE ER 30 MG TAB.ER.24H PO SCH (09:12)
[2020-04-13] MEDS: DULoxetine HCL 30 MG CAPSULE.DR PO SCH (09:12)
[2020-04-13] MEDS: LACTOBACILLUS RHAMNOSUS GG 1 CAPSULE. PO SCH ×3 (09:12→18:04)
[2020-04-13] MEDS: ASCORBIC ACID 500 MG TABLET PO SCH (09:12)
[2020-04-13] MEDS: CARVEDILOL 12.5 MG TABLET. PO SCH ×2 (09:13→18:04)
[2020-04-13] MEDS: MEROPENEM 500 MG in IV NORMAL SALINE 50ML 50 ML IV SCH ×3 (09:18→22:29)
[2020-04-13] MEDS: MULTIVITAMINS,THERAPEUTIC 5 ML ORAL LIQUID. PO SCH (10:19)
[2020-04-13] MEDS: LORazepam 0.5 MG TABLET PO PRN (20:24)
[2020-04-13] MEDS: ATORVASTATIN CALCIUM 10 MG TABLET. PO SCH (20:24)
[2020-04-13] MEDS: GABAPENTIN 300 MG CAPSULE. PO SCH (20:24)
[2020-04-13] MEDS: INSULIN GLARGINE SYRINGE. SQ SCH (20:32)
[2020-04-13] MEDS: IV NORMAL SALINE 1000ML BAG 1,000 ML IV SCH (23:50)
[2020-04-14 03:25] LABS: BASO % 1 % (0-3); EOS # 0.4 x10^3/uL (0.0-0.7); EOS % 8 % (0-3); HEMATOCRIT 31.8 % (39.0-53.0); HEMOGLOBIN 10.6 g/dL (13.0-17.5); LYMPH # 1.3 x10^3/uL (1.0-4.8); LYMPH % 27 % (24-48); MEAN CORPUSCULAR HEMOGLOBIN 28 pg (25-35); MEAN CORPUSCULAR HGB CONC 34 g/dL (31-37); MEAN CORPUSCULAR VOLUME 84 fL (79-100); MONO # 0.7 x10^3/uL (0.0-1.1); MONO % 15 % (0-9); NEUT # 2.3 x10^3/uL (1.8-7.7); NEUT % 49 % (31-73); PLATELET COUNT 165 x10^3/uL (140-400); RED CELL DISTRIBUTION WIDTH 15.2 % (11.5-14.5); WHITE BLOOD COUNT 4.6 x10^3/uL (4.0-11.0)
[2020-04-14 03:40] VITALS: BP 143/74
[2020-04-14 03:42] LABS: ALBUMIN 2.5 g/dL (3.4-5.0); ALBUMIN/GLOBULIN RATIO 0.6 (1.0-1.7); CALCIUM 8.1 mg/dL (8.5-10.1); GFR 71.4; POTASSIUM 3.8 mmol/L (3.5-5.1); TOTAL BILIRUBIN 0.3 mg/dL (0.2-1.0); TOTAL PROTEIN 6.7 g/dL (6.4-8.2)
[2020-04-14] MEDS: MEROPENEM 500 MG in IV NORMAL SALINE 50ML 50 ML IV SCH ×3 (05:59→17:05)
--- NOTE | 2020-04-14 06:42 | PDOC ---
Infectious Disease Note Subjective Subjective Patient more alert Denies any complaints but not too talkative Discussed with RN No more bleeding from penile area Vital Sign Vital Signs Vital Signs Date Time Temp Pulse Resp B/P (MAP) Pulse Ox O2 Delivery O2 Flow Rate FiO2 04/14/20 03:40 97.9 67 20 143/74 (97) 97 Room Air 97.9 Physical Exam PHYSICAL EXAM GENERAL: Well-developed, well-nourished male lying in bed, alert, awake, answers only few questions. HEENT: Normocephalic, atraumatic. No thrush. Poor dentition. NECK: Supple. LUNGS: Clear to auscultation. HEART: S1, S2, no murmurs. ABDOMEN: Soft, nontender, nondistended, no rebound, no guarding. GENITOURINARY: Marley in place with blood stained drainage from the surrounding area. EXTREMITIES: Right below-knee amputation. Left lower extremity callus with superficial wound on the left foot plantar aspect clean with iodine dressing. No erythema. No underlying abscess NEUROLOGIC: Alert, awake. Communication is somewhat limited. Moves all 4 extremities. Labs Lab Laboratory Tests Test 04/13/20 07:47 04/13/20 11:35 04/13/20 18:03 04/13/20 20:23 Glucose (Fingerstick) 127 mg/dL (70-99) 123 mg/dL (70-99) 294 mg/dL (70-99) 227 mg/dL (70-99) Test 04/14/20 03:00 White Blood Count 4.6 x10^3/uL (4.0-11.0) Red Blood Count 3.80 x10^6/uL (4.30-5.70) Hemoglobin 10.6 g/dL (13.0-17.5) Hematocrit 31.8 % (39.0-53.0) Mean Corpuscular Volume 84 fL (79-100) Mean Corpuscular Hemoglobin 28 pg (25-35) Mean Corpuscular Hemoglobin Concent 34 g/dL (31-37) Red Cell Distribution Width 15.2 % (11.5-14.5) Platelet Count 165 x10^3/uL (140-400) Neutrophils (%) (Auto) 49 % (31-73) Lymphocytes (%) (Auto) 27 % (24-48) Monocytes (%) (Auto) 15 % (0-9) Eosinophils (%) (Auto) 8 % (0-3) Basophils (%) (Auto) 1 % (0-3) Neutrophils # (Auto) 2.3 x10^3/uL (1.8-7.7) Lymphocytes # (Auto) 1.3 x10^3/uL (1.0-4.8) Monocytes # (Auto) 0.7 x10^3/uL (0.0-1.1) Eosinophils # (Auto) 0.4 x10^3/uL (0.0-0.7) Basophils # (Auto) 0.0 x10^3/uL (0.0-0.2) Sodium Level 139 mmol/L (136-145) Potassium Level 3.8 mmol/L (3.5-5.1) Chloride Level 104 mmol/L (98-107) Carbon Dioxide Level 30 mmol/L (21-32) Anion Gap 5 (6-14) Blood Urea Nitrogen 13 mg/dL (8-26) Creatinine 1.0 mg/dL (0.7-1.3) Estimated GFR (Cockcroft-Gault) 71.4 BUN/Creatinine Ratio 13 (6-20) Glucose Level 126 mg/dL (70-99) Calcium Level 8.1 mg/dL (8.5-10.1) Total Bilirubin 0.3 mg/dL (0.2-1.0) Aspartate Amino Transf (AST/SGOT) 21 U/L (15-37) Alanine Aminotransferase (ALT/SGPT) 21 U/L (16-63) Alkaline Phosphatase 150 U/L (46-116) Creatine Kinase 30 U/L (39-308) Total Protein 6.7 g/dL (6.4-8.2) Albumin 2.5 g/dL (3.4-5.0) Albumin/Globulin Ratio 0.6 (1.0-1.7) Micro WOUND GRAM STAIN Final Final GRAM NEGATIVE RODS:FEW GRAM POSITIVE COCCI:FEW SQUAMOUS EPI CELL:RARE PMN (WBCs):RARE Unless otherwise specified, Testing Performed by: [address] [address] For Inquires, the Physician may contact the Microbiology department at [phone] ANAEROBIC-AEROBIC CULTURE Preliminary Preliminary MANY GRAM NEGATIVE RODS on 04/11/20 at 1128 FINAL ID= [PSEUDOMONAS AERUGINOSA] MANY GRAM POSITIVE COCCI on 04/12/20 at 0956 FINAL ID= [STAPHYLOCOCCUS AUREUS (MRSA)] PSEUDOMONAS AERUGINOSA STAPHYLOCOCCUS AUREUS (MRSA) ANTIMICROBIAL SUSCEPTIBILITY Preliminary Comment Comment NEG KAUR 56 PSEUDOMONAS AERUGINOSA ANTIBIOTIC RESULT INTERPRETATION AMIKACIN <=16 S AZTREONAM 16 I CEFTAZIDIME >16 R CIPROFLOXACIN <=0.25 S CEFEPIME 16 I CEFTAZIDIME/AVIBACTAM <=4 S GENTAMICIN <=2 S LEVOFLOXACIN <=0.5 S MEROPENEM <=1 S PIPERACILLIN/TAZOBACTAM 64 S TOBRAMYCIN <=2 S CONTINUED ON NEXT PAGE RUN DATE: 04/13/20 [facility] *LIVE* PAGE 2 RUN TIME: 1024 Specimen Inquiry SPEC: [id number] PATIENT: KERIMICKY [id number] (Continued) Procedure Result ANTIMICROBIAL SUSCEPTIBILITY Preliminary (continued) POS KAUR TYPE 38 STAPHYLOCOCCUS AUREUS (MRSA) ANTIBIOTIC RESULT INTERPRETATION AZITHROMYCIN >4 R CLINDAMYCIN 0.5 R* CEFOXITIN SCREEN >4 POS CIPROFLOXACIN >2 R CEFTAROLINE <=0.5 S DAPTOMYCIN <=0.5 S ERYTHROMYCIN >4 R GENTAMICIN <=4 S INDUCIBLE CLINDAMYCIN >4/0.5 POS LINEZOLID 2 S LEVOFLOXACIN >4 R OXACILLIN >2 R PENICILLIN >2 R* RIFAMPIN <=1 S TRIMETHOPRIM/SULFAMETHOXAZOLE <=0.5/9.5 S TETRACYCLINE >8 R VANCOMYCIN 1 S Microbiology 04/11/20 Urine Culture - Final, Complete 04/09/20 Gram Stain - Final, Resulted 04/09/20 Aerobic and Anaerobic Culture - Preliminary, Resulted 04/09/20 Antimicrobic Susceptibility - Preliminary, Resulted 04/08/20 Blood Culture - Final, Complete NO GROWTH AFTER 5 DAYS Objective Assessment 1. Catheter-associated urinary tract infection with chronic indwelling Marley in place with blood stained drainage from the penile area. Urine cultures shows multiple organisms, likely contaminant on 2 occasions 2. Left plantar chronic superficial wound with cultures positive for Pseudomonas (cefepime intermediate , Zosyn resistant )and staph aureus no surrounding cellulitis or abscess; could be contaminant 3. Right below-knee amputation. 4. Dementia. 5. Diabetes. 6. Lactic acidosis, improving. 7. Penile bleeding, likely traumatic from Marley, now resolved Plan Plan of Care Discontinue cefepime Start Merrem 04/13 increase to q 6 04/14 and d/c Dapto 04/13 begin zyvox with neg blood cults. May be able to change to Cipro po if cults remain neg for additional organisma Follow up final cultures and lab. Continue local wound care of left foot. Continue supportive care. d/w nurse TOYA MAI MD Apr 14, 2020 06:42
[2020-04-14 07:00] VITALS: BP 152/81
[2020-04-14] MEDS: MIDODRINE 2.5 MG TABLET PO SCH ×3 (07:00→17:05)
[2020-04-14] MEDS: ISOSORBIDE MONONITRATE ER 30 MG TAB.ER.24H PO SCH (09:08)
[2020-04-14] MEDS: DULoxetine HCL 30 MG CAPSULE.DR PO SCH (09:08)
[2020-04-14] MEDS: MULTIVITAMINS,THERAPEUTIC 5 ML ORAL LIQUID. PO SCH (09:08)
[2020-04-14] MEDS: LACTOBACILLUS RHAMNOSUS GG 1 CAPSULE. PO SCH ×3 (09:08→17:04)
[2020-04-14] MEDS: LINEZOLID 600 MG TABLET PO SCH ×2 (09:09→21:38)
[2020-04-14] MEDS: CARVEDILOL 12.5 MG TABLET. PO SCH ×2 (09:09→16:55)
[2020-04-14] MEDS: ASPIRIN CHEWABLE 81 MG TABLET. PO SCH (09:09)
[2020-04-14] MEDS: ASCORBIC ACID 500 MG TABLET PO SCH (09:09)
--- NOTE | 2020-04-14 10:02 | PDOC ---
GENERAL General: late entry for 04/13. vss and afebrile awake and alert and more mentally with it. chest clear, heart regular, abdomen benign, ongoing iv antibiotics for catheter associated UTI. continue present. VITAL SIGNS/I&O Vital Signs/I&O: Vital Signs Date Time Temp Pulse Resp B/P (MAP) Pulse Ox O2 Delivery O2 Flow Rate FiO2 04/14/20 09:09 152/69 04/14/20 07:00 97.8 67 18 99 Room Air 97.8 I & O 04/13/20 04/13/20 04/14/20 15:00 23:00 07:00 Intake Total 240 ml Output Total 1000 ml 900 ml 1650 ml Balance -760 ml -900 ml -1650 ml ALLERGIES Allergies: Allergies Coded Allergies Type Severity Reaction Last Updated Verified Influenza Virus Vaccines Allergy Intermediate 05/09/17 Yes I S O L A T I O N *CONTACT* Allergy Unknown 05/12/17 Yes MEDS Medications: Current Medications Medications (Trade) Dose Ordered Sig/Chay Route PRN Reason Start Time Stop Time Status Last Admin Dose Admin Linezolid (Zyvox) 600 mg BID PO 04/14/20 09:00 04/14/20 09:09 LAB Lab: Laboratory Tests Test 04/13/20 11:35 04/13/20 18:03 04/13/20 20:23 04/14/20 03:00 Glucose (Fingerstick) 123 mg/dL (70-99) H 294 mg/dL (70-99) H 227 mg/dL (70-99) H White Blood Count 4.6 x10^3/uL (4.0-11.0) Red Blood Count 3.80 x10^6/uL (4.30-5.70) L Hemoglobin 10.6 g/dL (13.0-17.5) L Hematocrit 31.8 % (39.0-53.0) L Mean Corpuscular Volume 84 fL (79-100) Mean Corpuscular Hemoglobin 28 pg (25-35) Mean Corpuscular Hemoglobin Concent 34 g/dL (31-37) Red Cell Distribution Width 15.2 % (11.5-14.5) H Platelet Count 165 x10^3/uL (140-400) Neutrophils (%) (Auto) 49 % (31-73) Lymphocytes (%) (Auto) 27 % (24-48) Monocytes (%) (Auto) 15 % (0-9) H Eosinophils (%) (Auto) 8 % (0-3) H Basophils (%) (Auto) 1 % (0-3) Neutrophils # (Auto) 2.3 x10^3/uL (1.8-7.7) Lymphocytes # (Auto) 1.3 x10^3/uL (1.0-4.8) Monocytes # (Auto) 0.7 x10^3/uL (0.0-1.1) Eosinophils # (Auto) 0.4 x10^3/uL (0.0-0.7) Basophils # (Auto) 0.0 x10^3/uL (0.0-0.2) Sodium Level 139 mmol/L (136-145) Potassium Level 3.8 mmol/L (3.5-5.1) Chloride Level 104 mmol/L (98-107) Carbon Dioxide Level 30 mmol/L (21-32) Anion Gap 5 (6-14) L Blood Urea Nitrogen 13 mg/dL (8-26) Creatinine 1.0 mg/dL (0.7-1.3) Estimated GFR (Cockcroft-Gault) 71.4 BUN/Creatinine Ratio 13 (6-20) Glucose Level 126 mg/dL (70-99) H Calcium Level 8.1 mg/dL (8.5-10.1) L Total Bilirubin 0.3 mg/dL (0.2-1.0) Aspartate Amino Transferase (AST) 21 U/L (15-37) Alanine Aminotransferase (ALT) 21 U/L (16-63) Alkaline Phosphatase 150 U/L (46-116) H Creatine Kinase 30 U/L (39-308) L Total Protein 6.7 g/dL (6.4-8.2) Albumin 2.5 g/dL (3.4-5.0) L Albumin/Globulin Ratio 0.6 (1.0-1.7) L Test 04/14/20 08:23 Glucose (Fingerstick) 79 mg/dL (70-99) Laboratory Tests 04/14/20 03:00 Laboratory Tests 04/14/20 03:00 Justicifation of Admission Dx: Justifications for Admission: Justification of Admission Dx: Yes Sepsis: Infection LUISITO RUSSELL MD Apr 14, 2020 10:02
--- NOTE | 2020-04-14 10:03 | PDOC ---
GENERAL General: vss and afebrile. remains at less than normal mental status. chest clear, heart regular, abdomen benign. ID adjusting antibiotics. continue same. VITAL SIGNS/I&O Vital Signs/I&O: Vital Signs Date Time Temp Pulse Resp B/P (MAP) Pulse Ox O2 Delivery O2 Flow Rate FiO2 04/14/20 09:09 152/69 04/14/20 07:00 97.8 67 18 99 Room Air 97.8 I & O 04/13/20 04/13/20 04/14/20 15:00 23:00 07:00 Intake Total 240 ml Output Total 1000 ml 900 ml 1650 ml Balance -760 ml -900 ml -1650 ml ALLERGIES Allergies: Allergies Coded Allergies Type Severity Reaction Last Updated Verified Influenza Virus Vaccines Allergy Intermediate 05/09/17 Yes I S O L A T I O N *CONTACT* Allergy Unknown 05/12/17 Yes MEDS Medications: Current Medications Medications (Trade) Dose Ordered Sig/Chay Route PRN Reason Start Time Stop Time Status Last Admin Dose Admin Linezolid (Zyvox) 600 mg BID PO 04/14/20 09:00 04/14/20 09:09 LAB Lab: Laboratory Tests Test 04/13/20 11:35 04/13/20 18:03 04/13/20 20:23 04/14/20 03:00 Glucose (Fingerstick) 123 mg/dL (70-99) H 294 mg/dL (70-99) H 227 mg/dL (70-99) H White Blood Count 4.6 x10^3/uL (4.0-11.0) Red Blood Count 3.80 x10^6/uL (4.30-5.70) L Hemoglobin 10.6 g/dL (13.0-17.5) L Hematocrit 31.8 % (39.0-53.0) L Mean Corpuscular Volume 84 fL (79-100) Mean Corpuscular Hemoglobin 28 pg (25-35) Mean Corpuscular Hemoglobin Concent 34 g/dL (31-37) Red Cell Distribution Width 15.2 % (11.5-14.5) H Platelet Count 165 x10^3/uL (140-400) Neutrophils (%) (Auto) 49 % (31-73) Lymphocytes (%) (Auto) 27 % (24-48) Monocytes (%) (Auto) 15 % (0-9) H Eosinophils (%) (Auto) 8 % (0-3) H Basophils (%) (Auto) 1 % (0-3) Neutrophils # (Auto) 2.3 x10^3/uL (1.8-7.7) Lymphocytes # (Auto) 1.3 x10^3/uL (1.0-4.8) Monocytes # (Auto) 0.7 x10^3/uL (0.0-1.1) Eosinophils # (Auto) 0.4 x10^3/uL (0.0-0.7) Basophils # (Auto) 0.0 x10^3/uL (0.0-0.2) Sodium Level 139 mmol/L (136-145) Potassium Level 3.8 mmol/L (3.5-5.1) Chloride Level 104 mmol/L (98-107) Carbon Dioxide Level 30 mmol/L (21-32) Anion Gap 5 (6-14) L Blood Urea Nitrogen 13 mg/dL (8-26) Creatinine 1.0 mg/dL (0.7-1.3) Estimated GFR (Cockcroft-Gault) 71.4 BUN/Creatinine Ratio 13 (6-20) Glucose Level 126 mg/dL (70-99) H Calcium Level 8.1 mg/dL (8.5-10.1) L Total Bilirubin 0.3 mg/dL (0.2-1.0) Aspartate Amino Transferase (AST) 21 U/L (15-37) Alanine Aminotransferase (ALT) 21 U/L (16-63) Alkaline Phosphatase 150 U/L (46-116) H Creatine Kinase 30 U/L (39-308) L Total Protein 6.7 g/dL (6.4-8.2) Albumin 2.5 g/dL (3.4-5.0) L Albumin/Globulin Ratio 0.6 (1.0-1.7) L Test 04/14/20 08:23 Glucose (Fingerstick) 79 mg/dL (70-99) Laboratory Tests 04/14/20 03:00 Laboratory Tests 04/14/20 03:00 Justicifation of Admission Dx: Justifications for Admission: Justification of Admission Dx: Yes Sepsis: Infection LUISITO RUSSELL MD Apr 14, 2020 10:03
[2020-04-14 11:00] VITALS: BP 154/80
[2020-04-14] MEDS: IV NORMAL SALINE 1000ML BAG 1,000 ML IV SCH (13:02)
[2020-04-14 15:00] VITALS: BP 91/45
[2020-04-14 19:40] VITALS: BP 168/82
[2020-04-14] MEDS: ATORVASTATIN CALCIUM 10 MG TABLET. PO SCH (21:38)
[2020-04-14] MEDS: GABAPENTIN 300 MG CAPSULE. PO SCH (21:38)
[2020-04-14] MEDS: INSULIN GLARGINE SYRINGE. SQ SCH (21:45)
[2020-04-14 22:45] VITALS: BP 155/83
[2020-04-15] MEDS: MEROPENEM 500 MG in IV NORMAL SALINE 50ML 50 ML IV SCH ×2 (00:21→05:53)
[2020-04-15 03:45] VITALS: BP 178/92
[2020-04-15] MEDS: MIDODRINE 2.5 MG TABLET PO SCH ×3 (06:19→17:33)
--- NOTE | 2020-04-15 06:43 | PDOC ---
Infectious Disease Note Subjective Subjective Patient more alert Denies any complaints - no pain/F/c/S/N/V/d/SOA/rash Discussed with RN No more bleeding from penile area Vital Sign Vital Signs Vital Signs Date Time Temp Pulse Resp B/P (MAP) Pulse Ox O2 Delivery O2 Flow Rate FiO2 04/15/20 06:19 71 139/77 04/15/20 03:45 97.7 18 96 Room Air 97.7 Physical Exam PHYSICAL EXAM GENERAL: Well-developed, well-nourished male lying in bed, alert, awake, answering more questions. HEENT: Normocephalic, atraumatic. No thrush. Poor dentition. NECK: Supple. LUNGS: Clear to auscultation. HEART: S1, S2, no murmurs. ABDOMEN: Soft, nontender, nondistended, no rebound, no guarding. GENITOURINARY: Marley in place with blood stained drainage from the surrounding area. EXTREMITIES: Right below-knee amputation. Left lower extremity callus with superficial wound on the left foot plantar aspect clean with iodine dressing. No erythema. No underlying abscess NEUROLOGIC: Alert, awake. Communication is somewhat limited. Moves all 4 extremities. Labs Lab Laboratory Tests Test 04/14/20 08:23 04/14/20 12:03 04/14/20 17:05 04/14/20 20:58 Glucose (Fingerstick) 79 mg/dL (70-99) 143 mg/dL (70-99) 233 mg/dL (70-99) 335 mg/dL (70-99) Micro WOUND GRAM STAIN Final Final GRAM NEGATIVE RODS:FEW GRAM POSITIVE COCCI:FEW SQUAMOUS EPI CELL:RARE PMN (WBCs):RARE Unless otherwise specified, Testing Performed by: [address] [address] For Inquires, the Physician may contact the Microbiology department at [phone] ANAEROBIC-AEROBIC CULTURE Preliminary Preliminary MANY GRAM NEGATIVE RODS on 04/11/20 at 1128 FINAL ID= [PSEUDOMONAS AERUGINOSA] MANY GRAM POSITIVE COCCI on 04/12/20 at 0956 FINAL ID= [STAPHYLOCOCCUS AUREUS (MRSA)] PSEUDOMONAS AERUGINOSA STAPHYLOCOCCUS AUREUS (MRSA) ANTIMICROBIAL SUSCEPTIBILITY Preliminary Comment Comment NEG KAUR 56 PSEUDOMONAS AERUGINOSA ANTIBIOTIC RESULT INTERPRETATION AMIKACIN <=16 S AZTREONAM 16 I CEFTAZIDIME >16 R CIPROFLOXACIN <=0.25 S CEFEPIME 16 I CEFTAZIDIME/AVIBACTAM <=4 S GENTAMICIN <=2 S LEVOFLOXACIN <=0.5 S MEROPENEM <=1 S PIPERACILLIN/TAZOBACTAM 64 S TOBRAMYCIN <=2 S CONTINUED ON NEXT PAGE RUN DATE: 04/13/20 [place] [facility] *LIVE* PAGE 2 RUN TIME: 1024 Specimen Inquiry SPEC: [id number] PATIENT: KERIMICKY Jason [id number] (Continued) Procedure Result ANTIMICROBIAL SUSCEPTIBILITY Preliminary (continued) POS KAUR TYPE 38 STAPHYLOCOCCUS AUREUS (MRSA) ANTIBIOTIC RESULT INTERPRETATION AZITHROMYCIN >4 R CLINDAMYCIN 0.5 R* CEFOXITIN SCREEN >4 POS CIPROFLOXACIN >2 R CEFTAROLINE <=0.5 S DAPTOMYCIN <=0.5 S ERYTHROMYCIN >4 R GENTAMICIN <=4 S INDUCIBLE CLINDAMYCIN >4/0.5 POS LINEZOLID 2 S LEVOFLOXACIN >4 R OXACILLIN >2 R PENICILLIN >2 R* RIFAMPIN <=1 S TRIMETHOPRIM/SULFAMETHOXAZOLE <=0.5/9.5 S TETRACYCLINE >8 R VANCOMYCIN 1 S Microbiology 04/11/20 Urine Culture - Final, Complete 04/09/20 Gram Stain - Final, Resulted 04/09/20 Aerobic and Anaerobic Culture - Preliminary, Resulted 04/09/20 Antimicrobic Susceptibility - Preliminary, Resulted 04/08/20 Blood Culture - Final, Complete NO GROWTH AFTER 5 DAYS Objective Assessment 1. Catheter-associated urinary tract infection with chronic indwelling Marley in place with blood stained drainage from the penile area. Urine cultures shows multiple organisms, likely contaminant on 2 occasions 2. Left plantar chronic superficial wound with cultures positive for Pseudomonas (cefepime intermediate , Zosyn resistant )and staph aureus no surrounding cellulitis or abscess; could be contaminant 3. Right below-knee amputation. 4. Dementia. 5. Diabetes. 6. Lactic acidosis, improving. 7. Penile bleeding, likely traumatic from Marley, now resolved Plan Plan of Care Discontinue Merrem 04/13 and begin po cipro cont zyvox with neg blood cults. - would treat for 7 more days Continue local wound care of left foot. Continue supportive care. d/w nurse TOYA MAI MD Apr 15, 2020 06:43
[2020-04-15 07:00] VITALS: BP 157/81
[2020-04-15] MEDS: ASCORBIC ACID 500 MG TABLET PO SCH (08:42)
[2020-04-15] MEDS: ISOSORBIDE MONONITRATE ER 30 MG TAB.ER.24H PO SCH (08:42)
[2020-04-15] MEDS: MULTIVITAMINS,THERAPEUTIC 5 ML ORAL LIQUID. PO SCH (08:42)
[2020-04-15] MEDS: LACTOBACILLUS RHAMNOSUS GG 1 CAPSULE. PO SCH ×3 (08:42→17:36)
[2020-04-15] MEDS: ASPIRIN CHEWABLE 81 MG TABLET. PO SCH (08:42)
[2020-04-15] MEDS: DULoxetine HCL 30 MG CAPSULE.DR PO SCH (08:42)
[2020-04-15] MEDS: CIPROFLOXACIN HCL 250 MG TABLET. PO SCH ×2 (08:42→20:17)
[2020-04-15] MEDS: LINEZOLID 600 MG TABLET PO SCH ×2 (08:43→20:17)
[2020-04-15] MEDS: CARVEDILOL 12.5 MG TABLET. PO SCH ×2 (08:43→17:37)
[2020-04-15] MEDS: IV NORMAL SALINE 1000ML BAG 1,000 ML IV SCH (08:53)
[2020-04-15 11:00] VITALS: BP 107/53
[2020-04-15] MEDS ORDERED: CIPR250T30 PO (11:43)
[2020-04-15] MEDS ORDERED: LINE600T12 PO (11:43)
--- NOTE | 2020-04-15 11:45 | SNU/HH DC ---
DISCHARGE ORDERS DISCHARGE INFORMATION: DISCHARGE DATE: Apr 15, 2020 FINAL DIAGNOSIS Problems Medical Problems: (1) Altered mental status Status: Acute (2) Dehydration Status: Acute (3) Sepsis Status: Acute (4) UTI (urinary tract infection) Status: Acute CONDITION ON DISCHARGE: Stable CODE STATUS: Code Status: Full JAIL: SNF STAY <30 DAYS: Yes HOSPICE: HOSPICE: No HOSPICE EVAL & TREAT: No LTAC: ADMIT TO LTAC: No POST DISCHARGE ORDERS: ACTIVITY ORDERS: Activity as tolerated WEIGHT BEARING STATUS: As tolerated DIET AFTER DISCHARGE: ADA WOUND/INCISION CARE: Keep wound/cast CDI CHECKS AFTER DISCHARGE: CHECKS AFTER DISCHARGE: Check blood press - daily, Check blood sugar, ac/hs, Check your Temp as needed, Weigh Yourself Daily TREATMENT/EQUIPMENT ORDERS: ADAPTIVE EQUIPMENT NEEDED: None Physical Therapy For: Evalulation/Treatment Occupational Therapy For: Evaluation/Treatment DISCHARGE MEDICATIONS: Home Meds Active Scripts Linezolid (ZYVOX) 600 Mg Tablet, 600 MG PO BID for uti for 10 Days, #20 TAB Prov:LUISITO RUSSELL MD 04/15/20 Ciprofloxacin Hcl (CIPRO) 250 Mg Tablet, 500 MG PO BID for uti for 10 Days, #20 TAB Prov:LUISITO RUSSELL MD 04/15/20 Ondansetron (ONDANSETRON ODT) 4 Mg Tab.rapdis, 1 TAB PO PRN Q6-8HRS, #12 TAB Prov:BAR FOUNTAIN DO 03/20/20 Insulin Glargine,Hum.rec.anlog (LANTUS) 100 Unit/1 Ml Vial, 10 UNIT SQ QHS for diabetes for 30 Days, #1 EACH Prov:LUISITO RUSSELL MD 01/02/20 Atorvastatin Calcium (ATORVASTATIN CALCIUM) 10 Mg Tablet, 10 MG PO QHS, #30 TAB 6 Refills Prov:LUISITO RUSSELL MD 09/16/16 Midodrine Hcl (MIDODRINE HCL) 2.5 Mg Tablet, 2.5 MG PO [id number], #90 TAB 6 Refills Prov:LUISITO RUSSELL MD 09/16/16 Reported Medications Isosorbide Mononitrate (ISOSORBIDE MONONITRATE ER) 30 Mg Tab.er.24h, 30 MG PO DAILY for HTN, TAB.SR 10/18/19 Carvedilol (CARVEDILOL) 25 Mg Tablet, 12.5 MG PO BIDWMEALS for CARDIAC, TAB 09/05/19 Albuterol Sulfate (PROAIR HFA INHALER) 8.5 Gm Hfa.aer.ad, 2 PUFF IH PRN Q4-6HRS PRN for wheezing for 21 Days, #1 INHALER 0 Refills 09/05/19 Aspirin (ASPIRIN) 81 Mg Tab.chew, 1 TAB PO DAILY for CIRCULATION., #30 TAB 3 Refills 09/05/19 Ergocalciferol (Vitamin D2) (VITAMIN D2) 50,000 Unit Capsule, 1 CAP PO WEEKLY for SUPPLEMENT for 28 Days, #4 CAP 0 Refills 09/05/19 Lisinopril (Lisinopril) 40 Mg Tablet, 20 MG PO DAILY PRN for ELEVATED BP, SEE COMMENTS, TAB 09/05/19 Gabapentin (GABAPENTIN) 600 Mg Tablet, 300 MG PO QHS for NEUROGENIC PAIN, TAB 09/05/19 Acidoph/L.bulg/Bif.b/S.thermop (SALO-BID CAPLET) 1 Each Tablet, 1 EACH PO TIDAC, TAB 03/23/17 Duloxetine Hcl (DULOXETINE HCL) 60 Mg Capsule.dr, 60 MG PO DAILY for depression, CAP 09/12/16 Discontinued Scripts Cefpodoxime Proxetil (CEFPODOXIME PROXETIL) 100 Mg Tablet, 100 MG PO BID for UTI for 10 Days, #20 TAB Prov:BAR FOUNTAIN DO 03/20/20 Cephalexin (CEPHALEXIN) 250 Mg Capsule, 500 MG PO QID for uti for 3 Days, #24 CAP Prov:LUISITO RUSSELL MD 01/02/20 LUISITO RUSSELL MD Apr 15, 2020 11:45
--- NOTE | 2020-04-15 11:46 | PDOC ---
GENERAL General: vss and afebrile. awake and alert and mentally close to baseline. chest clear, heart regular, abdomen benign. ID has changed to po antibiotics so could [facility] if [facility] will [facility] a Thursday. dc orders written. sugars still labile but is his baseline. VITAL SIGNS/I&O Vital Signs/I&O: Vital Signs Date Time Temp Pulse Resp B/P (MAP) Pulse Ox O2 Delivery O2 Flow Rate FiO2 04/15/20 11:00 97.9 66 18 107/53 (71) 95 Room Air 97.9 I & O 04/14/20 04/14/20 04/15/20 15:00 23:00 07:00 Intake Total 480 ml 200 ml 480 ml Output Total 850 ml 1150 ml 1450 ml Balance -370 ml -950 ml -970 ml ALLERGIES Allergies: Allergies Coded Allergies Type Severity Reaction Last Updated Verified Influenza Virus Vaccines Allergy Intermediate 05/09/17 Yes I S O L A T I O N *CONTACT* Allergy Unknown 05/12/17 Yes MEDS Medications: Current Medications Medications (Trade) Dose Ordered Sig/Chay Route PRN Reason Start Time Stop Time Status Last Admin Dose Admin Meropenem 500 mg/ Sodium Chloride 50 ml @ 100 mls/hr Q6HRS IV 04/14/20 12:00 04/15/20 06:59 DC 04/15/20 05:53 Ciprofloxacin (Cipro) 500 mg BID PO 04/15/20 09:00 04/15/20 08:42 LAB Lab: Laboratory Tests Test 04/14/20 12:03 04/14/20 17:05 04/14/20 20:58 04/15/20 07:37 Glucose (Fingerstick) 143 mg/dL (70-99) H 233 mg/dL (70-99) H 335 mg/dL (70-99) H 184 mg/dL (70-99) H Justicifation of Admission Dx: Justifications for Admission: Justification of Admission Dx: Yes Sepsis: Infection LUISITO RUSSELL MD Apr 15, 2020 11:46
[2020-04-15 15:00] VITALS: BP 156/72
[2020-04-15 19:30] VITALS: BP 158/50
[2020-04-15] MEDS: ATORVASTATIN CALCIUM 10 MG TABLET. PO SCH (20:17)
[2020-04-15] MEDS: LORazepam 0.5 MG TABLET PO PRN (20:17)
[2020-04-15] MEDS: GABAPENTIN 300 MG CAPSULE. PO SCH (20:18)
[2020-04-15] MEDS: INSULIN GLARGINE SYRINGE. SQ SCH (20:29)
[2020-04-15 23:15] VITALS: BP 160/73
[2020-04-16] MEDS: IV NORMAL SALINE 1000ML BAG 1,000 ML IV SCH (02:43)
[2020-04-16 03:20] VITALS: BP 162/75
[2020-04-16 07:00] VITALS: BP 168/71
[2020-04-16] MEDS: MIDODRINE 2.5 MG TABLET PO SCH (07:00)
--- NOTE | 2020-04-16 07:20 | PDOC ---
GENERAL General: vss and afebrile. awake and alert and baseline confusion. chest clear, heart re gular, abdomen benign. wasn't discharged yesterday and probably will go to [facility] today. yesterday's orders are accurate. VITAL SIGNS/I&O Vital Signs/I&O: Vital Signs Date Time Temp Pulse Resp B/P (MAP) Pulse Ox O2 Delivery O2 Flow Rate FiO2 04/16/20 03:20 97.2 70 20 162/75 (104) 96 Room Air 97.2 I & O 04/15/20 04/15/20 04/16/20 15:00 23:00 07:00 Intake Total 480 ml 200 ml 100 ml Output Total 1200 ml 2350 ml Balance 480 ml -1000 ml -2250 ml ALLERGIES Allergies: Allergies Coded Allergies Type Severity Reaction Last Updated Verified Influenza Virus Vaccines Allergy Intermediate 05/09/17 Yes I S O L A T I O N *CONTACT* Allergy Unknown 05/12/17 Yes MEDS Medications: Current Medications Medications (Trade) Dose Ordered Sig/Chay Route PRN Reason Start Time Stop Time Status Last Admin Dose Admin Ciprofloxacin (Cipro) 500 mg BID PO 04/15/20 09:00 04/15/20 20:17 LAB Lab: Laboratory Tests Test 04/15/20 07:37 04/15/20 12:12 04/15/20 20:25 Glucose (Fingerstick) 184 mg/dL (70-99) H 269 mg/dL (70-99) H 337 mg/dL (70-99) H Justicifation of Admission Dx: Justifications for Admission: Justification of Admission Dx: Yes Sepsis: Infection LUISITO RUSSELL MD Apr 16, 2020 07:20
[2020-04-16] MEDS: CIPROFLOXACIN HCL 250 MG TABLET. PO SCH (08:32)
[2020-04-16] MEDS: ISOSORBIDE MONONITRATE ER 30 MG TAB.ER.24H PO SCH (08:32)
[2020-04-16] MEDS: LISINOPRIL 20 MG TABLET PO PRN (08:32)
[2020-04-16] MEDS: LINEZOLID 600 MG TABLET PO SCH (08:32)
[2020-04-16] MEDS: DULoxetine HCL 30 MG CAPSULE.DR PO SCH (08:32)
[2020-04-16] MEDS: ASCORBIC ACID 500 MG TABLET PO SCH (08:32)
[2020-04-16] MEDS: LACTOBACILLUS RHAMNOSUS GG 1 CAPSULE. PO SCH (08:33)
[2020-04-16] MEDS: ERGOCALCIFEROL (VITAMIN D2) 50,000 UNIT CAPSULE. PO SCH (08:33)
[2020-04-16] MEDS: CARVEDILOL 12.5 MG TABLET. PO SCH (08:33)
[2020-04-16] MEDS: MULTIVITAMINS,THERAPEUTIC 5 ML ORAL LIQUID. PO SCH (08:33)
[2020-04-16] MEDS: ASPIRIN CHEWABLE 81 MG TABLET. PO SCH (08:33)
[2020-04-16 10:11] VITALS: BP 129/71
--- NOTE | 2020-04-16 10:55 | NUR ---
SS following up with discharge planning. SS reviewed pt chart and discussed with pt RN. Pt accepted at [facility], ; fax [phone]. Discharge order on the chart. SS phoned and faxed discharge orders to [facility]. Pt will discharge today and go to [facility] at 1200. [facility] to provide transportation. Pt, pt's RN, and pt's family notified.
--- NOTE | 2020-04-16 13:31 | NUR ---
Discharge Note: MICKY SAAVEDRA [address] Discharge instructions and discharge home medications reviewed with nurse Pinzon at [facility] and a copy given. All questions have been answered and understanding verbalized. The following instructions and handouts were given: Patient final discharge package. Discontinued line and catheter intact.
== END 2020-04-16 12:20 | DRG 698 ==
LOC: ER 16:58 → 2 NORTH 18:42
PROVIDERS: ADMIT Family Medicine; ATTEND Family Medicine
DX: T83.518A Infection and inflammatory reaction due to other urinary catheter, initial encounter (principal); A41.9 Sepsis, unspecified organism; G92 Toxic encephalopathy; N39.0 Urinary tract infection, site not specified; E11.9 Type 2 diabetes mellitus without complications; E86.0 Dehydration; Z20.828 Contact with and (suspected) exposure to other viral communicable diseases; F03.90 Unspecified dementia, unspecified severity, without behavioral disturbance, psychotic disturbance, mood disturbance, and anxiety; B96.5 Pseudomonas (aeruginosa) (mallei) (pseudomallei) as the cause of diseases classified elsewhere; I10 Essential (primary) hypertension; N40.1 Benign prostatic hyperplasia with lower urinary tract symptoms; Y84.6 Urinary catheterization as the cause of abnormal reaction of the patient, or of later complication, without mention of misadventure at the time of the procedure; Z83.3 Family history of diabetes mellitus; Z87.440 Personal history of urinary (tract) infections; Z87.891 Personal history of nicotine dependence; Z89.511 Acquired absence of right leg below knee; Z86.14 Personal history of Methicillin resistant Staphylococcus aureus infection; Z88.7 Allergy status to serum and vaccine; Z79.899 Other long term (current) drug therapy
CPT/HCPCS: 36415; 70450; 71045; 80053; 81001; 82550; 82962; 83605; 83690; 84484; 85025; 85610; 85730; 87040; 87071; 87075; 87086; 87641; 93005; 96361; 96374; 99285; J0692; J0696; J0878; J1815; J2185; J7030; 97530-GO; 97530-GP; 97535-GO; G0378; U0003-CS

== ENCOUNTER 2020-05-06 19:22 | Inpatient (IN) | payer MEDICARE, BC ==
[~2020-05-06] VITALS: Ht 172.7 cm; Wt 64.1 kg
[~2020-05-06 19:22] MED LIST changes: -ASPI-612 PO; +ASPI-886 PO; +CIPR250T30 PO; +LINE600T12 PO
--- NOTE | 2020-05-06 20:08 | RAD ---
CHEST AP ONLY Clinical Indication: Reason: SOB / Spl. Instructions: / History: Comparison: AP chest, April 08, 2020. Findings: Apical lordotic positioning. The cardiomediastinal silhouette is normal. Lungs are clear. There is no pneumothorax. No pleural effusion is appreciated. No acute bone abnormality. There is arthropathy of the left shoulder. IMPRESSION: No acute cardiopulmonary process. Electronically signed by: Zachary Lopez MD (05/06/2020 8:05 PM) [facility]
[2020-05-06 20:19] LABS: BASO % 0 % (0-3); EOS % 0 % (0-3); HEMATOCRIT 33.8 % (39.0-53.0); HEMOGLOBIN 11.2 g/dL (13.0-17.5); LYMPH # 1.2 x10^3/uL (1.0-4.8); LYMPH % 13 % (24-48); MEAN CORPUSCULAR HEMOGLOBIN 28 pg (25-35); MEAN CORPUSCULAR HGB CONC 33 g/dL (31-37); MEAN CORPUSCULAR VOLUME 86 fL (79-100); MONO % 11 % (0-9); NEUT # 6.9 x10^3/uL (1.8-7.7); NEUT % 76 % (31-73); PLATELET COUNT 163 x10^3/uL (140-400); RED BLOOD COUNT 3.95 x10^6/uL (4.30-5.70); RED CELL DISTRIBUTION WIDTH 15.2 % (11.5-14.5); WHITE BLOOD COUNT 9.1 x10^3/uL (4.0-11.0)
[2020-05-06 20:20] LABS: BILIRUBIN,URINE NEGATIVE (NEG); CLARITY,URINE CLOUDY; COLOR,URINE YELLOW; NITRITE,URINE NEGATIVE (NEG); PH,URINE 5.5 (<5.0-8.0); PROTEIN,URINE 30 mg/dL (NEG-TRACE); UROBILINOGEN,URINE 0.2 mg/dL (0.2 mg/dL)
[2020-05-06 20:25] LABS: BACTERIA,URINE FEW /HPF (0-FEW); HYALINE CASTS, URINE FEW /HPF; RBC,URINE OCC /HPF (0-2); SQUAMOUS EPITHELIAL CELL,UR OCC /LPF
[2020-05-06 20:26] LABS: YEAST,URINE PRESENT /HPF
[2020-05-06 20:28] LABS: CALCIUM 8.1 mg/dL (8.5-10.1); CREATININE 1.9 mg/dL (0.7-1.3); POTASSIUM 4.4 mmol/L (3.5-5.1)
[2020-05-06] MEDS ORDERED: cefTRIAXone IV Push 1 GM VIAL. IVP ONE (20:30)
[2020-05-06] MEDS ORDERED: IV NORMAL SALINE 1000ML BAG 1,000 ML IV ONE (20:30)
[2020-05-06 20:34] LABS: ALBUMIN 2.7 g/dL (3.4-5.0); ALBUMIN/GLOBULIN RATIO 0.6 (1.0-1.7); TOTAL BILIRUBIN 0.7 mg/dL (0.2-1.0); TOTAL PROTEIN 7.6 g/dL (6.4-8.2)
[2020-05-06] MEDS ORDERED: ASPIRIN CHEWABLE 81 MG TABLET. PO ONE (21:00)
--- NOTE | 2020-05-06 21:14 | PHYS DOC ---
Past Medical History Past Medical History: Dementia, Diabetes-Type II, Hypertension, MRSA, Prostatitis, URI, UTI, Other Additional Past Medical Histor: enlarged prostate Past Surgical History: Other Additional Past Surgical Histo: R eye sx, R BKA Smoking Status: Former Smoker Alcohol Use: None Drug Use: None General Adult EDM: Chief Complaint: SHORTNESS OF BREATH HPI: HPI: Patient is a 84 year old male [facility] a chief complaint of shortness of breath. EMS state that there is any patients with COVID positive testing but patient was tested negative on April 30. Patient was tested again on May 03 but the result is not back yet. Patient has some food at the side of his mouth so there is question for aspiration. EMS staff states that patient was placed on 5 L oxygen and his oxygenation was 88%. Patient usually wears 4 L of oxygen at the [facility]. Patient does not verbal and does not ambulate. Review of Systems: Review of Systems: Unable to perform review of systems secondary to patient's mental status. Heart Score: HEART Score for Chest Pain: HEART Score for Chest Pain Response (Comments) Value History Moderately Suspicious 1 ECG Nonspecific Repolarizatio 1 Age > 65 2 Risk Factors 1 or 2 Risk Factors 1 Troponin >3 x Normal Limit 2 Total 7 Risk Factors: Risk Factors: DM, Current or recent (<one month) smoker, HTN, HLP, family history of CAD, obesity. Risk Scores: Score 0 - 3: 2.5% MACE over next 6 weeks - Discharge Home Score 4 - 6: 20.3% MACE over next 6 weeks - Admit for Clinical Observation Score 7 - 10: 72.7% MACE over next 6 weeks - Early Invasive Strategies Current Medications: Current Medications Medications (Trade) Dose Ordered Sig/[facility] Start Time Stop Time Status Last Admin Dose Admin Aspirin (Aspirin Chewable) 324 mg 1X ONCE 05/06/20 21:00 05/06/20 21:01 DC 05/06/20 21:02 324 MG Ceftriaxone Sodium (Rocephin) 1 gm 1X ONCE 05/06/20 20:30 05/06/20 20:32 DC 05/06/20 21:03 1 GM Sodium Chloride 1,000 ml @ 1,000 mls/hr 1X ONCE 05/06/20 20:30 05/06/20 21:29 05/06/20 21:04 1,000 MLS/HR Allergies: Allergies: Allergies Coded Allergies Type Severity Reaction Last Updated Verified Influenza Virus Vaccines Allergy Intermediate 05/09/17 Yes I S O L A T I O N *CONTACT* Allergy Unknown 05/12/17 Yes Physical Exam: PE: Constitutional: Patient looks cachectic. [] HENT: Normocephalic, atraumatic Neck: Normal range of motion, Cardiovascular: Heart rate regular rhythm Lungs & Thorax: Bilateral rhonchi [] Abdomen: Bowel sounds normal, soft, no tenderness. Suprapubic catheter in place Extremities: No tenderness, ROM intact Neurologic: Alert but not oriented to self Current Patient Data: Labs: Laboratory Tests Test 05/06/20 20:05 White Blood Count 9.1 x10^3/uL (4.0-11.0) Red Blood Count 3.95 x10^6/uL (4.30-5.70) L Hemoglobin 11.2 g/dL (13.0-17.5) L Hematocrit 33.8 % (39.0-53.0) L Mean Corpuscular Volume 86 fL (79-100) Mean Corpuscular Hemoglobin 28 pg (25-35) Mean Corpuscular Hemoglobin Concent 33 g/dL (31-37) Red Cell Distribution Width 15.2 % (11.5-14.5) H Platelet Count 163 x10^3/uL (140-400) Neutrophils (%) (Auto) 76 % (31-73) H Lymphocytes (%) (Auto) 13 % (24-48) L Monocytes (%) (Auto) 11 % (0-9) H Eosinophils (%) (Auto) 0 % (0-3) Basophils (%) (Auto) 0 % (0-3) Neutrophils # (Auto) 6.9 x10^3/uL (1.8-7.7) Lymphocytes # (Auto) 1.2 x10^3/uL (1.0-4.8) Monocytes # (Auto) 1.0 x10^3/uL (0.0-1.1) Eosinophils # (Auto) 0.0 x10^3/uL (0.0-0.7) Basophils # (Auto) 0.0 x10^3/uL (0.0-0.2) Urine Collection Type Unknown Urine Color Yellow Urine Clarity Cloudy Urine pH 5.5 (<5.0-8.0) Urine Specific Wray 1.015 (1.000-1.030) Urine Protein 30 mg/dL (NEG-TRACE) Urine Glucose (UA) 500 mg/dL (NEG) Urine Ketones (Stick) 15 mg/dL (NEG) Urine Blood Small (NEG) Urine Nitrite Negative (NEG) Urine Bilirubin Negative (NEG) Urine Urobilinogen Dipstick 0.2 mg/dL (0.2 mg/dL) Urine Leukocyte Esterase Large (NEG) Urine RBC Occ /HPF (0-2) Urine WBC 11-20 /HPF (0-4) Urine Squamous Epithelial Cells Occ /LPF Urine Bacteria Few /HPF (0-FEW) Urine Hyaline Casts Few /HPF Urine Mucus Mod /LPF Urine Yeast Present /HPF Sodium Level 130 mmol/L (136-145) L Potassium Level 4.4 mmol/L (3.5-5.1) Chloride Level 92 mmol/L (98-107) L Carbon Dioxide Level 19 mmol/L (21-32) L Anion Gap 19 (6-14) H Blood Urea Nitrogen 45 mg/dL (8-26) H Creatinine 1.9 mg/dL (0.7-1.3) H Estimated GFR (Cockcroft-Gault) 34.0 BUN/Creatinine Ratio 24 (6-20) H Glucose Level 460 mg/dL (70-99) H Lactic Acid Level 1.9 mmol/L (0.4-2.0) Calcium Level 8.1 mg/dL (8.5-10.1) L Total Bilirubin 0.7 mg/dL (0.2-1.0) Aspartate Amino Transferase (AST) 34 U/L (15-37) Alanine Aminotransferase (ALT) 16 U/L (16-63) Alkaline Phosphatase 120 U/L (46-116) H Troponin I Quantitative 0.153 ng/mL (0.000-0.055) PT-Pkh-A-Type Natriuretic Peptide 792 pg/mL (0-449) H Total Protein 7.6 g/dL (6.4-8.2) Albumin 2.7 g/dL (3.4-5.0) L Albumin/Globulin Ratio 0.6 (1.0-1.7) L Laboratory Tests 05/06/20 20:05 Laboratory Tests 7/5/20 20:05 Vital Signs: Vital Signs Date Time Temp Pulse Resp B/P (MAP) Pulse Ox O2 Delivery O2 Flow Rate FiO2 05/06/20 20:45 84 32 97/53 (68) 96 Nasal Cannula 4.0 05/06/20 19:22 99.2 99.2 EKG: EKG: [EKG interpretation: 21: 09 on 05/06/2020 HR: 79 Sinus rhythm Regular intervals Left axis deviation Nonspecific ST changes ] Radiology/Procedures: Radiology/Procedures: [] Impression: CXR IMPRESSION: No acute cardiopulmonary process. Course & Med Decision Making: Course & Med Decision Making Pertinent Labs and Imaging studies reviewed. (See chart for details) Chest x-ray shows no acute cardiopulmonary process. Troponin is elevated at 0.153. Patient is given aspirin. UA shows that patient has UTI. IV antibiotics started in the ER. Discussed case with Dr. holcomb from hospitalist service who accepts admission. Iselaon Disclaimer: Edilson Disclaimer: This electronic medical record was generated, in whole or in part, using a voice recognition dictation system. Departure Departure Impression: Primary Impression: NSTEMI, initial episode of care Additional Impression: UTI (urinary tract infection) Disposition: ADMITTED INPATIENT Admitting Physician: JOSE Condition: GUARDED Referrals: JANET JACOBO MD (PCP) Justicifation of Admission Dx: Justifications for Admission: Justification of Admission Dx: Yes Sepsis: Infection SD: Acute NSTEMI Comments: UTI COVID-19 Assessment: COVID-19 Patient Risks: Age 65 or older: Yes Sign of co-morbidity: Yes Exp to person + for COVID: Yes Exp to PUI: No Travel from affected area: No Lower respiratory symptoms: Yes Fever: No PPE Use: Full PPE with N95 mask or PAPR: Yes RONAN CANALES DO May 06, 2020 21:13
[2020-05-06] MEDS ORDERED: INSULIN REGULAR 100 UNIT/ML 3ML VIAL. SQ ONE (22:00)
[2020-05-06 23:06] VITALS: BP 95/52
[2020-05-07] VITALS (31 sets, daily range): BP systolic 76–170; BP diastolic 43–87
[2020-05-07 02:49] LABS: BASE EXCESS ABG -5 mmol/L (-3-3); HCO3 ABG 21 mmol/L (21-28); PCO2 ABG 40 mmHg (35-46); PO2 ABG 51 mmHg (65-108); SAT O2 ABG 83 % (92-99)
[2020-05-07 02:57] LABS: FIO2 ABG 100
[2020-05-07 03:24] LABS: ALBUMIN 2.5 g/dL (3.4-5.0); ALBUMIN/GLOBULIN RATIO 0.5 (1.0-1.7); CALCIUM 7.7 mg/dL (8.5-10.1); GFR 32.1; POTASSIUM 3.6 mmol/L (3.5-5.1); TOTAL BILIRUBIN 0.5 mg/dL (0.2-1.0); TOTAL PROTEIN 7.1 g/dL (6.4-8.2)
[2020-05-07] MEDS ORDERED: FUROSEMIDE 20 MG/2 ML VIAL. IVP ONE (03:30)
--- NOTE | 2020-05-07 05:37 | NUR ---
05/06/2020 2306: Pt arrived to floor via gurney accompanied by ER staff. Pt transferred to bed, tele placed and pulse ox connected. VS obtained - see flow sheet. When attempting to turn pt to removed excess linen, pt becomes very stiff and pushes against staff. With encouragement is able to relax muscles. Pt states has pain when asked but is unable to pinpoint where - grimacing noted with movement. Pt in brief - brief saturated. RN and aid removed - several areas of maceration/excoriation noted. Sacrum has both with underlying DTI. With changing of pt gown, both IV's placed in ED were dislodged - new 18 g placed in RFA with one attempt per this RN. Also noted with changing of gown dried yellow green sputum noted to bilat shoulders. 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 Old reservoir removed and new one placed. Old dried on yellow drainage noted to dorsal aspect of penis. Some yellow substance noted to be stuck to pt R inner arm. Warm bath wipes obtained and pt cleaned up - wounds noted during this time. Pics taken of wounds. Pt extrem noted to be cold and pale - pt given 2 extra blanket to warm up - temp with admission low. 0220: Pt sats dropped in the low 70's while pt on 5L per NC. RN went in room to assess pt. Pt had R hand clenched where pulse ox was - new pulse ox obtained and placed on L hand - sats did not improve. RN requested a non-rebreather and pt placed on that - see VS flow sheet for vitals at that time. Sats on NRB only increased to low 70's. Breathing more labored than before - RR increased to 28/min, subcostal, intercostal, supraclavicular retractions noted. Audible insp and exp wheezing noted. Gurgling also noted with resps. RN assessed lung sounds - more wet and rattly than at admission. Rapid response called at 0223. RT in room at 0237 - made 4 attempts to get blood gas with no success. RN obtained blood gas from R radial with one attempt. 20g placed in LFA per Michelle aJson RN with one attempt. BP cycled for every 5 min to monitor - see VS flow sheet. 0312: [address] Lau order. Pt had not had any UO since arrival to floor - will monitor for uo. Approximately 30 min after lasix administered, sm amt of UO noted in alcaraz tubing - urine cloudy yellow with sediment. Sats gradually improved to 100% on non-rebreather - with BP's being quite labile. Will continue to monitor pt status closely.
--- NOTE | 2020-05-07 08:59 | PDOC ---
Infectious Disease Note Vital Sign Vital Signs Vital Signs Date Time Temp Pulse Resp B/P (MAP) Pulse Ox O2 Delivery O2 Flow Rate FiO2 05/07/20 08:27 Non-Rebreather 15.0 05/07/20 07:00 97.2 97 32 141/62 (88) 98 97.2 Labs Lab Laboratory Tests Test 05/06/20 20:05 05/06/20 23:30 05/07/20 00:01 05/07/20 02:23 White Blood Count 9.1 x10^3/uL (4.0-11.0) Red Blood Count 3.95 x10^6/uL (4.30-5.70) Hemoglobin 11.2 g/dL (13.0-17.5) Hematocrit 33.8 % (39.0-53.0) Mean Corpuscular Volume 86 fL (79-100) Mean Corpuscular Hemoglobin 28 pg (25-35) Mean Corpuscular Hemoglobin Concent 33 g/dL (31-37) Red Cell Distribution Width 15.2 % (11.5-14.5) Platelet Count 163 x10^3/uL (140-400) Neutrophils (%) (Auto) 76 % (31-73) Lymphocytes (%) (Auto) 13 % (24-48) Monocytes (%) (Auto) 11 % (0-9) Eosinophils (%) (Auto) 0 % (0-3) Basophils (%) (Auto) 0 % (0-3) Neutrophils # (Auto) 6.9 x10^3/uL (1.8-7.7) Lymphocytes # (Auto) 1.2 x10^3/uL (1.0-4.8) Monocytes # (Auto) 1.0 x10^3/uL (0.0-1.1) Eosinophils # (Auto) 0.0 x10^3/uL (0.0-0.7) Basophils # (Auto) 0.0 x10^3/uL (0.0-0.2) Urine Collection Type Unknown Urine Color Yellow Urine Clarity Cloudy Urine pH 5.5 (<5.0-8.0) Urine Specific [place] 1.015 (1.000-1.030) Urine Protein 30 mg/dL (NEG-TRACE) Urine Glucose (UA) 500 mg/dL (NEG) Urine Ketones (Stick) 15 mg/dL (NEG) Urine Blood Small (NEG) Urine Nitrite Negative (NEG) Urine Bilirubin Negative (NEG) Urine Urobilinogen Dipstick 0.2 mg/dL (0.2 mg/dL) Urine Leukocyte Esterase Large (NEG) Urine RBC Occ /HPF (0-2) Urine WBC 11-20 /HPF (0-4) Urine Squamous Epithelial Cells Occ /LPF Urine Bacteria Few /HPF (0-FEW) Urine Hyaline Casts Few /HPF Urine Mucus Mod /LPF Urine Yeast Present /HPF Sodium Level 130 mmol/L (136-145) 133 mmol/L (136-145) Potassium Level 4.4 mmol/L (3.5-5.1) 3.6 mmol/L (3.5-5.1) Chloride Level 92 mmol/L (98-107) 95 mmol/L (98-107) Carbon Dioxide Level 19 mmol/L (21-32) 18 mmol/L (21-32) Anion Gap 19 (6-14) 20 (6-14) Blood Urea Nitrogen 45 mg/dL (8-26) 46 mg/dL (8-26) Creatinine 1.9 mg/dL (0.7-1.3) 2.0 mg/dL (0.7-1.3) Estimated GFR (Cockcroft-Gault) 34.0 32.1 BUN/Creatinine Ratio 24 (6-20) 23 (6-20) Glucose Level 460 mg/dL (70-99) 407 mg/dL (70-99) Lactic Acid Level 1.9 mmol/L (0.4-2.0) Calcium Level 8.1 mg/dL (8.5-10.1) 7.7 mg/dL (8.5-10.1) Total Bilirubin 0.7 mg/dL (0.2-1.0) 0.5 mg/dL (0.2-1.0) Aspartate Amino Transf (AST/SGOT) 34 U/L (15-37) 29 U/L (15-37) Alanine Aminotransferase (ALT/SGPT) 16 U/L (16-63) 12 U/L (16-63) Alkaline Phosphatase 120 U/L (46-116) 108 U/L (46-116) Troponin I Quantitative 0.153 ng/mL (0.000-0.055) 0.319 ng/mL (0.000-0.055) AD-Vrd-I-Type Natriuretic Peptide 792 pg/mL (0-449) Total Protein 7.6 g/dL (6.4-8.2) 7.1 g/dL (6.4-8.2) Albumin 2.7 g/dL (3.4-5.0) 2.5 g/dL (3.4-5.0) Albumin/Globulin Ratio 0.6 (1.0-1.7) 0.5 (1.0-1.7) O2 Saturation 83 % (92-99) Arterial Blood pH 7.34 (7.35-7.45) Arterial Blood pCO2 at Patient Temp 40 mmHg (35-46) Arterial Blood pO2 at Patient Temp 51 mmHg (65-108) Arterial Blood HCO3 21 mmol/L (21-28) Arterial Blood Base Excess -5 mmol/L (-3-3) FiO2 100 Test 05/07/20 02:45 Troponin I Quantitative 0.576 ng/mL (0.000-0.055) Objective Assessment CKD with AMANUEL Acute hypoxic resp failure ? UTI Elevated Troponin - ? type 2 NSTEMI Recent MRSA/Pseudomonas DM H/o C-diff Plan Plan of Care Add Daptomycin/Linezolid (for lung) and Meropenem F/u labs and cults/COVID test D/w Dr. Garcia 35 mins CC time Thank you # [id number] TOYA MAI MD May 07, 2020 08:59
--- NOTE | 2020-05-07 09:02 | EKG ---
[facility] [address] [place] [address] Test Date: 2020-05-06 Test Time: 21:09:47 Pat Name: MICKY SAAVEDRA Department: Room: Gender: M [employer] Super[employer]: : 1935 Requested By: RONAN CANALES Order Number: [id number] Reading MD: Measurements Intervals [place] Rate: 79 P: -23 [place]: 140 QRS: -31 QRSD: 112 T: 66 QT: 434 QTc: 499 Interpretive Statements SINUS RHYTHM ABNORMAL LEFT AXIS DEVIATION R-S TRANSITION ZONE IN V LEADS DISPLACED TO THE RIGHT LEFT ANTERIOR FASCICULAR BLOCK PROLONGED QT ABNORMAL ECG RI6.01 No previous ECG available for comparison
--- NOTE | 2020-05-07 09:02 | NUR ---
IP: Pt COVID test is pending per ED physician documentation. Pt also has a recent hx of mrsa in a L foot wound on 04/09/20. Pt to be in droplet and contact precautions.
[2020-05-07] MEDS ORDERED: FUROSEMIDE 40 MG/4 ML VIAL. IVP ONE (11:15)
[2020-05-07 11:48] LABS: BASE EXCESS ABG -6 mmol/L (-3-3); HCO3 ABG 19 mmol/L (21-28); PCO2 ABG 36 mmHg (35-46); PO2 ABG 197 mmHg (65-108); SAT O2 ABG 99 % (92-99)
[2020-05-07] MEDS: STERILE WATER for RESP 1,000 ML BAG. INH PRN ×2 (13:30→21:30)
--- NOTE | 2020-05-07 15:22 | PDOC2 ---
JOBY JAMIL PROFESSOR OF GENETICS 05/07/20 1521: CARDIAC CONSULT DATE OF CONSULT Date of Consult DATE: 05/07/20 TIME: 15:04 REASON FOR CONSULT Reason for Consult: NSTEMI REFERRING PHYSICIAN Referring Physician: Dr. Strickland SOURCE Source: Chart review HISTORY OF PRESENT ILLNESS HISTORY OF PRESENT ILLNESS This is an 84 yo male who present from nursing facility secondary to shortness of breath. HPI obtained from chart review as patient alert but not verbal presently. Reported tested negative for COVID 04/30. Re-tested 04/03, but results not known. Concerns for aspiration. PAST MEDICAL HISTORY Cardiovascular: CAD, CHF, HTN, Other (PAD s/p right BKA ) CENTRAL NERVOUS SYSTEM: Dementia Psych: Anxiety, Depression Musculoskeletal: Osteoarthritis Renal/: Chronic renal insuff, UTI, Benign prostatic enlarg. Endocrine: Diabetes PAST SURGICAL HISTORY Past Surgical History: Other (right BKA) FAMILY HISTORY Family History: Diabetes SOCIAL HISTORY ALCOHOL: none Drugs: None Lives: [facility] CURRENT MEDICATIONS CURRENT MEDICATIONS Current Medications Medications (Trade) Dose Ordered Sig/Chay Route PRN Reason Start Time Stop Time Status Last Admin Dose Admin Sodium Chloride 1,000 ml @ 1,000 mls/hr 1X ONCE IV 05/06/20 20:30 05/06/20 21:29 DC 05/06/20 21:04 Ceftriaxone Sodium (Rocephin) 1 gm 1X ONCE IVP 05/06/20 20:30 05/06/20 20:32 DC 05/06/20 21:03 Aspirin (Aspirin Chewable) 324 mg 1X ONCE PO 05/06/20 21:00 05/06/20 21:01 DC 05/06/20 21:02 Insulin Human Regular (HumuLIN R VIAL) 10 unit 1X ONCE SQ 05/06/20 22:00 05/06/20 22:01 DC 05/06/20 21:58 Furosemide (Lasix) 20 mg 1X ONCE IVP 05/07/20 03:30 05/07/20 03:31 DC 05/07/20 03:30 Furosemide (Lasix) 40 mg 1X ONCE IVP 05/07/20 11:15 05/07/20 11:16 DC 05/07/20 11:15 ALLERGIES ALLERGIES: Coded Allergies: Influenza Virus Vaccines (Verified Allergy, Intermediate, 05/09/17) I S O L A T I O N *CONTACT* (Verified Allergy, Unknown, 05/12/17) mrsa ROS Review of System unobtainable PHYSICAL EXAM General: Alert (nonverbal ) HEENT: Atraumatic, Mucous membr. moist/pink Lungs: Other (coarse throughout ) Heart: Regular rate Abdomen: Soft Extremities: Other (trace LLE edema. Right BKA) Neuro: Other (non-verbal ) Psych/Mental Status: Other (unable to assess ) MUSCULOSKELETAL: Osteoarthritic changes both hands VITALS/I&O VITALS/I&O: Vital Signs Date Time Temp Pulse Resp B/P (MAP) Pulse Ox O2 Delivery O2 Flow Rate FiO2 05/07/20 14:00 96 148/70 (96) 95 20.0 05/07/20 13:30 Vapotherm 05/07/20 13:00 98.0 98.0 05/07/20 11:09 30 I & O 05/06/20 05/06/20 05/07/20 15:00 23:00 07:00 Intake Total 1000 ml Output Total 550 ml 150 ml Balance 450 ml -150 ml LABS Lab: Laboratory Tests Test 05/06/20 20:05 05/06/20 23:30 05/07/20 00:01 05/07/20 02:23 White Blood Count 9.1 x10^3/uL (4.0-11.0) Red Blood Count 3.95 x10^6/uL (4.30-5.70) L Hemoglobin 11.2 g/dL (13.0-17.5) L Hematocrit 33.8 % (39.0-53.0) L Mean Corpuscular Volume 86 fL (79-100) Mean Corpuscular Hemoglobin 28 pg (25-35) Mean Corpuscular Hemoglobin Concent 33 g/dL (31-37) Red Cell Distribution Width 15.2 % (11.5-14.5) H Platelet Count 163 x10^3/uL (140-400) Neutrophils (%) (Auto) 76 % (31-73) H Lymphocytes (%) (Auto) 13 % (24-48) L Monocytes (%) (Auto) 11 % (0-9) H Eosinophils (%) (Auto) 0 % (0-3) Basophils (%) (Auto) 0 % (0-3) Neutrophils # (Auto) 6.9 x10^3/uL (1.8-7.7) Lymphocytes # (Auto) 1.2 x10^3/uL (1.0-4.8) Monocytes # (Auto) 1.0 x10^3/uL (0.0-1.1) Eosinophils # (Auto) 0.0 x10^3/uL (0.0-0.7) Basophils # (Auto) 0.0 x10^3/uL (0.0-0.2) Urine Collection Type Unknown Urine Color Yellow Urine Clarity Cloudy Urine pH 5.5 (<5.0-8.0) Urine Specific [place] 1.015 (1.000-1.030) Urine Protein 30 mg/dL (NEG-TRACE) Urine Glucose (UA) 500 mg/dL (NEG) Urine Ketones (Stick) 15 mg/dL (NEG) Urine Blood Small (NEG) Urine Nitrite Negative (NEG) Urine Bilirubin Negative (NEG) Urine Urobilinogen Dipstick 0.2 mg/dL (0.2 mg/dL) Urine Leukocyte Esterase Large (NEG) Urine RBC Occ /HPF (0-2) Urine WBC 11-20 /HPF (0-4) Urine Squamous Epithelial Cells Occ /LPF Urine Bacteria Few /HPF (0-FEW) Urine Hyaline Casts Few /HPF Urine Mucus Mod /LPF Urine Yeast Present /HPF Sodium Level 130 mmol/L (136-145) L 133 mmol/L (136-145) L Potassium Level 4.4 mmol/L (3.5-5.1) 3.6 mmol/L (3.5-5.1) Chloride Level 92 mmol/L (98-107) L 95 mmol/L (98-107) L Carbon Dioxide Level 19 mmol/L (21-32) L 18 mmol/L (21-32) L Anion Gap 19 (6-14) H 20 (6-14) H Blood Urea Nitrogen 45 mg/dL (8-26) H 46 mg/dL (8-26) H Creatinine 1.9 mg/dL (0.7-1.3) H 2.0 mg/dL (0.7-1.3) H Estimated GFR (Cockcroft-Gault) 34.0 32.1 BUN/Creatinine Ratio 24 (6-20) H 23 (6-20) H Glucose Level 460 mg/dL (70-99) H 407 mg/dL (70-99) H Lactic Acid Level 1.9 mmol/L (0.4-2.0) Calcium Level 8.1 mg/dL (8.5-10.1) L 7.7 mg/dL (8.5-10.1) L Total Bilirubin 0.7 mg/dL (0.2-1.0) 0.5 mg/dL (0.2-1.0) Aspartate Amino Transferase (AST) 34 U/L (15-37) 29 U/L (15-37) Alanine Aminotransferase (ALT) 16 U/L (16-63) 12 U/L (16-63) L Alkaline Phosphatase 120 U/L (46-116) H 108 U/L (46-116) Troponin I Quantitative 0.153 ng/mL (0.000-0.055) 0.319 ng/mL (0.000-0.055) JC-Mgm-K-Type Natriuretic Peptide 792 pg/mL (0-449) H Total Protein 7.6 g/dL (6.4-8.2) 7.1 g/dL (6.4-8.2) Albumin 2.7 g/dL (3.4-5.0) L 2.5 g/dL (3.4-5.0) L Albumin/Globulin Ratio 0.6 (1.0-1.7) L 0.5 (1.0-1.7) L O2 Saturation 83 % (92-99) L Arterial Blood pH 7.34 (7.35-7.45) L Arterial Blood pCO2 at Patient Temp 40 mmHg (35-46) Arterial Blood pO2 at Patient Temp 51 mmHg (65-108) L Arterial Blood HCO3 21 mmol/L (21-28) Arterial Blood Base Excess -5 mmol/L (-3-3) L FiO2 100 Test 05/07/20 02:45 05/07/20 09:08 05/07/20 11:30 Troponin I Quantitative 0.576 ng/mL (0.000-0.055) Glucose (Fingerstick) 361 mg/dL (70-99) H O2 Saturation 99 % (92-99) Arterial Blood pH 7.34 (7.35-7.45) L Arterial Blood pCO2 at Patient Temp 36 mmHg (35-46) Arterial Blood pO2 at Patient Temp 197 mmHg (65-108) H Arterial Blood HCO3 19 mmol/L (21-28) L Arterial Blood Base Excess -6 mmol/L (-3-3) L FiO2 100 nrm Laboratory Tests 05/06/20 20:05 Laboratory Tests 05/06/20 20:05 05/07/20 00:01 ECHOCARDIOGRAM ECHOCARDIOGRAM <Conclusion> The left ventricle is normal size. The left ventricular systolic function is normal and the ejection fraction is within normal range. The Ejection Fraction is 50-55%. There is borderline to mild concentric left ventricular hypertrophy. Doppler and Color Flow revealed no significant aortic regurgitation. There is no significant aortic valvular stenosis. Doppler and Color Flow revealed no mitral valve regurgitation noted. Doppler and Color Flow revealed trace tricuspid regurgitation with an estimated PAP of 19 mmHg. DATE: 12/27/19 1642 STRESS TEST STRESS TEST Conclusion 1. No evidence of EKG changes with stress testing. 2. Normal perfusion at stress/rest. 3. Diaphragmatic attenuation artifact. 4. Low risk study. 5. Normal EF at 55%. DATE: 09/15/17 1433 ASSESSMENT/PLAN ASSESSMENT/PLAN 1. Acute respiratory failure; on NRB. ? aspiration PNA 2. Acute on chronic systolic CHF; Echo 12/22 with preserved LV systolic function 3. NSTEMI; highest trop 0.5. Most probably type II, demand ischemia with multiple culprits noted 4. AMANUEL on CKD 5. Hypertension; controlled 6. Encephalopathy 7. CAD; details unknown 8. Diabetes, II; uncontrolled 9. PAD s/p right BKA 10. UTI Recommendations Mild diuresis with close monitoring of renal function Transfer to ICU ASA Repeat CXR ST eval Antibiotic therapy as per ID Supportive care Consider outpatient ischemic eval GURWINDER OCONNELL MD 05/08/20 1513: CARDIAC CONSULT ASSESSMENT/PLAN ASSESSMENT/PLAN Late entry for 05/07/2020 Patient seen and examined. Agree with above nurse practitioner note. Currently struggling with sepsis without any clear cardiovascular issues. Troponin elevation is likely secondary as noted above. Supportive care for now. JOBY JAMIL APRN May 07, 2020 15:21 GURWINDER OCONNELL MD May 08, 2020 15:13
--- NOTE | 2020-05-07 15:36 | NUR ---
Wound Care Photo assessment due to COVID 19 pending. Pt has wounds to penis and buttocks, recommend A&D ointment BID and PRN. Left foot recommend betadine daily. WC will follow up later this week.
[2020-05-07] MEDS ORDERED: DAPTOmycin (GENERIC) IVPB 380 MG in IV NORMAL SALINE 50ML 50 ML IV SCH (16:00)
--- NOTE | 2020-05-07 16:25 | PDOC ---
PULMONARY PROGRESS NOTES Vitals Vital Signs Date Time Temp Pulse Resp B/P (MAP) Pulse Ox O2 Delivery O2 Flow Rate FiO2 05/07/20 15:52 95 vepotherm 30.0 05/07/20 14:00 96 148/70 (96) 05/07/20 13:00 98.0 98.0 05/07/20 11:09 30 Labs Laboratory Tests Test 05/06/20 20:05 05/06/20 23:30 05/07/20 00:01 05/07/20 02:23 White Blood Count 9.1 x10^3/uL (4.0-11.0) Red Blood Count 3.95 x10^6/uL (4.30-5.70) Hemoglobin 11.2 g/dL (13.0-17.5) Hematocrit 33.8 % (39.0-53.0) Mean Corpuscular Volume 86 fL (79-100) Mean Corpuscular Hemoglobin 28 pg (25-35) Mean Corpuscular Hemoglobin Concent 33 g/dL (31-37) Red Cell Distribution Width 15.2 % (11.5-14.5) Platelet Count 163 x10^3/uL (140-400) Neutrophils (%) (Auto) 76 % (31-73) Lymphocytes (%) (Auto) 13 % (24-48) Monocytes (%) (Auto) 11 % (0-9) Eosinophils (%) (Auto) 0 % (0-3) Basophils (%) (Auto) 0 % (0-3) Neutrophils # (Auto) 6.9 x10^3/uL (1.8-7.7) Lymphocytes # (Auto) 1.2 x10^3/uL (1.0-4.8) Monocytes # (Auto) 1.0 x10^3/uL (0.0-1.1) Eosinophils # (Auto) 0.0 x10^3/uL (0.0-0.7) Basophils # (Auto) 0.0 x10^3/uL (0.0-0.2) Urine Collection Type Unknown Urine Color Yellow Urine Clarity Cloudy Urine pH 5.5 (<5.0-8.0) Urine Specific [place] 1.015 (1.000-1.030) Urine Protein 30 mg/dL (NEG-TRACE) Urine Glucose (UA) 500 mg/dL (NEG) Urine Ketones (Stick) 15 mg/dL (NEG) Urine Blood Small (NEG) Urine Nitrite Negative (NEG) Urine Bilirubin Negative (NEG) Urine Urobilinogen Dipstick 0.2 mg/dL (0.2 mg/dL) Urine Leukocyte Esterase Large (NEG) Urine RBC Occ /HPF (0-2) Urine WBC 11-20 /HPF (0-4) Urine Squamous Epithelial Cells Occ /LPF Urine Bacteria Few /HPF (0-FEW) Urine Hyaline Casts Few /HPF Urine Mucus Mod /LPF Urine Yeast Present /HPF Sodium Level 130 mmol/L (136-145) 133 mmol/L (136-145) Potassium Level 4.4 mmol/L (3.5-5.1) 3.6 mmol/L (3.5-5.1) Chloride Level 92 mmol/L (98-107) 95 mmol/L (98-107) Carbon Dioxide Level 19 mmol/L (21-32) 18 mmol/L (21-32) Anion Gap 19 (6-14) 20 (6-14) Blood Urea Nitrogen 45 mg/dL (8-26) 46 mg/dL (8-26) Creatinine 1.9 mg/dL (0.7-1.3) 2.0 mg/dL (0.7-1.3) Estimated GFR (Cockcroft-Gault) 34.0 32.1 BUN/Creatinine Ratio 24 (6-20) 23 (6-20) Glucose Level 460 mg/dL (70-99) 407 mg/dL (70-99) Lactic Acid Level 1.9 mmol/L (0.4-2.0) Calcium Level 8.1 mg/dL (8.5-10.1) 7.7 mg/dL (8.5-10.1) Total Bilirubin 0.7 mg/dL (0.2-1.0) 0.5 mg/dL (0.2-1.0) Aspartate Amino Transf (AST/SGOT) 34 U/L (15-37) 29 U/L (15-37) Alanine Aminotransferase (ALT/SGPT) 16 U/L (16-63) 12 U/L (16-63) Alkaline Phosphatase 120 U/L (46-116) 108 U/L (46-116) Troponin I Quantitative 0.153 ng/mL (0.000-0.055) 0.319 ng/mL (0.000-0.055) JA-Weo-Q-Type Natriuretic Peptide 792 pg/mL (0-449) Total Protein 7.6 g/dL (6.4-8.2) 7.1 g/dL (6.4-8.2) Albumin 2.7 g/dL (3.4-5.0) 2.5 g/dL (3.4-5.0) Albumin/Globulin Ratio 0.6 (1.0-1.7) 0.5 (1.0-1.7) O2 Saturation 83 % (92-99) Arterial Blood pH 7.34 (7.35-7.45) Arterial Blood pCO2 at Patient Temp 40 mmHg (35-46) Arterial Blood pO2 at Patient Temp 51 mmHg (65-108) Arterial Blood HCO3 21 mmol/L (21-28) Arterial Blood Base Excess -5 mmol/L (-3-3) FiO2 100 Test 05/07/20 02:45 05/07/20 09:08 05/07/20 11:30 Troponin I Quantitative 0.576 ng/mL (0.000-0.055) Glucose (Fingerstick) 361 mg/dL (70-99) O2 Saturation 99 % (92-99) Arterial Blood pH 7.34 (7.35-7.45) Arterial Blood pCO2 at Patient Temp 36 mmHg (35-46) Arterial Blood pO2 at Patient Temp 197 mmHg (65-108) Arterial Blood HCO3 19 mmol/L (21-28) Arterial Blood Base Excess -6 mmol/L (-3-3) FiO2 100 nr Laboratory Tests Test 05/06/20 20:05 05/06/20 23:30 05/07/20 00:01 05/07/20 02:23 White Blood Count 9.1 x10^3/uL (4.0-11.0) Red Blood Count 3.95 x10^6/uL (4.30-5.70) Hemoglobin 11.2 g/dL (13.0-17.5) Hematocrit 33.8 % (39.0-53.0) Mean Corpuscular Volume 86 fL (79-100) Mean Corpuscular Hemoglobin 28 pg (25-35) Mean Corpuscular Hemoglobin Concent 33 g/dL (31-37) Red Cell Distribution Width 15.2 % (11.5-14.5) Platelet Count 163 x10^3/uL (140-400) Neutrophils (%) (Auto) 76 % (31-73) Lymphocytes (%) (Auto) 13 % (24-48) Monocytes (%) (Auto) 11 % (0-9) Eosinophils (%) (Auto) 0 % (0-3) Basophils (%) (Auto) 0 % (0-3) Neutrophils # (Auto) 6.9 x10^3/uL (1.8-7.7) Lymphocytes # (Auto) 1.2 x10^3/uL (1.0-4.8) Monocytes # (Auto) 1.0 x10^3/uL (0.0-1.1) Eosinophils # (Auto) 0.0 x10^3/uL (0.0-0.7) Basophils # (Auto) 0.0 x10^3/uL (0.0-0.2) Urine Collection Type Unknown Urine Color Yellow Urine Clarity Cloudy Urine pH 5.5 (<5.0-8.0) Urine Specific [place] 1.015 (1.000-1.030) Urine Protein 30 mg/dL (NEG-TRACE) Urine Glucose (UA) 500 mg/dL (NEG) Urine Ketones (Stick) 15 mg/dL (NEG) Urine Blood Small (NEG) Urine Nitrite Negative (NEG) Urine Bilirubin Negative (NEG) Urine Urobilinogen Dipstick 0.2 mg/dL (0.2 mg/dL) Urine Leukocyte Esterase Large (NEG) Urine RBC Occ /HPF (0-2) Urine WBC 11-20 /HPF (0-4) Urine Squamous Epithelial Cells Occ /LPF Urine Bacteria Few /HPF (0-FEW) Urine Hyaline Casts Few /HPF Urine Mucus Mod /LPF Urine Yeast Present /HPF Sodium Level 130 mmol/L (136-145) 133 mmol/L (136-145) Potassium Level 4.4 mmol/L (3.5-5.1) 3.6 mmol/L (3.5-5.1) Chloride Level 92 mmol/L (98-107) 95 mmol/L (98-107) Carbon Dioxide Level 19 mmol/L (21-32) 18 mmol/L (21-32) Anion Gap 19 (6-14) 20 (6-14) Blood Urea Nitrogen 45 mg/dL (8-26) 46 mg/dL (8-26) Creatinine 1.9 mg/dL (0.7-1.3) 2.0 mg/dL (0.7-1.3) Estimated GFR (Cockcroft-Gault) 34.0 32.1 BUN/Creatinine Ratio 24 (6-20) 23 (6-20) Glucose Level 460 mg/dL (70-99) 407 mg/dL (70-99) Lactic Acid Level 1.9 mmol/L (0.4-2.0) Calcium Level 8.1 mg/dL (8.5-10.1) 7.7 mg/dL (8.5-10.1) Total Bilirubin 0.7 mg/dL (0.2-1.0) 0.5 mg/dL (0.2-1.0) Aspartate Amino Transf (AST/SGOT) 34 U/L (15-37) 29 U/L (15-37) Alanine Aminotransferase (ALT/SGPT) 16 U/L (16-63) 12 U/L (16-63) Alkaline Phosphatase 120 U/L (46-116) 108 U/L (46-116) Troponin I Quantitative 0.153 ng/mL (0.000-0.055) 0.319 ng/mL (0.000-0.055) DF-Gwr-C-Type Natriuretic Peptide 792 pg/mL (0-449) Total Protein 7.6 g/dL (6.4-8.2) 7.1 g/dL (6.4-8.2) Albumin 2.7 g/dL (3.4-5.0) 2.5 g/dL (3.4-5.0) Albumin/Globulin Ratio 0.6 (1.0-1.7) 0.5 (1.0-1.7) O2 Saturation 83 % (92-99) Arterial Blood pH 7.34 (7.35-7.45) Arterial Blood pCO2 at Patient Temp 40 mmHg (35-46) Arterial Blood pO2 at Patient Temp 51 mmHg (65-108) Arterial Blood HCO3 21 mmol/L (21-28) Arterial Blood Base Excess -5 mmol/L (-3-3) FiO2 100 Test 05/07/20 02:45 05/07/20 09:08 05/07/20 11:30 Troponin I Quantitative 0.576 ng/mL (0.000-0.055) Glucose (Fingerstick) 361 mg/dL (70-99) O2 Saturation 99 % (92-99) Arterial Blood pH 7.34 (7.35-7.45) Arterial Blood pCO2 at Patient Temp 36 mmHg (35-46) Arterial Blood pO2 at Patient Temp 197 mmHg (65-108) Arterial Blood HCO3 19 mmol/L (21-28) Arterial Blood Base Excess -6 mmol/L (-3-3) FiO2 100 nrm Medications Active Scripts Medications Dose Route/Sig Max Daily Dose Days Date Category Zyvox (Linezolid) 600 Mg Tablet 600 Mg PO BID 10 04/15/20 Rx Cipro (Ciprofloxacin Hcl) 250 Mg Tablet 500 Mg PO BID 10 04/15/20 Rx Ondansetron Odt (Ondansetron) 4 Mg Tab.rapdis 1 Tab PO PRN Q6-8HRS 03/20/20 Rx Lantus (Insulin Glargine,Hum.rec.anlog) 100 Unit/1 Ml Vial 10 Unit SQ QHS 30 01/02/20 Rx Isosorbide Mononitrate Er (Isosorbide Mononitrate) 30 Mg Tab.er.24h 30 Mg PO DAILY 10/18/19 Reported Carvedilol 25 Mg Tablet 12.5 Mg PO BIDWMEALS 09/05/19 Reported Proair Hfa Inhaler (Albuterol Sulfate) 8.5 Gm Hfa.aer.ad 2 Puff IH PRN Q4-6HRS PRN 21 09/05/19 Reported Aspirin 81 Mg Tab.chew 1 Tab PO DAILY 09/05/19 Reported Vitamin D2 (Ergocalciferol (Vitamin D2)) 50,000 Unit Capsule 1 Cap PO WEEKLY 28 09/05/19 Reported Lisinopril 40 Mg Tablet 20 Mg PO DAILY PRN 09/05/19 Reported Gabapentin 600 Mg Tablet 300 Mg PO QHS 09/05/19 Reported Emperatriz-Bid Caplet (Acidoph/L.bulg/Bif.b/S.thermop) 1 Each Tablet 1 Each PO TIDAC 03/23/17 Reported Atorvastatin Calcium 10 Mg Tablet 10 Mg PO QHS 09/16/16 Rx Midodrine Hcl 2.5 Mg Tablet 2.5 Mg PO [id number] 09/16/16 Rx Duloxetine Hcl 60 Mg Capsule. 60 Mg PO DAILY 09/12/16 Reported Impression . Full note dictated discussed with Dr. Baptiste agree with current medical management FAMILIA DUARTE MD May 07, 2020 16:25
--- NOTE | 2020-05-07 16:35 | RAD ---
EXAM: CHEST AP ONLY INDICATION: Reason: increased need for oxygen / Spl. Instructions: / History: . TECHNIQUE: Single view COMPARISON: 05/06/2020 chest x-ray FINDINGS: The heart size is normal. The great vessels appear unremarkable. There is no hilar or mediastinal mass. Lungs show persistent low lung volumes with increased interstitial markings and interval development of left basilar opacity, obscuring the left diaphragm. There is no pleural effusion or pneumothorax. There are no significant osseous abnormalities. IMPRESSION: Interval left basilar atelectasis or consolidation. Mild interval prominence of the pulmonary interstitium in the setting of persistent low lung volumes. Electronically signed by: Melissa Adam MD (05/07/2020 4:32 PM) [id number]
[2020-05-07] MEDS: MEROPENEM 500 MG in IV NORMAL SALINE 50ML 50 ML IV SCH ×2 (17:55→23:31)
[2020-05-07] MEDS ORDERED: DEXTROSE 50% 25 GM / 50ML DISP.SYRIN. IV PRN (19:45)
[2020-05-07] MEDS ORDERED: INSULIN LISPRO 300 UNITS/3 ML VIAL. SQ ONE (20:00)
[2020-05-07] MEDS: VITS A & D/LANOLIN TOPICAL OINTMENT 42GM TUBE. TP SCH (20:18)
[2020-05-07] MEDS: INSULIN GLARGINE SYRINGE. SQ SCH (20:19)
--- NOTE | 2020-05-07 20:32 | CONS ---
DATE OF CONSULTATION: 05/07/2020 ATTENDING PHYSICIAN: Lew Prater MD. REASON FOR CONSULTATION: The patient is seen in Pulmonary consultation at the request of Dr. Prater for hypoxemia, respiratory failure. HISTORY OF PRESENT ILLNESS: The patient is an 84-year-old male that presented from group home with chief complaints of shortness of breath. EMS states that the patient had previously been tested positive for SARS-CoV-2, was retested and was negative on 04/30. He was again tested on 05/03, the test is currently pending. The patient presents with increasing shortness of breath. He was on 5 liters of oxygen supplementation, saturating 88%. He normally wears 4 liters. He is currently in the Intensive Care Unit. I reviewed his repeat chest x-ray. There was some gastric distention, but no significant consolidation or infiltrates. The patient has been seen in consult by Infectious Disease service for the possibility of sepsis. I spoke with Dr. Narvaez. The patient was started on daptomycin, linezolid and meropenem. Cultures are currently pending. No further history is obtained from the patient himself. He was awake and alert when I saw him. PAST MEDICAL HISTORY: Remarkable for coronary artery disease, chronic heart failure, hypertension, peripheral arterial disease, status post right below-knee amputation. He has a history of dementia, anxiety, depression, osteoarthritis, chronic renal insufficiency, BPH and diabetes. PAST SURGICAL HISTORY: Right BKA. FAMILY HISTORY: Diabetes. SOCIAL HISTORY: He resides at a group home. ALLERGIES: TO INFLUENZA VACCINE. REVIEW OF SYSTEMS: Unobtainable secondary to the patient's condition. PHYSICAL EXAMINATION: VITAL SIGNS: Stable. O2 saturation was greater than 92%, currently on Vapotherm at 30 liters. HEENT: Eyes: The sclerae were nonicteric. NECK: Jugular venous distention was not elevated. LUNGS: Coarse breath sounds, no wheezes. CARDIOVASCULAR: Regular rate and rhythm with S1, S2. No S3. ABDOMEN: Soft, nontender, nondistended. EXTREMITIES: No clubbing or cyanosis. Evidence of previous BKA. LABORATORY DATA: Reviewed. White count was normal. Hemoglobin and hematocrit were noted. Arterial blood gas: PH of 7.34, PaCO2 of 40, pO2 of 51 on 100%. Repeat arterial blood gas, pO2 went up to 197. Electrolytes were deranged. BUN was elevated, creatinine was elevated. Troponin was elevated. IMPRESSION: 1. Acute hypoxemic respiratory failure. 2. Elevated troponin, suspect, and non-ST segment elevation myocardial infarction. 3. Acute on chronic systolic heart failure. 4. Possible aspiration pneumonia. 5. Acute on chronic kidney disease. 6. Hypertension. 7. Diabetes. 8. Toxic metabolic encephalopathy. 9. Possible sepsis. 10. History of SARS-CoV-2 positive. 11. 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 12. History of Clostridium difficile. PLAN: 1. Continue oxygen supplementation. 2. Continue daptomycin, linezolid and meropenem. 3. Follow up on SARS-CoV-2 testing. 4. Follow labs. 5. Follow Cardiology input. Total cumulative critical care time of 45 minutes reviewing data, labs, chest x-ray and formulating a plan. FAMILIA DUARTE MD DR: JAGUAR/vielka JOB#: [id number] / [id number]
--- NOTE | 2020-05-07 23:12 | CONS ---
DATE OF CONSULTATION: 05/07/2020 PATIENT'S ROOM: ICU 9. REQUESTING PHYSICIAN: Dr. August. REASON FOR CONSULTATION: Positive sepsis screen. HISTORY OF PRESENT ILLNESS: The patient is an 84-year-old gentleman with a history of right BKA, diabetes, dementia, chronic indwelling Marley and most recently had a wound on the bottom of his left foot. He was treated with ciprofloxacin towards the beginning of April. He was brought from the [facility] secondary to shortness of air, reportedly tested negative for COVID on 04/30/2020. On arrival here, he had a white count of 9.1 with a normal differential. His creatinine was 1.9, glucose was 460. His troponin was elevated at 0.153 and did increase most recently up to 0.576. He had a chest x-ray obtained on arrival showed no acute cardiopulmonary process. He has been afebrile, but he did drop his pressures into the 80s/40s and traditionally has been on room air, but was on 4 liters shortly after arriving, but currently he is up to flow rate of 20 on the Vapotherm. Currently, he is lying in bed. He has some coarse respirations. He is alert, but not answering questions today. PAST MEDICAL HISTORY: Positive for dementia, hypertension, longstanding diabetes, prostatitis, recurrent UTIs with E. coli, Morganella, Pseudomonas, Proteus. He has BPH, bladder outlet obstruction with chronic indwelling Marley, right below-knee amputation, left foot plantar wound infection with Pseudomonas. REVIEW OF SYSTEMS: Limited. He is not answering today. ALLERGIES: LISTED INFLUENZA VACCINE. SOCIAL HISTORY: Former beer drinker, nonsmoker, , lives at [place] currently. FAMILY HISTORY: Noncontributory. CURRENT MEDICATIONS: Aspirin. He received Rocephin x 1, Lasix, insulin. PHYSICAL EXAMINATION: VITAL SIGNS: He has been afebrile, temperature is 98 axillary, pulse 96, respiratory rate was 30, blood pressure 148/70, satting 95% on 20 liters. CONSTITUTIONAL: He is alert. There is no acute distress. HEENT: Oral cavity, pharynx has poor dentition. He has normal conjunctivae. NECK: Supple, without JVD. LUNGS: Some mild coarse sounds. HEART: S1, S2. ABDOMEN: Soft, nontender, nondistended. No rebound or guarding. GENITOURINARY: Marley is in place. 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 Left lower extremity, has a callus on the bottom of his foot. No signs of erythema, drainage, fluctuance. NEUROLOGICAL: He is alert, does try to answer some questions, but is very limited. LABORATORY DATA: White count 9.1 on arrival, hemoglobin 11.2, platelets of 163, neutrophils 76, lymphs are 13. Creatinine 2, glucose of 407. AST 29, ALT 12, alkaline phosphatase 108. Urinalysis, large leukocyte esterase, 11-20 wbc's, occasional squamous cells, negative nitrite. Chest x-ray was negative. IMPRESSION: 1. Chronic kidney disease with acute kidney injury. 2. Acute hypoxic respiratory failure. 3. Questionable urinary tract infection. 4. Elevated troponin, questionable type 2 non-ST elevation myocardial infarction. 5. Recent methicillin-resistant Staphylococcus aureus, Pseudomonas. 6. Diabetes. 7. History of Clostridium difficile. RECOMMENDATIONS: We will add daptomycin for blood stream, linezolid for lung along with meropenem. Follow up on his laboratory values, cultures, COVID test. This was discussed with Dr. Garcia. Spent 35 minutes of critical care time. TOYA MAI MD DR: ARELIS/vielka JOB#: [id number] / [id number] LUDIVINA
[2020-05-08] VITALS (24 sets, daily range): BP systolic 81–156; BP diastolic 37–86
[2020-05-08] MEDS: MEROPENEM 500 MG in IV NORMAL SALINE 50ML 50 ML IV SCH ×2 (05:21→21:46)
[2020-05-08 06:03] LABS: BASO % 0 % (0-3); EOS % 0 % (0-3); HEMATOCRIT 33.6 % (39.0-53.0); HEMOGLOBIN 11.2 g/dL (13.0-17.5); LYMPH # 0.9 x10^3/uL (1.0-4.8); LYMPH % 13 % (24-48); MEAN CORPUSCULAR HEMOGLOBIN 28 pg (25-35); MEAN CORPUSCULAR HGB CONC 33 g/dL (31-37); MEAN CORPUSCULAR VOLUME 85 fL (79-100); MONO # 0.5 x10^3/uL (0.0-1.1); MONO % 8 % (0-9); NEUT # 5.4 x10^3/uL (1.8-7.7); NEUT % 79 % (31-73); PLATELET COUNT 168 x10^3/uL (140-400); RED BLOOD COUNT 3.96 x10^6/uL (4.30-5.70); RED CELL DISTRIBUTION WIDTH 15.3 % (11.5-14.5); WHITE BLOOD COUNT 6.8 x10^3/uL (4.0-11.0)
[2020-05-08 06:26] LABS: ALBUMIN 2.1 g/dL (3.4-5.0); ALBUMIN/GLOBULIN RATIO 0.4 (1.0-1.7); CALCIUM 8.2 mg/dL (8.5-10.1); CREATININE 2.3 mg/dL (0.7-1.3); GFR 27.3; POTASSIUM 3.9 mmol/L (3.5-5.1); TOTAL BILIRUBIN 0.4 mg/dL (0.2-1.0); TOTAL PROTEIN 6.9 g/dL (6.4-8.2)
--- NOTE | 2020-05-08 07:20 | PDOC ---
Infectious Disease Note Subjective Subjective Off Vapotherm and on facemask Alert but not answering questions ROS ROS unable to obtain Vital Sign Vital Signs Vital Signs Date Time Temp Pulse Resp B/P (MAP) Pulse Ox O2 Delivery O2 Flow Rate FiO2 05/08/20 06:19 76 22 92/37 (55) 95 05/08/20 05:35 vapotherm 05/08/20 03:02 30.0 05/08/20 00:17 98.7 98.7 Physical Exam PHYSICAL EXAM CONSTITUTIONAL: He is alert. He is no acute distress. Appears comfortable HEENT: Oral cavity, pharynx has poor dentition, dry. He has normal conjunctivae. NECK: Supple, without JVD. LUNGS: CTA - no wheeze HEART: S1, S2. ABDOMEN: Soft, nontender, nondistended. No rebound or guarding. GENITOURINARY: Marley is in place. 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 Left lower extremity, LLE without edema. NEUROLOGICAL: He is alert, moved ext Labs Lab Laboratory Tests Test 05/07/20 09:08 05/07/20 11:30 05/07/20 19:14 05/07/20 21:26 Glucose (Fingerstick) 361 mg/dL (70-99) 521 mg/dL (70-99) 517 mg/dL (70-99) O2 Saturation 99 % (92-99) Arterial Blood pH 7.34 (7.35-7.45) Arterial Blood pCO2 at Patient Temp 36 mmHg (35-46) Arterial Blood pO2 at Patient Temp 197 mmHg (65-108) Arterial Blood HCO3 19 mmol/L (21-28) Arterial Blood Base Excess -6 mmol/L (-3-3) FiO2 100 nrm Test 05/08/20 04:40 05/08/20 05:40 Sodium Level 137 mmol/L (136-145) Potassium Level 3.9 mmol/L (3.5-5.1) Chloride Level 99 mmol/L (98-107) Carbon Dioxide Level 21 mmol/L (21-32) Anion Gap 17 (6-14) Blood Urea Nitrogen 60 mg/dL (8-26) Creatinine 2.3 mg/dL (0.7-1.3) Estimated GFR (Cockcroft-Gault) 27.3 BUN/Creatinine Ratio 26 (6-20) Glucose Level 462 mg/dL (70-99) Calcium Level 8.2 mg/dL (8.5-10.1) Total Bilirubin 0.4 mg/dL (0.2-1.0) Aspartate Amino Transf (AST/SGOT) 22 U/L (15-37) Alanine Aminotransferase (ALT/SGPT) 10 U/L (16-63) Alkaline Phosphatase 97 U/L (46-116) Total Protein 6.9 g/dL (6.4-8.2) Albumin 2.1 g/dL (3.4-5.0) Albumin/Globulin Ratio 0.4 (1.0-1.7) White Blood Count 6.8 x10^3/uL (4.0-11.0) Red Blood Count 3.96 x10^6/uL (4.30-5.70) Hemoglobin 11.2 g/dL (13.0-17.5) Hematocrit 33.6 % (39.0-53.0) Mean Corpuscular Volume 85 fL (79-100) Mean Corpuscular Hemoglobin 28 pg (25-35) Mean Corpuscular Hemoglobin Concent 33 g/dL (31-37) Red Cell Distribution Width 15.3 % (11.5-14.5) Platelet Count 168 x10^3/uL (140-400) Neutrophils (%) (Auto) 79 % (31-73) Lymphocytes (%) (Auto) 13 % (24-48) Monocytes (%) (Auto) 8 % (0-9) Eosinophils (%) (Auto) 0 % (0-3) Basophils (%) (Auto) 0 % (0-3) Neutrophils # (Auto) 5.4 x10^3/uL (1.8-7.7) Lymphocytes # (Auto) 0.9 x10^3/uL (1.0-4.8) Monocytes # (Auto) 0.5 x10^3/uL (0.0-1.1) Eosinophils # (Auto) 0.0 x10^3/uL (0.0-0.7) Basophils # (Auto) 0.0 x10^3/uL (0.0-0.2) Micro CXR IMPRESSION: Interval left basilar atelectasis or consolidation. Mild interval prominence of the pulmonary interstitium in the setting of persistent low lung volumes. Microbiology 05/06/20 Blood Culture - Preliminary, Resulted NO GROWTH AFTER 1 DAY Objective Assessment CKD with AMANUEL - slight worse today Acute hypoxic resp failure ? UTI -Procal -nml Elevated Troponin - ? type 2 NSTEMI Recent MRSA/Pseudomonas DM - not controlled H/o C-diff Plan Plan of Care Added Daptomycin/Linezolid (for lung) and Meropenem 05/07 F/u labs and cults/COVID test D/w nursing TOYA MAI MD May 08, 2020 07:20
[2020-05-08] MEDS: ASPIRIN RECTAL 300 MG SUPP. PR SCH (08:23)
[2020-05-08] MEDS: VITS A & D/LANOLIN TOPICAL OINTMENT 42GM TUBE. TP SCH ×2 (08:23→21:29)
--- NOTE | 2020-05-08 08:45 | PDOC ---
PULMONARY PROGRESS NOTES Subjective Patient not responsive to verbal command Vitals Vital Signs Date Time Temp Pulse Resp B/P (MAP) Pulse Ox O2 Delivery O2 Flow Rate FiO2 05/08/20 06:19 76 22 92/37 (55) 95 05/08/20 05:35 vapotherm 05/08/20 03:02 30.0 05/08/20 00:17 98.7 98.7 General: Alert Lungs: Crackles Cardiovascular: S1, S2 Abdomen: Soft Extremities: Other (Edema) Skin: Warm Labs Laboratory Tests Test 05/06/20 20:05 05/06/20 23:30 05/07/20 00:01 05/07/20 02:23 White Blood Count 9.1 x10^3/uL (4.0-11.0) Red Blood Count 3.95 x10^6/uL (4.30-5.70) Hemoglobin 11.2 g/dL (13.0-17.5) Hematocrit 33.8 % (39.0-53.0) Mean Corpuscular Volume 86 fL (79-100) Mean Corpuscular Hemoglobin 28 pg (25-35) Mean Corpuscular Hemoglobin Concent 33 g/dL (31-37) Red Cell Distribution Width 15.2 % (11.5-14.5) Platelet Count 163 x10^3/uL (140-400) Neutrophils (%) (Auto) 76 % (31-73) Lymphocytes (%) (Auto) 13 % (24-48) Monocytes (%) (Auto) 11 % (0-9) Eosinophils (%) (Auto) 0 % (0-3) Basophils (%) (Auto) 0 % (0-3) Neutrophils # (Auto) 6.9 x10^3/uL (1.8-7.7) Lymphocytes # (Auto) 1.2 x10^3/uL (1.0-4.8) Monocytes # (Auto) 1.0 x10^3/uL (0.0-1.1) Eosinophils # (Auto) 0.0 x10^3/uL (0.0-0.7) Basophils # (Auto) 0.0 x10^3/uL (0.0-0.2) Urine Collection Type Unknown Urine Color Yellow Urine Clarity Cloudy Urine pH 5.5 (<5.0-8.0) Urine Specific [place] 1.015 (1.000-1.030) Urine Protein 30 mg/dL (NEG-TRACE) Urine Glucose (UA) 500 mg/dL (NEG) Urine Ketones (Stick) 15 mg/dL (NEG) Urine Blood Small (NEG) Urine Nitrite Negative (NEG) Urine Bilirubin Negative (NEG) Urine Urobilinogen Dipstick 0.2 mg/dL (0.2 mg/dL) Urine Leukocyte Esterase Large (NEG) Urine RBC Occ /HPF (0-2) Urine WBC 11-20 /HPF (0-4) Urine Squamous Epithelial Cells Occ /LPF Urine Bacteria Few /HPF (0-FEW) Urine Hyaline Casts Few /HPF Urine Mucus Mod /LPF Urine Yeast Present /HPF Sodium Level 130 mmol/L (136-145) 133 mmol/L (136-145) Potassium Level 4.4 mmol/L (3.5-5.1) 3.6 mmol/L (3.5-5.1) Chloride Level 92 mmol/L (98-107) 95 mmol/L (98-107) Carbon Dioxide Level 19 mmol/L (21-32) 18 mmol/L (21-32) Anion Gap 19 (6-14) 20 (6-14) Blood Urea Nitrogen 45 mg/dL (8-26) 46 mg/dL (8-26) Creatinine 1.9 mg/dL (0.7-1.3) 2.0 mg/dL (0.7-1.3) Estimated GFR (Cockcroft-Gault) 34.0 32.1 BUN/Creatinine Ratio 24 (6-20) 23 (6-20) Glucose Level 460 mg/dL (70-99) 407 mg/dL (70-99) Lactic Acid Level 1.9 mmol/L (0.4-2.0) Calcium Level 8.1 mg/dL (8.5-10.1) 7.7 mg/dL (8.5-10.1) Total Bilirubin 0.7 mg/dL (0.2-1.0) 0.5 mg/dL (0.2-1.0) Aspartate Amino Transf (AST/SGOT) 34 U/L (15-37) 29 U/L (15-37) Alanine Aminotransferase (ALT/SGPT) 16 U/L (16-63) 12 U/L (16-63) Alkaline Phosphatase 120 U/L (46-116) 108 U/L (46-116) Troponin I Quantitative 0.153 ng/mL (0.000-0.055) 0.319 ng/mL (0.000-0.055) JT-Ppl-Q-Type Natriuretic Peptide 792 pg/mL (0-449) Total Protein 7.6 g/dL (6.4-8.2) 7.1 g/dL (6.4-8.2) Albumin 2.7 g/dL (3.4-5.0) 2.5 g/dL (3.4-5.0) Albumin/Globulin Ratio 0.6 (1.0-1.7) 0.5 (1.0-1.7) O2 Saturation 83 % (92-99) Arterial Blood pH 7.34 (7.35-7.45) Arterial Blood pCO2 at Patient Temp 40 mmHg (35-46) Arterial Blood pO2 at Patient Temp 51 mmHg (65-108) Arterial Blood HCO3 21 mmol/L (21-28) Arterial Blood Base Excess -5 mmol/L (-3-3) FiO2 100 Test 05/07/20 02:45 05/07/20 09:08 05/07/20 11:30 05/07/20 19:14 Troponin I Quantitative 0.576 ng/mL (0.000-0.055) Procalcitonin < 0.10 ng/mL (0.00-0.10) Glucose (Fingerstick) 361 mg/dL (70-99) 521 mg/dL (70-99) O2 Saturation 99 % (92-99) Arterial Blood pH 7.34 (7.35-7.45) Arterial Blood pCO2 at Patient Temp 36 mmHg (35-46) Arterial Blood pO2 at Patient Temp 197 mmHg (65-108) Arterial Blood HCO3 19 mmol/L (21-28) Arterial Blood Base Excess -6 mmol/L (-3-3) FiO2 100 nrm Test 05/07/20 21:26 05/08/20 04:40 05/08/20 05:40 Glucose (Fingerstick) 517 mg/dL (70-99) Sodium Level 137 mmol/L (136-145) Potassium Level 3.9 mmol/L (3.5-5.1) Chloride Level 99 mmol/L (98-107) Carbon Dioxide Level 21 mmol/L (21-32) Anion Gap 17 (6-14) Blood Urea Nitrogen 60 mg/dL (8-26) Creatinine 2.3 mg/dL (0.7-1.3) Estimated GFR (Cockcroft-Gault) 27.3 BUN/Creatinine Ratio 26 (6-20) Glucose Level 462 mg/dL (70-99) Calcium Level 8.2 mg/dL (8.5-10.1) Total Bilirubin 0.4 mg/dL (0.2-1.0) Aspartate Amino Transf (AST/SGOT) 22 U/L (15-37) Alanine Aminotransferase (ALT/SGPT) 10 U/L (16-63) Alkaline Phosphatase 97 U/L (46-116) Total Protein 6.9 g/dL (6.4-8.2) Albumin 2.1 g/dL (3.4-5.0) Albumin/Globulin Ratio 0.4 (1.0-1.7) White Blood Count 6.8 x10^3/uL (4.0-11.0) Red Blood Count 3.96 x10^6/uL (4.30-5.70) Hemoglobin 11.2 g/dL (13.0-17.5) Hematocrit 33.6 % (39.0-53.0) Mean Corpuscular Volume 85 fL (79-100) Mean Corpuscular Hemoglobin 28 pg (25-35) Mean Corpuscular Hemoglobin Concent 33 g/dL (31-37) Red Cell Distribution Width 15.3 % (11.5-14.5) Platelet Count 168 x10^3/uL (140-400) Neutrophils (%) (Auto) 79 % (31-73) Lymphocytes (%) (Auto) 13 % (24-48) Monocytes (%) (Auto) 8 % (0-9) Eosinophils (%) (Auto) 0 % (0-3) Basophils (%) (Auto) 0 % (0-3) Neutrophils # (Auto) 5.4 x10^3/uL (1.8-7.7) Lymphocytes # (Auto) 0.9 x10^3/uL (1.0-4.8) Monocytes # (Auto) 0.5 x10^3/uL (0.0-1.1) Eosinophils # (Auto) 0.0 x10^3/uL (0.0-0.7) Basophils # (Auto) 0.0 x10^3/uL (0.0-0.2) Laboratory Tests Test 05/07/20 09:08 05/07/20 11:30 05/07/20 19:14 05/07/20 21:26 Glucose (Fingerstick) 361 mg/dL (70-99) 521 mg/dL (70-99) 517 mg/dL (70-99) O2 Saturation 99 % (92-99) Arterial Blood pH 7.34 (7.35-7.45) Arterial Blood pCO2 at Patient Temp 36 mmHg (35-46) Arterial Blood pO2 at Patient Temp 197 mmHg (65-108) Arterial Blood HCO3 19 mmol/L (21-28) Arterial Blood Base Excess -6 mmol/L (-3-3) FiO2 100 nrm Test 05/08/20 04:40 05/08/20 05:40 Sodium Level 137 mmol/L (136-145) Potassium Level 3.9 mmol/L (3.5-5.1) Chloride Level 99 mmol/L (98-107) Carbon Dioxide Level 21 mmol/L (21-32) Anion Gap 17 (6-14) Blood Urea Nitrogen 60 mg/dL (8-26) Creatinine 2.3 mg/dL (0.7-1.3) Estimated GFR (Cockcroft-Gault) 27.3 BUN/Creatinine Ratio 26 (6-20) Glucose Level 462 mg/dL (70-99) Calcium Level 8.2 mg/dL (8.5-10.1) Total Bilirubin 0.4 mg/dL (0.2-1.0) Aspartate Amino Transf (AST/SGOT) 22 U/L (15-37) Alanine Aminotransferase (ALT/SGPT) 10 U/L (16-63) Alkaline Phosphatase 97 U/L (46-116) Total Protein 6.9 g/dL (6.4-8.2) Albumin 2.1 g/dL (3.4-5.0) Albumin/Globulin Ratio 0.4 (1.0-1.7) White Blood Count 6.8 x10^3/uL (4.0-11.0) Red Blood Count 3.96 x10^6/uL (4.30-5.70) Hemoglobin 11.2 g/dL (13.0-17.5) Hematocrit 33.6 % (39.0-53.0) Mean Corpuscular Volume 85 fL (79-100) Mean Corpuscular Hemoglobin 28 pg (25-35) Mean Corpuscular Hemoglobin Concent 33 g/dL (31-37) Red Cell Distribution Width 15.3 % (11.5-14.5) Platelet Count 168 x10^3/uL (140-400) Neutrophils (%) (Auto) 79 % (31-73) Lymphocytes (%) (Auto) 13 % (24-48) Monocytes (%) (Auto) 8 % (0-9) Eosinophils (%) (Auto) 0 % (0-3) Basophils (%) (Auto) 0 % (0-3) Neutrophils # (Auto) 5.4 x10^3/uL (1.8-7.7) Lymphocytes # (Auto) 0.9 x10^3/uL (1.0-4.8) Monocytes # (Auto) 0.5 x10^3/uL (0.0-1.1) Eosinophils # (Auto) 0.0 x10^3/uL (0.0-0.7) Basophils # (Auto) 0.0 x10^3/uL (0.0-0.2) Medications Active Scripts Medications Dose Route/Sig Max Daily Dose Days Date Category Zyvox (Linezolid) 600 Mg Tablet 600 Mg PO BID 10 04/15/20 Rx Cipro (Ciprofloxacin Hcl) 250 Mg Tablet 500 Mg PO BID 10 04/15/20 Rx Ondansetron Odt (Ondansetron) 4 Mg Tab.rapdis 1 Tab PO PRN Q6-8HRS 03/20/20 Rx Lantus (Insulin Glargine,Hum.rec.anlog) 100 Unit/1 Ml Vial 10 Unit SQ QHS 30 01/02/20 Rx Isosorbide Mononitrate Er (Isosorbide Mononitrate) 30 Mg Tab.er.24h 30 Mg PO DAILY 10/18/19 Reported Carvedilol 25 Mg Tablet 12.5 Mg PO BIDWMEALS 09/05/19 Reported Proair Hfa Inhaler (Albuterol Sulfate) 8.5 Gm Hfa.aer.ad 2 Puff IH PRN Q4-6HRS PRN 21 09/05/19 Reported Aspirin 81 Mg Tab.chew 1 Tab PO DAILY 09/05/19 Reported Vitamin D2 (Ergocalciferol (Vitamin D2)) 50,000 Unit Capsule 1 Cap PO WEEKLY 28 09/05/19 Reported Lisinopril 40 Mg Tablet 20 Mg PO DAILY PRN 09/05/19 Reported Gabapentin 600 Mg Tablet 300 Mg PO QHS 09/05/19 Reported Emperatriz-Bid Caplet (Acidoph/L.bulg/Bif.b/S.thermop) 1 Each Tablet 1 Each PO TIDAC 03/23/17 Reported Atorvastatin Calcium 10 Mg Tablet 10 Mg PO QHS 09/16/16 Rx Midodrine Hcl 2.5 Mg Tablet 2.5 Mg PO [id number] 09/16/16 Rx Duloxetine Hcl 60 Mg Capsule.dr 60 Mg PO DAILY 09/12/16 Reported Impression . IMPRESSION: 1. Acute hypoxemic respiratory failure. 2. Elevated troponin, suspect, and non-ST segment elevation myocardial infarction. 3. Acute on chronic systolic heart failure. 4. Possible aspiration pneumonia. 5. Acute on chronic kidney disease. 6. Hypertension. 7. Diabetes. 8. Toxic metabolic encephalopathy. 9. Possible sepsis. 10. History of SARS-CoV-2 positive. 11. 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 12. History of Clostridium difficile. Plan . We will continue current support 1. Continue oxygen supplementation. 2. Continue daptomycin, linezolid and meropenem. 3. Follow up on SARS-CoV-2 testing. 4. Follow labs. 5. Follow Cardiology input. Total cumulative critical care time of 45 minutes reviewing data, labs, chest x-ray and formulating a plan. FAMILIA DUARTE MD May 08, 2020 08:45
--- NOTE | 2020-05-08 11:03 | NUR ---
SS following for discharge planning. SS reviewed pt chart and discussed with pt RN. Pt is skilled rehabilitation resident from [facility], ; fax [phone]. Pt on IV Zyvox, Daptomycin, and Meropenem. Pt on 8 liter simple mask. COVID19 pending. Prior to skilled rehabilitation pt was from home with daughter. SS will continue to follow for discharge planning.
[2020-05-08] MEDS: INSULIN LISPRO 300 UNITS/3 ML VIAL. SQ SCH ×2 (12:00→17:45)
[2020-05-08] MEDS: INSULIN LISPRO 300 UNITS/3 ML VIAL. SQ PRN ×2 (12:32→17:38)
[2020-05-08] MEDS: IV NORMAL SALINE 1000ML BAG 1,000 ML IV SCH ×2 (12:34→21:51)
--- NOTE | 2020-05-08 14:19 | PDOC ---
JOBY JAMIL INSURANCE FOLLOW UP SPECIALIST 05/08/20 1419: CARDIO Progress Notes Date and Time Date of Service 05/08/20 Time of Evaluation 1040 Subjective Subjective: Other (on simple face mask, was pulling of vapotherm. nonverbal ) Vitals Vitals Vital Signs Date Time Temp Pulse Resp B/P (MAP) Pulse Ox O2 Delivery O2 Flow Rate FiO2 05/08/20 13:00 71 22 102/54 (70) 99 Simple Mask 8.0 05/08/20 12:00 98.3 98.3 Weight Weight [ ] Input and Output Intake and Output Intake and Output 05/08/20 07:00 Intake Total 450 ml Output Total 1200 ml Balance -750 ml Intake Oral 0 ml IV Total 450 ml Output Urine Total 1200 ml Laboratory Labs Laboratory Tests Test 05/07/20 19:14 05/07/20 21:26 05/08/20 04:40 05/08/20 05:40 Glucose (Fingerstick) 521 mg/dL (70-99) 517 mg/dL (70-99) Sodium Level 137 mmol/L (136-145) Potassium Level 3.9 mmol/L (3.5-5.1) Chloride Level 99 mmol/L (98-107) Carbon Dioxide Level 21 mmol/L (21-32) Anion Gap 17 (6-14) Blood Urea Nitrogen 60 mg/dL (8-26) Creatinine 2.3 mg/dL (0.7-1.3) Estimated GFR (Cockcroft-Gault) 27.3 BUN/Creatinine Ratio 26 (6-20) Glucose Level 462 mg/dL (70-99) Calcium Level 8.2 mg/dL (8.5-10.1) Total Bilirubin 0.4 mg/dL (0.2-1.0) Aspartate Amino Transf (AST/SGOT) 22 U/L (15-37) Alanine Aminotransferase (ALT/SGPT) 10 U/L (16-63) Alkaline Phosphatase 97 U/L (46-116) Total Protein 6.9 g/dL (6.4-8.2) Albumin 2.1 g/dL (3.4-5.0) Albumin/Globulin Ratio 0.4 (1.0-1.7) White Blood Count 6.8 x10^3/uL (4.0-11.0) Red Blood Count 3.96 x10^6/uL (4.30-5.70) Hemoglobin 11.2 g/dL (13.0-17.5) Hematocrit 33.6 % (39.0-53.0) Mean Corpuscular Volume 85 fL (79-100) Mean Corpuscular Hemoglobin 28 pg (25-35) Mean Corpuscular Hemoglobin Concent 33 g/dL (31-37) Red Cell Distribution Width 15.3 % (11.5-14.5) Platelet Count 168 x10^3/uL (140-400) Neutrophils (%) (Auto) 79 % (31-73) Lymphocytes (%) (Auto) 13 % (24-48) Monocytes (%) (Auto) 8 % (0-9) Eosinophils (%) (Auto) 0 % (0-3) Basophils (%) (Auto) 0 % (0-3) Neutrophils # (Auto) 5.4 x10^3/uL (1.8-7.7) Lymphocytes # (Auto) 0.9 x10^3/uL (1.0-4.8) Monocytes # (Auto) 0.5 x10^3/uL (0.0-1.1) Eosinophils # (Auto) 0.0 x10^3/uL (0.0-0.7) Basophils # (Auto) 0.0 x10^3/uL (0.0-0.2) Test 05/08/20 12:06 Glucose (Fingerstick) 472 mg/dL (70-99) Microbiology Micro Microbiology 05/06/20 Urine Culture - Preliminary, Resulted 05/06/20 Blood Culture - Preliminary, Resulted NO GROWTH AFTER 1 DAY Physical Exam HEENT: Neck Supple W Full Motion Chest: Symmetric LUNGS: Clear to Auscultation Heart: S1S2, RRR Abdomen: Soft N/T Neurology: alert, non-verbal Assessment Assessment 1. Acute respiratory failure; on NRB. ? aspiration PNA. Procalc normal. Repeat COVID pending 2. Acute on chronic systolic CHF; Echo 12/22 with preserved LV systolic function 3. NSTEMI; highest trop 0.5. Most probably type II, demand ischemia with multiple culprits noted. LVEF 50-55% 4. AMANUEL on CKD; Cr ^. IVFs 5. Hypertension; hypotensive overnight. Now low normotensive 6. Metabolic encephalopathy 7. CAD; details unknown 8. Diabetes, II; uncontrolled. as per IM 9. PAD s/p right BKA 10. UTI Recommendations Monitor fluid status closely Antibiotic therapy as per ID Supportive care Justicifation of Admission Dx: Justifications for Admission: Justification of Admission Dx: Yes Sepsis: Infection UT: Acute NSTEMI GURWINDER OCONNELL MD 05/08/20 1546: CARDIO Progress Notes Plan Plan Patient seen and examined. Agree with above nurse practitioner note. Supportive care. Echo from Dec 2019 WNL Attending Co-Sign Attending Co-Sign The patient was seen and interviewed as well as examined at the bedside. The chart was reviewed. The case was discussed. Agree with the plan of care. JOBY JAMIL APRN May 08, 2020 14:19 GURWINDER OCONNELL MD May 08, 2020 15:46
--- NOTE | 2020-05-08 17:04 | PDOC1 ---
History and Physical Date of Admission: Date of Admission DATE: 05/08/20 TIME: 17:02 Chief Complaint: Problems: (1) Cholecystitis (2) Abdominal pain (3) Elevated troponin (4) Altered mental status (5) Sepsis (6) Cervical muscle strain (7) NSTEMI, initial episode of care (8) Non-STEMI (non-ST elevated myocardial infarction) (9) Right bundle branch block (10) Tremors of nervous system (11) Melena (12) Orthostatic hypotension (13) UTI (urinary tract infection) (14) Dislodged Marley catheter (15) Weakness (16) Marley catheter problem (17) Diarrhea (18) Mental status change (19) Hyperglycemia Chief Complain: Chest pain History of Present Illness: HPI: Elderly male presents with chest pain he also has a recent history of COVID-19 patient has been admitted for further evaluation treatment with consultation to cardiology and to rule out recurrent COVID-19 Past Medical/Surgical History: PMH/PSH: Past Medical History: Dementia, Diabetes-Type II, Hypertension, MRSA, Prosta titis, URI, UTI, Other Additional Past Medical Histor: enlarged prostate Past Surgical History: Other Additional Past Surgical Histo: R eye sx, R BKA Smoking Status: Former Smoker Alcohol Use: None Drug Use: None Allergies: Allergies: Coded Allergies: Influenza Virus Vaccines (Verified Allergy, Intermediate, 05/09/17) I S O L A T I O N *CONTACT* (Verified Allergy, Unknown, 05/12/17) mrsa Family History: Family History: Coronary artery disease Social History: Social History: He does not drink smoke or take drugs Current Medications: Current Medications Current Medications Sodium Chloride 1,000 ml @ 1,000 mls/hr 1X ONCE IV Last administered on 05/06/20at 21:04; Start 05/06/20 at 20:30; Stop 05/06/20 at 21:29; Status DC Ceftriaxone Sodium (Rocephin) 1 gm 1X ONCE IVP Last administered on 05/06/20at 21:03; Start 05/06/20 at 20:30; Stop 05/06/20 at 20:32; Status DC Aspirin (Aspirin Chewable) 324 mg 1X ONCE PO Last administered on 05/06/20at 21:02; Start 05/06/20 at 21:00; Stop 05/06/20 at 21:01; Status DC Insulin Human Regular (HumuLIN R VIAL) 10 unit 1X ONCE SQ Last administered on 05/06/20at 21:58; Start 05/06/20 at 22:00; Stop 05/06/20 at 22:01; Status DC Furosemide (Lasix) 20 mg 1X ONCE IVP Last administered on 05/07/20at 03:30; Start 05/07/20 at 03:30; Stop 05/07/20 at 03:31; Status DC Furosemide (Lasix) 40 mg 1X ONCE IVP Last administered on 05/07/20at 11:15; Start 05/07/20 at 11:15; Stop 05/07/20 at 11:16; Status DC Sterile Water (WATER for RESP) 1,000 ml CONT PRN INH VIA VAPOTHERM DEVICE Last administered on 05/07/20at 21:30; Start 05/07/20 at 12:15 Aspirin (Aspirin Rectal Supp) 300 mg DAILY SD Last administered on 05/08/20at 08:23; Start 05/08/20 at 09:00 Meropenem 500 mg/ Sodium Chloride 50 ml @ 100 mls/hr Q6HRS IV Last administered on 05/08/20at 05:21; Start 05/07/20 at 18:00; Stop 05/08/20 at 09:41; Status DC Daptomycin 380 mg/ Sodium Chloride 50 ml @ 100 mls/hr Q48H IV Last administered on 05/07/20at 16:00; Start 05/07/20 at 16:00 Linezolid/Dextrose 300 ml @ 300 mls/hr Q12HR IV Last administered on 05/08/20at 08:22; Start 05/07/20 at 17:00 Vitamin A/Vitamin D (Vitamin A & D Ointment) 1 kimberly BID TP Last administered on 05/08/20at 08:23; Start 05/07/20 at 21:00 Insulin Glargine (Lantus Syringe) 10 unit QHS SQ Last administered on 05/07/20at 20:19; Start 05/07/20 at 21:00 Dextrose (Dextrose 50%-Water Syringe) 12.5 gm PRN Q15MIN PRN IV SEE COMMENTS; Start 05/07/20 at 19:45; Status Cancel Insulin Human Lispro (HumaLOG) 10 units 1X ONCE SQ Last administered on 05/07/20at 20:20; Start 05/07/20 at 20:00; Stop 05/07/20 at 20:01; Status DC Meropenem 500 mg/ Sodium Chloride 50 ml @ 100 mls/hr Q12HR IV ; Start 05/08/20 at 21:00 Lactobacillus Rhamnosus (Culturelle) 1 cap BID PO ; Start 05/08/20 at 21:00 Sodium Chloride 1,000 ml @ 75 mls/hr [id number] IV Last administered on 05/08/20at 12:34; Start 05/08/20 at 11:45 Insulin Human Lispro (HumaLOG) 0-9 UNITS Q6HRS SQ ; Start 05/08/20 at 12:00 Dextrose (Dextrose 50%-Water Syringe) 12.5 gm PRN Q15MIN PRN IV SEE COMMENTS; Start 05/08/20 at 11:45 Insulin Human Lispro (HumaLOG) 10 units Q6HRS PRN SQ glucose>300 Last administered on 05/08/20at 12:32; Start 05/08/20 at 12:30 Active Scripts Active Zyvox (Linezolid) 600 Mg Tablet 600 Mg PO BID 10 Days Cipro (Ciprofloxacin Hcl) 250 Mg Tablet 500 Mg PO BID 10 Days Ondansetron Odt (Ondansetron) 4 Mg Tab.rapdis 1 Tab PO PRN Q6-8HRS Lantus (Insulin Glargine,Hum.rec.anlog) 100 Unit/1 Ml Vial 10 Unit SQ QHS 30 Days Atorvastatin Calcium 10 Mg Tablet 10 Mg PO QHS Midodrine Hcl 2.5 Mg Tablet 2.5 Mg PO [id number] Reported Isosorbide Mononitrate Er (Isosorbide Mononitrate) 30 Mg Tab.er.24h 30 Mg PO AMINTA LY Carvedilol 25 Mg Tablet 12.5 Mg PO BIDWMEALS Proair Hfa Inhaler (Albuterol Sulfate) 8.5 Gm Hfa.aer.ad 2 Puff IH PRN Q4-6HRS P RN 21 Days Aspirin 81 Mg Tab.chew 1 Tab PO DAILY Vitamin D2 (Ergocalciferol (Vitamin D2)) 50,000 Unit Capsule 1 Cap PO WEEKLY 28 Days Lisinopril 40 Mg Tablet 20 Mg PO DAILY PRN Gabapentin 600 Mg Tablet 300 Mg PO QHS Emperatriz-Bid Caplet (Acidoph/L.bulg/Bif.b/S.thermop) 1 Each Tablet 1 Each PO TIDAC Duloxetine Hcl 60 Mg Capsule. 60 Mg PO DAILY ROS: Review of Systems Review of System REVIEW OF SYSTEMS: GENERAL: Denies weakness SKIN: No bruising, hair changes or rashes. EYES: No blurred, double or loss of vision. NOSE AND THROAT: No history of nosebleeds, hoarseness or sore throat. HEART: Complains of chest pain LUNGS: Denies cough, hemoptysis, wheezing or shortness of breath. GASTROINTESTINAL: Denies changes in appetite, nausea, vomiting, diarrhea or constipation. GENITOURINARY: No history of frequency, urgency, hesitancy or nocturia. NEUROLOGIC: Denies history of numbness, tingling, or tremor. PSYCHIATRIC: No history of panic, anxiety or depression. ENDOCRINE: No history of heat or cold intolerance, polyuria or polydipsia. EXTREMITIES: Denies joint pain, pain on walking or stiffness. Physical Exam: Vital Signs: Vital Signs Date Time Temp Pulse Resp B/P (MAP) Pulse Ox O2 Delivery O2 Flow Rate FiO2 05/08/20 13:00 71 22 102/54 (70) 99 Simple Mask 8.0 05/08/20 12:00 98.3 98.3 Physcial Exam: GEN: No apparent distress. Alert and oriented HEENT: Normal cephalic, atraumatic, external auditory canals are patent EYES: Extraocular muscles are intact, pupil are equally round and reactive to light and accommodation MUSCULOSKELETAL: Well developed , well nourished, good range of motion ENDOCRINE: No thyromegaly was palpated LYMPHATICS: No cervical chain or axillary nodes were noted HEMATOPOIETIC: No bruising NECK: Supple, no JVD, no thyromegaly was noted LUNGS: Clear to auscultation in all lung angel without rhonchi or wheezing HEART: RRR, S!, S2 present. Peripheral pulses intact, no obvious murmurs noted ABDOMEN: Soft, nontender. Positive bowel sounds, no organomegaly, normal bowel sounds EXTREMITIES: Without clubbing, cyanosis, or edema. Pedal pulses intact. Negative Homans sign NEUROLOGIC: Normal speech and tone. A&O x 3, moves all extremities, no obvious focal deficits PSYCHIATRIC: Normal affect, normal mood. Stable SKIN: No ulcerations or rashes, good skin turgor, no jaundice VASCULAR: Good capillary refill, neurovascular bundle appears to be intact Labs: Labs: Laboratory Tests Test 05/06/20 20:05 05/06/20 23:30 05/07/20 00:01 05/07/20 02:23 White Blood Count 9.1 x10^3/uL (4.0-11.0) Red Blood Count 3.95 x10^6/uL (4.30-5.70) Hemoglobin 11.2 g/dL (13.0-17.5) Hematocrit 33.8 % (39.0-53.0) Mean Corpuscular Volume 86 fL (79-100) Mean Corpuscular Hemoglobin 28 pg (25-35) Mean Corpuscular Hemoglobin Concent 33 g/dL (31-37) Red Cell Distribution Width 15.2 % (11.5-14.5) Platelet Count 163 x10^3/uL (140-400) Neutrophils (%) (Auto) 76 % (31-73) Lymphocytes (%) (Auto) 13 % (24-48) Monocytes (%) (Auto) 11 % (0-9) Eosinophils (%) (Auto) 0 % (0-3) Basophils (%) (Auto) 0 % (0-3) Neutrophils # (Auto) 6.9 x10^3/uL (1.8-7.7) Lymphocytes # (Auto) 1.2 x10^3/uL (1.0-4.8) Monocytes # (Auto) 1.0 x10^3/uL (0.0-1.1) Eosinophils # (Auto) 0.0 x10^3/uL (0.0-0.7) Basophils # (Auto) 0.0 x10^3/uL (0.0-0.2) Urine Collection Type Unknown Urine Color Yellow Urine Clarity Cloudy Urine pH 5.5 (<5.0-8.0) Urine Specific [place] 1.015 (1.000-1.030) Urine Protein 30 mg/dL (NEG-TRACE) Urine Glucose (UA) 500 mg/dL (NEG) Urine Ketones (Stick) 15 mg/dL (NEG) Urine Blood Small (NEG) Urine Nitrite Negative (NEG) Urine Bilirubin Negative (NEG) Urine Urobilinogen Dipstick 0.2 mg/dL (0.2 mg/dL) Urine Leukocyte Esterase Large (NEG) Urine RBC Occ /HPF (0-2) Urine WBC 11-20 /HPF (0-4) Urine Squamous Epithelial Cells Occ /LPF Urine Bacteria Few /HPF (0-FEW) Urine Hyaline Casts Few /HPF Urine Mucus Mod /LPF Urine Yeast Present /HPF Sodium Level 130 mmol/L (136-145) 133 mmol/L (136-145) Potassium Level 4.4 mmol/L (3.5-5.1) 3.6 mmol/L (3.5-5.1) Chloride Level 92 mmol/L (98-107) 95 mmol/L (98-107) Carbon Dioxide Level 19 mmol/L (21-32) 18 mmol/L (21-32) Anion Gap 19 (6-14) 20 (6-14) Blood Urea Nitrogen 45 mg/dL (8-26) 46 mg/dL (8-26) Creatinine 1.9 mg/dL (0.7-1.3) 2.0 mg/dL (0.7-1.3) Estimated GFR (Cockcroft-Gault) 34.0 32.1 BUN/Creatinine Ratio 24 (6-20) 23 (6-20) Glucose Level 460 mg/dL (70-99) 407 mg/dL (70-99) Lactic Acid Level 1.9 mmol/L (0.4-2.0) Calcium Level 8.1 mg/dL (8.5-10.1) 7.7 mg/dL (8.5-10.1) Total Bilirubin 0.7 mg/dL (0.2-1.0) 0.5 mg/dL (0.2-1.0) Aspartate Amino Transf (AST/SGOT) 34 U/L (15-37) 29 U/L (15-37) Alanine Aminotransferase (ALT/SGPT) 16 U/L (16-63) 12 U/L (16-63) Alkaline Phosphatase 120 U/L (46-116) 108 U/L (46-116) Troponin I Quantitative 0.153 ng/mL (0.000-0.055) 0.319 ng/mL (0.000-0.055) LY-Ist-M-Type Natriuretic Peptide 792 pg/mL (0-449) Total Protein 7.6 g/dL (6.4-8.2) 7.1 g/dL (6.4-8.2) Albumin 2.7 g/dL (3.4-5.0) 2.5 g/dL (3.4-5.0) Albumin/Globulin Ratio 0.6 (1.0-1.7) 0.5 (1.0-1.7) O2 Saturation 83 % (92-99) Arterial Blood pH 7.34 (7.35-7.45) Arterial Blood pCO2 at Patient Temp 40 mmHg (35-46) Arterial Blood pO2 at Patient Temp 51 mmHg (65-108) Arterial Blood HCO3 21 mmol/L (21-28) Arterial Blood Base Excess -5 mmol/L (-3-3) FiO2 100 Test 05/07/20 02:45 05/07/20 09:08 05/07/20 11:30 05/07/20 19:14 Troponin I Quantitative 0.576 ng/mL (0.000-0.055) Procalcitonin < 0.10 ng/mL (0.00-0.10) Glucose (Fingerstick) 361 mg/dL (70-99) 521 mg/dL (70-99) O2 Saturation 99 % (92-99) Arterial Blood pH 7.34 (7.35-7.45) Arterial Blood pCO2 at Patient Temp 36 mmHg (35-46) Arterial Blood pO2 at Patient Temp 197 mmHg (65-108) Arterial Blood HCO3 19 mmol/L (21-28) Arterial Blood Base Excess -6 mmol/L (-3-3) FiO2 100 nrm Test 05/07/20 21:26 05/08/20 04:40 05/08/20 05:40 05/08/20 12:06 Glucose (Fingerstick) 517 mg/dL (70-99) 472 mg/dL (70-99) Sodium Level 137 mmol/L (136-145) Potassium Level 3.9 mmol/L (3.5-5.1) Chloride Level 99 mmol/L (98-107) Carbon Dioxide Level 21 mmol/L (21-32) Anion Gap 17 (6-14) Blood Urea Nitrogen 60 mg/dL (8-26) Creatinine 2.3 mg/dL (0.7-1.3) Estimated GFR (Cockcroft-Gault) 27.3 BUN/Creatinine Ratio 26 (6-20) Glucose Level 462 mg/dL (70-99) Calcium Level 8.2 mg/dL (8.5-10.1) Total Bilirubin 0.4 mg/dL (0.2-1.0) Aspartate Amino Transf (AST/SGOT) 22 U/L (15-37) Alanine Aminotransferase (ALT/SGPT) 10 U/L (16-63) Alkaline Phosphatase 97 U/L (46-116) Total Protein 6.9 g/dL (6.4-8.2) Albumin 2.1 g/dL (3.4-5.0) Albumin/Globulin Ratio 0.4 (1.0-1.7) White Blood Count 6.8 x10^3/uL (4.0-11.0) Red Blood Count 3.96 x10^6/uL (4.30-5.70) Hemoglobin 11.2 g/dL (13.0-17.5) Hematocrit 33.6 % (39.0-53.0) Mean Corpuscular Volume 85 fL (79-100) Mean Corpuscular Hemoglobin 28 pg (25-35) Mean Corpuscular Hemoglobin Concent 33 g/dL (31-37) Red Cell Distribution Width 15.3 % (11.5-14.5) Platelet Count 168 x10^3/uL (140-400) Neutrophils (%) (Auto) 79 % (31-73) Lymphocytes (%) (Auto) 13 % (24-48) Monocytes (%) (Auto) 8 % (0-9) Eosinophils (%) (Auto) 0 % (0-3) Basophils (%) (Auto) 0 % (0-3) Neutrophils # (Auto) 5.4 x10^3/uL (1.8-7.7) Lymphocytes # (Auto) 0.9 x10^3/uL (1.0-4.8) Monocytes # (Auto) 0.5 x10^3/uL (0.0-1.1) Eosinophils # (Auto) 0.0 x10^3/uL (0.0-0.7) Basophils # (Auto) 0.0 x10^3/uL (0.0-0.2) Laboratory Tests Test 05/07/20 19:14 7/6/20 21:26 05/08/20 04:40 05/08/20 05:40 Glucose (Fingerstick) 521 mg/dL (70-99) 517 mg/dL (70-99) Sodium Level 137 mmol/L (136-145) Potassium Level 3.9 mmol/L (3.5-5.1) Chloride Level 99 mmol/L (98-107) Carbon Dioxide Level 21 mmol/L (21-32) Anion Gap 17 (6-14) Blood Urea Nitrogen 60 mg/dL (8-26) Creatinine 2.3 mg/dL (0.7-1.3) Estimated GFR (Cockcroft-Gault) 27.3 BUN/Creatinine Ratio 26 (6-20) Glucose Level 462 mg/dL (70-99) Calcium Level 8.2 mg/dL (8.5-10.1) Total Bilirubin 0.4 mg/dL (0.2-1.0) Aspartate Amino Transf (AST/SGOT) 22 U/L (15-37) Alanine Aminotransferase (ALT/SGPT) 10 U/L (16-63) Alkaline Phosphatase 97 U/L (46-116) Total Protein 6.9 g/dL (6.4-8.2) Albumin 2.1 g/dL (3.4-5.0) Albumin/Globulin Ratio 0.4 (1.0-1.7) White Blood Count 6.8 x10^3/uL (4.0-11.0) Red Blood Count 3.96 x10^6/uL (4.30-5.70) Hemoglobin 11.2 g/dL (13.0-17.5) Hematocrit 33.6 % (39.0-53.0) Mean Corpuscular Volume 85 fL (79-100) Mean Corpuscular Hemoglobin 28 pg (25-35) Mean Corpuscular Hemoglobin Concent 33 g/dL (31-37) Red Cell Distribution Width 15.3 % (11.5-14.5) Platelet Count 168 x10^3/uL (140-400) Neutrophils (%) (Auto) 79 % (31-73) Lymphocytes (%) (Auto) 13 % (24-48) Monocytes (%) (Auto) 8 % (0-9) Eosinophils (%) (Auto) 0 % (0-3) Basophils (%) (Auto) 0 % (0-3) Neutrophils # (Auto) 5.4 x10^3/uL (1.8-7.7) Lymphocytes # (Auto) 0.9 x10^3/uL (1.0-4.8) Monocytes # (Auto) 0.5 x10^3/uL (0.0-1.1) Eosinophils # (Auto) 0.0 x10^3/uL (0.0-0.7) Basophils # (Auto) 0.0 x10^3/uL (0.0-0.2) Test 05/08/20 12:06 Glucose (Fingerstick) 472 mg/dL (70-99) Assessment/Plan Assessment/Plan Chest pain rule out coronary diseas Plan Serial enzymes serial EKGs Rule out recurrent COVID-19 Consult cardiology Home meds DVT prophylaxis Full code Prognosis guarded Justicifation of Admission Dx: Justifications for Admission: Justification of Admission Dx: Yes Sepsis: Infection [place]: Acute NSTEMI JIE STEVENS III DO May 08, 2020 17:04
--- NOTE | 2020-05-08 17:29 | PDOC ---
GENERAL General: vss and afebrile. blood pressures on low side. chest with some diminished breath sounds but clear, heart regular, abdomen benign. responds to voice but not verbal. creatinine increased to 2.3 today. sugars continue to run high and new insulin orders put in. not receiving food due to mental status and will start ppn tomorrow. new infiltrate LLL today and antibiotics adjusted. still receiving vapoform O2 at 30L as I saw this am. continue supportive care. daughter made DNR and I agree. VITAL SIGNS/I&O Vital Signs/I&O: Vital Signs Date Time Temp Pulse Resp B/P (MAP) Pulse Ox O2 Delivery O2 Flow Rate FiO2 05/08/20 13:00 71 22 102/54 (70) 99 Simple Mask 8.0 05/08/20 12:00 98.3 98.3 I & O 05/07/20 05/07/20 05/08/20 15:00 23:00 07:00 Intake Total 400 ml 50 ml Output Total 850 ml 350 ml Balance -450 ml -300 ml ALLERGIES Allergies: Allergies Coded Allergies Type Severity Reaction Last Updated Verified Influenza Virus Vaccines Allergy Intermediate 05/09/17 Yes I S O L A T I O N *CONTACT* Allergy Unknown 05/12/17 Yes MEDS Medications: Current Medications Medications (Trade) Dose Ordered Sig/Chay Route PRN Reason Start Time Stop Time Status Last Admin Dose Admin Aspirin (Aspirin Rectal Supp) 300 mg DAILY [place] 05/08/20 09:00 05/08/20 08:23 Meropenem 500 mg/ Sodium Chloride 50 ml @ 100 mls/hr Q6HRS IV 05/07/20 18:00 05/08/20 09:41 DC 05/08/20 05:21 Vitamin A/Vitamin D (Vitamin A & D Ointment) 1 kimberly BID TP 05/07/20 21:00 05/08/20 08:23 Insulin Glargine (Lantus Syringe) 10 unit QHS SQ 05/07/20 21:00 05/07/20 20:19 Insulin Human Lispro (HumaLOG) 10 units 1X ONCE SQ 05/07/20 20:00 05/07/20 20:01 DC 05/07/20 20:20 Sodium Chloride 1,000 ml @ 75 mls/hr [id number] IV 05/08/20 11:45 05/08/20 12:34 Insulin Human Lispro (HumaLOG) 10 units Q6HRS PRN SQ glucose>300 05/08/20 12:30 05/08/20 12:32 LAB Lab: Laboratory Tests Test 05/07/20 19:14 05/07/20 21:26 05/08/20 04:40 05/08/20 05:40 Glucose (Fingerstick) 521 mg/dL (70-99) *H 517 mg/dL (70-99) *H Sodium Level 137 mmol/L (136-145) Potassium Level 3.9 mmol/L (3.5-5.1) Chloride Level 99 mmol/L (98-107) Carbon Dioxide Level 21 mmol/L (21-32) Anion Gap 17 (6-14) H Blood Urea Nitrogen 60 mg/dL (8-26) H Creatinine 2.3 mg/dL (0.7-1.3) H Estimated GFR (Cockcroft-Gault) 27.3 BUN/Creatinine Ratio 26 (6-20) H Glucose Level 462 mg/dL (70-99) H Calcium Level 8.2 mg/dL (8.5-10.1) L Total Bilirubin 0.4 mg/dL (0.2-1.0) Aspartate Amino Transferase (AST) 22 U/L (15-37) Alanine Aminotransferase (ALT) 10 U/L (16-63) L Alkaline Phosphatase 97 U/L (46-116) Total Protein 6.9 g/dL (6.4-8.2) Albumin 2.1 g/dL (3.4-5.0) L Albumin/Globulin Ratio 0.4 (1.0-1.7) L White Blood Count 6.8 x10^3/uL (4.0-11.0) Red Blood Count 3.96 x10^6/uL (4.30-5.70) L Hemoglobin 11.2 g/dL (13.0-17.5) L Hematocrit 33.6 % (39.0-53.0) L Mean Corpuscular Volume 85 fL (79-100) Mean Corpuscular Hemoglobin 28 pg (25-35) Mean Corpuscular Hemoglobin Concent 33 g/dL (31-37) Red Cell Distribution Width 15.3 % (11.5-14.5) H Platelet Count 168 x10^3/uL (140-400) Neutrophils (%) (Auto) 79 % (31-73) H Lymphocytes (%) (Auto) 13 % (24-48) L Monocytes (%) (Auto) 8 % (0-9) Eosinophils (%) (Auto) 0 % (0-3) Basophils (%) (Auto) 0 % (0-3) Neutrophils # (Auto) 5.4 x10^3/uL (1.8-7.7) Lymphocytes # (Auto) 0.9 x10^3/uL (1.0-4.8) L Monocytes # (Auto) 0.5 x10^3/uL (0.0-1.1) Eosinophils # (Auto) 0.0 x10^3/uL (0.0-0.7) Basophils # (Auto) 0.0 x10^3/uL (0.0-0.2) Test 05/08/20 12:06 Glucose (Fingerstick) 472 mg/dL (70-99) H Laboratory Tests 05/08/20 05:40 Laboratory Tests 05/08/20 04:40 Justicifation of Admission Dx: Justifications for Admission: Justification of Admission Dx: Yes Sepsis: Infection [place]: Acute NSTEMI Nutrition Consultation Dietary Evaluation: Recommendations by RD: Dietary education by RD, Increase Calorie Intake, Protein supplementation Comments: REC advance diet within 24-48 hrs pending respiratory status, goal diet ADA/cardiac w/glucerna (vanilla) TID or per pt preference. Also recommend Vit C and MVI for wound healing If extended NPO (>day 4), would recommend consideration of short-term non-oral nutrition support (PPN or dobhoff for TFs) Expected Outcomes/Goals: Diet advancement Interpretation of weight loss: >5% in 1 month Malnutrition Findings: Food and Nutrition Intake (Sev: <50% est energy req 5days Weight Status: Appropriate LUISITO RUSSELL MD May 08, 2020 17:29
[2020-05-08] MEDS: LACTOBACILLUS RHAMNOSUS GG 1 CAPSULE. PO SCH (21:36)
[2020-05-08] MEDS: INSULIN GLARGINE SYRINGE. SQ SCH (21:44)
[2020-05-09] VITALS (23 sets, daily range): BP systolic 99–168; BP diastolic 47–92
--- NOTE | 2020-05-09 04:39 | NUR ---
Called Dr Prater answering service regarding COVID + result & Temp now 101.5F. New orders given.
[2020-05-09] MEDS ORDERED: ACETAMINOPHEN 650 MG SUPP.RECT. PR ONE (05:00)
[2020-05-09] MEDS: MEROPENEM 500 MG in IV NORMAL SALINE 50ML 50 ML IV SCH ×2 (05:41→21:29)
[2020-05-09] MEDS: INSULIN LISPRO 300 UNITS/3 ML VIAL. SQ SCH ×4 (06:00→16:56)
--- NOTE | 2020-05-09 07:23 | PDOC ---
Infectious Disease Note Subjective Subjective On facemask Alert but not answering questions Vital Sign Vital Signs Vital Signs Date Time Temp Pulse Resp B/P (MAP) Pulse Ox O2 Delivery O2 Flow Rate FiO2 05/09/20 06:00 101.3 81 24 148/73 (98) 100 NonRebreather Mask 6.0 101.3 Physical Exam PHYSICAL EXAM CONSTITUTIONAL: He is alert. He is no acute distress. Appears comfortable but a little tired HEENT: Oral cavity, pharynx has poor dentition, dry. He has normal conjunctivae. NECK: Supple, without JVD. LUNGS: mild rhonchi this am HEART: S1, S2. ABDOMEN: Soft, nontender, nondistended. No rebound or guarding. GENITOURINARY: Marley is in place. 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 Left lower extremity, LLE without edema.Foot callous with iodine - NT NEUROLOGICAL: He is alert, moved ext Labs Lab Laboratory Tests Test 05/08/20 12:06 05/09/20 00:02 05/09/20 05:20 05/09/20 06:10 Glucose (Fingerstick) 472 mg/dL (70-99) 244 mg/dL (70-99) 259 mg/dL (70-99) Creatine Kinase 79 U/L (39-308) Micro CXR IMPRESSION: Interval left basilar atelectasis or consolidation. Mild interval prominence of the pulmonary interstitium in the setting of persistent low lung volumes. Microbiology 05/06/20 Blood Culture - Preliminary, Resulted NO GROWTH AFTER 1 DAY Objective Assessment COVID + Fever- ? COVID ? UTI vs med CKD with AMANUEL - slight worse today Acute hypoxic resp failure on 6 Facemask ? UTI - Morganella and yeast CALB - Sens pending Elevated Troponin - ? type 2 NSTEMI Recent MRSA/Pseudomonas DM - not controlled H/o C-diff Plan Plan of Care D/c Daptomycin and Linezolid (for lung) with neg cults started / Dose Fluconazole - no H/o arrhythmias for a few days Repeat CXR this am Cont Meropenem 7/6 Defer Steroids and Remdesivir/plasma to Pulm Labs this am to add CRP/LDH CMP and CBC in am F/u labs and cults D/w nursing TOYA MAI MD May 09, 2020 07:23
--- NOTE | 2020-05-09 07:35 | PDOC ---
GENERAL General: vss with tmax 101.5. blood pressures much better and sugars some improved. resp onds to voice but non communicative. appears comfortable. exam stable. covid +. am labs pending. will start ppn today and if steroids added by ID for covid may need insulin drip. VITAL SIGNS/I&O Vital Signs/I&O: Vital Signs Date Time Temp Pulse Resp B/P (MAP) Pulse Ox O2 Delivery O2 Flow Rate FiO2 05/09/20 06:00 101.3 81 24 148/73 (98) 100 NonRebreather Mask 6.0 101.3 I & O 05/08/20 05/08/20 05/09/20 15:00 23:00 07:00 Intake Total 300 ml 800 ml 1075 ml Output Total 110 ml 290 ml 850 ml Balance 190 ml 510 ml 225 ml ALLERGIES Allergies: Allergies Coded Allergies Type Severity Reaction Last Updated Verified Influenza Virus Vaccines Allergy Intermediate 05/09/17 Yes I S O L A T I O N *CONTACT* Allergy Unknown 05/12/17 Yes MEDS Medications: Current Medications Medications (Trade) Dose Ordered Sig/Chay Route PRN Reason Start Time Stop Time Status Last Admin Dose Admin Aspirin (Aspirin Rectal Supp) 300 mg DAILY [place] 05/08/20 09:00 05/08/20 08:23 Meropenem 500 mg/ Sodium Chloride 50 ml @ 100 mls/hr Q12HR IV 05/08/20 21:00 05/09/20 05:41 Lactobacillus Rhamnosus (Culturelle) 1 cap BID PO 05/08/20 21:00 05/08/20 21:36 Sodium Chloride 1,000 ml @ 75 mls/hr [id number] IV 05/08/20 11:45 05/08/20 21:51 Insulin Human Lispro (HumaLOG) 10 units Q6HRS PRN SQ glucose>300 05/08/20 12:30 05/08/20 17:38 Acetaminophen (Tylenol Supp) 650 mg 1X ONCE [place] 05/09/20 05:00 05/09/20 05:01 DC 05/09/20 06:15 LAB Lab: Laboratory Tests Test 05/08/20 12:06 05/09/20 00:02 05/09/20 05:20 05/09/20 06:10 Glucose (Fingerstick) 472 mg/dL (70-99) H 244 mg/dL (70-99) H 259 mg/dL (70-99) H Creatine Kinase 79 U/L (39-308) Justicifation of Admission Dx: Justifications for Admission: Justification of Admission Dx: Yes Sepsis: Infection [place]: Acute NSTEMI Nutrition Consultation Dietary Evaluation: Recommendations by RD: Dietary education by RD, Increase Calorie Intake, Protein supplementation Comments: REC advance diet within 24-48 hrs pending respiratory status, goal diet ADA/cardiac w/glucerna (vanilla) TID or per pt preference. Also recommend Vit C and MVI for wound healing If extended NPO (>day 4), would recommend consideration of short-term non-oral nutrition support (PPN or dobhoff for TFs) Expected Outcomes/Goals: Diet advancement Interpretation of weight loss: >5% in 1 month Malnutrition Findings: Food and Nutrition Intake (Sev: <50% est energy req 5days Weight Status: Appropriate LUISITO RUSSELL MD May 09, 2020 07:35
[2020-05-09 07:53] LABS: BASO % 0 % (0-3); EOS % 1 % (0-3); HEMATOCRIT 34.4 % (39.0-53.0); HEMOGLOBIN 11.4 g/dL (13.0-17.5); LYMPH # 0.7 x10^3/uL (1.0-4.8); LYMPH % 11 % (24-48); MEAN CORPUSCULAR HEMOGLOBIN 28 pg (25-35); MEAN CORPUSCULAR HGB CONC 33 g/dL (31-37); MEAN CORPUSCULAR VOLUME 84 fL (79-100); MONO # 0.3 x10^3/uL (0.0-1.1); MONO % 5 % (0-9); NEUT # 5.3 x10^3/uL (1.8-7.7); NEUT % 83 % (31-73); PLATELET COUNT 176 x10^3/uL (140-400); RED BLOOD COUNT 4.07 x10^6/uL (4.30-5.70); RED CELL DISTRIBUTION WIDTH 15.2 % (11.5-14.5); WHITE BLOOD COUNT 6.3 x10^3/uL (4.0-11.0)
[2020-05-09 07:55] LABS: CALCIUM 8.3 mg/dL (8.5-10.1); CREATININE 1.7 mg/dL (0.7-1.3); GFR 38.7; POTASSIUM 3.6 mmol/L (3.5-5.1)
--- NOTE | 2020-05-09 08:37 | PDOC ---
PULMONARY PROGRESS NOTES Subjective Patient not responsive to verbal command Vitals Vital Signs Date Time Temp Pulse Resp B/P (MAP) Pulse Ox O2 Delivery O2 Flow Rate FiO2 05/09/20 07:00 101.1 76 20 116/92 (100) 95 NonRebreather Mask 6.0 101.1 General: Alert Lungs: Crackles Cardiovascular: S1, S2 Abdomen: Soft Extremities: Other (Edema) Skin: Warm Labs Laboratory Tests Test 05/07/20 09:08 05/07/20 11:30 05/07/20 12:20 05/07/20 19:14 Glucose (Fingerstick) 361 mg/dL (70-99) 521 mg/dL (70-99) O2 Saturation 99 % (92-99) Arterial Blood pH 7.34 (7.35-7.45) Arterial Blood pCO2 at Patient Temp 36 mmHg (35-46) Arterial Blood pO2 at Patient Temp 197 mmHg (65-108) Arterial Blood HCO3 19 mmol/L (21-28) Arterial Blood Base Excess -6 mmol/L (-3-3) FiO2 100 nrm Coronavirus (PCR) Detected (Not Detected) Test 05/07/20 21:26 05/08/20 04:40 05/08/20 05:40 05/08/20 12:06 Glucose (Fingerstick) 517 mg/dL (70-99) 472 mg/dL (70-99) Sodium Level 137 mmol/L (136-145) Potassium Level 3.9 mmol/L (3.5-5.1) Chloride Level 99 mmol/L (98-107) Carbon Dioxide Level 21 mmol/L (21-32) Anion Gap 17 (6-14) Blood Urea Nitrogen 60 mg/dL (8-26) Creatinine 2.3 mg/dL (0.7-1.3) Estimated GFR (Cockcroft-Gault) 27.3 BUN/Creatinine Ratio 26 (6-20) Glucose Level 462 mg/dL (70-99) Calcium Level 8.2 mg/dL (8.5-10.1) Total Bilirubin 0.4 mg/dL (0.2-1.0) Aspartate Amino Transf (AST/SGOT) 22 U/L (15-37) Alanine Aminotransferase (ALT/SGPT) 10 U/L (16-63) Alkaline Phosphatase 97 U/L (46-116) Total Protein 6.9 g/dL (6.4-8.2) Albumin 2.1 g/dL (3.4-5.0) Albumin/Globulin Ratio 0.4 (1.0-1.7) White Blood Count 6.8 x10^3/uL (4.0-11.0) Red Blood Count 3.96 x10^6/uL (4.30-5.70) Hemoglobin 11.2 g/dL (13.0-17.5) Hematocrit 33.6 % (39.0-53.0) Mean Corpuscular Volume 85 fL (79-100) Mean Corpuscular Hemoglobin 28 pg (25-35) Mean Corpuscular Hemoglobin Concent 33 g/dL (31-37) Red Cell Distribution Width 15.3 % (11.5-14.5) Platelet Count 168 x10^3/uL (140-400) Neutrophils (%) (Auto) 79 % (31-73) Lymphocytes (%) (Auto) 13 % (24-48) Monocytes (%) (Auto) 8 % (0-9) Eosinophils (%) (Auto) 0 % (0-3) Basophils (%) (Auto) 0 % (0-3) Neutrophils # (Auto) 5.4 x10^3/uL (1.8-7.7) Lymphocytes # (Auto) 0.9 x10^3/uL (1.0-4.8) Monocytes # (Auto) 0.5 x10^3/uL (0.0-1.1) Eosinophils # (Auto) 0.0 x10^3/uL (0.0-0.7) Basophils # (Auto) 0.0 x10^3/uL (0.0-0.2) Test 05/09/20 00:02 05/09/20 05:20 05/09/20 06:10 Glucose (Fingerstick) 244 mg/dL (70-99) 259 mg/dL (70-99) White Blood Count 6.3 x10^3/uL (4.0-11.0) Red Blood Count 4.07 x10^6/uL (4.30-5.70) Hemoglobin 11.4 g/dL (13.0-17.5) Hematocrit 34.4 % (39.0-53.0) Mean Corpuscular Volume 84 fL (79-100) Mean Corpuscular Hemoglobin 28 pg (25-35) Mean Corpuscular Hemoglobin Concent 33 g/dL (31-37) Red Cell Distribution Width 15.2 % (11.5-14.5) Platelet Count 176 x10^3/uL (140-400) Neutrophils (%) (Auto) 83 % (31-73) Lymphocytes (%) (Auto) 11 % (24-48) Monocytes (%) (Auto) 5 % (0-9) Eosinophils (%) (Auto) 1 % (0-3) Basophils (%) (Auto) 0 % (0-3) Neutrophils # (Auto) 5.3 x10^3/uL (1.8-7.7) Lymphocytes # (Auto) 0.7 x10^3/uL (1.0-4.8) Monocytes # (Auto) 0.3 x10^3/uL (0.0-1.1) Eosinophils # (Auto) 0.0 x10^3/uL (0.0-0.7) Basophils # (Auto) 0.0 x10^3/uL (0.0-0.2) Sodium Level 144 mmol/L (136-145) Potassium Level 3.6 mmol/L (3.5-5.1) Chloride Level 106 mmol/L (98-107) Carbon Dioxide Level 28 mmol/L (21-32) Anion Gap 10 (6-14) Blood Urea Nitrogen 47 mg/dL (8-26) Creatinine 1.7 mg/dL (0.7-1.3) Estimated GFR (Cockcroft-Gault) 38.7 Glucose Level 281 mg/dL (70-99) Calcium Level 8.3 mg/dL (8.5-10.1) Creatine Kinase 79 U/L (39-308) Laboratory Tests Test 05/08/20 12:06 05/09/20 00:02 05/09/20 05:20 05/09/20 06:10 Glucose (Fingerstick) 472 mg/dL (70-99) 244 mg/dL (70-99) 259 mg/dL (70-99) White Blood Count 6.3 x10^3/uL (4.0-11.0) Red Blood Count 4.07 x10^6/uL (4.30-5.70) Hemoglobin 11.4 g/dL (13.0-17.5) Hematocrit 34.4 % (39.0-53.0) Mean Corpuscular Volume 84 fL (79-100) Mean Corpuscular Hemoglobin 28 pg (25-35) Mean Corpuscular Hemoglobin Concent 33 g/dL (31-37) Red Cell Distribution Width 15.2 % (11.5-14.5) Platelet Count 176 x10^3/uL (140-400) Neutrophils (%) (Auto) 83 % (31-73) Lymphocytes (%) (Auto) 11 % (24-48) Monocytes (%) (Auto) 5 % (0-9) Eosinophils (%) (Auto) 1 % (0-3) Basophils (%) (Auto) 0 % (0-3) Neutrophils # (Auto) 5.3 x10^3/uL (1.8-7.7) Lymphocytes # (Auto) 0.7 x10^3/uL (1.0-4.8) Monocytes # (Auto) 0.3 x10^3/uL (0.0-1.1) Eosinophils # (Auto) 0.0 x10^3/uL (0.0-0.7) Basophils # (Auto) 0.0 x10^3/uL (0.0-0.2) Sodium Level 144 mmol/L (136-145) Potassium Level 3.6 mmol/L (3.5-5.1) Chloride Level 106 mmol/L (98-107) Carbon Dioxide Level 28 mmol/L (21-32) Anion Gap 10 (6-14) Blood Urea Nitrogen 47 mg/dL (8-26) Creatinine 1.7 mg/dL (0.7-1.3) Estimated GFR (Cockcroft-Gault) 38.7 Glucose Level 281 mg/dL (70-99) Calcium Level 8.3 mg/dL (8.5-10.1) Creatine Kinase 79 U/L (39-308) Medications Active Scripts Medications Dose Route/Sig Max Daily Dose Days Date Category Zyvox (Linezolid) 600 Mg Tablet 600 Mg PO BID 04/15/20 Rx Cipro (Ciprofloxacin Hcl) 250 Mg Tablet 500 Mg PO BID 04/15/20 Rx Ondansetron Odt (Ondansetron) 4 Mg Tab.rapdis 1 Tab PO PRN Q6-8HRS 03/20/20 Rx Lantus (Insulin Glargine,Hum.rec.anlog) 100 Unit/1 Ml Vial 10 Unit SQ QHS 30 01/02/20 Rx Isosorbide Mononitrate Er (Isosorbide Mononitrate) 30 Mg Tab.er.24h 30 Mg PO DAILY 10/18/19 Reported Carvedilol 25 Mg Tablet 12.5 Mg PO BIDWMEALS 09/05/19 Reported Proair Hfa Inhaler (Albuterol Sulfate) 8.5 Gm Hfa.aer.ad 2 Puff IH PRN Q4-6HRS PRN 21 09/05/19 Reported Aspirin 81 Mg Tab.chew 1 Tab PO DAILY 09/05/19 Reported Vitamin D2 (Ergocalciferol (Vitamin D2)) 50,000 Unit Capsule 1 Cap PO WEEKLY 28 09/05/19 Reported Lisinopril 40 Mg Tablet 20 Mg PO DAILY PRN 09/05/19 Reported Gabapentin 600 Mg Tablet 300 Mg PO QHS 09/05/19 Reported Emperatriz-Bid Caplet (Acidoph/L.bulg/Bif.b/S.thermop) 1 Each Tablet 1 Each PO TIDAC 03/23/17 Reported Atorvastatin Calcium 10 Mg Tablet 10 Mg PO QHS 09/16/16 Rx Midodrine Hcl 2.5 Mg Tablet 2.5 Mg PO [id number] 09/16/16 Rx Duloxetine Hcl 60 Mg Capsule.dr 60 Mg PO DAILY 09/12/16 Reported Impression . IMPRESSION: 1. Acute hypoxemic respiratory failure. 2. Elevated troponin, suspect, and non-ST segment elevation myocardial infarction. 3. Acute on chronic systolic heart failure. 4. Possible aspiration pneumonia. 5. Acute on chronic kidney disease. 6. Hypertension. 7. Diabetes. 8. Toxic metabolic encephalopathy. 9. Possible sepsis. 10. History of SARS-CoV-2 positive. 11. 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 12. History of Clostridium difficile. 13. SARS COVID positive Plan . Add steroids Oxygen supplementation Empiric antibiotic daptomycin linezolid and meropenem Follow cardiology input Monitor blood sugars Total cumulative critical care time of 30 minutes, reviewing data, labs, data, and formulating a plan FAMILIA DUARTE MD May 09, 2020 08:37
[2020-05-09] MEDS: AMINO AC 3%/ELECTROLYTE/GLYCER 1,000 ML IV SCH ×2 (08:40→22:02)
--- NOTE | 2020-05-09 08:43 | RAD ---
CHEST AP ONLY History: Reason: COVID, SOA / Spl. Instructions: / History: Comparison: May 07, 2020 Findings: Linear density along the right lateral and upper lung. Lung markings are seen peripheral to the linear density. Left basilar consolidation, decreased compared to prior. Small layering left pleural effusion, decreased. Unchanged heart size. Impression: 1. Linear density along the right lateral upper lung, may represent artifact related to skin fold or overlying structures. Recommend repeat PA and lateral radiograph to evaluate for pneumothorax. 2. Left basilar consolidation, decreased compared to prior. 3. Decreased small left pleural effusion. Electronically signed by: Omari Ramirez DO (05/09/2020 8:40 AM) [id number]
[2020-05-09 08:50] LABS: C-REACTIVE PROTEIN 272.4 mg/L (0-3.3)
[2020-05-09] MEDS: ASPIRIN RECTAL 300 MG SUPP. PR SCH (09:00)
[2020-05-09] MEDS: LACTOBACILLUS RHAMNOSUS GG 1 CAPSULE. PO SCH ×2 (09:00→21:00)
[2020-05-09] MEDS: FLUCONAZOLE 100MG/50ML PREMIX 50 ML IV SCH (09:34)
[2020-05-09] MEDS: VITS A & D/LANOLIN TOPICAL OINTMENT 42GM TUBE. TP SCH ×2 (11:26→21:00)
--- NOTE | 2020-05-09 11:56 | PDOC ---
JOBY JAMIL DOLL EYE SETTER 05/09/20 1156: CARDIO Progress Notes Date and Time Date of Service 05/09/20 Time of Evaluation 1140 Subjective Subjective: Other (simple mask, nonverbal ) Vitals Vitals Vital Signs Date Time Temp Pulse Resp B/P (MAP) Pulse Ox O2 Delivery O2 Flow Rate FiO2 05/09/20 09:01 100 Simple Mask 6.0 05/09/20 09:00 76 20 99/47 (64) 05/09/20 08:00 101.0 101.0 Weight Weight [ ] Input and Output Intake and Output Intake and Output 05/09/20 07:00 Intake Total 2175 ml Output Total 1250 ml Balance 925 ml IV Total 1100 ml Other 1075 ml Output Urine Total 1250 ml Laboratory Labs Laboratory Tests Test 05/08/20 12:06 05/09/20 00:02 05/09/20 05:20 05/09/20 06:10 Glucose (Fingerstick) 472 mg/dL (70-99) 244 mg/dL (70-99) 259 mg/dL (70-99) White Blood Count 6.3 x10^3/uL (4.0-11.0) Red Blood Count 4.07 x10^6/uL (4.30-5.70) Hemoglobin 11.4 g/dL (13.0-17.5) Hematocrit 34.4 % (39.0-53.0) Mean Corpuscular Volume 84 fL (79-100) Mean Corpuscular Hemoglobin 28 pg (25-35) Mean Corpuscular Hemoglobin Concent 33 g/dL (31-37) Red Cell Distribution Width 15.2 % (11.5-14.5) Platelet Count 176 x10^3/uL (140-400) Neutrophils (%) (Auto) 83 % (31-73) Lymphocytes (%) (Auto) 11 % (24-48) Monocytes (%) (Auto) 5 % (0-9) Eosinophils (%) (Auto) 1 % (0-3) Basophils (%) (Auto) 0 % (0-3) Neutrophils # (Auto) 5.3 x10^3/uL (1.8-7.7) Lymphocytes # (Auto) 0.7 x10^3/uL (1.0-4.8) Monocytes # (Auto) 0.3 x10^3/uL (0.0-1.1) Eosinophils # (Auto) 0.0 x10^3/uL (0.0-0.7) Basophils # (Auto) 0.0 x10^3/uL (0.0-0.2) Sodium Level 144 mmol/L (136-145) Potassium Level 3.6 mmol/L (3.5-5.1) Chloride Level 106 mmol/L (98-107) Carbon Dioxide Level 28 mmol/L (21-32) Anion Gap 10 (6-14) Blood Urea Nitrogen 47 mg/dL (8-26) Creatinine 1.7 mg/dL (0.7-1.3) Estimated GFR (Cockcroft-Gault) 38.7 Glucose Level 281 mg/dL (70-99) Calcium Level 8.3 mg/dL (8.5-10.1) Lactate Dehydrogenase 179 U/L (85-227) Creatine Kinase 79 U/L (39-308) C-Reactive Protein, Quantitative 272.4 mg/L (0-3.3) Test 05/09/20 11:28 Glucose (Fingerstick) 284 mg/dL (70-99) Microbiology Micro Microbiology 05/06/20 Urine Culture - Final, Complete 05/06/20 Antimicrobic Susceptibility - Final, Complete 05/06/20 Blood Culture - Preliminary, Resulted NO GROWTH AFTER 2 DAYS Physical Exam HEENT: Neck Supple W Full Motion Chest: Symmetric LUNGS: Other (diminished ) Heart: S1S2, RRR Abdomen: Soft N/T Neurology: alert, non-verbal Assessment Assessment 1. Acute respiratory failure secondary to COVID PNA. Fevers 2. Acute on chronic systolic CHF; Echo 12/22 with preserved LV systolic function 3. NSTEMI; highest trop 0.5. Most probably type II, demand ischemia with mu ltiple culprits noted. LVEF 50-55% 4. AMANUEL on CKD; improved with IVFs 5. Hypertension; controlled 6. Metabolic encephalopathy; non-verbal 7. CAD; details unknown 8. Diabetes, II; uncontrolled. as per IM 9. PAD s/p right BKA 10. UTI Recommendations ASA Antibiotics, steroids Hydralazine PRN Ongoing support Justicifation of Admission Dx: Justifications for Admission: Justification of Admission Dx: Yes Sepsis: Infection MD: Acute NSTEMI GURWINDER OCONNELL MD 05/09/20 2255: CARDIO Progress Notes Attending Co-Sign The patient was seen and interviewed as well as examined at the bedside. The chart was reviewed. The case was discussed. Agree with the plan of care. JOBY JAMIL APRN May 09, 2020 11:56 GURWINDER OCONNELL MD May 09, 2020 22:55
--- NOTE | 2020-05-09 13:33 | NUR ---
SS following up with discharge planning. SS reviewed pt chart and discussed with pt RN. Pt is COVID19 positive. Pt is skilled rehabilitation resident from [facility], ; fax [phone]. Pt on 6 liters non-rebreather mask and IV Meropenem and PPN. SS will continue to follow for discharge planning.
[2020-05-09] MEDS: methylPREDNISolone SOD SUCC PF 125 MG/2 ML VIAL. IV SCH ×2 (15:40→22:02)
--- NOTE | 2020-05-09 17:15 | NUR ---
Wound Care Photo assessment due to COVID 19 +. Pt has wounds to penis and buttocks, recommend A&D ointment BID and PRN. Left foot recommend betadine daily. WC will follow up on 05/14.
[2020-05-09] MEDS: INSULIN GLARGINE SYRINGE. SQ SCH (21:27)
[2020-05-10] VITALS (19 sets, daily range): BP systolic 106–178; BP diastolic 53–86
[2020-05-10 05:35] LABS: BASO % 0 % (0-3); EOS % 0 % (0-3); HEMATOCRIT 32.9 % (39.0-53.0); HEMOGLOBIN 10.8 g/dL (13.0-17.5); LYMPH # 0.5 x10^3/uL (1.0-4.8); LYMPH % 18 % (24-48); MEAN CORPUSCULAR HEMOGLOBIN 28 pg (25-35); MEAN CORPUSCULAR HGB CONC 33 g/dL (31-37); MEAN CORPUSCULAR VOLUME 84 fL (79-100); MONO # 0.1 x10^3/uL (0.0-1.1); MONO % 4 % (0-9); NEUT # 2.4 x10^3/uL (1.8-7.7); NEUT % 78 % (31-73); PLATELET COUNT 163 x10^3/uL (140-400); RED BLOOD COUNT 3.91 x10^6/uL (4.30-5.70); RED CELL DISTRIBUTION WIDTH 15.6 % (11.5-14.5)
[2020-05-10] MEDS: methylPREDNISolone SOD SUCC PF 125 MG/2 ML VIAL. IV SCH ×3 (05:53→22:12)
[2020-05-10 05:54] LABS: ALBUMIN 1.8 g/dL (3.4-5.0); ALBUMIN/GLOBULIN RATIO 0.3 (1.0-1.7); CALCIUM 8.8 mg/dL (8.5-10.1); CREATININE 1.1 mg/dL (0.7-1.3); GFR 63.9; POTASSIUM 3.8 mmol/L (3.5-5.1); TOTAL BILIRUBIN 0.3 mg/dL (0.2-1.0)
[2020-05-10] MEDS: INSULIN LISPRO 300 UNITS/3 ML VIAL. SQ SCH ×4 (06:23→17:59)
--- NOTE | 2020-05-10 07:29 | PDOC ---
Infectious Disease Note Subjective Subjective Off facemask sat 97 % Alert and states ok but that is all he is saying Vital Sign Vital Signs Vital Signs Date Time Temp Pulse Resp B/P (MAP) Pulse Ox O2 Delivery O2 Flow Rate FiO2 05/10/20 07:00 63 18 165/68 (100) 97 Room Air 05/10/20 06:00 98.3 15.0 98.3 Physical Exam PHYSICAL EXAM CONSTITUTIONAL: He is alert. He is no acute distress. Appears comfortable but a little tired HEENT: Oral cavity, pharynx has poor dentition, dry. He has normal conjunctivae. NECK: Supple, without JVD. LUNGS: mild rhonchi this am HEART: S1, S2. ABDOMEN: Soft, nontender, nondistended. No rebound or guarding. GENITOURINARY: Marley is in place. 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 Left lower extremity, LLE without edema.Foot callous with iodine - NT NEUROLOGICAL: He is alert, moved ext. Some verbal today Labs Lab Laboratory Tests Test 05/09/20 11:28 05/09/20 16:47 05/09/20 23:45 05/10/20 04:30 Glucose (Fingerstick) 284 mg/dL (70-99) 248 mg/dL (70-99) 316 mg/dL (70-99) White Blood Count 3.0 x10^3/uL (4.0-11.0) Red Blood Count 3.91 x10^6/uL (4.30-5.70) Hemoglobin 10.8 g/dL (13.0-17.5) Hematocrit 32.9 % (39.0-53.0) Mean Corpuscular Volume 84 fL (79-100) Mean Corpuscular Hemoglobin 28 pg (25-35) Mean Corpuscular Hemoglobin Concent 33 g/dL (31-37) Red Cell Distribution Width 15.6 % (11.5-14.5) Platelet Count 163 x10^3/uL (140-400) Neutrophils (%) (Auto) 78 % (31-73) Lymphocytes (%) (Auto) 18 % (24-48) Monocytes (%) (Auto) 4 % (0-9) Eosinophils (%) (Auto) 0 % (0-3) Basophils (%) (Auto) 0 % (0-3) Neutrophils # (Auto) 2.4 x10^3/uL (1.8-7.7) Lymphocytes # (Auto) 0.5 x10^3/uL (1.0-4.8) Monocytes # (Auto) 0.1 x10^3/uL (0.0-1.1) Eosinophils # (Auto) 0.0 x10^3/uL (0.0-0.7) Basophils # (Auto) 0.0 x10^3/uL (0.0-0.2) Sodium Level 145 mmol/L (136-145) Potassium Level 3.8 mmol/L (3.5-5.1) Chloride Level 109 mmol/L (98-107) Carbon Dioxide Level 26 mmol/L (21-32) Anion Gap 10 (6-14) Blood Urea Nitrogen 43 mg/dL (8-26) Creatinine 1.1 mg/dL (0.7-1.3) Estimated GFR (Cockcroft-Gault) 63.9 BUN/Creatinine Ratio 39 (6-20) Glucose Level 375 mg/dL (70-99) Calcium Level 8.8 mg/dL (8.5-10.1) Total Bilirubin 0.3 mg/dL (0.2-1.0) Aspartate Amino Transf (AST/SGOT) 19 U/L (15-37) Alanine Aminotransferase (ALT/SGPT) 7 U/L (16-63) Alkaline Phosphatase 92 U/L (46-116) Total Protein 7.0 g/dL (6.4-8.2) Albumin 1.8 g/dL (3.4-5.0) Albumin/Globulin Ratio 0.3 (1.0-1.7) Micro 05/09 CXR Impression: 1. Linear density along the right lateral upper lung, may represent artifact related to skin fold or overlying structures. Recommend repeat PA and lateral radiograph to evaluate for pneumothorax. 2. Left basilar consolidation, decreased compared to prior. 3. Decreased small left pleural effusion CXR IMPRESSION: Interval left basilar atelectasis or consolidation. Mild interval prominence of the pulmonary interstitium in the setting of persistent low lung volumes. 10,000 CFU/ML GRAM NEGATIVE RODS on 05/08/20 at 0948 FINAL ID= [MORGANELLA MORGANII] 50,000 CFU/ML YEAST on 05/08/20 at 0948 FINAL ID= [[facility]BICANS] Testing Performed by: [facility] [address] [place] [address] For Inquires, the Physician may contact the Microbiology department at [phone] MORGANELLA MORGANII [facility] ANTIMICROBIAL SUSCEPTIBILITY Final Comment NEG KAUR 56 MORGANELLA MORGANII ANTIBIOTIC RESULT INTERPRETATION AMPICILLIN/SULBACTAM >16/8 R AMIKACIN <=16 S AMPICILLIN >16 R AMOXICILLIN/K CLAVULANATE >16/8 R AZTREONAM >16 R CEFTRIAXONE 32 R CEFTAZIDIME >16 R CEFOTAXIME >32 R CEFOXITIN <=8 S CIPROFLOXACIN >2 R CEFEPIME 8 S CEFUROXIME >16 R CEFTAZIDIME/AVIBACTAM <=4 S ERTAPENEM <=0.5 S NITROFURANTOIN >64 R* GENTAMICIN <=2 S LEVOFLOXACIN >4 R MEROPENEM <=1 S PIPERACILLIN/TAZOBACTAM 32 I TRIMETHOPRIM/SULFAMETHOXAZOLE >2/38 R TETRACYCLINE >8 R Microbiology 05/06/20 Blood Culture - Preliminary, Resulted NO GROWTH AFTER 1 DAY Objective Assessment COVID + - 05/07 on steroids Leukopenia - ? viral Fever- ? COVID ? UTI vs med - improving CKD with AMANUEL - slight worse today Acute hypoxic resp failure on 6 Facemask ? UTI - Morganella and yeast CALB - Sens pending Elevated Troponin - ? type 2 NSTEMI Recent MRSA/Pseudomonas DM - not controlled H/o C-diff Plan Plan of Care D/c Daptomycin and Linezolid (for lung) with neg cults started 05/07 - 05/09 Dose Fluconazole - no H/o arrhythmias for a few days 05/09 Cont Meropenem 05/07 Defer Steroids and Remdesivir/plasma to Pulm CMP and CBC in am F/u labs and cults D/w nursing TOYA MAI MD May 10, 2020 07:29
[2020-05-10] MEDS: FLUCONAZOLE 100MG/50ML PREMIX 50 ML IV SCH (08:33)
--- NOTE | 2020-05-10 08:39 | PDOC ---
PULMONARY PROGRESS NOTES Subjective Patient awake alert confused Vitals Vital Signs Date Time Temp Pulse Resp B/P (MAP) Pulse Ox O2 Delivery O2 Flow Rate FiO2 05/10/20 08:00 98.0 62 14 153/73 (99) 99 Room Air 98.0 05/10/20 06:00 15.0 General: Alert Lungs: Crackles Cardiovascular: S1, S2 Abdomen: Soft Extremities: Other (Edema) Skin: Warm Labs Laboratory Tests Test 05/08/20 12:06 05/09/20 00:02 05/09/20 05:20 05/09/20 06:10 Glucose (Fingerstick) 472 mg/dL (70-99) 244 mg/dL (70-99) 259 mg/dL (70-99) White Blood Count 6.3 x10^3/uL (4.0-11.0) Red Blood Count 4.07 x10^6/uL (4.30-5.70) Hemoglobin 11.4 g/dL (13.0-17.5) Hematocrit 34.4 % (39.0-53.0) Mean Corpuscular Volume 84 fL (79-100) Mean Corpuscular Hemoglobin 28 pg (25-35) Mean Corpuscular Hemoglobin Concent 33 g/dL (31-37) Red Cell Distribution Width 15.2 % (11.5-14.5) Platelet Count 176 x10^3/uL (140-400) Neutrophils (%) (Auto) 83 % (31-73) Lymphocytes (%) (Auto) 11 % (24-48) Monocytes (%) (Auto) 5 % (0-9) Eosinophils (%) (Auto) 1 % (0-3) Basophils (%) (Auto) 0 % (0-3) Neutrophils # (Auto) 5.3 x10^3/uL (1.8-7.7) Lymphocytes # (Auto) 0.7 x10^3/uL (1.0-4.8) Monocytes # (Auto) 0.3 x10^3/uL (0.0-1.1) Eosinophils # (Auto) 0.0 x10^3/uL (0.0-0.7) Basophils # (Auto) 0.0 x10^3/uL (0.0-0.2) Sodium Level 144 mmol/L (136-145) Potassium Level 3.6 mmol/L (3.5-5.1) Chloride Level 106 mmol/L (98-107) Carbon Dioxide Level 28 mmol/L (21-32) Anion Gap 10 (6-14) Blood Urea Nitrogen 47 mg/dL (8-26) Creatinine 1.7 mg/dL (0.7-1.3) Estimated GFR (Cockcroft-Gault) 38.7 Glucose Level 281 mg/dL (70-99) Calcium Level 8.3 mg/dL (8.5-10.1) Lactate Dehydrogenase 179 U/L (85-227) Creatine Kinase 79 U/L (39-308) C-Reactive Protein, Quantitative 272.4 mg/L (0-3.3) Test 05/09/20 11:28 05/09/20 16:47 05/09/20 23:45 05/10/20 04:30 Glucose (Fingerstick) 284 mg/dL (70-99) 248 mg/dL (70-99) 316 mg/dL (70-99) White Blood Count 3.0 x10^3/uL (4.0-11.0) Red Blood Count 3.91 x10^6/uL (4.30-5.70) Hemoglobin 10.8 g/dL (13.0-17.5) Hematocrit 32.9 % (39.0-53.0) Mean Corpuscular Volume 84 fL (79-100) Mean Corpuscular Hemoglobin 28 pg (25-35) Mean Corpuscular Hemoglobin Concent 33 g/dL (31-37) Red Cell Distribution Width 15.6 % (11.5-14.5) Platelet Count 163 x10^3/uL (140-400) Neutrophils (%) (Auto) 78 % (31-73) Lymphocytes (%) (Auto) 18 % (24-48) Monocytes (%) (Auto) 4 % (0-9) Eosinophils (%) (Auto) 0 % (0-3) Basophils (%) (Auto) 0 % (0-3) Neutrophils # (Auto) 2.4 x10^3/uL (1.8-7.7) Lymphocytes # (Auto) 0.5 x10^3/uL (1.0-4.8) Monocytes # (Auto) 0.1 x10^3/uL (0.0-1.1) Eosinophils # (Auto) 0.0 x10^3/uL (0.0-0.7) Basophils # (Auto) 0.0 x10^3/uL (0.0-0.2) Sodium Level 145 mmol/L (136-145) Potassium Level 3.8 mmol/L (3.5-5.1) Chloride Level 109 mmol/L (98-107) Carbon Dioxide Level 26 mmol/L (21-32) Anion Gap 10 (6-14) Blood Urea Nitrogen 43 mg/dL (8-26) Creatinine 1.1 mg/dL (0.7-1.3) Estimated GFR (Cockcroft-Gault) 63.9 BUN/Creatinine Ratio 39 (6-20) Glucose Level 375 mg/dL (70-99) Calcium Level 8.8 mg/dL (8.5-10.1) Total Bilirubin 0.3 mg/dL (0.2-1.0) Aspartate Amino Transf (AST/SGOT) 19 U/L (15-37) Alanine Aminotransferase (ALT/SGPT) 7 U/L (16-63) Alkaline Phosphatase 92 U/L (46-116) Total Protein 7.0 g/dL (6.4-8.2) Albumin 1.8 g/dL (3.4-5.0) Albumin/Globulin Ratio 0.3 (1.0-1.7) Laboratory Tests Test 05/09/20 11:28 05/09/20 16:47 05/09/20 23:45 05/10/20 04:30 Glucose (Fingerstick) 284 mg/dL (70-99) 248 mg/dL (70-99) 316 mg/dL (70-99) White Blood Count 3.0 x10^3/uL (4.0-11.0) Red Blood Count 3.91 x10^6/uL (4.30-5.70) Hemoglobin 10.8 g/dL (13.0-17.5) Hematocrit 32.9 % (39.0-53.0) Mean Corpuscular Volume 84 fL (79-100) Mean Corpuscular Hemoglobin 28 pg (25-35) Mean Corpuscular Hemoglobin Concent 33 g/dL (31-37) Red Cell Distribution Width 15.6 % (11.5-14.5) Platelet Count 163 x10^3/uL (140-400) Neutrophils (%) (Auto) 78 % (31-73) Lymphocytes (%) (Auto) 18 % (24-48) Monocytes (%) (Auto) 4 % (0-9) Eosinophils (%) (Auto) 0 % (0-3) Basophils (%) (Auto) 0 % (0-3) Neutrophils # (Auto) 2.4 x10^3/uL (1.8-7.7) Lymphocytes # (Auto) 0.5 x10^3/uL (1.0-4.8) Monocytes # (Auto) 0.1 x10^3/uL (0.0-1.1) Eosinophils # (Auto) 0.0 x10^3/uL (0.0-0.7) Basophils # (Auto) 0.0 x10^3/uL (0.0-0.2) Sodium Level 145 mmol/L (136-145) Potassium Level 3.8 mmol/L (3.5-5.1) Chloride Level 109 mmol/L (98-107) Carbon Dioxide Level 26 mmol/L (21-32) Anion Gap 10 (6-14) Blood Urea Nitrogen 43 mg/dL (8-26) Creatinine 1.1 mg/dL (0.7-1.3) Estimated GFR (Cockcroft-Gault) 63.9 BUN/Creatinine Ratio 39 (6-20) Glucose Level 375 mg/dL (70-99) Calcium Level 8.8 mg/dL (8.5-10.1) Total Bilirubin 0.3 mg/dL (0.2-1.0) Aspartate Amino Transf (AST/SGOT) 19 U/L (15-37) Alanine Aminotransferase (ALT/SGPT) 7 U/L (16-63) Alkaline Phosphatase 92 U/L (46-116) Total Protein 7.0 g/dL (6.4-8.2) Albumin 1.8 g/dL (3.4-5.0) Albumin/Globulin Ratio 0.3 (1.0-1.7) Medications Active Scripts Medications Dose Route/Sig Max Daily Dose Days Date Category Zyvox (Linezolid) 600 Mg Tablet 600 Mg PO BID 04/15/20 Rx Cipro (Ciprofloxacin Hcl) 250 Mg Tablet 500 Mg PO BID 10 04/15/20 Rx Ondansetron Odt (Ondansetron) 4 Mg Tab.rapdis 1 Tab PO PRN Q6-8HRS 03/20/20 Rx Lantus (Insulin Glargine,Hum.rec.anlog) 100 Unit/1 Ml Vial 10 Unit SQ QHS 30 01/02/20 Rx Isosorbide Mononitrate Er (Isosorbide Mononitrate) 30 Mg Tab.er.24h 30 Mg PO DAILY 10/18/19 Reported Carvedilol 25 Mg Tablet 12.5 Mg PO BIDWMEALS 09/05/19 Reported Proair Hfa Inhaler (Albuterol Sulfate) 8.5 Gm Hfa.aer.ad 2 Puff IH PRN Q4-6HRS PRN 21 09/05/19 Reported Aspirin 81 Mg Tab.chew 1 Tab PO DAILY 09/05/19 Reported Vitamin D2 (Ergocalciferol (Vitamin D2)) 50,000 Unit Capsule 1 Cap PO WEEKLY 28 09/05/19 Reported Lisinopril 40 Mg Tablet 20 Mg PO DAILY PRN 09/05/19 Reported Gabapentin 600 Mg Tablet 300 Mg PO QHS 09/05/19 Reported Emperatriz-Bid Caplet (Acidoph/L.bulg/Bif.b/S.thermop) 1 Each Tablet 1 Each PO TIDAC 03/23/17 Reported Atorvastatin Calcium 10 Mg Tablet 10 Mg PO QHS 09/16/16 Rx Midodrine Hcl 2.5 Mg Tablet 2.5 Mg PO [id number] 09/16/16 Rx Duloxetine Hcl 60 Mg Capsule.dr 60 Mg PO DAILY 09/12/16 Reported Impression . IMPRESSION: 1. Acute hypoxemic respiratory failure. 2. Elevated troponin, suspect, and non-ST segment elevation myocardial infarction. 3. Acute on chronic systolic heart failure. 4. Possible aspiration pneumonia. 5. Acute on chronic kidney disease. 6. Hypertension. 7. Diabetes. 8. Toxic metabolic encephalopathy. 9. Possible sepsis. 10. History of SARS-CoV-2 positive. 11. 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 12. History of Clostridium difficile. 13. SARS COVID positive/COVID-19 disease Plan . Requiring less oxygen supplementation Add steroids Oxygen supplementation Empiric antibiotic daptomycin linezolid and meropenem, changes per ID Follow cardiology input Monitor blood sugars Total cumulative critical care time of 30 minutes, reviewing data, labs, data, and formulating a plan FAMILIA DUARTE MD May 10, 2020 08:39
--- NOTE | 2020-05-10 08:48 | PDOC ---
GENERAL General: vss with tmax 101.4. much more awake and alert today and recognized me and interacts. sugars still high and insulin adjusted. wbc depressed at 3K this am. creatinine decreased to 1.1. blood pressures much better. O2 sats good on room air today. discussed with nursing and could move to floor. VITAL SIGNS/I&O Vital Signs/I&O: Vital Signs Date Time Temp Pulse Resp B/P (MAP) Pulse Ox O2 Delivery O2 Flow Rate FiO2 05/10/20 08:00 98.0 62 14 153/73 (99) 99 Room Air 98.0 05/10/20 06:00 15.0 I & O 05/09/20 05/09/20 05/10/20 15:00 23:00 07:00 Intake Total 0 ml 50 ml 1638 ml Output Total 50 ml 225 ml 1100 ml Balance -50 ml -175 ml 538 ml ALLERGIES Allergies: Allergies Coded Allergies Type Severity Reaction Last Updated Verified Influenza Virus Vaccines Allergy Intermediate 05/09/17 Yes I S O L A T I O N *CONTACT* Allergy Unknown 05/12/17 Yes MEDS Medications: Current Medications Medications (Trade) Dose Ordered Sig/Chay Route PRN Reason Start Time Stop Time Status Last Admin Dose Admin Methylprednisolone Sodium Succinate (SOLU-Medrol 125MG VIAL) 80 mg Q8HRS IV 05/09/20 14:00 05/10/20 05:53 LAB Lab: Laboratory Tests Test 05/09/20 11:28 05/09/20 16:47 05/09/20 23:45 05/10/20 04:30 Glucose (Fingerstick) 284 mg/dL (70-99) H 248 mg/dL (70-99) H 316 mg/dL (70-99) H White Blood Count 3.0 x10^3/uL (4.0-11.0) L Red Blood Count 3.91 x10^6/uL (4.30-5.70) L Hemoglobin 10.8 g/dL (13.0-17.5) L Hematocrit 32.9 % (39.0-53.0) L Mean Corpuscular Volume 84 fL (79-100) Mean Corpuscular Hemoglobin 28 pg (25-35) Mean Corpuscular Hemoglobin Concent 33 g/dL (31-37) Red Cell Distribution Width 15.6 % (11.5-14.5) H Platelet Count 163 x10^3/uL (140-400) Neutrophils (%) (Auto) 78 % (31-73) H Lymphocytes (%) (Auto) 18 % (24-48) L Monocytes (%) (Auto) 4 % (0-9) Eosinophils (%) (Auto) 0 % (0-3) Basophils (%) (Auto) 0 % (0-3) Neutrophils # (Auto) 2.4 x10^3/uL (1.8-7.7) Lymphocytes # (Auto) 0.5 x10^3/uL (1.0-4.8) L Monocytes # (Auto) 0.1 x10^3/uL (0.0-1.1) Eosinophils # (Auto) 0.0 x10^3/uL (0.0-0.7) Basophils # (Auto) 0.0 x10^3/uL (0.0-0.2) Sodium Level 145 mmol/L (136-145) Potassium Level 3.8 mmol/L (3.5-5.1) Chloride Level 109 mmol/L (98-107) H Carbon Dioxide Level 26 mmol/L (21-32) Anion Gap 10 (6-14) Blood Urea Nitrogen 43 mg/dL (8-26) H Creatinine 1.1 mg/dL (0.7-1.3) Estimated GFR (Cockcroft-Gault) 63.9 BUN/Creatinine Ratio 39 (6-20) H Glucose Level 375 mg/dL (70-99) H Calcium Level 8.8 mg/dL (8.5-10.1) Total Bilirubin 0.3 mg/dL (0.2-1.0) Aspartate Amino Transferase (AST) 19 U/L (15-37) Alanine Aminotransferase (ALT) 7 U/L (16-63) L Alkaline Phosphatase 92 U/L (46-116) Total Protein 7.0 g/dL (6.4-8.2) Albumin 1.8 g/dL (3.4-5.0) L Albumin/Globulin Ratio 0.3 (1.0-1.7) L Laboratory Tests 05/10/20 04:30 Laboratory Tests 05/10/20 04:30 Justicifation of Admission Dx: Justifications for Admission: Justification of Admission Dx: Yes Sepsis: Infection [place]: Acute NSTEMI Nutrition Consultation Dietary Evaluation: Recommendations by RD: Dietary education by RD, Increase Calorie Intake, Protein supplementation Comments: REC advance diet within 24-48 hrs pending respiratory status, goal diet ADA/cardiac w/glucerna (vanilla) TID or per pt preference. Also recommend Vit C and MVI for wound healing If extended NPO (>day 4), would recommend consideration of short-term non-oral nutrition support (PPN or dobhoff for TFs) Expected Outcomes/Goals: Diet advancement Interpretation of weight loss: >5% in 1 month Malnutrition Findings: Food and Nutrition Intake (Sev: <50% est energy req 5days Weight Status: Appropriate LUISITO RUSSELL MD May 10, 2020 08:47
[2020-05-10] MEDS: ASPIRIN RECTAL 300 MG SUPP. PR SCH (09:00)
[2020-05-10] MEDS: LACTOBACILLUS RHAMNOSUS GG 1 CAPSULE. PO SCH ×2 (09:00→21:00)
[2020-05-10] MEDS: VITS A & D/LANOLIN TOPICAL OINTMENT 42GM TUBE. TP SCH ×2 (09:00→21:00)
[2020-05-10] MEDS: AMINO AC 3%/ELECTROLYTE/GLYCER 1,000 ML IV SCH (11:10)
--- NOTE | 2020-05-10 12:07 | NUR ---
SS following up with discharge planning. SS reviewed pt chart and discussed with pt RN. Pt is skilled rehabilitation resident from [facility], ; fax [phone]. SS phoned and faxed clinical updates to [facility]. Pt is COVID19 positive. Pt currently on room air, PPN, and IV Merpenem. SS will continue to follow for discharge planning.
[2020-05-10] MEDS: MEROPENEM 500 MG in IV NORMAL SALINE 50ML 50 ML IV SCH ×2 (12:30→22:13)
[2020-05-10] MEDS: hydrALAZINE 20 MG/ML VIAL. IVP PRN (12:32)
[2020-05-10] MEDS: INSULIN LISPRO 300 UNITS/3 ML VIAL. SQ PRN ×2 (12:42→17:59)
--- NOTE | 2020-05-10 12:47 | PDOC ---
[facility] NURSE 05/10/20 1246: CARDIO Progress Notes Date and Time Date of Service 05/10/20 Time of Evaluation 1210 Subjective Subjective: Other (NC, nonverbal ) Vitals Vitals Vital Signs Date Time Temp Pulse Resp B/P (MAP) Pulse Ox O2 Delivery O2 Flow Rate FiO2 05/10/20 12:32 64 176/84 05/10/20 11:21 95 Room Air 05/10/20 10:00 18 05/10/20 09:00 6.0 05/10/20 08:00 98.0 98.0 Weight Weight [ ] Input and Output Intake and Output Intake and Output 05/10/20 07:00 Intake Total 1688 ml Output Total 1375 ml Balance 313 ml Intake Oral 0 ml IV Total 1688 ml Output Urine Total 1375 ml Laboratory Labs Laboratory Tests Test 05/09/20 16:47 05/09/20 23:45 05/10/20 04:30 05/10/20 12:38 Glucose (Fingerstick) 248 mg/dL (70-99) 316 mg/dL (70-99) 419 mg/dL (70-99) White Blood Count 3.0 x10^3/uL (4.0-11.0) Red Blood Count 3.91 x10^6/uL (4.30-5.70) Hemoglobin 10.8 g/dL (13.0-17.5) Hematocrit 32.9 % (39.0-53.0) Mean Corpuscular Volume 84 fL (79-100) Mean Corpuscular Hemoglobin 28 pg (25-35) Mean Corpuscular Hemoglobin Concent 33 g/dL (31-37) Red Cell Distribution Width 15.6 % (11.5-14.5) Platelet Count 163 x10^3/uL (140-400) Neutrophils (%) (Auto) 78 % (31-73) Lymphocytes (%) (Auto) 18 % (24-48) Monocytes (%) (Auto) 4 % (0-9) Eosinophils (%) (Auto) 0 % (0-3) Basophils (%) (Auto) 0 % (0-3) Neutrophils # (Auto) 2.4 x10^3/uL (1.8-7.7) Lymphocytes # (Auto) 0.5 x10^3/uL (1.0-4.8) Monocytes # (Auto) 0.1 x10^3/uL (0.0-1.1) Eosinophils # (Auto) 0.0 x10^3/uL (0.0-0.7) Basophils # (Auto) 0.0 x10^3/uL (0.0-0.2) Sodium Level 145 mmol/L (136-145) Potassium Level 3.8 mmol/L (3.5-5.1) Chloride Level 109 mmol/L (98-107) Carbon Dioxide Level 26 mmol/L (21-32) Anion Gap 10 (6-14) Blood Urea Nitrogen 43 mg/dL (8-26) Creatinine 1.1 mg/dL (0.7-1.3) Estimated GFR (Cockcroft-Gault) 63.9 BUN/Creatinine Ratio 39 (6-20) Glucose Level 375 mg/dL (70-99) Calcium Level 8.8 mg/dL (8.5-10.1) Total Bilirubin 0.3 mg/dL (0.2-1.0) Aspartate Amino Transf (AST/SGOT) 19 U/L (15-37) Alanine Aminotransferase (ALT/SGPT) 7 U/L (16-63) Alkaline Phosphatase 92 U/L (46-116) Total Protein 7.0 g/dL (6.4-8.2) Albumin 1.8 g/dL (3.4-5.0) Albumin/Globulin Ratio 0.3 (1.0-1.7) Microbiology Micro Microbiology 05/06/20 Urine Culture - Final, Complete 05/06/20 Antimicrobic Susceptibility - Final, Complete 05/06/20 Blood Culture - Preliminary, Resulted NO GROWTH AFTER 3 DAYS Physical Exam HEENT: Neck Supple W Full Motion Chest: Symmetric LUNGS: Other (CXR reviwed) Heart: S1S2, RRR (SR) Neurology: alert, non-verbal Assessment Assessment 1. Acute respiratory failure secondary to COVID PNA. Fevers. Improving. svetlana curtis sats on RA 2. Acute on chronic systolic CHF; Echo 12/22 with preserved LV systolic function 3. NSTEMI; highest trop 0.5. Most probably type II, demand ischemia with multiple culprits noted. LVEF 50-55% 4. AMANUEL on CKD; improved with IVFs 5. Hypertension; controlled 6. Metabolic encephalopathy; non-verbal 7. CAD; details unknown 8. Diabetes, II; uncontrolled. as per IM 9. PAD s/p right BKA 10. UTI Recommendations ASA therapy Antibiotics, steroids Hydralazine PRN Ongoing support Justicifation of Admission Dx: Justifications for Admission: Justification of Admission Dx: Yes Sepsis: Infection [place]: Acute NSTEMI GURWINDER OCONNELL MD 05/10/20 1842: CARDIO Progress Notes Plan Plan Pt. seen and examined. Agree with above MESSAGE BROKER DEVELOPER note. Supportive care. JOBY JAMIL APRN May 10, 2020 12:46 GURWINDER OCONNELL MD May 10, 2020 18:42
[2020-05-10] MEDS: INSULIN GLARGINE SYRINGE. SQ SCH (22:47)
[2020-05-11 00:45] VITALS: BP 155/80
[2020-05-11] MEDS: INSULIN LISPRO 300 UNITS/3 ML VIAL. SQ SCH ×4 (00:45→18:01)
[2020-05-11 04:22] VITALS: BP 167/83
[2020-05-11 05:15] LABS: BASO % 0 % (0-3); EOS % 0 % (0-3); HEMATOCRIT 36.9 % (39.0-53.0); HEMOGLOBIN 12.2 g/dL (13.0-17.5); LYMPH # 0.8 x10^3/uL (1.0-4.8); LYMPH % 18 % (24-48); MEAN CORPUSCULAR HEMOGLOBIN 28 pg (25-35); MEAN CORPUSCULAR HGB CONC 33 g/dL (31-37); MEAN CORPUSCULAR VOLUME 84 fL (79-100); MONO # 0.4 x10^3/uL (0.0-1.1); MONO % 9 % (0-9); NEUT # 3.4 x10^3/uL (1.8-7.7); NEUT % 73 % (31-73); PLATELET COUNT 216 x10^3/uL (140-400); RED BLOOD COUNT 4.38 x10^6/uL (4.30-5.70); RED CELL DISTRIBUTION WIDTH 15.5 % (11.5-14.5); WHITE BLOOD COUNT 4.6 x10^3/uL (4.0-11.0)
[2020-05-11] MEDS: AMINO AC 3%/ELECTROLYTE/GLYCER 1,000 ML IV SCH ×2 (05:44→22:09)
[2020-05-11] MEDS: MEROPENEM 500 MG in IV NORMAL SALINE 50ML 50 ML IV SCH ×3 (05:45→22:16)
[2020-05-11 06:00] LABS: ALBUMIN/GLOBULIN RATIO 0.4 (1.0-1.7); CALCIUM 9.7 mg/dL (8.5-10.1); CREATININE 1.3 mg/dL (0.7-1.3); GFR 52.7; TOTAL BILIRUBIN 0.3 mg/dL (0.2-1.0); TOTAL PROTEIN 7.4 g/dL (6.4-8.2)
[2020-05-11] MEDS: methylPREDNISolone SOD SUCC PF 125 MG/2 ML VIAL. IV SCH ×3 (06:16→22:18)
[2020-05-11 06:30] LABS: POTASSIUM 4.3 mmol/L (3.5-5.1)
[2020-05-11] MEDS: INSULIN LISPRO 300 UNITS/3 ML VIAL. SQ PRN ×2 (06:42→12:09)
--- NOTE | 2020-05-11 07:36 | PDOC ---
Infectious Disease Note Subjective Subjective On room air Alert but seems confused today ROS ROS unable to obtain Vital Sign Vital Signs Vital Signs Date Time Temp Pulse Resp B/P (MAP) Pulse Ox O2 Delivery O2 Flow Rate FiO2 05/11/20 04:22 97.1 65 20 167/83 (111) 99 Room Air 97.1 05/10/20 09:00 6.0 Physical Exam PHYSICAL EXAM CONSTITUTIONAL: He is alert. He is no acute distress. Appears comfortable HEENT: Oral cavity, pharynx has poor dentition, dry. He has normal conjunctivae. NECK: Supple, without JVD. LUNGS: mild rhonchi this am HEART: S1, S2. ABDOMEN: Soft, nontender, nondistended. No rebound or guarding. GENITOURINARY: Alcaraz is in place. EXTREMITIES: Right below-knee amputation without signs of complications, LLE without edema.Foot callous with iodine - NT NEUROLOGICAL: He is alert, moved ext. Some verbal today but more mumbles Labs Lab Laboratory Tests Test 05/10/20 12:38 05/10/20 17:57 05/10/20 22:38 05/11/20 00:35 Glucose (Fingerstick) 419 mg/dL (70-99) 369 mg/dL (70-99) 319 mg/dL (70-99) 290 mg/dL (70-99) Test 05/11/20 05:00 05/11/20 06:23 White Blood Count 4.6 x10^3/uL (4.0-11.0) Red Blood Count 4.38 x10^6/uL (4.30-5.70) Hemoglobin 12.2 g/dL (13.0-17.5) Hematocrit 36.9 % (39.0-53.0) Mean Corpuscular Volume 84 fL (79-100) Mean Corpuscular Hemoglobin 28 pg (25-35) Mean Corpuscular Hemoglobin Concent 33 g/dL (31-37) Red Cell Distribution Width 15.5 % (11.5-14.5) Platelet Count 216 x10^3/uL (140-400) Neutrophils (%) (Auto) 73 % (31-73) Lymphocytes (%) (Auto) 18 % (24-48) Monocytes (%) (Auto) 9 % (0-9) Eosinophils (%) (Auto) 0 % (0-3) Basophils (%) (Auto) 0 % (0-3) Neutrophils # (Auto) 3.4 x10^3/uL (1.8-7.7) Lymphocytes # (Auto) 0.8 x10^3/uL (1.0-4.8) Monocytes # (Auto) 0.4 x10^3/uL (0.0-1.1) Eosinophils # (Auto) 0.0 x10^3/uL (0.0-0.7) Basophils # (Auto) 0.0 x10^3/uL (0.0-0.2) Sodium Level 150 mmol/L (136-145) Potassium Level 4.3 mmol/L (3.5-5.1) Chloride Level 111 mmol/L (98-107) Carbon Dioxide Level 29 mmol/L (21-32) Anion Gap 10 (6-14) Blood Urea Nitrogen 57 mg/dL (8-26) Creatinine 1.3 mg/dL (0.7-1.3) Estimated GFR (Cockcroft-Gault) 52.7 BUN/Creatinine Ratio 44 (6-20) Glucose Level 406 mg/dL (70-99) Calcium Level 9.7 mg/dL (8.5-10.1) Total Bilirubin 0.3 mg/dL (0.2-1.0) Aspartate Amino Transf (AST/SGOT) 16 U/L (15-37) Alanine Aminotransferase (ALT/SGPT) 12 U/L (16-63) Alkaline Phosphatase 92 U/L (46-116) Total Protein 7.4 g/dL (6.4-8.2) Albumin 2.0 g/dL (3.4-5.0) Albumin/Globulin Ratio 0.4 (1.0-1.7) Glucose (Fingerstick) 410 mg/dL (70-99) Micro 05/09 CXR Impression: 1. Linear density along the right lateral upper lung, may represent artifact related to skin fold or overlying structures. Recommend repeat PA and lateral radiograph to evaluate for pneumothorax. 2. Left basilar consolidation, decreased compared to prior. 3. Decreased small left pleural effusion CXR IMPRESSION: Interval left basilar atelectasis or consolidation. Mild interval prominence of the pulmonary interstitium in the setting of persistent low lung volumes. 10,000 CFU/ML GRAM NEGATIVE RODS on 05/08/20 at 0948 FINAL ID= [MORGANELLA MORGANII] 50,000 CFU/ML YEAST on 05/08/20 at 0948 FINAL ID= [[facility]BICANS] Testing Performed by: [address] [address] For Inquires, the Physician may contact the Microbiology department at [phone] MORGANELLA MORGANII [facility] ANTIMICROBIAL SUSCEPTIBILITY Final Comment NEG KAUR 56 MORGANELLA MORGANII ANTIBIOTIC RESULT INTERPRETATION AMPICILLIN/SULBACTAM >16/8 R AMIKACIN <=16 S AMPICILLIN >16 R AMOXICILLIN/K CLAVULANATE >16/8 R AZTREONAM >16 R CEFTRIAXONE 32 R CEFTAZIDIME >16 R CEFOTAXIME >32 R CEFOXITIN <=8 S CIPROFLOXACIN >2 R CEFEPIME 8 S CEFUROXIME >16 R CEFTAZIDIME/AVIBACTAM <=4 S ERTAPENEM <=0.5 S NITROFURANTOIN >64 R* GENTAMICIN <=2 S LEVOFLOXACIN >4 R MEROPENEM <=1 S PIPERACILLIN/TAZOBACTAM 32 I TRIMETHOPRIM/SULFAMETHOXAZOLE >2/38 R TETRACYCLINE >8 R Microbiology 05/06/20 Blood Culture - Preliminary, Resulted NO GROWTH AFTER 1 DAY Objective Assessment COVID + - 05/07 on steroids Leukopenia - ? viral - better Fever- ? COVID ? UTI vs med - improving CKD with AMANUEL - slight worse today Acute hypoxic resp failure on 6 Facemask ? UTI - Morganella and yeast CALB - Sens pending Elevated Troponin - ? type 2 NSTEMI Recent MRSA/Pseudomonas DM - not controlled H/o C-diff Plan Plan of Care D/c Daptomycin and Linezolid (for lung) with neg cults started 05/07 - 05/09 Change alcaraz if not done Dose Fluconazole - no H/o arrhythmias for a few days 05/09 Cont Meropenem 05/07 Defer Steroids CMP and CBC in am F/u labs and cults D/w nursing TOYA MAI MD May 11, 2020 07:36
--- NOTE | 2020-05-11 07:39 | PDOC ---
GENERAL General: vss and afebrile. awake and alert and approaching baseline. chest clear, heart regular, abdomen benign. labs essentially stable. remains off O2 with good sats. continue present. VITAL SIGNS/I&O Vital Signs/I&O: Vital Signs Date Time Temp Pulse Resp B/P (MAP) Pulse Ox O2 Delivery O2 Flow Rate FiO2 05/11/20 04:22 97.1 65 20 167/83 (111) 99 Room Air 97.1 05/10/20 09:00 6.0 I & O 05/10/20 05/10/20 05/11/20 15:00 23:00 07:00 Intake Total 50 ml 1050 ml Output Total 700 ml 625 ml Balance -700 ml 50 ml 425 ml ALLERGIES Allergies: Allergies Coded Allergies Type Severity Reaction Last Updated Verified Influenza Virus Vaccines Allergy Intermediate 05/09/17 Yes I S O L A T I O N *CONTACT* Allergy Unknown 05/12/17 Yes MEDS Medications: Current Medications Medications (Trade) Dose Ordered Sig/Chay Route PRN Reason Start Time Stop Time Status Last Admin Dose Admin Meropenem 500 mg/ Sodium Chloride 50 ml @ 100 mls/hr Q8HRS IV 05/10/20 21:00 05/11/20 05:45 LAB Lab: Laboratory Tests Test 05/10/20 12:38 05/10/20 17:57 05/10/20 22:38 05/11/20 00:35 Glucose (Fingerstick) 419 mg/dL (70-99) H 369 mg/dL (70-99) H 319 mg/dL (70-99) H 290 mg/dL (70-99) H Test 05/11/20 05:00 05/11/20 06:23 White Blood Count 4.6 x10^3/uL (4.0-11.0) Red Blood Count 4.38 x10^6/uL (4.30-5.70) Hemoglobin 12.2 g/dL (13.0-17.5) L Hematocrit 36.9 % (39.0-53.0) L Mean Corpuscular Volume 84 fL (79-100) Mean Corpuscular Hemoglobin 28 pg (25-35) Mean Corpuscular Hemoglobin Concent 33 g/dL (31-37) Red Cell Distribution Width 15.5 % (11.5-14.5) H Platelet Count 216 x10^3/uL (140-400) Neutrophils (%) (Auto) 73 % (31-73) Lymphocytes (%) (Auto) 18 % (24-48) L Monocytes (%) (Auto) 9 % (0-9) Eosinophils (%) (Auto) 0 % (0-3) Basophils (%) (Auto) 0 % (0-3) Neutrophils # (Auto) 3.4 x10^3/uL (1.8-7.7) Lymphocytes # (Auto) 0.8 x10^3/uL (1.0-4.8) L Monocytes # (Auto) 0.4 x10^3/uL (0.0-1.1) Eosinophils # (Auto) 0.0 x10^3/uL (0.0-0.7) Basophils # (Auto) 0.0 x10^3/uL (0.0-0.2) Sodium Level 150 mmol/L (136-145) H Potassium Level 4.3 mmol/L (3.5-5.1) Chloride Level 111 mmol/L (98-107) H Carbon Dioxide Level 29 mmol/L (21-32) Anion Gap 10 (6-14) Blood Urea Nitrogen 57 mg/dL (8-26) H Creatinine 1.3 mg/dL (0.7-1.3) Estimated GFR (Cockcroft-Gault) 52.7 BUN/Creatinine Ratio 44 (6-20) H Glucose Level 406 mg/dL (70-99) H Calcium Level 9.7 mg/dL (8.5-10.1) Total Bilirubin 0.3 mg/dL (0.2-1.0) Aspartate Amino Transferase (AST) 16 U/L (15-37) Alanine Aminotransferase (ALT) 12 U/L (16-63) L Alkaline Phosphatase 92 U/L (46-116) Total Protein 7.4 g/dL (6.4-8.2) Albumin 2.0 g/dL (3.4-5.0) L Albumin/Globulin Ratio 0.4 (1.0-1.7) L Glucose (Fingerstick) 410 mg/dL (70-99) H Laboratory Tests 05/11/20 05:00 Laboratory Tests 05/11/20 05:00 Justicifation of Admission Dx: Justifications for Admission: Justification of Admission Dx: Yes Sepsis: Infection [place]: Acute NSTEMI Nutrition Consultation Dietary Evaluation: Recommendations by RD: Dietary education by RD, Increase Calorie Intake, Protein supplementation, PPN/TPN Comments: Continue w/PPN for short-term non-oral nutrition needs If continued aggressive care desired and if unable to advance diet, would recommend dobhoff for TFs to best meet nutrition needs, rec TFs per following: Glucerna 1.2@goal rate 50 ml/hr w/125 ml water flushes q4 hrs w/Pepe BID and liquid MVI (wound healing) Expected Outcomes/Goals: Diet advancement - not met, goal ongoing Interpretation of weight loss: >5% in 1 month Malnutrition Findings: Food and Nutrition Intake (Sev: <50% est energy req 5days Weight Status: Appropriate LUISITO RUSSELL MD May 11, 2020 07:39
[2020-05-11 08:00] VITALS: BP 199/100
[2020-05-11] MEDS: INSULIN GLARGINE SYRINGE. SQ SCH ×2 (08:00→22:13)
--- NOTE | 2020-05-11 08:37 | PDOC ---
PULMONARY PROGRESS NOTES Subjective Patient awake alert confused, no evidence of respiratory distress Vitals Vital Signs Date Time Temp Pulse Resp B/P (MAP) Pulse Ox O2 Delivery O2 Flow Rate FiO2 05/11/20 04:22 97.1 65 20 167/83 (111) 99 Room Air 97.1 05/10/20 09:00 6.0 General: Alert Lungs: Crackles Cardiovascular: S1, S2 Abdomen: Soft Extremities: Other (Edema) Skin: Warm Labs Laboratory Tests Test 05/09/20 11:28 05/09/20 16:47 05/09/20 23:45 05/10/20 04:30 Glucose (Fingerstick) 284 mg/dL (70-99) 248 mg/dL (70-99) 316 mg/dL (70-99) White Blood Count 3.0 x10^3/uL (4.0-11.0) Red Blood Count 3.91 x10^6/uL (4.30-5.70) Hemoglobin 10.8 g/dL (13.0-17.5) Hematocrit 32.9 % (39.0-53.0) Mean Corpuscular Volume 84 fL (79-100) Mean Corpuscular Hemoglobin 28 pg (25-35) Mean Corpuscular Hemoglobin Concent 33 g/dL (31-37) Red Cell Distribution Width 15.6 % (11.5-14.5) Platelet Count 163 x10^3/uL (140-400) Neutrophils (%) (Auto) 78 % (31-73) Lymphocytes (%) (Auto) 18 % (24-48) Monocytes (%) (Auto) 4 % (0-9) Eosinophils (%) (Auto) 0 % (0-3) Basophils (%) (Auto) 0 % (0-3) Neutrophils # (Auto) 2.4 x10^3/uL (1.8-7.7) Lymphocytes # (Auto) 0.5 x10^3/uL (1.0-4.8) Monocytes # (Auto) 0.1 x10^3/uL (0.0-1.1) Eosinophils # (Auto) 0.0 x10^3/uL (0.0-0.7) Basophils # (Auto) 0.0 x10^3/uL (0.0-0.2) Sodium Level 145 mmol/L (136-145) Potassium Level 3.8 mmol/L (3.5-5.1) Chloride Level 109 mmol/L (98-107) Carbon Dioxide Level 26 mmol/L (21-32) Anion Gap 10 (6-14) Blood Urea Nitrogen 43 mg/dL (8-26) Creatinine 1.1 mg/dL (0.7-1.3) Estimated GFR (Cockcroft-Gault) 63.9 BUN/Creatinine Ratio 39 (6-20) Glucose Level 375 mg/dL (70-99) Calcium Level 8.8 mg/dL (8.5-10.1) Total Bilirubin 0.3 mg/dL (0.2-1.0) Aspartate Amino Transf (AST/SGOT) 19 U/L (15-37) Alanine Aminotransferase (ALT/SGPT) 7 U/L (16-63) Alkaline Phosphatase 92 U/L (46-116) Total Protein 7.0 g/dL (6.4-8.2) Albumin 1.8 g/dL (3.4-5.0) Albumin/Globulin Ratio 0.3 (1.0-1.7) Test 05/10/20 12:38 05/10/20 17:57 05/10/20 22:38 05/11/20 00:35 Glucose (Fingerstick) 419 mg/dL (70-99) 369 mg/dL (70-99) 319 mg/dL (70-99) 290 mg/dL (70-99) Test 05/11/20 05:00 05/11/20 06:23 White Blood Count 4.6 x10^3/uL (4.0-11.0) Red Blood Count 4.38 x10^6/uL (4.30-5.70) Hemoglobin 12.2 g/dL (13.0-17.5) Hematocrit 36.9 % (39.0-53.0) Mean Corpuscular Volume 84 fL (79-100) Mean Corpuscular Hemoglobin 28 pg (25-35) Mean Corpuscular Hemoglobin Concent 33 g/dL (31-37) Red Cell Distribution Width 15.5 % (11.5-14.5) Platelet Count 216 x10^3/uL (140-400) Neutrophils (%) (Auto) 73 % (31-73) Lymphocytes (%) (Auto) 18 % (24-48) Monocytes (%) (Auto) 9 % (0-9) Eosinophils (%) (Auto) 0 % (0-3) Basophils (%) (Auto) 0 % (0-3) Neutrophils # (Auto) 3.4 x10^3/uL (1.8-7.7) Lymphocytes # (Auto) 0.8 x10^3/uL (1.0-4.8) Monocytes # (Auto) 0.4 x10^3/uL (0.0-1.1) Eosinophils # (Auto) 0.0 x10^3/uL (0.0-0.7) Basophils # (Auto) 0.0 x10^3/uL (0.0-0.2) Sodium Level 150 mmol/L (136-145) Potassium Level 4.3 mmol/L (3.5-5.1) Chloride Level 111 mmol/L (98-107) Carbon Dioxide Level 29 mmol/L (21-32) Anion Gap 10 (6-14) Blood Urea Nitrogen 57 mg/dL (8-26) Creatinine 1.3 mg/dL (0.7-1.3) Estimated GFR (Cockcroft-Gault) 52.7 BUN/Creatinine Ratio 44 (6-20) Glucose Level 406 mg/dL (70-99) Calcium Level 9.7 mg/dL (8.5-10.1) Total Bilirubin 0.3 mg/dL (0.2-1.0) Aspartate Amino Transf (AST/SGOT) 16 U/L (15-37) Alanine Aminotransferase (ALT/SGPT) 12 U/L (16-63) Alkaline Phosphatase 92 U/L (46-116) Total Protein 7.4 g/dL (6.4-8.2) Albumin 2.0 g/dL (3.4-5.0) Albumin/Globulin Ratio 0.4 (1.0-1.7) Glucose (Fingerstick) 410 mg/dL (70-99) Laboratory Tests Test 05/10/20 12:38 05/10/20 17:57 05/10/20 22:38 05/11/20 00:35 Glucose (Fingerstick) 419 mg/dL (70-99) 369 mg/dL (70-99) 319 mg/dL (70-99) 290 mg/dL (70-99) Test 05/11/20 05:00 05/11/20 06:23 White Blood Count 4.6 x10^3/uL (4.0-11.0) Red Blood Count 4.38 x10^6/uL (4.30-5.70) Hemoglobin 12.2 g/dL (13.0-17.5) Hematocrit 36.9 % (39.0-53.0) Mean Corpuscular Volume 84 fL (79-100) Mean Corpuscular Hemoglobin 28 pg (25-35) Mean Corpuscular Hemoglobin Concent 33 g/dL (31-37) Red Cell Distribution Width 15.5 % (11.5-14.5) Platelet Count 216 x10^3/uL (140-400) Neutrophils (%) (Auto) 73 % (31-73) Lymphocytes (%) (Auto) 18 % (24-48) Monocytes (%) (Auto) 9 % (0-9) Eosinophils (%) (Auto) 0 % (0-3) Basophils (%) (Auto) 0 % (0-3) Neutrophils # (Auto) 3.4 x10^3/uL (1.8-7.7) Lymphocytes # (Auto) 0.8 x10^3/uL (1.0-4.8) Monocytes # (Auto) 0.4 x10^3/uL (0.0-1.1) Eosinophils # (Auto) 0.0 x10^3/uL (0.0-0.7) Basophils # (Auto) 0.0 x10^3/uL (0.0-0.2) Sodium Level 150 mmol/L (136-145) Potassium Level 4.3 mmol/L (3.5-5.1) Chloride Level 111 mmol/L (98-107) Carbon Dioxide Level 29 mmol/L (21-32) Anion Gap 10 (6-14) Blood Urea Nitrogen 57 mg/dL (8-26) Creatinine 1.3 mg/dL (0.7-1.3) Estimated GFR (Cockcroft-Gault) 52.7 BUN/Creatinine Ratio 44 (6-20) Glucose Level 406 mg/dL (70-99) Calcium Level 9.7 mg/dL (8.5-10.1) Total Bilirubin 0.3 mg/dL (0.2-1.0) Aspartate Amino Transf (AST/SGOT) 16 U/L (15-37) Alanine Aminotransferase (ALT/SGPT) 12 U/L (16-63) Alkaline Phosphatase 92 U/L (46-116) Total Protein 7.4 g/dL (6.4-8.2) Albumin 2.0 g/dL (3.4-5.0) Albumin/Globulin Ratio 0.4 (1.0-1.7) Glucose (Fingerstick) 410 mg/dL (70-99) Medications Active Scripts Medications Dose Route/Sig Max Daily Dose Days Date Category Zyvox (Linezolid) 600 Mg Tablet 600 Mg PO BID 10 04/15/20 Rx Cipro (Ciprofloxacin Hcl) 250 Mg Tablet 500 Mg PO BID 10 04/15/20 Rx Ondansetron Odt (Ondansetron) 4 Mg Tab.rapdis 1 Tab PO PRN Q6-8HRS 03/20/20 Rx Lantus (Insulin Glargine,Hum.rec.anlog) 100 Unit/1 Ml Vial 10 Unit SQ QHS 30 01/02/20 Rx Isosorbide Mononitrate Er (Isosorbide Mononitrate) 30 Mg Tab.er.24h 30 Mg PO DAILY 10/18/19 Reported Carvedilol 25 Mg Tablet 12.5 Mg PO BIDWMEALS 09/05/19 Reported Proair Hfa Inhaler (Albuterol Sulfate) 8.5 Gm Hfa.aer.ad 2 Puff IH PRN Q4-6HRS PRN 21 09/05/19 Reported Aspirin 81 Mg Tab.chew 1 Tab PO DAILY 09/05/19 Reported Vitamin D2 (Ergocalciferol (Vitamin D2)) 50,000 Unit Capsule 1 Cap PO WEEKLY 28 09/05/19 Reported Lisinopril 40 Mg Tablet 20 Mg PO DAILY PRN 09/05/19 Reported Gabapentin 600 Mg Tablet 300 Mg PO QHS 09/05/19 Reported Emperatriz-Bid Caplet (Acidoph/L.bulg/Bif.b/S.thermop) 1 Each Tablet 1 Each PO TIDAC 03/23/17 Reported Atorvastatin Calcium 10 Mg Tablet 10 Mg PO QHS 09/16/16 Rx Midodrine Hcl 2.5 Mg Tablet 2.5 Mg PO [id number] 09/16/16 Rx Duloxetine Hcl 60 Mg Capsule.dr 60 Mg PO DAILY 09/12/16 Reported Impression . IMPRESSION: 1. Acute hypoxemic respiratory failure. 2. Elevated troponin, suspect, and non-ST segment elevation myocardial infarction. 3. Acute on chronic systolic heart failure. 4. Possible aspiration pneumonia. 5. Acute on chronic kidney disease. 6. Hypertension. 7. Diabetes. 8. Toxic metabolic encephalopathy. 9. Possible sepsis. 10. History of SARS-CoV-2 positive. 11. 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 12. History of Clostridium difficile. 13. SARS COVID positive/COVID-19 disease Plan . We will continue current support Requiring less oxygen supplementation Add steroids Oxygen supplementation Empiric antibiotic daptomycin linezolid and meropenem, changes per ID Follow cardiology input Monitor blood sugars Total cumulative critical care time of 30 minutes, reviewing data, labs, data, and formulating a plan FAMILIA DUARTE MD May 11, 2020 08:37
[2020-05-11] MEDS: VITS A & D/LANOLIN TOPICAL OINTMENT 42GM TUBE. TP SCH ×2 (09:00→22:18)
[2020-05-11] MEDS: ASPIRIN RECTAL 300 MG SUPP. PR SCH (09:10)
[2020-05-11] MEDS: LACTOBACILLUS RHAMNOSUS GG 1 CAPSULE. PO SCH ×2 (09:10→21:00)
[2020-05-11] MEDS: FLUCONAZOLE 100MG/50ML PREMIX 50 ML IV SCH (09:10)
[2020-05-11] MEDS: hydrALAZINE 20 MG/ML VIAL. IVP PRN (09:45)
--- NOTE | 2020-05-11 11:55 | NUR ---
SS following up with discharge planning. SS reviewed pt chart and discussed with pt RN. Pt is from [facility], ; fax [phone]. Pt currently on room air, PPN, and IV Meropenem. Pt COVID19 positive. SS will continue to follow for discharge planning.
[2020-05-11 12:00] VITALS: BP 133/75
[2020-05-11 16:00] VITALS: BP 129/76
[2020-05-11] MEDS: ENOXAPARIN 40 MG/0.4 ML SYRINGE. SQ SCH ×2 (17:51→22:19)
[2020-05-11 23:00] VITALS: BP 153/78
[2020-05-12] VITALS (7 sets, daily range): BP systolic 135–182; BP diastolic 77–110
[2020-05-12 04:48] LABS: BASO % 0 % (0-3); EOS % 0 % (0-3); HEMOGLOBIN 11.9 g/dL (13.0-17.5); LYMPH # 0.6 x10^3/uL (1.0-4.8); LYMPH % 15 % (24-48); MEAN CORPUSCULAR HEMOGLOBIN 28 pg (25-35); MEAN CORPUSCULAR HGB CONC 33 g/dL (31-37); MEAN CORPUSCULAR VOLUME 84 fL (79-100); MONO # 0.4 x10^3/uL (0.0-1.1); MONO % 11 % (0-9); NEUT # 2.7 x10^3/uL (1.8-7.7); NEUT % 74 % (31-73); PLATELET COUNT 208 x10^3/uL (140-400); RED CELL DISTRIBUTION WIDTH 15.6 % (11.5-14.5); WHITE BLOOD COUNT 3.7 x10^3/uL (4.0-11.0)
[2020-05-12 05:33] LABS: CALCIUM 9.1 mg/dL (8.5-10.1); CREATININE 1.2 mg/dL (0.7-1.3); GFR 57.8; POTASSIUM 3.5 mmol/L (3.5-5.1)
[2020-05-12] MEDS: methylPREDNISolone SOD SUCC PF 125 MG/2 ML VIAL. IV SCH ×3 (05:41→21:56)
[2020-05-12] MEDS: MEROPENEM 500 MG in IV NORMAL SALINE 50ML 50 ML IV SCH ×3 (05:42→21:55)
[2020-05-12] MEDS: INSULIN LISPRO 300 UNITS/3 ML VIAL. SQ SCH ×3 (06:35→12:42)
--- NOTE | 2020-05-12 08:12 | PDOC ---
GENERAL General: vss and afebrile. awake and alert and mentation stable. wbc 3.7K, BUN 60 and creatinine 1.2. exam stable. ongoing iv antibiotics. will need rehab following dc once again. continue same. VITAL SIGNS/I&O Vital Signs/I&O: Vital Signs Date Time Temp Pulse Resp B/P (MAP) Pulse Ox O2 Delivery O2 Flow Rate FiO2 05/12/20 07:00 98.8 72 22 163/90 (114) 98 Room Air 98.8 I & O 05/11/20 05/11/20 05/12/20 15:00 23:00 07:00 Intake Total 0 ml 1000 ml 0 ml Output Total 625 ml 325 ml 1575 ml Balance -625 ml 675 ml -1575 ml ALLERGIES Allergies: Allergies Coded Allergies Type Severity Reaction Last Updated Verified Influenza Virus Vaccines Allergy Intermediate 05/09/17 Yes I S O L A T I O N *CONTACT* Allergy Unknown 05/12/17 Yes MEDS Medications: Current Medications Medications (Trade) Dose Ordered Sig/Chay Route PRN Reason Start Time Stop Time Status Last Admin Dose Admin Enoxaparin Sodium (Lovenox 40mg Syringe) 40 mg BID SQ 05/11/20 15:15 05/11/20 22:19 LAB Lab: Laboratory Tests Test 05/11/20 12:03 05/11/20 17:58 05/11/20 21:38 05/11/20 23:58 Glucose (Fingerstick) 325 mg/dL (70-99) H 202 mg/dL (70-99) H 237 mg/dL (70-99) H 286 mg/dL (70-99) H Test 05/12/20 04:00 05/12/20 05:49 05/12/20 07:17 White Blood Count 3.7 x10^3/uL (4.0-11.0) L Red Blood Count 4.30 x10^6/uL (4.30-5.70) Hemoglobin 11.9 g/dL (13.0-17.5) L Hematocrit 36.0 % (39.0-53.0) L Mean Corpuscular Volume 84 fL (79-100) Mean Corpuscular Hemoglobin 28 pg (25-35) Mean Corpuscular Hemoglobin Concent 33 g/dL (31-37) Red Cell Distribution Width 15.6 % (11.5-14.5) H Platelet Count 208 x10^3/uL (140-400) Neutrophils (%) (Auto) 74 % (31-73) H Lymphocytes (%) (Auto) 15 % (24-48) L Monocytes (%) (Auto) 11 % (0-9) H Eosinophils (%) (Auto) 0 % (0-3) Basophils (%) (Auto) 0 % (0-3) Neutrophils # (Auto) 2.7 x10^3/uL (1.8-7.7) Lymphocytes # (Auto) 0.6 x10^3/uL (1.0-4.8) L Monocytes # (Auto) 0.4 x10^3/uL (0.0-1.1) Eosinophils # (Auto) 0.0 x10^3/uL (0.0-0.7) Basophils # (Auto) 0.0 x10^3/uL (0.0-0.2) Sodium Level 154 mmol/L (136-145) H Potassium Level 3.5 mmol/L (3.5-5.1) Chloride Level 115 mmol/L (98-107) H Carbon Dioxide Level 30 mmol/L (21-32) Anion Gap 9 (6-14) Blood Urea Nitrogen 60 mg/dL (8-26) H Creatinine 1.2 mg/dL (0.7-1.3) Estimated GFR (Cockcroft-Gault) 57.8 Glucose Level 268 mg/dL (70-99) H Calcium Level 9.1 mg/dL (8.5-10.1) Glucose (Fingerstick) 269 mg/dL (70-99) H 229 mg/dL (70-99) H Laboratory Tests 05/12/20 04:00 Laboratory Tests 05/12/20 04:00 Justicifation of Admission Dx: Justifications for Admission: Justification of Admission Dx: Yes Sepsis: Infection OR: Acute NSTEMI Nutrition Consultation Dietary Evaluation: Recommendations by RD: Dietary education by RD, Increase Calorie Intake, Protein supplementation, PPN/TPN Comments: Continue w/PPN for short-term non-oral nutrition needs If continued aggressive care desired and if unable to advance diet, would recommend dobhoff for TFs to best meet nutrition needs, rec TFs per following: Glucerna 1.2@goal rate 50 ml/hr w/125 ml water flushes q4 hrs w/Pepe BID and liquid MVI (wound healing) Expected Outcomes/Goals: Diet advancement - not met, goal ongoing Interpretation of weight loss: >5% in 1 month Malnutrition Findings: Food and Nutrition Intake (Sev: <50% est energy req 5days Weight Status: Appropriate LUISITO RUSSELL MD May 12, 2020 08:12
--- NOTE | 2020-05-12 08:50 | PDOC ---
Infectious Disease Note Subjective Subjective On room air Alert but seems confused today - nonverbal Vital Sign Vital Signs Vital Signs Date Time Temp Pulse Resp B/P (MAP) Pulse Ox O2 Delivery O2 Flow Rate FiO2 05/12/20 07:00 98.8 72 22 163/90 (114) 98 Room Air 98.8 Physical Exam PHYSICAL EXAM CONSTITUTIONAL: He is alert. He is no acute distress. Appears comfortable HEENT: Oral cavity, pharynx has poor dentition, dry. He has normal conjunctivae. NECK: Supple, without JVD. LUNGS: mild rhonchi this am HEART: S1, S2. ABDOMEN: Soft, nontender, nondistended. No rebound or guarding. GENITOURINARY: Alcaraz is in place. EXTREMITIES: Right below-knee amputation without signs of complications, LLE without edema.Foot callous with iodine - NT NEUROLOGICAL: He is alert, moved ext. Some verbal today but more mumbles Labs Lab Laboratory Tests Test 05/11/20 12:03 05/11/20 17:58 05/11/20 21:38 05/11/20 23:58 Glucose (Fingerstick) 325 mg/dL (70-99) 202 mg/dL (70-99) 237 mg/dL (70-99) 286 mg/dL (70-99) Test 05/12/20 04:00 05/12/20 05:49 05/12/20 07:17 White Blood Count 3.7 x10^3/uL (4.0-11.0) Red Blood Count 4.30 x10^6/uL (4.30-5.70) Hemoglobin 11.9 g/dL (13.0-17.5) Hematocrit 36.0 % (39.0-53.0) Mean Corpuscular Volume 84 fL (79-100) Mean Corpuscular Hemoglobin 28 pg (25-35) Mean Corpuscular Hemoglobin Concent 33 g/dL (31-37) Red Cell Distribution Width 15.6 % (11.5-14.5) Platelet Count 208 x10^3/uL (140-400) Neutrophils (%) (Auto) 74 % (31-73) Lymphocytes (%) (Auto) 15 % (24-48) Monocytes (%) (Auto) 11 % (0-9) Eosinophils (%) (Auto) 0 % (0-3) Basophils (%) (Auto) 0 % (0-3) Neutrophils # (Auto) 2.7 x10^3/uL (1.8-7.7) Lymphocytes # (Auto) 0.6 x10^3/uL (1.0-4.8) Monocytes # (Auto) 0.4 x10^3/uL (0.0-1.1) Eosinophils # (Auto) 0.0 x10^3/uL (0.0-0.7) Basophils # (Auto) 0.0 x10^3/uL (0.0-0.2) Sodium Level 154 mmol/L (136-145) Potassium Level 3.5 mmol/L (3.5-5.1) Chloride Level 115 mmol/L (98-107) Carbon Dioxide Level 30 mmol/L (21-32) Anion Gap 9 (6-14) Blood Urea Nitrogen 60 mg/dL (8-26) Creatinine 1.2 mg/dL (0.7-1.3) Estimated GFR (Cockcroft-Gault) 57.8 Glucose Level 268 mg/dL (70-99) Calcium Level 9.1 mg/dL (8.5-10.1) Glucose (Fingerstick) 269 mg/dL (70-99) 229 mg/dL (70-99) Micro 7/8 CXR Impression: 1. Linear density along the right lateral upper lung, may represent artifact related to skin fold or overlying structures. Recommend repeat PA and lateral radiograph to evaluate for pneumothorax. 2. Left basilar consolidation, decreased compared to prior. 3. Decreased small left pleural effusion CXR IMPRESSION: Interval left basilar atelectasis or consolidation. Mild interval prominence of the pulmonary interstitium in the setting of persistent low lung volumes. 10,000 CFU/ML GRAM NEGATIVE RODS on 05/08/20 at 0948 FINAL ID= [MORGANELLA MORGANII] 50,000 CFU/ML YEAST on 05/08/20 at 0948 FINAL ID= [[facility]] Testing Performed by: [address] [address] For Inquires, the Physician may contact the Microbiology department at [phone] MORGANELLA MORGANII [facility] ANTIMICROBIAL SUSCEPTIBILITY Final Comment NEG KAUR 56 MORGANELLA MORGANII ANTIBIOTIC RESULT INTERPRETATION AMPICILLIN/SULBACTAM >16/8 R AMIKACIN <=16 S AMPICILLIN >16 R AMOXICILLIN/K CLAVULANATE >16/8 R AZTREONAM >16 R CEFTRIAXONE 32 R CEFTAZIDIME >16 R CEFOTAXIME >32 R CEFOXITIN <=8 S CIPROFLOXACIN >2 R CEFEPIME 8 S CEFUROXIME >16 R CEFTAZIDIME/AVIBACTAM <=4 S ERTAPENEM <=0.5 S NITROFURANTOIN >64 R* GENTAMICIN <=2 S LEVOFLOXACIN >4 R MEROPENEM <=1 S PIPERACILLIN/TAZOBACTAM 32 I TRIMETHOPRIM/SULFAMETHOXAZOLE >2/38 R TETRACYCLINE >8 R Microbiology 05/06/20 Blood Culture - Preliminary, Resulted NO GROWTH AFTER 1 DAY Objective Assessment COVID + - 05/07 on steroids Leukopenia - ? viral - better Fever- ? COVID ? UTI vs med - improving CKD with AMANUEL - slight worse today Acute hypoxic resp failure on 6 Facemask ? UTI - Morganella and yeast CALB - Sens pending Elevated Troponin - ? type 2 NSTEMI Recent MRSA/Pseudomonas DM - not controlled H/o C-diff Plan Plan of Care D/c Daptomycin and Linezolid (for lung) with neg cults started 05/07 - 05/09 Change alcaraz if not done Dose Fluconazole - no H/o arrhythmias for a few days 05/09 Cont Meropenem 05/07 for now Defer Steroids to pulm CMP and CBC in am F/u labs and cults D/w nursing TOYA MAI MD May 12, 2020 08:49
[2020-05-12] MEDS: ENOXAPARIN 40 MG/0.4 ML SYRINGE. SQ SCH ×3 (09:00→21:56)
[2020-05-12] MEDS: LACTOBACILLUS RHAMNOSUS GG 1 CAPSULE. PO SCH ×2 (09:00→20:33)
[2020-05-12] MEDS: FLUCONAZOLE 100MG/50ML PREMIX 50 ML IV SCH (09:43)
[2020-05-12] MEDS: ASPIRIN RECTAL 300 MG SUPP. PR SCH (09:43)
[2020-05-12] MEDS: hydrALAZINE 20 MG/ML VIAL. IVP PRN ×2 (09:47→18:27)
[2020-05-12] MEDS: VITS A & D/LANOLIN TOPICAL OINTMENT 42GM TUBE. TP SCH ×2 (10:00→21:57)
[2020-05-12] MEDS: AMINO AC 3%/ELECTROLYTE/GLYCER 1,000 ML IV SCH (12:35)
--- NOTE | 2020-05-12 17:30 | PDOC ---
PULMONARY PROGRESS NOTES Subjective on alert to himself appears comfortable Vitals Vital Signs Date Time Temp Pulse Resp B/P (MAP) Pulse Ox O2 Delivery O2 Flow Rate FiO2 05/12/20 15:30 164/82 (109) 05/12/20 14:45 98.4 81 20 98 Room Air 98.4 General: Alert Lungs: Crackles Cardiovascular: S1, S2 Abdomen: Soft Extremities: Other (Edema) Skin: Warm Labs Laboratory Tests Test 05/10/20 17:57 05/10/20 22:38 05/11/20 00:35 05/11/20 05:00 Glucose (Fingerstick) 369 mg/dL (70-99) 319 mg/dL (70-99) 290 mg/dL (70-99) White Blood Count 4.6 x10^3/uL (4.0-11.0) Red Blood Count 4.38 x10^6/uL (4.30-5.70) Hemoglobin 12.2 g/dL (13.0-17.5) Hematocrit 36.9 % (39.0-53.0) Mean Corpuscular Volume 84 fL (79-100) Mean Corpuscular Hemoglobin 28 pg (25-35) Mean Corpuscular Hemoglobin Concent 33 g/dL (31-37) Red Cell Distribution Width 15.5 % (11.5-14.5) Platelet Count 216 x10^3/uL (140-400) Neutrophils (%) (Auto) 73 % (31-73) Lymphocytes (%) (Auto) 18 % (24-48) Monocytes (%) (Auto) 9 % (0-9) Eosinophils (%) (Auto) 0 % (0-3) Basophils (%) (Auto) 0 % (0-3) Neutrophils # (Auto) 3.4 x10^3/uL (1.8-7.7) Lymphocytes # (Auto) 0.8 x10^3/uL (1.0-4.8) Monocytes # (Auto) 0.4 x10^3/uL (0.0-1.1) Eosinophils # (Auto) 0.0 x10^3/uL (0.0-0.7) Basophils # (Auto) 0.0 x10^3/uL (0.0-0.2) Sodium Level 150 mmol/L (136-145) Potassium Level 4.3 mmol/L (3.5-5.1) Chloride Level 111 mmol/L (98-107) Carbon Dioxide Level 29 mmol/L (21-32) Anion Gap 10 (6-14) Blood Urea Nitrogen 57 mg/dL (8-26) Creatinine 1.3 mg/dL (0.7-1.3) Estimated GFR (Cockcroft-Gault) 52.7 BUN/Creatinine Ratio 44 (6-20) Glucose Level 406 mg/dL (70-99) Calcium Level 9.7 mg/dL (8.5-10.1) Total Bilirubin 0.3 mg/dL (0.2-1.0) Aspartate Amino Transf (AST/SGOT) 16 U/L (15-37) Alanine Aminotransferase (ALT/SGPT) 12 U/L (16-63) Alkaline Phosphatase 92 U/L (46-116) Total Protein 7.4 g/dL (6.4-8.2) Albumin 2.0 g/dL (3.4-5.0) Albumin/Globulin Ratio 0.4 (1.0-1.7) Test 05/11/20 06:23 05/11/20 12:03 05/11/20 17:58 05/11/20 21:38 Glucose (Fingerstick) 410 mg/dL (70-99) 325 mg/dL (70-99) 202 mg/dL (70-99) 237 mg/dL (70-99) Test 05/11/20 23:58 05/12/20 04:00 05/12/20 05:49 05/12/20 07:17 Glucose (Fingerstick) 286 mg/dL (70-99) 269 mg/dL (70-99) 229 mg/dL (70-99) White Blood Count 3.7 x10^3/uL (4.0-11.0) Red Blood Count 4.30 x10^6/uL (4.30-5.70) Hemoglobin 11.9 g/dL (13.0-17.5) Hematocrit 36.0 % (39.0-53.0) Mean Corpuscular Volume 84 fL (79-100) Mean Corpuscular Hemoglobin 28 pg (25-35) Mean Corpuscular Hemoglobin Concent 33 g/dL (31-37) Red Cell Distribution Width 15.6 % (11.5-14.5) Platelet Count 208 x10^3/uL (140-400) Neutrophils (%) (Auto) 74 % (31-73) Lymphocytes (%) (Auto) 15 % (24-48) Monocytes (%) (Auto) 11 % (0-9) Eosinophils (%) (Auto) 0 % (0-3) Basophils (%) (Auto) 0 % (0-3) Neutrophils # (Auto) 2.7 x10^3/uL (1.8-7.7) Lymphocytes # (Auto) 0.6 x10^3/uL (1.0-4.8) Monocytes # (Auto) 0.4 x10^3/uL (0.0-1.1) Eosinophils # (Auto) 0.0 x10^3/uL (0.0-0.7) Basophils # (Auto) 0.0 x10^3/uL (0.0-0.2) Sodium Level 154 mmol/L (136-145) Potassium Level 3.5 mmol/L (3.5-5.1) Chloride Level 115 mmol/L (98-107) Carbon Dioxide Level 30 mmol/L (21-32) Anion Gap 9 (6-14) Blood Urea Nitrogen 60 mg/dL (8-26) Creatinine 1.2 mg/dL (0.7-1.3) Estimated GFR (Cockcroft-Gault) 57.8 Glucose Level 268 mg/dL (70-99) Calcium Level 9.1 mg/dL (8.5-10.1) Test 05/12/20 12:32 Glucose (Fingerstick) 203 mg/dL (70-99) Laboratory Tests Test 05/11/20 17:58 05/11/20 21:38 05/11/20 23:58 05/12/20 04:00 Glucose (Fingerstick) 202 mg/dL (70-99) 237 mg/dL (70-99) 286 mg/dL (70-99) White Blood Count 3.7 x10^3/uL (4.0-11.0) Red Blood Count 4.30 x10^6/uL (4.30-5.70) Hemoglobin 11.9 g/dL (13.0-17.5) Hematocrit 36.0 % (39.0-53.0) Mean Corpuscular Volume 84 fL (79-100) Mean Corpuscular Hemoglobin 28 pg (25-35) Mean Corpuscular Hemoglobin Concent 33 g/dL (31-37) Red Cell Distribution Width 15.6 % (11.5-14.5) Platelet Count 208 x10^3/uL (140-400) Neutrophils (%) (Auto) 74 % (31-73) Lymphocytes (%) (Auto) 15 % (24-48) Monocytes (%) (Auto) 11 % (0-9) Eosinophils (%) (Auto) 0 % (0-3) Basophils (%) (Auto) 0 % (0-3) Neutrophils # (Auto) 2.7 x10^3/uL (1.8-7.7) Lymphocytes # (Auto) 0.6 x10^3/uL (1.0-4.8) Monocytes # (Auto) 0.4 x10^3/uL (0.0-1.1) Eosinophils # (Auto) 0.0 x10^3/uL (0.0-0.7) Basophils # (Auto) 0.0 x10^3/uL (0.0-0.2) Sodium Level 154 mmol/L (136-145) Potassium Level 3.5 mmol/L (3.5-5.1) Chloride Level 115 mmol/L (98-107) Carbon Dioxide Level 30 mmol/L (21-32) Anion Gap 9 (6-14) Blood Urea Nitrogen 60 mg/dL (8-26) Creatinine 1.2 mg/dL (0.7-1.3) Estimated GFR (Cockcroft-Gault) 57.8 Glucose Level 268 mg/dL (70-99) Calcium Level 9.1 mg/dL (8.5-10.1) Test 05/12/20 05:49 05/12/20 07:17 05/12/20 12:32 Glucose (Fingerstick) 269 mg/dL (70-99) 229 mg/dL (70-99) 203 mg/dL (70-99) Medications Active Scripts Medications Dose Route/Sig Max Daily Dose Days Date Category Zyvox (Linezolid) 600 Mg Tablet 600 Mg PO BID 10 04/15/20 Rx Cipro (Ciprofloxacin Hcl) 250 Mg Tablet 500 Mg PO BID 10 04/15/20 Rx Ondansetron Odt (Ondansetron) 4 Mg Tab.rapdis 1 Tab PO PRN Q6-8HRS 03/20/20 Rx Lantus (Insulin Glargine,Hum.rec.anlog) 100 Unit/1 Ml Vial 10 Unit SQ QHS 30 01/02/20 Rx Isosorbide Mononitrate Er (Isosorbide Mononitrate) 30 Mg Tab.er.24h 30 Mg PO DAILY 10/18/19 Reported Carvedilol 25 Mg Tablet 12.5 Mg PO BIDWMEALS 09/05/19 Reported Proair Hfa Inhaler (Albuterol Sulfate) 8.5 Gm Hfa.aer.ad 2 Puff IH PRN Q4-6HRS PRN 21 09/05/19 Reported Aspirin 81 Mg Tab.chew 1 Tab PO DAILY 09/05/19 Reported Vitamin D2 (Ergocalciferol (Vitamin D2)) 50,000 Unit Capsule 1 Cap PO WEEKLY 28 09/05/19 Reported Lisinopril 40 Mg Tablet 20 Mg PO DAILY PRN 09/05/19 Reported Gabapentin 600 Mg Tablet 300 Mg PO QHS 09/05/19 Reported Emperatriz-Bid Caplet (Acidoph/L.bulg/Bif.b/S.thermop) 1 Each Tablet 1 Each PO TIDAC 03/23/17 Reported Atorvastatin Calcium 10 Mg Tablet 10 Mg PO QHS 09/16/16 Rx Midodrine Hcl 2.5 Mg Tablet 2.5 Mg PO [id number] 09/16/16 Rx Duloxetine Hcl 60 Mg Capsule.dr 60 Mg PO DAILY 09/12/16 Reported Impression . IMPRESSION: 1. Acute hypoxemic respiratory failure. 2. Elevated troponin, suspect, and non-ST segment elevation myocardial infarction. 3. Acute on chronic systolic heart failure. 4. Possible aspiration pneumonia. 5. Acute on chronic kidney disease. 6. Hypertension. 7. Diabetes. 8. Toxic metabolic encephalopathy. 9. Possible sepsis. 10. History of SARS-CoV-2 positive. 11. 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 12. History of Clostridium difficile. 13. SARS COVID positive/COVID-19 disease Plan . We will continue current support Requiring less oxygen supplementation change solumedrol to 40 q 8 hrs Oxygen titration Empiric antibiotic per ID Follow cardiology input Monitor blood sugars dvt prophylaxis discussed w SHONNA Marrero MD May 12, 2020 17:30
[2020-05-12] MEDS: INSULIN GLARGINE SYRINGE. SQ SCH (21:55)
[2020-05-13 03:12] VITALS: BP 155/77
[2020-05-13] MEDS: AMINO AC 3%/ELECTROLYTE/GLYCER 1,000 ML IV SCH ×3 (05:50→18:25)
[2020-05-13] MEDS: MEROPENEM 500 MG in IV NORMAL SALINE 50ML 50 ML IV SCH ×3 (05:57→20:57)
[2020-05-13] MEDS: methylPREDNISolone SOD SUCC PF 125 MG/2 ML VIAL. IV SCH ×3 (05:58→20:56)
[2020-05-13] MEDS: INSULIN LISPRO 300 UNITS/3 ML VIAL. SQ SCH ×4 (06:13→18:24)
[2020-05-13 07:00] VITALS: BP 164/85
[2020-05-13] MEDS ORDERED: INSULIN GLARGINE SYRINGE. SQ SCH (09:15)
--- NOTE | 2020-05-13 09:19 | PDOC ---
Provider Note Provider Note sleeping,n o temp- Na+ and glucose high re steroids, covid +- will increase lantus pending steroid reduction Justicifation of Admission Dx: Justifications for Admission: Justification of Admission Dx: Yes Sepsis: Infection AL: Acute NSTEMI RADHA WILL MD May 13, 2020 09:19
[2020-05-13] MEDS: ASPIRIN RECTAL 300 MG SUPP. PR SCH (09:30)
[2020-05-13] MEDS: FLUCONAZOLE 100MG/50ML PREMIX 50 ML IV SCH (09:30)
[2020-05-13] MEDS: LACTOBACILLUS RHAMNOSUS GG 1 CAPSULE. PO SCH ×2 (09:30→20:54)
[2020-05-13] MEDS: ENOXAPARIN 40 MG/0.4 ML SYRINGE. SQ SCH ×2 (09:31→20:55)
[2020-05-13] MEDS: VITS A & D/LANOLIN TOPICAL OINTMENT 42GM TUBE. TP SCH ×2 (10:13→20:55)
--- NOTE | 2020-05-13 12:49 | PDOC ---
Infectious Disease Note Subjective Subjective Nonverbal Satting > 95% on room air Marley bag (not tube) was changed No fevers PPN ROS ROS unobtainable Vital Sign Vital Signs Vital Signs Date Time Temp Pulse Resp B/P (MAP) Pulse Ox O2 Delivery O2 Flow Rate FiO2 05/13/20 11:02 97.7 17 97 97.7 05/13/20 07:58 Room Air 05/13/20 07:00 93 05/13/20 03:12 6.0 Physical Exam PHYSICAL EXAM GENERAL: Propped up in bed, alert, calm with mitts in place HEENT: Oral cavity, pharynx has poor dentition, dry. He has normal conjunctivae. NECK: Supple, without JVD. LUNGS: Improved aeration, nonlabored HEART: S1, S2. regular ABDOMEN: Soft, no guarding. GENITOURINARY: Marley is in place. EXTREMITIES: Right below-knee amputation without signs of complications, LLE without edema. Foot callous with iodine - NT NEUROLOGICAL: Alert, moved ext. Labs Lab Laboratory Tests Test 05/12/20 12:32 05/12/20 22:04 05/13/20 05:50 Glucose (Fingerstick) 203 mg/dL (70-99) 288 mg/dL (70-99) 373 mg/dL (70-99) Micro URINE CULTURE Final Final MORGANELLA MORGANII [facility] ANTIMICROBIAL SUSCEPTIBILITY Final Comment NEG KAUR 56 MORGANELLA MORGANII ANTIBIOTIC RESULT INTERPRETATION AMPICILLIN/SULBACTAM >16/8 R AMIKACIN <=16 S AMPICILLIN >16 R AMOXICILLIN/K CLAVULANATE >16/8 R AZTREONAM >16 R CEFTRIAXONE 32 R CEFTAZIDIME >16 R CEFOTAXIME >32 R CEFOXITIN <=8 S CIPROFLOXACIN >2 R CEFEPIME 8 S CEFUROXIME >16 R CEFTAZIDIME/AVIBACTAM <=4 S ERTAPENEM <=0.5 S NITROFURANTOIN >64 R* GENTAMICIN <=2 S LEVOFLOXACIN >4 R MEROPENEM <=1 S PIPERACILLIN/TAZOBACTAM 32 I TRIMETHOPRIM/SULFAMETHOXAZOLE >2/38 R TETRACYCLINE >8 R TOBRAMYCIN <=2 S Objective Assessment COVID + - 7/6 on steroids Leukopenia - ? viral - better Fever- ? COVID ? UTI vs med - improving CKD with AMANUEL - slight worse today Acute hypoxic resp failure improving, now on room air ? UTI - Morganella MDR and yeast CALB Elevated Troponin - ? type 2 NSTEMI Recent MRSA/Pseudomonas DM - not controlled H/o C-diff Plan Plan of Care Cont Meropenem 05/07 Fluconazole - no H/o arrhythmias for a few days 05/09 Defer Steroids to pulm off Daptomycin and Linezolid (for lung) with neg cults started 05/07 - 05/09 Marley not changed. ? difficulty. May need urology per nursing Repeat labs in am Maintain aspiration precautions Airborne and contact isolation for COVID and MDRO Better and states he wants to go home Attending Co-Sign Attending Co-Sign The patient was seen and interviewed as well as examined at the bedside. The chart was reviewed. The case was discussed. Agree with the plan of care. KEIKO FRANCISCO APRN May 13, 2020 12:48 TOYA MAI MD May 13, 2020 15:33
--- NOTE | 2020-05-13 12:51 | PDOC ---
PULMONARY PROGRESS NOTES Subjective on ra, alert, doesnt follow my commands, appear comfortable Vitals Vital Signs Date Time Temp Pulse Resp B/P (MAP) Pulse Ox O2 Delivery O2 Flow Rate FiO2 05/13/20 11:02 97.7 17 97 97.7 05/13/20 07:58 Room Air 05/13/20 07:00 93 05/13/20 03:12 6.0 General: Alert Lungs: Crackles Cardiovascular: S1, S2 Abdomen: Soft Extremities: Other (Edema) Skin: Warm Labs Laboratory Tests Test 05/11/20 17:58 05/11/20 21:38 05/11/20 23:58 05/12/20 04:00 Glucose (Fingerstick) 202 mg/dL (70-99) 237 mg/dL (70-99) 286 mg/dL (70-99) White Blood Count 3.7 x10^3/uL (4.0-11.0) Red Blood Count 4.30 x10^6/uL (4.30-5.70) Hemoglobin 11.9 g/dL (13.0-17.5) Hematocrit 36.0 % (39.0-53.0) Mean Corpuscular Volume 84 fL (79-100) Mean Corpuscular Hemoglobin 28 pg (25-35) Mean Corpuscular Hemoglobin Concent 33 g/dL (31-37) Red Cell Distribution Width 15.6 % (11.5-14.5) Platelet Count 208 x10^3/uL (140-400) Neutrophils (%) (Auto) 74 % (31-73) Lymphocytes (%) (Auto) 15 % (24-48) Monocytes (%) (Auto) 11 % (0-9) Eosinophils (%) (Auto) 0 % (0-3) Basophils (%) (Auto) 0 % (0-3) Neutrophils # (Auto) 2.7 x10^3/uL (1.8-7.7) Lymphocytes # (Auto) 0.6 x10^3/uL (1.0-4.8) Monocytes # (Auto) 0.4 x10^3/uL (0.0-1.1) Eosinophils # (Auto) 0.0 x10^3/uL (0.0-0.7) Basophils # (Auto) 0.0 x10^3/uL (0.0-0.2) Sodium Level 154 mmol/L (136-145) Potassium Level 3.5 mmol/L (3.5-5.1) Chloride Level 115 mmol/L (98-107) Carbon Dioxide Level 30 mmol/L (21-32) Anion Gap 9 (6-14) Blood Urea Nitrogen 60 mg/dL (8-26) Creatinine 1.2 mg/dL (0.7-1.3) Estimated GFR (Cockcroft-Gault) 57.8 Glucose Level 268 mg/dL (70-99) Calcium Level 9.1 mg/dL (8.5-10.1) Test 05/12/20 05:49 05/12/20 07:17 05/12/20 12:32 05/12/20 22:04 Glucose (Fingerstick) 269 mg/dL (70-99) 229 mg/dL (70-99) 203 mg/dL (70-99) 288 mg/dL (70-99) Test 05/13/20 05:50 Glucose (Fingerstick) 373 mg/dL (70-99) Laboratory Tests Test 05/12/20 22:04 05/13/20 05:50 Glucose (Fingerstick) 288 mg/dL (70-99) 373 mg/dL (70-99) Medications Active Scripts Medications Dose Route/Sig Max Daily Dose Days Date Category Zyvox (Linezolid) 600 Mg Tablet 600 Mg PO BID 10 04/15/20 Rx Cipro (Ciprofloxacin Hcl) 250 Mg Tablet 500 Mg PO BID 10 04/15/20 Rx Ondansetron Odt (Ondansetron) 4 Mg Tab.rapdis 1 Tab PO PRN Q6-8HRS 03/20/20 Rx Lantus (Insulin Glargine,Hum.rec.anlog) 100 Unit/1 Ml Vial 10 Unit SQ QHS 30 01/02/20 Rx Isosorbide Mononitrate Er (Isosorbide Mononitrate) 30 Mg Tab.er.24h 30 Mg PO DAILY 10/18/19 Reported Carvedilol 25 Mg Tablet 12.5 Mg PO BIDWMEALS 09/05/19 Reported Proair Hfa Inhaler (Albuterol Sulfate) 8.5 Gm Hfa.aer.ad 2 Puff IH PRN Q4-6HRS PRN 21 09/05/19 Reported Aspirin 81 Mg Tab.chew 1 Tab PO DAILY 09/05/19 Reported Vitamin D2 (Ergocalciferol (Vitamin D2)) 50,000 Unit Capsule 1 Cap PO WEEKLY 28 09/05/19 Reported Lisinopril 40 Mg Tablet 20 Mg PO DAILY PRN 09/05/19 Reported Gabapentin 600 Mg Tablet 300 Mg PO QHS 09/05/19 Reported Emperatriz-Bid Caplet (Acidoph/L.bulg/Bif.b/S.thermop) 1 Each Tablet 1 Each PO TIDAC 03/23/17 Reported Atorvastatin Calcium 10 Mg Tablet 10 Mg PO QHS 09/16/16 Rx Midodrine Hcl 2.5 Mg Tablet 2.5 Mg PO [id number] 09/16/16 Rx Duloxetine Hcl 60 Mg Capsule.dr 60 Mg PO DAILY 09/12/16 Reported Impression . IMPRESSION: 1. Acute hypoxemic respiratory failure. 2. Elevated troponin, suspect, and non-ST segment elevation myocardial infarction. 3. Acute on chronic systolic heart failure. 4. Possible aspiration pneumonia. 5. Acute on chronic kidney disease. 6. Hypertension. 7. Diabetes. 8. Toxic metabolic encephalopathy. 9. Possible sepsis. 10. History of SARS-CoV-2 positive. 11. 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 12. History of Clostridium difficile. 13. SARS COVID positive/COVID-19 disease Plan . We will continue current support change solumedrol to 40 q 8 hrs Oxygen titration Empiric antibiotic per ID Follow cardiology input Monitor blood sugars dvt prophylaxis discussed w SHONNA Marrero MD May 13, 2020 12:51
[2020-05-13 14:00] VITALS: BP 191/99
[2020-05-13] MEDS: hydrALAZINE 20 MG/ML VIAL. IVP PRN (14:16)
[2020-05-13 14:40] VITALS: BP 155/77
[2020-05-13 19:00] VITALS: BP 145/75
[2020-05-13] MEDS: INSULIN GLARGINE SYRINGE. SQ SCH (21:16)
[2020-05-13 22:48] VITALS: BP 147/75
[2020-05-14 03:00] VITALS: BP 169/113
[2020-05-14 05:18] LABS: BASO % 0 % (0-3); EOS % 0 % (0-3); HEMATOCRIT 38.3 % (39.0-53.0); HEMOGLOBIN 12.6 g/dL (13.0-17.5); LYMPH # 0.5 x10^3/uL (1.0-4.8); LYMPH % 12 % (24-48); MEAN CORPUSCULAR HEMOGLOBIN 28 pg (25-35); MEAN CORPUSCULAR HGB CONC 33 g/dL (31-37); MEAN CORPUSCULAR VOLUME 85 fL (79-100); MONO # 0.3 x10^3/uL (0.0-1.1); MONO % 8 % (0-9); NEUT # 3.3 x10^3/uL (1.8-7.7); NEUT % 80 % (31-73); PLATELET COUNT 202 x10^3/uL (140-400); RED BLOOD COUNT 4.53 x10^6/uL (4.30-5.70); RED CELL DISTRIBUTION WIDTH 15.6 % (11.5-14.5); WHITE BLOOD COUNT 4.1 x10^3/uL (4.0-11.0)
[2020-05-14] MEDS: methylPREDNISolone SOD SUCC PF 125 MG/2 ML VIAL. IV SCH ×3 (05:41→23:06)
[2020-05-14] MEDS: MEROPENEM 500 MG in IV NORMAL SALINE 50ML 50 ML IV SCH ×3 (05:41→20:42)
[2020-05-14 05:50] LABS: CALCIUM 9.1 mg/dL (8.5-10.1); CREATININE 1.1 mg/dL (0.7-1.3); GFR 63.9; POTASSIUM 3.3 mmol/L (3.5-5.1)
[2020-05-14] MEDS: INSULIN LISPRO 300 UNITS/3 ML VIAL. SQ SCH ×4 (06:00→18:00)
[2020-05-14 07:22] VITALS: BP 176/99
--- NOTE | 2020-05-14 07:52 | PDOC ---
GENERAL General: vss and afebrile. mentation same. Sodium 161 and BUN 55 cw dehydration. will ask renal for help with same. exam stable. sugars decent. continue supportive care. VITAL SIGNS/I&O Vital Signs/I&O: Vital Signs Date Time Temp Pulse Resp B/P (MAP) Pulse Ox O2 Delivery O2 Flow Rate FiO2 05/14/20 03:00 97.8 82 18 169/113 (131) 94 Room Air 97.8 I & O 05/13/20 05/13/20 05/14/20 15:00 23:00 07:00 Output Total 1300 ml 275 ml Balance -1300 ml -275 ml ALLERGIES Allergies: Allergies Coded Allergies Type Severity Reaction Last Updated Verified Influenza Virus Vaccines Allergy Intermediate 05/09/17 Yes I S O L A T I O N *CONTACT* Allergy Unknown 05/12/17 Yes MEDS Medications: Current Medications Medications (Trade) Dose Ordered Sig/Chay Route PRN Reason Start Time Stop Time Status Last Admin Dose Admin Insulin Glargine (Lantus Syringe) 50 unit QHS SQ 05/13/20 21:00 05/13/20 21:16 LAB Lab: Laboratory Tests Test 05/13/20 13:53 05/13/20 18:06 05/13/20 23:57 05/14/20 04:08 Glucose (Fingerstick) 326 mg/dL (70-99) H 292 mg/dL (70-99) H 166 mg/dL (70-99) H White Blood Count 4.1 x10^3/uL (4.0-11.0) Red Blood Count 4.53 x10^6/uL (4.30-5.70) Hemoglobin 12.6 g/dL (13.0-17.5) L Hematocrit 38.3 % (39.0-53.0) L Mean Corpuscular Volume 85 fL (79-100) Mean Corpuscular Hemoglobin 28 pg (25-35) Mean Corpuscular Hemoglobin Concent 33 g/dL (31-37) Red Cell Distribution Width 15.6 % (11.5-14.5) H Platelet Count 202 x10^3/uL (140-400) Neutrophils (%) (Auto) 80 % (31-73) H Lymphocytes (%) (Auto) 12 % (24-48) L Monocytes (%) (Auto) 8 % (0-9) Eosinophils (%) (Auto) 0 % (0-3) Basophils (%) (Auto) 0 % (0-3) Neutrophils # (Auto) 3.3 x10^3/uL (1.8-7.7) Lymphocytes # (Auto) 0.5 x10^3/uL (1.0-4.8) L Monocytes # (Auto) 0.3 x10^3/uL (0.0-1.1) Eosinophils # (Auto) 0.0 x10^3/uL (0.0-0.7) Basophils # (Auto) 0.0 x10^3/uL (0.0-0.2) Sodium Level 161 mmol/L (136-145) *H Potassium Level 3.3 mmol/L (3.5-5.1) L Chloride Level 120 mmol/L (98-107) H Carbon Dioxide Level 28 mmol/L (21-32) Anion Gap 13 (6-14) Blood Urea Nitrogen 55 mg/dL (8-26) H Creatinine 1.1 mg/dL (0.7-1.3) Estimated GFR (Cockcroft-Gault) 63.9 Glucose Level 132 mg/dL (70-99) H Calcium Level 9.1 mg/dL (8.5-10.1) Test 05/14/20 05:48 Glucose (Fingerstick) 112 mg/dL (70-99) H Laboratory Tests 05/14/20 04:08 Laboratory Tests 05/14/20 04:08 Justicifation of Admission Dx: Justifications for Admission: Justification of Admission Dx: Yes Sepsis: Infection [place]: Acute NSTEMI Nutrition Consultation Dietary Evaluation: Recommendations by RD: Dietary education by RD, Increase Calorie Intake, Protein supplementation, PPN/TPN Comments: Continue w/PPN for short-term non-oral nutrition needs If continued aggressive care desired and if unable to advance diet, would recommend dobhoff for TFs to best meet nutrition needs, rec TFs per following: Glucerna 1.2@goal rate 50 ml/hr w/125 ml water flushes q4 hrs w/Pepe BID and liquid MVI (wound healing) Expected Outcomes/Goals: Diet advancement - not met, goal ongoing Interpretation of weight loss: >5% in 1 month Malnutrition Findings: Food and Nutrition Intake (Sev: <50% est energy req 5days Weight Status: Appropriate LUISITO RUSSELL MD May 14, 2020 07:52
--- NOTE | 2020-05-14 08:34 | PDOC ---
PULMONARY PROGRESS NOTES Subjective Patient on oxygen supplementation appears to be comfortable Vitals Vital Signs Date Time Temp Pulse Resp B/P (MAP) Pulse Ox O2 Delivery O2 Flow Rate FiO2 05/14/20 07:22 97.2 92 18 176/99 (124) 94 Room Air 97.2 General: Alert Lungs: Crackles Cardiovascular: S1, S2 Abdomen: Soft Extremities: Other (Edema) Skin: Warm Labs Laboratory Tests Test 05/12/20 12:32 05/12/20 22:04 05/13/20 05:50 05/13/20 13:53 Glucose (Fingerstick) 203 mg/dL (70-99) 288 mg/dL (70-99) 373 mg/dL (70-99) 326 mg/dL (70-99) Test 05/13/20 18:06 05/13/20 23:57 05/14/20 04:08 05/14/20 05:48 Glucose (Fingerstick) 292 mg/dL (70-99) 166 mg/dL (70-99) 112 mg/dL (70-99) White Blood Count 4.1 x10^3/uL (4.0-11.0) Red Blood Count 4.53 x10^6/uL (4.30-5.70) Hemoglobin 12.6 g/dL (13.0-17.5) Hematocrit 38.3 % (39.0-53.0) Mean Corpuscular Volume 85 fL (79-100) Mean Corpuscular Hemoglobin 28 pg (25-35) Mean Corpuscular Hemoglobin Concent 33 g/dL (31-37) Red Cell Distribution Width 15.6 % (11.5-14.5) Platelet Count 202 x10^3/uL (140-400) Neutrophils (%) (Auto) 80 % (31-73) Lymphocytes (%) (Auto) 12 % (24-48) Monocytes (%) (Auto) 8 % (0-9) Eosinophils (%) (Auto) 0 % (0-3) Basophils (%) (Auto) 0 % (0-3) Neutrophils # (Auto) 3.3 x10^3/uL (1.8-7.7) Lymphocytes # (Auto) 0.5 x10^3/uL (1.0-4.8) Monocytes # (Auto) 0.3 x10^3/uL (0.0-1.1) Eosinophils # (Auto) 0.0 x10^3/uL (0.0-0.7) Basophils # (Auto) 0.0 x10^3/uL (0.0-0.2) Sodium Level 161 mmol/L (136-145) Potassium Level 3.3 mmol/L (3.5-5.1) Chloride Level 120 mmol/L (98-107) Carbon Dioxide Level 28 mmol/L (21-32) Anion Gap 13 (6-14) Blood Urea Nitrogen 55 mg/dL (8-26) Creatinine 1.1 mg/dL (0.7-1.3) Estimated GFR (Cockcroft-Gault) 63.9 Glucose Level 132 mg/dL (70-99) Calcium Level 9.1 mg/dL (8.5-10.1) Laboratory Tests Test 05/13/20 13:53 05/13/20 18:06 05/13/20 23:57 05/14/20 04:08 Glucose (Fingerstick) 326 mg/dL (70-99) 292 mg/dL (70-99) 166 mg/dL (70-99) White Blood Count 4.1 x10^3/uL (4.0-11.0) Red Blood Count 4.53 x10^6/uL (4.30-5.70) Hemoglobin 12.6 g/dL (13.0-17.5) Hematocrit 38.3 % (39.0-53.0) Mean Corpuscular Volume 85 fL (79-100) Mean Corpuscular Hemoglobin 28 pg (25-35) Mean Corpuscular Hemoglobin Concent 33 g/dL (31-37) Red Cell Distribution Width 15.6 % (11.5-14.5) Platelet Count 202 x10^3/uL (140-400) Neutrophils (%) (Auto) 80 % (31-73) Lymphocytes (%) (Auto) 12 % (24-48) Monocytes (%) (Auto) 8 % (0-9) Eosinophils (%) (Auto) 0 % (0-3) Basophils (%) (Auto) 0 % (0-3) Neutrophils # (Auto) 3.3 x10^3/uL (1.8-7.7) Lymphocytes # (Auto) 0.5 x10^3/uL (1.0-4.8) Monocytes # (Auto) 0.3 x10^3/uL (0.0-1.1) Eosinophils # (Auto) 0.0 x10^3/uL (0.0-0.7) Basophils # (Auto) 0.0 x10^3/uL (0.0-0.2) Sodium Level 161 mmol/L (136-145) Potassium Level 3.3 mmol/L (3.5-5.1) Chloride Level 120 mmol/L (98-107) Carbon Dioxide Level 28 mmol/L (21-32) Anion Gap 13 (6-14) Blood Urea Nitrogen 55 mg/dL (8-26) Creatinine 1.1 mg/dL (0.7-1.3) Estimated GFR (Cockcroft-Gault) 63.9 Glucose Level 132 mg/dL (70-99) Calcium Level 9.1 mg/dL (8.5-10.1) Test 05/14/20 05:48 Glucose (Fingerstick) 112 mg/dL (70-99) Medications Active Scripts Medications Dose Route/Sig Max Daily Dose Days Date Category Zyvox (Linezolid) 600 Mg Tablet 600 Mg PO BID 10 04/15/20 Rx Cipro (Ciprofloxacin Hcl) 250 Mg Tablet 500 Mg PO BID 10 04/15/20 Rx Ondansetron Odt (Ondansetron) 4 Mg Tab.rapdis 1 Tab PO PRN Q6-8HRS 03/20/20 Rx Lantus (Insulin Glargine,Hum.rec.anlog) 100 Unit/1 Ml Vial 10 Unit SQ QHS 30 01/02/20 Rx Isosorbide Mononitrate Er (Isosorbide Mononitrate) 30 Mg Tab.er.24h 30 Mg PO DAILY 10/18/19 Reported Carvedilol 25 Mg Tablet 12.5 Mg PO BIDWMEALS 09/05/19 Reported Proair Hfa Inhaler (Albuterol Sulfate) 8.5 Gm Hfa.aer.ad 2 Puff IH PRN Q4-6HRS PRN 21 09/05/19 Reported Aspirin 81 Mg Tab.chew 1 Tab PO DAILY 09/05/19 Reported Vitamin D2 (Ergocalciferol (Vitamin D2)) 50,000 Unit Capsule 1 Cap PO WEEKLY 28 09/05/19 Reported Lisinopril 40 Mg Tablet 20 Mg PO DAILY PRN 09/05/19 Reported Gabapentin 600 Mg Tablet 300 Mg PO QHS 09/05/19 Reported Emperatriz-Bid Caplet (Acidoph/L.bulg/Bif.b/S.thermop) 1 Each Tablet 1 Each PO TIDAC 03/23/17 Reported Atorvastatin Calcium 10 Mg Tablet 10 Mg PO QHS 09/16/16 Rx Midodrine Hcl 2.5 Mg Tablet 2.5 Mg PO [id number] 09/16/16 Rx Duloxetine Hcl 60 Mg Capsule.dr 60 Mg PO DAILY 09/12/16 Reported Impression . IMPRESSION: 1. Acute hypoxemic respiratory failure. 2. Elevated troponin, suspect, and non-ST segment elevation myocardial infar ction. 3. Acute on chronic systolic heart failure. 4. Possible aspiration pneumonia. 5. Acute on chronic kidney disease. 6. Hypertension. 7. Diabetes. 8. Toxic metabolic encephalopathy. 9. Possible sepsis. 10. History of SARS-CoV-2 positive. 11. 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 12. History of Clostridium difficile. 13. SARS COVID positive/COVID-19 disease 13 electrolyte abnormalities Plan . Electrolytes abnormality being addressed potassium low sodium high Nebulized treatment Decrease Solu-Medrol Oxygen titration Empiric antibiotic per ID Follow cardiology input Monitor blood sugars dvt prophylaxis FAMILIA DUARTE MD May 14, 2020 08:34
[2020-05-14] MEDS: AMINO AC 3%/ELECTROLYTE/GLYCER 1,000 ML IV SCH (08:59)
[2020-05-14] MEDS: LACTOBACILLUS RHAMNOSUS GG 1 CAPSULE. PO SCH ×2 (09:00→20:41)
[2020-05-14] MEDS: ENOXAPARIN 40 MG/0.4 ML SYRINGE. SQ SCH ×2 (09:00→20:42)
[2020-05-14] MEDS: ASPIRIN RECTAL 300 MG SUPP. PR SCH (09:00)
[2020-05-14] MEDS: VITS A & D/LANOLIN TOPICAL OINTMENT 42GM TUBE. TP SCH ×2 (09:00→20:42)
[2020-05-14] MEDS: FLUCONAZOLE 100MG/50ML PREMIX 50 ML IV SCH (09:01)
[2020-05-14] MEDS ORDERED: POTASSIUM CHLORIDE 20MEQ 100 ML IV ONE (11:00)
[2020-05-14 11:19] VITALS: BP 167/101
[2020-05-14] MEDS: hydrALAZINE 20 MG/ML VIAL. IVP PRN (11:34)
[2020-05-14] MEDS: IV DEXTROSE 5% 1,000 ML IV SCH ×2 (11:35→20:44)
--- NOTE | 2020-05-14 11:59 | PDOC ---
Infectious Disease Note Subjective Subjective Nonverbal Satting > 95% on room air Marley bag (not tube) was changed No fevers PPN Vital Sign Vital Signs Vital Signs Date Time Temp Pulse Resp B/P (MAP) Pulse Ox O2 Delivery O2 Flow Rate FiO2 05/14/20 11:34 88 05/14/20 11:19 96.5 18 167/101 (123) 94 Room Air 96.5 Physical Exam PHYSICAL EXAM GENERAL: Propped up in bed, alert, calm with mitts in place HEENT: Oral cavity, pharynx has poor dentition, dry. He has normal conjunctiv ae. NECK: Supple, without JVD. LUNGS: Improved aeration, nonlabored HEART: S1, S2. regular ABDOMEN: Soft, no guarding. GENITOURINARY: Marley is in place. EXTREMITIES: Right below-knee amputation without signs of complications, LLE without edema. Foot callous with iodine - NT NEUROLOGICAL: Alert, moved ext. Labs Lab Laboratory Tests Test 05/13/20 13:53 05/13/20 18:06 05/13/20 23:57 05/14/20 04:08 Glucose (Fingerstick) 326 mg/dL (70-99) 292 mg/dL (70-99) 166 mg/dL (70-99) White Blood Count 4.1 x10^3/uL (4.0-11.0) Red Blood Count 4.53 x10^6/uL (4.30-5.70) Hemoglobin 12.6 g/dL (13.0-17.5) Hematocrit 38.3 % (39.0-53.0) Mean Corpuscular Volume 85 fL (79-100) Mean Corpuscular Hemoglobin 28 pg (25-35) Mean Corpuscular Hemoglobin Concent 33 g/dL (31-37) Red Cell Distribution Width 15.6 % (11.5-14.5) Platelet Count 202 x10^3/uL (140-400) Neutrophils (%) (Auto) 80 % (31-73) Lymphocytes (%) (Auto) 12 % (24-48) Monocytes (%) (Auto) 8 % (0-9) Eosinophils (%) (Auto) 0 % (0-3) Basophils (%) (Auto) 0 % (0-3) Neutrophils # (Auto) 3.3 x10^3/uL (1.8-7.7) Lymphocytes # (Auto) 0.5 x10^3/uL (1.0-4.8) Monocytes # (Auto) 0.3 x10^3/uL (0.0-1.1) Eosinophils # (Auto) 0.0 x10^3/uL (0.0-0.7) Basophils # (Auto) 0.0 x10^3/uL (0.0-0.2) Sodium Level 161 mmol/L (136-145) Potassium Level 3.3 mmol/L (3.5-5.1) Chloride Level 120 mmol/L (98-107) Carbon Dioxide Level 28 mmol/L (21-32) Anion Gap 13 (6-14) Blood Urea Nitrogen 55 mg/dL (8-26) Creatinine 1.1 mg/dL (0.7-1.3) Estimated GFR (Cockcroft-Gault) 63.9 Glucose Level 132 mg/dL (70-99) Calcium Level 9.1 mg/dL (8.5-10.1) Test 05/14/20 05:48 Glucose (Fingerstick) 112 mg/dL (70-99) Micro Microbiology 05/06/20 Urine Culture - Final, Complete 05/06/20 Antimicrobic Susceptibility - Final, Complete 05/06/20 Blood Culture - Final, Complete NO GROWTH AFTER 5 DAYS Objective Assessment COVID + - 05/07 on steroids Leukopenia - ? viral - better Fever- ? COVID ? UTI vs med - improving CKD with AMANUEL - slight worse today Acute hypoxic resp failure improving, now on room air ? UTI - Morganella MDR and yeast CALB Elevated Troponin - ? type 2 NSTEMI Recent MRSA/Pseudomonas DM - not controlled H/o C-diff Plan Plan of Care Cont Meropenem 05/07 Fluconazole - no H/o arrhythmias for a few days 05/09 Defer Steroids to pulm off Daptomycin and Linezolid (for lung) with neg cults started 05/07 - 05/09 Marley not changed. ? difficulty. May need urology per nursing Repeat labs in am Maintain aspiration precautions Airborne and contact isolation for COVID and MDRO Better and states he wants to go home ARLET ARANDA MD May 14, 2020 11:59
--- NOTE | 2020-05-14 12:26 | PDOC ---
CARDIO Progress Notes Date and Time Date of Service 05/14/20 Time of Evaluation 1215 Subjective Subjective: No Chest Pain Vitals Vitals Vital Signs Date Time Temp Pulse Resp B/P (MAP) Pulse Ox O2 Delivery O2 Flow Rate FiO2 05/14/20 11:34 88 05/14/20 11:19 96.5 18 167/101 (123) 94 Room Air 96.5 Weight Weight [ ] Input and Output Intake and Output Intake and Output 05/14/20 07:00 Output Total 1575 ml Balance -1575 ml Output Urine Total 1575 ml Laboratory Labs Laboratory Tests Test 05/13/20 13:53 05/13/20 18:06 05/13/20 23:57 05/14/20 04:08 Glucose (Fingerstick) 326 mg/dL (70-99) 292 mg/dL (70-99) 166 mg/dL (70-99) White Blood Count 4.1 x10^3/uL (4.0-11.0) Red Blood Count 4.53 x10^6/uL (4.30-5.70) Hemoglobin 12.6 g/dL (13.0-17.5) Hematocrit 38.3 % (39.0-53.0) Mean Corpuscular Volume 85 fL (79-100) Mean Corpuscular Hemoglobin 28 pg (25-35) Mean Corpuscular Hemoglobin Concent 33 g/dL (31-37) Red Cell Distribution Width 15.6 % (11.5-14.5) Platelet Count 202 x10^3/uL (140-400) Neutrophils (%) (Auto) 80 % (31-73) Lymphocytes (%) (Auto) 12 % (24-48) Monocytes (%) (Auto) 8 % (0-9) Eosinophils (%) (Auto) 0 % (0-3) Basophils (%) (Auto) 0 % (0-3) Neutrophils # (Auto) 3.3 x10^3/uL (1.8-7.7) Lymphocytes # (Auto) 0.5 x10^3/uL (1.0-4.8) Monocytes # (Auto) 0.3 x10^3/uL (0.0-1.1) Eosinophils # (Auto) 0.0 x10^3/uL (0.0-0.7) Basophils # (Auto) 0.0 x10^3/uL (0.0-0.2) Sodium Level 161 mmol/L (136-145) Potassium Level 3.3 mmol/L (3.5-5.1) Chloride Level 120 mmol/L (98-107) Carbon Dioxide Level 28 mmol/L (21-32) Anion Gap 13 (6-14) Blood Urea Nitrogen 55 mg/dL (8-26) Creatinine 1.1 mg/dL (0.7-1.3) Estimated GFR (Cockcroft-Gault) 63.9 Glucose Level 132 mg/dL (70-99) Calcium Level 9.1 mg/dL (8.5-10.1) Test 05/14/20 05:48 Glucose (Fingerstick) 112 mg/dL (70-99) Microbiology Micro Microbiology 05/06/20 Urine Culture - Final, Complete 05/06/20 Antimicrobic Susceptibility - Final, Complete 05/06/20 Blood Culture - Final, Complete NO GROWTH AFTER 5 DAYS Physical Exam HEENT: Neck Supple W Full Motion Chest: Symmetric LUNGS: Other (CXR reviwed) Heart: S1S2, RRR (SR) Neurology: alert Assessment Assessment 1. Acute respiratory failure secondary to COVID PNA. Fevers. Improving. maintaining sats on RA 2. Acute on chronic systolic CHF; Echo 12/22 with preserved LV systolic function 3. NSTEMI; highest trop 0.5. Most probably type II, demand ischemia with multiple culprits noted. LVEF 50-55% 4. AMANUEL on CKD; resolved 5. Hypertension; controlled 6. Metabolic encephalopathy; improved 7. CAD; details unknown 8. Diabetes, II; uncontrolled. as per IM 9. PAD s/p right BKA 10. UTI 11. Hypernatremia; PPN discontinued. Recommendations ASA therapy Antibiotics, steroids Hydralazine PRN Follow renal recs Supportive care Justicifation of Admission Dx: Justifications for Admission: Justification of Admission Dx: Yes Sepsis: Infection [place]: Acute NSTEMI JOBY JAMIL APRN May 14, 2020 12:26
--- NOTE | 2020-05-14 13:39 | PDOC2 ---
CONSULT Date of Consult Date of Consult DATE: 05/14/20 TIME: : Reason for Consult Reason for Consult: Hypernatremia Source Source: Chart review History of Present Illness Reason for Visit: Pt is a 84-year-old gentleman with a history of right BKA, diabetes, dementia, chronic indwelling Marley and most recently had a wound on the bottom of his left foot. He was treated with ciprofloxacin towards the beginning of April. He was brought from the [facility] secondary to shortness of air, reportedly tested negative for COVID on 04/30/2020. He has been at [facility] since 05/07 - creatinine was 1.9, glucose was 460. chest x-ray on arrival showed no acute cardiopulmonary process. Has been afebrile, but he did drop his pressures into the 80s/40s and on 4 liters shortly after arriving, Flow rate went to 20 on the Vapotherm. Currently on RA He has chronic indwelling Marley Past Medical History Cardiovascular: CAD, CHF, HTN, Other (PAD s/p right BKA ) Pulmonary: No pertinent hx CENTRAL NERVOUS SYSTEM: Dementia GI: Other Hepatobiliary: No pertinent hx Psych: Anxiety, Depression Musculoskeletal: Osteoarthritis Rheumatologic: Other Infectious disease: Other Renal/: Chronic renal insuff, UTI, Benign prostatic enlarg. Endocrine: Diabetes Past Surgical History Past Surgical History: Other (right BKA) Family History Family History: Diabetes Social History ALCOHOL: none Drugs: None Lives: [facility] Current Problem List Problem List Problems Medical Problems: (1) NSTEMI, initial episode of care Status: Acute (2) UTI (urinary tract infection) Status: Acute Current Medications Current Medications Current Medications Sodium Chloride 1,000 ml @ 1,000 mls/hr 1X ONCE IV Last administered on 05/06/20at 21:04; Start 05/06/20 at 20:30; Stop 05/06/20 at 21:29; Status DC Ceftriaxone Sodium (Rocephin) 1 gm 1X ONCE IVP Last administered on 05/06/20at 21:03; Start 05/06/20 at 20:30; Stop 05/06/20 at 20:32; Status DC Aspirin (Aspirin Chewable) 324 mg 1X ONCE PO Last administered on 05/06/20at 21:02; Start 05/06/20 at 21:00; Stop 05/06/20 at 21:01; Status DC Insulin Human Regular (HumuLIN R VIAL) 10 unit 1X ONCE SQ Last administered on 05/06/20at 21:58; Start 05/06/20 at 22:00; Stop 05/06/20 at 22:01; Status DC Furosemide (Lasix) 20 mg 1X ONCE IVP Last administered on 05/07/20at 03:30; Start 05/07/20 at 03:30; Stop 05/07/20 at 03:31; Status DC Furosemide (Lasix) 40 mg 1X ONCE IVP Last administered on 05/07/20at 11:15; Start 05/07/20 at 11:15; Stop 05/07/20 at 11:16; Status DC Sterile Water (WATER for RESP) 1,000 ml CONT PRN INH VIA VAPOTHERM DEVICE Last administered on 05/07/20 21:30; Start 05/07/20 at 12:15 Aspirin (Aspirin Rectal Supp) 300 mg DAILY GA Last administered on 05/14/20at 09:00; Start 05/08/20 at 09:00 Meropenem 500 mg/ Sodium Chloride 50 ml @ 100 mls/hr Q6HRS IV Last administe red on 05/08/20at 05:21; Start 05/07/20 at 18:00; Stop 05/08/20 at 09:41; Status DC Daptomycin 380 mg/ Sodium Chloride 50 ml @ 100 mls/hr Q48H IV Last administered on 05/07/20at 16:00; Start 05/07/20 at 16:00; Stop 05/09/20 at 07:56; Status DC Linezolid/Dextrose 300 ml @ 300 mls/hr Q12HR IV Last administered on 05/08/20at 21:29; Start 05/07/20 at 17:00; Stop 05/09/20 at 07:56; Status DC Vitamin A/Vitamin D (Vitamin A & D Ointment) 1 kimberly BID TP Last administered on 05/14/20at 09:00; Start 05/07/20 at 21:00 Insulin Glargine (Lantus Syringe) 10 unit QHS SQ Last administered on 05/10/20at 22:47; Start 05/07/20 at 21:00; Stop 05/11/20 at 07:37; Status DC Dextrose (Dextrose 50%-Water Syringe) 12.5 gm PRN Q15MIN PRN IV SEE COMMENTS; Start 05/07/20 at 19:45; Status Cancel Insulin Human Lispro (HumaLOG) 10 units 1X ONCE SQ Last administered on 05/07/20at 20:20; Start 05/07/20 at 20:00; Stop 05/07/20 at 20:01; Status DC Meropenem 500 mg/ Sodium Chloride 50 ml @ 100 mls/hr Q12HR IV Last administered on 05/10/20at 12:30; Start 05/08/20 at 21:00; Stop 05/10/20 at 14:17; Status DC Lactobacillus Rhamnosus (Culturelle) 1 cap BID PO Last administered on 05/13at 09:30; Start 05/08/20 at 21:00 Sodium Chloride 1,000 ml @ 75 mls/hr [id number] IV Last administered on 05/08/20at 21:51; Start 05/08/20 at 11:45; Stop 05/09/20 at 08:21; Status DC Insulin Human Lispro (HumaLOG) 0-9 UNITS Q6HRS SQ Last administered on 05/02 12/22at 18:24; Start 05/08/20 at 12:00 Dextrose (Dextrose 50%-Water Syringe) 12.5 gm PRN Q15MIN PRN IV SEE COMMENTS; Start 05/08/20 at 11:45 Insulin Human Lispro (HumaLOG) 10 units Q6HRS PRN SQ glucose>300 Last administered on 05/11/20at 12:09; Start 05/08/20 at 12:30 Acetaminophen (Tylenol Supp) 650 mg 1X ONCE GA Last administered on 05/09/20at 06:15; Start 05/09/20 at 05:00; Stop 05/09/20 at 05:01; Status DC Fluconazole/ Sodium Chloride 50 ml @ 100 mls/hr Q24H IV Last administered on 05/14/20at 09:01; Start 05/09/20 at 08:00 Amino Acids/ Glycerin/ Electrolytes 1,000 ml @ 75 mls/hr [id number] IV Last administered on 05/14/20at 08:59; Start 05/09/20 at 08:30; Stop 05/14/20 at 10:55; Status DC Methylprednisolone Sodium Succinate (SOLU-Medrol 125MG VIAL) 80 mg Q8HRS IV Last administered on 05/14/20at 05:41; Start 05/09/20 at 14:00 Hydralazine HCl (Apresoline Inj) 10 mg PRN Q4HRS PRN IVP ELEVATED BP, SEE COMMENTS Last administered on 05/14/20at 11:34; Start 05/09/20 at 17:00 Meropenem 500 mg/ Sodium Chloride 50 ml @ 100 mls/hr Q8HRS IV Last administered on 05/14/20at 05:41; Start 05/10/20 at 21:00 Insulin Glargine (Lantus Syringe) 30 unit QHS SQ Last administered on 05/12/20at 21:55; Start 05/11/20 at 08:00; Stop 05/13/20 at 09:18; Status DC Enoxaparin Sodium (Lovenox 40mg Syringe) 40 mg BID SQ Last administered on 05/14/20at 09:00; Start 05/11/20 at 15:15 Insulin Glargine (Lantus Syringe) 50 unit QHS SQ ; Start 05/13/20 at 09:15; Status Cancel Insulin Glargine (Lantus Syringe) 50 unit QHS SQ Last administered on 05/13/20at 21:16; Start 05/13/20 at 21:00 Dextrose 1,000 ml @ 125 mls/hr Q8H IV Last administered on 05/14/20at 11:35; Start 05/14/20 at 10:45 Potassium Chloride/Water 100 ml @ 50 mls/hr 1X ONCE IV Last administered on 05/14/20at 11:36; Start 05/14/20 at 11:00; Stop 05/14/20 at 12:59; Status DC Active Scripts Active Zyvox (Linezolid) 600 Mg Tablet 600 Mg PO BID 10 Days Cipro (Ciprofloxacin Hcl) 250 Mg Tablet 500 Mg PO BID 10 Days Ondansetron Odt (Ondansetron) 4 Mg Tab.rapdis 1 Tab PO PRN Q6-8HRS Lantus (Insulin Glargine,Hum.rec.anlog) 100 Unit/1 Ml Vial 10 Unit SQ QHS 30 Days Atorvastatin Calcium 10 Mg Tablet 10 Mg PO QHS Midodrine Hcl 2.5 Mg Tablet 2.5 Mg PO [id number] Reported Isosorbide Mononitrate Er (Isosorbide Mononitrate) 30 Mg Tab.er.24h 30 Mg PO DAILY Carvedilol 25 Mg Tablet 12.5 Mg PO BIDWMEALS Proair Hfa Inhaler (Albuterol Sulfate) 8.5 Gm Hfa.aer.ad 2 Puff IH PRN Q4-6HRS PRN 21 Days Aspirin 81 Mg Tab.chew 1 Tab PO DAILY Vitamin D2 (Ergocalciferol (Vitamin D2)) 50,000 Unit Capsule 1 Cap PO WEEKLY 28 Days Lisinopril 40 Mg Tablet 20 Mg PO DAILY PRN Gabapentin 600 Mg Tablet 300 Mg PO QHS Emperatriz-Bid Caplet (Acidoph/L.bulg/Bif.b/S.thermop) 1 Each Tablet 1 Each PO TIDAC Duloxetine Hcl 60 Mg Capsule.dr 60 Mg PO DAILY Allergies Allergies: Coded Allergies: Influenza Virus Vaccines (Verified Allergy, Intermediate, 05/09/17) I S O L A T I O N *CONTACT* (Verified Allergy, Unknown, 05/12/17) mrsa ROS Review of System As per HPI , rest ROS is negative Physical Exam Physical Exam GENERAL:NAD HEENT: Oral cavity moist NECK: Supple, LUNGS: CTA, nonlabored HEART: S1, S2. regular ABDOMEN: Soft, non tender GENITOURINARY: Chronic Marley is in place. 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 NEUROLOGICAL: Alert, moves ext. SKIN No rash Vital Signs Vital Signs Date Time Temp Pulse Resp B/P (MAP) Pulse Ox O2 Delivery O2 Flow Rate FiO2 05/14/20 11:34 88 05/14/20 11:19 96.5 18 167/101 (123) 94 Room Air 96.5 Assessment & Plan HyperNatremia - Present since 05/11 Hold PPN, start IV D5W, discussed with RN Adjust Insulin per PCP , Strict I/O AMANUEL at presentation - resolved Chronic Marley COVID + - 05/07 on steroids Leukopenia - ? viral - better Acute hypoxic resp failure improving, now on room air ? UTI - Morganella MDR and yeast CALB DM - not controlled Labs Labs Laboratory Tests Test 05/12/20 22:04 05/13/20 05:50 05/13/20 13:53 05/13/20 18:06 Glucose (Fingerstick) 288 mg/dL (70-99) 373 mg/dL (70-99) 326 mg/dL (70-99) 292 mg/dL (70-99) Test 05/13/20 23:57 05/14/20 04:08 05/14/20 05:48 05/14/20 12:24 Glucose (Fingerstick) 166 mg/dL (70-99) 112 mg/dL (70-99) 136 mg/dL (70-99) White Blood Count 4.1 x10^3/uL (4.0-11.0) Red Blood Count 4.53 x10^6/uL (4.30-5.70) Hemoglobin 12.6 g/dL (13.0-17.5) Hematocrit 38.3 % (39.0-53.0) Mean Corpuscular Volume 85 fL (79-100) Mean Corpuscular Hemoglobin 28 pg (25-35) Mean Corpuscular Hemoglobin Concent 33 g/dL (31-37) Red Cell Distribution Width 15.6 % (11.5-14.5) Platelet Count 202 x10^3/uL (140-400) Neutrophils (%) (Auto) 80 % (31-73) Lymphocytes (%) (Auto) 12 % (24-48) Monocytes (%) (Auto) 8 % (0-9) Eosinophils (%) (Auto) 0 % (0-3) Basophils (%) (Auto) 0 % (0-3) Neutrophils # (Auto) 3.3 x10^3/uL (1.8-7.7) Lymphocytes # (Auto) 0.5 x10^3/uL (1.0-4.8) Monocytes # (Auto) 0.3 x10^3/uL (0.0-1.1) Eosinophils # (Auto) 0.0 x10^3/uL (0.0-0.7) Basophils # (Auto) 0.0 x10^3/uL (0.0-0.2) Sodium Level 161 mmol/L (136-145) Potassium Level 3.3 mmol/L (3.5-5.1) Chloride Level 120 mmol/L (98-107) Carbon Dioxide Level 28 mmol/L (21-32) Anion Gap 13 (6-14) Blood Urea Nitrogen 55 mg/dL (8-26) Creatinine 1.1 mg/dL (0.7-1.3) Estimated GFR (Cockcroft-Gault) 63.9 Glucose Level 132 mg/dL (70-99) Calcium Level 9.1 mg/dL (8.5-10.1) Laboratory Tests Test 05/13/20 13:53 05/13/20 18:06 05/13/20 23:57 05/14/20 04:08 Glucose (Fingerstick) 326 mg/dL (70-99) 292 mg/dL (70-99) 166 mg/dL (70-99) White Blood Count 4.1 x10^3/uL (4.0-11.0) Red Blood Count 4.53 x10^6/uL (4.30-5.70) Hemoglobin 12.6 g/dL (13.0-17.5) Hematocrit 38.3 % (39.0-53.0) Mean Corpuscular Volume 85 fL (79-100) Mean Corpuscular Hemoglobin 28 pg (25-35) Mean Corpuscular Hemoglobin Concent 33 g/dL (31-37) Red Cell Distribution Width 15.6 % (11.5-14.5) Platelet Count 202 x10^3/uL (140-400) Neutrophils (%) (Auto) 80 % (31-73) Lymphocytes (%) (Auto) 12 % (24-48) Monocytes (%) (Auto) 8 % (0-9) Eosinophils (%) (Auto) 0 % (0-3) Basophils (%) (Auto) 0 % (0-3) Neutrophils # (Auto) 3.3 x10^3/uL (1.8-7.7) Lymphocytes # (Auto) 0.5 x10^3/uL (1.0-4.8) Monocytes # (Auto) 0.3 x10^3/uL (0.0-1.1) Eosinophils # (Auto) 0.0 x10^3/uL (0.0-0.7) Basophils # (Auto) 0.0 x10^3/uL (0.0-0.2) Sodium Level 161 mmol/L (136-145) Potassium Level 3.3 mmol/L (3.5-5.1) Chloride Level 120 mmol/L (98-107) Carbon Dioxide Level 28 mmol/L (21-32) Anion Gap 13 (6-14) Blood Urea Nitrogen 55 mg/dL (8-26) Creatinine 1.1 mg/dL (0.7-1.3) Estimated GFR (Cockcroft-Gault) 63.9 Glucose Level 132 mg/dL (70-99) Calcium Level 9.1 mg/dL (8.5-10.1) Test 05/14/20 05:48 05/14/20 12:24 Glucose (Fingerstick) 112 mg/dL (70-99) 136 mg/dL (70-99) Review All relevant outside records, renal labs, imaging studies, telemetry/EKG's were reviewed. Images Images CXr- 05/09 1. Linear density along the right lateral upper lung, may represent artifact related to skin fold or overlying structures. Recommend repeat PA and lateral radiograph to evaluate for pneumothorax. 2. Left basilar consolidation, decreased compared to prior. 3. Decreased small left pleural effusion. BILLY QUIROGA MD May 14, 2020 13:39
[2020-05-14 15:05] VITALS: BP 135/65
--- NOTE | 2020-05-14 16:13 | NUR ---
Wound Care Photo assessment due to COVID 19 +. Pt has wounds to buttocks, recommend to continue A&D ointment BID and PRN. Left foot recommend betadine daily. WC will follow up on 05/21.
--- NOTE | 2020-05-14 16:33 | NUR ---
SW following. Reviewed chart and spoke with RN. Pt remains on PPN. Pt now on room air. Pt on IV Meropenem. Pt is a LTC resident at [facility] and [facility], ; fax [phone]. SW to continue following.
[2020-05-14 21:04] VITALS: BP 163/81
[2020-05-14 23:09] VITALS: BP 158/84
[2020-05-15] MEDS: INSULIN GLARGINE SYRINGE. SQ SCH ×2 (00:42→21:44)
[2020-05-15] MEDS: INSULIN LISPRO 300 UNITS/3 ML VIAL. SQ SCH ×4 (00:44→17:52)
[2020-05-15] MEDS: IV DEXTROSE 5% 1,000 ML IV SCH (03:07)
[2020-05-15 03:43] VITALS: BP 187/81
[2020-05-15] MEDS: MEROPENEM 500 MG in IV NORMAL SALINE 50ML 50 ML IV SCH ×3 (06:00→21:44)
[2020-05-15] MEDS: methylPREDNISolone SOD SUCC PF 125 MG/2 ML VIAL. IV SCH ×3 (06:00→21:43)
[2020-05-15 07:05] VITALS: BP 188/100
[2020-05-15] MEDS: LACTOBACILLUS RHAMNOSUS GG 1 CAPSULE. PO SCH ×2 (09:00→21:00)
[2020-05-15] MEDS: VITS A & D/LANOLIN TOPICAL OINTMENT 42GM TUBE. TP SCH ×2 (09:00→21:44)
--- NOTE | 2020-05-15 09:16 | PDOC ---
PULMONARY PROGRESS NOTES Subjective Patient more responsive today not short of air, no chest pain no pressure no nausea vomiting diarrhea Vitals Vital Signs Date Time Temp Pulse Resp B/P (MAP) Pulse Ox O2 Delivery O2 Flow Rate FiO2 05/15/20 07:05 95.6 82 18 188/100 (129) 94 Room Air 95.6 05/15/20 03:43 General: Alert Lungs: Crackles Cardiovascular: S1, S2 Abdomen: Soft Extremities: Other (Edema) Skin: Warm Labs Laboratory Tests Test 05/13/20 13:53 05/13/20 18:06 05/13/20 23:57 05/14/20 04:08 Glucose (Fingerstick) 326 mg/dL (70-99) 292 mg/dL (70-99) 166 mg/dL (70-99) White Blood Count 4.1 x10^3/uL (4.0-11.0) Red Blood Count 4.53 x10^6/uL (4.30-5.70) Hemoglobin 12.6 g/dL (13.0-17.5) Hematocrit 38.3 % (39.0-53.0) Mean Corpuscular Volume 85 fL (79-100) Mean Corpuscular Hemoglobin 28 pg (25-35) Mean Corpuscular Hemoglobin Concent 33 g/dL (31-37) Red Cell Distribution Width 15.6 % (11.5-14.5) Platelet Count 202 x10^3/uL (140-400) Neutrophils (%) (Auto) 80 % (31-73) Lymphocytes (%) (Auto) 12 % (24-48) Monocytes (%) (Auto) 8 % (0-9) Eosinophils (%) (Auto) 0 % (0-3) Basophils (%) (Auto) 0 % (0-3) Neutrophils # (Auto) 3.3 x10^3/uL (1.8-7.7) Lymphocytes # (Auto) 0.5 x10^3/uL (1.0-4.8) Monocytes # (Auto) 0.3 x10^3/uL (0.0-1.1) Eosinophils # (Auto) 0.0 x10^3/uL (0.0-0.7) Basophils # (Auto) 0.0 x10^3/uL (0.0-0.2) Sodium Level 161 mmol/L (136-145) Potassium Level 3.3 mmol/L (3.5-5.1) Chloride Level 120 mmol/L (98-107) Carbon Dioxide Level 28 mmol/L (21-32) Anion Gap 13 (6-14) Blood Urea Nitrogen 55 mg/dL (8-26) Creatinine 1.1 mg/dL (0.7-1.3) Estimated GFR (Cockcroft-Gault) 63.9 Glucose Level 132 mg/dL (70-99) Calcium Level 9.1 mg/dL (8.5-10.1) Test 05/14/20 05:48 05/14/20 12:24 05/15/20 00:33 05/15/20 07:34 Glucose (Fingerstick) 112 mg/dL (70-99) 136 mg/dL (70-99) 232 mg/dL (70-99) 283 mg/dL (70-99) Laboratory Tests Test 05/14/20 12:24 05/15/20 00:33 05/15/20 07:34 Glucose (Fingerstick) 136 mg/dL (70-99) 232 mg/dL (70-99) 283 mg/dL (70-99) Medications Active Scripts Medications Dose Route/Sig Max Daily Dose Days Date Category Zyvox (Linezolid) 600 Mg Tablet 600 Mg PO BID 04/15/20 Rx Cipro (Ciprofloxacin Hcl) 250 Mg Tablet 500 Mg PO BID 10 04/15/20 Rx Ondansetron Odt (Ondansetron) 4 Mg Tab.rapdis 1 Tab PO PRN Q6-8HRS 03/20/20 Rx Lantus (Insulin Glargine,Hum.rec.anlog) 100 Unit/1 Ml Vial 10 Unit SQ QHS 30 01/02/20 Rx Isosorbide Mononitrate Er (Isosorbide Mononitrate) 30 Mg Tab.er.24h 30 Mg PO DAILY 10/18/19 Reported Carvedilol 25 Mg Tablet 12.5 Mg PO BIDWMEALS 09/05/19 Reported Proair Hfa Inhaler (Albuterol Sulfate) 8.5 Gm Hfa.aer.ad 2 Puff IH PRN Q4-6HRS PRN 21 09/05/19 Reported Aspirin 81 Mg Tab.chew 1 Tab PO DAILY 09/05/19 Reported Vitamin D2 (Ergocalciferol (Vitamin D2)) 50,000 Unit Capsule 1 Cap PO WEEKLY 28 09/05/19 Reported Lisinopril 40 Mg Tablet 20 Mg PO DAILY PRN 09/05/19 Reported Gabapentin 600 Mg Tablet 300 Mg PO QHS 09/05/19 Reported Emperatriz-Bid Caplet (Acidoph/L.bulg/Bif.b/S.thermop) 1 Each Tablet 1 Each PO TIDAC 03/23/17 Reported Atorvastatin Calcium 10 Mg Tablet 10 Mg PO QHS 09/16/16 Rx Midodrine Hcl 2.5 Mg Tablet 2.5 Mg PO [id number] 09/16/16 Rx Duloxetine Hcl 60 Mg Capsule.dr 60 Mg PO DAILY 09/12/16 Reported Impression . IMPRESSION: 1. Acute hypoxemic respiratory failure. 2. Elevated troponin, suspect, and non-ST segment elevation myocardial infarction. 3. Acute on chronic systolic heart failure. 4. Possible aspiration pneumonia. 5. Acute on chronic kidney disease. 6. Hypertension. 7. Diabetes. 8. Toxic metabolic encephalopathy. 9. Possible sepsis. 10. History of SARS-CoV-2 positive. 11. 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 12. History of Clostridium difficile. 13. 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 Sodium is better continue the same Nebulized treatment Decrease Solu-Medrol Oxygen titration Empiric antibiotic per ID Follow cardiology input Monitor blood sugars dvt prophylaxis FAMILIA DUARTE MD May 15, 2020 09:16
--- NOTE | 2020-05-15 09:25 | PDOC ---
SUBJECTIVE ROS Stable, Nonverbal, Swallow study today OBJECTIVE Vital Signs Vital Signs Date Time Temp Pulse Resp B/P (MAP) Pulse Ox O2 Delivery O2 Flow Rate FiO2 05/15/20 07:05 95.6 82 18 188/100 (129) 94 Room Air 95.6 05/15/20 03:43 I & 0 Intake and Output 05/15/20 07:00 Intake Total 1050 ml Output Total 950 ml Balance 100 ml Intake Oral 0 ml IV Total 1050 ml Output Urine Total 950 ml PHYSICAL EXAM Physical Exam GENERAL:NAD HEENT: Oral cavity moist NECK: Supple, LUNGS: CTA, nonlabored HEART: S1, S2. regular ABDOMEN: Soft, non tender GENITOURINARY: Chronic Marley is in place. 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 NEUROLOGICAL: Alert, moves ext. SKIN No rash DIAGNOSIS/ASSESSMENT Assessment & Plan HyperNatremia - Present since 05/11 PPN held, Na improving with IV D5W, DC IVF , monitor Strict I/O HypKalemia Replace IV KCL , darian RN AMANUEL at presentation - resolved Chronic Marley COVID + - 05/07 on steroids Leukopenia - ? viral - better Acute hypoxic resp failure improving, now on room air ? UTI - Morganella MDR and yeast CALB DM - not controlled COMMENT/RELEVANT DATA Meds Current Medications Medications (Trade) Dose Ordered Sig/Chay Start Time Stop Time Status Last Admin Dose Admin Acetaminophen (Tylenol Supp) 650 mg 1X ONCE 05/09/20 05:00 05/09/20 05:01 DC 05/09/20 06:15 650 MG Amino Acids/ Glycerin/ Electrolytes 1,000 ml @ 75 mls/hr [id number] 05/09/20 08:30 05/14/20 10:55 DC 05/14/20 08:59 75 MLS/HR Aspirin (Aspirin Chewable) 324 mg 1X ONCE 05/06/20 21:00 05/06/20 21:01 DC 05/06/20 21:02 324 MG Aspirin (Aspirin Rectal Supp) 300 mg DAILY 05/08/20 09:00 05/14/20 09:00 300 MG Ceftriaxone Sodium (Rocephin) 1 gm 1X ONCE 05/06/20 20:30 05/06/20 20:32 DC 05/06/20 21:03 1 GM Daptomycin 380 mg/ Sodium Chloride 50 ml @ 100 mls/hr Q48H 7/6/20 16:00 05/09/20 07:56 DC 05/07/20 16:00 100 MLS/HR Dextrose 1,000 ml @ 125 mls/hr Q8H 05/14/20 10:45 05/15/20 03:07 125 MLS/HR Dextrose (Dextrose 50%-Water Syringe) 12.5 gm PRN Q15MIN PRN 05/08/20 11:45 Enoxaparin Sodium (Lovenox 40mg Syringe) 40 mg BID 05/11/20 15:15 05/14/20 20:42 40 MG Fluconazole/ Sodium Chloride 50 ml @ 100 mls/hr Q24H 05/09/20 08:00 05/14/20 09:01 100 MLS/HR Furosemide (Lasix) 40 mg 1X ONCE 05/07/20 11:15 05/07/20 11:16 DC 05/07/20 11:15 40 MG Hydralazine HCl (Apresoline Inj) 10 mg PRN Q4HRS PRN 05/09/20 17:00 05/14/20 11:34 10 MG Insulin Glargine (Lantus Syringe) 50 unit QHS 05/13/20 21:00 05/15/20 00:42 50 UNIT Insulin Human Lispro (HumaLOG) 10 units Q6HRS PRN 05/08/20 12:30 05/11/20 12:09 10 UNITS Insulin Human Regular (HumuLIN R VIAL) 10 unit 1X ONCE 05/06/20 22:00 05/06/20 22:01 DC 05/06/20 21:58 10 UNIT Lactobacillus Rhamnosus (Culturelle) 1 cap BID 05/08/20 21:00 05/13/20 09:30 1 CAP Linezolid/Dextrose 300 ml @ 300 mls/hr Q12HR 05/07/20 17:00 05/09/20 07:56 DC 05/08/20 21:29 300 MLS/HR Meropenem 500 mg/ Sodium Chloride 50 ml @ 100 mls/hr Q8HRS 05/10/20 21:00 05/14/20 20:42 100 MLS/HR Methylprednisolone Sodium Succinate (SOLU-Medrol 125MG VIAL) 80 mg Q8HRS 05/09/20 14:00 05/14/20 23:06 80 MG Potassium Chloride/Water 100 ml @ 50 mls/hr 1X ONCE 05/14/20 11:00 05/14/20 12:59 DC 05/14/20 11:36 50 MLS/HR Sodium Chloride 1,000 ml @ 75 mls/hr [id number] 05/08/20 11:45 05/09/20 08:21 DC 05/08/20 21:51 75 MLS/HR Sterile Water (WATER for RESP) 1,000 ml CONT PRN 05/07/20 12:15 05/07/20 21:30 1,000 ML Vitamin A/Vitamin D (Vitamin A & D Ointment) 1 kimberly BID 05/07/20 21:00 05/14/20 20:42 1 KIMBERLY Lab Laboratory Tests Test 05/14/20 12:24 05/15/20 00:33 05/15/20 07:34 Glucose (Fingerstick) 136 mg/dL (70-99) 232 mg/dL (70-99) 283 mg/dL (70-99) Results All relevant outside records, renal labs, imaging studies, telemetry/EKG's were reviewed. Justicifation of Admission Dx: Justifications for Admission: Justification of Admission Dx: Yes Sepsis: Infection UT: Acute NSTEMI BILLY QUIROGA MD May 15, 2020 09:25
[2020-05-15] MEDS: hydrALAZINE 20 MG/ML VIAL. IVP PRN (09:48)
[2020-05-15] MEDS: ASPIRIN RECTAL 300 MG SUPP. PR SCH (10:13)
--- NOTE | 2020-05-15 10:15 | PDOC ---
Infectious Disease Note Subjective Subjective Nonverbal Satting > 95% on room air Marley bag (not tube) was changed No fevers PPN ROS ROS no n/v/d/ Vital Sign Vital Signs Vital Signs Date Time Temp Pulse Resp B/P (MAP) Pulse Ox O2 Delivery O2 Flow Rate FiO2 05/15/20 09:48 82 188/100 05/15/20 07:05 95.6 18 94 Room Air 95.6 05/15/20 03:43 Physical Exam PHYSICAL EXAM GENERAL: Propped up in bed, alert, calm with mitts in place HEENT: Oral cavity, pharynx has poor dentition, dry. He has normal conjunctivae. NECK: Supple, without JVD. LUNGS: Improved aeration, nonlabored HEART: S1, S2. regular ABDOMEN: Soft, no guarding. GENITOURINARY: Marley is in place. EXTREMITIES: Right below-knee amputation without signs of complications, LLE without edema. Foot callous with iodine - NT NEUROLOGICAL: Alert, moved ext. Labs Lab Laboratory Tests Test 05/14/20 12:24 05/15/20 00:33 05/15/20 07:34 Glucose (Fingerstick) 136 mg/dL (70-99) 232 mg/dL (70-99) 283 mg/dL (70-99) Micro Microbiology 05/06/20 Urine Culture - Final, Complete 05/06/20 Antimicrobic Susceptibility - Final, Complete 05/06/20 Blood Culture - Final, Complete NO GROWTH AFTER 5 DAYS Objective Assessment COVID + - 05/07 on steroids Leukopenia - ? viral - better Fever- ? COVID ? UTI vs med - improving CKD with AMANUEL - slight worse today Acute hypoxic resp failure improving, now on room air ? UTI - Morganella MDR and yeast CALB Elevated Troponin - ? type 2 NSTEMI Recent MRSA/Pseudomonas DM - not controlled H/o C-diff Plan Plan of Care Cont Meropenem 05/07 Fluconazole - no H/o arrhythmias for a few days 05/09 Defer Steroids to pulm off Daptomycin and Linezolid (for lung) with neg cults started 05/07 - 05/09 Marley not changed. ? difficulty. May need urology per nursing Repeat labs in am Maintain aspiration precautions Airborne and contact isolation for COVID and MDRO antibiotics can be d/c ed soon consider hospice ARLET ARANDA MD May 15, 2020 10:15
[2020-05-15] MEDS: ENOXAPARIN 40 MG/0.4 ML SYRINGE. SQ SCH ×2 (10:17→21:43)
[2020-05-15 10:46] LABS: CALCIUM 8.3 mg/dL (8.5-10.1); GFR 71.4
[2020-05-15 11:15] VITALS: BP 137/70
--- NOTE | 2020-05-15 12:14 | NUR ---
Rehab Screen completed. Pt would benefit from PT/OT eval and treat. Please initiate when pt medically appropriate. Addendum: 05/15/20 at 1215 by SELAM GOMEZ PT Amended: Links added.
[2020-05-15] MEDS ORDERED: METOPROLOL TARTRATE 5 MG/5 ML VIAL. IVP ONE (12:15)
[2020-05-15] MEDS ORDERED: NITROGLYCERIN OINT 1 GM PACKET. TP ONE (12:15)
--- NOTE | 2020-05-15 12:27 | EKG ---
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
--- NOTE | 2020-05-15 12:28 | RAD ---
CHEST AP ONLY History: Reason: chest pain / Spl. Instructions: / History: Comparison: May 09, 2020 Findings: Small left pleural effusion. Patchy left basilar opacity. No pneumothorax. Normal heart size. Impression: 1. Small left pleural effusion with adjacent opacity, unchanged compared to prior. Electronically signed by: Omari Ramirez DO (05/15/2020 12:25 PM) [id number]
[2020-05-15] MEDS: POTASSIUM CHLORIDE 10MEQ 100 ML IV SCH ×4 (12:29→17:18)
[2020-05-15] MEDS: MORPHINE SULFATE 2 MG/ML VIAL. IV PRN (12:30)
[2020-05-15 15:12] VITALS: BP 134/66
--- NOTE | 2020-05-15 15:17 | NUR ---
SW following. Reviewed chart and spoke with RN and CM. Spoke with Dr. Ríos and pt not ready for discharge. Pt STAT EKG today. Pt remains on PPN. Pt now on room air. Pt on IV Meropenem. Pt is a LTC resident at [facility], ; fax [phone]. BELLE to continue following. Addendum: 05/17/20 at 1012 by RALPH ODONNELL Correction- the hospitalist for this pt is Dr. Prater and not Dr. Ríos.
[2020-05-15] MEDS: FLUCONAZOLE 100MG/50ML PREMIX 50 ML IV SCH (15:35)
--- NOTE | 2020-05-15 16:50 | PDOC ---
CARDIO Progress Notes Date and Time Date of Service 05/15/20 Time of Evaluation 1420 Subjective Comments: Anxious, went into SVT this afternoon. Was SOA, c/o CP Vitals Vitals Vital Signs Date Time Temp Pulse Resp B/P (MAP) Pulse Ox O2 Delivery O2 Flow Rate FiO2 05/15/20 15:12 95.8 76 16 134/66 (88) 99 Room Air 95.8 05/15/20 13:00 10.0 Weight Weight [ ] Input and Output Intake and Output Intake and Output 05/15/20 07:00 Intake Total 1050 ml Output Total 950 ml Balance 100 ml Intake Oral 0 ml IV Total 1050 ml Output Urine Total 950 ml Laboratory Labs Laboratory Tests Test 05/15/20 00:33 05/15/20 07:34 05/15/20 10:05 05/15/20 11:01 Glucose (Fingerstick) 232 mg/dL (70-99) 283 mg/dL (70-99) 293 mg/dL (70-99) Sodium Level 152 mmol/L (136-145) Potassium Level 3.0 mmol/L (3.5-5.1) Chloride Level 114 mmol/L (98-107) Carbon Dioxide Level 27 mmol/L (21-32) Anion Gap 11 (6-14) Blood Urea Nitrogen 45 mg/dL (8-26) Creatinine 1.0 mg/dL (0.7-1.3) Estimated GFR (Cockcroft-Gault) 71.4 Glucose Level 319 mg/dL (70-99) Calcium Level 8.3 mg/dL (8.5-10.1) Microbiology Micro Microbiology 05/06/20 Urine Culture - Final, Complete 05/06/20 Antimicrobic Susceptibility - Final, Complete 05/06/20 Blood Culture - Final, Complete NO GROWTH AFTER 5 DAYS Physical Exam HEENT: Neck Supple W Full Motion Chest: Symmetric LUNGS: Other (CXR reviewed) Heart: RRR (SR) Neurology: alert Assessment Assessment 1. Acute respiratory failure secondary to COVID PNA. Fevers. Improving. 2. Acute on chronic systolic CHF; 3. NSTEMI; highest trop 0.5. Most probably type II, demand ischemia with multiple culprits noted. LVEF 50-55% 4. AMANUEL on CKD; resolved 5. Hypertension; controlled 6. Metabolic encephalopathy; improved 7. CAD; details unknown 8. Diabetes, II; uncontrolled. as per IM 9. PAD s/p right BKA 10. UTI 11. Hypernatremia; improved 12. Arrhythmia; went into SVT this afternoon. Anxious, c/o CP although he is unable to describe. Convert back to SR with IV metoprolol 13. Hypokalemia Recommendations ASA therapy Add metoprolol IV for rate control TSH, Mg level- replace as warranted Supportive care Justicifation of Admission Dx: Justifications for Admission: Justification of Admission Dx: Yes Sepsis: Infection MN: Acute NSTEMI JOBY JAMIL APRN May 15, 2020 16:50
[2020-05-15] MEDS: METOPROLOL TARTRATE 5 MG/5 ML VIAL. IVP SCH (17:18)
[2020-05-15 19:00] VITALS: BP 158/74
[2020-05-15 23:00] VITALS: BP 164/70
[2020-05-16] MEDS: METOPROLOL TARTRATE 5 MG/5 ML VIAL. IVP SCH ×5 (00:19→23:06)
[2020-05-16] MEDS: DEXTROSE 50% 25 GM / 50ML DISP.SYRIN. IV PRN (00:30)
[2020-05-16 03:00] VITALS: BP 142/74
[2020-05-16] MEDS: INSULIN LISPRO 300 UNITS/3 ML VIAL. SQ SCH ×4 (06:00→17:58)
[2020-05-16] MEDS: methylPREDNISolone SOD SUCC PF 125 MG/2 ML VIAL. IV SCH ×3 (06:05→20:21)
[2020-05-16] MEDS: MEROPENEM 500 MG in IV NORMAL SALINE 50ML 50 ML IV SCH ×3 (06:06→20:23)
[2020-05-16 07:03] LABS: CALCIUM 7.9 mg/dL (8.5-10.1); CREATININE 0.8 mg/dL (0.7-1.3); GFR 92.3; POTASSIUM 3.7 mmol/L (3.5-5.1)
[2020-05-16 07:15] VITALS: BP 135/65
--- NOTE | 2020-05-16 07:51 | PDOC ---
GENERAL General: late note for 05/15 as computers down yesterday am. vss and afebrile. mental status same. renal help appreciated for hypernatremia. continue same. VITAL SIGNS/I&O Vital Signs/I&O: Vital Signs Date Time Temp Pulse Resp B/P (MAP) Pulse Ox O2 Delivery O2 Flow Rate FiO2 05/16/20 06:06 78 136/73 05/16/20 03:00 98.9 18 97 98.9 05/15/20 20:00 Nasal Cannula 1.0 I & O 0 05/15/20 05/15/20 05/16/20 15:00 23:00 07:00 Intake Total 0 ml 0 ml 0 ml Output Total 485 ml 650 ml 200 ml Balance -485 ml -650 ml -200 ml ALLERGIES Allergies: Allergies Coded Allergies Type Severity Reaction Last Updated Verified Influenza Virus Vaccines Allergy Intermediate 05/09/17 Yes I S O L A T I O N *CONTACT* Allergy Unknown 05/12/17 Yes MEDS Medications: Current Medications Medications (Trade) Dose Ordered Sig/Chay Route PRN Reason Start Time Stop Time Status Last Admin Dose Admin Potassium Chloride/Water 100 ml @ 100 mls/hr Q1H IV 05/15/20 11:00 05/15/20 14:59 DC 05/15/20 17:18 Morphine Sulfate (Morphine Sulfate) 2 mg PRN Q2HR PRN IV MODERATE TO SEVERE PAIN 05/15/20 12:15 05/15/20 12:30 Nitroglycerin (Nitro-Bid Oint) 1 inch 1X ONCE TP 05/15/20 12:15 05/15/20 12:16 DC 05/15/20 12:32 Metoprolol Tartrate (Lopressor Vial) 5 mg 1X ONCE IVP 05/15/20 12:15 05/15/20 12:16 DC 05/15/20 12:33 Metoprolol Tartrate (Lopressor Vial) 5 mg Q6HRS IVP 05/15/20 18:00 05/16/20 06:06 LAB Lab: Laboratory Tests Test 05/15/20 10:05 05/15/20 11:01 05/15/20 13:30 05/15/20 17:49 Sodium Level 152 mmol/L (136-145) H Potassium Level 3.0 mmol/L (3.5-5.1) L Chloride Level 114 mmol/L (98-107) H Carbon Dioxide Level 27 mmol/L (21-32) Anion Gap 11 (6-14) Blood Urea Nitrogen 45 mg/dL (8-26) H Creatinine 1.0 mg/dL (0.7-1.3) Estimated GFR (Cockcroft-Gault) 71.4 Glucose Level 319 mg/dL (70-99) H Calcium Level 8.3 mg/dL (8.5-10.1) L Magnesium Level 2.4 mg/dL (1.8-2.4) Troponin I Quantitative 0.162 ng/mL (0.000-0.055) Thyroid Stimulating Hormone (TSH) 0.099 uIU/mL (0.358-3.74) L Glucose (Fingerstick) 293 mg/dL (70-99) H 139 mg/dL (70-99) H Coronavirus (COVID-19)(PCR) Positive (NEGATIVE) A Test 05/16/20 00:27 05/16/20 00:43 05/16/20 06:00 05/16/20 06:11 Glucose (Fingerstick) 62 mg/dL (70-99) L 117 mg/dL (70-99) H 99 mg/dL (70-99) Sodium Level 156 mmol/L (136-145) H Potassium Level 3.7 mmol/L (3.5-5.1) Chloride Level 120 mmol/L (98-107) H Carbon Dioxide Level 25 mmol/L (21-32) Anion Gap 11 (6-14) Blood Urea Nitrogen 42 mg/dL (8-26) H Creatinine 0.8 mg/dL (0.7-1.3) Estimated GFR (Cockcroft-Gault) 92.3 Glucose Level 95 mg/dL (70-99) Calcium Level 7.9 mg/dL (8.5-10.1) L Laboratory Tests 05/15/20 10:05 05/16/20 06:00 Justicifation of Admission Dx: Justifications for Admission: Justification of Admission Dx: Yes Sepsis: Infection AR: Acute NSTEMI Nutrition Consultation Dietary Evaluation: Recommendations by RD: Dietary education by RD, Increase Calorie Intake, Prote in supplementation Comments: If continued aggressive care desired and if unable to advance diet, would recommend dobhoff for TFs to best meet nutrition needs, rec TFs per following: Glucerna 1.2@goal rate 50 ml/hr w/125 ml water flushes q4 hrs w/Pepe BID and liquid MVI (wound healing) Expected Outcomes/Goals: Diet advancement - not met, goal ongoing Interpretation of weight loss: >5% in 1 month Malnutrition Findings: Food and Nutrition Intake (Sev: <50% est energy req 5days Weight Status: Underweight APPLLUISITO MD May 16, 2020 07:51
[2020-05-16] MEDS: LACTOBACILLUS RHAMNOSUS GG 1 CAPSULE. PO SCH ×2 (07:52→20:20)
--- NOTE | 2020-05-16 07:55 | PDOC ---
GENERAL General: vss and afebrile. svt yesterday pm and controlled with metoprolol. failed swallow test yesterday. sodium improving. sugars fair. still covid +. exam and mental state same. continue present care. AMANUEL improving with hydration. VITAL SIGNS/I&O Vital Signs/I&O: Vital Signs Date Time Temp Pulse Resp B/P (MAP) Pulse Ox O2 Delivery O2 Flow Rate FiO2 05/16/20 06:06 78 136/73 05/16/20 03:00 98.9 18 97 98.9 05/15/20 20:00 Nasal Cannula 1.0 I & O 05/15/20 05/15/20 05/16/20 15:00 23:00 07:00 Intake Total 0 ml 0 ml 0 ml Output Total 485 ml 650 ml 200 ml Balance -485 ml -650 ml -200 ml ALLERGIES Allergies: Allergies Coded Allergies Type Severity Reaction Last Updated Verified Influenza Virus Vaccines Allergy Intermediate 05/09/17 Yes I S O L A T I O N *CONTACT* Allergy Unknown 05/12/17 Yes MEDS Medications: Current Medications Medications (Trade) Dose Ordered Sig/Chay Route PRN Reason Start Time Stop Time Status Last Admin Dose Admin Potassium Chloride/Water 100 ml @ 100 mls/hr Q1H IV 05/15/20 11:00 05/15/20 14:59 DC 05/15/20 17:18 Morphine Sulfate (Morphine Sulfate) 2 mg PRN Q2HR PRN IV MODERATE TO SEVERE PAIN 05/15/20 12:15 05/15/20 12:30 Nitroglycerin (Nitro-Bid Oint) 1 inch 1X ONCE TP 05/15/20 12:15 05/15/20 12:16 DC 05/15/20 12:32 Metoprolol Tartrate (Lopressor Vial) 5 mg 1X ONCE IVP 05/15/20 12:15 05/15/20 12:16 DC 05/15/20 12:33 Metoprolol Tartrate (Lopressor Vial) 5 mg Q6HRS IVP 05/15/20 18:00 05/16/20 06:06 LAB Lab: Laboratory Tests Test 05/15/20 10:05 05/15/20 11:01 05/15/20 13:30 05/15/20 17:49 Sodium Level 152 mmol/L (136-145) H Potassium Level 3.0 mmol/L (3.5-5.1) L Chloride Level 114 mmol/L (98-107) H Carbon Dioxide Level 27 mmol/L (21-32) Anion Gap 11 (6-14) Blood Urea Nitrogen 45 mg/dL (8-26) H Creatinine 1.0 mg/dL (0.7-1.3) Estimated GFR (Cockcroft-Gault) 71.4 Glucose Level 319 mg/dL (70-99) H Calcium Level 8.3 mg/dL (8.5-10.1) L Magnesium Level 2.4 mg/dL (1.8-2.4) Troponin I Quantitative 0.162 ng/mL (0.000-0.055) Thyroid Stimulating Hormone (TSH) 0.099 uIU/mL (0.358-3.74) L Glucose (Fingerstick) 293 mg/dL (70-99) H 139 mg/dL (70-99) H Coronavirus (COVID-19)(PCR) Positive (NEGATIVE) A Test 05/16/20 00:27 05/16/20 00:43 05/16/20 06:00 05/16/20 06:11 Glucose (Fingerstick) 62 mg/dL (70-99) L 117 mg/dL (70-99) H 99 mg/dL (70-99) Sodium Level 156 mmol/L (136-145) H Potassium Level 3.7 mmol/L (3.5-5.1) Chloride Level 120 mmol/L (98-107) H Carbon Dioxide Level 25 mmol/L (21-32) Anion Gap 11 (6-14) Blood Urea Nitrogen 42 mg/dL (8-26) H Creatinine 0.8 mg/dL (0.7-1.3) Estimated GFR (Cockcroft-Gault) 92.3 Glucose Level 95 mg/dL (70-99) Calcium Level 7.9 mg/dL (8.5-10.1) L Laboratory Tests 05/15/20 10:05 05/16/20 06:00 Justicifation of Admission Dx: Justifications for Admission: Justification of Admission Dx: Yes Sepsis: Infection SD: Acute NSTEMI Nutrition Consultation Dietary Evaluation: Recommendations by RD: Dietary education by RD, Increase Calorie Intake, Protein supplementation Comments: If continued aggressive care desired and if unable to advance diet, would recommend dobhoff for TFs to best meet nutrition needs, rec TFs per following: Glucerna 1.2@goal rate 50 ml/hr w/125 ml water flushes q4 hrs w/Pepe BID and liquid MVI (wound healing) Expected Outcomes/Goals: Diet advancement - not met, goal ongoing Interpretation of weight loss: >5% in 1 month Malnutrition Findings: Food and Nutrition Intake (Sev: <50% est energy req 5days Weight Status: Underweight APPL,LUISITO Patel MD May 16, 2020 07:55
[2020-05-16] MEDS: VITS A & D/LANOLIN TOPICAL OINTMENT 42GM TUBE. TP SCH ×2 (08:48→22:48)
[2020-05-16] MEDS: ASPIRIN RECTAL 300 MG SUPP. PR SCH (08:49)
[2020-05-16] MEDS: ENOXAPARIN 40 MG/0.4 ML SYRINGE. SQ SCH ×2 (08:49→20:21)
[2020-05-16] MEDS: FLUCONAZOLE 100MG/50ML PREMIX 50 ML IV SCH (08:51)
--- NOTE | 2020-05-16 09:19 | PDOC ---
SUBJECTIVE ROS Stable, Nonverbal, Failed Swallow study OBJECTIVE Vital Signs Vital Signs Date Time Temp Pulse Resp B/P (MAP) Pulse Ox O2 Delivery O2 Flow Rate FiO2 05/16/20 07:15 98.0 73 18 135/65 (88) 96 Room Air 98.0 05/15/20 20:00 1.0 I & 0 Intake and Output 05/16/20 07:00 Intake Total 0 ml Output Total 1335 ml Balance -1335 ml Intake Oral 0 ml Output Urine Total 1335 ml PHYSICAL EXAM Physical Exam GENERAL:NAD HEENT: Oral cavity moist NECK: Supple, LUNGS: CTA, nonlabored HEART: S1, S2. regular ABDOMEN: Soft, non tender GENITOURINARY: Chronic Marley is in place. 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 NEUROLOGICAL: Alert, moves ext. SKIN No rash DIAGNOSIS/ASSESSMENT Assessment & Plan HyperNatremia - Present since 05/11 PPN held, Na improved with IV D5W, DCed yesterday to avoid Overcorrection Restart D5W , Dw RN HypoKalemia Replaced , Low Normal today AMANUEL at presentation - resolved Chronic Marley COVID + - 05/07 on steroids Leukopenia - ? viral - better Acute hypoxic resp failure improving, now on room air ? UTI - Morganella MDR and yeast CALB DM - not controlled COMMENT/RELEVANT DATA Meds Current Medications Medications (Trade) Dose Ordered Sig/Cahy Start Time Stop Time Status Last Admin Dose Admin Acetaminophen (Tylenol Supp) 650 mg 1X ONCE 05/09/20 05:00 05/09/20 05:01 DC 05/09/20 06:15 650 MG Amino Acids/ Glycerin/ Electrolytes 1,000 ml @ 75 mls/hr [id number] 05/09/20 08:30 05/14/20 10:55 DC 05/14/20 08:59 75 MLS/HR Aspirin (Aspirin Chewable) 324 mg 1X ONCE 05/06/20 21:00 05/06/20 21:01 DC 05/06/20 21:02 324 MG Aspirin (Aspirin Rectal Supp) 300 mg DAILY 05/08/20 09:00 05/16/20 08:49 300 MG Ceftriaxone Sodium (Rocephin) 1 gm 1X ONCE 05/06/20 20:30 05/06/20 20:32 DC 05/06/20 21:03 1 GM Daptomycin 380 mg/ Sodium Chloride 50 ml @ 100 mls/hr Q48H 05/07/20 16:00 05/09/20 07:56 DC 05/07/20 16:00 100 MLS/HR Dextrose 1,000 ml @ 125 mls/hr Q8H 05/14/20 10:45 05/15/20 10:57 DC 05/15/20 03:07 125 MLS/HR Dextrose (Dextrose 50%-Water Syringe) 12.5 gm PRN Q15MIN PRN 05/08/20 11:45 05/16/20 00:30 12.5 GM Enoxaparin Sodium (Lovenox 40mg Syringe) 40 mg BID 05/11/20 15:15 05/16/20 08:49 40 MG Fluconazole/ Sodium Chloride 50 ml @ 100 mls/hr Q24H 05/09/20 08:00 05/16/20 08:51 100 MLS/HR Furosemide (Lasix) 40 mg 1X ONCE 05/07/20 11:15 05/07/20 11:16 DC 05/07/20 11:15 40 MG Hydralazine HCl (Apresoline Inj) 10 mg PRN Q4HRS PRN 05/09/20 17:00 05/15/20 09:48 10 MG Insulin Glargine (Lantus Syringe) 50 unit QHS 05/13/20 21:00 05/15/20 21:44 50 UNIT Insulin Human Lispro (HumaLOG) 10 units Q6HRS PRN 05/08/20 12:30 05/11/20 12:09 10 UNITS Insulin Human Regular (HumuLIN R VIAL) 10 unit 1X ONCE 05/06/20 22:00 05/06/20 22:01 DC 05/06/20 21:58 10 UNIT Lactobacillus Rhamnosus (Culturelle) 1 cap BID 05/08/20 21:00 05/13/20 09:30 1 CAP Linezolid/Dextrose 300 ml @ 300 mls/hr Q12HR 05/07/20 17:00 05/09/20 07:56 DC 05/08/20 21:29 300 MLS/HR Meropenem 500 mg/ Sodium Chloride 50 ml @ 100 mls/hr Q8HRS 05/10/20 21:00 05/16/20 06:06 100 MLS/HR Methylprednisolone Sodium Succinate (SOLU-Medrol 125MG VIAL) 80 mg Q8HRS 05/09/20 14:00 05/16/20 06:05 80 MG Metoprolol Tartrate (Lopressor Vial) 5 mg Q6HRS 05/15/20 18:00 05/16/20 06:06 5 MG Morphine Sulfate (Morphine Sulfate) 2 mg PRN Q2HR PRN 05/15/20 12:15 05/15/20 12:30 2 MG Nitroglycerin (Nitro-Bid Oint) 1 inch 1X ONCE 05/15/20 12:15 05/15/20 12:16 DC 05/15/20 12:32 1 INCH Potassium Chloride/Water 100 ml @ 100 mls/hr Q1H 05/15/20 11:00 05/15/20 14:59 DC 05/15/20 17:18 100 MLS/HR Sodium Chloride 1,000 ml @ 75 mls/hr [id number] 05/08/20 11:45 05/09/20 08:21 DC 05/08/20 21:51 75 MLS/HR Sterile Water (WATER for RESP) 1,000 ml CONT PRN 05/07/20 12:15 05/07/20 21:30 1,000 ML Vitamin A/Vitamin D (Vitamin A & D Ointment) 1 kimberly BID 05/07/20 21:00 05/16/20 08:48 1 KIMBERLY Lab Laboratory Tests Test 05/15/20 10:05 05/15/20 11:01 05/15/20 13:30 05/15/20 17:49 Sodium Level 152 mmol/L (136-145) Potassium Level 3.0 mmol/L (3.5-5.1) Chloride Level 114 mmol/L (98-107) Carbon Dioxide Level 27 mmol/L (21-32) Anion Gap 11 (6-14) Blood Urea Nitrogen 45 mg/dL (8-26) Creatinine 1.0 mg/dL (0.7-1.3) Estimated GFR (Cockcroft-Gault) 71.4 Glucose Level 319 mg/dL (70-99) Calcium Level 8.3 mg/dL (8.5-10.1) Magnesium Level 2.4 mg/dL (1.8-2.4) Troponin I Quantitative 0.162 ng/mL (0.000-0.055) Thyroid Stimulating Hormone (TSH) 0.099 uIU/mL (0.358-3.74) Glucose (Fingerstick) 293 mg/dL (70-99) 139 mg/dL (70-99) Coronavirus (COVID-19)(PCR) Positive (NEGATIVE) Test 05/16/20 00:27 05/16/20 00:43 05/16/20 06:00 05/16/20 06:11 Glucose (Fingerstick) 62 mg/dL (70-99) 117 mg/dL (70-99) 99 mg/dL (70-99) Sodium Level 156 mmol/L (136-145) Potassium Level 3.7 mmol/L (3.5-5.1) Chloride Level 120 mmol/L (98-107) Carbon Dioxide Level 25 mmol/L (21-32) Anion Gap 11 (6-14) Blood Urea Nitrogen 42 mg/dL (8-26) Creatinine 0.8 mg/dL (0.7-1.3) Estimated GFR (Cockcroft-Gault) 92.3 Glucose Level 95 mg/dL (70-99) Calcium Level 7.9 mg/dL (8.5-10.1) Results All relevant outside records, renal labs, imaging studies, telemetry/EKG's were reviewed. Justicifation of Admission Dx: Justifications for Admission: Justification of Admission Dx: Yes Sepsis: Infection PR: Acute NSTEMI BILLY QUIROGA MD May 16, 2020 09:19
--- NOTE | 2020-05-16 09:29 | PDOC ---
PULMONARY PROGRESS NOTES Subjective Patient short of air at times no chest pain no pressure Vitals Vital Signs Date Time Temp Pulse Resp B/P (MAP) Pulse Ox O2 Delivery O2 Flow Rate FiO2 05/16/20 07:15 98.0 73 18 135/65 (88) 96 Room Air 98.0 05/15/20 20:00 1.0 General: Alert Lungs: Crackles Cardiovascular: S1, S2 Abdomen: Soft Extremities: Other (Edema) Skin: Warm Labs Laboratory Tests Test 05/14/20 12:24 05/15/20 00:33 05/15/20 07:34 05/15/20 10:05 Glucose (Fingerstick) 136 mg/dL (70-99) 232 mg/dL (70-99) 283 mg/dL (70-99) Sodium Level 152 mmol/L (136-145) Potassium Level 3.0 mmol/L (3.5-5.1) Chloride Level 114 mmol/L (98-107) Carbon Dioxide Level 27 mmol/L (21-32) Anion Gap 11 (6-14) Blood Urea Nitrogen 45 mg/dL (8-26) Creatinine 1.0 mg/dL (0.7-1.3) Estimated GFR (Cockcroft-Gault) 71.4 Glucose Level 319 mg/dL (70-99) Calcium Level 8.3 mg/dL (8.5-10.1) Magnesium Level 2.4 mg/dL (1.8-2.4) Troponin I Quantitative 0.162 ng/mL (0.000-0.055) Thyroid Stimulating Hormone (TSH) 0.099 uIU/mL (0.358-3.74) Test 05/15/20 11:01 05/15/20 13:30 05/15/20 17:49 05/16/20 00:27 Glucose (Fingerstick) 293 mg/dL (70-99) 139 mg/dL (70-99) 62 mg/dL (70-99) Coronavirus (COVID-19)(PCR) Positive (NEGATIVE) Test 05/16/20 00:43 05/16/20 06:00 05/16/20 06:11 Glucose (Fingerstick) 117 mg/dL (70-99) 99 mg/dL (70-99) Sodium Level 156 mmol/L (136-145) Potassium Level 3.7 mmol/L (3.5-5.1) Chloride Level 120 mmol/L (98-107) Carbon Dioxide Level 25 mmol/L (21-32) Anion Gap 11 (6-14) Blood Urea Nitrogen 42 mg/dL (8-26) Creatinine 0.8 mg/dL (0.7-1.3) Estimated GFR (Cockcroft-Gault) 92.3 Glucose Level 95 mg/dL (70-99) Calcium Level 7.9 mg/dL (8.5-10.1) Laboratory Tests Test 05/15/20 10:05 05/15/20 11:01 05/15/20 13:30 05/15/20 17:49 Sodium Level 152 mmol/L (136-145) Potassium Level 3.0 mmol/L (3.5-5.1) Chloride Level 114 mmol/L (98-107) Carbon Dioxide Level 27 mmol/L (21-32) Anion Gap 11 (6-14) Blood Urea Nitrogen 45 mg/dL (8-26) Creatinine 1.0 mg/dL (0.7-1.3) Estimated GFR (Cockcroft-Gault) 71.4 Glucose Level 319 mg/dL (70-99) Calcium Level 8.3 mg/dL (8.5-10.1) Magnesium Level 2.4 mg/dL (1.8-2.4) Troponin I Quantitative 0.162 ng/mL (0.000-0.055) Thyroid Stimulating Hormone (TSH) 0.099 uIU/mL (0.358-3.74) Glucose (Fingerstick) 293 mg/dL (70-99) 139 mg/dL (70-99) Coronavirus (COVID-19)(PCR) Positive (NEGATIVE) Test 05/16/20 00:27 05/16/20 00:43 05/16/20 06:00 05/16/20 06:11 Glucose (Fingerstick) 62 mg/dL (70-99) 117 mg/dL (70-99) 99 mg/dL (70-99) Sodium Level 156 mmol/L (136-145) Potassium Level 3.7 mmol/L (3.5-5.1) Chloride Level 120 mmol/L (98-107) Carbon Dioxide Level 25 mmol/L (21-32) Anion Gap 11 (6-14) Blood Urea Nitrogen 42 mg/dL (8-26) Creatinine 0.8 mg/dL (0.7-1.3) Estimated GFR (Cockcroft-Gault) 92.3 Glucose Level 95 mg/dL (70-99) Calcium Level 7.9 mg/dL (8.5-10.1) Medications Active Scripts Medications Dose Route/Sig Max Daily Dose Days Date Category Zyvox (Linezolid) 600 Mg Tablet 600 Mg PO BID 10 04/15/20 Rx Cipro (Ciprofloxacin Hcl) 250 Mg Tablet 500 Mg PO BID 10 04/15/20 Rx Ondansetron Odt (Ondansetron) 4 Mg Tab.rapdis 1 Tab PO PRN Q6-8HRS 03/20/20 Rx Lantus (Insulin Glargine,Hum.rec.anlog) 100 Unit/1 Ml Vial 10 Unit SQ QHS 30 01/02/20 Rx Isosorbide Mononitrate Er (Isosorbide Mononitrate) 30 Mg Tab.er.24h 30 Mg PO DAILY 10/18/19 Reported Carvedilol 25 Mg Tablet 12.5 Mg PO BIDWMEALS 09/05/19 Reported Proair Hfa Inhaler (Albuterol Sulfate) 8.5 Gm Hfa.aer.ad 2 Puff IH PRN Q4-6HRS PRN 21 09/05/19 Reported Aspirin 81 Mg Tab.chew 1 Tab PO DAILY 09/05/19 Reported Vitamin D2 (Ergocalciferol (Vitamin D2)) 50,000 Unit Capsule 1 Cap PO WEEKLY 28 09/05/19 Reported Lisinopril 40 Mg Tablet 20 Mg PO DAILY PRN 09/05/19 Reported Gabapentin 600 Mg Tablet 300 Mg PO QHS 09/05/19 Reported Emperatriz-Bid Caplet (Acidoph/L.bulg/Bif.b/S.thermop) 1 Each Tablet 1 Each PO TIDAC 03/23/17 Reported Atorvastatin Calcium 10 Mg Tablet 10 Mg PO QHS 09/16/16 Rx Midodrine Hcl 2.5 Mg Tablet 2.5 Mg PO [id number] 09/16/16 Rx Duloxetine Hcl 60 Mg Capsule.dr 60 Mg PO DAILY 09/12/16 Reported Impression . IMPRESSION: 1. Acute hypoxemic respiratory failure. 2. Elevated troponin, suspect, and non-ST segment elevation myocardial infarction. 3. Acute on chronic systolic heart failure. 4. Possible aspiration pneumonia. 5. Acute on chronic kidney disease. 6. Hypertension. 7. Diabetes. 8. Toxic metabolic encephalopathy. 9. Possible sepsis. 10. History of SARS-CoV-2 positive. 11. 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 12. History of Clostridium difficile. 13. 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 Prognosis is poor, will continue the same for now Sodium is better continue the same Nebulized treatment Decrease Solu-Medrol Oxygen titration Empiric antibiotic per ID Follow cardiology input Monitor blood sugars dvt prophylaxis FAMILIA DUARTE MD May 16, 2020 09:29
--- NOTE | 2020-05-16 09:35 | NUR ---
RN NOTE patients FSBS was 45 at 0834 gave 1 amp of dextrose per protocol and rechecked FSBS and it was 127. continue with plan of care
[2020-05-16] MEDS ORDERED: IV DEXTROSE 5% - 0.9 % NACL 1,000 ML IV SCH (10:15)
--- NOTE | 2020-05-16 11:01 | PDOC ---
Infectious Disease Note Subjective Subjective Nonverbal Satting > 95% on room air Marley bag (not tube) was changed No fevers PPN Vital Sign Vital Signs Vital Signs Date Time Temp Pulse Resp B/P (MAP) Pulse Ox O2 Delivery O2 Flow Rate FiO2 05/16/20 07:15 98.0 73 18 135/65 (88) 96 Room Air 98.0 05/15/20 20:00 1.0 Physical Exam PHYSICAL EXAM GENERAL: Propped up in bed, alert, calm with mitts in place HEENT: Oral cavity, pharynx has poor dentition, dry. He has normal conjuncti vae. NECK: Supple, without JVD. LUNGS: Improved aeration, nonlabored HEART: S1, S2. regular ABDOMEN: Soft, no guarding. GENITOURINARY: Marley is in place. EXTREMITIES: Right below-knee amputation without signs of complications, LLE without edema. Foot callous with iodine - NT NEUROLOGICAL: Alert, moved ext. Labs Lab Laboratory Tests Test 05/15/20 11:01 05/15/20 13:30 05/15/20 17:49 05/16/20 00:27 Glucose (Fingerstick) 293 mg/dL (70-99) 139 mg/dL (70-99) 62 mg/dL (70-99) Coronavirus (COVID-19)(PCR) Positive (NEGATIVE) Test 05/16/20 00:43 05/16/20 06:00 05/16/20 06:11 Glucose (Fingerstick) 117 mg/dL (70-99) 99 mg/dL (70-99) Sodium Level 156 mmol/L (136-145) Potassium Level 3.7 mmol/L (3.5-5.1) Chloride Level 120 mmol/L (98-107) Carbon Dioxide Level 25 mmol/L (21-32) Anion Gap 11 (6-14) Blood Urea Nitrogen 42 mg/dL (8-26) Creatinine 0.8 mg/dL (0.7-1.3) Estimated GFR (Cockcroft-Gault) 92.3 Glucose Level 95 mg/dL (70-99) Calcium Level 7.9 mg/dL (8.5-10.1) Micro Microbiology 05/06/20 Urine Culture - Final, Complete 05/06/20 Antimicrobic Susceptibility - Final, Complete 05/06/20 Blood Culture - Final, Complete NO GROWTH AFTER 5 DAYS Objective Assessment COVID + - 05/07 on steroids Leukopenia - ? viral - better Fever- ? COVID ? UTI vs med - improving CKD with AMANUEL - slight worse today Acute hypoxic resp failure improving, now on room air ? UTI - Morganella MDR and yeast CALB Elevated Troponin - ? type 2 NSTEMI Recent MRSA/Pseudomonas DM - not controlled H/o C-diff Plan Plan of Care Cont Meropenem 05/07 Fluconazole - no H/o arrhythmias for a few days 05/09 Marley not changed. ? difficulty. May need urology per nursing Repeat labs in am Maintain aspiration precautions Airborne and contact isolation for COVID and MDRO antibiotics can be d/c ed soon consider hospice ARLET ARANDA MD May 16, 2020 11:01
[2020-05-16 11:15] VITALS: BP 159/65
[2020-05-16] MEDS: hydrALAZINE 20 MG/ML VIAL. IVP PRN (13:39)
[2020-05-16] MEDS: MORPHINE SULFATE 2 MG/ML VIAL. IV PRN ×2 (13:40→20:27)
[2020-05-16 15:00] VITALS: BP 104/58
--- NOTE | 2020-05-16 16:45 | NUR ---
SW following. Pt not ready for discharge today. Pt to return to [facility] when stable. SW to continue following.
[2020-05-16 19:00] VITALS: BP 151/70
[2020-05-16] MEDS: IV DEXTROSE 5% 1,000 ML IV SCH (19:00)
[2020-05-16] MEDS: INSULIN GLARGINE SYRINGE. SQ SCH (22:43)
[2020-05-16 23:00] VITALS: BP 183/73
[2020-05-17 03:00] VITALS: BP 147/105
[2020-05-17 04:43] LABS: CALCIUM 7.9 mg/dL (8.5-10.1); CREATININE 0.9 mg/dL (0.7-1.3); GFR 80.6; POTASSIUM 3.2 mmol/L (3.5-5.1)
[2020-05-17] MEDS: INSULIN LISPRO 300 UNITS/3 ML VIAL. SQ SCH ×4 (06:00→18:00)
[2020-05-17] MEDS: MEROPENEM 500 MG in IV NORMAL SALINE 50ML 50 ML IV SCH (06:02)
[2020-05-17] MEDS: methylPREDNISolone SOD SUCC PF 125 MG/2 ML VIAL. IV SCH ×2 (06:03→13:20)
[2020-05-17] MEDS: METOPROLOL TARTRATE 5 MG/5 ML VIAL. IVP SCH ×3 (06:04→17:08)
[2020-05-17] MEDS: DEXTROSE 50% 25 GM / 50ML DISP.SYRIN. IV PRN ×2 (06:20→12:06)
[2020-05-17 07:15] VITALS: BP 150/97
[2020-05-17] MEDS: IV DEXTROSE 5% 1,000 ML IV SCH ×2 (08:20→17:09)
[2020-05-17] MEDS: LACTOBACILLUS RHAMNOSUS GG 1 CAPSULE. PO SCH ×2 (08:38→21:00)
--- NOTE | 2020-05-17 08:51 | PDOC ---
GENERAL General: vss and afebrile. in mits as pulling at everything. exam stable. remains on room air, Na 160 this am and K+3.2 and will defer to renal. hypoglycemic this am and will decrease lantus dose. VITAL SIGNS/I&O Vital Signs/I&O: Vital Signs Date Time Temp Pulse Resp B/P (MAP) Pulse Ox O2 Delivery O2 Flow Rate FiO2 05/17/20 06:04 80 147/105 05/17/20 03:00 97.0 20 91 Nasal Cannula 97.0 05/16/20 23:00 10.0 I & O 05/16/20 05/16/20 05/17/20 15:00 23:00 07:00 Intake Total 0 ml 900 ml Output Total 150 ml Balance -150 ml 900 ml ALLERGIES Allergies: Allergies Coded Allergies Type Severity Reaction Last Updated Verified Influenza Virus Vaccines Allergy Intermediate 05/09/17 Yes I S O L A T I O N "AIRBOURNE" Allergy Unknown 05/16/20 Yes I S O L A T I O N *CONTACT* Allergy Unknown 05/12/17 Yes MEDS Medications: Current Medications Medications (Trade) Dose Ordered Sig/Chay Route PRN Reason Start Time Stop Time Status Last Admin Dose Admin Dextrose/Sodium Chloride 1,000 ml @ 75 mls/hr [id number] IV 05/16/20 10:15 05/16/20 18:06 DC 05/16/20 11:26 Dextrose 1,000 ml @ 75 mls/hr [id number] IV 05/16/20 19:00 05/16/20 19:00 LAB Lab: Laboratory Tests Test 05/16/20 12:06 05/16/20 17:28 05/17/20 00:26 05/17/20 03:55 Glucose (Fingerstick) 84 mg/dL (70-99) 80 mg/dL (70-99) 70 mg/dL (70-99) Sodium Level 160 mmol/L (136-145) *H Potassium Level 3.2 mmol/L (3.5-5.1) L Chloride Level 123 mmol/L (98-107) H Carbon Dioxide Level 27 mmol/L (21-32) Anion Gap 10 (6-14) Blood Urea Nitrogen 42 mg/dL (8-26) H Creatinine 0.9 mg/dL (0.7-1.3) Estimated GFR (Cockcroft-Gault) 80.6 Glucose Level 61 mg/dL (70-99) L Calcium Level 7.9 mg/dL (8.5-10.1) L Test 05/17/20 06:17 Glucose (Fingerstick) 49 mg/dL (70-99) L Laboratory Tests 05/17/20 03:55 Justicifation of Admission Dx: Justifications for Admission: Justification of Admission Dx: Yes Sepsis: Infection CA: Acute NSTEMI Nutrition Consultation Dietary Evaluation: Recommendations by RD: Dietary education by RD, Increase Calorie Intake, Protein supplementation Comments: If aggressive care desired and if unable to advance diet, would recommend dobhoff for TFs to best meet nutrition needs, rec TFs per following: Glucerna 1.2@goal rate 50 ml/hr w/125 ml water flushes q4 hrs w/Pepe BID and liquid MVI (wound healing) Expected Outcomes/Goals: Diet advancement - not met, goal ongoing Interpretation of weight loss: >5% in 1 month Malnutrition Findings: Food and Nutrition Intake (Sev: <50% est energy req 5days Weight Status: Underweight LUISITO RUSSELL MD May 17, 2020 08:51
--- NOTE | 2020-05-17 09:03 | PDOC ---
Infectious Disease Note Subjective Subjective Nonverbal Satting > 95% on room air Marley bag (not tube) was changed No fevers PPN Vital Sign Vital Signs Vital Signs Date Time Temp Pulse Resp B/P (MAP) Pulse Ox O2 Delivery O2 Flow Rate FiO2 05/17/20 06:04 80 147/105 05/17/20 03:00 97.0 20 91 Nasal Cannula 97.0 05/16/20 23:00 10.0 Physical Exam PHYSICAL EXAM GENERAL: Propped up in bed, alert, calm with mitts in place HEENT: Oral cavity, pharynx has poor dentition, dry. He has normal conjunctivae. NECK: Supple, without JVD. LUNGS: Improved aeration, nonlabored HEART: S1, S2. regular ABDOMEN: Soft, no guarding. GENITOURINARY: Marley is in place. EXTREMITIES: Right below-knee amputation without signs of complications, LLE without edema. Foot callous with iodine - NT NEUROLOGICAL: Alert, moved ext. Labs Lab Laboratory Tests Test 05/16/20 12:06 05/16/20 17:28 05/17/20 00:26 05/17/20 03:55 Glucose (Fingerstick) 84 mg/dL (70-99) 80 mg/dL (70-99) 70 mg/dL (70-99) Sodium Level 160 mmol/L (136-145) Potassium Level 3.2 mmol/L (3.5-5.1) Chloride Level 123 mmol/L (98-107) Carbon Dioxide Level 27 mmol/L (21-32) Anion Gap 10 (6-14) Blood Urea Nitrogen 42 mg/dL (8-26) Creatinine 0.9 mg/dL (0.7-1.3) Estimated GFR (Cockcroft-Gault) 80.6 Glucose Level 61 mg/dL (70-99) Calcium Level 7.9 mg/dL (8.5-10.1) Test 05/17/20 06:17 Glucose (Fingerstick) 49 mg/dL (70-99) Micro Microbiology 05/06/20 Urine Culture - Final, Complete 05/06/20 Antimicrobic Susceptibility - Final, Complete 05/06/20 Blood Culture - Final, Complete NO GROWTH AFTER 5 DAYS Objective Assessment COVID + - 05/07 on steroids Leukopenia - ? viral - better Fever- ? COVID ? UTI vs med - improving CKD with AMANUEL - slight worse today Acute hypoxic resp failure improving, now on room air ? UTI - Morganella MDR and yeast CALB Elevated Troponin - ? type 2 NSTEMI Recent MRSA/Pseudomonas DM - not controlled H/o C-diff Plan Plan of Care d/c antibiotics supportive care ARLET ARANDA MD May 17, 2020 09:03
[2020-05-17] MEDS: VITS A & D/LANOLIN TOPICAL OINTMENT 42GM TUBE. TP SCH ×2 (09:07→22:16)
[2020-05-17] MEDS: ASPIRIN RECTAL 300 MG SUPP. PR SCH (09:08)
[2020-05-17] MEDS: ENOXAPARIN 40 MG/0.4 ML SYRINGE. SQ SCH ×2 (09:08→22:17)
[2020-05-17] MEDS: FLUCONAZOLE 100MG/50ML PREMIX 50 ML IV SCH (09:09)
--- NOTE | 2020-05-17 09:58 | PDOC ---
SUBJECTIVE ROS Stable, Nonverbal, Failed Swallow study OBJECTIVE Vital Signs Vital Signs Date Time Temp Pulse Resp B/P (MAP) Pulse Ox O2 Delivery O2 Flow Rate FiO2 05/17/20 07:15 96.3 84 18 150/97 (114) 97 Room Air 96.3 05/16/20 23:00 10.0 I & 0 l Intake and Output 05/17/20 06:59 Intake Total 900 ml Output Total 150 ml Balance 750 ml Intake Oral 0 ml Other 900 ml Output Urine Total 150 ml PHYSICAL EXAM Physical Exam GENERAL:NAD HEENT: Oral cavity moist NECK: Supple, LUNGS: CTA, nonlabored HEART: S1, S2. regular ABDOMEN: Soft, non tender GENITOURINARY: Chronic Marley is in place. 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 NEUROLOGICAL: Alert, moves ext. SKIN No rash DIAGNOSIS/ASSESSMENT Assessment & Plan HyperNatremia - Present since 05/11 PPN held, Na worsening , currently on IV D5W- increase rate to 125 mls/hr , darian RN HypoKalemia - Replace IV KCL, darian RN AMANUEL at presentation - resolved Chronic Marley COVID + - 05/07 on steroids Leukopenia - ? viral - better Acute hypoxic resp failure improving, now on room air ? UTI - Morganella MDR and yeast CALB DM - not controlled COMMENT/RELEVANT DATA Meds Current Medications Medications (Trade) Dose Ordered Sig/Chay Start Time Stop Time Status Last Admin Dose Admin Acetaminophen (Tylenol Supp) 650 mg 1X ONCE 05/09/20 05:00 05/09/20 05:01 DC 05/09/20 06:15 650 MG Amino Acids/ Glycerin/ Electrolytes 1,000 ml @ 75 mls/hr [id number] 05/09/20 08:30 05/14/20 10:55 DC 05/14/20 08:59 75 MLS/HR Aspirin (Aspirin Chewable) 324 mg 1X ONCE 05/06/20 21:00 05/06/20 21:01 DC 05/06/20 21:02 324 MG Aspirin (Aspirin Rectal Supp) 300 mg DAILY 05/08/20 09:00 05/17/20 09:08 300 MG Ceftriaxone Sodium (Rocephin) 1 gm 1X ONCE 05/06/20 20:30 05/06/20 20:32 DC 05/06/20 21:03 1 GM Daptomycin 380 mg/ Sodium Chloride 50 ml @ 100 mls/hr Q48H 05/07/20 16:00 05/09/20 07:56 DC 05/07/20 16:00 100 MLS/HR Dextrose 1,000 ml @ 75 mls/hr [id number] 05/16/20 19:00 05/16/20 19:00 75 MLS/HR Dextrose (Dextrose 50%-Water Syringe) 12.5 gm PRN Q15MIN PRN 05/08/20 11:45 05/17/20 06:20 12.5 GM Dextrose/Sodium Chloride 1,000 ml @ 75 mls/hr [id number] 05/16/20 10:15 05/16/20 18:06 DC 05/16/20 11:26 75 MLS/HR Enoxaparin Sodium (Lovenox 40mg Syringe) 40 mg BID 05/11/20 15:15 05/17/20 09:08 40 MG Fluconazole/ Sodium Chloride 50 ml @ 100 mls/hr Q24H 05/09/20 08:00 05/17/20 09:09 100 MLS/HR Furosemide (Lasix) 40 mg 1X ONCE 05/07/20 11:15 05/07/20 11:16 DC 05/07/20 11:15 40 MG Hydralazine HCl (Apresoline Inj) 10 mg PRN Q4HRS PRN 05/09/20 17:00 05/16/20 13:39 10 MG Insulin Glargine (Lantus Syringe) 40 unit QHS 05/17/20 21:00 Insulin Human Lispro (HumaLOG) 10 units Q6HRS PRN 05/08/20 12:30 05/11/20 12:09 10 UNITS Insulin Human Regular (HumuLIN R VIAL) 10 unit 1X ONCE 05/06/20 22:00 05/06/20 22:01 DC 05/06/20 21:58 10 UNIT Lactobacillus Rhamnosus (Culturelle) 1 cap BID 05/08/20 21:00 05/16/20 20:20 1 CAP Linezolid/Dextrose 300 ml @ 300 mls/hr Q12HR 05/07/20 17:00 05/09/20 07:56 DC 05/08/20 21:29 300 MLS/HR Meropenem 500 mg/ Sodium Chloride 50 ml @ 100 mls/hr Q8HRS 05/10/20 21:00 05/17/20 06:02 100 MLS/HR Methylprednisolone Sodium Succinate (SOLU-Medrol 125MG VIAL) 80 mg Q8HRS 05/09/20 14:00 05/17/20 06:03 80 MG Metoprolol Tartrate (Lopressor Vial) 5 mg Q6HRS 05/15/20 18:00 05/17/20 06:04 5 MG Morphine Sulfate (Morphine Sulfate) 2 mg PRN Q2HR PRN 05/15/20 12:15 05/16/20 20:27 2 MG Nitroglycerin (Nitro-Bid Oint) 1 inch 1X ONCE 05/15/20 12:15 05/15/20 12:16 DC 05/15/20 12:32 1 INCH Potassium Chloride/Water 100 ml @ 50 mls/hr 1X ONCE 05/17/20 12:00 05/17/20 13:59 Sodium Chloride 1,000 ml @ 75 mls/hr [id number] 05/08/20 11:45 05/09/20 08:21 DC 05/08/20 21:51 75 MLS/HR Sterile Water (WATER for RESP) 1,000 ml CONT PRN 05/07/20 12:15 05/07/20 21:30 1,000 ML Vitamin A/Vitamin D (Vitamin A & D Ointment) 1 kimberly BID 05/07/20 21:00 05/17/20 09:07 1 KIMBERLY Lab Laboratory Tests Test 05/16/20 12:06 05/16/20 17:28 05/17/20 00:26 05/17/20 03:55 Glucose (Fingerstick) 84 mg/dL (70-99) 80 mg/dL (70-99) 70 mg/dL (70-99) Sodium Level 160 mmol/L (136-145) Potassium Level 3.2 mmol/L (3.5-5.1) Chloride Level 123 mmol/L (98-107) Carbon Dioxide Level 27 mmol/L (21-32) Anion Gap 10 (6-14) Blood Urea Nitrogen 42 mg/dL (8-26) Creatinine 0.9 mg/dL (0.7-1.3) Estimated GFR (Cockcroft-Gault) 80.6 Glucose Level 61 mg/dL (70-99) Calcium Level 7.9 mg/dL (8.5-10.1) Test 05/17/20 06:17 Glucose (Fingerstick) 49 mg/dL (70-99) Results All relevant outside records, renal labs, imaging studies, telemetry/EKG's were reviewed. Justicifation of Admission Dx: Justifications for Admission: Justification of Admission Dx: Yes Sepsis: Infection [place]: Acute NSTEMI BILLY QUIROGA MD May 17, 2020 09:58
[2020-05-17] MEDS ORDERED: POTASSIUM CHLORIDE 20MEQ 100 ML IV ONE ×2 (10:00→12:00)
--- NOTE | 2020-05-17 10:31 | PDOC ---
PULMONARY PROGRESS NOTES Subjective Patient confused pulls on wires and tubes Vitals Vital Signs Date Time Temp Pulse Resp B/P (MAP) Pulse Ox O2 Delivery O2 Flow Rate FiO2 05/17/20 08:45 Room Air 05/17/20 07:15 96.3 84 18 150/97 (114) 97 96.3 05/16/20 23:00 10.0 General: Alert Lungs: Crackles Cardiovascular: S1, S2 Abdomen: Soft Extremities: Other (Edema) Skin: Warm Labs Laboratory Tests Test 05/15/20 11:01 05/15/20 13:30 05/15/20 17:49 05/16/20 00:27 Glucose (Fingerstick) 293 mg/dL (70-99) 139 mg/dL (70-99) 62 mg/dL (70-99) Coronavirus (COVID-19)(PCR) Positive (NEGATIVE) Test 05/16/20 00:43 05/16/20 06:00 05/16/20 06:11 05/16/20 12:06 Glucose (Fingerstick) 117 mg/dL (70-99) 99 mg/dL (70-99) 84 mg/dL (70-99) Sodium Level 156 mmol/L (136-145) Potassium Level 3.7 mmol/L (3.5-5.1) Chloride Level 120 mmol/L (98-107) Carbon Dioxide Level 25 mmol/L (21-32) Anion Gap 11 (6-14) Blood Urea Nitrogen 42 mg/dL (8-26) Creatinine 0.8 mg/dL (0.7-1.3) Estimated GFR (Cockcroft-Gault) 92.3 Glucose Level 95 mg/dL (70-99) Calcium Level 7.9 mg/dL (8.5-10.1) Test 05/16/20 17:28 05/17/20 00:26 05/17/20 03:55 05/17/20 06:17 Glucose (Fingerstick) 80 mg/dL (70-99) 70 mg/dL (70-99) 49 mg/dL (70-99) Sodium Level 160 mmol/L (136-145) Potassium Level 3.2 mmol/L (3.5-5.1) Chloride Level 123 mmol/L (98-107) Carbon Dioxide Level 27 mmol/L (21-32) Anion Gap 10 (6-14) Blood Urea Nitrogen 42 mg/dL (8-26) Creatinine 0.9 mg/dL (0.7-1.3) Estimated GFR (Cockcroft-Gault) 80.6 Glucose Level 61 mg/dL (70-99) Calcium Level 7.9 mg/dL (8.5-10.1) Laboratory Tests Test 05/16/20 12:06 05/16/20 17:28 05/17/20 00:26 05/17/20 03:55 Glucose (Fingerstick) 84 mg/dL (70-99) 80 mg/dL (70-99) 70 mg/dL (70-99) Sodium Level 160 mmol/L (136-145) Potassium Level 3.2 mmol/L (3.5-5.1) Chloride Level 123 mmol/L (98-107) Carbon Dioxide Level 27 mmol/L (21-32) Anion Gap 10 (6-14) Blood Urea Nitrogen 42 mg/dL (8-26) Creatinine 0.9 mg/dL (0.7-1.3) Estimated GFR (Cockcroft-Gault) 80.6 Glucose Level 61 mg/dL (70-99) Calcium Level 7.9 mg/dL (8.5-10.1) Test 05/17/20 06:17 Glucose (Fingerstick) 49 mg/dL (70-99) Medications Active Scripts Medications Dose Route/Sig Max Daily Dose Days Date Category Zyvox (Linezolid) 600 Mg Tablet 600 Mg PO BID 10 04/15/20 Rx Cipro (Ciprofloxacin Hcl) 250 Mg Tablet 500 Mg PO BID 10 04/15/20 Rx Ondansetron Odt (Ondansetron) 4 Mg Tab.rapdis 1 Tab PO PRN Q6-8HRS 03/20/20 Rx Lantus (Insulin Glargine,Hum.rec.anlog) 100 Unit/1 Ml Vial 10 Unit SQ QHS 30 01/02/20 Rx Isosorbide Mononitrate Er (Isosorbide Mononitrate) 30 Mg Tab.er.24h 30 Mg PO DAILY 10/18/19 Reported Carvedilol 25 Mg Tablet 12.5 Mg PO BIDWMEALS 09/05/19 Reported Proair Hfa Inhaler (Albuterol Sulfate) 8.5 Gm Hfa.aer.ad 2 Puff IH PRN Q4-6HRS PRN 21 09/05/19 Reported Aspirin 81 Mg Tab.chew 1 Tab PO DAILY 09/05/19 Reported Vitamin D2 (Ergocalciferol (Vitamin D2)) 50,000 Unit Capsule 1 Cap PO WEEKLY 28 09/05/19 Reported Lisinopril 40 Mg Tablet 20 Mg PO DAILY PRN 09/05/19 Reported Gabapentin 600 Mg Tablet 300 Mg PO QHS 09/05/19 Reported Emperatriz-Bid Caplet (Acidoph/L.bulg/Bif.b/S.thermop) 1 Each Tablet 1 Each PO TIDAC 03/23/17 Reported Atorvastatin Calcium 10 Mg Tablet 10 Mg PO QHS 09/16/16 Rx Midodrine Hcl 2.5 Mg Tablet 2.5 Mg PO [id number] 09/16/16 Rx Duloxetine Hcl 60 Mg Capsule.dr 60 Mg PO DAILY 09/12/16 Reported Impression . IMPRESSION: 1. Acute hypoxemic respiratory failure. 2. Elevated troponin, suspect, and non-ST segment elevation myocardial infarction. 3. Acute on chronic systolic heart failure. 4. Possible aspiration pneumonia. 5. Acute on chronic kidney disease. 6. Hypertension. 7. Diabetes. 8. Toxic metabolic encephalopathy. 9. Possible sepsis. 10. History of SARS-CoV-2 positive. 11. 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 12. History of Clostridium difficile. 13. 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 Decrease steroids Off of antibiotic Sodium is better continue the same Nebulized treatment Oxygen titration Follow cardiology input Monitor blood sugars dvt prophylaxis Case discussed with Dr. Prater yesterday FAMILIA DUARTE MD May 17, 2020 10:31
[2020-05-17 11:15] VITALS: BP 167/91
--- NOTE | 2020-05-17 11:51 | RAD ---
EXAM: CHEST 1 VIEW History: Increased crackles COMPARISON: 05/15/2020 TECHNIQUE: Single portable radiograph of the chest FINDINGS: The cardiac silhouette is unremarkable. Minimal left lung base atelectasis or infiltrate.. The costophrenic sulci are clear and well demarcated. IMPRESSION: Minimal left lung base atelectasis or infiltrate. Electronically signed by: Erick Fleming MD (05/17/2020 11:48 AM) [id number]
[2020-05-17 15:00] VITALS: BP 191/88
--- NOTE | 2020-05-17 15:30 | NUR ---
DR RUSSELL NOTIFIED OF PATIENTS INCREASED CRACKLES/ GARGLING. CXR ORDERS RECEIVED. DR RUSSELL NOTIFIED OF PATIENTS CXR RESULTS. PATIENT MOANING. PATIENTS BP ELEVATED AT THIS TIME. IV HYDRALAZINE AND MORPHINE GIVEN AT THIS TIME. PATIENT PLACED ON 2L OF OXYGEN. WILL CONTINUE TO MONITOR PATIENT
[2020-05-17] MEDS: hydrALAZINE 20 MG/ML VIAL. IVP PRN (15:43)
[2020-05-17] MEDS: MORPHINE SULFATE 2 MG/ML VIAL. IV PRN (15:44)
--- NOTE | 2020-05-17 16:51 | NUR ---
SW following. Spoke with RN and CM. Reviewed chart. Attempted to contact Dr. Julian for coordination of care. Pt remains nonverbal and COVID positive. Pt has had 2 failed swallow studies. Pt on IV Dextrose and IV Morphine. Spoke with RN who stated pt's family is not ready for hospice but doesn't want a feeding tube placed in pt per Dr. Prater. Discharge plan remains return to [facility] when stable. Pt on 1l 02. SW to continue following.
[2020-05-17 19:57] VITALS: BP 157/72
[2020-05-17] MEDS ORDERED: INSULIN GLARGINE SYRINGE. SQ SCH ×2 (21:00)
[2020-05-17 23:15] VITALS: BP 154/107
[2020-05-18] MEDS: METOPROLOL TARTRATE 5 MG/5 ML VIAL. IVP SCH ×3 (00:31→12:40)
[2020-05-18] MEDS: IV DEXTROSE 5% 1,000 ML IV SCH ×2 (00:36→09:07)
[2020-05-18 03:12] VITALS: BP 165/70
[2020-05-18 05:06] LABS: CALCIUM 8.1 mg/dL (8.5-10.1); CREATININE 0.9 mg/dL (0.7-1.3); GFR 80.6; POTASSIUM 3.7 mmol/L (3.5-5.1)
[2020-05-18] MEDS: INSULIN LISPRO 300 UNITS/3 ML VIAL. SQ SCH ×3 (06:00→12:00)
[2020-05-18 07:00] VITALS: BP 171/85
--- NOTE | 2020-05-18 07:43 | PDOC ---
GENERAL General: vss and afebrile. back to needing O2 again and at 4L/NC. chest with diffuse crackles, heart regular, abdomen benign, mitts on to keep him from pulling stuff off. speech still determining unsafe swallow. will need TPN if continued support ongoing which daughter desires. sodium better and AMANUEL resolved. no further hypoglycemia. discussed with nursing. VITAL SIGNS/I&O Vital Signs/I&O: Vital Signs Date Time Temp Pulse Resp B/P (MAP) Pulse Ox O2 Delivery O2 Flow Rate FiO2 05/18/20 06:24 71 165/70 05/18/20 05:21 96.4 96.4 05/18/20 03:12 20 90 Nasal Cannula 4.0 I & O 05/17/20 05/17/20 05/18/20 15:00 23:00 07:00 Intake Total 0 ml 950 ml Output Total 450 ml Balance -450 ml 0 ml 950 ml ALLERGIES Allergies: Allergies Coded Allergies Type Severity Reaction Last Updated Verified Influenza Virus Vaccines Allergy Intermediate 05/09/17 Yes I S O L A T I O N "AIRBOURNE" Allergy Unknown 05/16/20 Yes I S O L A T I O N *CONTACT* Allergy Unknown 05/12/17 Yes MEDS Medications: Current Medications Medications (Trade) Dose Ordered Sig/Chay Route PRN Reason Start Time Stop Time Status Last Admin Dose Admin Potassium Chloride/Water 100 ml @ 50 mls/hr 1X ONCE IV 05/17/20 10:00 05/17/20 11:59 DC 05/17/20 10:57 Potassium Chloride/Water 100 ml @ 50 mls/hr 1X ONCE IV 05/17/20 12:00 05/17/20 13:59 DC 05/17/20 13:20 Insulin Glargine (Lantus Syringe) 20 unit QHS SQ 05/17/20 21:00 05/17/20 21:00 LAB Lab: Laboratory Tests Test 05/17/20 12:04 05/17/20 12:15 05/17/20 18:36 05/18/20 00:19 Glucose (Fingerstick) 40 mg/dL (70-99) *L 200 mg/dL (70-99) H 124 mg/dL (70-99) H 141 mg/dL (70-99) H Test 05/18/20 03:58 05/18/20 06:17 Sodium Level 154 mmol/L (136-145) H Potassium Level 3.7 mmol/L (3.5-5.1) Chloride Level 117 mmol/L (98-107) H Carbon Dioxide Level 27 mmol/L (21-32) Anion Gap 10 (6-14) Blood Urea Nitrogen 36 mg/dL (8-26) H Creatinine 0.9 mg/dL (0.7-1.3) Estimated GFR (Cockcroft-Gault) 80.6 Glucose Level 184 mg/dL (70-99) H Calcium Level 8.1 mg/dL (8.5-10.1) L Glucose (Fingerstick) 152 mg/dL (70-99) H Laboratory Tests 05/18/20 03:58 Justicifation of Admission Dx: Justifications for Admission: Justification of Admission Dx: Yes Sepsis: Infection [place]: Acute NSTEMI Nutrition Consultation Dietary Evaluation: Recommendations by RD: Dietary education by RD, Increase Calorie Intake, Protein supplementation Comments: If aggressive care desired and if unable to advance diet, would recommend dobhoff for TFs to best meet nutrition needs, rec TFs per following: Glucerna 1.2@goal rate 50 ml/hr w/125 ml water flushes q4 hrs w/Pepe BID and liquid MVI (wound healing) Expected Outcomes/Goals: Diet advancement - not met, goal ongoing Interpretation of weight loss: >5% in 1 month Malnutrition Findings: Food and Nutrition Intake (Sev: <50% est energy req 5days Weight Status: Underweight LUISITO RUSSELL MD May 18, 2020 07:43
--- NOTE | 2020-05-18 08:15 | NUR ---
Pt Sat at 78% on 2L NC . Respiratory notified. Pt placed on simple mask 10L and Sat at 93%. Patient required deep suctioning performed by respiratory.- Patient Sat 100 % with nonrebreather 10L. Family notified by Nurse Mgr.
[2020-05-18] MEDS: ENOXAPARIN 40 MG/0.4 ML SYRINGE. SQ SCH ×2 (09:00→12:40)
[2020-05-18] MEDS ORDERED: methylPREDNISolone SOD SUCC PF 125 MG/2 ML VIAL. IV SCH (09:00)
[2020-05-18] MEDS: LACTOBACILLUS RHAMNOSUS GG 1 CAPSULE. PO SCH (09:00)
[2020-05-18] MEDS: VITS A & D/LANOLIN TOPICAL OINTMENT 42GM TUBE. TP SCH (09:51)
[2020-05-18] MEDS: ASPIRIN RECTAL 300 MG SUPP. PR SCH (09:51)
--- NOTE | 2020-05-18 10:40 | PDOC ---
Infectious Disease Note Subjective Subjective Nonverbal Satting > 95% on room air Marley bag (not tube) was changed No fevers PPN Vital Sign Vital Signs Vital Signs Date Time Temp Pulse Resp B/P (MAP) Pulse Ox O2 Delivery O2 Flow Rate FiO2 05/18/20 07:00 96.8 70 28 171/85 (113) 100 NonRebreather Mask 15.0 96.8 Physical Exam PHYSICAL EXAM GENERAL: Propped up in bed, alert, calm with mitts in place HEENT: Oral cavity, pharynx has poor dentition, dry. He has normal conjunctivae. NECK: Supple, without JVD. LUNGS: Improved aeration, nonlabored HEART: S1, S2. regular ABDOMEN: Soft, no guarding. GENITOURINARY: Marley is in place. EXTREMITIES: Right below-knee amputation without signs of complications, LLE without edema. Foot callous with iodine - NT NEUROLOGICAL: Alert, moved ext. Labs Lab Laboratory Tests Test 05/17/20 12:04 05/17/20 12:15 05/17/20 18:36 05/18/20 00:19 Glucose (Fingerstick) 40 mg/dL (70-99) 200 mg/dL (70-99) 124 mg/dL (70-99) 141 mg/dL (70-99) Test 05/18/20 03:58 05/18/20 06:17 Sodium Level 154 mmol/L (136-145) Potassium Level 3.7 mmol/L (3.5-5.1) Chloride Level 117 mmol/L (98-107) Carbon Dioxide Level 27 mmol/L (21-32) Anion Gap 10 (6-14) Blood Urea Nitrogen 36 mg/dL (8-26) Creatinine 0.9 mg/dL (0.7-1.3) Estimated GFR (Cockcroft-Gault) 80.6 Glucose Level 184 mg/dL (70-99) Calcium Level 8.1 mg/dL (8.5-10.1) Glucose (Fingerstick) 152 mg/dL (70-99) Micro Microbiology 05/06/20 Urine Culture - Final, Complete 05/06/20 Antimicrobic Susceptibility - Final, Complete 05/06/20 Blood Culture - Final, Complete NO GROWTH AFTER 5 DAYS Objective Assessment COVID + - 05/07 on steroids Leukopenia - ? viral - better Fever- ? COVID ? UTI vs med - improving CKD with AMANUEL - slight worse today Acute hypoxic resp failure improving, now on room air ? UTI - Morganella MDR and yeast CALB Elevated Troponin - ? type 2 NSTEMI Recent MRSA/Pseudomonas DM - not controlled H/o C-diff Plan Plan of Care Patient is going towards hospice supportive care ARLET ARANDA MD May 18, 2020 10:40
[2020-05-18 11:00] VITALS: BP 157/91
--- NOTE | 2020-05-18 11:00 | NUR ---
SW following. Reviewed chart and spoke with RN and CM. Sarwat Grajeda called on pt this morning. SW spoke with dtr Sowmya ([phone]) who stated she is ready for pt to be assessed for in-patient hospice. SW spoke with Dr. Prater who is agreeable. SW phoned and faxed referral for in-patient hospice to [facility], , (fax). Spoke with hospice nurse to coordinated care. Pt's dtr to sign consents and SW provided support. In-patient contracted sent over by [facility]. SW will follow as needed for support to pt and pt's dtr. Pt is COVID positive. Patient Choice of Vendor form completed. Addendum: 05/18/20 at 1340 by RALPH ODONNELL Pt meets in-patient hospice criteria and consents have been signed by the family and the contract from [facility] has also been obtained and completed. RN and SW awaiting return call from Dr. Prater to discharge pt and re-admit pt to in-patient hospice. BELLE notified boiler repair supervisor Gabriele Cole
--- NOTE | 2020-05-18 11:41 | PDOC ---
SUBJECTIVE ROS Stable, Nonverbal, Failed Swallow study OBJECTIVE Vital Signs Vital Signs Date Time Temp Pulse Resp B/P (MAP) Pulse Ox O2 Delivery O2 Flow Rate FiO2 05/18/20 07:00 96.8 70 28 171/85 (113) 100 NonRebreather Mask 15.0 96.8 I & 0 Intake and Output 05/18/20 07:00 Intake Total 950 ml Output Total 450 ml Balance 500 ml Intake Oral 0 ml IV Total 950 ml Output Urine Total 450 ml PHYSICAL EXAM Physical Exam GENERAL:NAD HEENT: Oral cavity moist NECK: Supple, LUNGS: CTA, nonlabored HEART: S1, S2. regular ABDOMEN: Soft, non tender GENITOURINARY: Chronic Marley is in place. 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 NEUROLOGICAL: Alert, moves ext. SKIN No rash DIAGNOSIS/ASSESSMENT Assessment & Plan HyperNatremia - Present since 05/11 PPN held, Na improving with IV D5W- dw RN HypoKalemia - Replaced IV KCL , normal this am AMANUEL at presentation - resolved COVID + Likely moving to Hospice care COMMENT/RELEVANT DATA Meds Current Medications Medications (Trade) Dose Ordered Sig/Chay Start Time Stop Time Status Last Admin Dose Admin Acetaminophen (Tylenol Supp) 650 mg 1X ONCE 05/09/20 05:00 05/09/20 05:01 DC 05/09/20 06:15 650 MG Amino Acids/ Glycerin/ Electrolytes 1,000 ml @ 75 mls/hr [id number] 05/09/20 08:30 05/14/20 10:55 DC 05/14/20 08:59 75 MLS/HR Aspirin (Aspirin Chewable) 324 mg 1X ONCE 05/06/20 21:00 05/06/20 21:01 DC 05/06/20 21:02 324 MG Aspirin (Aspirin Rectal Supp) 300 mg DAILY 05/08/20 09:00 05/18/20 09:51 300 MG Ceftriaxone Sodium (Rocephin) 1 gm 1X ONCE 05/06/20 20:30 05/06/20 20:32 DC 05/06/20 21:03 1 GM Daptomycin 380 mg/ Sodium Chloride 50 ml @ 100 mls/hr Q48H 05/07/20 16:00 05/09/20 07:56 DC 05/07/20 16:00 100 MLS/HR Dextrose 1,000 ml @ 75 mls/hr [id number] 05/16/20 19:00 05/18/20 00:36 125 MLS/HR Dextrose (Dextrose 50%-Water Syringe) 12.5 gm PRN Q15MIN PRN 05/08/20 11:45 05/17/20 12:06 12.5 GM Dextrose/Sodium Chloride 1,000 ml @ 75 mls/hr [id number] 05/16/20 10:15 05/16/20 18:06 DC 05/16/20 11:26 75 MLS/HR Enoxaparin Sodium (Lovenox 40mg Syringe) 40 mg BID 05/11/20 15:15 05/17/20 22:17 40 MG Fluconazole/ Sodium Chloride 50 ml @ 100 mls/hr Q24H 05/09/20 08:00 05/17/20 11:09 DC 05/17/20 09:09 100 MLS/HR Furosemide (Lasix) 40 mg 1X ONCE 05/07/20 11:15 05/07/20 11:16 DC 05/07/20 11:15 40 MG Hydralazine HCl (Apresoline Inj) 10 mg PRN Q4HRS PRN 05/09/20 17:00 05/17/20 15:43 10 MG Insulin Glargine (Lantus Syringe) 20 unit QHS 05/17/20 21:00 05/17/20 21:00 20 UNIT Insulin Human Lispro (HumaLOG) 10 units Q6HRS PRN 05/08/20 12:30 05/11/20 12:09 10 UNITS Insulin Human Regular (HumuLIN R VIAL) 10 unit 1X ONCE 05/06/20 22:00 05/06/20 22:01 DC 05/06/20 21:58 10 UNIT Lactobacillus Rhamnosus (Culturelle) 1 cap BID 05/08/20 21:00 05/16/20 20:20 1 CAP Linezolid/Dextrose 300 ml @ 300 mls/hr Q12HR 05/07/20 17:00 05/09/20 07:56 DC 05/08/20 21:29 300 MLS/HR Meropenem 500 mg/ Sodium Chloride 50 ml @ 100 mls/hr Q8HRS 05/10/20 21:00 05/17/20 11:09 DC 05/17/20 06:02 100 MLS/HR Methylprednisolone Sodium Succinate (SOLU-Medrol 125MG VIAL) 80 mg DAILY 05/18/20 09:00 05/18/20 09:51 80 MG Metoprolol Tartrate (Lopressor Vial) 5 mg Q6HRS 05/15/20 18:00 05/18/20 06:24 5 MG Morphine Sulfate (Morphine Sulfate) 2 mg PRN Q2HR PRN 05/15/20 12:15 05/17/20 15:44 2 MG Nitroglycerin (Nitro-Bid Oint) 1 inch 1X ONCE 05/15/20 12:15 05/15/20 12:16 DC 05/15/20 12:32 1 INCH Potassium Chloride/Water 100 ml @ 50 mls/hr 1X ONCE 05/17/20 12:00 05/17/20 13:59 DC 05/17/20 13:20 50 MLS/HR Sodium Chloride 1,000 ml @ 75 mls/hr [id number] 05/08/20 11:45 05/09/20 08:21 DC 05/08/20 21:51 75 MLS/HR Sterile Water (WATER for RESP) 1,000 ml CONT PRN 05/07/20 12:15 05/17/20 12:14 DC 05/07/20 21:30 1,000 ML Vitamin A/Vitamin D (Vitamin A & D Ointment) 1 kimberly BID 05/07/20 21:00 05/18/20 09:51 1 KIMBERLY Lab Laboratory Tests Test 05/17/20 12:04 05/17/20 12:15 05/17/20 18:36 05/18/20 00:19 Glucose (Fingerstick) 40 mg/dL (70-99) 200 mg/dL (70-99) 124 mg/dL (70-99) 141 mg/dL (70-99) Test 05/18/20 03:58 05/18/20 06:17 Sodium Level 154 mmol/L (136-145) Potassium Level 3.7 mmol/L (3.5-5.1) Chloride Level 117 mmol/L (98-107) Carbon Dioxide Level 27 mmol/L (21-32) Anion Gap 10 (6-14) Blood Urea Nitrogen 36 mg/dL (8-26) Creatinine 0.9 mg/dL (0.7-1.3) Estimated GFR (Cockcroft-Gault) 80.6 Glucose Level 184 mg/dL (70-99) Calcium Level 8.1 mg/dL (8.5-10.1) Glucose (Fingerstick) 152 mg/dL (70-99) Results All relevant outside records, renal labs, imaging studies, telemetry/EKG's were reviewed. Justicifation of Admission Dx: Justifications for Admission: Justification of Admission Dx: Yes Sepsis: Infection DE: Acute NSTEMI BILLY QUIROGA MD May 18, 2020 11:41
[2020-05-18 14:53] VITALS: BP 172/63
--- NOTE | 2020-05-18 15:43 | PDOC ---
PULMONARY PROGRESS NOTES Subjective Patient confused pulls on wires and tubes Vitals Vital Signs Date Time Temp Pulse Resp B/P (MAP) Pulse Ox O2 Delivery O2 Flow Rate FiO2 05/18/20 14:53 96.6 71 16 172/63 (99) 100 NonRebreather Mask 15.0 96.6 General: Alert Lungs: Crackles Cardiovascular: S1, S2 Abdomen: Soft Extremities: Other (Edema) Skin: Warm Labs Laboratory Tests Test 05/16/20 17:28 05/17/20 00:26 05/17/20 03:55 05/17/20 06:17 Glucose (Fingerstick) 80 mg/dL (70-99) 70 mg/dL (70-99) 49 mg/dL (70-99) Sodium Level 160 mmol/L (136-145) Potassium Level 3.2 mmol/L (3.5-5.1) Chloride Level 123 mmol/L (98-107) Carbon Dioxide Level 27 mmol/L (21-32) Anion Gap 10 (6-14) Blood Urea Nitrogen 42 mg/dL (8-26) Creatinine 0.9 mg/dL (0.7-1.3) Estimated GFR (Cockcroft-Gault) 80.6 Glucose Level 61 mg/dL (70-99) Calcium Level 7.9 mg/dL (8.5-10.1) Test 05/17/20 06:52 05/17/20 12:04 05/17/20 12:15 05/17/20 18:36 Glucose (Fingerstick) 151 mg/dL (70-99) 40 mg/dL (70-99) 200 mg/dL (70-99) 124 mg/dL (70-99) Test 05/18/20 00:19 05/18/20 03:58 05/18/20 06:17 05/18/20 12:20 Glucose (Fingerstick) 141 mg/dL (70-99) 152 mg/dL (70-99) 180 mg/dL (70-99) Sodium Level 154 mmol/L (136-145) Potassium Level 3.7 mmol/L (3.5-5.1) Chloride Level 117 mmol/L (98-107) Carbon Dioxide Level 27 mmol/L (21-32) Anion Gap 10 (6-14) Blood Urea Nitrogen 36 mg/dL (8-26) Creatinine 0.9 mg/dL (0.7-1.3) Estimated GFR (Cockcroft-Gault) 80.6 Glucose Level 184 mg/dL (70-99) Calcium Level 8.1 mg/dL (8.5-10.1) Laboratory Tests Test 05/17/20 18:36 05/18/20 00:19 05/18/20 03:58 05/18/20 06:17 Glucose (Fingerstick) 124 mg/dL (70-99) 141 mg/dL (70-99) 152 mg/dL (70-99) Sodium Level 154 mmol/L (136-145) Potassium Level 3.7 mmol/L (3.5-5.1) Chloride Level 117 mmol/L (98-107) Carbon Dioxide Level 27 mmol/L (21-32) Anion Gap 10 (6-14) Blood Urea Nitrogen 36 mg/dL (8-26) Creatinine 0.9 mg/dL (0.7-1.3) Estimated GFR (Cockcroft-Gault) 80.6 Glucose Level 184 mg/dL (70-99) Calcium Level 8.1 mg/dL (8.5-10.1) Test 05/18/20 12:20 Glucose (Fingerstick) 180 mg/dL (70-99) Medications Active Scripts Medications Dose Route/Sig Max Daily Dose Days Date Category Zyvox (Linezolid) 600 Mg Tablet 600 Mg PO BID 10 04/15/20 Rx Cipro (Ciprofloxacin Hcl) 250 Mg Tablet 500 Mg PO BID 10 04/15/20 Rx Ondansetron Odt (Ondansetron) 4 Mg Tab.rapdis 1 Tab PO PRN Q6-8HRS 03/20/20 Rx Lantus (Insulin Glargine,Hum.rec.anlog) 100 Unit/1 Ml Vial 10 Unit SQ QHS 30 01/02/20 Rx Isosorbide Mononitrate Er (Isosorbide Mononitrate) 30 Mg Tab.er.24h 30 Mg PO DAILY 10/18/19 Reported Carvedilol 25 Mg Tablet 12.5 Mg PO BIDWMEALS 09/05/19 Reported Proair Hfa Inhaler (Albuterol Sulfate) 8.5 Gm Hfa.aer.ad 2 Puff IH PRN Q4-6HRS PRN 21 09/05/19 Reported Aspirin 81 Mg Tab.chew 1 Tab PO DAILY 09/05/19 Reported Vitamin D2 (Ergocalciferol (Vitamin D2)) 50,000 Unit Capsule 1 Cap PO WEEKLY 28 09/05/19 Reported Lisinopril 40 Mg Tablet 20 Mg PO DAILY PRN 09/05/19 Reported Gabapentin 600 Mg Tablet 300 Mg PO QHS 09/05/19 Reported Emperatriz-Bid Caplet (Acidoph/L.bulg/Bif.b/S.thermop) 1 Each Tablet 1 Each PO TIDAC 03/23/17 Reported Atorvastatin Calcium 10 Mg Tablet 10 Mg PO QHS 09/16/16 Rx Midodrine Hcl 2.5 Mg Tablet 2.5 Mg PO [id number] 09/16/16 Rx Duloxetine Hcl 60 Mg Capsule.dr 60 Mg PO DAILY 09/12/16 Reported Impression . IMPRESSION: 1. Acute hypoxemic respiratory failure. 2. Elevated troponin, suspect, and non-ST segment elevation myocardial infarction. 3. Acute on chronic systolic heart failure. 4. Possible aspiration pneumonia. 5. Acute on chronic kidney disease. 6. Hypertension. 7. Diabetes. 8. Toxic metabolic encephalopathy. 9. Possible sepsis. 10. History of SARS-CoV-2 positive. 11. 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 12. History of Clostridium difficile. 13. 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 Continue current support, disposition is somewhat a challenge Decrease steroids Off of antibiotic Sodium is better continue the same Nebulized treatment Oxygen titration Follow cardiology input Monitor blood sugars dvt prophylaxis Case discussed with Dr. Prater yesterday FAMILIA DUARTE MD May 18, 2020 15:43
[2020-05-18] MEDS ORDERED: MORP2CAR IV (16:34)
--- NOTE | 2020-05-18 16:35 | SNU/HH DC ---
DISCHARGE ORDERS DISCHARGE INFORMATION: DISCHARGE DATE: May 18, 2020 FINAL DIAGNOSIS Problems Medical Problems: (1) NSTEMI, initial episode of care Status: Acute (2) UTI (urinary tract infection) Status: Acute CONDITION ON DISCHARGE: Stable CODE STATUS: Code Status: DNR/DNI HALFWAY: SNF STAY <30 DAYS: No HOSPICE: HOSPICE: Yes HOSPICE EVAL & TREAT: Yes LTAC: ADMIT TO LTAC: No POST DISCHARGE ORDERS: ACTIVITY ORDERS: Activity as tolerated WEIGHT BEARING STATUS: As tolerated DIET AFTER DISCHARGE: ADA WOUND/INCISION CARE: Keep wound/cast CDI CHECKS AFTER DISCHARGE: CHECKS AFTER DISCHARGE: Check blood press - daily, Check blood sugar, ac/hs, Check your Temp as needed TREATMENT/EQUIPMENT ORDERS: ADAPTIVE EQUIPMENT NEEDED: None Physical Therapy For: Evalulation/Treatment Occupational Therapy For: Evaluation/Treatment DISCHARGE MEDICATIONS: Home Meds Active Scripts Morphine Sulfate (MORPHINE SULFATE) 2 Mg/1 Ml Cartridge, 2 MG IV PRN Q2HR PRN for MODERATE TO SEVERE PAIN for 30 Days, #30 EACH Prov:LUISITO RUSSELL MD 05/18/20 Insulin Glargine,Hum.rec.anlog (LANTUS) 100 Unit/1 Ml Vial, 10 UNIT SQ QHS for diabetes for 30 Days, #1 EACH Prov:LUISITO RUSSELL MD 01/02/20 Discontinued Reported Medications Isosorbide Mononitrate (ISOSORBIDE MONONITRATE ER) 30 Mg Tab.er.24h, 30 MG PO DAILY for HTN, TAB.SR 10/18/19 Carvedilol (CARVEDILOL) 25 Mg Tablet, 12.5 MG PO BIDWMEALS for CARDIAC, TAB 09/05/19 Albuterol Sulfate (PROAIR HFA INHALER) 8.5 Gm Hfa.aer.ad, 2 PUFF IH PRN Q4-6HRS PRN for wheezing for 21 Days, #1 INHALER 0 Refills 09/05/19 Aspirin (ASPIRIN) 81 Mg Tab.chew, 1 TAB PO DAILY for CIRCULATION., #30 TAB 3 Refills 09/05/19 Ergocalciferol (Vitamin D2) (VITAMIN D2) 50,000 Unit Capsule, 1 CAP PO WEEKLY for SUPPLEMENT for 28 Days, #4 CAP 0 Refills 09/05/19 Lisinopril (Lisinopril) 40 Mg Tablet, 20 MG PO DAILY PRN for ELEVATED BP, SEE COMMENTS, TAB 09/05/19 Gabapentin (GABAPENTIN) 600 Mg Tablet, 300 MG PO QHS for NEUROGENIC PAIN, TAB 09/05/19 Acidoph/L.bulg/Bif.b/S.thermop (SALO-BID CAPLET) 1 Each Tablet, 1 EACH PO TIDAC, TAB 03/23/17 Duloxetine Hcl (DULOXETINE HCL) 60 Mg Capsule.dr, 60 MG PO DAILY for depression, CAP 09/12/16 Discontinued Scripts Linezolid (ZYVOX) 600 Mg Tablet, 600 MG PO BID for uti for 10 Days, #20 TAB Prov:LUISITO RUSSELL MD 04/15/20 Ciprofloxacin Hcl (CIPRO) 250 Mg Tablet, 500 MG PO BID for uti for 10 Days, #20 TAB Prov:LUISITO RUSSELL MD 04/15/20 Ondansetron (ONDANSETRON ODT) 4 Mg Tab.rapdis, 1 TAB PO PRN Q6-8HRS, #12 TAB Prov:BAR FOUNTAIN DO 03/20/20 Atorvastatin Calcium (ATORVASTATIN CALCIUM) 10 Mg Tablet, 10 MG PO QHS, #30 TAB 6 Refills Prov:LUISITO RUSSELL MD 09/16/16 Midodrine Hcl (MIDODRINE HCL) 2.5 Mg Tablet, 2.5 MG PO [id number], #90 TAB 6 Refills Prov:LUISITO RUSSELL MD 09/16/16 LUISITO RUSSELL MD May 18, 2020 16:35
--- NOTE | 2020-05-18 17:07 | NUR ---
DISCHARGE TO INPATIENT HOSPICE PER DR RUSSELL.
--- NOTE | 2020-06-12 19:02 | DS ---
DATE OF DISCHARGE: 05/18/2020 PRIMARY DIAGNOSIS: Acute hypoxic respiratory failure. ADDITIONAL DIAGNOSES: Non-ST elevated myocardial infarction, acute on chronic systolic heart failure, possible aspiration pneumonia, hypertension, diabetes, acute on chronic kidney disease improved, toxic metabolic encephalopathy, [id number] positive disease, history of methicillin-resistant Staphylococcus aureus and Pseudomonas infection, hypernatremia improved. CHIEF COMPLAINT AND HISTORY OF PRESENT ILLNESS: This 84-year-old white male is well known to me from followup in the office. The patient was admitted through the Emergency Room from snf with the chief complaint of shortness of breath. He had food on the side of his mouth, so there was a question of aspiration. ____ placed him on 5 liters, oxygen was 88%. LABORATORY DATA: Initial white count was normal at 9100, hemoglobin 11.2. Initial blood gases showed pO2 of 51 on 100% FiO2. He was positive for COVID-19 disease. Initial chest x-ray shows no acute cardiopulmonary process. SUMMARY OF STAY: The patient was admitted, treated supportively throughout the stay, covered with broad-spectrum antibiotics. He was initially on Vapotherm and this eventually improved to where he was on room air. Renal sign for hypernatremia, acute kidney disease, which were resolving with IV fluids. During the stay, ID followed along for broad-spectrum antibiotic coverage and throughout the stay, Pulmonary also followed along with treatment as did Cardiology. He did have metabolic encephalopathy throughout the stay that improved somewhat towards the end, but family finally decided with ongoing dysphagia, unable to eat a diet and need for TPN or more aggressive treatment to go to hospice and this was accomplished on the 05/18. DISPOSITION: The patient was transferred to hospice. Please see orders regarding diet, medication, activity, etc. LUISITO RUSSELL MD DR: CORINNE/vielka JOB#: [id number] / [id number]
== END 2020-05-18 16:31 | disposition hospice, inpatient (51) | DRG 177 ==
LOC: ER 19:22 → 2 SOUTH 21:20 → 6 SOUTH 22:59 → 1 WEST ICU 05-07 11:02 → 6 SOUTH 05-11 20:23
PROVIDERS: ADMIT Family Medicine; ATTEND Family Medicine
DX: U07.1 COVID-19 (principal); J96.01 Acute respiratory failure with hypoxia; I50.23 Acute on chronic systolic (congestive) heart failure; G92 Toxic encephalopathy; J12.89 Other viral pneumonia; I21.4 Non-ST elevation (NSTEMI) myocardial infarction; I13.0 Hypertensive heart and chronic kidney disease with heart failure and stage 1 through stage 4 chronic kidney disease, or unspecified chronic kidney disease; N39.0 Urinary tract infection, site not specified; E87.0 Hyperosmolality and hypernatremia; N17.9 Acute kidney failure, unspecified; Z88.0 Allergy status to penicillin; Z88.7 Allergy status to serum and vaccine; E11.22 Type 2 diabetes mellitus with diabetic chronic kidney disease; I25.10 Atherosclerotic heart disease of native coronary artery without angina pectoris; Z82.49 Family history of ischemic heart disease and other diseases of the circulatory system; E11.51 Type 2 diabetes mellitus with diabetic peripheral angiopathy without gangrene; E87.6 Hypokalemia; I49.9 Cardiac arrhythmia, unspecified; F03.90 Unspecified dementia, unspecified severity, without behavioral disturbance, psychotic disturbance, mood disturbance, and anxiety; I45.10 Unspecified right bundle-branch block; I95.1 Orthostatic hypotension; K31.89 Other diseases of stomach and duodenum; K81.9 Cholecystitis, unspecified; N18.9 Chronic kidney disease, unspecified; N40.1 Benign prostatic hyperplasia with lower urinary tract symptoms; Z83.3 Family history of diabetes mellitus; Z86.14 Personal history of Methicillin resistant Staphylococcus aureus infection; Z87.440 Personal history of urinary (tract) infections; Z87.891 Personal history of nicotine dependence; F32.9 Major depressive disorder, single episode, unspecified; F41.9 Anxiety disorder, unspecified; M19.90 Unspecified osteoarthritis, unspecified site; Z89.511 Acquired absence of right leg below knee; T83.021A Displacement of indwelling urethral catheter, initial encounter; Y92.89 Other specified places as the place of occurrence of the external cause
CPT/HCPCS: 36415; 36600; 71045; 80048; 80053; 81001; 82550; 82805; 82962; 83605; 83615; 83735; 83880; 84145; 84443; 84484; 85025; 86140; 87040; 87077; 87086; 87106; 87186; 93005; 94760; 96361; 96372; 96374; 99285; J0360; J0696; J0878; J1450; J1650; J1815; J1940; J2020; J2185; J2270; J2930; J3480; J3490; J7030; J7042; J7060; 92526-GN; 92610-GN; G0378; U0003-CS

== ENCOUNTER 2020-05-18 17:27 | Inpatient (IN) | payer OTHER ==
[~2020-05-18] VITALS: Ht 157.5 cm; Wt 59.0 kg
[~2020-05-18 17:27] MED LIST changes: +MORP2CAR IV
[2020-05-18 19:00] VITALS: BP 145/112
[2020-05-18] MEDS ORDERED: ACETAMINOPHEN 650 MG SUPP.RECT. PR PRN (19:15)
[2020-05-18] MEDS ORDERED: ATROPINE 1% OPHTH SOLUTION 5ML BOTTLE. SL PRN (19:15)
[2020-05-18] MEDS ORDERED: MORPHINE SULFATE 2 MG/ML VIAL. IV SCH (21:00)
[2020-05-18] MEDS: VITS A & D/LANOLIN TOPICAL OINTMENT 42GM TUBE. TP SCH (21:38)
[2020-05-19] VITALS (9 sets, daily range): BP systolic 105–206; BP diastolic 52–108
[2020-05-19] MEDS: METOPROLOL TARTRATE 5 MG/5 ML VIAL. IVP SCH ×4 (00:40→17:22)
[2020-05-19] MEDS: VITS A & D/LANOLIN TOPICAL OINTMENT 42GM TUBE. TP SCH ×2 (09:00→20:34)
[2020-05-19] MEDS: MORPHINE SULFATE 2 MG/ML VIAL. IV PRN (09:29)
--- NOTE | 2020-05-19 13:50 | HP ---
ADMIT DATE: 05/18/2020 HISTORY OF PRESENT ILLNESS: The patient is an 84-year-old male patient, an elderly , was admitted with chest pain, has recent history of COVID-19. The patient has been admitted for further evaluation and treatment and the patient has multiple medical problems including dementia, diabetes, type 2 diabetes, hypertension, MRSA, prostatitis, UTIs, enlarged prostate. His past medical history is significant for right below-knee amputation, who apparently was admitted with non-ST segment elevation myocardial infarction. He was seen in consultation by the expanded duty dental assistant as well as infectious disease specialist, human resources benefits coordinator. He was basically treated with acute hypoxic respiratory failure, urinary tract infection, growing Morganella. His troponin was slightly elevated, but was felt to be type 2 demand ischemia. He was tested positive for COVID-19 treated with steroids. He developed leukopenia. He was initially treated with daptomycin and linezolid for possible lung infection. The patient did not do well, continued to basically gradually deteriorated and his family opted for hospice care and therefore, he was discharged to inpatient hospice under [facility] team. PHYSICAL EXAMINATION: GENERAL: When I saw him today, he looked well and was clearly in no apparent distress. He was slightly pale, but no jaundice, cyanosis, or thyromegaly. No jugular venous distension. No lower limb edema. VITAL SIGNS: His heart rate was 74, blood pressure was 173/70, temperature was 96.4, respiratory rate was 18, and oxygen saturation was 100% on FiO2 at 5 liters. HEAD, EYES, EARS, NOSE AND THROAT: Showed normocephalic, atraumatic. NECK: Supple. HEART: Showed normal first and second heart sounds. No gallop or murmur. CHEST: Clear to auscultation. No crepitation or rhonchi. ABDOMEN: Distended, soft, nontender. NEUROLOGIC: He was sleeping comfortably. ASSESSMENT AND PLAN: 1. Acute hypoxic respiratory failure. 2. Elevated troponin, suspected non-ST segment elevation myocardial infarction, type 2. 3. Acute on chronic systolic heart failure. 4. Questionable aspiration pneumonia. 5. Acute on chronic kidney disease. 6. Hypertension. 7. Type 2 diabetes mellitus. 8. Toxic metabolic encephalopathy. 9. Possible sepsis. 10. History of SARS-CoV-2 positive. PLAN: To continue obviously with comfort care. He is now on morphine as well as Ativan for comfort care. ELIZA SERRA MD DR: FIFI/vielka JOB#: [id number] / [id number]
[2020-05-20] MEDS: METOPROLOL TARTRATE 5 MG/5 ML VIAL. IVP SCH ×2 (03:02)
[2020-05-20 03:12] VITALS: BP 134/65
[2020-05-20 07:00] VITALS: BP 120/93
[2020-05-20] MEDS: VITS A & D/LANOLIN TOPICAL OINTMENT 42GM TUBE. TP SCH (09:00)
[2020-05-20] MEDS ORDERED: METOPROLOL TARTRATE 5 MG/5 ML VIAL. IVP PRN (11:00)
--- NOTE | 2020-05-20 11:47 | PN ---
DATE: 05/20/2020 SUBJECTIVE: The patient is resting, slightly propped up in bed, in no apparent respiratory distress. He continued to be encephalopathic. When he was started on Ativan, his blood pressure is much better controlled now, so we did switch his metoprolol to be given as needed. PHYSICAL EXAMINATION: GENERAL: On examining him, he looked pale, but no jaundice, cyanosis or thyromegaly. No jugular venous distention. No lower limb edema. VITAL SIGNS: His heart rate was 99, blood pressure was 120/93, temperature 97.2, respiratory rate was 18 and oxygen saturation was 95% on 5 liters of oxygen. HEAD, EYES, EARS, NOSE, AND THROAT: Showed normocephalic, atraumatic. NECK: Supple. CARDIAC: Normal first and second heart sounds. No gallop or murmur. CHEST: Clear to auscultation. No crepitation or rhonchi. ABDOMEN: Distended, soft, nontender. No guarding or rigidity. No organomegaly. All hernial orifices are intact and bowel sounds are normal. NEUROLOGIC: He is encephalopathic. ASSESSMENT: 1. Acute hypoxic respiratory failure. 2. Elevated troponin, suspected non-ST segment elevation myocardial infarction, type 2 demand ischemia. 3. Fzsqa-dr-epkleyw systolic heart failure. 4. Questionable aspiration pneumonia. 5. Acute on chronic kidney injury. 6. Hypertension. 7. Type 2 diabetes mellitus. 8. Toxic metabolic encephalopathy. 9. History of SARS-CoV-2 positivity. PLAN: Obviously to continue with comfort care. He is now on morphine as well as Ativan. ELIZA SERRA MD DR: FIFI/vielka JOB#: [id number] / [id number]
[2020-05-20] MEDS ORDERED: VITS A & D/LANOLIN TOPICAL OINTMENT 42GM TUBE. TP PRN (12:45)
--- NOTE | 2020-05-20 18:00 | NUR ---
Pt requiring more oxygen at 6L/NC at this time, respirations slowed at 14, pt resting comfortably at this time. Daughter notified and up to visit.
[2020-05-20 19:00] VITALS: BP 99/57
[2020-05-21 07:30] VITALS: BP 85/52
--- NOTE | 2020-05-21 10:32 | PN ---
DATE: 05/21/2020 SUBJECTIVE: The patient is resting, slightly propped up comfortably. He is encephalopathic, unresponsive, and he is hypertensive. PHYSICAL EXAMINATION: GENERAL: When I examined him, he looked pale, cachectic, but no jaundice, cyanosis or thyromegaly. No jugular venous distention. No limb edema. VITAL SIGNS: His heart rate was 109, blood pressure was 85/52, temperature was 98, respiratory rate was 14 and oxygen saturation was 91% on 6 liters of oxygen. The rest of exam is stable. ASSESSMENT: 1. Acute hypoxic respiratory failure. 2. Elevated troponin, suspect non-ST segment elevation myocardial, type 2 demand ischemia. 3. Acute on chronic systolic heart failure. 4. Questionable aspiration pneumonia. 5. Acute on chronic kidney injury. 6. Hypertension. 7. Type 2 diabetes mellitus. 8. Toxic metabolic encephalopathy. 9. History of [id number] positivity. PLAN: To continue with comfort care. Continue with morphine, Ativan as needed. ELIZA SERRA MD DR: FIFI/vielka JOB#: [id number] / [id number]
[2020-05-21] MEDS: MORPHINE SULFATE 2 MG/ML VIAL. IV PRN ×4 (13:02→17:00)
--- NOTE | 2020-05-21 15:21 | NUR ---
SW following. Spoke with RN and reviewed chart. Pt remains appropriate for [facility] hospice with Tamanna.
--- NOTE | 2020-05-21 20:31 | NUR ---
Tamanna Bae RN, came at approx 1850 to check on pt. After she entered the pt's room, the pt was showing asystole on the monitor. Two nurse verification was completed to verify pt's expiration at 1900. Pt cleaned, bagged, and transported to [facility] [place].
--- NOTE | 2020-05-22 09:46 | NUR ---
Amber from [facility] called for an update, . Pt passed on in-patient hospice service. No further SW needs at this time.
--- NOTE | 2020-06-15 14:55 | DS ---
DATE OF DISCHARGE: 05/21/2020 SUMMARY HOSPITAL COURSE: The patient is an 84-year-old male patient who was basically admitted with COVID-19 pneumonia, acute hypoxic respiratory failure, toxic metabolic encephalopathy, acute on chronic kidney disease as well as non-ST segment elevation myocardial infarction with resultant acute on chronic systolic heart failure with possible aspiration pneumonia and the family basically decided to consider hospice care and the patient was admitted for ____ with inpatient hospice and the patient's condition continued to deteriorate slowly and eventually the patient was found by the nursing staff in asystole and as he was DNR/DNI, a decision was made not to do any CPR and he was basically pronounced at approximately 1850 on 05/21/2020, DISCHARGE DIAGNOSES: 1. The cause of is cardiopulmonary arrest. 2. Acute on chronic hypoxic respiratory failure. 3. Acute on chronic systolic congestive heart failure. 4. Non-ST segment elevation myocardial infarction 4. Coronavirus COVID-19 pneumonia. ELZIA SERRA MD DR: FIFI/vielka JOB#: [id number] / [id number]
== END 2020-05-21 20:20 | disposition expired | DRG 177 ==
LOC: 6 SOUTH 17:27
PROVIDERS: ADMIT Internal Medicine; ATTEND Internal Medicine
DX: J69.0 Pneumonitis due to inhalation of food and vomit (principal); I21.4 Non-ST elevation (NSTEMI) myocardial infarction; J96.01 Acute respiratory failure with hypoxia; I50.23 Acute on chronic systolic (congestive) heart failure; G92 Toxic encephalopathy; I13.0 Hypertensive heart and chronic kidney disease with heart failure and stage 1 through stage 4 chronic kidney disease, or unspecified chronic kidney disease; N17.9 Acute kidney failure, unspecified; N39.0 Urinary tract infection, site not specified; N18.9 Chronic kidney disease, unspecified; I25.2 Old myocardial infarction; N40.0 Benign prostatic hyperplasia without lower urinary tract symptoms; Z86.19 Personal history of other infectious and parasitic diseases; Z89.511 Acquired absence of right leg below knee; F03.90 Unspecified dementia, unspecified severity, without behavioral disturbance, psychotic disturbance, mood disturbance, and anxiety; D72.819 Decreased white blood cell count, unspecified; E11.22 Type 2 diabetes mellitus with diabetic chronic kidney disease
CPT/HCPCS: 82962; J2060; J2270; J3490; 99285-25; G0378